=== PATIENT | male | born 1955 ===

== ENCOUNTER 2021-12-16 02:08 | Emergency (ER) | payer MEDICARE, SELFPAY ==
--- NOTE | ~2021-12-16 | XR_ITS ---
EXAMINATION: XR SHOULDER, RIGHT CLINICAL INFORMATION: Status post fall COMPARISON: None TECHNIQUE: Three views of the right shoulder. FINDINGS: Glenohumeral alignment is anatomic. No acute fracture is seen. The acromioclavicular joint appears intact with mild degenerative change. XR/XR shoulder RT min 2V IMPRESSION: No acute findings.
[2021-12-16 02:15] VITALS: BP 168/80; PULSE 84; O2SAT 98
[2021-12-16 02:20] VITALS: BP 150/81; PULSE 73; RESP 14; TEMP 36.6; O2SAT 96; BMI 24.4
--- NOTE | 2021-12-16 02:24 | ED_ITS ---
HPI - Fall General Chief Complaint: Fall Stated Complaint: fall/ RT shoulder pain Time Seen by Provider: 12/16/21 02:24 Source: patient Mode of arrival: ambulatory Limitations: no limitations History of Present Illness HPI Narrative: Patient a minor fall at home fell on his bed when tried to lay down no severe injuries but complaining of pain the right shoulder came with no deformity no other injury Related Data Allergies Allergy/AdvReac Type Severity Reaction Status Date / Time No Known Allergies Allergy Verified 12/16/21 02:35 Review of Systems Review of Systems: Yes all other systems are reviewed and are negative [facility] Social History Social History Advance Directives: No Physical Exam Vital Signs: Vital Signs: Last Vital Signs Temp 97.9 F 12/16/21 02:20 Pulse 73 12/16/21 02:20 Resp 14 12/16/21 02:20 BP 150/81 H 12/16/21 02:20 Pulse Ox 96 12/16/21 02:20 BMI result Body Mass Index 24.4 Appearance: Alert. Oriented X3. No acute distress. Eyes: PERRLA, HEENT: Pharynx normal. Oral Mucosa moist atraumatic normocephalic Neck: Normal inspection. Neck supple. CVS: Normal heart rate and rhythm. Pulses normal. Respiratory: No respiratory distress. Equal air entry bilateral, no wheezing/rales/rhonchi Abdomen: Soft and nontender. Bowel sounds are present, no mass palpable, Skin: Skin warm and dry. Normal skin color. Normal skin turgor. Extremities: No lower extremity edema. No calf tenderness right shoulder normal contour no deformity neurovascular intact soft tissue tenderness++ Neuro: Oriented X 3. No motor deficit. MDM - Fall MDM Narrative Medical decision making narrative: Patient x-ray negative for any fracture dislocation patient moving his right arm pretty well likely patient has rotator cuff tendinitis causing the pain. Will discharge patient home Discharge Plan Discharge Clinical Impression: Contusion of right shoulder Patient Disposition: Home, Self-Care Instructions: Fall Prevention for Older Adults (ED), Contusion in Adults (ED) Additional Instructions: Care and cautions as advised Follow-up with PCP Interventions: ED Discharge Assessment Last Done: 12/16/21 04:30 Discharge Date/Time: 12/16/21 04:35
== END 2021-12-16 04:35 | disposition home or self-care (01) ==
LOC: HO.ED 04:36
PROVIDERS: Emergency Provider Internal Medicine
DX: S40.011A Contusion of right shoulder, initial encounter (principal); W19.XXXA Unspecified fall, initial encounter; Y93.9 Activity, unspecified; Y92.003 Bedroom of unspecified non-institutional (private) residence as the place of occurrence of the external cause; Y99.9 Unspecified external cause status
CPT/HCPCS: 73030; 99283; 99284

== ENCOUNTER 2021-12-23 11:13 | Inpatient (IN) | payer MEDICARE, SELFPAY ==
--- NOTE | ~2021-12-23 | XR_ITS ---
EXAMINATION: XR LUMBOSACRAL SPINE CLINICAL INFORMATION: Low back pain. COMPARISON: None TECHNIQUE: Three views of the lumbosacral spine. FINDINGS: There is normal lumbar lordosis. The vertebral heights and alignment is normal. There is right-sided disc prosthesis at L4-L5. There is loss of L5-S1 disc height. Rest the disc heights are normal. There are bilateral pedicular screws at L2, L3 , L4 and L5 vertebra with interconnecting rods for posterior fusion. No acute fracture or lytic process seen. The SI joints are symmetrical. The paravertebral soft tissues are normal. XR/XR lumbar spine 2-3V IMPRESSION: Disc prosthesis at L4-L5 disc level with degenerative disc changes L5-S1 disc level. No visible acute fracture or dislocation seen. There are bilateral L 2 to L5 pedicle screws and interconnecting rods for posterior stability.
--- NOTE | ~2021-12-23 | CT_ITS ---
EXAMINATION: CT HEAD WITHOUT CONTRAST CT CERVICAL SPINE WITHOUT CONTRAST CLINICAL INFORMATION: Unwitnessed fall. Neck pain and headache. COMPARISON: CT head 09/22/2021. Selected images of the cervical spine MRI of 12/07/2021. TECHNIQUE: Multidetector volumetric CT imaging of the head and cervical spine is acquired without intravenous contrast administration. Postprocessing is performed at a dedicated workstation. Multiplanar reformatted images are submitted. This CT scan was performed using dose optimization techniques as appropriate to a performed exam including the following: *Automated exposure control. *Adjustment of mA and/or kV according to patient size (this includes techniques or standardized protocols for targeted exams were dose is matched to indication/reason for exam; i.e. extremities or head). *Use of iterative reconstruction technique. DLP: 487 mGy-cm (CT cervical spine). 789 mGy-cm (CT head). FINDINGS: CT HEAD: There is no evidence of acute intracranial hemorrhage, midline shift or mass effect. [id number] matter differentiation is well preserved. No evidence of acute territorial infarction. There are bilateral periventricular white matter mild patchy low-attenuation changes likely of chronic microangiopathy. There is mild global volume loss with proportionate dilatation of the ventricles and cortical sulci. No evidence of abnormal extra-axial fluid collection. Osseous calvarium is intact. Calvarial soft tissues are unremarkable. Mastoid air cells and middle ear cavities are well aerated. A 2.2 cm mucous retention cyst in the visualized left maxillary sinus and smaller mucous retention cyst in the visualized right maxillary sinus are stable findings compared to previous CT. Remainder of the visualized paranasal sinuses are well aerated. CT CERVICAL SPINE: The vertebral body heights and alignment are maintained. Posterior elements are intact and in normal alignment. Anterior cervical fusion hardware is noted at C5-C6 with intervertebral disc spacer in place. Mild narrowing of the intervertebral disc spaces at C4-C5 and C6-C7. No evidence of tight central canal stenosis. [id number] bilateral neural foraminal stenosis is noted at C5-C6. No evidence of prevertebral soft tissue swelling. No significant thyroid nodule. Changes of centrilobular emphysema are noted in the lung apices. CT/CT cervical spine wo con IMPRESSION: HEAD: No evidence of acute intracranial abnormality. 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 CERVICAL SPINE: No evidence of acute fracture or subluxation in the cervical spine, greatest at C5-C6 with bilateral neural foraminal stenosis of [id number] degree. Cervical spondylosis. Anterior fusion hardware at C5-C6 is intact without evidence of loosening or hardware fracture.
--- NOTE | ~2021-12-23 | XR_ITS ---
EXAMINATION: XR HIP, RIGHT CLINICAL INFORMATION: Right hip pain COMPARISON: None TECHNIQUE: Two views of the right hip and AP pelvis. FINDINGS: AP pelvis: There is normal symmetry of bilateral hip joints and SI joints. No visible acute fracture, dislocation seen. AP and frog-leg views right hip reveal no bony erosive changes, loose bodies or periarticular spurring. No acute fracture or dislocation seen. The soft tissues of the right hip and normal. XR/XR hip RT min 2V IMPRESSION: Unremarkable right hip and AP pelvis exam.
--- NOTE | ~2021-12-23 | XR_ITS ---
EXAMINATION: XR SHOULDER, RIGHT CLINICAL INFORMATION: Right shoulder pain status post fall COMPARISON: 12/16/2021 TECHNIQUE: Three views of the right shoulder. FINDINGS: The bones and soft tissues are grossly normal. No fracture. Glenohumeral and acromioclavicular alignment is grossly normal. On the Y view, the humeral head appears minimally anteriorly displaced but this may be technical in nature. If possible, and axillary view could be obtained. No abnormal soft tissue calcifications. XR/XR shoulder RT min 2V IMPRESSION: Grossly normal right shoulder. No fracture is seen.
--- NOTE | ~2021-12-23 | CT_ITS ---
EXAMINATION: CT HEAD WITHOUT CONTRAST CT CERVICAL SPINE WITHOUT CONTRAST CLINICAL INFORMATION: Unwitnessed fall. Neck pain and headache. COMPARISON: CT head 09/22/2021. Selected images of the cervical spine MRI of 12/07/2021. TECHNIQUE: Multidetector volumetric CT imaging of the head and cervical spine is acquired without intravenous contrast administration. Postprocessing is performed at a dedicated workstation. Multiplanar reformatted images are submitted. This CT scan was performed using dose optimization techniques as appropriate to a performed exam including the following: *Automated exposure control. *Adjustment of mA and/or kV according to patient size (this includes techniques or standardized protocols for targeted exams were dose is matched to indication/reason for exam; i.e. extremities or head). *Use of iterative reconstruction technique. DLP: 487 mGy-cm (CT cervical spine). 789 mGy-cm (CT head). FINDINGS: CT HEAD: There is no evidence of acute intracranial hemorrhage, midline shift or mass effect. Bqwr-io-coyqf matter differentiation is well preserved. No evidence of acute territorial infarction. There are bilateral periventricular white matter mild patchy low-attenuation changes likely of chronic microangiopathy. There is mild global volume loss with proportionate dilatation of the ventricles and cortical sulci. No evidence of abnormal extra-axial fluid collection. Osseous calvarium is intact. Calvarial soft tissues are unremarkable. Mastoid air cells and middle ear cavities are well aerated. A 2.2 cm mucous retention cyst in the visualized left maxillary sinus and smaller mucous retention cyst in the visualized right maxillary sinus are stable findings compared to previous CT. Remainder of the visualized paranasal sinuses are well aerated. CT CERVICAL SPINE: The vertebral body heights and alignment are maintained. Posterior elements are intact and in normal alignment. Anterior cervical fusion hardware is noted at C5-C6 with intervertebral disc spacer in place. Mild narrowing of the intervertebral disc spaces at C4-C5 and C6-C7. No evidence of tight central canal stenosis. Wrzldkke-mr-yhwoam bilateral neural foraminal stenosis is noted at C5-C6. No evidence of prevertebral soft tissue swelling. No significant thyroid nodule. Changes of centrilobular emphysema are noted in the lung apices. CT/CT head/brain wo con IMPRESSION: HEAD: No evidence of acute intracranial abnormality. 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 CERVICAL SPINE: No evidence of acute fracture or subluxation in the cervical spine, greatest at C5-C6 with bilateral neural foraminal stenosis of airhdvhv-wh-wjrdtt degree. Cervical spondylosis. Anterior fusion hardware at C5-C6 is intact without evidence of loosening or hardware fracture.
--- NOTE | ~2021-12-23 | XR_ITS ---
EXAMINATION: XR CHEST CLINICAL INFORMATION: Shortness of breath COMPARISON: None TECHNIQUE: Frontal view of the chest was obtained. FINDINGS: Cardiac leads overlie the chest. The lungs are well expanded. There is no focal consolidation, edema, or effusion. No pneumothorax. The cardiomediastinal silhouette is within normal limits. No acute osseous abnormality. XR/XR chest 1V IMPRESSION: No acute pulmonary finding.
[2021-12-23 11:24] VITALS: BP 96/48; PULSE 89; RESP 19; TEMP 36.6; O2SAT 98; BMI 23.7
--- NOTE | 2021-12-23 11:51 | ED_ITS ---
HPI - General Adult General Chief complaint: Back Pain/Injury Stated complaint: back and leg pain Time Seen by Provider: 12/23/21 11:51 Source: patient Mode of arrival: other (ambulates with walker) Limitations: no limitations History of Present Illness HPI narrative: Patient is a 66 year old male presenting to the emergency department today with right hip pain and requesting senior living placement. Patient states that in July of 2021, he had a spinal fusion and he was in a rehab facility for 2 weeks. Patient states that he has been using a walker at home and feels like he would be better off at a senior living facility because he is still having frequent falls getting tripped up with his walker. Patient states that he also has a history of parkinsons. Patient denies falling today. Patient denies ever hitting his head with a fall. Patient states that his right hip has been bothering him some and he would like that checked while he is here. Patient denies any dizziness, lightheadedness, abdominal pain, nausea, vomiting, fever, chills, blurry vision, double vision, loss of vision, chest pain, difficulty breathing, shortness of breath, night sweats, pain with urination, increased urinary frequency, increased urinary urgency, blood in his urine or stool, syncope or a near syncopal episode, bowel incontinence, bladder incontinence, bowel retention, bladder retention, or any other complaints at this time. Onset (ago): month(s) Location: back and right (hip) Severity: mild Severity scale (1-10): 3 Quality: dull Pain Consistency: constant Relieving factors: none Exacerbating factors: none Associated symptoms: denies other symptoms Treatments prior to arrival: none Related Data Home Medications Medication Instructions Recorded Confirmed amlodipine 2.5 mg tablet 7.5 mg PO DAILY 12/23/21 12/23/21 ascorbic acid (vitamin C) 1,000 mg 1,000 mg PO DAILY 12/23/21 12/23/21 tablet carbidopa 25 mg-levodopa 100 mg 1 tab PO BID@0700,1300 12/23/21 12/23/21 tablet gabapentin 100 mg capsule 200 mg PO DAILY 12/23/21 12/23/21 gabapentin 300 mg capsule 300 mg PO BEDTIME 12/23/21 12/23/21 lisinopril 10 mg tablet 10 mg PO DAILY 12/23/21 12/23/21 melatonin 3 mg tablet 3 mg PO BEDTIME PRN 12/23/21 12/23/21 ropinirole 0.25 mg tablet 0.25 mg PO BEDTIME 12/23/21 12/23/21 Allergies Allergy/AdvReac Type Severity Reaction Status Date / Time No Known Allergies Allergy Verified 12/16/21 02:35 Review of Systems Constitutional: Constitutional: Reports no additional constitutional complaints, Denies chills, Denies fever(s) and Denies night sweats Eyes: Eyes: Reports no additional eye complaints, Denies blurry vision, Denies change in vision, Denies diplopia, Denies eye discharge, Denies loss of vision and Denies eye pain ENT: Denies dizziness Cardiovascular: Cardiovascular: Reports no additional cardiovascular complaints, Denies chest pain, Denies lightheadedness, Denies Loss of Consciousness and Denies dyspnea Respiratory: Respiratory: Reports no additional respiratory complaints and Denies dyspnea Gastrointestinal: Gastrointestinal: Reports no additional gastrointestinal complaints, Denies abdominal pain, Denies melena, Denies hematochezia, Denies change in bowel habits and Denies change in stool character Genitourinary: Genitourinary: Reports no additional male genitourinary complaints, Denies hematuria, Denies oliguria, Denies difficulty urinating, Denies dysuria, Denies urinary frequency, Denies urinary hesitancy, Denies urinary incontinence and Denies urinary urgency Musculoskeletal: Musculoskeletal: Reports no additional musculoskeletal compla ints, Denies numbness and Denies tingling Comments: right hip pain, chronic back pain Neurologic: Denies dizziness, Denies loss of vision, Denies numbness and Denies tingling Psychiatric: Psychiatric: Reports no additional psychiatric complaints Endocrine: Endocrine: Reports no additional endocrine complaints Hematologic/Lymphatic: Hematologic/Lymphatic: Reports no additional hematologic/lymphatic complaints Allergic/Immunologic: Allergic/Immunologic: Reports no additional allergic/immunologic complaints [facility] Past Medical History Attestation statement: The following information was validated with the patient. Source: old records reviewed Social History Social History Alcohol intake: former Patient Tobacco Use Status: Former Tobacco user Use of substances other than those prescribed or required for medical reasons: No Advance Directives: No Advance Directives Information Provided: No Physical Exam ED Vital Signs: Vital Signs - 24 hr 12/23/21 11:24 12/23/21 13:15 12/23/21 14:35 Temperature 98 F 98.5 F Pulse Rate 89 89 79 Respiratory Rate 19 16 Blood Pressure 96/48 L 96/48 L 133/70 Pulse Oximetry 98 98 99 BMI result Body Mass Index 23.7 Const General: cooperative, no acute distress, alert and awake Nutritional Appearance: well nourished Orientation/consciousness: patient oriented x3 Limitations: no limitations HENMT Head: Yes normal to inspection and Yes atraumatic Ears: hearing grossly normal bilaterally and external ears normal General nose exam: Normal external nose present, no nasal discharge noted and no epistaxis Face and sinus: Yes normal facial exam, No abrasion and No laceration Mouth: Normal oral and palatal mucosa present, no drooling and no muffled voice Eyes General: appearance normal, both eyes and all related structures Periorbital: periorbital findings normal Eyelids: Yes eyelids normal Conjunctivae: conjunctivae normal Pupils: Equal, round and reactive pupils present EOM: EOMs intact bilaterally Neck Neck: Yes normal visual inspection, Yes full ROM and Yes no lymphadenopathy Chest Chest palpation & inspection: normal inspection of the chest Resp Effort & Inspection: normal respiratory effort and able to speak in complete sentences Auscultation: clear to auscultation bilaterally Cardio Rate: regular rate Rhythm: regular rhythm GI Inspection: Yes normal to inspection Neuro General: patient oriented x3 and moves all extremities Cranial nerves: Yes Equal, round and reactive pupils present Cognition (Neuro): normal cognition Motor exam (neuro): 5/5 motor strength present throughout Sensory Exam: Normal double simultaneous stimulation for sensation Coordination: [id number] test normal Extrem General: Yes normal to inspection, Yes full ROM and Yes capillary refill normal Psych Appearance: grossly normal Mental Status: mental status grossly normal Affect: normal affect Attitude: cooperative Thought process: Normal thought process present Thought content: Normal thought content present Insight: Good insight present (Psych) Medical Decision Making MDM Narrative Medical decision making narrative: Patient is a 66 year old male presenting to the emergency department today with right hip pain, back pain, and requesting nursing placement. Patient's physical exam was unremarkable. Patient's blood work was unremarkable. Patient's right hip and lumbar x-rays showed no acute process. I explained my physical exam findings as well as all test results to the patient. I answered all questions asked by the patient. Patient is still awaiting OT, PT and case management evaluation. Physician Observation begun at 1900. Differential Diagnosis Differential Diagnosis: Right hip pain, chronic back pain Medical Records Medical records reviewed: Yes I reviewed the patient's medical records. Lab Data Lab results reviewed: Yes I reviewed the patient's lab results. Result diagrams: 12/23/21 12:47 12/23/21 12:48 Labs: Lab Results 12/23/21 12/23/21 12/23/21 Range/Units 12:47 12:48 12:48 WBC 8.1 (4.8-10.8) X10*3/uL RBC 3.98 L (4.60-5.80) X10*6/uL Hgb 12.0 L (14.0-18.0) g/dl Hct 36.0 L (42.0-52.0) % MCV 90.5 (80.0-98.0) fL MCH 30.2 (27.0-33.0) pg MCHC 33.3 (31.0-36.0) g/dl RDW 12.4 (11.0-16.0) % Plt Count 356 (160-400) X10*3/uL MPV 8.8 L (9.4-12.4) fL Immature Gran % (Auto) 0.4 (0.0-0.4) % Neut % (Auto) 73.6 H (45-73) % Lymph % (Auto) 13.1 L (20-40) % [place] % (Auto) 11.6 H (2-11) % Eos % (Auto) 1.1 (0-4) % Baso % (Auto) 0.2 (0-2) % Lymph # (Auto) 1.1 L (1.2-4.9) X10*3/uL [place] # (Auto) 0.9 (0.1-1.2) X10*3/uL Eos # (Auto) 0.1 (0.0-0.4) X10*3/uL Baso # (Auto) 0.0 (0.0-0.2) X10*3/uL Abs Immat Gran (auto) 0.03 (0.00-0.03) X10*3/uL Absolute Neuts (auto) 6.0 (2.0-8.3) x10*3/uL Absolute Nucleated RBC 0.000 (0.0-0.012) X10*3/uL Nucleated RBC % (auto) 0.0 (0.0-0.2) /100WBC Sodium 136 (135-145) mmol/L Potassium 4.1 (3.3-5.1) mmol/L Chloride 101 (96-108) mmol/L Carbon Dioxide 26 (22-29) mmol/L Anion Gap 13 (12-20) BUN 11 (9-16) mg/dL Creatinine 0.75 (0.5-1.4) mg/dL Estim Creat Clear Calc 101.7 Estimated GFR > 60 Random Glucose 103 (60-115) mg/dL Calcium 8.6 (8.4-10.2) mg/dL Total Bilirubin 0.8 (0.0-1.0) mg/dL AST 19 (5-37) U/L ALT 9 (0-40) U/L Alkaline Phosphatase 84 (39-117) U/L Total Protein 6.1 L (6.5-8.0) g/dL Albumin 3.6 (3.5-5.0) g/dL COVID-19 (MIR) Negative (Negative) COVID-19 Clin Com See Note Imaging Data Right hip x-ray: Attestation: I personally reviewed and interpreted this imaging study as follows: My impression: No acute process. Radiologist's impression: EXAMINATION: XR HIP, RIGHT CLINICAL INFORMATION: Right hip pain COMPARISON: None TECHNIQUE: Two views of the right hip and AP pelvis. FINDINGS: AP pelvis: There is normal symmetry of bilateral hip joints and SI joints. No visible acute fracture, dislocation seen. AP and frog-leg views right hip reveal no bony erosive changes, loose bodies or periarticular spurring. No acute fracture or dislocation seen. The soft tissues of the right hip and normal.? XR/XR hip RT min 2V IMPRESSION: Unremarkable right hip and AP pelvis exam. Dictated By: Bull Raza MD Signed By: Electronically signed by Bull Raza MD 12/23/21 5530 Lumbar x-ray: Attestation: I personally reviewed and interpreted this imaging study as follows: My impression: EXAMINATION: XR LUMBOSACRAL SPINE CLINICAL INFORMATION: Low back pain. COMPARISON: None TECHNIQUE: Three views of the lumbosacral spine. FINDINGS: There is normal lumbar lordosis. The vertebral heights and alignment is normal. There is right-sided disc prosthesis at L4-L5. There is loss of L5-S1 disc height. Rest the disc heights are normal. There are bilateral pedicular screws at L2, L3 , L4 and L5 vertebra with interconnecting rods for posterior fusion. No acute fracture or lytic process seen. The SI joints are symmetrical. The paravertebral soft tissues are normal. XR/XR lumbar spine 2-3V IMPRESSION: Disc prosthesis at L4-L5 disc level with degenerative disc changes L5-S1 disc level. No visible acute fracture or dislocation seen. There are bilateral L 2 to L5 pedicle screws and interconnecting rods for posterior stability. Dictated By: Bull Raza MD Signed By: Electronically signed by Bull Raza MD 12/23/21 4166 Discharge Plan Discharge Clinical Impression: Hip pain, Back pain, Parkinson disease Patient Disposition: Still a Patient Prescriptions: No Action melatonin 3 mg Tablet 3 mg PO BEDTIME PRN (Reason: Sleep) 0RF lisinopril 10 mg Tablet 10 mg PO DAILY 0RF gabapentin 300 mg Capsule 300 mg PO BEDTIME 0RF gabapentin 100 mg Capsule 200 mg PO DAILY 0RF amlodipine 2.5 mg Tablet 7.5 mg PO DAILY 0RF carbidopa-levodopa 25-100 mg Tablet 1 tab PO BID@0700,1300 0RF ropinirole 0.25 mg Tablet 0.25 mg PO BEDTIME 0RF Rx Instructions: administer 1-3 hours before bedtime ascorbic acid (vitamin C) 1,000 mg Tablet 1,000 mg PO DAILY 0RF Print Language: Iraqi
[2021-12-23 12:53] LABS: MANUAL DIFF FLAG NO
[2021-12-23 12:54] LABS: Basophils Percent Auto 0.2 % (0-2); Eosinophils Absolute Auto 0.1 X10*3/uL (0.0-0.4); Eosinophils Percent Auto 1.1 % (0-4); Imm Gran Abs Auto 0.03 X10*3/uL (0.00-0.03); Imm Gran Pct Auto 0.4 % (0.0-0.4); Lymphocytes Absolute Auto 1.1 X10*3/uL (1.2-4.9); Lymphocytes Percent Auto 13.1 % (20-40); Mean Corpuscular HGB Conc 33.3 g/dl (31.0-36.0); Mean Corpuscular Hemoglobin 30.2 pg (27.0-33.0); Mean Corpuscular Volume 90.5 fL (80.0-98.0); Mean Platelet Volume 8.8 fL (9.4-12.4); Monocytes Absolute Auto 0.9 X10*3/uL (0.1-1.2); Monocytes Percent Auto 11.6 % (2-11); Neutrophils Percent Auto 73.6 % (45-73); Platelet Count 356 X10*3/uL (160-400); Red Blood Count 3.98 X10*6/uL (4.60-5.80); Red Cell Distribution Width 12.4 % (11.0-16.0); White Blood Count 8.1 X10*3/uL (4.8-10.8)
[2021-12-23 13:15] VITALS: BP 96/48; PULSE 89; O2SAT 98
[2021-12-23 13:15] LABS: COVID-19 Test Negative (Negative); IDNOW Serial# 55D5AD1C
[2021-12-23 13:19] LABS: Alanine Aminotransferase 9 U/L (0-40); Albumin Level 3.6 g/dL (3.5-5.0); Alkaline Phosphatase 84 U/L (39-117); Anion Gap 13 (12-20); Aspartate Amino Transferase 19 U/L (5-37); Bilirubin Total 0.8 mg/dL (0.0-1.0); Blood Urea Nitrogen 11 mg/dL (9-16); Calcium 8.6 mg/dL (8.4-10.2); Carbon Dioxide 26 mmol/L (22-29); Chloride 101 mmol/L (96-108); Creatinine Clr Calc Pharmacy 101.7; Estimated Glomerular Filt Rate > 60; Glucose Random 103 mg/dL (60-115); Potassium 4.1 mmol/L (3.3-5.1); Sodium 136 mmol/L (135-145); Total Protein 6.1 g/dL (6.5-8.0)
[2021-12-23 14:35] VITALS: BP 133/70; PULSE 79; RESP 16; TEMP 36.9; O2SAT 99
[2021-12-23] MEDS: Carbidopa/Levodopa 25/100 TABLET 0.5 TAB PO (14:58)
--- NOTE | 2021-12-23 15:09 | PC.NURSE ---
Pt describes mult recent falls at home. most recent was yesterday. i hit the floor hard . has been minimally ambulatory in department. just now was up to BR with shuffled gait, difficulty keeping center of gravity over feet. has walker now at bedside and will ring for help but even with walker is somewhat unsteady.
--- NOTE | 2021-12-23 15:28 | MHC.CM.ED ---
Addendum entered by Yancy Novoa 12/23/21 16:14: [facility] is not able to offer a bed. Patient was at [facility] from 08/04/21-. He was then transferred to [facility]. They feel patient needs intermediate level of care. This was discussed with patient. Patient requesting referrals to 1) [facility] and 2)[facility]. Referrals made via [facility]. [facility] Patient aware he will have to provide CM with at least 2 choices if [facility] and [facility] are not able to offer a bed. Original Note: Received case management consult from [facility]. Patient is from home.Has a history of Parksinson's. Patient has been experiencing increased weakness and falls. Work up essentially negative. Met with patient in regards to discharge planning. Patient lives with his girlfriend, ambulates with a walker and had no services prior to coming to the ER. PCP is Heather Ernst. Patient has been to [facility] in the past and is requesting a referral to that facility. Referral made via [facility]. Contuinue to monitor for d/c needs.
--- NOTE | 2021-12-23 16:14 | PHA.MEDREC ---
MED REC COMPLETE, NO ISSUES Pharmacy Consult ? Medication Reconciliation Pharmacy has completed the medication reconciliation.
--- NOTE | 2021-12-23 18:11 | MHC.CM.ED ---
CM waiting on bed offers [facility] or [facility]. [facility] did not offer a bed. Pt unhappy about staying overnight, but is agreeable. CM spoke with patient about plan if [facility] do not offer a bed. Pt reluctantly agreeable to referral at [facility] and [facility]. Referrals placed. CM to follow for d/c needs.
--- NOTE | 2021-12-23 18:14 | PC.NURSE ---
Pt has been up to bathroom mult times always with assist. poor balance
[2021-12-23 20:44] VITALS: BP 134/68; PULSE 88; RESP 18; TEMP 36.9; O2SAT 95
[2021-12-23] MEDS: rOPINIRole HCL 0.25 MG TABLET PO (20:48)
[2021-12-23] MEDS: Gabapentin 300 MG CAPSULE PO (20:48)
[2021-12-23 23:37] VITALS: BP 120/72; PULSE 128; RESP 18; TEMP 36.9; O2SAT 96
--- NOTE | 2021-12-24 01:25 | PC.NURSE ---
I assumed nursing care of David at 1900. Since that time he has remained alert, oriented x 3. He is aware that he is awaiting case management eval in the morning and verbalizes an understanding of this. He has no complaints: no chest pain, no SOB, speech clear and appropriate. No nausea, no vomiting. He is taking PO food, fluids and meds without difficulty. David has ambulated to and from the bathroom in bed 7 with the walker. He insists that he is fine doing this by himself. However, he is not. He is extremely unsteady and has difficulty lifting his legs to take steps - he appears as if he needs to drag his legs while leaning forward on the walker. I assisted the pt into and out from the bathroom and back into his stretcher safely. We will continue to monitor David.
[2021-12-24 05:50] VITALS: BP 140/74; PULSE 105; RESP 18; TEMP 36.7; O2SAT 97
[2021-12-24] MEDS: Gabapentin 100 MG CAPSULE 200 MG PO (08:01)
[2021-12-24] MEDS: lisinopriL 10 MG TABLET PO (08:02)
[2021-12-24] MEDS: Ascorbic Acid 500 MG TABLET 1000 MG PO (08:02)
[2021-12-24] MEDS: amLODIPine Besylate 2.5 MG TABLET 7.5 MG PO (08:03)
[2021-12-24] MEDS: Carbidopa/Levodopa 25/100 TABLET 1 TAB PO ×2 (08:03→12:33)
[2021-12-24 10:44] VITALS: BP 137/80; PULSE 91; RESP 14; O2SAT 95
[2021-12-24] MEDS: Acetaminophen 325 MG TABLET 975 MG PO (10:46)
--- NOTE | 2021-12-24 11:38 | PC.NURSE ---
Patient is alert and oriented x3. VSS. Patient reports chronic lower back and right knee/thigh pain ranging from 3/10-10/10. Patient was medicated with Tylenol 975 mg-reports good relief-pain level is 4/10 at present. Patient ambulates with a w/walker-gait is slow, unsteady at times. Patient requires supervision with ambulation. Patient instructed to use a call lee/ inform staff to receive assistance get out of the bed to prevent falls-patient verbalized understanding. Patient taking medications with good compliance-no issues swallowing. Appetite is good. Last BM 12/23/2021. Skin assessment completed-no open wounds noted. Patient is able to make his needs known.
[2021-12-24 17:47] VITALS: BP 140/73; PULSE 96; RESP 16; TEMP 36.7; O2SAT 95
[2021-12-24 18:00] VITALS: BP 143/73; PULSE 85; RESP 15; TEMP 37.2; O2SAT 97
--- NOTE | 2021-12-24 18:35 | PC.NURSE ---
Patient is bed reporting that he fell about 30 min ago while trying to get out of the bed, patient reports new pain in right shoulder 7/10 at present-patient also reports chronic, intrmittent pain in right shoulder that could go up to 5/10. Patient denies nausea, no changes to vision. Patient reports he fell on his his right arm and did not strike his head. VS obtained-stable. Provider notified-pt to have X-ray of right shoulder and CT scan of head.
[2021-12-24] MEDS: Gabapentin 300 MG CAPSULE PO (21:34)
[2021-12-24] MEDS: rOPINIRole HCL 0.25 MG TABLET PO (21:34)
[2021-12-25 00:33] VITALS: BP 134/78; PULSE 116; RESP 16; TEMP 36.9; O2SAT 97
[2021-12-25 06:28] VITALS: BP 137/64; PULSE 104; RESP 14; O2SAT 95
--- NOTE | 2021-12-25 07:02 | PC.NURSE ---
pt moved 13 due fall and monitoring camera in place. Bed alarm on.
[2021-12-25] MEDS: Ascorbic Acid 500 MG TABLET 1000 MG PO (07:21)
[2021-12-25] MEDS: Carbidopa/Levodopa 25/100 TABLET 1 TAB PO ×2 (07:21→13:22)
[2021-12-25] MEDS: lisinopriL 10 MG TABLET PO (07:21)
[2021-12-25] MEDS: Gabapentin 100 MG CAPSULE 200 MG PO (07:21)
[2021-12-25] MEDS: amLODIPine Besylate 2.5 MG TABLET 7.5 MG PO (07:21)
--- NOTE | 2021-12-25 09:09 | MHC.CM.ED ---
Addendum entered by Yancy Novoa 12/25/21 10:36: [facility]'t [facility] bed today. Met with patient in regards to discharge planning again. Referral made to [facility] at patient's request. Continue to monitor for d/c needs. Original Note: Patient remains in ER. [facility] does not have a male bed available today. Clinical updates sent to [facility]. [facility] does not have a bed. Continue to monitor for d/c needs.
[2021-12-25 13:19] VITALS: BP 112/68; PULSE 82; RESP 19; TEMP 36.6; O2SAT 99
[2021-12-25 21:09] VITALS: BP 128/65; PULSE 87; RESP 19; TEMP 37.2; O2SAT 95
[2021-12-25] MEDS: Gabapentin 300 MG CAPSULE PO (21:11)
[2021-12-25] MEDS: rOPINIRole HCL 0.25 MG TABLET PO (22:02)
--- NOTE | 2021-12-25 23:05 | PC.NURSE ---
pt climbing OOB standing up before redirected by staff. telesitted alarmed notified staff
--- NOTE | 2021-12-25 23:15 | PC.NURSE ---
pt attemping to climb OOB, redirection with minimal effect
[2021-12-25 23:35] VITALS: BP 137/69; PULSE 91; RESP 18; O2SAT 96
--- NOTE | 2021-12-25 23:48 | PC.NURSE ---
This RN contacting nursing mattress and boxsprings supervisor regarding need for a sitter as pt keeps getting out of bed with video monitor. Per nursing mattress and boxsprings supervisor, no sitters available. This RN contacting monitor room, asking them to sound the alarm before pt gets OOB.
[2021-12-26] VITALS (13 sets, daily range): BP systolic 113–140; BP diastolic 64–89; PULSE 75–126; RESP 11–24; TEMP 36.4–36.9; O2SAT 95–100
--- NOTE | 2021-12-26 | ECG_ITS ---
Test Reason : tachy Blood Pressure : / mmHG Vent. Rate : 108 BPM Atrial Rate : 000 BPM P-R Int : 000 ms QRS Dur : 094 ms QT Int : 330 ms P-R-T Axes : 000 002 110 degrees QTc Int : 442 ms Sinus rhythm in first part of EKG; Frequent PACs in second half Nonspecific ST and T wave abnormality Premature ventricular complexes Abnormal ECG No previous ECGs available Referred By: Meena Crisostomo Electronically Signed By:AMANDA MAST
[2021-12-26] MEDS: LORazepam 1 MG TABLET PO (01:00)
--- NOTE | 2021-12-26 04:53 | PC.NURSE ---
pt noted to be intermittently tachycardic, state ekg obtained which showed afib with RVR. HR 70-122 MD ventura notified. pt intermittently desaturates to 89-90% on RA before improving to 95%
[2021-12-26 04:56] LABS: MANUAL DIFF FLAG NO
[2021-12-26 04:57] LABS: Basophils Percent Auto 0.4 % (0-2); Eosinophils Absolute Auto 0.3 X10*3/uL (0.0-0.4); Eosinophils Percent Auto 3.4 % (0-4); Hematocrit 37.1 % (42.0-52.0); Hemoglobin 12.4 g/dl (14.0-18.0); Imm Gran Abs Auto 0.03 X10*3/uL (0.00-0.03); Imm Gran Pct Auto 0.4 % (0.0-0.4); Lymphocytes Absolute Auto 1.6 X10*3/uL (1.2-4.9); Lymphocytes Percent Auto 21.3 % (20-40); Mean Corpuscular HGB Conc 33.4 g/dl (31.0-36.0); Mean Corpuscular Volume 89.8 fL (80.0-98.0); Mean Platelet Volume 8.8 fL (9.4-12.4); Monocytes Percent Auto 14.2 % (2-11); Neutrophils Absolute Auto 4.4 x10*3/uL (2.0-8.3); Neutrophils Percent Auto 60.3 % (45-73); Platelet Count 401 X10*3/uL (160-400); Red Blood Count 4.13 X10*6/uL (4.60-5.80); Red Cell Distribution Width 12.5 % (11.0-16.0); White Blood Count 7.3 X10*3/uL (4.8-10.8)
[2021-12-26 04:59] LABS: VBG Base Excess 5.8 mmol/L; VBG HCO3 32 mmol/L (22-26); VBG pCO2 53 mmHg; VBG pH 7.38 (7.32-7.43); VBG pO2 50 mmHg
[2021-12-26 05:00] LABS: Venous Blood Gas Refer to POC result
[2021-12-26 05:03] LABS: INTERNATIONAL NORM RATIO 1.1 (0.9-1.1); Prothrombin Time 12.1 SEC (9.9-13.0)
[2021-12-26 05:05] LABS: D Dimer High Sensitivity 611 NG/ML
[2021-12-26 05:11] LABS: COVID-19 Test Negative (Negative); IDNOW Serial# 16C4AD1C; Influenza A Negative (Negative); Influenza B2 Negative (Negative)
[2021-12-26 05:16] LABS: Alanine Aminotransferase 20 U/L (0-40); Albumin Level 3.6 g/dL (3.5-5.0); Alkaline Phosphatase 89 U/L (39-117); Anion Gap 10 (12-20); Aspartate Amino Transferase 19 U/L (5-37); Bilirubin Total 0.9 mg/dL (0.0-1.0); Blood Urea Nitrogen 11 mg/dL (9-16); Carbon Dioxide 30 mmol/L (22-29); Chloride 101 mmol/L (96-108); Creatinine Clr Calc Pharmacy 104.5; Estimated Glomerular Filt Rate > 60; Glucose Random 104 mg/dL (60-115); Magnesium 2.3 mg/dL (1.6-2.6); Potassium 4.3 mmol/L (3.3-5.1); Sodium 137 mmol/L (135-145); Total Protein 6.3 g/dL (6.5-8.0)
[2021-12-26 05:18] LABS: B Type Natriuretic Peptide 106 pg/mL (<100)
[2021-12-26] MEDS: Carbidopa/Levodopa 25/100 TABLET 1 TAB PO ×2 (06:55→16:32)
[2021-12-26] MEDS: Furosemide 40 MG/4 ML VIAL IVPUSH (06:55)
--- NOTE | 2021-12-26 07:00 | CA_ITS ---
Transthoracic Echocardiogram Patient (Last, First, Middle): David Julio D Gender: Male Date of : 1955 Age: 66 Procedure Date: 12/26/2021 Procedure Type: Transthoracic Echocardiogram Location: ER Height: 180.34 cm Weight: 77.11 kg BSA: 1.97 m2 Heart Rate: bpm BP: 117 / 64 [address] Vending Route Driver: [id number] Referring MD: Kevin Fernandes MD Symptoms: new onset a. fib, possible chf Study Quality: Fair/contast ECG Rhythm: Sinus with PACs Conclusions: - The left ventricular systolic function is moderately decreased. The visually estimated ejection fraction is between 35-40%. - The basal inferior segment is akinetic. - No obvious valvular pathology seen on this study. Findings Procedure Information Contrast agent, definity, is being given per protocol without apparent complications. Left Ventricle Normal left ventricular cavity size. There is mildly increased left ventricular wall thickness. The left ventricular systolic function is moderately decreased. The visually estimated ejection fraction is between 35 40%. There is moderate global hypokinesis. Diastolic function is normal for age. Wall Motion Rest Echo Findings The basal inferior segment is akinetic. Right Ventricle Normal right ventricular cavity size and systolic function. Atria The left atrium is moderately dilated. The right atrium is normal in size. Aortic Valve There is a normal trileaflet aortic valve. There is no aortic valve stenosis. There is no aortic valve regurgitation. Mitral Valve The mitral valve appears normal. There is no mitral valve regurgitation. There is no mitral valve stenosis. Pulmonic Valve The pulmonic valve is likely normal. Tricuspid Valve Normal tricuspid valve structure. There is trace tricuspid valve regurgitation. Tricuspid regurgitation envelope is inadequate for calculation of right ventricular systolic pressure. Great Vessels The asc aorta is normal in size. Venous The inferior vena cava was not well visualized. The inferior vena cava is normal in size. Pericardium/Pleural There is no evidence of pericardial effusion. Prior Study Comparison No prior study available for comparison. Recommendations, Care & Conclusions No obvious valvular pathology seen on this study. Measurements 2D Linear Measurements IVSd: 1.08 0.6-0.9/0.6-1.0 cm LVIDd: 5.52 3.9-5.3/4.2-5.9 cm LVIDd Index: 2.80 2.4-3.2/2.2-3.1 cm/m2 LVIDs: 4.54 2.0-3.6 cm LVPWd: 1.05 0.7-1.1 cm LA Diam: 3.90 2.7-3.8/3.0-4.0 cm LAIDs Index: 1.98 1.5-2.3 cm/m2 LV Mass: 290.68 67-162/88-224 g LV Mass Index: 147.55 43-95/49-115 g/m2 LVOT Diam: 2.10 3.0+(-)1.3 cm 2D Systolic Function EF 4C: 48.30 >55% EF 2C: 40.90 >55% EF BiP: 44.30 >55% Mitral Valve MV Pk E: 0.51 MV PK A: 0.77 MV Decel Time: 198.00 E/A: 0.70 E'Lateral: 9.14 E'Medial: 6.20 E/E' Med: 8.20 E/E' Lat: 5.60 PHT: 58.00 MVA PHT: 3.79 Decel [place]: 2.57 Aortic Valve AoV Pk Andrew: 1.80 AoV Mn Andrew: 1.12 AoV VTI: 0.33 AoV Pk Grad: 13.00 Aov Mn Grad: 6.00 KIM Cont.VTI: 2.19 LVOT LVOT Pk Andrew: 1.03 LVOT Mn Andrew: 0.72 LVOT VTI: 0.21 LVOT Pk Grad: 4.00 LVOT Mn Grad: 2.00 LVOT Diam: 2.10 LVOT Area: 3.46 Diastolic Function MV Pk E: 0.51 MV Pk A: 0.77 E/A: 0.70 E'Medial: 6.20 E/E' Med: 8.20 E' Laterial: 9.14 E/E' Lat: 5.60 Right Ventricle TAPSE (mm): 24.30 TVS' Andrew: 14.40 Tricuspid Valve RA Press: 3.00 Great Vessels Aorta Sinus of Valsalva: 3.12 2.0-3.[address] [place]: 2.48 1.7-3.4 cm Ao Asc: 2.80 2.1-3.4 cm Ao Arch: 3.20 Updated in Other Vendor System with Status of Final Bharathi Lawson MD electronically signed on 12/26/2021 4:47:35 PM with status of Final
--- NOTE | 2021-12-26 07:47 | MHC.CM.ED ---
Patient remains in ER. Received notification from Dr Crisostomo that patient will be admitted due to new Afib and CHF. [facility] made aware. Continue to monitor for d/c needs.
[2021-12-26] MEDS: Ascorbic Acid 500 MG TABLET 1000 MG PO (08:43)
[2021-12-26] MEDS: Gabapentin 100 MG CAPSULE 200 MG PO (08:43)
--- NOTE | 2021-12-26 08:45 | PC.NURSE ---
Pt alert/oriented x 2, more confused at times. Skin pwd. SPeech clear. Afib with RVR on tele rate 120s, Dr Fernandes to bedside for evaluation and plan. 95% on room air at this time. Breathing even/unlabored. Bruising to right hip noted, denies pain at this time. Condom cath applied to monitor output, voided 500ml in urinal prior to cath placement
--- NOTE | 2021-12-26 08:49 | P.HPHOSP_ITS ---
History of Present Illness Date of Service: 12/26/21 Chief Complaint: Back pain The patient is a 66 year old male with a PMH of Parksinson disese (reports diagnosed in 2020), HTN, multiple prior back surgeries with last one in Jul 2021 for Spinal fusion who presented to [facility] ED on 12/23/20 with complaints of hip and back pain. He presented seeking placement to a rehab facility. The patient underwent multiple imaging modalities with no acute findings. (See EMR for full reports). Multiple rehab facilities were contacted and while awating placement, the patient was noted to be tachycardic (on the morning of 12/26) and mildly hypoxic with sats as low at 89% on RA. Work up was ordered including EKG + cxr + blood work. He was found to be in A. Fib with RVR with a mildly elevated BNP. He was given a dose of IV lasix and admission was requested. The patient is seen and examined in the ED on 12/26/21 around 9AM. He reports no current complaints. He denies chest pain, sob, cough. He denies palpitations or lightheadedness. He denies nausea/vomiting/abdominal pain. He denies a known prior history of A. Fib. In regards to his medical history -- he rememebers his back surgeries + HTN + parkinson's. The reaminder of the history is obtained from his significant other Meena Oquendo @ [phone]. Meena reports that he did, indeed, have back surgery in Jul 2021. After this it appears he spent 1 month total between 2 rehab facilities. Since then, he was been doing fairly well. He ambulates with a walker, but she states that he has falls nearly every day. She reports these falls to be mechanical in nature. No reports of syncopal episodes. She denies any prior A. Fib. She reports that during his back surgery hospitalization -- she was told that he probably has had a stroke at some point in the past. She reports his memory is intact on most day, but does have periods where he has trouble recalling things. The patients HR during my exam was in the 110-120s. He was saturating in the 90s on room air. He appears to be without any distress. Review of Systems Review of Systems: negative except HPI [facility] Medical History (Updated 12/26/21 @ 10:12 by Kevin Fernandes MD) HTN (hypertension) Parkinson disease Pertinent family history: No reported history of A. Fib or parkinsons Surgical History (Updated 12/26/21 @ 05:54 by Mike Joshua) H/O spinal fusion Social History (Updated 12/26/21 @ 10:13 by Kevin Fernandes MD) Alcohol intake: former Patient Tobacco Use Status: Former Tobacco user Use of substances other than those prescribed or required for medical reasons: No Substance Use Type: Marijuana Advance Directives: No Advance Directives Information Provided: No Meds Allergies Allergy/AdvReac Type Severity Reaction Status Date / Time No Known Allergies Allergy Verified 12/16/21 02:35 Active Medications: Current Medications Amlodipine Besylate (Amlodipine Besylate 2.5 Mg Tablet) 7.5 mg PO DAILY [facility]; Protocol Last Admin: 12/25/21 07:21 Dose: 7.5 mg Documented by: Ascorbic Acid (Ascorbic Acid 500 Mg Tablet) 1,000 mg PO DAILY [facility] Last Admin: 12/26/21 08:43 Dose: 1,000 mg Documented by: Carbidopa/Levodopa (Carbidopa/Levodopa 25/100 Tablet) 1 tab PO BID@0700,1300 [facility] Last Admin: 12/26/21 06:55 Dose: 1 tab Documented by: Gabapentin (Gabapentin 100 Mg Capsule) 200 mg PO DAILY [facility] Last Admin: 12/26/21 08:43 Dose: 200 mg Documented by: Gabapentin (Gabapentin 300 Mg Capsule) 300 mg PO BEDTIME [facility] Last Admin: 12/25/21 21:11 Dose: 300 mg Documented by: Lisinopril (Lisinopril 10 Mg Tablet) 10 mg PO DAILY [facility]; Protocol Last Admin: 12/25/21 07:21 Dose: 10 mg Documented by: Melatonin (Melatonin 3 Mg Tablet) 3 mg PO BEDTIME PRN PRN Reason: Sleep Pharmacy Consult (Consult Rx Perform Med Rec) 1 each MISCELLANE ONCE PRN PRN Reason: Consult order Ropinirole HCl (Ropinirole Hcl 0.25 Mg Tablet) 0.25 mg PO BEDTIME [facility] Last Admin: 12/25/21 22:02 Dose: 0.25 mg Documented by: Home Medications Medication Instructions Recorded Confirmed Last Taken Type amlodipine 2.5 mg tablet 7.5 mg PO DAILY 12/23/21 12/23/21 12/23/21 History ascorbic acid (vitamin C) 1,000 mg 1,000 mg PO DAILY 12/23/21 12/23/21 Unknown History tablet carbidopa 25 mg-levodopa 100 mg 1 tab PO BID@0700,1300 12/23/21 12/23/21 12/23/21 History tablet gabapentin 100 mg capsule 200 mg PO DAILY 12/23/21 12/23/21 12/23/21 History gabapentin 300 mg capsule 300 mg PO BEDTIME 12/23/21 12/23/21 12/22/21 History lisinopril 10 mg tablet 10 mg PO DAILY 12/23/21 12/23/21 12/23/21 History melatonin 3 mg tablet 3 mg PO BEDTIME PRN 12/23/21 12/23/21 Unknown History ropinirole 0.25 mg tablet 0.25 mg PO BEDTIME 12/23/21 12/23/21 12/22/21 History Physical Exam Vital Signs and Narrative: Vital Signs: Last Vital Signs Temp 97.5 F 12/26/21 05:54 Pulse 84 12/26/21 06:47 Resp 24 H 12/26/21 06:47 BP 113/72 12/26/21 06:47 Pulse Ox 99 12/26/21 06:47 BMI result Body Mass Index 23.7 Const: Other: Constitutional - Awake and Alert, No apparent distress Eyes - PERRLA, EOMI Cardiovascular - S1S2, IRR with rates 110-120 on tele; no rales or JVD appreciated Respiratory - Normal lung expansion, Normal respiratory effort, No respiratory distress, CTA bilaterally Gastrointestinal - NT / ND; +BS; No rebound or guarding - No CVA tenderness Extremities - no calf tenderness bilaterally, no swelling Musculoskeletal - Normal inspection, normal ROM Skin - Warm/Dry; multiple areas of bruising in various stages of healing Neurological - AAOx2; able to obey basic commands Psychological - Appropriate affect Results Labs CBC and Chem 7: 12/26/21 04:48 12/26/21 04:48 Labs: Laboratory Results - last 24 hr 12/26/21 12/26/21 12/26/21 04:48 04:48 04:48 MCV 89.8 MCH 30.0 MCHC 33.4 RDW 12.5 Plt Count 401 H MPV 8.8 L Immature Gran % (Auto) 0.4 Neut % (Auto) 60.3 Lymph % (Auto) 21.3 [place] % (Auto) 14.2 H Eos % (Auto) 3.4 Baso % (Auto) 0.4 Lymph # (Auto) 1.6 [place] # (Auto) 1.0 Eos # (Auto) 0.3 Baso # (Auto) 0.0 Abs Immat Gran (auto) 0.03 Absolute Neuts (auto) 4.4 Absolute Nucleated RBC 0.000 Nucleated RBC % (auto) 0.0 PT INR D-Dimer High Sensitivty VBG pH VBG pCO2 VBG pO2 VBG HCO3 VBG O2 Saturation VBG Base Excess Anion Gap 10 L Estim Creat Clear Calc 104.5 Estimated GFR > 60 Random Glucose 104 Calcium 9.0 Magnesium 2.3 Total Bilirubin 0.9 AST 19 ALT 20 Alkaline Phosphatase 89 Troponin I High Sens 12.0 B-Natriuretic Peptide 106 H Total Protein 6.3 L Albumin 3.6 COVID-19 (MIR) COVID-Virgance Clin Com Influenza Type A (SUSAN) Influenza Type B (SUSAN) Influenza A & B Note 12/26/21 12/26/21 12/26/21 04:49 04:49 04:49 MCV MCH MCHC RDW Plt Count MPV Immature Gran % (Auto) Neut % (Auto) Lymph % (Auto) [place] % (Auto) Eos % (Auto) Baso % (Auto) Lymph # (Auto) [place] # (Auto) Eos # (Auto) Baso # (Auto) Abs Immat Gran (auto) Absolute Neuts (auto) Absolute Nucleated RBC Nucleated RBC % (auto) PT 12.1 INR 1.1 D-Dimer High Sensitivty 611 VBG pH VBG pCO2 VBG pO2 VBG HCO3 VBG O2 Saturation VBG Base Excess Anion Gap Estim Creat Clear Calc Estimated GFR Random Glucose Calcium Magnesium Total Bilirubin AST ALT Alkaline Phosphatase Troponin I High Sens B-Natriuretic Peptide Total Protein Albumin COVID-19 (MIR) Negative COVID-Virgance Clin Com See Note Influenza Type A (SUSAN) Negative Influenza Type B (SUSAN) Negative Influenza A & B Note See Note 12/26/21 04:52 MCV MCH MCHC RDW Plt Count MPV Immature Gran % (Auto) Neut % (Auto) Lymph % (Auto) [place] % (Auto) Eos % (Auto) Baso % (Auto) Lymph # (Auto) [place] # (Auto) Eos # (Auto) Baso # (Auto) Abs Immat Gran (auto) Absolute Neuts (auto) Absolute Nucleated RBC Nucleated RBC % (auto) PT INR D-Dimer High Sensitivty VBG pH 7.38 VBG pCO2 53 VBG pO2 50 VBG HCO3 32 H VBG O2 Saturation 78.0 VBG Base Excess 5.8 Anion Gap Estim Creat Clear Calc Estimated GFR Random Glucose Calcium Magnesium Total Bilirubin AST ALT Alkaline Phosphatase Troponin I High Sens B-Natriuretic Peptide Total Protein Albumin COVID-19 (MIR) COVID-19 Clin Com Influenza Type A (SUSAN) Influenza Type B (SUSAN) Influenza A & B Note Imaging Radiologist's Impressions: Impressions Chest X-Ray 12/26/21 05:14 IMPRESSION: No acute pulmonary finding. Assessment and Plan (1) New onset a-fib: Status: Acute Plan This is a 66 yo M who presented to [facility] on 12/23/21 seeking placement to rehab facility. He was awaiting placement in the ED but on the morning of 12/26/21, he was noted to be hypoxic and tachycardic. He is found to be in new onset A. Fib. 1. New onset A. Fib with variable rates Rates ranging from 80-120; responded to PO metoprolol 25mg -- with rates mostly in the 80s and 90s Will place under observation and monitor on tele. Hold his baseline HTN meds and instead use metoprolol 25mg q6 hours 2d Echo and cardiology consult In regards to OAC (CHADSVAC of at least 2) -- deferred right now due to his daily falls. D/w his significant other -- who is also in agreement of no OAC for the time being 2. Elevated BNP patient had a brief period of hypoxia, but that has resolved (does not have acute resp. failure with hypxoia). Clinically he does not appear to be in CHF. will get 2d echo as above hold further diuretics 3. HTN hold baseline BP meds to make room for metoprolol 4. Parkinson's disease continue baseline meds 5. Frequent falls per reported history, these are mechanical in nature will need eventual PT consult for placement Full Code DVT pptx -- lovenox He reports he does not have a formal HCP, but would nominate his significant other Meena Oquendo @ [phone]. Quality Stroke Does the patient have a stroke diagnosis?: No VTE Prior VTE?: No VTE Risk Level:: Medical - moderate - high VTE Device Contraindication: Treatment Not Indicated VTE Drug Contraindication: Treatment Not Indicated
[2021-12-26] MEDS: Metoprolol Tartrate 25 MG TABLET PO ×3 (09:07→20:15)
[2021-12-26] MEDS: Enoxaparin Sodium 40 MG/0.4 ML SYRINGE SUBCUT (13:35)
--- NOTE | 2021-12-26 13:37 | PC.NURSE ---
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
--- NOTE | 2021-12-26 13:44 | PC.NURSE ---
called pharmacy for missing med, they will bring it up when they are able
--- NOTE | 2021-12-26 14:58 | PC.NURSE ---
bedside US being performed
--- NOTE | 2021-12-26 14:58 | PC.NURSE ---
called pharmacy for missing med again
--- NOTE | 2021-12-26 15:50 | PC.NURSE ---
patient awake/alert to his baseline, condom cath in place, provider stated he does NOT want a barton cath inserted as it was ordered by the ed provider prior to his arrival to overflow. cardiac care nurse intact, pharmacy brought patients med to the floor but pt currently unable to take as he is having a bedside procedure performed at this time. call lee within reach, will continue to monitor.
--- NOTE | 2021-12-26 16:36 | PC.NURSE ---
patient medicated per order
[2021-12-26] MEDS: 0.9 % Sodium Chloride Flush 3 ML SYRINGE IVFLUSH ×2 (16:40→21:47)
--- NOTE | 2021-12-26 18:43 | MHC.CM.PN ---
HCP completed by RN. Copies given. HCP Meena Handley ([phone]). Uploaded into [facility] [employer] and [facility] [employer] [place].
[2021-12-26] MEDS: rOPINIRole HCL 0.25 MG TABLET PO (20:15)
[2021-12-26] MEDS: Gabapentin 300 MG CAPSULE PO (20:15)
[2021-12-27] VITALS (7 sets, daily range): BP systolic 127–146; BP diastolic 55–75; PULSE 71–98; RESP 14–20; TEMP 36.4–36.8; O2SAT 94–97
--- NOTE | 2021-12-27 02:37 | PC.NURSE ---
Patient confused / redirectable. Vitals stable. Patient high fall risk - telesitter at bedside. Patient transferred to [facility] for admission / bed assignment.
[2021-12-27] MEDS: Metoprolol Tartrate 25 MG TABLET PO ×2 (03:08→08:49)
--- NOTE | 2021-12-27 04:49 | PC.NURSE ---
Upon bed transfer from ED overflow to [facility], patient repeatedly attempted to punch and kick staff. Security called to assist with transfer. Patient A&Ox2 up to the floor. Refusing to wear clinical research monitor. Transfer with unsteady gait to bed with assist of 2 staff members. Pt attempting to get OOB multiple times after high fall risk education and interventions in place. Patient observer in place.
[2021-12-27] MEDS: Carbidopa/Levodopa 25/100 TABLET 1 TAB PO ×2 (06:39→12:02)
[2021-12-27 06:54] LABS: Hematocrit 37.9 % (42.0-52.0); Hemoglobin 12.3 g/dl (14.0-18.0); Mean Corpuscular HGB Conc 32.5 g/dl (31.0-36.0); Mean Corpuscular Hemoglobin 29.9 pg (27.0-33.0); Platelet Count 435 X10*3/uL (160-400); Red Blood Count 4.12 X10*6/uL (4.60-5.80); Red Cell Distribution Width 12.5 % (11.0-16.0)
[2021-12-27 06:58] LABS: Anion Gap 11 (12-20); Blood Urea Nitrogen 14 mg/dL (9-16); Calcium 8.9 mg/dL (8.4-10.2); Carbon Dioxide 27 mmol/L (22-29); Chloride 103 mmol/L (96-108); Creatinine Clr Calc Pharmacy 110.6; Estimated Glomerular Filt Rate > 60; Glucose Random 107 mg/dL (60-115); Sodium 137 mmol/L (135-145)
[2021-12-27] MEDS: Ascorbic Acid 500 MG TABLET 1000 MG PO (08:49)
[2021-12-27] MEDS: 0.9 % Sodium Chloride Flush 3 ML SYRINGE IVFLUSH ×3 (08:49→20:40)
[2021-12-27] MEDS: Gabapentin 100 MG CAPSULE 200 MG PO (08:49)
--- NOTE | 2021-12-27 09:25 | HO.PM.IMPN ---
Subjective Subjective Date of Service: 12/27/21 Interval History: afib new, has back pain ch ronic Review of Systems Patient denies any chest pain or shortness of breath abdominal pain or palpitations. Says the back pain chronic Physical Exam Vital Signs: Vital Signs: Last Vital Signs Temp 97.5 F 12/27/21 07:25 Pulse 98 12/27/21 07:25 Resp 20 12/27/21 07:25 BP 127/72 12/27/21 07:25 Pulse Ox 94 12/27/21 07:25 BMI result Body Mass Index 23.7 Constitutional - Awake and Alert, anxious. Cardiovascular - S1S2, IRR with 80's. Respiratory - Normal lung expansion, Normal respiratory effort, no rales or wheezing Gastrointestinal -? NT / ND; +BS; No rebound or guarding - No CVA tenderness Extremities - no calf tenderness bilaterally, no swelling Musculoskeletal - Normal inspection, normal ROM Skin - Warm/Dry; multiple areas of bruising in various stages of healing Neurological -? AAOx2; able to obey basic commands Objective Data Active Medications Acetaminophen (Acetaminophen 325 Mg Tablet) 650 mg PO Q6H PRN PRN Reason: Pain, Mild (Pain Scale 1-3) Amlodipine Besylate (Amlodipine Besylate 2.5 Mg Tablet) 7.5 mg PO DAILY [facility]; Protocol Last Admin: 12/25/21 07:21 Dose: 7.5 mg Documented by: GENI Ascorbic Acid (Ascorbic Acid 500 Mg Tablet) 1,000 mg PO DAILY [facility] Last Admin: 12/27/21 08:49 Dose: 1,000 mg Documented by: BEA Carbidopa/Levodopa (Carbidopa/Levodopa 25/100 Tablet) 1 tab PO BID@0700,1300 [facility] Last Admin: 12/27/21 06:39 Dose: 1 tab Documented by: ELVIN Enoxaparin Sodium (Enoxaparin Sodium 40 Mg/0.4 Ml Syringe) 40 mg SUBCUT Q24H [facility] Last Admin: 12/26/21 13:35 Dose: 40 mg Documented by: ROMY Gabapentin (Gabapentin 100 Mg Capsule) 200 mg PO DAILY [facility] Last Admin: 12/27/21 08:49 Dose: 200 mg Documented by: BEA Gabapentin (Gabapentin 300 Mg Capsule) 300 mg PO BEDTIME [facility] Last Admin: 12/26/21 20:15 Dose: 300 mg Documented by: KELSEA Lidocaine (Lidocaine 4 % Patch Adh..Patch) 1 patch TRANSDERMA DAILY [facility]; Protocol Lisinopril (Lisinopril 10 Mg Tablet) 10 mg PO DAILY [facility]; Protocol Last Admin: 12/25/21 07:21 Dose: 10 mg Documented by: GENI Melatonin (Melatonin 3 Mg Tablet) 3 mg PO BEDTIME PRN PRN Reason: Sleep Metoprolol Tartrate (Metoprolol Tartrate 25 Mg Tablet) 25 mg PO Q6H [facility]; Protocol Last Admin: 12/27/21 08:49 Dose: 25 mg Documented by: BEA Ondansetron HCl (Ondansetron Hcl 4 Mg/2 Ml Vial) 4 mg IVPUSH Q8H PRN PRN Reason: Nausea and Vomiting Pharmacy Consult (Consult Rx Perform Med Rec) 1 each MISCELLANE ONCE PRN PRN Reason: Consult order Ropinirole HCl (Ropinirole Hcl 0.25 Mg Tablet) 0.25 mg PO BEDTIME [facility] Last Admin: 12/26/21 20:15 Dose: 0.25 mg Documented by: KELSEA Sodium Chloride (0.9 % Sodium Chloride Flush 3 Ml Syringe) 3 ml IVFLUSH QSHIFT [facility] Last Admin: 12/27/21 08:49 Dose: 3 ml Documented by: BEA Labs CBC & Chem 7: 12/27/21 06:17 12/27/21 06:17 Labs: Laboratory Results - last 24 hr 12/27/21 12/27/21 06:17 06:17 MCV 92.0 MCH 29.9 MCHC 32.5 RDW 12.5 Plt Count 435 H MPV 9.0 L Absolute Nucleated RBC 0.000 Nucleated RBC % (auto) 0.0 Anion Gap 11 L Estim Creat Clear Calc 110.6 Estimated GFR > 60 Random Glucose 107 Calcium 8.9 Assessment and Plan (1) Cardiomyopathy: Status: Acute (2) Atrial fibrillation with rapid ventricular response: Status: Acute Plan 66 yo M who [place] [facility] [place] seeking placement to rehab facility. He was awaiting placement in the ED but on the morning of 12/26/21, he was noted to be hypoxic and tachycardic. He is found to be in new onset A. Fib. 1. New onset A. Fib with variable rates: intially started on po metorpolol 25 mg po q6hr- seen by cardio:switched toprol 50 mg. 2d Echo : ?The left ventricular systolic function is moderately decreased. The visually estimated ejection fraction is between 35-40%.? ? ? - The basal inferior segment is akinetic.? - No obvious valvular pathology seen on this study.? In regards to OAC (CHADSVAC of at least 2) -- deferred right now due to his daily falls. D/w his significant other -- who is also in agreement of no OAC for the time being, she wants to decide once patient goes to rehab. 2. Elevated BNP,possible cardiomyopathy. patient had a brief period of hypoxia, but that has resolved (does not have acute resp. failure with hypxoia). Clinically he does not appear to be in CHF. 2d echo as above hold further diuretics 3. HTN hold baseline BP meds to make room for metoprolol 4. Parkinson's disease continue baseline meds. 5. Frequent falls per reported history, these are mechanical in nature PT consult- recomended rehab. DVT pptx -- [employer] Quality Stroke Does the patient have a stroke diagnosis?: No VTE Prior VTE?: No VTE Risk Level:: Medical - moderate - high VTE Device Contraindication: Treatment Not Indicated VTE Drug Contraindication: Treatment Not Indicated
--- NOTE | 2021-12-27 09:59 | P.CONCA_ITS ---
History of Present Illness History of Present Illness Date of Service: 12/27/21 Chief complaint: Back pain Narrative: This is a cardiology consultation regarding atrial fibrillation. Patient has history of Parkinson's disease, hypertension multiple back surgeries. He has been seen recently in the emergency room for back and hip pain. However it seems that while awaiting placement from the ER in 1 of the rehab facilities, he was found to be tachycardic. He is also mildly hypoxic. Then he was found to be in atrial fibrillation rapid rate per H&P. He was given a dose of IV Lasix and admission was requested. Patient himself does not have any specific cardiac complaints. No anginal-type symptoms or shortness of breath or in fact any cardiac symptoms otherwise per patient. He denies any coronary artery disease myocardial infarction or cardiomyopathy or congestive heart failure. Review of Systems Review of Systems: Yes all other systems are reviewed and are negative Constitutional: Constitutional: Reports as per HPI Eyes: Eyes: Reports as per HPI ENT: Reports as per HPI Cardiovascular: Cardiovascular: Reports as per HPI, Denies acrocyanosis, Denies cool extremities, Denies chest pain, Denies leg edema, Denies lightheadedness, Denies palpitations and Denies dyspnea Respiratory: Respiratory: Reports as per HPI, Reports no additional respirat ory complaints and Denies dyspnea Gastrointestinal: Gastrointestinal: Reports as per HPI and Reports no additional gastrointestinal complaints Genitourinary: Genitourinary: Reports no additional male genitourinary complaints and Reports as per HPI Musculoskeletal: Musculoskeletal: Reports no additional musculoskeletal complaints and Reports as per HPI Integumentary/Breasts: Skin/Breast: Reports system reviewed and no additional complaints, except as docu Neurologic: Reports system reviewed and no additional complaints, except as documented and Reports as per HPI Psychiatric: Psychiatric: Reports no additional psychiatric complaints and Reports as per HPI Endocrine: Endocrine: Reports no additional endocrine complaints, Reports as per HPI and Denies palpitations Hematologic/Lymphatic: Hematologic/Lymphatic: Reports no additional hematologic/lymphatic complaints and Reports as per HPI Allergic/Immunologic: Allergic/Immunologic: Reports no additional allergic/immunologic complaints and Reports as per HPI [facility] Past Medical History Medical History (Updated 12/27/21 @ 10:03 by Bharathi Lawson MD) HTN (hypertension) Parkinson disease Family History Family History (Updated 12/27/21 @ 10:01 by Bharathi Lawson MD) Mother CAD (coronary artery disease) Surgical History Surgical History H/O spinal fusion Social History Social History Household Members: Spouse Housing: Homeless Unable to assess alcohol history related to: Unknown Alcohol intake: former Patient Tobacco Use Status: Former Tobacco user Substance Use Type: Marijuana Meds Allergies Allergy/AdvReac Type Severity Reaction Status Date / Time No Known Allergies Allergy Verified 12/16/21 02:35 Active Medications: Current Medications Acetaminophen (Acetaminophen 325 Mg Tablet) 650 mg PO Q6H PRN PRN Reason: Pain, Mild (Pain Scale 1-3) Amlodipine Besylate (Amlodipine Besylate 2.5 Mg Tablet) 7.5 mg PO DAILY [facility]; Protocol Last Admin: 12/25/21 07:21 Dose: 7.5 mg Documented by: Ascorbic Acid (Ascorbic Acid 500 Mg Tablet) 1,000 mg PO DAILY [facility] Last Admin: 12/27/21 08:49 Dose: 1,000 mg Documented by: Carbidopa/Levodopa (Carbidopa/Levodopa 25/100 Tablet) 1 tab PO BID@0700,1300 [facility] Last Admin: 12/27/21 06:39 Dose: 1 tab Documented by: Enoxaparin Sodium (Enoxaparin Sodium 40 Mg/0.4 Ml Syringe) 40 mg SUBCUT Q24H [facility] Last Admin: 12/26/21 13:35 Dose: 40 mg Documented by: Gabapentin (Gabapentin 100 Mg Capsule) 200 mg PO DAILY [facility] Last Admin: 12/27/21 08:49 Dose: 200 mg Documented by: Gabapentin (Gabapentin 300 Mg Capsule) 300 mg PO BEDTIME [facility] Last Admin: 12/26/21 20:15 Dose: 300 mg Documented by: Lidocaine (Lidocaine 4 % Patch Adh..Patch) 1 patch TRANSDERMA DAILY [facility]; Protocol Lisinopril (Lisinopril 10 Mg Tablet) 10 mg PO DAILY [facility]; Protocol Last Admin: 12/25/21 07:21 Dose: 10 mg Documented by: Melatonin (Melatonin 3 Mg Tablet) 3 mg PO BEDTIME PRN PRN Reason: Sleep Metoprolol Tartrate (Metoprolol Tartrate 25 Mg Tablet) 25 mg PO Q6H [facility]; Protocol Last Admin: 12/27/21 08:49 Dose: 25 mg Documented by: Ondansetron HCl (Ondansetron Hcl 4 Mg/2 Ml Vial) 4 mg IVPUSH Q8H PRN PRN Reason: Nausea and Vomiting Pharmacy Consult (Consult Rx Perform Med Rec) 1 each MISCELLANE ONCE PRN PRN Reason: Consult order Ropinirole HCl (Ropinirole Hcl 0.25 Mg Tablet) 0.25 mg PO BEDTIME [facility] Last Admin: 12/26/21 20:15 Dose: 0.25 mg Documented by: Sodium Chloride (0.9 % Sodium Chloride Flush 3 Ml Syringe) 3 ml IVFLUSH QSHIFT [facility] Last Admin: 12/27/21 08:49 Dose: 3 ml Documented by: Home Medications Medication Instructions Recorded Confirmed Last Taken Type amlodipine 2.5 mg tablet 7.5 mg PO DAILY 12/23/21 12/23/21 12/23/21 History ascorbic acid (vitamin C) 1,000 mg 1,000 mg PO DAILY 12/23/21 12/23/21 Unknown History tablet carbidopa 25 mg-levodopa 100 mg 1 tab PO BID@0700,1300 12/23/21 12/23/21 12/23/21 History tablet gabapentin 100 mg capsule 200 mg PO DAILY 12/23/21 12/23/21 12/23/21 History gabapentin 300 mg capsule 300 mg PO BEDTIME 12/23/21 12/23/21 12/22/21 History lisinopril 10 mg tablet 10 mg PO DAILY 12/23/21 12/23/21 12/23/21 History melatonin 3 mg tablet 3 mg PO BEDTIME PRN 12/23/21 12/23/21 Unknown History ropinirole 0.25 mg tablet 0.25 mg PO BEDTIME 12/23/21 12/23/21 12/22/21 History Physical Exam Vital Signs: Vital Signs: Last Vital Signs Temp 97.5 F 12/27/21 07:25 Pulse 98 12/27/21 09:35 Resp 20 12/27/21 07:25 BP 127/72 12/27/21 09:35 Pulse Ox 94 12/27/21 09:35 BMI result Body Mass Index 23.7 Const: General: comfortable and no acute distress HEENT: Other: Unremarkable Head: Yes normal to inspection Neck: Neck: Yes normal visual inspection Chest: Chest palpation & inspection: normal inspection of the chest Resp: Auscultation: clear to auscultation bilaterally Cardio: Palpation: normal PMI Heart sounds: S1 normal heart sound present, S2 normal heart sound present, no gallops, no murmurs and no rubs GI: Palpation (GI): Soft to palpation Back/Spine/Pelvis: Other: unremarkable Skin: General skin exam: no rashes or lesions noted Neuro: General: no focal motor deficits Extrem: General: Yes normal to inspection Psych: Mental Status: mental status grossly normal Objective Labs and Meds Result diagrams: 12/27/21 06:17 12/27/21 06:17 Lab results: Laboratory Results - last 24 hr 12/27/21 12/27/21 06:17 06:17 WBC 7.0 RBC 4.12 L Hgb 12.3 L Hct 37.9 L MCV 92.0 MCH 29.9 MCHC 32.5 RDW 12.5 Plt Count 435 H MPV 9.0 L Absolute Nucleated RBC 0.000 Nucleated RBC % (auto) 0.0 Sodium 137 Potassium 4.0 Chloride 103 Carbon Dioxide 27 Anion Gap 11 L BUN 14 Creatinine 0.69 Estim Creat Clear Calc 110.6 Estimated GFR > 60 Random Glucose 107 Calcium 8.9 ECG Interpretation: Admission EKG shows sinus rhythm in the 1st part of EKG with 1 PVC. In the 2nd part, there are frequent PACs. He was not on telemetry initially as he was apparently refusing but when we put it on, seemed like atrial fibrillation with rapid rate in the 120s. Assessment and Plan (1) Atrial fibrillation with rapid ventricular response: Status: Acute (2) Cardiomyopathy: Status: Acute Plan High sensitivity troponin within range. Cardiac BNP 106. Echocardiogram with LVEF 35-40% and basal inferior akinesis but otherwise unremarkable. Chest x-ray is unremarkable. Overall, he has got atrial fibrillation rapid rate and cardiomyopathy. However, he does not have any clear symptoms but may not be fully oriented either. Need to monitor on telemetry. Can start beta-blockers. We can hold amlodipine instead. Continue lisinopril. Start anticoagulation. Will follow up with you. Procedures Date of Service Date of Service: 12/27/21
[2021-12-27] MEDS: Lidocaine 4 % Patch ADH..PATCH 1 PATCH TRANSDERMA (11:16)
[2021-12-27] MEDS: Enoxaparin Sodium 40 MG/0.4 ML SYRINGE SUBCUT (11:16)
[2021-12-27] MEDS: Metoprolol Succinate ER 50 MG TAB.ER.24H PO (12:02)
[2021-12-27] MEDS: Acetaminophen 325 MG TABLET 650 MG PO (14:27)
[2021-12-27] MEDS: traMADoL HCL 50 MG TABLET 25 MG PO (16:11)
[2021-12-27] MEDS: Gabapentin 300 MG CAPSULE PO (20:40)
[2021-12-27] MEDS: rOPINIRole HCL 0.25 MG TABLET PO (20:40)
[2021-12-27] MEDS: Melatonin 3 MG TABLET PO (20:40)
[2021-12-28 03:34] VITALS: BP 134/83; PULSE 83; RESP 20; TEMP 37.4; O2SAT 97
[2021-12-28] MEDS: Carbidopa/Levodopa 25/100 TABLET 1 TAB PO ×2 (06:46→13:38)
[2021-12-28 07:27] VITALS: BP 140/76; PULSE 70; RESP 18; TEMP 36.8; O2SAT 96
[2021-12-28] MEDS: 0.9 % Sodium Chloride Flush 3 ML SYRINGE IVFLUSH ×3 (08:49→20:37)
[2021-12-28] MEDS: Gabapentin 100 MG CAPSULE 200 MG PO (08:49)
[2021-12-28] MEDS: Lidocaine 4 % Patch ADH..PATCH 1 PATCH TRANSDERMA (08:49)
[2021-12-28] MEDS: Metoprolol Succinate ER 50 MG TAB.ER.24H PO ×2 (08:50→13:02)
[2021-12-28] MEDS: Ascorbic Acid 500 MG TABLET 1000 MG PO (08:50)
--- NOTE | 2021-12-28 09:07 | P.PNIM_ITS ---
Subjective Subjective Date of Service: 12/28/21 Interval History: afib new, has back pain ch ronic Review of Systems stillrunning tachy back pain seems improivng Physical Exam Vital Signs: Vital Signs: Last Vital Signs Temp 98.2 F 12/28/21 07:27 Pulse 70 12/28/21 07:27 Resp 18 12/28/21 07:27 BP 140/76 H 12/28/21 07:27 Pulse Ox 96 12/28/21 07:27 BMI result Body Mass Index 23.7 ?Constitutional - Awake and Alert, less anxious. Cardiovascular - S1S2, IRR(tachy) Respiratory - Normal lung expansion, Normal respiratory effort, no rales or wheezing Gastrointestinal -? NT / ND; +BS; No rebound or guarding Musculoskeletal - Normal inspection, normal ROM Skin - Warm/Dry; multiple areas of bruising in various stages of healing Neurological -? AOx2; follows simple commands Objective Data Active Medications Acetaminophen (Acetaminophen 325 Mg Tablet) 975 mg PO TID PRN PRN Reason: Pain, Mild (Pain Scale 1-3) Ascorbic Acid (Ascorbic Acid 500 Mg Tablet) 1,000 mg PO DAILY [facility] Last Admin: 12/28/21 08:50 Dose: 1,000 mg Documented by: SABINE Carbidopa/Levodopa (Carbidopa/Levodopa 25/100 Tablet) 1 tab PO BID@0700,1300 [facility] Last Admin: 12/28/21 06:46 Dose: 1 tab Documented by: ELVIN Enoxaparin Sodium (Enoxaparin Sodium 40 Mg/0.4 Ml Syringe) 40 mg SUBCUT Q24H [facility] Last Admin: 12/27/21 11:16 Dose: 40 mg Documented by: BEA Gabapentin (Gabapentin 100 Mg Capsule) 200 mg PO DAILY [facility] Last Admin: 12/28/21 08:49 Dose: 200 mg Documented by: SABINE Gabapentin (Gabapentin 300 Mg Capsule) 300 mg PO BEDTIME [facility] Last Admin: 12/27/21 20:40 Dose: 300 mg Documented by: MITCHEL Lidocaine (Lidocaine 4 % Patch Adh..Patch) 1 patch TRANSDERMA DAILY [facility]; Protocol Last Admin: 12/28/21 08:49 Dose: 1 patch Documented by: SABINE Lisinopril (Lisinopril 10 Mg Tablet) 10 mg PO DAILY [facility]; Protocol Last Admin: 12/25/21 07:21 Dose: 10 mg Documented by: GENI Melatonin (Melatonin 3 Mg Tablet) 3 mg PO BEDTIME PRN PRN Reason: Sleep Last Admin: 12/27/21 20:40 Dose: 3 mg Documented by: MITCHEL Metoprolol Succinate (Metoprolol Succinate Er 50 Mg Tab.Er.24h) 50 mg PO DAILY [facility]; Protocol Last Admin: 12/28/21 08:50 Dose: 50 mg Documented by: SABINE Ondansetron HCl (Ondansetron Hcl 4 Mg/2 Ml Vial) 4 mg IVPUSH Q8H PRN PRN Reason: Nausea and Vomiting Pharmacy Consult (Consult Rx Perform Med Rec) 1 each MISCELLANE ONCE PRN PRN Reason: Consult order Ropinirole HCl (Ropinirole Hcl 0.25 Mg Tablet) 0.25 mg PO BEDTIME [facility] Last Admin: 12/27/21 20:40 Dose: 0.25 mg Documented by: MITCHEL Sodium Chloride (0.9 % Sodium Chloride Flush 3 Ml Syringe) 3 ml IVFLUSH QSHIFT [facility] Last Admin: 12/28/21 08:49 Dose: 3 ml Documented by: SABINE Labs CBC & Chem 7: 12/27/21 06:17 12/27/21 06:17 Assessment and Plan (1) Atrial fibrillation with rapid ventricular response: Status: Acute Plan 66 yo M who presented to [facility] [place] on 12/23/21 seeking placement to rehab facility. He was awaiting placement in the ED but on the morning of 12/26/21, he was noted to be hypoxic and tachycardic. He is found to be in new onset A. Fib. 1. New onset A. Fib with variable rates: intially started on po metorpolol 25 mg po q6hr- seen by cardio:still tachy adjusted ? toprol 100 mg. 2d Echo : ?The left ventricular systolic function is moderately decreased. The visually estimated ejection fraction is between 35-40%.? ? ? - The basal inferior segment is akinetic.? - No obvious valvular pathology seen on this study.? In regards to OAC (CHADSVAC of at least 2) -- deferred right now due to his daily falls. ?D/w his significant other -- who is also in agreement of no OAC for the time being, she wants to decide once patient goes to rehab. 2. Elevated BNP,possible cardiomyopathy. patient had a brief period of hypoxia, but that has resolved (does not have acute resp. failure with hypxoia). Clinically he does not appear to be in CHF. ?2d echo as above hold further diuretics 3. HTN hold baseline BP meds to make room for metoprolol 4. Parkinson's disease continue baseline meds. 5. Frequent falls per reported history, these are mechanical in nature ?PT consult- recomended rehab. DVT pptx -- [facility] need for inpatient: afib with rvr Quality Stroke Does the patient have a stroke diagnosis?: No VTE Prior VTE?: No VTE Risk Level:: Medical - moderate - high VTE Device Contraindication: Treatment Not Indicated VTE Drug Contraindication: Treatment Not Indicated
[2021-12-28 09:09] VITALS: BP 140/76; PULSE 70; O2SAT 96
--- NOTE | 2021-12-28 09:38 | MHC.CM.PN ---
pt will be dcd today at 1130 to [facility] pt aware and will communictae with family
--- NOTE | 2021-12-28 10:44 | P.PNCA_ITS ---
Subjective Subjective Date of Service: 12/28/21 Interval history: Patient is being followed for atrial fibrillation. He states that he is doing okay. No specific complaints like angina or shortness of breath or in fact anything cardiac related at all. Still there are issues with adding telemetry and according to tele receptionist secretary, he is not really keeping it on. Review of Systems Review of Systems Yes all other systems are reviewed and are negative Constitutional: Reports as per HPI Eyes: Reports as per HPI Reports as per HPI Cardiovascular: Reports as per HPI, Denies acrocyanosis, Denies cool extremities, Denies chest pain, Denies leg edema, Denies lightheadedness, Denies palpitations and Denies dyspnea Respiratory: Reports as per HPI, Reports no additional respiratory complaints and Denies dyspnea Gastrointestinal: Reports as per HPI and Reports no additional gastrointestinal complaints Genitourinary: Reports no additional male genitourinary complaints and Reports a s per HPI Musculoskeletal: Reports no additional musculoskeletal complaints and Reports as per HPI Skin/Breast: Reports system reviewed and no additional complaints, except as docu Reports system reviewed and no additional complaints, except as documented and Reports as per HPI Psychiatric: Reports no additional psychiatric complaints and Reports as per HPI Endocrine: Reports no additional endocrine complaints, Reports as per HPI and Denies palpitations Hematologic/Lymphatic: Reports no additional hematologic/lymphatic complaints and Reports as per HPI Allergic/Immunologic: Reports no additional allergic/immunologic complaints and Reports as per HPI Physical Exam Vital Signs: Last Vital Signs Temp 98.2 F 12/28/21 07:27 Pulse 70 12/28/21 09:09 Resp 18 12/28/21 07:27 BP 140/76 H 12/28/21 09:09 Pulse Ox 96 12/28/21 09:09 BMI result Body Mass Index 23.7 Const General: comfortable and no acute distress HEENT Other: Unremarkable Head: Yes normal to inspection Neck Neck: Yes normal visual inspection Chest Chest palpation & inspection: normal inspection of the chest Resp Auscultation: clear to auscultation bilaterally Cardio Palpation: normal PMI Heart sounds: S1 normal heart sound present, S2 normal heart sound present, no gallops, no murmurs and no rubs GI Palpation (GI): Soft to palpation Back/Spine/Pelvis Other: unremarkable Skin General skin exam: no rashes or lesions noted Neuro General: no focal motor deficits Extrem General: Yes normal to inspection Psych Mental Status: mental status grossly normal Objective Labs and Meds Result diagrams: 12/27/21 06:17 12/27/21 06:17 Progress Note: A&P Assessment and plan (1) Atrial fibrillation with rapid ventricular response: Status: Acute (2) Cardiomyopathy: Status: Acute Plan Telemetry reviewed. Some areas look like atrial fibrillation rapid rate. Other areas appear to be like sinus with frequent PACs. He is probably having some combination of both. Clinically does not have any major symptoms however. On echocardiogram, diminished LVEF in 35-40% range and basal inferior akinesis. We will go up on the beta-jimmy dosing. Continue lisinopril. Per Dr. Jones, patient family prefer not to be anticoagulation as he falls daily. Seems reasonable. To be assessed ongoing basis. With regard to the cardiomyopathy itself, will need ischemic workup as an outpatient. Again to be decided based on what he can do and family wishes extra. Time Spent With Patient Time: Total time spent is greater than 50% in coordination of care (as documented) at patient's floor/unit and/or counseling patient: 35min. Progress Note: Quality Stroke Does the patient have a stroke diagnosis?: No Procedures Date of Service Date of Service: 12/28/21
[2021-12-28 10:58] VITALS: BP 133/64; PULSE 69; RESP 18; TEMP 36.5; O2SAT 94
[2021-12-28] MEDS: Enoxaparin Sodium 40 MG/0.4 ML SYRINGE SUBCUT (13:02)
--- NOTE | 2021-12-28 13:32 | MHC.CM.PN ---
dc cancelled pt is in afib
[2021-12-28 15:59] VITALS: BP 120/60; PULSE 74; RESP 18; TEMP 36.6; O2SAT 96
[2021-12-28] MEDS: Acetaminophen 325 MG TABLET 975 MG PO (17:02)
[2021-12-28 19:34] VITALS: BP 132/69; PULSE 68; RESP 18; TEMP 37.1; O2SAT 98
[2021-12-28] MEDS: Melatonin 3 MG TABLET PO (20:37)
[2021-12-28] MEDS: rOPINIRole HCL 0.25 MG TABLET PO (20:37)
[2021-12-28] MEDS: Gabapentin 300 MG CAPSULE PO (20:37)
[2021-12-29] VITALS: BP 135/60; PULSE 66; RESP 16; TEMP 36.2; O2SAT 95
--- NOTE | 2021-12-29 | ECG_ITS ---
Test Reason : ck rhythm Blood Pressure : / mmHG Vent. Rate : 064 BPM Atrial Rate : 064 BPM P-R Int : 224 ms QRS Dur : 106 ms QT Int : 410 ms P-R-T Axes : 090 006 052 degrees QTc Int : 422 ms Sinus rhythm with 1st degree A-V block Nonspecific ST abnormality Borderline ECG When compared with ECG of 26-DEC-2021 04:17, Rhythm change Referred By: Estrella Jones Electronically Signed By:AMANDA MAST
[2021-12-29 03:34] VITALS: BP 131/60; PULSE 67; RESP 16; TEMP 36.9; O2SAT 95
[2021-12-29] MEDS: Acetaminophen 325 MG TABLET 975 MG PO (04:55)
[2021-12-29] MEDS: Carbidopa/Levodopa 25/100 TABLET 1 TAB PO ×2 (04:59→12:34)
[2021-12-29 07:44] VITALS: BP 150/87; PULSE 64; RESP 20; TEMP 36.6; O2SAT 94
[2021-12-29] MEDS: Ascorbic Acid 500 MG TABLET 1000 MG PO (08:37)
[2021-12-29] MEDS: Metoprolol Succinate ER 100 MG TAB.ER.24H PO (08:37)
[2021-12-29] MEDS: Gabapentin 100 MG CAPSULE 200 MG PO (08:37)
[2021-12-29] MEDS: Lidocaine 4 % Patch ADH..PATCH 1 PATCH TRANSDERMA (08:38)
[2021-12-29] MEDS: 0.9 % Sodium Chloride Flush 3 ML SYRINGE IVFLUSH (08:38)
[2021-12-29 09:22] VITALS: BP 150/87; PULSE 64; O2SAT 94
[2021-12-29 11:26] VITALS: BP 130/70; PULSE 69; RESP 20; TEMP 37.1; O2SAT 93
--- NOTE | 2021-12-29 11:27 | P.DS_ITS ---
DS: Providers Provider Date of Service: 12/29/21 Date of admission: 12/27/21 13:23 Primary care physician: Unknown Physician Consults: 12/26/21 10:03 Consult to Cardiology Routine Consulting Provider: Bharathi Lawson Reason for consultation: new onset a. fib DS: Diagnosis Discharge Diagnosis (1) Atrial fibrillation with rapid ventricular response: Status: Acute DS: Summary Hospital Course Hospital Course: 66 year old male with a PMH of Parksinson disese (reports diagnosed in 2020), HTN, multiple prior back surgeries with last one in Jul 2021 for Spinal fusion who [place] [facility] [place] with complaints of hip and back pain. He presented seeking placement to a rehab facility. The patient underwent multiple imaging modalities with no acute findings. (See EMR for full reports). Multiple rehab facilities were contacted and while awating placement, the patient was noted to be tachycardic (on the morning of 12/26) and mildly hypoxic with sats as low at 89% on RA. Work up was ordered including EKG + cxr + blood work. He was found to be in A. Fib with RVR with a mildly elevated BNP. He was given a dose of IV lasix and admission was requested. The patient is seen and examined in the ED on 12/26/21 around 9AM. He reports no current complaints. He denies chest pain, sob, cough. He denies palpitations or lightheadedness. He denies nausea/vomiting/abdominal pain. He denies a known prior history of A. Fib. In regards to his medical history -- he rememebers his back surgeries + HTN + parkinson's. The reaminder of the history is obtained from his significant other Meena Oquendo @ [phone]. Meena reports that he did, indeed, have back surgery in Jul 2021. After this it appears he spent 1 month total between 2 rehab facilities. Since then, he was been doing fairly wel l. He ambulates with a walker, but she states that he has falls nearly every day. She reports these falls to be mechanical in nature. No reports of syncopal episodes. She denies any prior A. Fib. She reports that during his back surgery hospitalization -- she was told that he probably has had a stroke at some point in the past. She reports his memory is intact on most day, but does have periods where he has trouble recalling things. The patients HR during my exam was in the 110-120s. He was saturating in the 90s on room air. He appears to be without any distress. hospital course: Patient was admitted for AFib with RVR-started on rate control medication-heart rate seems to be improving going to the rehab with metoprolol 100 mg daily. Discussed with his dean of chapel she wants to decide about anticoagulation in rehab after evaluating for of falls in rehab by PT. Echocardiogram-LVEF in 35-40% range and basal inferior akinesis, patient seen by Cardiology-thought to be have possible cardiomyopathy- recommended continue beta-jimmy and lisinopril. Cardiology may arrange outpatient workup. Above management discussed with the patient in detail length patient understand and in agreement with the above plan, time spent 50 minutes and 50% time spent on counseling. Significant findings: As above. Procedures performed: None. Treatment and response: As above. Complications: None. Time Spent with Patient Time attestation: Total time spent providing and/or coordinating discharge services: Discharge coordination time: Greater than 30 minutes Quality: Safe Use of Opioids Does Pt have an Active Cancer Diagnosis on the Problem List?: No Quality: Stroke Does the patient have a stroke diagnosis?: No Physical Exam Vital Signs: Vital Signs: Last Vital Signs Temp 97.8 F 12/29/21 07:44 Pulse 64 12/29/21 09:22 Resp 20 12/29/21 07:44 BP 150/87 H 12/29/21 09:22 Pulse Ox 94 12/29/21 09:22 BMI result Body Mass Index 23.7 ? ?Constitutional - Awake and Alert, less anxious. Cardiovascular - S1S2, RRR. Respiratory - Normal lung expansion, Normal respiratory effort, no rales or wheezing Gastrointestinal -? NT / ND; +BS; No rebound or guarding Musculoskeletal - Normal inspection, normal ROM Skin - Warm/Dry; multiple areas of bruising in various stages of healing Neurological -? AOx2; follows simple? command DS: Data Additional Comments Additional comments: Estim Creat Clear Calc ? ?104.5 ? Estimated GFR ? ?> 60 ? Random Glucose ? ?104 ? Calcium ? ?9.0 ? Magnesium ? ?2.3 ? Total Bilirubin ? ?0.9 ? AST ? ?19 ? ? ?89 XR/XR chest 1V IMPRESSION: No acute pulmonary finding. ? Discharge Plan Discharge Patient Disposition: Xfer SNF Discharge Diagnosis: afib with rvr Referrals: sally serrato [Other] - 1 Week Physician,Unknown J [Primary Care Provider] - 1 Week Discharge Medications: New metoprolol succinate 100 mg Tablet Extended Release 24 Hr 100 mg PO DAILY Qty: 30 0RF Protocol: Hold for SBP/HR < HOLD for SBP < : 90 HOLD for HR < : 60 Continued melatonin 3 mg Tablet 3 mg PO BEDTIME PRN (Reason: Sleep) 0RF lisinopril 10 mg Tablet 10 mg PO DAILY 0RF gabapentin 300 mg Capsule 300 mg PO BEDTIME 0RF gabapentin 100 mg Capsule 200 mg PO DAILY 0RF amlodipine 2.5 mg Tablet 7.5 mg PO DAILY 0RF carbidopa-levodopa 25-100 mg Tablet 1 tab PO BID@0700,1300 0RF ropinirole 0.25 mg Tablet 0.25 mg PO BEDTIME 0RF Rx Instructions: administer 1-3 hours before bedtime ascorbic acid (vitamin C) 1,000 mg Tablet 1,000 mg PO DAILY 0RF Discharge Orders: Discharge Order (Routine); Ordered 12/29/21 Ordered By: Estrella Jones Diet: advance to usual diet Activity on Discharge: As tolerated Stand Alone Forms: Patient Portal Discharge page Print Language: Irish Care Plan Goals: Patient was admitted for AFib with RVR-started on rate control medication-heart rate seems to be improving going to the rehab with metoprolol 100 mg daily. Discussed with his dean of chapel she wants to decide about anticoagulation in rehab after evaluating for of falls in rehab by PT. Echocardiogram-LVEF in 35-40% range and basal inferior akinesis, patient seen by Cardiology-thought to be have possible cardiomyopathy- recommended continue beta-jimmy and lisinopril. Cardiology will arrange outpatient workup if needed. Health Concerns: As above. Plan of Treatment: As above. Assessment: As above.
--- NOTE | 2021-12-29 11:57 | P.PNCA_ITS ---
Subjective Subjective Date of Service: 12/29/21 Interval history: Patient himself denies any specific complaints. He states he is doing okay. No angina or palpitations or in fact any cardiac symptoms at all. Review of Systems Review of Systems Yes all other systems are reviewed and are negative Constitutional: Reports as per HPI Eyes: Reports as per HPI Reports as per HPI Cardiovascular: Reports as per HPI, Denies acrocyanosis, Denies cool extremit ies, Denies chest pain, Denies leg edema, Denies lightheadedness, Denies palpitations and Denies dyspnea Respiratory: Reports as per HPI, Reports no additional respiratory complaints and Denies dyspnea Gastrointestinal: Reports as per HPI and Reports no additional gastrointestinal complaints Genitourinary: Reports no additional male genitourinary complaints and Reports as per HPI Musculoskeletal: Reports no additional musculoskeletal complaints and Reports as per HPI Skin/Breast: Reports system reviewed and no additional complaints, except as docu Reports system reviewed and no additional complaints, except as documented and Reports as per HPI Psychiatric: Reports no additional psychiatric complaints and Reports as per HPI Endocrine: Reports no additional endocrine complaints, Reports as per HPI and Denies palpitations Hematologic/Lymphatic: Reports no additional hematologic/lymphatic complaints and Reports as per HPI Allergic/Immunologic: Reports no additional allergic/immunologic complaints and Reports as per HPI Physical Exam Vital Signs: Last Vital Signs Temp 98.8 F 12/29/21 11:26 Pulse 69 12/29/21 11:26 Resp 20 12/29/21 11:26 BP 130/70 12/29/21 11:26 Pulse Ox 93 12/29/21 11:26 BMI result Body Mass Index 23.7 Const General: comfortable and no acute distress Orientation/consciousness: patient oriented x3 HEENT Other: Unremarkable Head: Yes normal to inspection Neck Neck: Yes normal visual inspection Chest Chest palpation & inspection: normal inspection of the chest Resp Auscultation: clear to auscultation bilaterally Cardio Palpation: normal PMI Heart sounds: S1 normal heart sound present, S2 normal heart sound present, no gallops, no murmurs and no rubs GI Palpation (GI): Soft to palpation Back/Spine/Pelvis Other: unremarkable Skin General skin exam: no rashes or lesions noted Neuro General: patient oriented x3 Extrem General: Yes normal to inspection Psych Mental Status: mental status grossly normal Objective Labs and Meds Result diagrams: 12/27/21 06:17 12/27/21 06:17 Progress Note: A&P Assessment and plan (1) Atrial fibrillation with rapid ventricular response: Status: Acute (2) Cardiomyopathy: Status: Acute Plan Telemetry reviewed. He seems to be in sinus rhythm in the 60s. On echocardiogram, diminished LVEF in 35-40% range and basal inferior akinesis. Continue higher dose of beta-blockers as advised study. Continue lisinopril. Per Dr. Jones, patient family prefer not to be anticoagulation as he falls daily. Seems reasonable. To be assessed on a ongoing basis. With regard to the cardiomyopathy itself, will need ischemic workup as an outpatient. Depends on his as well as family preference. Any case, we will call him for outpatient appointment. Otherwise, discharge planning. Discussed with Dr. Jones. Time Spent With Patient Time: Total time spent is greater than 50% in coordination of care (as documented) at patient's floor/unit and/or counseling patient: 28min. Progress Note: Quality Stroke Does the patient have a stroke diagnosis?: No Procedures Date of Service Date of Service: 12/29/21
[2021-12-29] MEDS: Enoxaparin Sodium 40 MG/0.4 ML SYRINGE SUBCUT (12:33)
--- NOTE | 2021-12-29 13:02 | MHC.CM.PN ---
Patient has been medically cleared for dc to SNF/STR today. Patient will dc to [facility] today at 2 PM, via [facility]. Last IMM addressed yesterday.Patient and S.O./Meena @ [phone] are aware of and in agreement with the dc plan.
== END 2021-12-29 14:30 | disposition skilled nursing facility (03) | DRG 310 ==
LOC: HO.ED 12-26 06:40 → HO.EDOVER 12-26 08:50 → HO.IMC 12-27 01:41
PROVIDERS: Physician Assistant Medical; Student in an Organized Health Care Education/Training Program; Admitting Provider Family Medicine; Emergency Provider Internal Medicine; PCP Physician Assistant; Visit Provider Internal Medicine
DX: I48.91 Unspecified atrial fibrillation (principal); R09.02 Hypoxemia; I10 Essential (primary) hypertension; M54.9 Dorsalgia, unspecified; M25.551 Pain in right hip; I42.9 Cardiomyopathy, unspecified; R29.6 Repeated falls; G20 Parkinson's disease; Z20.822 Contact with and (suspected) exposure to COVID-19; Z91.81 History of falling; Z98.1 Arthrodesis status; Z79.899 Other long term (current) drug therapy
CPT/HCPCS: 36415; 70450; 71045; 72100; 72125; 73030; 73502; 80048; 80053; 82803; 83735; 83880; 84484; 85025; 85027; 85379; 85610; 87502; 87635; 93005; 93306; 96374; 97110; 97116; 97162; 97165; 97535; 99219; 99285; J1650; J1940; Q9957

== ENCOUNTER 2022-01-01 01:53 | Emergency (ER) | payer MEDICARE, SELFPAY ==
--- NOTE | ~2022-01-01 | XR_ITS ---
EXAMINATION: XR CHEST CLINICAL INFORMATION: Falls COMPARISON: 12/26/2021 TECHNIQUE: Frontal view of the chest was obtained. FINDINGS: The lungs are well expanded. There is no focal consolidation, edema, or effusion. No pneumothorax. The cardiomediastinal silhouette is within normal limits. No acute osseous abnormality. Partially visualized cervical fusion hardware. XR/XR chest 1V IMPRESSION: Clear lungs. No displaced fractures are seen.
--- NOTE | ~2022-01-01 | CT_ITS ---
EXAMINATION: NONCONTRAST HEAD CT NONCONTRAST CERVICAL SPINE CT INDICATION INFORMATION: Fall. Head strike. COMPARISON: 12/24/2021 TECHNIQUE: Separate noncontrast CT examinations of the head and cervical spine were performed. Coronal and sagittal images were created for each examination at the technologist workstation. This CT examination was performed using dose optimization techniques as appropriate, variously including the following: *Automated exposure control *Adjustment of mA and/or kV according to patient size (this includes techniques or standardized protocols for targeted exams where dose is matched to indication/reason for exam; i.e. extremities or head) *Use of iterative reconstruction technique DLP: 1249 mGy-cm FINDINGS: Head: There is no evidence of acute intracranial hemorrhage or territorial infarction. No abnormal mass effect or midline shift is seen. Calvillo to white matter differentiation is well preserved. No extra-axial fluid collections are identified. No hydrocephalus. Proportional prominence of the ventricles and sulcal spaces is consistent with mild volume loss. Patchy periventricular and deep white matter hypoattenuation is consistent with mild small vessel ischemic changes. No acute osseous or soft tissue abnormality. Mucous retention cysts in both maxillary sinuses. The mastoid air cells and visualized portions of the paranasal sinuses are otherwise well aerated. Cervical spine: Intact anterior fusion hardware at C5-C6. There is anatomic alignment of the vertebral bodies and posterior elements. The atlantoaxial and atlantooccipital articulations are intact. Vertebral body heights are maintained. There is multilevel intervertebral disc space narrowing with endplate osteophyte formation and facet arthropathy. No evidence of acute fracture. No prevertebral soft tissue swelling. Mild centrilobular emphysema at the lung apices.. The thyroid gland is unremarkable. CT/CT cervical spine wo con IMPRESSION: 1. No acute intracranial finding. 2. No fracture or malalignment of the cervical spine.
[2022-01-01 02:08] VITALS: BP 111/65; PULSE 62; PULSE 79; RESP 16; TEMP 36.7; O2SAT 95; O2SAT 99; BMI 23.8
--- NOTE | 2022-01-01 02:30 | ECG_ITS ---
Test Reason : FALL Blood Pressure : / mmHG Vent. Rate : 076 BPM Atrial Rate : 076 BPM P-R Int : 202 ms QRS Dur : 098 ms QT Int : 390 ms P-R-T Axes : 089 004 071 degrees QTc Int : 438 ms Normal sinus rhythm Normal ECG When compared with ECG of 29-DEC-2021 10:23, No significant change was found Referred By: Shanique Clements Electronically Signed By:AMANDA MAST
[2022-01-01 03:09] LABS: Basophils Percent Auto 0.3 % (0-2); Eosinophils Absolute Auto 0.2 X10*3/uL (0.0-0.4); Eosinophils Percent Auto 2.3 % (0-4); Hematocrit 34.6 % (42.0-52.0); Hemoglobin 11.5 g/dl (14.0-18.0); Imm Gran Abs Auto 0.09 X10*3/uL (0.00-0.03); Lymphocytes Absolute Auto 1.3 X10*3/uL (1.2-4.9); MANUAL DIFF FLAG NO; Mean Corpuscular HGB Conc 33.2 g/dl (31.0-36.0); Mean Corpuscular Hemoglobin 30.4 pg (27.0-33.0); Mean Corpuscular Volume 91.5 fL (80.0-98.0); Mean Platelet Volume 8.7 fL (9.4-12.4); Monocytes Absolute Auto 1.3 X10*3/uL (0.1-1.2); Monocytes Percent Auto 14.6 % (2-11); Neutrophils Absolute Auto 5.8 x10*3/uL (2.0-8.3); Neutrophils Percent Auto 66.8 % (45-73); Platelet Count 437 X10*3/uL (160-400); Red Blood Count 3.78 X10*6/uL (4.60-5.80); Red Cell Distribution Width 13.1 % (11.0-16.0); White Blood Count 8.7 X10*3/uL (4.8-10.8)
[2022-01-01 03:11] VITALS: BP 126/67; PULSE 71; RESP 18; TEMP 36.8; O2SAT 99
[2022-01-01 03:15] LABS: INTERNATIONAL NORM RATIO 1.1 (0.9-1.1); Prothrombin Time 12.3 SEC (9.9-13.0)
[2022-01-01 03:17] LABS: Partial Thromboplastin Time 36.1 SEC (24.1-38.0)
[2022-01-01 03:30] LABS: Anion Gap 8 (12-20); Blood Urea Nitrogen 16 mg/dL (9-16); Calcium 8.5 mg/dL (8.4-10.2); Carbon Dioxide 31 mmol/L (22-29); Chloride 102 mmol/L (96-108); Creatinine Clr Calc Pharmacy 100.4; Estimated Glomerular Filt Rate > 60; Glucose Random 106 mg/dL (60-115); Magnesium 2.3 mg/dL (1.6-2.6); Potassium 4.1 mmol/L (3.3-5.1); Sodium 137 mmol/L (135-145)
[2022-01-01 03:47] LABS: Influenza A PCR NEGATIVE (Negative); Influenza B PCR NEGATIVE (Negative); Resp Syncy Virus RNA Qual PCR NEGATIVE (Negative); SARS COV2 PCR INHOUSE NEGATIVE (Negative)
--- NOTE | 2022-01-01 04:09 | ED_ITS ---
HPI - Fall General Chief Complaint: Fall Stated Complaint: FALL +HEAD STRIKE, HEAD LAC Time Seen by Provider: 01/01/22 02:29 Source: patient and EMS Mode of arrival: EMS Limitations: no limitations History of Present Illness HPI Narrative: Patient comes emergency room complaining of falls. Patient comes from [facility]. Patient is currently undergoing physical rehab. Patient known to have Parkinson's. Patient has had 4 falls in 4 days. Tonight, patient hit the back of his head with a sink. Patient did not lose consciousness and is not on blood thinners. Patient states that he slipped in the bathroom. Patient states that he does not want to go back to [facility] Related Data Home Medications Medication Instructions Recorded Confirmed amlodipine 2.5 mg tablet 7.5 mg PO DAILY 12/23/21 12/23/21 ascorbic acid (vitamin C) 1,000 mg 1,000 mg PO DAILY 12/23/21 12/23/21 tablet carbidopa 25 mg-levodopa 100 mg 1 tab PO BID@0700,1300 12/23/21 12/23/21 tablet gabapentin 100 mg capsule 200 mg PO DAILY 12/23/21 12/23/21 gabapentin 300 mg capsule 300 mg PO BEDTIME 12/23/21 12/23/21 lisinopril 10 mg tablet 10 mg PO DAILY 12/23/21 12/23/21 melatonin 3 mg tablet 3 mg PO BEDTIME PRN 12/23/21 12/23/21 ropinirole 0.25 mg tablet 0.25 mg PO BEDTIME 12/23/21 12/23/21 Previous Rx's Medication Instructions Recorded metoprolol succinate 100 mg 100 mg PO DAILY #30 tab 12/29/21 tablet,extended release 24 hr Allergies Allergy/AdvReac Type Severity Reaction Status Date / Time No Known Allergies Allergy Verified 12/16/21 02:35 Review of Systems Review of Systems: Constitutional : No Weight loss, No Fever, No Chills, No Night Sweats, No Fatigue, No Malaise ENT/Mouth : No Hearing loss, No Ear Pain, No Nasal Congestion, No Sinus Pain, No Hoarseness, No sore throat, No Rhinorrhea, No Swallowing Difficulty Eyes: No Eye Pain, No Swelling, No Redness, No Foreign Body, No Discharge, No Vision Changes Cardiovascular : No Chest Pain, No SOB, No Dyspnea on Exertion, No Orthopnea, No Edema, No Palpitations Respiratory : No Cough, No Sputum, No Wheezing, No Smoke Exposure, No Dyspnea Gastrointestinal : No Nausea, No Vomiting, No Diarrhea, No Constipation, No abdominal Pain, No Hematochezia, No Melena Genitourinary : no irregular bleeding, No Dysuria, No Urinary Frequency, No Hematuria, No Urinary Incontinence, No Urgency, No Flank Pain, No Urinary Flow Changes, No Hesitancy Musculoskeletal : History of unsteady gait No joint pain, No Myalgias, No Joint Swelling Skin : Laceration to the scalp Neuro : No Weakness, No Numbness, No Paresthesias, No Loss of Consciousness, No Dizziness, No Headache Psych : No Anxiety/Panic, No Depression, No SI/HI/AH/VH, No Social Issues, Heme/Lymph: No Bruising, No Bleeding,No Lymphadenopathy Endocrine : No Polyuria, No Polydipsia, No Temperature Intolerance [facility] Past Medical History Medical History HTN (hypertension) Parkinson disease Surgical History H/O spinal fusion Family History Family History (Updated 12/27/21 @ 10:01 by Bharathi Lawson MD) Mother CAD (coronary artery disease) Social History Social History Household Members: Spouse Housing: Homeless Unable to assess alcohol history related to: Unknown Alcohol intake: former Patient Tobacco Use Status: Former Tobacco user Substance Use Type: Marijuana Advance Directives: Yes Advance Directives on File: Yes Advance Directives Date on File: 12/27/21 Physical Exam Vital Signs: Vital Signs: Last Vital Signs Temp 98.3 F 01/01/22 03:11 Pulse 71 01/01/22 03:11 Resp 18 01/01/22 03:11 BP 126/67 01/01/22 03:11 Pulse Ox 99 01/01/22 03:11 BMI result Body Mass Index 23.8 Const: Other: Appearance: Alert. Oriented X3. No acute distress. Eyes: Pupils equal, round and reactive to light. ENT: Pharynx normal. Neck: Normal inspection. Neck supple. No lymph nodes noted. No crepitus CVS: Normal heart rate and rhythm. Pulses normal. Normal S1 and S2 Respiratory: No respiratory distress. Breath sounds normal. No Wheezing. No rales Abdomen: Soft and nontender. No rigidity. No distention. Skin: Skin warm and dry. There is a 0.5 cm laceration to the back of the scalp, bleeding controlled Extremities: No lower extremity edema. No Lacerations. No Rash Neuro: Oriented X 3. No motor deficit. No sensory deficit. Moving all extremities. No slurred speech. CN 2 through 12 grossly intact Psych: calm, cooperative, normal affect Course Course Course Narrative: Head CT and cervical spine CT , no acute pathology. Labs are at baseline, urinalysis pending. Case management and physical therapy consult pending. Physician of sedation started at 04:36 - Fall Lab Data Result diagrams: 01/01/22 03:04 01/01/22 03:04 Labs: Lab Results 01/01/22 01/01/22 01/01/22 Range/Units 03:04 03:04 03:04 WBC 8.7 (4.8-10.8) X10*3/uL RBC 3.78 L (4.60-5.80) X10*6/uL Hgb 11.5 L (14.0-18.0) g/dl Hct 34.6 L (42.0-52.0) % MCV 91.5 (80.0-98.0) fL MCH 30.4 (27.0-33.0) pg MCHC 33.2 (31.0-36.0) g/dl RDW 13.1 (11.0-16.0) % Plt Count 437 H (160-400) X10*3/uL MPV 8.7 L (9.4-12.4) fL Immature Gran % (Auto) 1.0 H (0.0-0.4) % Neut % (Auto) 66.8 (45-73) % Lymph % (Auto) 15.0 L (20-40) % Phelps % (Auto) 14.6 H (2-11) % Eos % (Auto) 2.3 (0-4) % Baso % (Auto) 0.3 (0-2) % Lymph # (Auto) 1.3 (1.2-4.9) X10*3/uL Phelps # (Auto) 1.3 H (0.1-1.2) X10*3/uL Eos # (Auto) 0.2 (0.0-0.4) X10*3/uL Baso # (Auto) 0.0 (0.0-0.2) X10*3/uL Abs Immat Gran (auto) 0.09 H (0.00-0.03) X10*3/uL Absolute Neuts (auto) 5.8 (2.0-8.3) x10*3/uL Absolute Nucleated RBC 0.000 (0.0-0.012) X10*3/uL Nucleated RBC % (auto) 0.0 (0.0-0.2) /100WBC PT 12.3 (9.9-13.0) SEC INR 1.1 (0.9-1.1) APTT 36.1 (24.1-38.0) SEC Sodium 137 (135-145) mmol/L Potassium 4.1 (3.3-5.1) mmol/L Chloride 102 (96-108) mmol/L Carbon Dioxide 31 H (22-29) mmol/L Anion Gap 8 L (12-20) BUN 16 D (9-16) mg/dL Creatinine 0.76 (0.5-1.4) mg/dL Estim Creat Clear Calc 100.4 Estimated GFR > 60 Random Glucose 106 (60-115) mg/dL Calcium 8.5 (8.4-10.2) mg/dL Magnesium 2.3 (1.6-2.6) mg/dL Troponin I High Sens (<3.5-35.0) ng/L Influenza Type A (PCR) (Negative) Influenza Type B (PCR) (Negative) RSV RNA Qual (PCR) (Negative) SARS-CoV-2 RNA (RT-PCR) (Negative) 01/01/22 01/01/22 Range/Units 03:04 03:04 WBC (4.8-10.8) X10*3/uL RBC (4.60-5.80) X10*6/uL Hgb (14.0-18.0) g/dl Hct (42.0-52.0) % MCV (80.0-98.0) fL MCH (27.0-33.0) pg MCHC (31.0-36.0) g/dl RDW (11.0-16.0) % Plt Count (160-400) X10*3/uL MPV (9.4-12.4) fL Immature Gran % (Auto) (0.0-0.4) % Neut % (Auto) (45-73) % Lymph % (Auto) (20-40) % Phelps % (Auto) (2-11) % Eos % (Auto) (0-4) % Baso % (Auto) (0-2) % Lymph # (Auto) (1.2-4.9) X10*3/uL Phelps # (Auto) (0.1-1.2) X10*3/uL Eos # (Auto) (0.0-0.4) X10*3/uL Baso # (Auto) (0.0-0.2) X10*3/uL Abs Immat Gran (auto) (0.00-0.03) X10*3/uL Absolute Neuts (auto) (2.0-8.3) x10*3/uL Absolute Nucleated RBC (0.0-0.012) X10*3/uL Nucleated RBC % (auto) (0.0-0.2) /100WBC PT (9.9-13.0) SEC INR (0.9-1.1) APTT (24.1-38.0) SEC Sodium (135-145) mmol/L Potassium (3.3-5.1) mmol/L Chloride (96-108) mmol/L Carbon Dioxide (22-29) mmol/L Anion Gap (12-20) BUN (9-16) mg/dL Creatinine (0.5-1.4) mg/dL Estim Creat Clear Calc Estimated GFR Random Glucose (60-115) mg/dL Calcium (8.4-10.2) mg/dL Magnesium (1.6-2.6) mg/dL Troponin I High Sens 11.0 (<3.5-35.0) ng/L Influenza Type A (PCR) NEGATIVE (Negative) Influenza Type B (PCR) NEGATIVE (Negative) RSV RNA Qual (PCR) NEGATIVE (Negative) SARS-CoV-2 RNA (RT-PCR) NEGATIVE (Negative) Imaging Data Head CT and cervical spine CT: Radiologist's impression: FINDINGS: Head: There is no evidence of acute intracranial hemorrhage or territorial infarction. No abnormal mass effect or midline shift is seen. Calvillo to white matter differentiation is well preserved. No extra-axial fluid collections are identified. No hydrocephalus. Proportional prominence of the ventricles and sulcal spaces is consistent with mild volume loss. Patchy periventricular and deep white matter hypoattenuation is consistent with mild small vessel ischemic changes. No acute osseous or soft tissue abnormality. Mucous retention cysts in both maxillary sinuses. The mastoid air cells and visualized portions of the paranasal sinuses are otherwise well aerated. Cervical spine: Intact anterior fusion hardware at C5-C6. There is anatomic alignment of the vertebral bodies and posterior elements. The atlantoaxial and atlantooccipital articulations are intact. Vertebral body heights are maintained. There is multilevel intervertebral disc space narrowing with endplate osteophyte formation and facet arthropathy. No evidence of acute fracture. No prevertebral soft tissue swelling. Mild centrilobular emphysema at the lung apices.. The thyroid gland is unremarkable. CT/CT head/brain wo con IMPRESSION: ? 1. No acute intracranial finding. 2. No fracture or malalignment of the cervical spine. Chest x-ray: Radiologist's impression: FINDINGS: The lungs are well expanded. There is no focal consolidation, edema, or effusion. No pneumothorax. The cardiomediastinal silhouette is within normal limits. No acute osseous abnormality. Partially visualized cervical fusion hardware. XR/XR chest 1V IMPRESSION: Clear lungs. No displaced fractures are seen. Discharge Plan Discharge Clinical Impression: Multiple falls Patient Disposition: Still a Patient Prescriptions: No Action melatonin 3 mg Tablet 3 mg PO BEDTIME PRN (Reason: Sleep) 0RF lisinopril 10 mg Tablet 10 mg PO DAILY 0RF gabapentin 300 mg Capsule 300 mg PO BEDTIME 0RF gabapentin 100 mg Capsule 200 mg PO DAILY 0RF amlodipine 2.5 mg Tablet 7.5 mg PO DAILY 0RF carbidopa-levodopa 25-100 mg Tablet 1 tab PO BID@0700,1300 0RF ropinirole 0.25 mg Tablet 0.25 mg PO BEDTIME 0RF Rx Instructions: administer 1-3 hours before bedtime ascorbic acid (vitamin C) 1,000 mg Tablet 1,000 mg PO DAILY 0RF metoprolol succinate 100 mg Tablet Extended Release 24 Hr 100 mg PO DAILY Qty: 30 0RF Protocol: Hold for SBP/HR < HOLD for SBP < : 90 HOLD for HR < : 60
[2022-01-01 05:58] VITALS: BP 139/71; PULSE 80; RESP 16; TEMP 36.7; O2SAT 97
--- NOTE | 2022-01-01 06:46 | PC.NURSE ---
Dr. Moreno at bedside to assess posterior head laceration-MD cleansed head laceration with NS, pat dried, and applied 2 jer-no bleeding noted to stapled wound, ESVIN at present. MD discussed with patient to meet with outpatient case manager in am to discuss pt's option for rehab placement.
[2022-01-01 06:59] LABS: Appearance Urine CLEAR; Color Urine YELLOW; Glucose Urine UA NEG (NEG); Leukocyte Esterase Urine TRACE (NEG); Nitrite Urine NEG (NEG); Urine Blood NEG (NEG); Urine Ketones NEG (NEG); Urine Protein NEG (NEG-TRACE)
[2022-01-01 07:27] LABS: Mucus Urine 1+ /LPF; RBC Urine 0-2 /HPF (0); Squamous Epithelial Cell Urine TRACE /LPF; WBC Urine 0-2 /HPF (0-4)
--- NOTE | 2022-01-01 08:17 | PHA.MEDREC ---
Pharmacy Consult ? Medication Reconciliation Went downstairs to speak with patient and patient is leaving via ambulance.
== END 2022-01-01 08:46 | disposition skilled nursing facility (03) ==
PROVIDERS: Nurse Practitioner Family; Emergency Provider Emergency Medicine
DX: R29.6 Repeated falls (principal); Z20.822 Contact with and (suspected) exposure to COVID-19; I48.91 Unspecified atrial fibrillation; G20 Parkinson's disease; I11.0 Hypertensive heart disease with heart failure; I50.9 Heart failure, unspecified
CPT/HCPCS: 0241U; 70450; 71045; 72125; 80048; 81001; 81003; 83735; 84484; 85025; 85610; 85730; 93005; 99284

== ENCOUNTER 2022-01-16 06:28 | Outpatient (REF) | payer MEDICARE, SELFPAY ==
[2022-01-16 06:38] LABS: MANUAL DIFF FLAG NO
[2022-01-16 07:25] LABS: Basophils Absolute Auto 0.1 X10*3/uL (0.0-0.2); Basophils Percent Auto 0.8 % (0-2); Eosinophils Absolute Auto 0.1 X10*3/uL (0.0-0.4); Eosinophils Percent Auto 1.9 % (0-4); Hematocrit 34.5 % (42.0-52.0); Hemoglobin 11.5 g/dl (14.0-18.0); Imm Gran Abs Auto 0.03 X10*3/uL (0.00-0.03); Imm Gran Pct Auto 0.5 % (0.0-0.4); Lymphocytes Absolute Auto 1.2 X10*3/uL (1.2-4.9); Lymphocytes Percent Auto 18.1 % (20-40); Mean Corpuscular HGB Conc 33.3 g/dl (31.0-36.0); Mean Platelet Volume 9.1 fL (9.4-12.4); Monocytes Absolute Auto 0.9 X10*3/uL (0.1-1.2); Monocytes Percent Auto 13.3 % (2-11); Neutrophils Absolute Auto 4.2 x10*3/uL (2.0-8.3); Neutrophils Percent Auto 65.4 % (45-73); Platelet Count 381 X10*3/uL (160-400); Red Blood Count 3.71 X10*6/uL (4.60-5.80); Red Cell Distribution Width 13.4 % (11.0-16.0); White Blood Count 6.4 X10*3/uL (4.8-10.8)
[2022-01-16 07:51] LABS: Anion Gap 15 (12-20); Blood Urea Nitrogen 9 mg/dL (9-16); Calcium 8.5 mg/dL (8.4-10.2); Carbon Dioxide 24 mmol/L (22-29); Chloride 104 mmol/L (96-108); Estimated Glomerular Filt Rate > 60; Glucose Random 81 mg/dL (60-115); Potassium 4.2 mmol/L (3.3-5.1); Sodium 139 mmol/L (135-145)
== END 2022-01-16 06:29 | disposition home or self-care (01) ==
LOC: HO.MMNH2L 06:28
PROVIDERS: Visit Provider Family Medicine
DX: G20 Parkinson's disease (principal); I48.91 Unspecified atrial fibrillation
CPT/HCPCS: 36415; 80048; 85025

== ENCOUNTER 2022-01-18 13:47 | Emergency (ER) | payer MEDICARE, SELFPAY ==
--- NOTE | ~2022-01-18 | XR_ITS ---
EXAMINATION: CHEST, BILATERAL KNEES, AND RIGHT HIP. CLINICAL INFORMATION: Fall with pain. COMPARISON: Chest x-ray of January 01, 2022 and shoulder of December 16, 2021 TECHNIQUE: AP chest, 4 views of the right knee, 4 views of the left knee, and AP film of the pelvis and 2 views of the right hip. FINDINGS: AP film of the chest does not demonstrate any evidence of acute parenchymal disease, pneumothorax, or pleural effusion. There is some mild elevation of the right hemidiaphragm. Heart normal size. No evidence of pulmonary edema. Right humeral head appears superiorly subluxed to some degree. AP film of the pelvis does not demonstrate any evidence of acute fracture or diastases. There is some degenerative spurring of the sacroiliac joints without evidence of fusion or widening. Distal aspect of the lumbar spine fusion hardware seen. The hip joint spaces appear maintained. There are some changes of enthesopathy present. Views of the right hip do not demonstrate any evidence of acute fracture or dislocation. Right hip joint spaces maintained. No abnormal lytic or sclerotic lesions identified. No femoral head collapse is seen. There is no evidence of acute fracture or dislocation of the right knee. Right knee joint spaces are maintained. No right knee effusion appreciated. There is some edema seen about the distal thigh soft tissues. There is no evidence of acute fracture or dislocation of the left knee. There is soft tissue edema seen about the medial aspect of the knee. Knee joint spaces are maintained with minimal spurring about the medial joint space compartment. There is some edema seen anterior to the patella. There is some mild spurring at the patellofemoral joint. No left knee effusion. XR/XR hip RT w PEL1V IMPRESSION: Question right humeral head superior subluxation on the AP view of the chest. No acute parenchymal disease within the chest. No acute fracture or diastases the pelvis. No acute fracture or dislocation of the right hip. No acute fracture or dislocation or effusion of the right or left knees. Soft tissue edema. Mild patellofemoral joint degenerative change.
--- NOTE | ~2022-01-18 | XR_ITS ---
EXAMINATION: XR SHOULDER, RIGHT CLINICAL INFORMATION: Right shoulder pain. COMPARISON: 12/24/2021 right shoulder radiographs. TECHNIQUE: AP external rotation, Grashey, scapular Y, and axillary views of the right shoulder. FINDINGS: The right glenohumeral joint is intact without significant degenerative changes. Mild right acromioclavicular degenerative joint changes are seen. There is no acute fracture or dislocation. The soft tissues are unremarkable. XR/XR shoulder RT min 2V IMPRESSION: Mild right acromio clavicular degenerative joint changes. No acute abnormality.
--- NOTE | ~2022-01-18 | CT_ITS ---
EXAMINATION: CT HIP WITHOUT CONTRAST, RIGHT CLINICAL INFORMATION: Fall with hip pain COMPARISON: Pelvis and hip radiographs earlier today TECHNIQUE: Thin section CT was performed through the pelvis and right hip. Additional 2-D coronal and sagittal reformatted images and axial 3-D maximum intensity projection MIP images are generated on the CT workstation. This CT examination was performed using dose optimization techniques as appropriate, variously including the following: *Automated exposure control *Adjustment of mA and/or kV according to patient size (this includes techniques or standardized protocols for targeted exams where dose is matched to indication/reason for exam; i.e. extremities or head) *Use of iterative reconstruction technique DLP: 254 mGy-cm FINDINGS: The visualized pelvis and femur appear normal. There is no evidence of a hip fracture or dislocation. The SI joint appears normal. Portions of the visualized spine demonstrate pedicular screws in L5. On the sociology faculty member film these can be seen from L2 through L5. No surrounding hematomas are seen in the thigh or visualized pelvis. A prominent right external iliac lymph node present measuring 1.[address]/CT hip RT wo con IMPRESSION: No evidence of a traumatic injury involving the visualized pelvis or hip.
[2022-01-18 13:54] VITALS: BP 120/80; BP 126/65; PULSE 95; PULSE 98; RESP 18; TEMP 36.8; O2SAT 100; O2SAT 96; BMI 23.0
--- NOTE | 2022-01-18 14:09 | ECG_ITS ---
Test Reason : fall Blood Pressure : / mmHG Vent. Rate : 074 BPM Atrial Rate : 074 BPM P-R Int : 196 ms QRS Dur : 094 ms QT Int : 392 ms P-R-T Axes : 000 010 052 degrees QTc Int : 435 ms Sinus rhythm with Premature supraventricular complexes and with frequent Premature ventricular complexes Nonspecific ST abnormality Abnormal ECG When compared with ECG of 01-JAN-2022 02:46, Premature ventricular complexes are now Present Premature supraventricular complexes are now Present Referred By: Cyndi Moreno Electronically Signed By:AMANDA MAST
--- NOTE | 2022-01-18 14:12 | ED_ITS ---
HPI - Fall General Chief Complaint: Fall <Cyndi Moreno MD - Last Filed: 01/18/22 20:48> Stated Complaint: FALL,-LOC,-HS,DIZZY,SHLDER PAIN,-COLLAR,-THINNERS <Cyndi Moreno MD - Last Filed: 01/18/22 20:48> Time Seen by Provider: 01/18/22 13:52 <Cyndi Moreno MD - Last Filed: 01/18/22 20:48> Source: patient and EMS <Cyndi Moreno MD - Last Filed: 01/18/22 20:48> Mode of arrival: EMS <Cyndi Moreno MD - Last Filed: 01/18/22 20:48> Limitations: no limitations <Cyndi Moreno MD - Last Filed: 01/18/22 20:48> History of Present Illness HPI Narrative: Patient comes to the emergency room from home for multiple falls. Patient has history of recurrent falls. Patient was discharged from [facility] 2 days ago. Patient states that he was at home, today he has had 6 falls in total. Patient did not hit his head, did not lose consciousness. Patient had a difficult time getting up. The last time that he was on the floor, it took him <Cyndi Moreno MD - Last Filed: 01/18/22 20:48> Related Data Home Medications: Home Medications Medication Instructions Recorded Confirmed ascorbic acid (vitamin C) 1,000 mg 1,000 mg PO DAILY 12/23/21 12/23/21 tablet carbidopa 25 mg-levodopa 100 mg 1 tab PO BID@0700,1300 12/23/21 01/18/22 tablet gabapentin 100 mg capsule 200 mg PO DAILY 12/23/21 01/18/22 gabapentin 300 mg capsule 300 mg PO BEDTIME 12/23/21 01/18/22 lisinopril 10 mg tablet 10 mg PO DAILY 12/23/21 01/18/22 melatonin 3 mg tablet 3 mg PO BEDTIME PRN Sleep 12/23/21 12/23/21 ropinirole 0.25 mg tablet 0.25 mg PO BEDTIME 12/23/21 01/18/22 amlodipine 2.5 mg tablet 3 tab PO DAILY 01/18/22 01/18/22 Previous Rx's Medication Instructions Recorded metoprolol succinate 100 mg 100 mg PO DAILY #30 tabs 12/29/21 tablet,extended release 24 hr <Cyndi Moreno MD - Last Filed: 01/18/22 20:48> Allergies/Adverse Reactions: Allergies Allergy/AdvReac Type Severity Reaction Status Date / Time No Known Allergies Allergy Verified 12/16/21 02:35 <Cyndi Moreno MD - Last Filed: 01/18/22 20:48> FOR[facility]LY [facility], [facility] Past Medical History Medical History: Medical History HTN (hypertension) Parkinson disease <Cyndi Moreno MD - Last Filed: 01/18/22 20:48> Surgical History: Surgical History H/O spinal fusion <Cyndi Moreno MD - Last Filed: 01/18/22 20:48> Family History Family History: Family History (Updated 12/27/21 @ 10:01 by Bharathi Lawson MD) Mother CAD (coronary artery disease) <Cyndi Moreno MD - Last Filed: 01/18/22 20:48> Social History Social History: Social History Household Members: Spouse Housing: Homeless Unable to assess alcohol history related to: Unknown Alcohol intake: former Patient Tobacco Use Status: Former Tobacco user Use of substances other than those prescribed or required for medical reasons: No Substance Use Type: Marijuana Advance Directives: Yes Advance Directives on File: Yes Advance Directives Date on File: 12/27/21 <Cyndi Moreno MD - Last Filed: 01/18/22 20:48> Physical Exam Vital Signs: Vital Signs: Last Vital Signs Temp 98.8 F 01/19/22 07:45 Pulse 97 01/19/22 07:45 Resp 16 01/19/22 07:45 BP 140/78 H 01/19/22 07:45 Pulse Ox 98 01/19/22 07:45 O2 Del Method 01/19/22 07:45 BMI result Body Mass Index 23.0 <Cyndi Moreno MD - Last Filed: 01/18/22 20:48> Vital Signs: Last Vital Signs Temp 98.8 F 01/19/22 07:45 Pulse 97 01/19/22 07:45 Resp 16 01/19/22 07:45 BP 140/78 H 01/19/22 07:45 Pulse Ox 98 01/19/22 07:45 O2 Del Method 01/19/22 07:45 BMI result Body Mass Index 23.0 <YOMAIRA Rios - Last Filed: 01/19/22 11:19> Course Course Course Narrative: Labs at baseline. No acute findings. No hip fracture. Case management and PT consult pending. Physician observation started at 19:40 <Cyndi Moreno MD - Last Filed: 01/18/22 20:48> Reevaluation(s) Reevaluation #1: Physician observation continued. Seen by Physical therapy today. He reported 6 falls on the day he was discharged from acute rehab, 01/16/22. Physical therapy is recommending short-term rehab to optimize functional gains. Imaging reviewed - there is a question of a right humeral head superior subluxation on the AP view of the chest. On examination patient is able to abduct his right arm to about 100 degrees with discomfort. Will get dedicated XR imaging of the shoulder. Case management seeking placement. PRN tylenol ordered for pain. <YOMAIRA Rios - Last Filed: 01/19/22 11:19> MDM - Fall Lab Data Result diagrams: : 01/18/22 16:55 01/18/22 16:55 <Cyndi Moreno MD - Last Filed: 01/18/22 20:48> Labs: Lab Results 01/18/22 01/18/22 01/18/22 Range/Units 16:49 16:49 16:50 WBC (4.8-10.8) X10*3/uL RBC (4.60-5.80) X10*6/uL Hgb (14.0-18.0) g/dl Hct (42.0-52.0) % MCV (80.0-98.0) fL MCH (27.0-33.0) pg MCHC (31.0-36.0) g/dl RDW (11.0-16.0) % Plt Count (160-400) X10*3/uL MPV (9.4-12.4) fL Immature Gran % (Auto) (0.0-0.4) % Neut % (Auto) (45-73) % Lymph % (Auto) (20-40) % [place] % (Auto) (2-11) % Eos % (Auto) (0-4) % Baso % (Auto) (0-2) % Lymph # (Auto) (1.2-4.9) X10*3/uL [place] # (Auto) (0.1-1.2) X10*3/uL Eos # (Auto) (0.0-0.4) X10*3/uL Baso # (Auto) (0.0-0.2) X10*3/uL Abs Immat Gran (auto) (0.00-0.03) X10*3/uL Absolute Neuts (auto) (2.0-8.3) x10*3/uL Absolute Nucleated RBC (0.0-0.012) X10*3/uL Nucleated RBC % (auto) (0.0-0.2) /100WBC PT (9.9-13.0) SEC INR (0.9-1.1) Sodium (135-145) mmol/L Potassium (3.3-5.1) mmol/L Chloride (96-108) mmol/L Carbon Dioxide (22-29) mmol/L Anion Gap (12-20) BUN (9-16) mg/dL Creatinine (0.5-1.4) mg/dL Estim Creat Clear Calc Estimated GFR Random Glucose (60-115) mg/dL Calcium (8.4-10.2) mg/dL Magnesium (1.6-2.6) mg/dL Total Bilirubin (0.0-1.0) mg/dL Direct Bilirubin (0.0-0.5) mg/dL AST (5-37) U/L ALT (0-40) U/L Alkaline Phosphatase (39-117) U/L Total Creatine Kinase (38-174) U/L Troponin I High Sens (<3.5-35.0) ng/L Total Protein (6.5-8.0) g/dL Albumin (3.5-5.0) g/dL Urine Color YELLOW Urine Appearance CLEAR Urine pH 6.0 (5.0-8.0) Ur Specific [place] 1.010 (1.005-1.025) Urine Protein NEG (NEG-TRACE) MG/DL Urine Glucose (UA) NEG (NEG) MG/DL Urine Ketones 5 (NEG) MG/DL Urine Blood NEG (NEG) Urine Nitrite NEG (NEG) Ur Leukocyte Esterase NEG (NEG) Urine Opiates Screen Not Detected (Not Detect) Urine Fentanyl Screen Not Detected (Not Detect) Ur Barbiturates Screen Not Detected (Not Detect) Ur Phencyclidine Scrn Not Detected (Not Detect) Ur Amphetamines Screen Not Detected (Not Detect) U Benzodiazepines Scrn Not Detected (Not Detect) Urine Cocaine Screen Not Detected (Not Detect) U Marijuana (THC) Screen Not Detected (Not Detect) Ethyl Alcohol mg/dL COVID-19 (MIR) Negative (Negative) COVID-19 Clin Com See Note 01/18/22 01/18/22 01/18/22 Range/Units 16:55 16:55 16:55 WBC 9.6 (4.8-10.8) X10*3/uL RBC 3.97 L (4.60-5.80) X10*6/uL Hgb 12.0 L (14.0-18.0) g/dl Hct 36.9 L (42.0-52.0) % MCV 92.9 (80.0-98.0) fL MCH 30.2 (27.0-33.0) pg MCHC 32.5 (31.0-36.0) g/dl RDW 13.3 (11.0-16.0) % Plt Count 378 (160-400) X10*3/uL MPV 8.6 L (9.4-12.4) fL Immature Gran % (Auto) 0.3 (0.0-0.4) % Neut % (Auto) 73.3 H (45-73) % Lymph % (Auto) 14.4 L (20-40) % [place] % (Auto) 11.4 H (2-11) % Eos % (Auto) 0.2 (0-4) % Baso % (Auto) 0.4 (0-2) % Lymph # (Auto) 1.4 (1.2-4.9) X10*3/uL [place] # (Auto) 1.1 (0.1-1.2) X10*3/uL Eos # (Auto) 0.0 (0.0-0.4) X10*3/uL Baso # (Auto) 0.0 (0.0-0.2) X10*3/uL Abs Immat Gran (auto) 0.03 (0.00-0.03) X10*3/uL Absolute Neuts (auto) 7.1 (2.0-8.3) x10*3/uL Absolute Nucleated RBC 0.000 (0.0-0.012) X10*3/uL Nucleated RBC % (auto) 0.0 (0.0-0.2) /100WBC PT (9.9-13.0) SEC INR (0.9-1.1) Sodium 138 (135-145) mmol/L Potassium 4.2 (3.3-5.1) mmol/L Chloride 103 (96-108) mmol/L Carbon Dioxide 26 (22-29) mmol/L Anion Gap 13 (12-20) BUN 11 (9-16) mg/dL Creatinine 0.70 (0.5-1.4) mg/dL Estim Creat Clear Calc 110.1 Estimated GFR > 60 Random Glucose 97 (60-115) mg/dL Calcium 9.0 (8.4-10.2) mg/dL Magnesium 2.3 (1.6-2.6) mg/dL Total Bilirubin 0.8 (0.0-1.0) mg/dL Direct Bilirubin 0.4 (0.0-0.5) mg/dL AST 26 (5-37) U/L ALT < 6 (0-40) U/L Alkaline Phosphatase 116 (39-117) U/L Total Creatine Kinase 651 H (38-174) U/L Troponin I High Sens 16.2 (<3.5-35.0) ng/L Total Protein 6.8 (6.5-8.0) g/dL Albumin 4.0 (3.5-5.0) g/dL Urine Color Urine Appearance Urine pH (5.0-8.0) Ur Specific [place] (1.005-1.025) Urine Protein (NEG-TRACE) MG/DL Urine Glucose (UA) (NEG) MG/DL Urine Ketones (NEG) MG/DL Urine Blood (NEG) Urine Nitrite (NEG) Ur Leukocyte Esterase (NEG) Urine Opiates Screen (Not Detect) Urine Fentanyl Screen (Not Detect) Ur Barbiturates Screen (Not Detect) Ur Phencyclidine Scrn (Not Detect) Ur Amphetamines Screen (Not Detect) U Benzodiazepines Scrn (Not Detect) Urine Cocaine Screen (Not Detect) U Marijuana (THC) Screen (Not Detect) Ethyl Alcohol mg/dL COVID-19 (MIR) (Negative) COVID-19 Clin Com 01/18/22 01/18/22 Range/Units 16:55 21:34 WBC (4.8-10.8) X10*3/uL RBC (4.60-5.80) X10*6/uL Hgb (14.0-18.0) g/dl Hct (42.0-52.0) % MCV (80.0-98.0) fL MCH (27.0-33.0) pg MCHC (31.0-36.0) g/dl RDW (11.0-16.0) % Plt Count (160-400) X10*3/uL MPV (9.4-12.4) fL Immature Gran % (Auto) (0.0-0.4) % Neut % (Auto) (45-73) % Lymph % (Auto) (20-40) % [place] % (Auto) (2-11) % Eos % (Auto) (0-4) % Baso % (Auto) (0-2) % Lymph # (Auto) (1.2-4.9) X10*3/uL [place] # (Auto) (0.1-1.2) X10*3/uL Eos # (Auto) (0.0-0.4) X10*3/uL Baso # (Auto) (0.0-0.2) X10*3/uL Abs Immat Gran (auto) (0.00-0.03) X10*3/uL Absolute Neuts (auto) (2.0-8.3) x10*3/uL Absolute Nucleated RBC (0.0-0.012) X10*3/uL Nucleated RBC % (auto) (0.0-0.2) /100WBC PT 13.1 H (9.9-13.0) SEC INR 1.2 H (0.9-1.1) Sodium (135-145) mmol/L Potassium (3.3-5.1) mmol/L Chloride (96-108) mmol/L Carbon Dioxide (22-29) mmol/L Anion Gap (12-20) BUN (9-16) mg/dL Creatinine (0.5-1.4) mg/dL Estim Creat Clear Calc Estimated GFR Random Glucose (60-115) mg/dL Calcium (8.4-10.2) mg/dL Magnesium (1.6-2.6) mg/dL Total Bilirubin (0.0-1.0) mg/dL Direct Bilirubin (0.0-0.5) mg/dL AST (5-37) U/L ALT (0-40) U/L Alkaline Phosphatase (39-117) U/L Total Creatine Kinase (38-174) U/L Troponin I High Sens (<3.5-35.0) ng/L Total Protein (6.5-8.0) g/dL Albumin (3.5-5.0) g/dL Urine Color Urine Appearance Urine pH (5.0-8.0) Ur Specific [place] (1.005-1.025) Urine Protein (NEG-TRACE) MG/DL Urine Glucose (UA) (NEG) MG/DL Urine Ketones (NEG) MG/DL Urine Blood (NEG) Urine Nitrite (NEG) Ur Leukocyte Esterase (NEG) Urine Opiates Screen (Not Detect) Urine Fentanyl Screen (Not Detect) Ur Barbiturates Screen (Not Detect) Ur Phencyclidine Scrn (Not Detect) Ur Amphetamines Screen (Not Detect) U Benzodiazepines Scrn (Not Detect) Urine Cocaine Screen (Not Detect) U Marijuana (THC) Screen (Not Detect) Ethyl Alcohol < 10 mg/dL COVID-19 (MIR) (Negative) COVID-19 Clin Com <Cyndi Moreno MD - Last Filed: 01/18/22 20:48> Lab Results 01/18/22 01/18/22 01/18/22 Range/Units 16:49 16:49 16:50 WBC (4.8-10.8) X10*3/uL RBC (4.60-5.80) X10*6/uL Hgb (14.0-18.0) g/dl Hct (42.0-52.0) % MCV (80.0-98.0) fL MCH (27.0-33.0) pg MCHC (31.0-36.0) g/dl RDW (11.0-16.0) % Plt Count (160-400) X10*3/uL MPV (9.4-12.4) fL Immature Gran % (Auto) (0.0-0.4) % Neut % (Auto) (45-73) % Lymph % (Auto) (20-40) % [place] % (Auto) (2-11) % Eos % (Auto) (0-4) % Baso % (Auto) (0-2) % Lymph # (Auto) (1.2-4.9) X10*3/uL [place] # (Auto) (0.1-1.2) X10*3/uL Eos # (Auto) (0.0-0.4) X10*3/uL Baso # (Auto) (0.0-0.2) X10*3/uL Abs Immat Gran (auto) (0.00-0.03) X10*3/uL Absolute Neuts (auto) (2.0-8.3) x10*3/uL Absolute Nucleated RBC (0.0-0.012) X10*3/uL Nucleated RBC % (auto) (0.0-0.2) /100WBC PT (9.9-13.0) SEC INR (0.9-1.1) Sodium (135-145) mmol/L Potassium (3.3-5.1) mmol/L Chloride (96-108) mmol/L Carbon Dioxide (22-29) mmol/L Anion Gap (12-20) BUN (9-16) mg/dL Creatinine (0.5-1.4) mg/dL Estim Creat Clear Calc Estimated GFR Random Glucose (60-115) mg/dL Calcium (8.4-10.2) mg/dL Magnesium (1.6-2.6) mg/dL Total Bilirubin (0.0-1.0) mg/dL Direct Bilirubin (0.0-0.5) mg/dL AST (5-37) U/L ALT (0-40) U/L Alkaline Phosphatase (39-117) U/L Total Creatine Kinase (38-174) U/L Troponin I High Sens (<3.5-35.0) ng/L Total Protein (6.5-8.0) g/dL Albumin (3.5-5.0) g/dL Urine Color YELLOW Urine Appearance CLEAR Urine pH 6.0 (5.0-8.0) Ur Specific [place] 1.010 (1.005-1.025) Urine Protein NEG (NEG-TRACE) MG/DL Urine Glucose (UA) NEG (NEG) MG/DL Urine Ketones 5 (NEG) MG/DL Urine Blood NEG (NEG) Urine Nitrite NEG (NEG) Ur Leukocyte Esterase NEG (NEG) Urine Opiates Screen Not Detected (Not Detect) Urine Fentanyl Screen Not Detected (Not Detect) Ur Barbiturates Screen Not Detected (Not Detect) Ur Phencyclidine Scrn Not Detected (Not Detect) Ur Amphetamines Screen Not Detected (Not Detect) U Benzodiazepines Scrn Not Detected (Not Detect) Urine Cocaine Screen Not Detected (Not Detect) U Marijuana (THC) Screen Not Detected (Not Detect) Ethyl Alcohol mg/dL COVID-19 (MIR) Negative (Negative) COVID-19 Clin Com See Note 01/18/22 01/18/22 01/18/22 Range/Units 16:55 16:55 16:55 WBC 9.6 (4.8-10.8) X10*3/uL RBC 3.97 L (4.60-5.80) X10*6/uL Hgb 12.0 L (14.0-18.0) g/dl Hct 36.9 L (42.0-52.0) % MCV 92.9 (80.0-98.0) fL MCH 30.2 (27.0-33.0) pg MCHC 32.5 (31.0-36.0) g/dl RDW 13.3 (11.0-16.0) % Plt Count 378 (160-400) X10*3/uL MPV 8.6 L (9.4-12.4) fL Immature Gran % (Auto) 0.3 (0.0-0.4) % Neut % (Auto) 73.3 H (45-73) % Lymph % (Auto) 14.4 L (20-40) % [place] % (Auto) 11.4 H (2-11) % Eos % (Auto) 0.2 (0-4) % Baso % (Auto) 0.4 (0-2) % Lymph # (Auto) 1.4 (1.2-4.9) X10*3/uL [place] # (Auto) 1.1 (0.1-1.2) X10*3/uL Eos # (Auto) 0.0 (0.0-0.4) X10*3/uL Baso # (Auto) 0.0 (0.0-0.2) X10*3/uL Abs Immat Gran (auto) 0.03 (0.00-0.03) X10*3/uL Absolute Neuts (auto) 7.1 (2.0-8.3) x10*3/uL Absolute Nucleated RBC 0.000 (0.0-0.012) X10*3/uL Nucleated RBC % (auto) 0.0 (0.0-0.2) /100WBC PT (9.9-13.0) SEC INR (0.9-1.1) Sodium 138 (135-145) mmol/L Potassium 4.2 (3.3-5.1) mmol/L Chloride 103 (96-108) mmol/L Carbon Dioxide 26 (22-29) mmol/L Anion Gap 13 (12-20) BUN 11 (9-16) mg/dL Creatinine 0.70 (0.5-1.4) mg/dL Estim Creat Clear Calc 110.1 Estimated GFR > 60 Random Glucose 97 (60-115) mg/dL Calcium 9.0 (8.4-10.2) mg/dL Magnesium 2.3 (1.6-2.6) mg/dL Total Bilirubin 0.8 (0.0-1.0) mg/dL Direct Bilirubin 0.4 (0.0-0.5) mg/dL AST 26 (5-37) U/L ALT < 6 (0-40) U/L Alkaline Phosphatase 116 (39-117) U/L Total Creatine Kinase 651 H (38-174) U/L Troponin I High Sens 16.2 (<3.5-35.0) ng/L Total Protein 6.8 (6.5-8.0) g/dL Albumin 4.0 (3.5-5.0) g/dL Urine Color Urine Appearance Urine pH (5.0-8.0) Ur Specific [place] (1.005-1.025) Urine Protein (NEG-TRACE) MG/DL Urine Glucose (UA) (NEG) MG/DL Urine Ketones (NEG) MG/DL Urine Blood (NEG) Urine Nitrite (NEG) Ur Leukocyte Esterase (NEG) Urine Opiates Screen (Not Detect) Urine Fentanyl Screen (Not Detect) Ur Barbiturates Screen (Not Detect) Ur Phencyclidine Scrn (Not Detect) Ur Amphetamines Screen (Not Detect) U Benzodiazepines Scrn (Not Detect) Urine Cocaine Screen (Not Detect) U Marijuana (THC) Screen (Not Detect) Ethyl Alcohol mg/dL COVID-19 (MIR) (Negative) COVID-19 Clin Com 01/18/22 01/18/22 Range/Units 16:55 21:34 WBC (4.8-10.8) X10*3/uL RBC (4.60-5.80) X10*6/uL Hgb (14.0-18.0) g/dl Hct (42.0-52.0) % MCV (80.0-98.0) fL MCH (27.0-33.0) pg MCHC (31.0-36.0) g/dl RDW (11.0-16.0) % Plt Count (160-400) X10*3/uL MPV (9.4-12.4) fL Immature Gran % (Auto) (0.0-0.4) % Neut % (Auto) (45-73) % Lymph % (Auto) (20-40) % [place] % (Auto) (2-11) % Eos % (Auto) (0-4) % Baso % (Auto) (0-2) % Lymph # (Auto) (1.2-4.9) X10*3/uL [place] # (Auto) (0.1-1.2) X10*3/uL Eos # (Auto) (0.0-0.4) X10*3/uL Baso # (Auto) (0.0-0.2) X10*3/uL Abs Immat Gran (auto) (0.00-0.03) X10*3/uL Absolute Neuts (auto) (2.0-8.3) x10*3/uL Absolute Nucleated RBC (0.0-0.012) X10*3/uL Nucleated RBC % (auto) (0.0-0.2) /100WBC PT 13.1 H (9.9-13.0) SEC INR 1.2 H (0.9-1.1) Sodium (135-145) mmol/L Potassium (3.3-5.1) mmol/L Chloride (96-108) mmol/L Carbon Dioxide (22-29) mmol/L Anion Gap (12-20) BUN (9-16) mg/dL Creatinine (0.5-1.4) mg/dL Estim Creat Clear Calc Estimated GFR Random Glucose (60-115) mg/dL Calcium (8.4-10.2) mg/dL Magnesium (1.6-2.6) mg/dL Total Bilirubin (0.0-1.0) mg/dL Direct Bilirubin (0.0-0.5) mg/dL AST (5-37) U/L ALT (0-40) U/L Alkaline Phosphatase (39-117) U/L Total Creatine Kinase (38-174) U/L Troponin I High Sens (<3.5-35.0) ng/L Total Protein (6.5-8.0) g/dL Albumin (3.5-5.0) g/dL Urine Color Urine Appearance Urine pH (5.0-8.0) Ur Specific [place] (1.005-1.025) Urine Protein (NEG-TRACE) MG/DL Urine Glucose (UA) (NEG) MG/DL Urine Ketones (NEG) MG/DL Urine Blood (NEG) Urine Nitrite (NEG) Ur Leukocyte Esterase (NEG) Urine Opiates Screen (Not Detect) Urine Fentanyl Screen (Not Detect) Ur Barbiturates Screen (Not Detect) Ur Phencyclidine Scrn (Not Detect) Ur Amphetamines Screen (Not Detect) U Benzodiazepines Scrn (Not Detect) Urine Cocaine Screen (Not Detect) U Marijuana (THC) Screen (Not Detect) Ethyl Alcohol < 10 mg/dL COVID-19 (MIR) (Negative) COVID-19 Clin Com <YOMAIRA Rios - Last Filed: 01/19/22 11:19> Imaging Data Bilateral x ray, hip x ray: Radiologist's impression: FINDINGS: AP film of the chest does not demonstrate any evidence of acute parenchymal disease, pneumothorax, or pleural effusion. There is some mild elevation of the right hemidiaphragm. Heart normal size. No evidence of pulmonary edema. Right humeral head appears superiorly subluxed to some degree. ?AP film of the pelvis does not demonstrate any evidence of acute fracture or diastases. There is some degenerative spurring of the sacroiliac joints without evidence of fusion or widening. Distal aspect of the lumbar spine fusion hardware seen. The hip joint spaces appear maintained. There are some changes of enthesopathy present. Views of the right hip do not demonstrate any evidence of acute fracture or dislocation. Right hip joint spaces maintained. No abnormal lytic or sclerotic lesions identified. No femoral head collapse is seen. There is no evidence of acute fracture or dislocation of the right knee. Right knee joint spaces are maintained. No right knee effusion appreciated. There is some edema seen about the distal thigh soft tissues. There is no evidence of acute fracture or dislocation of the left knee. There is soft tissue edema seen about the medial aspect of the knee. Knee joint spaces are maintained with minimal spurring about the medial joint space compartment. There is some edema seen anterior to the patella. There is some mild spurring at the patellofemoral joint. No left knee effusion. XR/XR chest 1V IMPRESSION: Question right humeral head superior subluxation on the AP view of the chest. ? No acute parenchymal disease within the chest. ? No acute fracture or diastases the pelvis. No acute fracture or dislocation of the right hip. ? No acute fracture or dislocation or effusion of the right or left knees. Soft tissue edema. Mild patellofemoral joint degenerative change. ? <Cyndi Moreno MD - Last Filed: 01/18/22 20:48> Discharge Plan Discharge Clinical Impression: Recurrent falls <Cyndi Moreno MD - Last Filed: 01/18/22 20:48> Patient Disposition: Still a Patient <Cyndi Moreno MD - Last Filed: 01/18/22 20:48> Prescriptions: No Action melatonin 3 mg Tablet 3 mg PO BEDTIME PRN (Reason: Sleep) lisinopril 10 mg Tablet 10 mg PO DAILY gabapentin 300 mg Capsule 300 mg PO BEDTIME gabapentin 100 mg Capsule 200 mg PO DAILY carbidopa-levodopa 25-100 mg Tablet 1 tab PO BID@0700,1300 ropinirole 0.25 mg Tablet 0.25 mg PO BEDTIME Rx Instructions: administer 1-3 hours before bedtime ascorbic acid (vitamin C) 1,000 mg Tablet 1,000 mg PO DAILY metoprolol succinate 100 mg Tablet Extended Release 24 Hr 100 mg PO DAILY Qty: 30 0RF Protocol: Hold for SBP/HR < HOLD for SBP < : 90 HOLD for HR < : 60 amlodipine 2.5 mg tablet 3 tab PO DAILY <Cyndi Moreno MD - Last Filed: 01/18/22 20:48>
[2022-01-18 16:46] VITALS: BP 155/80; PULSE 71; RESP 16; TEMP 37.3; O2SAT 97
[2022-01-18 17:00] LABS: MANUAL DIFF FLAG NO
[2022-01-18 17:03] LABS: Basophils Percent Auto 0.4 % (0-2); Eosinophils Percent Auto 0.2 % (0-4); Hematocrit 36.9 % (42.0-52.0); Imm Gran Abs Auto 0.03 X10*3/uL (0.00-0.03); Imm Gran Pct Auto 0.3 % (0.0-0.4); Lymphocytes Absolute Auto 1.4 X10*3/uL (1.2-4.9); Lymphocytes Percent Auto 14.4 % (20-40); Mean Corpuscular HGB Conc 32.5 g/dl (31.0-36.0); Mean Corpuscular Hemoglobin 30.2 pg (27.0-33.0); Mean Corpuscular Volume 92.9 fL (80.0-98.0); Mean Platelet Volume 8.6 fL (9.4-12.4); Monocytes Absolute Auto 1.1 X10*3/uL (0.1-1.2); Monocytes Percent Auto 11.4 % (2-11); Neutrophils Absolute Auto 7.1 x10*3/uL (2.0-8.3); Neutrophils Percent Auto 73.3 % (45-73); Platelet Count 378 X10*3/uL (160-400); Red Blood Count 3.97 X10*6/uL (4.60-5.80); Red Cell Distribution Width 13.3 % (11.0-16.0); White Blood Count 9.6 X10*3/uL (4.8-10.8)
[2022-01-18 17:06] LABS: Appearance Urine CLEAR; Color Urine YELLOW; Glucose Urine UA NEG (NEG); Leukocyte Esterase Urine NEG (NEG); Nitrite Urine NEG (NEG); Urine Blood NEG (NEG); Urine Ketones 5 MG/DL (NEG); Urine Protein NEG (NEG-TRACE)
[2022-01-18 17:16] LABS: Ethanol < 10 mg/dL
[2022-01-18 17:19] LABS: Amphetamine Screen Urine Not Detected (Not Detect); Barbiturates, Urine Not Detected (Not Detect); Benzodiazepines Screen Urine Not Detected (Not Detect); Cannabinoid Screen Urine Not Detected (Not Detect); Cocaine Screen Urine Not Detected (Not Detect); Fentanyl, urine Not Detected (Not Detect); Opiate Screen Urine Not Detected (Not Detect); Phencyclidine Screen Urine Not Detected (Not Detect)
[2022-01-18 17:20] LABS: COVID-19 Test Negative (Negative); IDNOW Serial# 16C4AD1C
[2022-01-18 17:24] LABS: Alanine Aminotransferase < 6 U/L (0-40); Alkaline Phosphatase 116 U/L (39-117); Anion Gap 13 (12-20); Aspartate Amino Transferase 26 U/L (5-37); Bilirubin Direct 0.4 mg/dL (0.0-0.5); Bilirubin Total 0.8 mg/dL (0.0-1.0); Blood Urea Nitrogen 11 mg/dL (9-16); Carbon Dioxide 26 mmol/L (22-29); Chloride 103 mmol/L (96-108); Creatinine Clr Calc Pharmacy 110.1; Estimated Glomerular Filt Rate > 60; Glucose Random 97 mg/dL (60-115); Magnesium 2.3 mg/dL (1.6-2.6); Potassium 4.2 mmol/L (3.3-5.1); Sodium 138 mmol/L (135-145); Total Protein 6.8 g/dL (6.5-8.0)
[2022-01-18 17:27] LABS: Troponin-I High Sensitivity 16.2 ng/L (<3.5-35.0)
--- NOTE | 2022-01-18 20:17 | PC.NURSE ---
Addendum entered by Marifer Kuo 01/18/22 22:52: report given to JAIME [place] Original Note: report received from JAIME Price. pt is alert and oriented. resting in bed. no signs of acute distress notice
--- NOTE | 2022-01-18 20:39 | MHC.CM.ED ---
Addendum entered by Sue Tello 01/18/22 20:56: Pt admits to falling twice with PT today. States fell once before they arrived and had difficulty getting up. Pt feels he needs a regular walker and not his rollator. PT consult pending. Addendum entered by Sue Tello 01/18/22 20:54: [facility] unwilling to have patient return to their care. State the patient is unsafe at home and needs rehab. Original Note: CM met with pt at the request of Dr. Moreno. Pt was discharged from [facility] 2 days ago and has fallen 6 times. Pt has Parkinson's. Was at [facility] 12/27-12/29. Pt uses a rollator walker and has [facility] x2 days. PCP Dr. Lachelle Simon. HCP on file. HCP/girlfriend Meena Oquendo ([phone]). Lives with girlfriend. Pt is agreeable to PT evaluation and STR. Pt is requesting referrals to Acute rehab only. First choice is [facility]. Pt has been at [facility] and [facility]. Does not want to go back to either facility. CM explained to pt that on last admission, acute rehab did not offer a bed and it would be helpful to place more referrals locally, but patient consents to only referrals to Acute Rehab at this time. Referrals placed at [facility], [place] and [place]. Vax/boostedx1/[employer]. Dr. Moreno aware of above. CM to follow for d/c needs.
[2022-01-18 21:46] VITALS: BP 147/68; PULSE 77; RESP 16; TEMP 36.9; O2SAT 95
[2022-01-18 21:46] LABS: INTERNATIONAL NORM RATIO 1.2 (0.9-1.1); Prothrombin Time 13.1 SEC (9.9-13.0)
[2022-01-18] MEDS: rOPINIRole HCL 0.25 MG TABLET PO (22:14)
[2022-01-18] MEDS: Gabapentin 300 MG CAPSULE PO (22:14)
--- NOTE | 2022-01-18 23:14 | PC.NURSE ---
Pt came into ER after series of falls. Pt has history of Parkinson's. Pt discharged from [facility] 12/29 to rehab at [facility]. Pt discharged from [facility] then had6 falls over 2 days which brought him back into ER. Spoke with case management, pt requests Acute rehab, denied admission by [facility] because he is not safe to go home. Pt scheduled for a PT eval in the morning to assess for appropriate next steps.
[2022-01-19] VITALS (7 sets, daily range): BP systolic 123–149; BP diastolic 57–87; PULSE 74–97; RESP 16–20; TEMP 36.8–37.6; O2SAT 95–98
--- NOTE | 2022-01-19 06:57 | PC.NURSE ---
Pt came in after a series of falls at home. Pt was at [facility] for rehab prior to falls. Denied admission to [facility] and pt is requesting acute rehab. PT evaluation planned for the morning to determine need for acute rehab. Pt has hx of parkinsons which may be contributing to falls. Pt A&O, stable. Tried to get out of bed and told staff that an ambulance is coming to pick him up. Continue to monitor and talk to PT for next steps.
[2022-01-19] MEDS: Carbidopa/Levodopa 25/100 TABLET 1 TAB PO ×2 (07:51→12:53)
--- NOTE | 2022-01-19 07:52 | PC.NURSE ---
patient AXO3 . skin warm dry intact . no signs of distress . patients gait stable . waiting for care team referral for plan of care . breakfast tray ordered .
[2022-01-19] MEDS: Gabapentin 100 MG CAPSULE 200 MG PO (08:01)
[2022-01-19] MEDS: amLODIPine Besylate 2.5 MG TABLET 7.5 MG PO (08:01)
[2022-01-19] MEDS: lisinopriL 10 MG TABLET PO (08:02)
--- NOTE | 2022-01-19 09:41 | MHC.CM.ED ---
Addendum entered by Yancy Novoa 01/19/22 13:53: [facility] requesting more info on possible humerus dislocation. Yeni BURNETTE aware. Xray ordered. Original Note: Patient remains in ER. Physical therapy eval completed. Rehab is being recommended. [facility] is not able to offer a bed. Clinical updates sent to [facility] and [facility]. Continue to monitor for d/c needs.
--- NOTE | 2022-01-19 11:59 | PC.NURSE ---
Pt has been up to [facility] mult times. Has difficulty planning walker use. Awaits placement/
[2022-01-19] MEDS: Acetaminophen 325 MG TABLET 975 MG PO (12:53)
--- NOTE | 2022-01-19 14:43 | MHC.CM.ED ---
[facility] is able to offer a bed. Patient can leave at 430pm. [facility] booked. Med nec with chart. Patient, sig other Miranda Felder RN and Yeni BURNETTE aware. Continue to monitor for d/c needs.
== END 2022-01-19 16:22 | disposition skilled nursing facility (03) ==
PROVIDERS: Emergency Provider Emergency Medicine
DX: R29.6 Repeated falls (principal); Z20.822 Contact with and (suspected) exposure to COVID-19; G20 Parkinson's disease; I48.91 Unspecified atrial fibrillation; I10 Essential (primary) hypertension; Z79.899 Other long term (current) drug therapy
CPT/HCPCS: 36415; 71045; 73030; 73502; 73560; 73700; 80048; 80076; 80307; 81003; 82077; 82550; 83735; 84484; 85025; 85610; 87635; 93005; 97162; 99285

== ENCOUNTER 2022-01-23 05:00 | Outpatient (REF) | payer MEDICARE, SELFPAY | END 2022-01-23 05:01 | disposition home or self-care (01) | LOC: HO.MMNH2L 05:00 | PROVIDERS: Visit Provider Family Medicine | DX: Z13.89 Encounter for screening for other disorder (principal) ==

== ENCOUNTER 2022-01-30 05:00 | Outpatient (REF) | payer MEDICARE, SELFPAY | END 2022-01-30 05:01 | disposition home or self-care (01) | LOC: HO.MMNH2L 05:00 | PROVIDERS: Visit Provider Family Medicine | DX: Z13.89 Encounter for screening for other disorder (principal) ==

== ENCOUNTER 2022-04-21 18:00 | Emergency (ER) | payer MEDICARE, SELFPAY ==
--- NOTE | ~2022-04-21 | CT_ITS ---
EXAM: CT HEAD WITHOUT CONTRAST CT CERVICAL SPINE INDICATION: Reason for Exam s/p unwitnessed fall TECHNIQUE: A noncontrast CT scan was performed from the skull base to the vertex. A noncontrast CT scan of the cervical spine was performed from the base of the skull through T1 at 2.5 mm and 0.625 mm collimation. Coronal and sagittal reformats were obtained at the acquisition workstation. This CT examination was performed using dose optimization techniques as appropriate, variously including the following: * Automated exposure control * Adjustment of mA and/or kV according to patient size (this includes techniques or standardized protocols for targeted exams where dose is matched to indication/reason for exam; i.e. extremities or head) * Use of iterative reconstruction technique Dose length product is 1159 mGy-cm. COMPARISON: CT 01/01/2022 FINDINGS: Head: There is no evidence of acute intracranial hemorrhage or territorial infarction. No abnormal mass effect or midline shift is seen. [place] to white matter differentiation is well preserved. No extra-axial fluid collections are identified. No hydrocephalus. Proportional prominence of the ventricles and sulcal spaces is consistent with mild volume loss. Patchy periventricular and deep white matter hypoattenuation is consistent with mild small vessel ischemic changes. No acute osseous or soft tissue abnormality. Mucous retention cyst in the left maxillary sinus. Mild ethmoid sinus mucosal thickening. The mastoid air cells and visualized portions of the remainder paranasal sinuses are otherwise well aerated. Cervical Spine: The atlantooccipital and atlantoaxial articulations are maintained. Straightening of the normal cervical lordosis. Intact anterior spinal fusion hardware at C5-C6. There is anatomic alignment of the vertebral bodies and posterior elements. No evidence of acute fracture. Multilevel cervical spondylosis with disc height narrowing, osteophytes, facet degeneration.. No prevertebral soft tissue swelling. The paraspinal soft tissues are unremarkable. No suspicious thyroid findings. Mild centrilobular emphysema in the lung apices. CT/CT cervical spine wo IV con IMPRESSION: 1. No CT evidence acute intracranial findings. 2. No CT evidence of acute fracture malalignment of the cervical spine.
--- NOTE | 2022-04-21 18:12 | ED.FALL ---
HPI - Fall General Chief Complaint: Fall Stated Complaint: fall Time Seen by Provider: 04/21/22 18:12 Source: patient and EMS Mode of arrival: EMS Limitations: no limitations History of Present Illness HPI Narrative: 67 yo male with history of Parkinson's disease, history of multiple falls, history of afib (unsure if on anticoagulation), CHF, chronic hip and back pain who presents to the ER from home via EMS for evaluation of multiple falls. He reports 2 falls at home today. He reports in the last week he has fallen probably 5 times. He states because of his Parkinson's he has chronic right upper thigh weakness and numbness. This causes gait instability and a shuffling gait. He denies hitting his head or losing consciousness. He was able to get up after each time that he fell. He sustained a scrape to his left knee but no other injuries. He denies being on blood thinners for his history of AFib. MD complaint: fall Onset (ago): hour(s) Fall from: standing Fall witnessed: no Place fall occurred: home Loss of consciousness: none Prolonged down time: no Symptoms prior to fall: none Context: tripped/slipped Location of injury - extremities: left: knee Severity: mild Severity scale (1-10): 3 Quality: aching Associated symptoms (after fall): denies Related Data Home Medications Medication Instructions Recorded Confirmed ascorbic acid (vitamin C) 1,000 mg 1,000 mg PO DAILY 12/23/21 12/23/21 tablet carbidopa 25 mg-levodopa 100 mg 1 tab PO BID@0700,1300 12/23/21 01/18/22 tablet gabapentin 100 mg capsule 200 mg PO DAILY 12/23/21 01/18/22 gabapentin 300 mg capsule 300 mg PO BEDTIME 12/23/21 01/18/22 lisinopril 10 mg tablet 10 mg PO DAILY 12/23/21 01/18/22 melatonin 3 mg tablet 3 mg PO BEDTIME PRN Sleep 12/23/21 12/23/21 ropinirole 0.25 mg tablet 0.25 mg PO BEDTIME 12/23/21 01/18/22 amlodipine 2.5 mg tablet 3 tab PO DAILY 01/18/22 01/18/22 Previous Rx's Medication Instructions Recorded metoprolol succinate 100 mg 100 mg PO DAILY #30 tabs 12/29/21 tablet,extended release 24 hr Allergies Allergy/AdvReac Type Severity Reaction Status Date / Time No Known Allergies Allergy Verified 12/16/21 02:35 Review of Systems Review of Systems: Constitutional: No Fever, No Chills ENT/Mouth: No sore throat, No Rhinorrhea, No Swallowing Difficulty Eyes: No Eye Pain, No Swelling, No Redness Cardiovascular: No Chest Pain, No SOB, No Orthopnea, No Edema Respiratory: No Cough, No Sputum, No Wheezing, No dyspnea Gastrointestinal: No Nausea, No Vomiting, No Diarrhea, No abdominal Pain, No Hematochezia, No Melena Genitourinary: No Dysuria, No Urinary Frequency, No Hematuria Musculoskeletal: + joint pain, No Myalgias Skin: + Skin Lesions, No rash Neuro: No Weakness, + Numbness, No Dizziness, No Headache Psych: No Anxiety/Panic, No Depression Heme/Lymph: No Bruising, No Lymphadenopathy Endocrine: No Polyuria, No Polydipsia PMFSH Past Medical History Medical History HTN (hypertension) Parkinson disease Surgical History H/O spinal fusion Family History Family History (Updated 12/27/21 @ 10:01 by Bharathi Lawson MD) Mother CAD (coronary artery disease) Social History Social History Household Members: Spouse Housing: Homeless Unable to assess alcohol history related to: Unknown Alcohol intake: former Patient Tobacco Use Status: Former Tobacco user Substance Use Type: Marijuana Advance Directives: Yes Advance Directives on File: Yes Advance Directives Date on File: 12/27/21 Physical Exam Vital Signs: Vital Signs: Last Vital Signs Temp 98.1 F 04/21/22 18:29 Pulse 65 04/21/22 20:02 Resp 16 04/21/22 20:02 BP 171/82 H 04/21/22 20:02 Pulse Ox 93 04/21/22 20:02 O2 Del Method 04/21/22 20:02 BMI result Body Mass Index 22.5 Appearance: Alert. Oriented X3. No acute distress. Eyes: Pupils equal, round and reactive to light. ENT: Pharynx normal. Neck: Normal inspection. Neck supple. No midline tenderness. CVS: Normal heart rate and rhythm. Pulses normal. Respiratory: No respiratory distress. Breath sounds normal. Abdomen: Soft and nontender. +BS x4 Skin: Skin warm and dry. Normal skin color. Normal skin turgor. No rashes. Extremities: No lower extremity edema. Superficial abrasion to the left knee. Normal range of motion of both knees and hips. Limited range of motion of the right shoulder due to chronic pain. Pain with abduction at 90 degrees. Neuro: Oriented X 3. No motor deficit. No sensory deficit. Normal speech and cognition. Course Course Course Narrative: 67-year-old male with history of AFib not on anticoagulation, cardiomyopathy, CHF, chronic hip and shoulder pain who presents to the ER for evaluation of multiple falls. He denies any head strike or loss of consciousness. He reports multiple falls in the last week. No major injuries and he has been able to get up after each fall. He reports being at an acute rehab in [place] for 2 months of rehab, he got home about 6 weeks ago[address] Will get CT scan of his head and neck given his falls were unwitnessed. No other major injuries noted on physical exam. Will also get baseline lab work. Reevaluation(s) Reevaluation #1: Lab workup is unremarkable. His CT head and neck is unremarkable. His EKG is sinus rhythm with first-degree AV block, no ischemic changes. He feels well. He is thinking that he may require short-term rehab given his recurrent falls. Will have Physical therapy evaluate him in the morning. Will get case management on board. Will place and physician observation at this time Physician observation started at 19:44. Patient placed in physician observation because patient is awaiting PT evaluation for the possible need of acute rehab. At the time observation was started patient's vital signs were stable. Patient is alert and oriented. Neuro exam is non-focal. CV: RRR and lungs are clear. Will continue to monitor. MDM - Fall Medical Records Attestation: I reviewed the patient's medical records. Lab Data Attestation: I reviewed the patient's lab results. Result diagrams: 04/21/22 18:37 04/21/22 18:37 Labs: Lab Results 04/21/22 04/21/22 04/21/22 Range/Units 18:37 18:37 18:37 WBC 6.6 (4.8-10.8) X10*3/uL RBC 4.17 L (4.60-5.80) X10*6/uL Hgb 12.6 L (14.0-18.0) g/dl Hct 37.5 L (42.0-52.0) % MCV 89.9 (80.0-98.0) fL MCH 30.2 (27.0-33.0) pg MCHC 33.6 (31.0-36.0) g/dl RDW 12.9 (11.0-16.0) % Plt Count 363 (160-400) X10*3/uL MPV 8.8 L (9.4-12.4) fL Immature Gran % (Auto) 0.5 H (0.0-0.4) % Neut % (Auto) 67.5 (45-73) % Lymph % (Auto) 18.0 L (20-40) % [place] % (Auto) 11.9 H (2-11) % Eos % (Auto) 1.5 (0-4) % Baso % (Auto) 0.6 (0-2) % Lymph # (Auto) 1.2 (1.2-4.9) X10*3/uL [place] # (Auto) 0.8 (0.1-1.2) X10*3/uL Eos # (Auto) 0.1 (0.0-0.4) X10*3/uL Baso # (Auto) 0.0 (0.0-0.2) X10*3/uL Abs Immat Gran (auto) 0.03 (0.00-0.03) X10*3/uL Absolute Neuts (auto) 4.4 (2.0-8.3) x10*3/uL Absolute Nucleated RBC 0.000 (0.0-0.012) X10*3/uL Nucleated RBC % (auto) 0.0 (0.0-0.2) /100WBC Sodium 142 (135-145) mmol/L Potassium 4.1 (3.3-5.1) mmol/L Chloride 105 (96-108) mmol/L Carbon Dioxide 27 (22-29) mmol/L Anion Gap 14 (12-20) BUN 14 (9-16) mg/dL Creatinine 0.74 (0.5-1.4) mg/dL Estim Creat Clear Calc 98.9 Estimated GFR > 60 Random Glucose 108 (60-115) mg/dL Calcium 8.8 (8.4-10.2) mg/dL Magnesium 2.1 (1.6-2.6) mg/dL Total Bilirubin 0.4 (0.0-1.0) mg/dL Direct Bilirubin 0.2 (0.0-0.5) mg/dL AST 13 D (5-37) U/L ALT 6 (0-40) U/L Alkaline Phosphatase 90 D (39-117) U/L Troponin I High Sens 9.1 (<3.5-35.0) ng/L Total Protein 6.5 (6.5-8.0) g/dL Albumin 3.9 (3.5-5.0) g/dL COVID-19 (MIR) (Negative) COVID-19 Clin Com 04/21/22 Range/Units 18:38 WBC (4.8-10.8) X10*3/uL RBC (4.60-5.80) X10*6/uL Hgb (14.0-18.0) g/dl Hct (42.0-52.0) % MCV (80.0-98.0) fL MCH (27.0-33.0) pg MCHC (31.0-36.0) g/dl RDW (11.0-16.0) % Plt Count (160-400) X10*3/uL MPV (9.4-12.4) fL Immature Gran % (Auto) (0.0-0.4) % Neut % (Auto) (45-73) % Lymph % (Auto) (20-40) % [place] % (Auto) (2-11) % Eos % (Auto) (0-4) % Baso % (Auto) (0-2) % Lymph # (Auto) (1.2-4.9) X10*3/uL [place] # (Auto) (0.1-1.2) X10*3/uL Eos # (Auto) (0.0-0.4) X10*3/uL Baso # (Auto) (0.0-0.2) X10*3/uL Abs Immat Gran (auto) (0.00-0.03) X10*3/uL Absolute Neuts (auto) (2.0-8.3) x10*3/uL Absolute Nucleated RBC (0.0-0.012) X10*3/uL Nucleated RBC % (auto) (0.0-0.2) /100WBC Sodium (135-145) mmol/L Potassium (3.3-5.1) mmol/L Chloride (96-108) mmol/L Carbon Dioxide (22-29) mmol/L Anion Gap (12-20) BUN (9-16) mg/dL Creatinine (0.5-1.4) mg/dL Estim Creat Clear Calc Estimated GFR Random Glucose (60-115) mg/dL Calcium (8.4-10.2) mg/dL Magnesium (1.6-2.6) mg/dL Total Bilirubin (0.0-1.0) mg/dL Direct Bilirubin (0.0-0.5) mg/dL AST (5-37) U/L ALT (0-40) U/L Alkaline Phosphatase (39-117) U/L Troponin I High Sens (<3.5-35.0) ng/L Total Protein (6.5-8.0) g/dL Albumin (3.5-5.0) g/dL COVID-19 (MIR) Negative (Negative) COVID-19 Clin Com See Note ECG Data Attestation: I personally reviewed and interpreted this ECG as follows: ECG interpretation date: 04/21/22 ECG interpretation time: 18:54 Prior ECG tracings: available for review Interpretation: Normal sinus rhythm first-degree AV block, ventricular rate 60 beats per minute, NJ interval prolonged to 112 MS, normal QTC, no ST segment elevations or depressions. Critical Care Time Critical Care Time Critical Care Time: No Discharge Plan Discharge Clinical Impression: Recurrent falls Patient Disposition: Still a Patient Prescriptions: No Action melatonin 3 mg Tablet 3 mg PO BEDTIME PRN (Reason: Sleep) lisinopril 10 mg Tablet 10 mg PO DAILY gabapentin 300 mg Capsule 300 mg PO BEDTIME gabapentin 100 mg Capsule 200 mg PO DAILY carbidopa-levodopa 25-100 mg Tablet 1 tab PO BID@0700,1300 ropinirole 0.25 mg Tablet 0.25 mg PO BEDTIME Rx Instructions: administer 1-3 hours before bedtime ascorbic acid (vitamin C) 1,000 mg Tablet 1,000 mg PO DAILY metoprolol succinate 100 mg Tablet Extended Release 24 Hr 100 mg PO DAILY Qty: 30 0RF Protocol: Hold for SBP/HR < HOLD for SBP < : 90 HOLD for HR < : 60 amlodipine 2.5 mg tablet 3 tab PO DAILY
[2022-04-21 18:13] VITALS: BP 142/70; PULSE 80; O2SAT 97; BMI 22.5
--- NOTE | 2022-04-21 18:14 | ECG_ITS ---
Test Reason : falls Blood Pressure : / mmHG Vent. Rate : 068 BPM Atrial Rate : 068 BPM P-R Int : 212 ms QRS Dur : 094 ms QT Int : 402 ms P-R-T Axes : 045 010 057 degrees QTc Int : 427 ms Sinus rhythm with 1st degree A-V block Nonspecific ST abnormality Abnormal ECG When compared with ECG of 18-JAN-2022 15:40, Premature ventricular complexes are no longer Present Premature supraventricular complexes are no longer Present Referred By: Yeni Dewey Electronically Signed By:JOSE A ROSAS
[2022-04-21 18:29] VITALS: BP 134/68; PULSE 71; RESP 16; TEMP 36.7; O2SAT 98
[2022-04-21 18:42] LABS: MANUAL DIFF FLAG NO
[2022-04-21 18:50] LABS: Basophils Percent Auto 0.6 % (0-2); Eosinophils Absolute Auto 0.1 X10*3/uL (0.0-0.4); Eosinophils Percent Auto 1.5 % (0-4); Hematocrit 37.5 % (42.0-52.0); Hemoglobin 12.6 g/dl (14.0-18.0); Imm Gran Abs Auto 0.03 X10*3/uL (0.00-0.03); Imm Gran Pct Auto 0.5 % (0.0-0.4); Lymphocytes Absolute Auto 1.2 X10*3/uL (1.2-4.9); Mean Corpuscular HGB Conc 33.6 g/dl (31.0-36.0); Mean Corpuscular Hemoglobin 30.2 pg (27.0-33.0); Mean Corpuscular Volume 89.9 fL (80.0-98.0); Mean Platelet Volume 8.8 fL (9.4-12.4); Monocytes Absolute Auto 0.8 X10*3/uL (0.1-1.2); Monocytes Percent Auto 11.9 % (2-11); Neutrophils Absolute Auto 4.4 x10*3/uL (2.0-8.3); Neutrophils Percent Auto 67.5 % (45-73); Platelet Count 363 X10*3/uL (160-400); Red Blood Count 4.17 X10*6/uL (4.60-5.80); Red Cell Distribution Width 12.9 % (11.0-16.0); White Blood Count 6.6 X10*3/uL (4.8-10.8)
[2022-04-21 19:00] LABS: Alanine Aminotransferase 6 U/L (0-40); Albumin Level 3.9 g/dL (3.5-5.0); Alkaline Phosphatase 90 U/L (39-117); Anion Gap 14 (12-20); Aspartate Amino Transferase 13 U/L (5-37); Bilirubin Direct 0.2 mg/dL (0.0-0.5); Bilirubin Total 0.4 mg/dL (0.0-1.0); Blood Urea Nitrogen 14 mg/dL (9-16); Calcium 8.8 mg/dL (8.4-10.2); Carbon Dioxide 27 mmol/L (22-29); Chloride 105 mmol/L (96-108); Creatinine Clr Calc Pharmacy 98.9; Estimated Glomerular Filt Rate > 60; Glucose Random 108 mg/dL (60-115); Magnesium 2.1 mg/dL (1.6-2.6); Potassium 4.1 mmol/L (3.3-5.1); Sodium 142 mmol/L (135-145); Total Protein 6.5 g/dL (6.5-8.0)
[2022-04-21 19:05] LABS: Troponin-I High Sensitivity 9.1 ng/L (<3.5-35.0)
[2022-04-21 19:05] LABS: COVID-19 Test Negative (Negative); IDNOW Serial# 55D5AD1C
[2022-04-21 20:02] VITALS: BP 171/82; PULSE 65; RESP 16; O2SAT 93
[2022-04-21 20:36] LABS: Appearance Urine Clear; Color Urine Yellow
[2022-04-21 20:37] LABS: Glucose Urine UA Negative (Negative); Leukocyte Esterase Urine Trace (Negative); Nitrite Urine Negative (Negative); Specific Gravity - Urine 1.015 (1.005-1.025); Urine Blood Negative (Negative); Urine Ketones Negative (Negative); Urine Protein Negative (Neg-Trace)
[2022-04-21 20:46] LABS: Bacteria Urine None Seen (None Seen); Hyaline Casts Urine 0-2 /LPF (0-2); RBC Urine 0-2 /HPF (0-2); Squamous Epithelial Cell Urine 0-2 /HPF (0-2); WBC Urine 0-5 /HPF (0-5)
[2022-04-21] MEDS: Acetaminophen 325 MG TABLET 975 MG PO (21:01)
--- NOTE | 2022-04-21 22:27 | MHC.CM.ED ---
CM met with patient at request of Yeni BURNETTE. Pt has Parkinson's and has fallen twice today. Pt feels he needs Acute/STR. Pt was at [facility] for STR recently and has been home for about 6 weeks. Pt doesn't feel he had much rehab at the facility. CM explained ACUTE vs STR. Pt interested in Acute Rehab and said he has been to [facility] in the past. Pt agreeable to referrals for Acute and STR, incase he is not offered an acute bed. PT is pending. Pt does understand that Parkinson's disease is a progressive disease. Pt lives with his partner/HCP Meena Oquendo ([phone]). HCP on file. He has a walker and a wheelchair. Pt has no services. Vax/boosted x1/[employer]. 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 D/C plan Acute vs STR. Will need transport. Referrals placed at 3 acute facilities and facilities in [place] and [place] at patient request. CM to follow for d/c needs.
[2022-04-21 22:46] VITALS: BP 132/67; PULSE 65; RESP 16; O2SAT 95
[2022-04-22] VITALS (9 sets, daily range): BP systolic 117–144; BP diastolic 71–97; PULSE 68–115; RESP 16–26; TEMP 36.4–37.2; O2SAT 95–98
--- NOTE | 2022-04-22 10:33 | PC.NURSE ---
breakfast given, up to commode with assistance, denies pain. call lee within reach
--- NOTE | 2022-04-22 12:00 | PC.NURSE ---
report obtained from dank, patient currently sleeping, rr 18, will continue to monitor
--- NOTE | 2022-04-22 13:28 | PC.NURSE ---
pt woke, attempted to get oob unassisted and fell to knees, no head strike, pt denied injury, provider at bedside, vitals stable, pt assisted back to bed, he is alert to person and time, pt stated he was at [place] [employer] , was told in report from dank that the patient is a&ox3, rings appropriately and gets oob to commode. bed alarm is now on, fall precautions are in place, will continue to monitor
--- NOTE | 2022-04-22 14:25 | PC.NURSE ---
with the assist of this nurse and a tech, pt ambulated with a shuffling gait with walker, pt very unsteady at times, denies pain or discomfort, fall precautions in place, will continue to monitor.
[2022-04-22] MEDS: LORazepam 1 MG TABLET PO (14:48)
--- NOTE | 2022-04-22 15:05 | PC.NURSE ---
Pt meds were administered by provider order. Pt was re-position and he is resting now. continue to monitor.
[2022-04-22] MEDS: QUEtiapine Fumarate 25 MG TABLET 12.5 MG PO (15:22)
--- NOTE | 2022-04-22 15:49 | MHC.CM.ED ---
PT gigi suggests acute rehab: [facility] declined citing more appropriate at SNF level and [facility] has no beds. Search extended to SNF level: review of Medicare days by SNF state his reup date isn't until the and he only has 40 days left with a copay of $196/day. Informed pt: he states he needs placement. Discussed [facility] financial assisting w/[employer] jon: pt states he will not qualify d/t a pension, investments and assets including a home. Message left for Meena, pt's spouse to call back for an update. Per pt request, SNF search broadened. ED CM to follow.
[2022-04-22] MEDS: QUEtiapine Fumarate 25 MG TABLET PO (18:33)
[2022-04-22] MEDS: lisinopriL 10 MG TABLET PO (18:55)
[2022-04-22] MEDS: Carbidopa/Levodopa 25/100 TABLET 1 TAB PO (18:55)
[2022-04-22] MEDS: DULoxetine HCl 30 MG CAPSULE.DR PO (18:56)
[2022-04-22] MEDS: Gabapentin 100 MG CAPSULE 200 MG PO (18:56)
[2022-04-22] MEDS: amLODIPine Besylate 2.5 MG TABLET 7.5 MG PO (18:56)
--- NOTE | 2022-04-22 18:59 | PC.NURSE ---
Addendum entered by Amanda Torres RN 04/22/22 19:01: fall precautions in place, bed alarm on, camera intact. Original Note: pt has increased confusion currently only alert to self, attempting to get oob, easily re-directable, pt denies pain/discomfort, panel monitor nsr 90s, vss, pt fed dinner by this nurse, pt medicated per order, pt cleaned up and positioned to comfort, baseball put on per his request, call lee within reach, will continue to monitor.
[2022-04-22] MEDS: Gabapentin 300 MG CAPSULE PO (22:03)
--- NOTE | 2022-04-22 22:07 | PC.NURSE ---
Pt meds were administered, the pharmacist was called for a missing meds and spoke with Delvin. Delvin will be delivering the meds. Pt VS are stable. Pt will be continue monitor.
[2022-04-22] MEDS: rOPINIRole HCL 0.25 MG TABLET PO (22:46)
--- NOTE | 2022-04-22 22:46 | PC.NURSE ---
Pt VS are stable and on the telemetry it shows nsr. Pharmacist drop pt medication and it was administered as order. Pt will be continuing monitor on the telemetry.
[2022-04-23 04:07] VITALS: BP 122/77; PULSE 89; RESP 19; O2SAT 95
[2022-04-23] MEDS: amLODIPine Besylate 2.5 MG TABLET 7.5 MG PO (07:43)
[2022-04-23] MEDS: Gabapentin 100 MG CAPSULE 200 MG PO (07:44)
[2022-04-23] MEDS: Carbidopa/Levodopa 25/100 TABLET 1 TAB PO ×2 (07:44→13:33)
[2022-04-23] MEDS: lisinopriL 10 MG TABLET PO (07:44)
[2022-04-23] MEDS: DULoxetine HCl 30 MG CAPSULE.DR PO (07:45)
[2022-04-23 07:46] VITALS: BP 121/70; PULSE 76; RESP 16; O2SAT 97
--- NOTE | 2022-04-23 10:35 | MHC.CM.ED ---
Review of STR referrals: no bed offers mainly d/t lack of availability. Several facilities interested and following. Updated pt and spouse Meena on plan.
--- NOTE | 2022-04-23 11:11 | PC.NURSE ---
sleeping, nad, skin wpd
[2022-04-23] MEDS: QUEtiapine Fumarate 25 MG TABLET PO ×3 (13:33→22:24)
--- NOTE | 2022-04-23 17:12 | PC.NURSE ---
Addendum entered by Swathi Carmichael RN 04/23/22 18:37: Pt again climbing out of bed. Pt redirectable. Safety concern. Po meds ordered by PA. Camera remains in place. Original Note: Pt attempting to get OOB. Pt assisted back to bed by this RN. Soiled bed changed and pt repositioned. Camera in place for safety.
[2022-04-23 17:15] VITALS: BP 100/62; PULSE 73; RESP 18; TEMP 36.6; O2SAT 97
[2022-04-23] MEDS: diphenhydrAMINE HCL 25 MG TABLET 50 MG PO (18:35)
[2022-04-23] MEDS: OLANZapine 5 MG TABLET PO (18:35)
[2022-04-23] MEDS: QUEtiapine Fumarate 25 MG TABLET 12.5 MG PO (20:12)
[2022-04-23] MEDS: Gabapentin 300 MG CAPSULE PO (20:12)
--- NOTE | 2022-04-23 20:16 | PC.NURSE ---
pt restless trying to climb out of bed, seroquil given as prescribed by the provider,
[2022-04-23 21:06] LABS: Glucose, Whole Blood 73 mg/dL (60-115)
--- NOTE | 2022-04-23 22:21 | PC.NURSE ---
Called Delvin at Pharmacy to request pt.'s 2100 dose Requip. Per Delvin, meds. will be around later on during rounds.
--- NOTE | 2022-04-23 22:51 | PC.NURSE ---
waiting pharmacy to bring reoquipt
[2022-04-23] MEDS: rOPINIRole HCL 0.25 MG TABLET PO (23:07)
[2022-04-24] VITALS (7 sets, daily range): BP systolic 92–136; BP diastolic 56–71; PULSE 67–83; RESP 12–20; TEMP 36.4; O2SAT 93–97
--- NOTE | 2022-04-24 05:53 | PC.NURSE ---
Pt requesting pain meds for a headache, aware, awaiting orders. Pt is asleep at this time.
[2022-04-24] MEDS: Carbidopa/Levodopa 25/100 TABLET 1 TAB PO ×2 (06:42→12:46)
[2022-04-24] MEDS: amLODIPine Besylate 2.5 MG TABLET PO ×3 (07:47→23:24)
[2022-04-24] MEDS: lisinopriL 10 MG TABLET PO (07:47)
[2022-04-24] MEDS: QUEtiapine Fumarate 25 MG TABLET PO ×4 (07:47→23:24)
[2022-04-24] MEDS: Gabapentin 100 MG CAPSULE 200 MG PO (07:47)
--- NOTE | 2022-04-24 08:44 | MHC.CM.ED ---
Patient remains in ER. Needs STR. Clinical updates sent to facilities still following patient: [facility], [facility], [facility], [facility], [facility], [facility] and [facility]. Continue to monitor for d/c needs.
--- NOTE | 2022-04-24 12:20 | MHC.CM.ED ---
[facility] is able to offer a bed. Patient, sig other Nereyda Robledo RN and Tiny BURNETTE aware. [facility] booked. Med nec with chart. Continue to monitor for d/c needs.
--- NOTE | 2022-04-24 13:12 | MHC.CM.ED ---
Addendum entered by Yancy Michaud 04/24/22 15:19: Received return telephone call from Meena. She is aware patient will not transfer to [facility] today. She can be reached at work during the day at [phone]. Original Note: Received notification from [facility]. They are unable to offer a bed at this time due to having a camera sitter. They can't accept patients that have 1:1 or camera sitters. Patient, Nereyda Robledo RN and Tiny BURNETTE aware. Continue to monitor for d/c needs.
[2022-04-24 13:30] LABS: Influenza A PCR NEGATIVE (Negative); Influenza B PCR NEGATIVE (Negative); Resp Syncy Virus RNA Qual PCR NEGATIVE (Negative); SARS COV2 PCR INHOUSE NEGATIVE (Negative)
[2022-04-24] MEDS: rOPINIRole HCL 0.25 MG TABLET PO (23:24)
[2022-04-24] MEDS: Gabapentin 300 MG CAPSULE PO (23:24)
[2022-04-25] VITALS (8 sets, daily range): BP systolic 108–135; BP diastolic 58–80; PULSE 68–89; RESP 14–24; TEMP 36.4–36.8; O2SAT 94–98
[2022-04-25] MEDS: Carbidopa/Levodopa 25/100 TABLET 1 TAB PO ×2 (07:18→12:22)
[2022-04-25] MEDS: amLODIPine Besylate 2.5 MG TABLET PO ×3 (08:17→20:19)
[2022-04-25] MEDS: QUEtiapine Fumarate 25 MG TABLET PO ×4 (08:17→20:19)
[2022-04-25] MEDS: Gabapentin 100 MG CAPSULE 200 MG PO (08:18)
[2022-04-25] MEDS: lisinopriL 10 MG TABLET PO (08:37)
--- NOTE | 2022-04-25 10:45 | PC.NURSE ---
pt awake and alert this am. Pt ate breakfast, took morning medications and performed mouth care.
--- NOTE | 2022-04-25 12:46 | MHC.CM.ED ---
Patient remains in ER. [facility] could potentially accept patient on 04/26. Requesting physically therapy evaluate patient again. T/W asked PT to see patient again. Left message for patient's sig other/HCP, Meena via telephone requesting return telephone call. Continue to monitor for d/c needs.
--- NOTE | 2022-04-25 13:43 | MHC.CM.ED ---
Addendum entered by Yancy Michaud 04/25/22 14:50: Patient can transfer to [facility] on 04/26 at 10am. Patient, Aung Robledo RN and Aaliyah BURNETTE aware. Original Note: Received return telephone call from Meena. They will accept bed at [facility] on 04/26 as long as no sitter is needed. Continue to monitor for d/c needs.
--- NOTE | 2022-04-25 19:22 | PC.NURSE ---
report taken from ayla ward pt here for case mgmt, has placement for tomorrow afternoon in ltc. pt has been alert, able to make bathroom needs known, has [place] cath 25mm in place draining clear [place] urine in drainage bag. ate most of dinner tray. wctm for dc needs.
[2022-04-25] MEDS: Gabapentin 300 MG CAPSULE PO (20:19)
[2022-04-25] MEDS: Acetaminophen 325 MG TABLET 650 MG PO (22:38)
--- NOTE | 2022-04-25 22:42 | PC.NURSE ---
given prn tylenol for headache, pt tex[place] cath fallen off for second time, linens changed, pt tolerated well.
[2022-04-26 07:05] VITALS: BP 133/66; PULSE 87; RESP 19; O2SAT 96
[2022-04-26] MEDS: QUEtiapine Fumarate 25 MG TABLET PO (08:02)
[2022-04-26] MEDS: lisinopriL 10 MG TABLET PO (08:02)
[2022-04-26] MEDS: Gabapentin 100 MG CAPSULE 200 MG PO (08:02)
[2022-04-26] MEDS: amLODIPine Besylate 2.5 MG TABLET PO (08:02)
[2022-04-26] MEDS: Carbidopa/Levodopa 25/100 TABLET 1 TAB PO (08:02)
== END 2022-04-26 10:48 | disposition still patient (30) ==
PROVIDERS: Physician Assistant; Physician Assistant Medical; Emergency Provider Emergency Medicine; PCP Internal Medicine
DX: S89.91XA Unspecified injury of right lower leg, initial encounter (principal); S43.402A Unspecified sprain of left shoulder joint, initial encounter; M25.562 Pain in left knee; M54.2 Cervicalgia; I48.91 Unspecified atrial fibrillation; R26.2 Difficulty in walking, not elsewhere classified; W01.0XXA Fall on same level from slipping, tripping and stumbling without subsequent striking against object, initial encounter; Y93.9 Activity, unspecified; Y92.9 Unspecified place or not applicable; Y99.9 Unspecified external cause status; Z79.899 Other long term (current) drug therapy; Z87.891 Personal history of nicotine dependence; Z20.822 Contact with and (suspected) exposure to COVID-19
CPT/HCPCS: 0241U; 70450; 72125; 80048; 80076; 81001; 82947; 83735; 84484; 85025; 87635; 93005; 97116; 97162; 99285; Q0163

== ENCOUNTER 2022-07-10 15:24 | Emergency (ER) | payer MEDICARE, SELFPAY ==
--- NOTE | ~2022-07-10 | CT_ITS ---
EXAMINATION: CT HEAD WITHOUT CONTRAST CLINICAL INFORMATION: Fall. COMPARISON: CT 04/21/2022 TECHNIQUE: Contiguous axial imaging was performed from the skull base to vertex without intravenous administration of contrast. This CT examination was performed using dose optimization techniques as appropriate, variously including the following: *Automated exposure control *Adjustment of mA and/or kV according to patient size (this includes techniques or standardized protocols for targeted exams where dose is matched to indication/reason for exam; i.e. extremities or head) *Use of iterative reconstruction technique DLP: 1103 mGy-cm FINDINGS: There is no evidence of acute intracranial hemorrhage or territorial infarction. No abnormal mass effect or midline shift is seen. Calvillo to white matter differentiation is well preserved. No extra-axial fluid collections are identified. Commensurate prominence of the ventricles and sulci is compatible with generalized parenchymal volume loss. There is mild periventricular and subcortical white matter hypoattenuation, most likely representing microangiopathic disease. No acute calvarial fracture.. Paranasal sinuses and mastoid air cells are well-aerated. CT/CT head/brain wo IV con IMPRESSION: No CT evidence of acute intracranial hemorrhage or edematous territorial infarction.
--- NOTE | ~2022-07-10 | CT_ITS ---
EXAMINATION: CT LUMBAR SPINE WITHOUT CONTRAST CLINICAL INFORMATION: Pain status post fall. History spinal fusion COMPARISON: Lumbar spine radiographs 12/23/2021 TECHNIQUE: Axial images were obtained through the lumbar spine without the administration of intravenous contrast. Coronal and sagittal reconstructed images generated. This CT examination was performed using dose optimization techniques as appropriate, variously including the following: *Automated exposure control *Adjustment of mA and/or kV according to patient size (this includes techniques or standardized protocols for targeted exams where dose is matched to indication/reason for exam; i.e. extremities or head) *Use of iterative reconstruction technique DLP; 1103 mGy-cm FINDINGS: Normal alignment of the thoracic spine. Vertebral body heights are maintained. No acute fracture seen. Post surgical changes of prior L2-L5 posterior spinal fusion. Intervertebral spacer on the right at L4-L5. The paired eliane and pedicle screw fixation is intact. No lucency surrounding the screws. Moderate disc height loss at L5-S1. Minimal disc height loss at L3-L4. Multilevel endplate sclerosis and endplate proliferative change. Status post chronic right L2 laminotomy change. Prior dorsal decompression at L3-L4 and L4-L5 including partial right facetectomy. Visualized paraspinal soft tissues markable for mild thickening of the left adrenal gland. No discrete nodule. Normal caliber abdominal aorta with mild to moderate vascular calcifications. No retroperitoneal lymphadenopathy or hematoma. Incompletely imaged distended appearing urinary bladder. CT/CT lumbar spine wo IV con IMPRESSION: 1. No fracture or malalignment of the lumbar spine. 2. Status post L2-L5 posterior spinal fusion with intact hardware.
[2022-07-10 15:30] VITALS: BP 122/72; BP 126/66; PULSE 67; RESP 16; TEMP 36.4; O2SAT 97; O2SAT 99; BMI 22.3
--- NOTE | 2022-07-10 15:53 | ED_ITS ---
HPI - Back Pain/Injury General Chief Complaint: Back Pain/Injury Stated Complaint: BACK PAIN Time Seen by Provider: 07/10/22 15:33 Source: patient Mode of arrival: EMS Limitations: no limitations History of Present Illness HPI Narrative: Patient is a 67-year-old male who presents emergency department for evaluation of midline lower back pain. He reports a history of chronic pain in this area due to spinal fusion to slightly 1 year. Is radiating to the bilateral legs. He states that he has had multiple falls recently. Reports that he fell today, he is not certain whether he hit his head or not, denies any loss of consciousness. Was recently in short-term rehab from April to May. States that he lives at home with his girlfriend but does not feel safe at home due to his increased weakness and falls. Denies fevers, chills, burning with micturition, urinary frequency/urgency/hesitancy, bladder or bowel dysfunction, numbness or tingling of the perineum or bilateral legs. Denies any recent mackenzie gical procedures, any known immune compromising conditions, personal history of cancer, or IV drug usage. MD elicited complaint: back pain Related Data Home Medications Medication Instructions Recorded Confirmed carbidopa 25 mg-levodopa 100 mg 1 tab PO BID@0700,1300 12/23/21 04/22/22 tablet gabapentin 100 mg capsule 200 mg PO DAILY 12/23/21 04/22/22 gabapentin 300 mg capsule 300 mg PO BEDTIME 12/23/21 04/22/22 lisinopril 10 mg tablet 10 mg PO DAILY 12/23/21 04/22/22 melatonin 3 mg tablet 3 mg PO BEDTIME PRN Sleep 12/23/21 04/22/22 amlodipine 2.5 mg tablet 1 tab PO TID 01/18/22 04/23/22 ascorbic acid (vitamin C) 500 mg 2 tab PO DAILY 04/23/22 04/23/22 tablet (Vitamin C) quetiapine 25 mg tablet 1 tab PO QID 04/23/22 04/23/22 ropinirole 0.25 mg tablet 1 tab PO BEDTIME 04/23/22 04/23/22 Previous Rx's Medication Instructions Recorded tramadol 50 mg tablet 50 mg PO Q8H PRN pain #7 tabs 07/10/22 Allergies Allergy/AdvReac Type Severity Reaction Status Date / Time No Known Allergies Allergy Verified 12/16/21 02:35 Review of Systems Review of Systems: Constitutional: No weight loss, fever, chills, weakness or fatigue. HEENT: No visual loss, blurred vision, double vision. No hearing loss, sneezing, congestion, runny nose or sore throat. Skin: No rash or itching. Cardiovascular: No chest pain, chest pressure or chest discomfort. No palpitatio ns or pedal edema. Respiratory: No shortness of breath, cough or sputum production. Gastrointestinal: No anorexia, nausea, vomiting or diarrhea. No abdominal pain or blood in stool. Genitourinary: No burning micturition. No urinary frequency or incontinence. Neurologic: No headache, dizziness, syncope, unilateral weakness, ataxia, numbness or tingling in the extremities. No change in bowel or bladder control. Musculoskeletal: + Back pain as noted in HPI. No joint pain or stiffness. Hematologic: No bleeding or bruising. Lymphatics: No enlarged lymph nodes. Psychiatric:No depression or anxiety. Endocrine: No reports of sweating. No cold or heat intolerance. No polyuria or polydipsia. Yes all other systems are reviewed and are negative [facility] Past Medical History Attestation statement: The following information was validated with the patient. Source: old records reviewed Medical History HTN (hypertension) Parkinson disease Surgical History H/O spinal fusion Family History Family History Mother CAD (coronary artery disease) Social History Social History Household Members: Spouse Housing: Homeless Unable to assess alcohol history related to: Unknown Alcohol intake: former Patient Tobacco Use Status: Former Tobacco user Use of substances other than those prescribed or required for medical reasons: No Substance Use Type: Marijuana Advance Directives: Yes Advance Directives on File: Yes Advance Directives Date on File: 12/27/21 Physical Exam Vital Signs: Vital Signs: Last Vital Signs Temp 97.5 F 07/10/22 15:30 Pulse 62 07/10/22 16:00 Resp 16 07/10/22 15:30 BP 145/82 H 07/10/22 16:00 Pulse Ox 98 07/10/22 16:00 O2 Del Method 07/10/22 16:00 BMI result Body Mass Index 22.3 Vital signs have been reviewed as normal and appeared to be correct. Blood pressure normal.? Heart rate normal.? Respiration rate normal. Temperature normal.? Oxygen saturation normal. Appearance: Alert.?Oriented to person, place and time. No acute distress.?Normal affect. Eyes: Pupils equal, round and reactive to light.? ENT: Pharynx normal.?? Neck: Normal inspection.? Neck supple.?? CVS: Heart sounds normal. Normal heart rate and rhythm.? Pulses normal; bilateral radial pulses 2+, bilateral posterior tibial/dorsalis pedis pulses 2+.? Respiratory: No respiratory distress.? Lung sounds clear to auscultation bilaterally?? Abdomen: Soft and non-tender. Normoactive bowel sounds. No pulsatile mass.?? Skin: Skin warm and dry.? Normal skin color.? Normal skin turgor.?? Extremities: No lower extremity edema.? No calf ttp? Back: + mild paraspinal muscular tenderness from lumbar region to coccyx. Positive midline spinal tenderness. No step-off's, or deformity. No CVA tenderness. Full ROM intact in bilateral lower extremities. Straight leg test positive on right; Straight leg test positive on left. No rashes, lesions, areas of induration or fluctuance, or signs of infection noted. Midline surgical scar is present. Neuro: Moves all extremities spontaneously. 3/5 strength in hip extension /flexion, abduction, adduction bilaterally. Sensation to light touch intact bilaterally. Patellar and Achilles reflex 2+ bilaterally. No focal neuro deficits. Course Course Course Narrative: Patient is a 67-year-old male with a past medical history of hypertension and Parkinson's disease presenting to emergency department for evaluation of acute on chronic lower back pain in the setting of recent falls. No focal neurological deficits upon examination. Midline lumbar and paraspinal muscle tenderness upon palpation, no palpable step-offs or deformities. Unknown whether head strike occurred with fall. Will obtain CT of the head, CT of the lumbar spine, urinalysis, CBC, and CMP. Will trial oxycodone for pain. Reevaluation(s) Reevaluation #1: CBC reveals a normocytic anemia consistent with baseline no leukocytosis. CMP is overall unremarkable. CT of the head with no acute intracranial pathology. CT of the lumbar spine without acute abnormalities. Patient requesting to be discharged home at this time, pain has improved after medication. He states that he is predominantly using a wheelchair to get around at home, very seldom was using the walker. He states that he feels safe to return home at this time. All questions were answered. He was advised to follow-up with his primary care provider outpatient. Time: 17:48 Medications Administered Discontinued Medications Generic Name Dose Route Start Last Admin Trade Name Renetta PRN Reason Stop Dose Admin Oxycodone HCl 5 mg 07/10/22 15:52 07/10/22 16:26 Oxycodone Hcl Immed Release 5 Mg Tablet PO 07/10/22 15:53 5 mg ONCE ONE Administration MDM - Back Pain/Injury Medical Records Attestation: I reviewed the patient's medical records. Lab Data Attestation: I reviewed the patient's lab results. Result diagrams: 07/10/22 16:25 07/10/22 16:25 Labs: Lab Results 07/10/22 07/10/22 07/10/22 Range/Units 16:25 16:25 18:16 WBC 6.9 (4.8-10.8) X10*3/uL RBC 4.15 L (4.60-5.80) X10*6/uL Hgb 12.7 L (14.0-18.0) g/dl Hct 39.0 L (42.0-52.0) % MCV 94.0 (80.0-98.0) fL MCH 30.6 (27.0-33.0) pg MCHC 32.6 (31.0-36.0) g/dl RDW 12.8 (11.0-16.0) % Plt Count 377 (160-400) X10*3/uL MPV 8.9 L (9.4-12.4) fL Immature Gran % (Auto) 0.1 (0.0-0.4) % Neut % (Auto) 73.1 H (45-73) % Lymph % (Auto) 14.9 L (20-40) % Ransom % (Auto) 11.1 H (2-11) % Eos % (Auto) 0.4 (0-4) % Baso % (Auto) 0.4 (0-2) % Lymph # (Auto) 1.0 L (1.2-4.9) X10*3/uL Ransom # (Auto) 0.8 (0.1-1.2) X10*3/uL Eos # (Auto) 0.0 (0.0-0.4) X10*3/uL Baso # (Auto) 0.0 (0.0-0.2) X10*3/uL Abs Immat Gran (auto) 0.01 (0.00-0.03) X10*3/uL Absolute Neuts (auto) 5.0 (2.0-8.3) x10*3/uL Absolute Nucleated RBC 0.000 (0.0-0.012) X10*3/uL Nucleated RBC % (auto) 0.0 (0.0-0.2) /100WBC Sodium 137 (135-145) mmol/L Potassium 3.9 (3.3-5.1) mmol/L Chloride 103 (96-108) mmol/L Carbon Dioxide 27 (22-29) mmol/L Anion Gap 11 L (12-20) BUN 10 (9-16) mg/dL Creatinine 0.68 (0.5-1.4) mg/dL Estim Creat Clear Calc 106.7 Estimated GFR > 60 Random Glucose 97 (60-115) mg/dL Calcium 8.9 (8.4-10.2) mg/dL Total Bilirubin 0.3 (0.0-1.0) mg/dL AST 12 (5-37) U/L ALT < 6 (0-40) U/L Alkaline Phosphatase 85 (39-117) U/L Total Protein 6.3 L (6.5-8.0) g/dL Albumin 3.8 (3.5-5.0) g/dL Urine Color Yellow Urine Appearance Clear Urine pH 6.5 (5.0-9.0) Ur Specific [place] 1.015 (1.005-1.025) Urine Protein Negative (Neg-Trace) mg/dL Urine Glucose (UA) Negative (Negative) mg/dL Urine Ketones Negative (Negative) mg/dL Urine Blood Moderate (2+) H (Negative) Urine Nitrite Negative (Negative) Ur Leukocyte Esterase Small (1+) H (Negative) Urine RBC >20 H (0-2) /HPF Urine WBC 0-5 (0-5) /HPF Ur Squamous Epith Cells 0-2 (0-2) /HPF Urine Bacteria None Seen (None Seen) Hyaline Casts 0-2 (0-2) /LPF Imaging Data CT scan - head: Radiologist's impression: CT/CT head/brain wo IV con IMPRESSION: No CT evidence of acute intracranial hemorrhage or edematous territorial infarction. ? CT lumbar spine: Radiologist's impression: CT/CT lumbar spine wo IV con IMPRESSION: 1.? No fracture or malalignment of the lumbar spine. 2.? Status post L2-L5 posterior spinal fusion with intact hardware. ? Discharge Plan Discharge Clinical Impression: Strain of lumbar region Patient Disposition: Home, Self-Care Instructions: Low Back Strain (ED), Lower Back Exercises (ED) Additional Instructions: Rest, apply ice/heat for 10-15 minutes 3-4 times daily, continue taking your medications as prescribed. You can take Tylenol 500 mg, 2 tablets (1,000mg) every 4-6 hours as needed for pain, but not to exceed 3 doses daily (3,000mg).? In additional prescription for tramadol was sent to your pharmacy, this is to be used for severe pain. Return to the emergency department any new or worsening symptoms or concerns. Follow-up with your primary care provider. Prescriptions: New tramadol 50 mg tablet 50 mg PO Q8H PRN (Reason: pain) Qty: 7 0RF No Action melatonin 3 mg Tablet 3 mg PO BEDTIME PRN (Reason: Sleep) lisinopril 10 mg Tablet 10 mg PO DAILY gabapentin 300 mg Capsule 300 mg PO BEDTIME gabapentin 100 mg Capsule 200 mg PO DAILY carbidopa-levodopa 25-100 mg Tablet 1 tab PO BID@0700,1300 amlodipine 2.5 mg tablet 1 tab PO TID quetiapine 25 mg tablet 1 tab PO QID ascorbic acid (vitamin C) [Vitamin C] 500 mg tablet 2 tab PO DAILY ropinirole 0.25 mg tablet 1 tab PO BEDTIME Referrals: Lachelle Simon MD [Primary Care Provider] - Interventions: ED Discharge Assessment Last Done: 07/10/22 19:49 Discharge Date/Time: 07/10/22 19:50
--- OUTSIDE RECORDS SUMMARY | 2022-07-10 15:55 | XMS_ITS | Continuity of Care Document ---
:1955 Author Organization [facility] Address [address] [place] [address], [address] [place] [address], [address] [place] [address]- Care Team Providers Name Role Phone Staci Berger MD Primary Care Physician Encounter [facility] Date(s): 03/09/22 - 04/08/22 [facility] [address] [place] [address], [address] [place] [address], [address] [place] [address]- Care Team PersonnelName: Staci Berger MD Address: [address] [place] [address] Primary Care [place], [place] [id number] [place] [address]
--- OUTSIDE RECORDS SUMMARY | 2022-07-10 15:56 | XMS_ITS | Continuity of Care Document ---
:1955 Author Organization [facility] Address [address] [place] [id number]- Care Team Providers Name Role Phone Ab ANDRE, Staci Nava Primary Care Physician Encounter [facility] Date(s): 08/31/21 - 10/06/[address] [id number] Attending Physician: Juan Armenta MD Admitting Physician: Juan Armenta MD Referring Physician: Juan Armenta MD
--- OUTSIDE RECORDS SUMMARY | 2022-07-10 15:56 | XMS_ITS | Continuity of Care Document ---
:1955 Author Organization [facility] Address [address] [place] [address], [address] [place] [address], [address] [place] [address]- Care Team Providers Name Role Phone Staci Berger MD Primary Care Physician Encounter [facility] Date(s): 04/04/22 - 05/04/22 [facility] [address] [place] [address], [address] [place] [address], [address] [place] [id number] Attending Physician: Kenneth Monaco Admitting Physician: Kenneth Monaco Referring Physician: tr, [id number] Care Team PersonnelName: Staci Berger MD Address: [address] [place] [address] Primary Care [place], [place] [id number] [place] [address]
--- OUTSIDE RECORDS SUMMARY | 2022-07-10 15:56 | XMS_ITS ---
:1955 Author Care Team Providers Name Role Phone KAITLYN Nava Shawn Leon Primary Care Provider [phone] ROWAN ANDRE Allergies Code Code System Name Reaction Severity Status Onset NKDA ? Medications Name Status Start Date Stop Date ? ? albuterol sulfate HFA 90 mcg/actuation aerosol inhaler Active ? Not available amlodipine 5 mg tablet Active ? Not avail able amoxicillin 500 mg capsule Completed ? 08/15 atenolol 100 mg tablet Active ? Not avail able azelastine 137 mcg (0.1 %) nasal spray aerosol Active ? Not available bupropion HCl XL 150 mg 24 hr tablet, extended release Active ? Not available bupropion HCl XL 300 mg 24 hr tablet, extended release Active ? Not available cyclobenzaprine 10 mg tablet Active ? Not available fluticasone propionate 50 mcg/actuation nasal Active ? Not available spray,suspension ipratropium 0.5 mg-albuterol 3 mg (2.5 mg base)/3 mL nebulizatio n soln Active ? Not available Inhale 3 mL by nebulization route. lisinopril 40 mg tablet Active ? Not avai lable prednisone 20 mg tablet Active ? Not avai lable Problems None recorded. Procedures Date Name Performed by ? 08/15/2019 XR, Chest, [address] [facility] [address] [place] [address] (Work Place) Results Lab Results None recorded. Past Encounters None recorded. Social History Tobacco Smoking Status Current Every Day Smoker Notes: 7 p ks weekly Vaccine List None recorded. Plan of Care Reminders Provider Appointments None recorded. ? ? Lab None recorded. ? ? Referral None recorded. ? ? Procedures None recorded. ? ? Surgeries None recorded. ? ? Imaging None recorded. ? ? Vitals Blood Pressure 132/83 mm[Hg]
[2022-07-10 16:00] VITALS: BP 145/82; PULSE 62; O2SAT 98
[2022-07-10] MEDS: oxyCODONE HCl Immed Release 5 MG TABLET PO (16:26)
--- NOTE | 2022-07-10 16:27 | PC.NURSE ---
pt medicated for 8/10 back pain per order
[2022-07-10 16:31] LABS: MANUAL DIFF FLAG NO
[2022-07-10 16:35] LABS: Basophils Percent Auto 0.4 % (0-2); Eosinophils Percent Auto 0.4 % (0-4); Hemoglobin 12.7 g/dl (14.0-18.0); Imm Gran Abs Auto 0.01 X10*3/uL (0.00-0.03); Imm Gran Pct Auto 0.1 % (0.0-0.4); Lymphocytes Percent Auto 14.9 % (20-40); Mean Corpuscular HGB Conc 32.6 g/dl (31.0-36.0); Mean Corpuscular Hemoglobin 30.6 pg (27.0-33.0); Mean Platelet Volume 8.9 fL (9.4-12.4); Monocytes Absolute Auto 0.8 X10*3/uL (0.1-1.2); Monocytes Percent Auto 11.1 % (2-11); Neutrophils Percent Auto 73.1 % (45-73); Platelet Count 377 X10*3/uL (160-400); Red Blood Count 4.15 X10*6/uL (4.60-5.80); Red Cell Distribution Width 12.8 % (11.0-16.0); White Blood Count 6.9 X10*3/uL (4.8-10.8)
[2022-07-10 16:57] LABS: Alanine Aminotransferase < 6 U/L (0-40); Albumin Level 3.8 g/dL (3.5-5.0); Alkaline Phosphatase 85 U/L (39-117); Anion Gap 11 (12-20); Aspartate Amino Transferase 12 U/L (5-37); Bilirubin Total 0.3 mg/dL (0.0-1.0); Blood Urea Nitrogen 10 mg/dL (9-16); Calcium 8.9 mg/dL (8.4-10.2); Carbon Dioxide 27 mmol/L (22-29); Chloride 103 mmol/L (96-108); Creatinine Clr Calc Pharmacy 106.7; Estimated Glomerular Filt Rate > 60; Glucose Random 97 mg/dL (60-115); Potassium 3.9 mmol/L (3.3-5.1); Sodium 137 mmol/L (135-145); Total Protein 6.3 g/dL (6.5-8.0)
[2022-07-10 18:23] LABS: Appearance Urine Clear; Color Urine Yellow; Glucose Urine UA Negative (Negative); Leukocyte Esterase Urine Small (1+) (Negative); Nitrite Urine Negative (Negative); PH 6.5 (5.0-9.0); Specific Gravity - Urine 1.015 (1.005-1.025); UMIC TRIGGER UACC YES; Urine Blood Moderate (2+) (Negative); Urine Ketones Negative (Negative); Urine Protein Negative (Neg-Trace)
[2022-07-10 18:35] LABS: Bacteria Urine None Seen (None Seen); Hyaline Casts Urine 0-2 /LPF (0-2); RBC Urine >20 /HPF (0-2); Squamous Epithelial Cell Urine 0-2 /HPF (0-2); UACC Culture Trigger YES; WBC Urine 0-5 /HPF (0-5)
== END 2022-07-10 19:50 | disposition home or self-care (01) ==
PROVIDERS: Nurse Practitioner Family; Emergency Provider Emergency Medicine; PCP Internal Medicine
DX: S39.012A Strain of muscle, fascia and tendon of lower back, initial encounter (principal); X58.XXXA Exposure to other specified factors, initial encounter; I10 Essential (primary) hypertension; G20 Parkinson's disease; F12.90 Cannabis use, unspecified, uncomplicated; Z91.81 History of falling; Z87.891 Personal history of nicotine dependence; Y93.9 Activity, unspecified; Y92.89 Other specified places as the place of occurrence of the external cause; Y99.9 Unspecified external cause status
CPT/HCPCS: 36415; 70450; 72131; 80053; 81001; 85025; 87086; 99284

== ENCOUNTER 2022-08-16 11:43 | Inpatient (IN) | payer MEDICARE, SELFPAY ==
--- NOTE | 2022-08-16 | ECG_ITS ---
Test Reason : Fall Blood Pressure : / mmHG Vent. Rate : 086 BPM Atrial Rate : 086 BPM P-R Int : 178 ms QRS Dur : 100 ms QT Int : 394 ms P-R-T Axes : 000 -02 118 degrees QTc Int : 471 ms Sinus rhythm with frequent , and consecutive Premature ventricular complexes Nonspecific ST and T wave abnormality Prolonged QT Abnormal ECG When compared with ECG of 21-APR-2022 18:36, Premature ventricular complexes are now Present NV interval has decreased Referred By: Generic ED Physician Electronically Signed By:AMANDA MAST
--- NOTE | ~2022-08-16 | CT_ITS ---
EXAMINATION: CT HEAD W/O IV CONTRAST CT CERVICAL SPINE W/O IV CONTRAST CLINICAL INFORMATION: Altered mental status. Patient found down. COMPARISON: 04/21/2022 and 07/10/2022. TECHNIQUE: Head - Contiguous axial imaging of the head was performed from the skull base to the vertex without the administration of intravenous contrast, and axial images are reconstructed at 2 mm and 5 mm slice thickness. Cervical spine - A volumetric, helical CT acquisition of the cervical spine was obtained without contrast; in addition to the standard set of axial images, multiplanar reformatted images were provided in the coronal and sagittal imaging planes. This CT examination was performed using dose optimization techniques as appropriate, variously including the following: *Automated exposure control *Adjustment of mA and/or kV according to patient size (this includes techniques or standardized protocols for targeted exams where dose is matched to indication/reason for exam; i.e. extremities or head) *Use of iterative reconstruction technique DLP: 1100 mGy-cm (total) FINDINGS: HEAD: No evidence of intracranial hemorrhage, major vascular territory infarction, focal mass effect or midline shift. Calvillo to white matter differentiation is preserved. There is atherosclerotic calcification of cavernous carotid arteries. Chronic mild patchy hypoattenuation within supratentorial white matter is compatible with sequela of mild microangiopathy. Mild parenchymal volume loss with commensurate prominence of ventricles and sulci; no hydrocephalus. No acute findings within the posterior fossa. The cerebellar tonsils are normal position. The calvarium is intact. There is a mucous retention cyst of the partially visualized left maxillary sinus. Otherwise, the visualized paranasal sinuses, mastoid air cells and middle ear cavities are clear. The temporomandibular joints are unremarkable. The orbits and globes are unremarkable. CERVICAL SPINE: The craniocervical junction is normal. The occipital condyles, dens and atlantodental articulation are intact. The vertebral body heights and alignment are maintained. No fractures in the anterior or posterior elements. No prevertebral soft tissue swelling. No acute abnormalities in the degenerated cervical spine. Postoperative changes from discectomy and anterior fusion at C5-C6. No osteolysis or fracture around the hardware. The bone graft is well incorporated into the vertebral endplates. [id number] discovertebral degenerative change at C4-C5 and C6-C7. The hypertrophied uncovertebral joints chronically causes varying degrees of bilateral neural foraminal stenosis at C4-C5, C5-C6 and C6-C7. No significant stenosis of the central spinal canal. No hematoma in the visualized neck. Mild centrilobular emphysema of the visualized lung apices. Thyroid gland is unremarkable. CT/CT cervical spine wo IV con IMPRESSION: * No intracranial hemorrhage or other acute intracranial pathology compared to 07/10/2022. * No fracture or malalignment in the degenerated cervical spine. * Prior discectomy and anterior fusion at C5-C6. No loosening of fusion hardware.
--- NOTE | ~2022-08-16 | XR_ITS ---
EXAMINATION: XR CHEST CLINICAL INFORMATION: Fall with elevated white blood cell count COMPARISON: 01/18/2022 TECHNIQUE: 2 views of the chest were obtained. FINDINGS: No significant abnormality is noted involving the heart, lungs, mediastinum, bony thorax or soft tissues. Again seen are postoperative changes in the cervical spine from discectomy and anterior fusion at C5-C6. XR/XR chest 2V IMPRESSION: No acute intrathoracic disease.
[2022-08-16 12:00] VITALS: BP 131/70; PULSE 77; RESP 17; TEMP 35.2; O2SAT 94; BMI 19.8
--- NOTE | 2022-08-16 12:04 | PC.NURSE ---
67 y/o M BIBA from home s/p fall, found down by [facility]NA, estimated time down about 5 hours. pt hypothermic to 95 rectal, warm blankets applied. pt undressed, on monitor, iv in place, labs drawn and sent. awaiting further recs. c-collar in place
[2022-08-16 12:17] LABS: MANUAL DIFF FLAG NO
[2022-08-16 12:18] LABS: Basophils Percent Auto 0.2 % (0-2); Hematocrit 40.4 % (42.0-52.0); Hemoglobin 13.1 g/dl (14.0-18.0); Imm Gran Abs Auto 0.05 X10*3/uL (0.00-0.03); Imm Gran Pct Auto 0.4 % (0.0-0.4); Lymphocytes Absolute Auto 0.9 X10*3/uL (1.2-4.9); Mean Corpuscular HGB Conc 32.4 g/dl (31.0-36.0); Mean Corpuscular Hemoglobin 30.5 pg (27.0-33.0); Mean Corpuscular Volume 94.2 fL (80.0-98.0); Monocytes Absolute Auto 1.5 X10*3/uL (0.1-1.2); Monocytes Percent Auto 11.2 % (2-11); Neutrophils Absolute Auto 10.8 x10*3/uL (2.0-8.3); Neutrophils Percent Auto 81.2 % (45-73); Platelet Count 357 X10*3/uL (160-400); Red Blood Count 4.29 X10*6/uL (4.60-5.80); Red Cell Distribution Width 12.9 % (11.0-16.0); White Blood Count 13.3 X10*3/uL (4.8-10.8)
--- OUTSIDE RECORDS SUMMARY | 2022-08-16 12:18 | XMS_ITS | Continuity of Care Document ---
:1955 Author Organization [facility] Address [address] [place] [address], [address] [place] [address], [address] [place] [address]- Care Team Providers Name Role Phone Staci Berger MD Primary Care Physician Encounter [facility] [place] Date(s): 06/30/22 - 07/30/22 [facility] [address] [place] [address], [facility], [address] [place] [address]- Patient Care team information Care Team PersonnelName: Staci Berger MD Position: [facility] Primary Care Physician Member Role: PCP Address: Address: [address] [place] [address] Primary [place], [place] [address] Care Team Related PersonsName: ALLI MARIN Address: home [address] [place] [address]
--- OUTSIDE RECORDS SUMMARY | 2022-08-16 12:19 | XMS_ITS ---
:1955 Author Care Team Providers Name Role Phone KAITLYN Nava Shawn Leon Primary Care Provider [phone] ROWAN ANDRE Allergies Code Code System Name [...] by ? 08/15/2019 XR, Chest, 2 View [facility] [address] [place] [address] (Work Place) Results Lab [...]
[2022-08-16 12:35] LABS: Alanine Aminotransferase 12 U/L (0-40); Albumin Level 3.7 g/dL (3.5-5.0); Alkaline Phosphatase 82 U/L (39-117); Anion Gap 13 (12-20); Aspartate Amino Transferase 50 U/L (5-37); Blood Urea Nitrogen 24 mg/dL (9-16); Calcium 8.9 mg/dL (8.4-10.2); Carbon Dioxide 25 mmol/L (22-29); Chloride 112 mmol/L (96-108); Creatinine Clr Calc Pharmacy 81.8; Estimated Glomerular Filt Rate > 60; Glucose Fasting 112 mg/dL (60-99); Lactate Dehydrogenase 259 U/L (118-273); Potassium 4.2 mmol/L (3.3-5.1); Sodium 146 mmol/L (135-145); Total Protein 6.4 g/dL (6.5-8.0)
[2022-08-16 12:56] LABS: COVID-19 Test Negative (Negative); IDNOW Serial# BCCEAD1C
[2022-08-16] MEDS: 0.9 % Sodium Chloride 1,000 ML 999 ML IV (13:15)
--- NOTE | 2022-08-16 13:18 | ED.FALL ---
HPI - Fall General Chief Complaint: Fall Stated Complaint: FALL,-LOC,+COLLAR,ON FLOOR SINCE 6 AM Time Seen by Provider: 08/16/22 12:37 Source: patient and EMS Mode of arrival: EMS Limitations: altered mental status History of Present Illness HPI Narrative: Is a 67-year-old male who has a past medical history AFib, ?Parksinson disease (reports diagnosed in 2020), HTN, multiple prior back surgeries with last one in Jul 2021 for Spinal fusion?here after a fall which occurred this morning. History of present illness is limited as the patient cannot remember what happened. He believes he may have slipped but he is unsure. He tells me he was on the ground for approximately 6 hours. Per EMS patient was found by his physical therapist to came to the home this morning. Patient has no complaint. Related Data Home Medications Medication Instructions Recorded Confirmed carbidopa 25 mg-levodopa 100 mg 1 tab PO BID@0700,1300 12/23/21 04/22/22 tablet gabapentin 100 mg capsule 200 mg PO DAILY 12/23/21 04/22/22 gabapentin 300 mg capsule 300 mg PO BEDTIME 12/23/21 04/22/22 lisinopril 10 mg tablet 10 mg PO DAILY 12/23/21 04/22/22 melatonin 3 mg tablet 3 mg PO BEDTIME PRN Sleep 12/23/21 04/22/22 amlodipine 2.5 mg tablet 1 tab PO TID 01/18/22 04/23/22 ascorbic acid (vitamin C) 500 mg 2 tab PO DAILY 04/23/22 04/23/22 tablet (Vitamin C) quetiapine 25 mg tablet 1 tab PO QID 04/23/22 04/23/22 ropinirole 0.25 mg tablet 1 tab PO BEDTIME 04/23/22 04/23/22 Previous Rx's Medication Instructions Recorded tramadol 50 mg tablet 50 mg PO Q8H PRN pain #7 tabs 07/10/22 Allergies Allergy/AdvReac Type Severity Reaction Status Date / Time No Known Allergies Allergy Verified 12/16/21 02:35 Review of Systems Review of Systems: Yes all other systems are reviewed and are negative Constitutional: Constitutional: Reports no additional constitutional complaints, Denies body ache(s), Denies chills, Denies fever(s), Denies headache(s) and Denies weakness Eyes: Eyes: Reports no additional eye complaints and Denies change in vision ENT: Reports system reviewed and no additional complaints, except as documented, Denies dizziness, Denies headache(s), Denies nasal congestion, Denies nasal discharge and Denies neck pain Cardiovascular: Cardiovascular: Reports no additional cardiovascular complaints, Denies chest pain, Denies leg edema and Denies dyspnea Respiratory: Respiratory: Reports no additional respiratory complaints, Denies cough and Denies dyspnea Gastrointestinal: Gastrointestinal: Reports no additional gastrointestinal complaints, Denies abdominal pain, Denies diarrhea, Denies nausea and Denies vomiting Genitourinary: Genitourinary: Denies urinary incontinence Musculoskeletal: Musculoskeletal: Reports no additional musculoskeletal complaints, Denies back pain, Denies arthralgias, Denies joint swelling, Denies neck pain, Denies numbness and Denies tingling Integumentary/Breasts: Skin/Breast: Reports system reviewed and no additional complaints, except as docu and Denies rash Neurologic: Reports system reviewed and no additional complaints, except as documented, Denies Abnormal speech present, Denies dizziness, Denies headache(s), Denies numbness, Denies tingling and Denies weakness PMFSH Past Medical History Attestation statement: The following information was validated with the patient. Source: old records reviewed and nursing notes reviewed Medical History HTN (hypertension) Parkinson disease Surgical History H/O spinal fusion Family History Family History Mother CAD (coronary artery disease) Social History Social History Household Members: Spouse Housing: Homeless Unable to assess alcohol history related to: Unknown Alcohol intake: former Patient Tobacco Use Status: Former Tobacco user Smoked in Last 30 Days: No Use of substances other than those prescribed or required for medical reasons: No Substance Use Type: Marijuana Advance Directives: Yes Advance Directives on File: Yes Advance Directives Date on File: 12/27/21 Physical Exam Vital Signs: Vital Signs: Last Vital Signs Temp 98.8 F 08/16/22 16:20 Pulse 99 08/16/22 16:20 Resp 19 08/16/22 16:20 BP 129/71 08/16/22 16:20 Pulse Ox 99 08/16/22 16:20 O2 Del Method 08/16/22 16:20 BMI result Body Mass Index 19.8 Const: General: cooperative, healthy appearing, comfortable and no acute distress Orientation/consciousness: oriented to person, oriented to place and oriented to time Limitations: no limitations HEENT: Head: Yes normal to inspection and No Davalos's sign Ears: hearing grossly normal bilaterally and TM's normal bilaterally General nose exam: Normal external nose present Face and sinus: Yes normal facial exam Mouth: Normal oral and palatal mucosa present Throat: Yes posterior oropharynx normal Eyes: General: appearance normal, both eyes and all related structures Pupils: Equal, round and reactive pupils present Neck: Other: Unable to assess range of motion as cervical collar is in place Neck: Yes normal visual inspection Chest: Chest palpation & inspection: normal inspection of the chest Resp: Effort & Inspection: normal respiratory effort Auscultation: clear to auscultation bilaterally Cardio: Rate: regular rate Rhythm: regular rhythm Peripheral pulses: Peripheral pulses 2+ throughout GI: Inspection: Yes normal to inspection Palpation (GI): Soft to palpation and nontender Auscultation: normal bowel sounds Back/Spine/Pelvis: Thoracic/Lumbar Spine: thoracic and lumbar spine normal to inspection Skin: General skin exam: no rashes or lesions noted Neuro: General: oriented to person, oriented to place, oriented to time, moves all extremities and Unable to assess gait Cranial nerves: Yes CN's II-XII intact bilaterally, Yes Equal, round and reactive pupils present, Yes Bilaterally intact EOM present, Yes Nystagmus not present, Yes Normal facial strength present and Yes Midline tongue present Cognition (Neuro): normal cognition Speech: No Abnormal speech present Gait exam (Neuro): Unable to assess gait Extrem: General: Yes normal to inspection Course Reevaluation(s) Reevaluation #1: Labs show mild hypernatremia, elevated CPK. Patient will receive IV fluids and will trend. Patient with initial temperature of 95 degrees. Patient receiving warm blankets, warm fluids. Will monitor Medications Administered Discontinued Medications Generic Name Dose Route Start Last Admin Trade Name Freq PRN Reason Stop Dose Admin Sodium Chloride 1,000 mls @ 999 mls/hr 08/16/22 13:03 08/16/22 14:42 Ns IV 08/16/22 14:03 Infused .Q1H1M STA Infusion Metoprolol Succinate 25 mg 08/16/22 16:05 08/16/22 16:15 Metoprolol Succinate Er 25 Mg Tab.Er.24h PO 08/16/22 16:06 25 mg ONCE ONE Administration Protocol Metoprolol Tartrate 5 mg 08/16/22 16:05 08/16/22 16:15 Metoprolol Tartrate 5 Mg/5 Ml Vial IVPUSH 08/16/22 16:06 5 mg ONCE ONE Administration Medical Decision Making Medical Decision Making [facility] Narrative: 67-year-old male who comes from home who had a fall from an unknown cause with a down time of approximately 6 hours who presents to the emergency room alert and oriented x3 but unable to recall what happened today and unable to answer some questions. He is able to move all extremities with no difficulty. Neuro exam is otherwise normal. His vitals are stable. His lungs are clear. He presents in a cervical collar. Will obtain labs, EKG, CT head and cervical spine, chest x-ray, urine testing, toxicology report. Differential Diagnosis Differential Diagnoses: The differential diagnosis associated with the presentation includes Electrolyte abnormality, ACS, ICH, anemia Admission/Observation Consideration of admission/observation: Escalation of care including admission/observation considered Patient with mildly elevated CPK 1400. Preserved renal function. Patient with underlying congestive heart failure with EF of 35% on last echocardiogram. Patient gently hydrated. Consider admission for continued hydration. Will discuss with hospitalist. Patient also went into rapid AFib with RVR with rates of 140. Patient did not take his morning medications. Patient also has likely mild dehydration. Patient received his daily dose of metoprolol and 5 mg of Lopressor with heart rate now 90s. Indeterminate troponin 29. Likely secondary to rate/mild rhabdo and not from ischemia. Consult Healthcare Provider Management of the patient was discussed with: Hospitalist Spoke to Dr. Bermeo who accepted admission of patient Lab Data [facility] Lab Attestation statement: I reviewed the patient's lab results. Result Diagrams: 08/16/22 12:08 08/16/22 12:08 Labs: Lab Results 08/16/22 08/16/22 08/16/22 Range/Units 12:08 12:08 12:08 WBC 13.3 H (4.8-10.8) X10*3/uL RBC 4.29 L (4.60-5.80) X10*6/uL Hgb 13.1 L (14.0-18.0) g/dl Hct 40.4 L (42.0-52.0) % MCV 94.2 (80.0-98.0) fL MCH 30.5 (27.0-33.0) pg MCHC 32.4 (31.0-36.0) g/dl RDW 12.9 (11.0-16.0) % Plt Count 357 (160-400) X10*3/uL MPV 9.0 L (9.4-12.4) fL Immature Gran % (Auto) 0.4 (0.0-0.4) % Neut % (Auto) 81.2 H (45-73) % Lymph % (Auto) 7.0 L (20-40) % Starke % (Auto) 11.2 H (2-11) % Eos % (Auto) 0.0 (0-4) % Baso % (Auto) 0.2 (0-2) % Lymph # (Auto) 0.9 L (1.2-4.9) X10*3/uL Starke # (Auto) 1.5 H (0.1-1.2) X10*3/uL Eos # (Auto) 0.0 (0.0-0.4) X10*3/uL Baso # (Auto) 0.0 (0.0-0.2) X10*3/uL Abs Immat Gran (auto) 0.05 H (0.00-0.03) X10*3/uL Absolute Neuts (auto) 10.8 H (2.0-8.3) x10*3/uL Absolute Nucleated RBC 0.000 (0.0-0.012) X10*3/uL Nucleated RBC % (auto) 0.0 (0.0-0.2) /100WBC Sodium 146 H (135-145) mmol/L Potassium 4.2 (3.3-5.1) mmol/L Chloride 112 H (96-108) mmol/L Carbon Dioxide 25 (22-29) mmol/L Anion Gap 13 (12-20) BUN 24 H (9-16) mg/dL Creatinine 0.72 (0.5-1.4) mg/dL Estim Creat Clear Calc 81.8 Estimated GFR > 60 Fasting Glucose 112 H (60-99) mg/dL Calcium 8.9 (8.4-10.2) mg/dL Magnesium (1.6-2.6) mg/dL Total Bilirubin 1.0 (0.0-1.0) mg/dL AST 50 H (5-37) U/L ALT 12 (0-40) U/L Alkaline Phosphatase 82 (39-117) U/L Lactate Dehydrogenase 259 (118-273) U/L Total Creatine Kinase 1407 H (38-174) U/L Troponin I High Sens 29.0 D (<3.5-35.0) ng/L Total Protein 6.4 L (6.5-8.0) g/dL Albumin 3.7 (3.5-5.0) g/dL COVID-19 (MIR) (Negative) COVID-19 Clin Com 08/16/22 08/16/22 Range/Units 12:32 16:30 WBC (4.8-10.8) X10*3/uL RBC (4.60-5.80) X10*6/uL Hgb (14.0-18.0) g/dl Hct (42.0-52.0) % MCV (80.0-98.0) fL MCH (27.0-33.0) pg MCHC (31.0-36.0) g/dl RDW (11.0-16.0) % Plt Count (160-400) X10*3/uL MPV (9.4-12.4) fL Immature Gran % (Auto) (0.0-0.4) % Neut % (Auto) (45-73) % Lymph % (Auto) (20-40) % Starke % (Auto) (2-11) % Eos % (Auto) (0-4) % Baso % (Auto) (0-2) % Lymph # (Auto) (1.2-4.9) X10*3/uL Starke # (Auto) (0.1-1.2) X10*3/uL Eos # (Auto) (0.0-0.4) X10*3/uL Baso # (Auto) (0.0-0.2) X10*3/uL Abs Immat Gran (auto) (0.00-0.03) X10*3/uL Absolute Neuts (auto) (2.0-8.3) x10*3/uL Absolute Nucleated RBC (0.0-0.012) X10*3/uL Nucleated RBC % (auto) (0.0-0.2) /100WBC Sodium (135-145) mmol/L Potassium (3.3-5.1) mmol/L Chloride (96-108) mmol/L Carbon Dioxide (22-29) mmol/L Anion Gap (12-20) BUN (9-16) mg/dL Creatinine (0.5-1.4) mg/dL Estim Creat Clear Calc Estimated GFR Fasting Glucose (60-99) mg/dL Calcium (8.4-10.2) mg/dL Magnesium 2.2 (1.6-2.6) mg/dL Total Bilirubin (0.0-1.0) mg/dL AST (5-37) U/L ALT (0-40) U/L Alkaline Phosphatase (39-117) U/L Lactate Dehydrogenase (118-273) U/L Total Creatine Kinase 1045 H (38-174) U/L Troponin I High Sens (<3.5-35.0) ng/L Total Protein (6.5-8.0) g/dL Albumin (3.5-5.0) g/dL COVID-19 (MIR) Negative (Negative) COVID-19 Clin Com See Note Independent Interpretation I performed an independent interpretation of an: EKG, Plain X-Ray (I independently reviewed the x-ray which shows no acute finding) and CT Scan (Independently reviewed the CT head and cervical spine which shows no acute finding) Interpretation: I independently reviewed the EKG which shows AFib with rate of 74, normal QRS, normal QT Radiology Impression Discussion of test interpretation with radiology: I have reviewed the radiologist's reading. Radiologist Impression: [address] [address] XRay Report Signed Patient: David Julio MR#: [id number] : 1955 Acct:[id number] Age/Sex: 67 / M ADM Date: 08/16/22 Loc: HO.ED Attending Dr: Ordering Physician: Britany Fonseca NP Date of Service: 08/16/22 Procedure(s): XR chest 2V Accession Number(s): [id number] cc: Britany Fonseca NP~ EXAMINATION: XR CHEST CLINICAL INFORMATION: Fall with elevated white blood cell count COMPARISON: 01/18/2022 TECHNIQUE: 2 views of the chest were obtained. FINDINGS: No significant abnormality is noted involving the heart, lungs, mediastinum, bony thorax or soft tissues. Again seen are postoperative changes in the cervical spine from discectomy and anterior fusion at C5-C6. XR/XR chest 2V IMPRESSION: No acute intrathoracic disease. ? FINDINGS: HEAD: No evidence of intracranial hemorrhage, major vascular territory infarction, focal mass effect or midline shift. Calvillo to white matter differentiation is preserved. There is atherosclerotic calcification of cavernous carotid arteries. Chronic mild patchy hypoattenuation within supratentorial white matter is compatible with sequela of mild microangiopathy. Mild parenchymal volume loss with commensurate prominence of ventricles and sulci; no hydrocephalus. No acute findings within the posterior fossa. The cerebellar tonsils are normal position. The calvarium is intact. There is a mucous retention cyst of the partially visualized left maxillary sinus. Otherwise, the visualized paranasal sinuses, mastoid air cells and middle ear cavities are clear. The temporomandibular joints are unremarkable. The orbits and globes are unremarkable. CERVICAL SPINE: The craniocervical junction is normal. The occipital condyles, dens and atlantodental articulation are intact. The vertebral body heights and alignment are maintained.? No fractures in the anterior or posterior elements. No prevertebral soft tissue swelling. No acute abnormalities in the degenerated cervical spine. Postoperative changes from discectomy and anterior fusion at C5-C6. No osteolysis or fracture around the hardware. The bone graft is well incorporated into the vertebral endplates. [id number] discovertebral degenerative change at C4-C5 and C6-C7. The hypertrophied uncovertebral joints chronically causes varying degrees of bilateral neural foraminal stenosis at C4-C5, C5-C6 and C6-C7. No significant stenosis of the central spinal canal. No hematoma in the visualized neck. Mild centrilobular emphysema of the visualized lung apices. Thyroid gland is unremarkable. CT/CT cervical spine wo IV con IMPRESSION: *? No intracranial hemorrhage or other acute intracranial pathology compared to 07/10/2022. *? No fracture or malalignment in the degenerated cervical spine. *? Prior discectomy and anterior fusion at C5-C6. No loosening of fusion hardware. ? Independent Historian Clinical information obtained from an independent historian. History obtained from or confirmed by: Other (caregiver) Discharge Plan Discharge Clinical Impression: Atrial fibrillation with rapid ventricular response, Rhabdomyolysis Patient Disposition: Admitted As Inpatient
[2022-08-16 15:08] VITALS: BP 135/66; PULSE 114; RESP 20; TEMP 37.2; O2SAT 97
--- NOTE | 2022-08-16 15:42 | PC.NURSE ---
patient resting comfortably in bed, noted to be in afib, pt with hx of afib, MD made aware, no further orders. awaiting d/c plan
--- NOTE | 2022-08-16 15:56 | PC.NURSE ---
attempted to call patients sharmila Felder ([phone]) for medication rec however she was unavailable.
[2022-08-16] MEDS: Metoprolol Tartrate 5 MG/5 ML VIAL IVPUSH (16:15)
[2022-08-16] MEDS: Metoprolol Succinate ER 25 MG TAB.ER.24H PO (16:15)
[2022-08-16 16:20] VITALS: BP 129/71; PULSE 99; RESP 19; TEMP 37.1; O2SAT 99
[2022-08-16 17:39] LABS: Magnesium 2.2 mg/dL (1.6-2.6)
--- NOTE | 2022-08-16 18:21 | PM.IMHP ---
History of Present Illness Date of Service: 08/16/22 Attending physician on admission: Daya Bermeo Chief Complaint: fall, weakness 67-year-old male with history of Parkinson's disease on Sinemet, hypertension, atrial fibrillation not on anticoagulation, heart failure with reduced ejection fraction of 35%, hyperlipidemia, and history of multiple back surgeries presented to the ED earlier today via EMS for evaluation of a fall which occurred around 06:00. The patient does not recall the details surrounding the fall but states that he was on the ground for 6 hours for he was found by his physical therapist who called 911. He was able to tell me the names of the officers who assisted him off of the ground and is oriented x3. He tells me he currently has a headache, feeling fatigued, and weak. He also had an episode of urinary incontinence in the ED which is not his baseline and states that he has had increased urinary frequency for several weeks. He states that for the last several days he has felt unsteady on his feet and has had several falls, most recently last in which he fell and hit his shoulder. Denies any other urinary complaints including dysuria, hematuria, decreased urinary output. No fevers, chills. Denies any recent illness. No history seizures. On arrival VSS. However, patient convert to afib with rvr with rates into the 140s while in the ED. EKG confirmed afib with rate 114, no ST/T-wave abnormalities consistent with acute ischemia. There is also a nonsustained V-tach of 5 beats with rate of 160. Given 5 mg push Lopressor and PO metroprolol PO with rate controlled in 90s. Troponin 29. Mild leukocytosis of 13.3, likely reactive. Stable normocytic anemia with H/ H 13.1/40 %. Renal function baseline with creatinine 0.72. Mild hypernatremia 146, potassium 4.2, chloride 112, CO2 25, magnesium 2.2. initial CPK 1407. Given 1 L IV NS improvement in CPK to 1045. CXR unremarkable. Head and cervical spine CT negative for any acute intracranial hemorrhage or other acute intracranial pathology, fracture or malalignment in the cervical spine, s/p diskectomy and anterior fusion at C5-C6. Negative for COVID 19. Review of Systems Review of Systems: General: +fatigue, +generalized weakness. No fevers, malaise, unintentional weight loss HEENT: No blurred vision, diplopia. No sore throat, nasal congestion, rhinorrhea, sinus pain, ear pain Cardiovascular: No chest pain, palpitations, or leg edema Respiratory: No shortness of breath, wheezing, cough GI: No abdominal pain, nausea, vomiting, diarrhea, constipation, melena, hematochezia : +urinary incontinence. +increased urinary frequency. No dysuria, hematuria, decreased urinary output MSK: No myalgia, back pain Neuro: No headaches, weakness, paresthesias Skin: No rashes or lesions [facility] Medical History (Updated 08/16/22 @ 18:36 by YOMAIRA Flanagan) Atrial fibrillation with rapid ventricular response Cardiomyopathy CHF (congestive heart failure) HTN (hypertension) Parkinson disease Family History Mother CAD (coronary artery disease) Surgical History H/O spinal fusion Social History Household Members: Spouse Housing: Homeless Unable to assess alcohol history related to: Unknown Alcohol intake: former Patient Tobacco Use Status: Former Tobacco user Smoked in Last 30 Days: No Use of substances other than those prescribed or required for medical reasons: No Substance Use Type: Marijuana Advance Directives: Yes Advance Directives on File: Yes Advance Directives Date on File: 12/27/21 Meds Allergies Allergy/AdvReac Type Severity Reaction Status Date / Time No Known Allergies Allergy Verified 12/16/21 02:35 Active Medications: Current Medications Acetaminophen (Acetaminophen 325 Mg Tablet) 650 mg PO Q6H PRN PRN Reason: Pain, Mild (Pain Scale 1-3) Docusate Sodium (Docusate Sodium 100 Mg Capsule) 100 mg PO DAILY PRN PRN Reason: Constipation Enoxaparin Sodium (Enoxaparin Sodium 40 Mg/0.4 Ml Syringe) 40 mg SUBCUT Q24H STEPH Ondansetron HCl (Ondansetron Hcl 4 Mg/2 Ml Vial) 4 mg IVPUSH Q8H PRN PRN Reason: Nausea and Vomiting Pharmacy Consult (Consult Rx Perform Med Rec) 1 each MISCELLANE ONCE PRN PRN Reason: Consult order Sodium Chloride (0.9 % Sodium Chloride Flush 3 Ml Syringe) [facility] Medications Medication Instructions Recorded Confirmed Last Taken Type carbidopa 25 mg-levodopa 100 mg 1 tab PO BID@0700,1300 12/23/21 08/16/22 12/23/21 History tablet gabapentin 100 mg capsule 200 mg PO DAILY 12/23/21 08/16/22 12/23/21 History gabapentin 300 mg capsule 300 mg PO BEDTIME 12/23/21 08/16/22 12/22/21 History lisinopril 10 mg tablet 10 mg PO DAILY 12/23/21 08/16/22 12/23/21 History melatonin 3 mg tablet 3 mg PO BEDTIME PRN Sleep 12/23/21 08/16/22 Unknown History amlodipine 2.5 mg tablet 1 tab PO TID 01/18/22 08/16/22 Unknown History ropinirole 0.25 mg tablet 1 tab PO BEDTIME 04/23/22 08/16/22 Unknown History acetaminophen 650 mg 1 tab PO Q8H PRN pain 08/16/22 08/16/22 Unknown History tablet,extended release metoprolol succinate 25 mg 0.5 tab PO DAILY 08/16/22 08/16/22 Unknown History tablet,extended release 24 hr Physical Exam Vital Signs and Narrative: Vital Signs: Last Vital Signs Temp 98.8 F 08/16/22 16:20 Pulse 99 08/16/22 16:20 Resp 19 08/16/22 16:20 BP 129/71 08/16/22 16:20 Pulse Ox 99 08/16/22 16:20 O2 Del Method 08/16/22 16:20 BMI result Body Mass Index 19.8 Constitutional - Awake and Alert, No apparent distress Eyes - PERRLA, EOMI Cardiovascular - S1S2, RRR, No edema Respiratory - Normal lung expansion, Normal respiratory effort, No respiratory distress, CTA bilaterally Gastrointestinal - NT / ND; +BS; No rebound or guarding - No CVA tenderness Extremities - no calf tenderness bilaterally, no swelling Skin - Warm/Dry Neurological - Alert & oriented x3, global bradykinesia, CN II-XII in tact, 4/5 strength BUE and BLE Psychological - flat affect Results Labs CBC and Chem 7: 08/16/22 12:08 08/16/22 12:08 Labs: Laboratory Results - last 24 hr 08/16/22 08/16/22 08/16/22 12:08 12:08 12:08 MCV 94.2 MCH 30.5 MCHC 32.4 RDW 12.9 Plt Count 357 MPV 9.0 L Immature Gran % (Auto) 0.4 Neut % (Auto) 81.2 H Lymph % (Auto) 7.0 L Piute % (Auto) 11.2 H Eos % (Auto) 0.0 Baso % (Auto) 0.2 Lymph # (Auto) 0.9 L [place] # (Auto) 1.5 H Eos # (Auto) 0.0 Baso # (Auto) 0.0 Abs Immat Gran (auto) 0.05 H Absolute Neuts (auto) 10.8 H Absolute Nucleated RBC 0.000 Nucleated RBC % (auto) 0.0 Anion Gap 13 Estim Creat Clear Calc 81.8 Estimated GFR > 60 Fasting Glucose 112 H Calcium 8.9 Magnesium Total Bilirubin 1.0 AST 50 H ALT 12 Alkaline Phosphatase 82 Lactate Dehydrogenase 259 Total Creatine Kinase 1407 H Troponin I High Sens 29.0 D Total Protein 6.4 L Albumin 3.7 COVID-19 (MIR) COVID-19 [place]var 08/16/22 08/16/22 12:32 16:30 MCV MCH MCHC RDW Plt Count MPV Immature Gran % (Auto) Neut % (Auto) Lymph % (Auto) Piute % (Auto) Eos % (Auto) Baso % (Auto) Lymph # (Auto) Piute # (Auto) Eos # (Auto) Baso # (Auto) Abs Immat Gran (auto) Absolute Neuts (auto) Absolute Nucleated RBC Nucleated RBC % (auto) Anion Gap Estim Creat Clear Calc Estimated GFR Fasting Glucose Calcium Magnesium 2.2 Total Bilirubin AST ALT Alkaline Phosphatase Lactate Dehydrogenase Total Creatine Kinase 1045 H Troponin I High Sens Total Protein Albumin COVID-19 (MIR) Negative COVID-19 Clin Com See Note Imaging Radiologist's Impressions: Impressions Cervical Spine CT 08/16/22 14:34 IMPRESSION: * No intracranial hemorrhage or other acute intracranial pathology compared to 07/10/2022. * No fracture or malalignment in the degenerated cervical spine. * Prior discectomy and anterior fusion at C5-C6. No loosening of fusion hardware. Head CT 08/16/22 14:34 IMPRESSION: * No intracranial hemorrhage or other acute intracranial pathology compared to 07/10/2022. * No fracture or malalignment in the degenerated cervical spine. * Prior discectomy and anterior fusion at C5-C6. No loosening of fusion hardware. Chest X-Ray 08/16/22 16:50 IMPRESSION: No acute intrathoracic disease. Assessment and Plan (1) Atrial fibrillation with rapid ventricular response: Status: Acute (2) Fall: Status: Acute Plan 67-year-old male with history of Parkinson's disease on Sinemet, hypertension, atrial fibrillation not on anticoagulation, heart failure with reduced ejection fraction of 35%, hyperlipidemia, and history of multiple back surgeries admitted for fall with weakness and afib with rvr. #Multiple falls with generalized weakness -Head and cervical spine CT negative for acute intracranial abnormality, fracture, subluxation. -Patient oriented x 3 but does not recall details of fall except was on the ground for several hours. -Review of chart states patient falls at least once daily, but he states this is new last week or so -Elevated CPK, repeat improved to 1045 -Given 1L IVF bolus. Hold on addl IVF given hx HFrEF, encourage PO hydration -Utox pending -Repeat CPK in am -PT eval #NSVT -Noted on telemetry for 13 beats -K and Mag normal -Admit to telemetry -Continue BB -Monitor lytes #Leukocytosis 13.3 -Likely reactive following fall -However, UA/UC pending Given increased urinary frequency and urinary incontinence. CXR reviewed and negative -Follow CBC. #Afib with RVR- rate now controlled -Given 5mg push lopressor -Continue scheduled rate control -Not on anticoagulation- ?due to falls -Admit to telemetry #Parkinson's disease - continue Sinemet, ropinirole # hypertension -reasonably controlled - continue home meds #HFrEF with EF 35-40% -No acute exacerbation DVT prophylaxis- lovenox Full code Healthcare proxy- partner, Meena Handley. Attempt made to call HCP without answer. Message left patient requires inpatient stay of at least 2 midnights for management of recurrent falls, generalized weakness with AFib RVR requiring close cardiac monitoring, monitoring of electrolytes, PT evaluation, and possible placement to STIR. Time Spent With Patient Time: Total time managing care of this patient today ____ minutes. Quality Stroke Does the patient have a stroke diagnosis?: No VTE Prior VTE?: No VTE Risk Level:: Medical - moderate - high VTE Device Contraindication: Treatment Not Indicated VTE Drug Contraindication: N/A - Med Ordered
--- NOTE | 2022-08-16 18:30 | PC.NURSE ---
patient straight cathed for urine and sent, awaiting inpt bed, VSS at this time, resting comfortably in bed
--- OUTSIDE RECORDS SUMMARY | 2022-08-16 18:30 | XMS_ITS ---
:1955 Author Care Team Providers Name Role Phone KAITLYN Nava Shawn Leon Primary Care Provider [phone] ROWAN ANDRE Allergies Code Code System Name [...] by ? 08/15/2019 XR, Chest, 2 View [facility] [address] [place] [address] (Work Place) Results Lab [...]
[2022-08-16 18:34] LABS: Appearance Urine Clear; Color Urine Dark Yellow; Glucose Urine UA Negative (Negative); Leukocyte Esterase Urine Negative (Negative); Nitrite Urine Negative (Negative); PH 5.5 (5.0-9.0); Specific Gravity - Urine >= 1.030 (1.005-1.025); UMIC TRIGGER UACC YES; Urine Blood Negative (Negative); Urine Ketones Trace mg/dL (Negative); Urine Protein 30 (1+) mg/dL (Neg-Trace)
--- NOTE | 2022-08-16 18:42 | PHA.MEDREC ---
Pharmacy Consult ? Medication Reconciliation Pharmacy has completed the medication reconciliation. Spoke with patient who was able to recognize all the names. Spoke with patient's partner Meena who could confirm the names of the medications, but unsure on some of the directions. Emerita will call back when she is home from work to confirm if any discrepancies when she has a list in her hand. Deb Arrington, PharmD
--- NOTE | 2022-08-16 18:44 | PM.EVENT ---
Event Note Date of Service: 08/16/22 Event Note: Addendum to history and physical by the advanced practice provider, YOMAIRA Garcia I interviewed and examined the patient. I discussed their presentation and management with the MARGIE. I reviewed the history and physical and agree with the documentation, with the following additions and corrections: 67yo M with PD, HTN, AF no on AC, HFrEF (35%) presents after found by PT on ground, estimated down 6 hr, after unwitnessed fall. Pt denies LOC. Mild rhabdo with CPK 1407. AF 140s -> given 5 mg IV metoprolol, now rate in 90s. On exam, NAD, irregularly irregular heart, no signs of trauma, bradykinesia evident Plan admit to hospital on observation, monitor CPK [PO hydration given CPK already down to 1045 and hx HF], continue metoprolol for rate contrl, PT eval. Time Spent With Patient Time: Total time managing care of this patient today ____ minutes.
[2022-08-16 18:47] LABS: Bacteria Urine None Seen (None Seen); Hyaline Casts Urine 0-2 /LPF (0-2); RBC Urine 0-2 /HPF (0-2); Squamous Epithelial Cell Urine 0-2 /HPF (0-2); WBC Urine 0-5 /HPF (0-5)
[2022-08-16 18:53] LABS: Amphetamine Screen Urine Not Detected (Not Detect); Barbiturates, Urine Not Detected (Not Detect); Benzodiazepines Screen Urine Not Detected (Not Detect); Cannabinoid Screen Urine Not Detected (Not Detect); Cocaine Screen Urine Not Detected (Not Detect); Fentanyl, urine Not Detected (Not Detect); Opiate Screen Urine Not Detected (Not Detect); Phencyclidine Screen Urine Not Detected (Not Detect)
[2022-08-16 19:07] VITALS: BP 106/70; PULSE 104; RESP 19; TEMP 36.6; O2SAT 97
[2022-08-16] MEDS: Enoxaparin Sodium 40 MG/0.4 ML SYRINGE SUBCUT (19:36)
--- NOTE | 2022-08-16 20:49 | PC.NURSE ---
pt hr up to 140 w run of PVCs after moving from stretcher to hospital bed, hr going from 80/90s - 130/140s, provider aware. no new orders at this time.
[2022-08-16] MEDS: amLODIPine Besylate 2.5 MG TABLET PO (22:58)
[2022-08-16] MEDS: rOPINIRole HCL 0.25 MG TABLET PO (22:58)
[2022-08-16] MEDS: Gabapentin 300 MG CAPSULE PO (22:58)
--- NOTE | 2022-08-16 23:01 | PC.NURSE ---
2100 meds late due to arrival of high needs pt in overflow, medicated per provider order, pt requiring reorientation to location but oriented to person and date. pt pulled off condom cath, bedding dry. hr continues to be between 80-140, provider aware.
[2022-08-16 23:32] VITALS: BP 130/69; PULSE 105; RESP 20; TEMP 36.9; O2SAT 97
[2022-08-16] MEDS: Acetaminophen 325 MG TABLET 650 MG PO (23:52)
--- NOTE | 2022-08-16 23:56 | PC.NURSE ---
assumed care for pt. Pt CHING x 3 reports chronic 7/10 back pain x 1 month takes tylenol at home provides mod relief. RN administered tylenol po per oct. pt calm and cooperative at this time. Urinal placed at pt beside per his request. Pt reports he uses a WC at home.
--- NOTE | 2022-08-17 | ECG_ITS ---
Test Reason : tachycardia Blood Pressure : / mmHG Vent. Rate : 082 BPM Atrial Rate : 082 BPM P-R Int : 184 ms QRS Dur : 102 ms QT Int : 386 ms P-R-T Axes : 037 -01 067 degrees QTc Int : 450 ms Sinus rhythm with Premature atrial complexes Abnormal ECG When compared with ECG of 16-AUG-2022 13:13, Premature ventricular complexes are no longer Present Premature atrial complexes are now Present Referred By: Cristy Spangler Electronically Signed By:AMANDA MAST
--- NOTE | 2022-08-17 00:32 | PC.NURSE ---
Dorita certified bench jeweler technician received call from ICU they report pt residential monitor shows bigeminy with sinus tach. Previous ekg sinus rhythm with frequent and consecutive pvcs. Hospitalist Dr. Medrano notified via cortext. Okay per Dr. Medrano. No new orders at this time.
[2022-08-17] MEDS: Melatonin 3 MG TABLET PO ×2 (00:43→20:18)
[2022-08-17 05:59] VITALS: BP 128/59; PULSE 115; RESP 19; TEMP 36.9; O2SAT 96
[2022-08-17 07:35] LABS: Alanine Aminotransferase 28 U/L (0-40); Albumin Level 3.4 g/dL (3.5-5.0); Alkaline Phosphatase 67 U/L (39-117); Anion Gap 13 (12-20); Aspartate Amino Transferase 42 U/L (5-37); Bilirubin Total 0.6 mg/dL (0.0-1.0); Blood Urea Nitrogen 20 mg/dL (9-16); Calcium 8.4 mg/dL (8.4-10.2); Carbon Dioxide 25 mmol/L (22-29); Chloride 113 mmol/L (96-108); Creatinine Clr Calc Pharmacy 95.1; Estimated Glomerular Filt Rate > 60; Glucose Random 80 mg/dL (60-115); Magnesium 2.2 mg/dL (1.6-2.6); Sodium 147 mmol/L (135-145); Total Protein 5.8 g/dL (6.5-8.0)
[2022-08-17 08:01] VITALS: BP 102/51; PULSE 100; RESP 24; TEMP 36.8; O2SAT 95
[2022-08-17 08:28] VITALS: BP 102/51; PULSE 137; O2SAT 95
--- NOTE | 2022-08-17 09:19 | MHC.EDTECH ---
cleaned patient, changed patients bedding and gown. Assisted patient from bed to commode and back to bed. Meaghan Escobar
--- NOTE | 2022-08-17 10:12 | P.PNIM_ITS ---
Subjective Subjective Date of Service: 08/19/22 Interval History: Follow up falls, NSVT denies chest pain, sob, nausea or vomiting no pain Review of Systems still running tachy back pain seems improivng Physical Exam Vital Signs: Vital Signs: Last Vital Signs Temp 98.3 F 08/17/22 08:01 Pulse 137 H 08/17/22 08:28 Resp 24 H 08/17/22 08:01 BP 102/51 L 08/17/22 08:28 Pulse Ox 95 08/17/22 08:28 O2 Del Method 08/17/22 08:01 BMI result Body Mass Index 19.8 Appearing in no acute distress lung sounds are clear to auscultation heart regular rate rhythm, clear S1, S2 positive bowel sounds, abdomen is soft, nontender neuro patient is alert x3, no focal deficits Left knee open wound with yellow drainage Objective Data Active Medications Acetaminophen (Acetaminophen 325 Mg Tablet) 650 mg PO Q6H PRN PRN Reason: Pain, Mild (Pain Scale 1-3) Last Admin: 08/16/22 23:52 Dose: 650 mg Documented By: YURY Amlodipine Besylate (Amlodipine Besylate 2.5 Mg Tablet) 2.5 mg PO TID [facility]; Protocol Last Admin: 08/16/22 22:58 Dose: 2.5 mg Documented By: CASSI Carbidopa/Levodopa (Carbidopa/Levodopa 25/100 Tablet) 1 tab PO BID@0700,1300 [facility] Docusate Sodium (Docusate Sodium 100 Mg Capsule) 100 mg PO DAILY PRN PRN Reason: Constipation Enoxaparin Sodium (Enoxaparin Sodium 40 Mg/0.4 Ml Syringe) 40 mg SUBCUT Q24H [facility] Last Admin: 08/16/22 19:36 Dose: 40 mg Documented By: LELA Gabapentin (Gabapentin 100 Mg Capsule) 200 mg PO DAILY [facility] Gabapentin (Gabapentin 300 Mg Capsule) 300 mg PO BEDTIME [facility] Last Admin: 08/16/22 22:58 Dose: 300 mg Documented By: CASSI Sodium Chloride (Ns) 1,000 mls @ 100 mls/hr IVCONT .Q10H [facility] Lisinopril (Lisinopril 10 Mg Tablet) 10 mg PO DAILY [facility]; Protocol Melatonin (Melatonin 3 Mg Tablet) 3 mg PO BEDTIME PRN PRN Reason: Sleep Last Admin: 08/17/22 00:43 Dose: 3 mg Documented By: YURY Metoprolol Succinate (Metoprolol Succinate Er 12.5 Mg Halftab.Er.24h) 12.5 mg PO BEDTIME [facility]; Protocol Ondansetron HCl (Ondansetron Hcl 4 Mg/2 Ml Vial) 4 mg IVPUSH Q8H PRN PRN Reason: Nausea and Vomiting Pharmacy Consult (Consult Rx Perform Med Rec) 1 each MISCELLANE ONCE PRN PRN Reason: Consult order Ropinirole HCl (Ropinirole Hcl 0.25 Mg Tablet) 0.25 mg PO BEDTIME [facility] Last Admin: 08/16/22 22:58 Dose: 0.25 mg Documented By: MADDENHussein Sodium Chloride (0.9 % Sodium Chloride Flush 3 Ml Syringe) 3 ml IVFLUSH QSHIFT [facility] Last Admin: 08/16/22 23:48 Dose: Not Given Documented By: YURY Non-Admin Reason: Med Not Available Labs 08/16/22 12:08 08/18/22 04:17 Labs: Laboratory Results - last 24 hr 08/16/22 08/16/22 08/16/22 12:08 12:08 12:08 MCV 94.2 MCH 30.5 MCHC 32.4 RDW 12.9 Plt Count 357 MPV 9.0 L Immature Gran % (Auto) 0.4 Neut % (Auto) 81.2 H Lymph % (Auto) 7.0 L Whitfield % (Auto) 11.2 H Eos % (Auto) 0.0 Baso % (Auto) 0.2 Lymph # (Auto) 0.9 L [place]field # (Auto) 1.5 H Eos # (Auto) 0.0 Baso # (Auto) 0.0 Abs Immat Gran (auto) 0.05 H Absolute Neuts (auto) 10.8 H Absolute Nucleated RBC 0.000 Nucleated RBC % (auto) 0.0 Anion Gap 13 Estim Creat Clear Calc 81.8 Estimated GFR > 60 Random Glucose Fasting Glucose 112 H Calcium 8.9 Magnesium Total Bilirubin 1.0 AST 50 H ALT 12 Alkaline Phosphatase 82 Lactate Dehydrogenase 259 Total Creatine Kinase 1407 H Troponin I High Sens 29.0 D Total Protein 6.4 L Albumin 3.7 Urine Color Urine Appearance Urine pH Ur Specific [place] Urine Protein Urine Glucose (UA) Urine Ketones Urine Blood Urine Nitrite Ur Leukocyte Esterase Urine RBC Urine WBC Ur Squamous Epith Cells Urine Bacteria Hyaline Casts Urine Opiates Screen Urine Fentanyl Screen Ur Barbiturates Screen Ur Phencyclidine Scrn Ur Amphetamines Screen U Benzodiazepines Scrn Urine Cocaine Screen U Marijuana (THC) Screen COVID-19 (MRI) COVID-19 Clin Com 08/16/22 08/16/22 08/16/22 12:32 16:30 Unknown MCV MCH MCHC RDW Plt Count MPV Immature Gran % (Auto) Neut % (Auto) Lymph % (Auto) Whitfield % (Auto) Eos % (Auto) Baso % (Auto) Lymph # (Auto) Whitfield # (Auto) Eos # (Auto) Baso # (Auto) Abs Immat Gran (auto) Absolute Neuts (auto) Absolute Nucleated RBC Nucleated RBC % (auto) Anion Gap Estim Creat Clear Calc Estimated GFR Random Glucose Fasting Glucose Calcium Magnesium 2.2 Total Bilirubin AST ALT Alkaline Phosphatase Lactate Dehydrogenase Total Creatine Kinase 1045 H Troponin I High Sens Total Protein Albumin Urine Color Dark Yellow Urine Appearance Clear Urine pH 5.5 Ur Specific [place] >= 1.030 H Urine Protein 30 (1+) H Urine Glucose (UA) Negative Urine Ketones Trace Urine Blood Negative Urine Nitrite Negative Ur Leukocyte Esterase Negative Urine RBC 0-2 Urine WBC 0-5 Ur Squamous Epith Cells 0-2 Urine Bacteria None Seen Hyaline Casts 0-2 Urine Opiates Screen Urine Fentanyl Screen Ur Barbiturates Screen Ur Phencyclidine Scrn Ur Amphetamines Screen U Benzodiazepines Scrn Urine Cocaine Screen U Marijuana (THC) Screen COVID-19 (MIR) Negative COVID-19 Clin Com See Note 08/16/22 08/17/22 Unknown 06:19 MCV MCH MCHC RDW Plt Count MPV Immature Gran % (Auto) Neut % (Auto) Lymph % (Auto) Whitfield % (Auto) Eos % (Auto) Baso % (Auto) Lymph # (Auto) [place] # (Auto) Eos # (Auto) Baso # (Auto) Abs Immat Gran (auto) Absolute Neuts (auto) Absolute Nucleated RBC Nucleated RBC % (auto) Anion Gap 13 Estim Creat Clear Calc 95.1 Estimated GFR > 60 Random Glucose 80 Fasting Glucose Calcium 8.4 Magnesium 2.2 Total Bilirubin 0.6 AST 42 H D ALT 28 Alkaline Phosphatase 67 D Lactate Dehydrogenase Total Creatine Kinase 923 H D Troponin I High Sens Total Protein 5.8 L Albumin 3.4 L Urine Color Urine Appearance Urine pH Ur Specific [place] Urine Protein Urine Glucose (UA) Urine Ketones Urine Blood Urine Nitrite Ur Leukocyte Esterase Urine RBC Urine WBC Ur Squamous Epith Cells Urine Bacteria Hyaline Casts Urine Opiates Screen Not Detected Urine Fentanyl Screen Not Detected Ur Barbiturates Screen Not Detected Ur Phencyclidine Scrn Not Detected Ur Amphetamines Screen Not Detected U Benzodiazepines Scrn Not Detected Urine Cocaine Screen Not Detected U Marijuana (THC) Screen Not Detected COVID-19 (MIR) COVID-19 Clin Com Assessment and Plan (1) Atrial fibrillation with rapid ventricular response: Status: Acute Plan 67-year-old male with history of Parkinson's disease on Sinemet, hypertension,? atrial fibrillation not on anticoagulation, heart failure with reduced ejection fraction of 35%, hyperlipidemia, and history of multiple back surgeries admitted for fall with weakness and afib with rvr. Multiple falls with generalized weakness frequent falls at home Head and cervical spine CT negative for acute intracranial abnormality, fracture, subluxation. Elevated CPK from being on the ground for 6 hours continue IV fluids PT eval rec STR NSVT s/p 13 beats on telemetry normal lytes continue BB Leukocytosis Likely reactive following fall UA, CXR neg Afib with RVR- rate now controlled treated with 5mg push lopressor Not on anticoagulation- ?due to falls continue BB Parkinson's disease continue Sinemet, ropinirole hypertension stable continue home meds HFrEF with EF 35-40% No acute exacerbation DVT prophylaxis- lovenox Attending Dr. Fernandes Full code DISPO STR when medically clear Healthcare proxy- partner, Meena Handley. Attempt made to call HCP without answer. Message left continued hospitalization for management of recurrent falls, generalized weakness with AFib RVR requiring close? cardiac monitoring, monitoring of electrolytes Time Spent With Patient Time: Total time managing care of this patient today ____ minutes. Quality Stroke Does the patient have a stroke diagnosis?: No VTE Prior VTE?: No VTE Risk Level:: Medical - moderate - high VTE Device Contraindication: Treatment Not Indicated VTE Drug Contraindication: N/A - Med Ordered
[2022-08-17] MEDS: Gabapentin 100 MG CAPSULE 200 MG PO (10:47)
[2022-08-17] MEDS: lisinopriL 10 MG TABLET PO (10:48)
[2022-08-17] MEDS: amLODIPine Besylate 2.5 MG TABLET PO ×3 (10:48→20:18)
[2022-08-17] MEDS: Carbidopa/Levodopa 25/100 TABLET 1 TAB PO ×2 (10:48→13:23)
[2022-08-17] MEDS: 0.9 % Sodium Chloride Flush 3 ML SYRINGE IVFLUSH (10:49)
[2022-08-17] MEDS: 0.9 % Sodium Chloride 1,000 ML 100 ML IVCONT ×2 (11:07→20:19)
--- NOTE | 2022-08-17 13:40 | MHC.CM.PN ---
PT is recommending STR. Patient has received Pfizer/CovBeaker vax X3. HCP is on file. PCP is Dr. Lachelle James. CM has received word that Patient was active with [facility] in the past and currently active with [facility]. IMM addressed and CM will follow.
--- NOTE | 2022-08-17 17:30 | MHC.EDTECH ---
Cleaned patient and changed bedding due to bowel movement / urine getting on gown and covers. Meaghan Escobar
[2022-08-17] MEDS: Gabapentin 300 MG CAPSULE PO (20:18)
[2022-08-17] MEDS: rOPINIRole HCL 0.25 MG TABLET PO (20:18)
[2022-08-17] MEDS: Enoxaparin Sodium 40 MG/0.4 ML SYRINGE SUBCUT (20:18)
[2022-08-17] MEDS: Metoprolol Succinate ER 12.5 MG HALFTAB.ER.24H PO (20:18)
[2022-08-17 21:13] VITALS: BP 121/69; PULSE 79; RESP 22; TEMP 36.4; O2SAT 98
--- NOTE | 2022-08-17 21:14 | MHC.EDTECH ---
pt is resting , vitals were taken and a [place] cath was also applied due to incontinence, he is all set
[2022-08-18] VITALS: BP 132/69; PULSE 71; RESP 22; TEMP 36.6; O2SAT 98
[2022-08-18] MEDS: 0.9 % Sodium Chloride Flush 3 ML SYRINGE IVFLUSH (00:51)
[2022-08-18] MEDS: 0.9 % Sodium Chloride 1,000 ML 100 ML IVCONT (01:39)
[2022-08-18 05:29] LABS: Anion Gap 12 (12-20); Blood Urea Nitrogen 18 mg/dL (9-16); Calcium 8.1 mg/dL (8.4-10.2); Carbon Dioxide 25 mmol/L (22-29); Chloride 111 mmol/L (96-108); Estimated Glomerular Filt Rate > 60; Glucose Random 84 mg/dL (60-115); Potassium 3.7 mmol/L (3.3-5.1); Sodium 144 mmol/L (135-145)
--- NOTE | 2022-08-18 06:35 | PC.NURSE ---
Patient restless throughout night. HR increases with activity , nonsustaining. SR/ST on monitor. Incontinent of urine and stool .
[2022-08-18] MEDS: Carbidopa/Levodopa 25/100 TABLET 1 TAB PO (07:52)
[2022-08-18] MEDS: lisinopriL 10 MG TABLET PO (07:55)
[2022-08-18] MEDS: amLODIPine Besylate 2.5 MG TABLET PO (07:57)
[2022-08-18] MEDS: Gabapentin 100 MG CAPSULE 200 MG PO (07:58)
[2022-08-18 08:02] VITALS: BP 128/72; PULSE 73; RESP 18; O2SAT 97
--- NOTE | 2022-08-18 08:38 | PC.NURSE ---
incontinent care done, total bed change, seen by Dr. Fatima, temp. 100.7 temporal. Flu/RSV/COVID ordered. will continue to observe.
--- NOTE | 2022-08-18 08:51 | PC.NURSE ---
incontinent care done, total bed change, seen by Dr. Fatima. Pt's significant other called for update. pt aware of plan for possible discharge to rehab. will continue to observe.
--- NOTE | 2022-08-18 09:44 | MHC.EDTECH ---
0730- full bed change, patient repositioned and set up with breakfast.
--- NOTE | 2022-08-18 10:22 | MHC.EDTECH ---
pt cell phone returned after being charged in main ED
[2022-08-18 10:29] VITALS: BP 128/72; PULSE 73; O2SAT 97
--- NOTE | 2022-08-18 11:32 | HO.PM.IMPN ---
Subjective Subjective Date of Service: 08/18/22 Interval History: Has generalized aches Physical Exam Vital Signs: Vital Signs: Last Vital Signs Temp 97.8 F 08/18/22 00:00 Pulse 73 08/18/22 10:29 Resp 18 08/18/22 08:02 BP 128/72 08/18/22 10:29 Pulse Ox 97 08/18/22 10:29 O2 Del Method 08/18/22 08:02 BMI result Body Mass Index 19.8 Const: Other: General: AO X 3, no acute distress Resp: CTA bilateral CVS: S1,S2,RRR GI: +BS, NT, no distention Skin: No rash Neuro: motor grossly intact Psych: appropriate affect Objective Data Active Medications Acetaminophen (Acetaminophen 325 Mg Tablet) 650 mg PO Q6H PRN PRN Reason: Pain, Mild (Pain Scale 1-3) Last Admin: 08/16/22 23:52 Dose: 650 mg Documented By: YURY Amlodipine Besylate (Amlodipine Besylate 2.5 Mg Tablet) 2.5 mg PO TID [facility]; Protocol Last Admin: 08/18/22 07:57 Dose: 2.5 mg Documented By: MARI Carbidopa/Levodopa (Carbidopa/Levodopa 25/100 Tablet) 1 tab PO BID@0700,1300 [facility] Last Admin: 08/18/22 07:52 Dose: 1 tab Documented By: MARI Docusate Sodium (Docusate Sodium 100 Mg Capsule) 100 mg PO DAILY PRN PRN Reason: Constipation Enoxaparin Sodium (Enoxaparin Sodium 40 Mg/0.4 Ml Syringe) 40 mg SUBCUT Q24H [facility] Last Admin: 08/17/22 20:18 Dose: 40 mg Documented By: IZA Gabapentin (Gabapentin 100 Mg Capsule) 200 mg PO DAILY [facility] Last Admin: 08/18/22 07:58 Dose: 200 mg Documented By: MARI Gabapentin (Gabapentin 300 Mg Capsule) 300 mg PO BEDTIME [facility] Last Admin: 08/17/22 20:18 Dose: 300 mg Documented By: IZA Sodium Chloride (Ns) 1,000 mls @ 100 mls/hr IVCONT .Q10H [facility] Last Admin: 08/18/22 05:16 Dose: Not Given Documented By: LESLEE Non-Admin Reason: IV Running Lisinopril (Lisinopril 10 Mg Tablet) 10 mg PO DAILY [facility]; Protocol Last Admin: 08/18/22 07:55 Dose: 10 mg Documented By: MARI Melatonin (Melatonin 3 Mg Tablet) 3 mg PO BEDTIME PRN PRN Reason: Sleep Last Admin: 08/17/22 20:18 Dose: 3 mg Documented By: IZA Metoprolol Succinate (Metoprolol Succinate Er 12.5 Mg Halftab.Er.24h) 12.5 mg PO BEDTIME [facility]; Protocol Last Admin: 08/17/22 20:18 Dose: 12.5 mg Documented By: IZA Ondansetron HCl (Ondansetron Hcl 4 Mg/2 Ml Vial) 4 mg IVPUSH Q8H PRN PRN Reason: Nausea and Vomiting Pharmacy Consult (Consult Rx Perform Med Rec) 1 each MISCELLANE ONCE PRN PRN Reason: Consult order Ropinirole HCl (Ropinirole Hcl 0.25 Mg Tablet) 0.25 mg PO BEDTIME [facility] Last Admin: 08/17/22 20:18 Dose: 0.25 mg Documented By: IZA Sodium Chloride (0.9 % Sodium Chloride Flush 3 Ml Syringe) 3 ml IVFLUSH QSHIFT [facility] Last Admin: 08/18/22 07:53 Dose: Not Given Documented By: MARI Non-Admin Reason: IV Running Labs 08/16/22 12:08 08/18/22 04:17 Labs: Laboratory Results - last 24 hr 08/18/22 04:17 Anion Gap 12 Estim Creat Clear Calc 88.0 Estimated GFR > 60 Random Glucose 84 Calcium 8.1 L Assessment and Plan (1) Atrial fibrillation with rapid ventricular response: Status: Acute Plan 67-year-old male with history of Parkinson's disease on Sinemet, hypertension,? atrial fibrillation not on anticoagulation, heart failure with reduced ejection fraction of 35%, hyperlipidemia, and history of multiple back surgeries admitted for fall with weakness and afib with rvr. Multiple falls with generalized weakness frequent falls at home Head and cervical spine CT negative for acute intracranial abnormality, fracture, subluxation. Elevated CPK from being on the ground for 6 hours continue IV fluids PT eval rec STR NSVT s/p 13 beats on telemetry normal lytes continue BB Leukocytosis Likely reactive following fall UA, CXR neg Afib with RVR- rate now controlled treated with 5mg push lopressor Not on anticoagulation- ?due to falls continue BB Parkinson's disease continue Sinemet, ropinirole hypertension stable continue home meds HFrEF with EF 35-40% No acute exacerbation DVT prophylaxis- nic[facility] Attending Dr. Fernandes Full code DISPO STR when medically clear continued hospitalization for management of recurrent falls, generalized weakness with AFib RVR requiring close? cardiac monitoring, monitoring of electrolytes and need for placement Time Spent With Patient Time: Total time managing care of this patient today ____ minutes. Quality Stroke Does the patient have a stroke diagnosis?: No VTE Prior VTE?: No VTE Risk Level:: Medical - moderate - high VTE Device Contraindication: Treatment Not Indicated VTE Drug Contraindication: N/A - Med Ordered
[2022-08-18 11:47] VITALS: BP 122/61; PULSE 78; RESP 20; TEMP 36.1; O2SAT 98
--- NOTE | 2022-08-18 12:00 | P.DS_ITS ---
DS: Providers Provider Date of Service: 08/18/22 Date of admission: 08/16/22 18:13 Primary care physician: Lachelle Simon MD DS: Diagnosis Discharge Diagnosis (1) Atrial fibrillation with rapid ventricular response: Status: Acute DS: Summary Hospital Course Hospital Course: Chief Complaint: fall, weakness ?67-year-old male with history of Parkinson's disease on Sinemet, hypertension,? atrial fibrillation not on anticoagulation, heart failure with reduced ejection fraction of 35%, hyperlipidemia, and history of multiple back surgeries? presented to the ED earlier? today via EMS for evaluation of a fall which occurred around 06:00.? The patient does not recall the details surrounding the fall but states that he was on the ground for 6 hours for he was found by his physical therapist who called 911.? He was able to tell me the names of the officers who assisted him off of the ground and is oriented x3.? He tells me he currently has a headache, feeling fatigued, and weak. ? He also had an episode of urinary incontinence in the ED which is not his baseline and states that he has had increased urinary frequency for several weeks. He states that for the last several days he has felt unsteady on his feet and has had several falls, most recently last in which he fell and hit his shoulder. Denies any other urinary complaints including dysuria, hematuria, decreased urinary output.? No fevers, chills.? Denies any recent illness. No history seizures. On arrival VSS. However, patient convert to afib with rvr with rates into the 140s while in the ED. EKG confirmed afib with rate 114, no ? ST/T-wave abnormalities consistent with acute ischemia. ? There is also a nonsustained V-tach of 5 beats with rate of 160. ? Given 5 mg push Lopressor and PO metroprolol PO with rate controlled in 90s. Troponin 29.? Mild leukocytosis of 13.3, likely reactive.? Stable normocytic anemia with H/ H 13.1/40 %.? Renal function baseline with creatinine 0.72.? Mild hypernatremia 146,? potassium 4.2, chloride 112, CO2 25, magnesium 2.2. initial CPK 1407.? Given 1 L IV NS improvement in CPK to 1045.? CXR unremarkable.? Head and? cervical spine CT negative for any acute intracranial hemorrhage or other acute intracranial pathology, fracture or malalignment in the cervical spine,? s/p diskectomy and anterior fusion at C5- C6. Negative for COVID 19. Hospital course: Multiple falls with generalized weakness likely related to Parkinson and dehydration. Work up included Head and cervical spine CT negative for acute intracranial abnormality, fracture, subluxation. Elevated CPK not quite high for rhabdo, from being on the ground for 6 hours, CPK of 1000 went down after hydration Hypernatremia 147, resolved after IV fluid, now 144 NSVT s/p 13 beats on telemetry, normal electrolytes, continue Metoprolol at 25 previously 12.5 Leukocytosis Likely reactive following fall UA, CXR neg Afib with RVR- rate now controlled treated with 5mg push lopressor once. HR now within normal. Continue Metoprolol No anticoagulation due to fall and risk for intracranial hemorrhage Parkinson's disease continue Sinemet, ropinirole hypertension--Stop Norvasc 2.5, Metoprolol increased to 25 from 12.5, continue Lisinopril 10 PT recommends short term rehab Time Spent with Patient Time attestation: Total time managing care of this patient today ____ minutes. Discharge coordination time: Greater than 30 minutes Quality: Safe Use of Opioids Does Pt have an Active Cancer Diagnosis on the Problem List?: No Quality: Stroke Does the patient have a stroke diagnosis?: No Physical Exam Vital Signs: Vital Signs: Last Vital Signs Temp 97.0 F 08/18/22 11:47 Pulse 78 08/18/22 11:47 Resp 20 08/18/22 11:47 BP 122/61 08/18/22 11:47 Pulse Ox 98 08/18/22 11:47 O2 Del Method 08/18/22 11:47 BMI result Body Mass Index 19.8 Const: Other: General: AO X 3, no acute distress Resp: CTA bilateral CVS: S1,S2,RRR GI: +BS, NT, no distention Skin: No rash Neuro: motor grossly intact Psych: appropriate affect DS: Data Data Completed and Pending Labs on day of discharge: Laboratory Results - last 24 hr 08/18/22 04:17 Sodium 144 Potassium 3.7 Chloride 111 H Carbon Dioxide 25 Anion Gap 12 BUN 18 H Creatinine 0.67 Estim Creat Clear Calc 88.0 Estimated GFR > 60 Random Glucose 84 Calcium 8.1 L Discharge Plan Discharge Anticipated Discharge Date/Time: 08/18/22 11:55 Patient Disposition: Xfer SNF Discharge Diagnosis: Fall, elevated CPK, Hypernatremia Referrals: Lachelle Simon MD [Primary Care Provider] - 1 Week Discharge Medications: Continued melatonin 3 mg Tablet 3 mg PO BEDTIME PRN (Reason: Sleep) lisinopril 10 mg Tablet 10 mg PO DAILY gabapentin 300 mg Capsule 300 mg PO BEDTIME gabapentin 100 mg Capsule 200 mg PO DAILY carbidopa-levodopa 25-100 mg Tablet 1 tab PO BID@0700,1300 ropinirole 0.25 mg tablet 1 tab PO BEDTIME acetaminophen 650 mg tablet extended release 1 tab PO Q8H PRN (Reason: pain) Changed metoprolol succinate 25 mg tablet extended release 24 hr 25 mg PO BEDTIME Qty: 30 0RF Discontinued amlodipine 2.5 mg tablet 1 tab PO TID Discharge Orders: Discharge Order (Routine); Ordered 08/18/22 Ordered By: Dawson yaquelin Diet: Advance to usual diet Activity on Discharge: As tolerated Stand Alone Forms: Patient Portal Discharge page Care Plan Goals: Recovery from fall, dehydration Health Concerns: Parkinson's disease Frequency If Plan of Treatment: Stop taking amlodipine Metoprolol has been increased to 25 mg twice daily Drink plenty of fluid Participating we Assessment: As above
--- NOTE | 2022-08-18 12:58 | MHC.CM.PN ---
Addendum entered by Cristela Carias 08/18/22 14:20: VM MESSAGE LEFT FOR PTS HCP TER[facility]IN [phone] Original Note: PT CLEARED TO DC TO STR TODAY CM MET WITH PT WHO REPORTS HE IS AGREEABLE TO STR AT [facility] CM WILL CALL HCP BLS TRANSPORT SCHEDULED FOR 1500 HOURS WITH ROB
== END 2022-08-18 15:01 | disposition skilled nursing facility (03) | DRG 309 ==
LOC: HO.ED 17:53 → HO.EDOVER 18:29 → HO.IMC 08-18 09:29
PROVIDERS: Nurse Practitioner Acute Care; Nurse Practitioner Family; Admitting Provider Physician Assistant; Emergency Provider Emergency Medicine Emergency Medical Services; PCP Internal Medicine; Visit Provider Internal Medicine
DX: I48.91 Unspecified atrial fibrillation (principal); E87.0 Hyperosmolality and hypernatremia; I50.22 Chronic systolic (congestive) heart failure; I47.20 Ventricular tachycardia, unspecified; I11.0 Hypertensive heart disease with heart failure; G20 Parkinson's disease; Z20.822 Contact with and (suspected) exposure to COVID-19; E86.0 Dehydration; E78.5 Hyperlipidemia, unspecified; Z98.1 Arthrodesis status; Z87.891 Personal history of nicotine dependence; Z79.899 Other long term (current) drug therapy
CPT/HCPCS: 36415; 70450; 71046; 72125; 80048; 80053; 80307; 81001; 82550; 83615; 83735; 84484; 85025; 87635; 93005; 97110; 97162; 99285; J1650

== ENCOUNTER 2022-09-17 10:18 | Emergency (ER) | payer MEDICARE, SELFPAY ==
--- NOTE | 2022-09-17 | ECG_ITS ---
Test Reason : TACHY Blood Pressure : / mmHG Vent. Rate : 072 BPM Atrial Rate : 072 BPM P-R Int : 206 ms QRS Dur : 094 ms QT Int : 396 ms P-R-T Axes : 043 001 056 degrees QTc Int : 433 ms Sinus rhythm with Premature atrial complexes Nonspecific ST abnormality Abnormal ECG When compared with ECG of 17-AUG-2022 15:21, No significant change was found Referred By: Yogesh Clifford Electronically Signed By:SAMEERA SAMS MD
--- NOTE | ~2022-09-17 | XR_ITS ---
EXAMINATION: XR CHEST CLINICAL INFORMATION: Chest pain status post fall. COMPARISON: 08/16/2022 chest radiographs. TECHNIQUE: 2 views of the chest were obtained. FINDINGS: The lungs are clear. There is no pneumothorax. There are no pleural effusions. The heart and mediastinal structures are unremarkable. Anterior fusion hardware in the cervical spine without abnormality. The visualized osseous structures appear intact. XR/XR chest 2V IMPRESSION: Unremarkable examination.
--- NOTE | ~2022-09-17 | CT_ITS ---
EXAMINATION: CT CERVICAL SPINE WITHOUT CONTRAST CLINICAL INFORMATION: Pain status post fall. COMPARISON: Cervical spine CT scan dated 08/16/2022. TECHNIQUE: Multiple axial images of the cervical spine were obtained without the administration of intravenous contrast. Coronal and sagittal reformatted images were obtained. This CT examination was performed using dose optimization techniques as appropriate, variously including the following: *Automated exposure control *Adjustment of mA and/or kV according to patient size (this includes techniques or standardized protocols for targeted exams where dose is matched to indication/reason for exam; i.e. extremities or head) *Use of iterative reconstruction technique DLP: 479.03 mGy-cm FINDINGS: There is straightening of the normal cervical lordosis. Mild multilevel degenerative disc disease is seen most pronounced at C4-C5. Anterior fusion is again seen at C5-C6 showing good anatomic alignment without hardware abnormality. Mild bilateral neural foraminal narrowing is seen at C5-C6 and C6-C7. The facet joints show mild degenerative changes most pronounced on the left at C7-T1. The cervical soft tissues are unremarkable. There is no lymphadenopathy. The thyroid gland is unremarkable. The odontoid process is intact with mild articulating degenerative changes. The spinous and transverse processes are intact. The lung apices are unremarkable. CT/CT cervical spine wo IV con IMPRESSION: 1. Straightening of the normal cervical lordosis may be secondary to positioning and/or muscle spasm. 2. Mild multilevel degenerative changes without acute abnormality. Fleischner guidelines were followed.
--- NOTE | ~2022-09-17 | CT_ITS ---
EXAMINATION: CT HEAD WITHOUT CONTRAST CLINICAL INFORMATION: Status post fall with head pain. COMPARISON: Head CT scan dated 08/16/2022. TECHNIQUE: Contiguous axial imaging was performed from the skull base to vertex without intravenous administration of contrast. Coronal and sagittal reformatted images were obtained. This CT examination was performed using dose optimization techniques as appropriate, variously including the following: *Automated exposure control *Adjustment of mA and/or kV according to patient size (this includes techniques or standardized protocols for targeted exams where dose is matched to indication/reason for exam; i.e. extremities or head) *Use of iterative reconstruction technique DLP: 479.03 mGy-cm FINDINGS: There is mild widening of the cortical sulci and associated ventriculomegaly. Mild periventricular microvascular changes are again seen. The lateral ventricles are symmetrical. The third and fourth ventricles are in their normal midline position. The basilar and prepontine cisterns are unremarkable. There is no acute intra or extracerebral abnormality. There is no mass effect or midline shift. Sections through the bony calvarium are unremarkable. The orbits are intact. The paranasal sinuses are clear. The mastoid air cells are clear. CT/CT head/brain wo IV con IMPRESSION: No acute intracranial pathology.
--- NOTE | ~2022-09-17 | XR_ITS ---
EXAMINATION: XR SHOULDER, LEFT CLINICAL INFORMATION: Left shoulder pain status post fall. COMPARISON: None TECHNIQUE: Three views of the left shoulder. FINDINGS: The humeral head is positioned mildly superiorly relative to the bony glenoid with narrowing of the humeral acromial space. Mild to moderate left glenohumeral degenerative joint changes are seen. There is mild widening of the left acromioclavicular joint space with normal alignment. There is no acute fracture. The soft tissues are unremarkable. XR/XR shoulder LT min 2V IMPRESSION: 1. Evidence for chronic rotator cuff tear with associated mild to moderate glenohumeral degenerative joint changes. 2. Mild widening of the left acromioclavicular joint space is nonspecific, but could be normal for the patient. Acromioclavicular joint grade 1 separation of indeterminate age cannot be excluded.
[2022-09-17 10:26] VITALS: BP 115/78; BP 132/84; PULSE 132; PULSE 133; RESP 16; TEMP 37; O2SAT 100; O2SAT 98; BMI 31.1
--- NOTE | 2022-09-17 10:37 | ED.FALL ---
HPI - Fall General Chief Complaint: Fall Stated Complaint: Fall, shoulder pain per EMS Time Seen by Provider: 09/17/22 10:22 Source: patient and EMS Mode of arrival: EMS Limitations: no limitations History of Present Illness HPI Narrative: 67-year-old male with history of Parkinson's disease states he was ambulating and fell due to his Parkinson's. He states he fell onto his left shoulder he did not hit his head he denies loss of consciousness he denies chest pain cough fever. MD complaint: fall Related Data Home Medications Medication Instructions Recorded Confirmed carbidopa 25 mg-levodopa 100 mg 1 tab PO BID@0700,1300 12/23/21 08/16/22 tablet gabapentin 100 mg capsule 200 mg PO DAILY 12/23/21 08/16/22 gabapentin 300 mg capsule 300 mg PO BEDTIME 12/23/21 08/16/22 lisinopril 10 mg tablet 10 mg PO DAILY 12/23/21 08/16/22 melatonin 3 mg tablet 3 mg PO BEDTIME PRN Sleep 12/23/21 08/16/22 ropinirole 0.25 mg tablet 1 tab PO BEDTIME 04/23/22 08/16/22 acetaminophen 650 mg 1 tab PO Q8H PRN pain 08/16/22 08/16/22 tablet,extended release Previous Rx's Medication Instructions Recorded metoprolol succinate 25 mg 25 mg PO BEDTIME #30 tabs 08/18/22 tablet,extended release 24 hr Allergies Allergy/AdvReac Type Severity Reaction Status Date / Time No Known Allergies Allergy Verified 12/16/21 02:35 Review of Systems Review of Systems: Review of systems: General: Patient denies any fever chills recent illness or falls Musculoskeletal: Denies back pain or body aches or other injuries HEENT: denies headache, runny nose, ear pain Respiratory: denies shortness of breath, cough Cardiovascular: no chest pain or palpitations : denies dysuria, frequency Abdomen: no nausea vomiting denies abdominal pain Extremities: Left shoulder pain Skin: no diaphoresis Yes all other systems are reviewed and are negative [facility] Past Medical History Medical History (Updated 09/17/22 @ 12:02 by Yogesh Clfiford DO) Atrial fibrillation with rapid ventricular response Cardiomyopathy CHF (congestive heart failure) HTN (hypertension) Parkinson disease Surgical History H/O spinal fusion Family History Family History Mother CAD (coronary artery disease) Social History Social History Household Members: None Housing: House Do you presently have visiting nurse or other home services: Yes Unable to assess alcohol history related to: Unknown Alcohol intake: former Patient Tobacco Use Status: Former Tobacco user e-Cigarette/Vaping Use: Never Used Substance Use Type: Marijuana Advance Directives: Yes Advance Directives on File: Yes Advance Directives Date on File: 12/27/21 service: No Current occupational status: retired Physical Exam Vital Signs: Vital Signs: Last Vital Signs Temp 98.6 F 09/17/22 10:26 Pulse 72 09/17/22 10:43 Resp 12 09/17/22 10:43 BP 126/63 09/17/22 10:43 Pulse Ox 97 09/17/22 10:43 O2 Del Method 09/17/22 10:43 BMI result Body Mass Index 31.1 General: Well-appearing well-nourished in no signs of distress HEENT: Normocephalic atraumatic Neck: No signs of JVD, no masses no tenderness or lymphadenopathy Cardiovascular: Regular rate and rhythm Respiratory: Clear to auscultation bilaterally Abdomen: Soft nontender no masses Extremities: Abrasion to left shoulder decreased ROM on both but more pronouced on the left Normal pedal pulses no signs of edema Skin: Dry warm no rashes Back: No tenderness full ROM Medications Administered Discontinued Medications Generic Name Dose Route Start Last Admin Trade Name Renetta PRN Reason Stop Dose Admin Acetaminophen 650 mg 09/17/22 10:36 09/17/22 11:25 Acetaminophen 325 Mg Tablet PO 09/17/22 10:37 650 mg ONCE ONE Administration Ketorolac Tromethamine 15 mg 09/17/22 10:36 09/17/22 11:24 Ketorolac Tromethamine 30 Mg/Ml Vial IM 09/17/22 10:37 15 mg ONCE ONE Administration Medical Decision Making Medical Decision Making MDM Narrative: Assess patient for x-ray since patient did hit his head with CT scan of his head and neck as well. 1159 Initial HR was elevated he has a history of Afib with RVR but by the time he got his EKG it was normal rate. Remained normal during visit. XR of the shoulder was non specific could be new seperation . I will place in a sling with ortho follow up. CT head and neck are both negative. Differential Diagnosis Differential Diagnoses: The differential diagnosis associated with the presentation includes Parkinson's related fall versus syncope EKG is normal heart rate is much I will give patient for an x-ray I will scan his head and neck. Concern for fracture versus dislocation of clavicle or shoulder. Admission/Observation Consideration of admission/observation: Escalation of care including admission/observation considered Independent Interpretation I performed an independent interpretation of an: EKG Interpretation: Rate 72 nsr normal intervals no signs of ischemia Discharge Plan Discharge Clinical Impression: Contusion of left shoulder, AC separation Patient Disposition: Home, Self-Care Instructions: Contusion in Adults (ED), Acromioclavicular Separation (ED) Additional Instructions: Please call to follow up with Orthopedics. Use ice and rest. Please return if you have worsening pain Prescriptions: No Action melatonin 3 mg Tablet 3 mg PO BEDTIME PRN (Reason: Sleep) lisinopril 10 mg Tablet 10 mg PO DAILY gabapentin 300 mg Capsule 300 mg PO BEDTIME gabapentin 100 mg Capsule 200 mg PO DAILY carbidopa-levodopa 25-100 mg Tablet 1 tab PO BID@0700,1300 ropinirole 0.25 mg tablet 1 tab PO BEDTIME acetaminophen 650 mg tablet extended release 1 tab PO Q8H PRN (Reason: pain) metoprolol succinate 25 mg tablet extended release 24 hr 25 mg PO BEDTIME Qty: 30 0RF Referrals: Jack Dunaway MD [Physician] - (Please call to follow up for your shoulder)
[2022-09-17 10:43] VITALS: BP 126/63; PULSE 72; RESP 12; O2SAT 97
--- OUTSIDE RECORDS SUMMARY | 2022-09-17 10:45 | XMS_ITS | Continuity of Care Document ---
:1955 Author Organization [facility] Address [address] [place] [id number]- Care Team Providers Name Role Phone Erika CHAPARRO, Lin Tidwell Primary Care Physician [id number] Date[facility]s): 08/03/22 - 09/02/22 [facility] [address] [place] [id number]- Attending Physician: Kenneth Monaco Admitting Physician: Kenneth Monaco Referring Physician: Kenneth Monaco Allergies, Adverse Reactions, Alerts No Known Medication Allergies Medications amLODIPine 2.5 mg oral tablet 3 tablet = 7.5 mg, 0 Refills, Maintenance, 08/25/22 16:18:00 EST, Partial fill upon patient request if the prescription is for a schedule II opioid drug. Start Date: 08/25/22 Status: Orderedcarbidopa-levodopa 25 mg-100 mg oral tablet 1 tablet, By Mouth, 2 times a day, 0 Refills, Maintenance, 08/25/22 16:20:00 EST, Partial fill upon patient request if the prescription is for a schedule II opioid drug. Start Date: 08/25/22 Status: Orderedgabapentin 100 mg oral capsule 100 mg, 1, capsule, By Mouth, 2 times a day, Refills 0, Maintenance, 08/25/22 16:21:00 EST, Partial fill upon patient request if the prescription is for a schedule II opioid drug. Start Date: 08/25/22 Status: Orderedlisinopril 10 mg oral tablet 10 mg, 1, tablet, By Mouth, Daily, # 30 tablet, Refills 0, Maintenance, 08/25/22 16:23:00 EST, Partial fill upon patient request if the prescription is for a schedule II opioid drug. Start Date: 08/25/22 Status: OrderedMelatonin 3 mg oral tablet 1 tablet = 3 mg, By Mouth, Daily at bedtime, PRN for insomnia, # 60 tablet, 0 Refills, Maintenance, 08/25/22 16:22:00 EST, Tablet, Partial fill upon patient request if the prescription is for a schedule II opioid drug. Start Date: 08/25/22 Status: OrderedrOPINIRole 0.25 mg oral tablet 1 tablet = 0.25 mg, By Mouth, Daily at bedtime, # 30 tablet, 0 Refills, Maintenance, 08/25/22 16:19:00 EST, Tablet, Partial fill upon patient request if the prescription is for a schedule II opioid drug. Start Date: 08/25/22 Stop Date: 09/24/22 Status: Ordered Patient Care team information Care Team PersonnelName: Erika CHAPARRO, Lin Tidwell Position: [facility] Associate Professional Member Role: PCP Address: Address: [address] [facility], [place] [address]- Care Team Related PersonsName: ALLI MARIN Address: [address] [place] [address]
--- OUTSIDE RECORDS SUMMARY | 2022-09-17 10:45 | XMS_ITS | Continuity of Care Document ---
:1955 Author Organization [facility] Address [address] [place] [id number]- Care Team Providers Name Role Phone Erika CHAPARRO, Lin Tidwell Primary Care Physician [phone] Encounter [facility] Date(s): 09/09/22 - 09/10/[address] [address]- Encounter Diagnosis Shoulder pain (Final) - 09/09/22 Head contusion (Final) - 09/10/22 Discharge Disposition: A-D/C Home Attending Physician: Osmany Duarte MD Admitting Physician: Osmany Duarte MD Referring Physician: Not on Staff, Referring MD Allergies, Adverse Reactions, Alerts No Known Medication [...] Date: 08/25/22 Stop Date: 09/24/22 Status: Ordered Results Radiology Reports Exam Date Time Procedure Performing Provider Status 09/10/22 3:[address] Cervical Spine W/O Guillermina Landon (Verified) Contrast Notes:(CT Cervical Spine W/O Contrast) Reason For Exam: Neck trauma, dangerous injury mechanism;Other:RESULT: CT Cervical Spine W/O Contrast CT Head/Brain W/O Contrast, CT Cervical Spine W/O Contrast INDICATION: Trauma. TECHNIQUE: Noncontrast head CT using axial technique was reconstructed in axial and coronal planes. Noncontrast spiral CT through the cervical spine was formatted in 3 planes. Automatic tube modulationwas used for the cervical spine and iterative dose reconstruction was used for both the head and cervical spine to optimize scan parameters and image quality. CTDIvol Body: 11.30 mGy, DLP Body: 285 mGy*cm. CTDIvol Head: 41.30 mGy, DLP Head: 672 mGy*cm. COMPARISON: None. FINDINGS: Commission Associate View Findings, Lines and Tubes: None. BRAIN AND EXTRA-AXIAL SPACES: No parenchymal hemorrhage, midline shift, or mass effect. Calvillo-white matter differentiation is well preserved. No acute infarct. Ventricles, sulci, and basilar cisterns are normal. No white matter lesions. No subarachnoid hemorrhage. No subdural or epidural collection. CALVARIUM, SKULL BASE, AND SOFT TISSUES: No fractures or suspicious bony lesions. The paranasal sinuses and mastoid air cells are clear. Visualized orbits and globes are intact. The extracranial soft tissues are unremarkable. CERVICAL SPINE: No fracture. No acute osseous abnormalities. Normal alignment. No locked or perched facet. Mild multilevel degenerative disc space narrowing and end plate irregularity. Anterior cervical spine discectomy and fusion at C5-C6. OTHER BONES: No acute abnormality. CERVICAL SOFT TISSUES AND LUNG APICES: Atrophic calcified left submandibular gland. Visualized lung apices are clear. IMPRESSION: No acute abnormality of the head or cervical spine. Atrophic calcified left submandibular gland. I have personally reviewed the images and I agree with this report. WSN: [id number] Ordering Physician: Malathi Brice Dictated By: Charlie Ibrahim MD Dictated Date/Time: 09/10/22 7:13 am Reviewed By: Heather Chiang MD Signed By: Heather Chiang MD Signed Date/Time: 09/10/22 7:18 am Transcribed By: TOM Transcribed Date/Time: 09/10/22 3:18 am Exam Date Time Procedure Performing Provider Status 09/10/22 3:[address] Head/Brain W/O Contrast Maddi Landon; Auth (Verified) Notes:(CT Head/Brain W/O Contrast) Reason For Exam: TraumaRESULT: CT Head/Brain W/O Contrast CT Head/Brain W/O Contrast, CT Cervical Spine W/O Contrast INDICATION: Trauma. TECHNIQUE: Noncontrast head CT using axial technique was reconstructed in axial and coronal planes. Noncontrast spiral CT through the cervical spine was formatted in 3 planes. Automatic tube modulationwas used for the cervical spine and iterative dose reconstruction was used for both the head and cervical spine to optimize scan parameters and image quality. CTDIvol Body: 11.30 mGy, DLP Body: 285 mGy*cm. CTDIvol Head: 41.30 mGy, DLP Head: 672 mGy*cm. COMPARISON: None. FINDINGS: Commission Associate View Findings, Lines and Tubes: None. BRAIN AND EXTRA-AXIAL SPACES: No parenchymal hemorrhage, midline shift, or mass effect. Calvillo-white matter differentiation is well preserved. No acute infarct. Ventricles, sulci, and basilar cisterns are normal. No white matter lesions. No subarachnoid hemorrhage. No subdural or epidural collection. CALVARIUM, SKULL BASE, AND SOFT TISSUES: No fractures or suspicious bony lesions. The paranasal sinuses and mastoid air cells are clear. Visualized orbits and globes are intact. The extracranial soft tissues are unremarkable. CERVICAL SPINE: No fracture. No acute osseous abnormalities. Normal alignment. No locked or perched facet. Mild multilevel degenerative disc space narrowing and end plate irregularity. Anterior cervical spine discectomy and fusion at C5-C6. OTHER BONES: No acute abnormality. CERVICAL SOFT TISSUES AND LUNG APICES: Atrophic calcified left submandibular gland. Visualized lung apices are clear. IMPRESSION: No acute abnormality of the head or cervical spine. Atrophic calcified left submandibular gland. I have personally reviewed the images and I agree with this report. WSN: [id number] Ordering Physician: Malathi Brice Dictated By: Charlie Ibrahim MD Dictated Date/Time: 09/10/22 7:13 am Reviewed By: Heather Chiang MD Signed By: Heather Chiang MD Signed Date/Time: 09/10/22 7:18 am Transcribed By: TOM Transcribed Date/Time: 09/10/22 3:18 am Exam Date Time Procedure Performing Provider Status 09/09/22 11:48 PM XR Femur 2 Views Left Neetu Hou; Auth (Verified) Notes:(XR Femur 2 Views Left) Reason For Exam: with Pain;TraumaRESULT: Femur 2 Views Left Pelvis 1 or 2 Views, Tibia/Fibula 2 Views Left, Knee 3 Views Left, Femur 2 Views Left Reason: Trauma; With Pain; Clinical Question(s): Fracture COMPARISON: None. FINDINGS: No fracture involving the pelvis, left femur, knee, left tibia and fibula. Right greater left mild hip osteoarthritis. Mild medial femorotibial joint space narrowing. Unremarkable ankle joint. Unremarkable soft tissues. IMPRESSION: No acute abnormality involving the pelvis, left femur, knee, left tibia and fibula. I have personally reviewed the images and I agree with this report. WSN: [id number] Ordering Physician: Indigo Long Dictated By: Robert[Radiology] Addie ANDRE Dictated Date/Time: 09/10/22 0:02 am Reviewed By: Phil Bell MD Signed By: Phil Bell MD Signed Date/Time: 09/10/22 0:07 am Transcribed By: TOM Transcribed Date/Time: 09/09/22 11:57 pm Exam Date Time Procedure Performing Provider Status 09/09/22 11:48 PM Knee 3 Views Left Dee Houberly; Holger h (Verified) Notes:(Knee 3 Views Left) Reason For Exam: with Pain;TraumaRESULT: Knee 3 Views Left Pelvis 1 or 2 Views, Tibia/Fibula 2 Views Left, Knee 3 Views Left, Femur 2 Views Left Reason: Trauma; With Pain; Clinical Question(s): Fracture COMPARISON: None. FINDINGS: No fracture involving the pelvis, left femur, knee, left tibia and fibula. Right greater left mild hip osteoarthritis. Mild medial femorotibial joint space narrowing. Unremarkable ankle joint. Unremarkable soft tissues. IMPRESSION: No acute abnormality involving the pelvis, left femur, knee, left tibia and fibula. I have personally reviewed the images and I agree with this report. WSN: [id number] Ordering Physician: Indigo Long Dictated By: Robert[Radiology] MD [facility] Dictated Date/Time: 09/10/22 0:02 am Reviewed By: Phil Bell MD Signed By: Phil Bell MD Signed Date/Time: 09/10/22 0:07 am Transcribed By: TOM Transcribed Date/Time: 09/09/22 11:57 pm Exam Date Time Procedure Performing Provider Status 09/09/22 11:48 PM Tibia/Fibula 2 Views Left Dee Hougeo rly; Auth (Verified) Notes:(Tibia/Fibula 2 Views Left) Reason For Exam: with Pain;TraumaRESULT: Tibia/Fibula 2 Views Left Pelvis 1 or 2 Views, Tibia/Fibula 2 Views Left, Knee 3 Views Left, Femur 2 Views Left Reason: Trauma; With Pain; Clinical Question(s): Fracture COMPARISON: None. FINDINGS: No fracture involving the pelvis, left femur, knee, left tibia and fibula. Right greater left mild hip osteoarthritis. Mild medial femorotibial joint space narrowing. Unremarkable ankle joint. Unremarkable soft tissues. IMPRESSION: No acute abnormality involving the pelvis, left femur, knee, left tibia and fibula. I have personally reviewed the images and I agree with this report. WSN: [id number] Ordering Physician: Indigo Long Dictated By: Robert[Radiology] Addie ANDRE Dictated Date/Time: 09/10/22 0:02 am Reviewed By: Phil Bell MD Signed By: Phil Bell MD Signed Date/Time: 09/10/22 0:07 am Transcribed By: TOM Transcribed Date/Time: 09/09/22 11:57 pm Exam Date Time Procedure Performing Provider Status 09/09/22 11:48 PM Pelvis 1 or 2 Views Neetu Hou; [facility] (Verified) Notes:(Pelvis 1 or 2 Views) Reason For Exam: With Pain;TraumaRESULT: Pelvis 1 or 2 Views Pelvis 1 or 2 Views, Tibia/Fibula 2 Views Left, Knee 3 Views Left, Femur 2 Views Left Reason: Trauma; With Pain; Clinical Question(s): Fracture COMPARISON: None. FINDINGS: No fracture involving the pelvis, left femur, knee, left tibia and fibula. Right greater left mild hip osteoarthritis. Mild medial femorotibial joint space narrowing. Unremarkable ankle joint. Unremarkable soft tissues. IMPRESSION: No acute abnormality involving the pelvis, left femur, knee, left tibia and fibula. I have personally reviewed the images and I agree with this report. WSN: [id number] Ordering Physician: Indigo Long Dictated By: Robert[Radiology] Addie ANDRE Dictated Date/Time: 09/10/22 0:02 am Reviewed By: Phil Bell MD Signed By: Phil Bell MD Signed Date/Time: 09/10/22 0:07 am Transcribed By: TOM Transcribed Date/Time: 09/09/22 11:57 pm Exam Date Time Procedure Performing Provider Status 09/09/22 8:29 PM Shoulder Min 2 Views Left Bruce Fernandes; Du ( Verified) Notes:(Shoulder Min 2 Views Left) Reason For Exam: with Pain;TraumaRESULT: Shoulder Min 2 Views Left Shoulder Min 2 Views Left, views Reason: Trauma; with Pain; Clinical Question(s): Fracture COMPARISON: None. FINDINGS: No fracture or dislocation. Moderate glenohumeral joint space narrowing and marginal spurring. Mild degenerative changes of the AC joint. The portion of the clavicle included on the exam is normal. No calcification of the rotator cuff. IMPRESSION: No acute abnormality WSN: [id number] Ordering Physician: Malathi Brice Dictated By: Antoine Kelly MD Dictated Date/Time: 09/09/22 8:44 pm Reviewed By: Antoine Kelly MD Signed By: Antoine Kelly MD Signed Date/Time: 09/09/22 8:44 pm Transcribed By: TOM Transcribed Date/Time: 09/09/22 8:36 pm Vital Signs Most recent to oldest 1 2 3 [Reference Range]: Oxygen Saturation [94-100 %] 97 % 98 % 97 % (09/10/22 12:43 AM) (09/09/22 9:36 PM) (09/09/22 7: 33 PM) Pulse Rate [55-90 bpm] 63 bpm 61 bpm 66 bpm (09/10/22 12:43 AM) (09/09/22 9:36 PM) (09/09/22 7: 33 PM) Blood Pressure [90-138/55-84 154/74 mm Hg 147/71 mm Hg 122 /66 mm Hg mm Hg] *H* *H* (09/09/22 7:33 PM ) (09/10/22 12:43 AM) (09/09/22 9:36 PM) Respiratory Rate [16-30 16 br/min 20 br/min 18 br/mi n br/min] (09/10/22 1:13 AM) (09/10/22 12:43 AM) (09/09/22 9: 36 PM) Temperature [96.8-100.4 DegF] 98 DegF (09/09/22 7:33 PM) Mode of Delivery (Oxygen) Room air Room air Room a ir (09/10/22 12:43 AM) (09/09/22 9:36 PM) (09/09/22 7: 33 PM) Temperature Route Oral (09/09/22 7:33 PM) Note Malathi Brice MD: PERFORM Event Display: Patient Education Leaflets Authored Date: [id number] Shoulder Sprain ?? [id number] Shoulder Sprain A sprain is a stretching or tearing of the ligaments that hold a joint together. A sprain may take up to 8 weeks or longer to fully heal, depending on how severe it is. Moderate to severe shoulder sprains are treated with a sling or shoulder immobilizer. Minor sprains can be treated without any special support. Home care The following guidelines will help you care for your injury at home: ??? If a sling was given to you, leave it in place for the time advised by your healthcare provider. If you aren???t sure how long to wear it, ask for advice. If the sling becomes loose, adjust it so that your forearm is parallel tothe ground. Your shoulder should feel well supported. ??? Put an ice pack on the injured area for 20minutes every 1 to 2 hours the first day. You can make your own ice pack by putting ice cubes in a plastic bag. A bag of frozen peas or something similar works well too. Wrap the bag in a thin towel. Continue with ice packs 3 to 4 times a day for the next 2 to 3 days. Then use the pack as needed to ease pain and swelling. ??? You may use acetaminophen or ibuprofen to control pain, unless another painmedicine was prescribed.??If you have chronic liver or kidney disease, talk with your healthcare provider before using these medicines. Also talk with your provider if you???ve had a stomach ulcer, have gastrointestinal bleeding, or take a blood thinner. ??? Shoulder joints become stiff if left in a sling for too long. You should start range of motion exercises usually about 7 to 10 days after the injury. Talk with your provider to find out what type of exercises to do and how soon to start. ?? Follow-up care Follow up with your healthcare provider, or as advised. Any X-rays you had today don???t show any broken bones, breaks, or fractures. Sometimes fractures don???t show up on the first X-ray. Bruises and sprains can sometimes hurt as much as a fracture. These injuries can take time to heal completely. If your symptoms don???t improve or they get worse, talkwith your provider. You may need repeat X-rays or other treatments. ?? When to seek medical advice Call your healthcare provider right away??if any of the following occur: ??? Shoulder pain or swelling in your arm that gets worse ??? Fingers become cold, blue, numb, or tingly ??? Large amount of bruising of the shoulder or upper arm ??? Fever or chills ?? Last Reviewed Date: 2022 ?? [id number] [employer]. All rights reserved. This information is not intended as a substitute for professional medical care. Always follow your healthcare professional's instructions. ?? XR Shoulder - left GE 2 Views [facility] , CIS S: TRANSCRIBE Antoine Kelly MD: VERIFY Event Display: Result: Authored Date: [id number] Shoulder Min 2 Views Left, views Reason: Trauma; with Pain; Clinical Question(s): Fracture COMPARISON: None. FINDINGS: No fracture or dislocation. Moderate glenohumeral joint space narrowing and marginal spurring. Mild degenerative changes of the AC joint. The portion of the clavicle included on the exam is normal. No calcification of the rotator cuff. IMPRESSION: No acute abnormality WSN: [id number] Ordering Physician: Malathi Brice Dictated By: Antoine Kelly MD Dictated Date/Time: 09/09/22 8:44 pm Reviewed By: Antoine Kelly MD Signed By: Antoine Kelly MD Signed Date/Time: 09/09/22 8:44 pm Transcribed By: TOM Transcribed Date/Time: 09/09/22 8:36 pm XR Femur - left 2 Views [facility] , CIS S: TRANSCRIBE Phil Bell MD: VERIFY Robert[Radiology] Addie ANDRE: SIGN Event Display: Result: Authored Date: [id number] Pelvis 1 or 2 Views, Tibia/Fibula 2 Views Left, Knee 3 Views Left, Femur 2 Views Left Reason: Trauma; With Pain; Clinical Question(s): Fracture COMPARISON: None. FINDINGS: No fracture involving the pelvis, left femur, knee, left tibia and fibula. Right greater left mild hip osteoarthritis. Mild medial femorotibial joint space narrowing. Unremarkable ankle joint. Unremarkable soft tissues. IMPRESSION: No acute abnormality involving the pelvis, left femur, knee, left tibia and fibula. I have personally reviewed the images and I agree with this report. WSN: [id number] Ordering Physician: Indigo Long Dictated By: Robert[Radiology] Addie ANDRE Dictated Date/Time: 09/10/22 0:02 am Reviewed By: Phil Bell MD Signed By: Phil Bell MD Signed Date/Time: 09/10/22 0:07 am Transcribed By: TOM Transcribed Date/Time: 09/09/22 11:57 pm XR Knee - left 3 Views [facility] , CIS S: TRANSCRIBE Phil Bell MD: VERIFY Robert[Radiology] , Addie: SIGN Event Display: Result: Authored Date: [id number] Pelvis 1 or 2 Views, Tibia/Fibula 2 Views Left, Knee 3 Views Left, Femur 2 Views Left Reason: Trauma; With Pain; Clinical Question(s): Fracture COMPARISON: None. FINDINGS: No fracture involving the pelvis, left femur, knee, left tibia and fibula. Right greater left mild hip osteoarthritis. Mild medial femorotibial joint space narrowing. Unremarkable ankle joint. Unremarkable soft tissues. IMPRESSION: No acute abnormality involving the pelvis, left femur, knee, left tibia and fibula. I have personally reviewed the images and I agree with this report. WSN: [id number] Ordering Physician: Indigo Long Dictated By: Robert[Radiology] Addie ANDRE Dictated Date/Time: 09/10/22 0:02 am Reviewed By: Phil Bell MD Signed By: Phil Bell MD Signed Date/Time: 09/10/22 0:07 am Transcribed By: TOM Transcribed Date/Time: 09/09/22 11:57 pm XR Tibia and Fibula - left 2 Views [facility] , CIS S: TRANSCRIBE Phil Bell MD: ARELIS Jones[Radiology] Addie ANDRE: SIGN Event Display: Result: Authored Date: [id number] Pelvis 1 or 2 Views, Tibia/Fibula 2 Views Left, Knee 3 Views Left, Femur 2 Views Left Reason: Trauma; With Pain; Clinical Question(s): Fracture COMPARISON: None. FINDINGS: No fracture involving the pelvis, left femur, knee, left tibia and fibula. Right greater left mild hip osteoarthritis. Mild medial femorotibial joint space narrowing. Unremarkable ankle joint. Unremarkable soft tissues. IMPRESSION: No acute abnormality involving the pelvis, left femur, knee, left tibia and fibula. I have personally reviewed the images and I agree with this report. WSN: [id number] Ordering Physician: Indigo Long Dictated By: Robert[Radiology] Addie ANDRE Dictated Date/Time: 09/10/22 0:02 am Reviewed By: Phil Bell MD Signed By: Phil Bell MD Signed Date/Time: 09/10/22 0:07 am Transcribed By: TOM Transcribed Date/Time: 09/09/22 11:57 pm XR Pelvis 1 or 2 Views [facility] , CIS S: TRANSCRIBE Phil Bell MD: VERIFY Robert[Radiology] Addie ANDRE: SIGN Event Display: Result: Authored Date: [id number] Pelvis 1 or 2 Views, Tibia/Fibula 2 Views Left, Knee 3 Views Left, Femur 2 Views Left Reason: Trauma; With Pain; Clinical Question(s): Fracture COMPARISON: None. FINDINGS: No fracture involving the pelvis, left femur, knee, left tibia and fibula. Right greater left mild hip osteoarthritis. Mild medial femorotibial joint space narrowing. Unremarkable ankle joint. Unremarkable soft tissues. IMPRESSION: No acute abnormality involving the pelvis, left femur, knee, left tibia and fibula. I have personally reviewed the images and I agree with this report. WSN: [id number] Ordering Physician: Indigo Long Dictated By: Robert[Radiology] Addie ANDRE Dictated Date/Time: 09/10/22 0:02 am Reviewed By: Phil Bell MD Signed By: Phil Bell MD Signed Date/Time: 09/10/22 0:07 am Transcribed By: TOM Transcribed Date/Time: 09/09/22 11:[address] Cervical spine WO contrast [facility] , CIS S: TRANSCRIBE Heather Chiang MD: VERIFY Charlie Ibrahim MD: SIGN Event Display: Result: Authored Date: [id number] CT Head/Brain W/O Contrast, CT Cervical Spine W/O Contrast INDICATION: Trauma. TECHNIQUE: Noncontrast head CT using axial technique was reconstructed in axial and coronal planes. Noncontrast spiral CT through the cervical spine was formatted in 3 planes. Automatic tube modulationwas used for the cervical spine and iterative dose reconstruction was used for both the head and cervical spine to optimize scan parameters and image quality. CTDIvol Body: 11.30 mGy, DLP Body: 285 mGy*cm. CTDIvol Head: 41.30 mGy, DLP Head: 672 mGy*cm. COMPARISON: None. FINDINGS: Commission Associate View Findings, Lines and Tubes: None. BRAIN AND EXTRA-AXIAL SPACES: No parenchymal hemorrhage, midline shift, or mass effect. Calvillo-white matter differentiation is well preserved. No acute infarct. Ventricles, sulci, and basilar cisterns are normal. No white matter lesions. No subarachnoid hemorrhage. No subdural or epidural collection. CALVARIUM, SKULL BASE, AND SOFT TISSUES: No fractures or suspicious bony lesions. The paranasal sinuses and mastoid air cells are clear. Visualized orbits and globes are intact. The extracranial soft tissues are unremarkable. CERVICAL SPINE: No fracture. No acute osseous abnormalities. Normal alignment. No locked or perched facet. Mild multilevel degenerative disc space narrowing and end plate irregularity. Anterior cervical spine discectomy and fusion at C5-C6. OTHER BONES: No acute abnormality. CERVICAL SOFT TISSUES AND LUNG APICES: Atrophic calcified left submandibular gland. Visualized lung apices are clear. IMPRESSION: No acute abnormality of the head or cervical spine. Atrophic calcified left submandibular gland. I have personally reviewed the images and I agree with this report. WSN: [id number] Ordering Physician: Malathi Brice Dictated By: Charlie Ibrahim MD Dictated Date/Time: 09/10/22 7:13 am Reviewed By: Heather Chiang MD Signed By: Heather Chiang MD Signed Date/Time: 09/10/22 7:18 am Transcribed By: TOM Transcribed Date/Time: 09/10/22 3:[address] Head WO contrast [facility] , CIS S: TRANSCRIBE Heather Chiang MD: VERIFY Charlie Ibrahim MD: SIGN Event Display: Result: Authored Date: [id number] CT Head/Brain W/O Contrast, CT Cervical Spine W/O Contrast INDICATION: Trauma. TECHNIQUE: Noncontrast head CT using axial technique was reconstructed in axial and coronal planes. Noncontrast spiral CT through the cervical spine was formatted in 3 planes. Automatic tube modulationwas used for the cervical spine and iterative dose reconstruction was used for both the head and cervical spine to optimize scan parameters and image quality. CTDIvol Body: 11.30 mGy, DLP Body: 285 mGy*cm. CTDIvol Head: 41.30 mGy, DLP Head: 672 mGy*cm. COMPARISON: None. FINDINGS: Commission Associate View Findings, Lines and Tubes: None. BRAIN AND EXTRA-AXIAL SPACES: No parenchymal hemorrhage, midline shift, or mass effect. Calvillo-white matter differentiation is well preserved. No acute infarct. Ventricles, sulci, and basilar cisterns are normal. No white matter lesions. No subarachnoid hemorrhage. No subdural or epidural collection. CALVARIUM, SKULL BASE, AND SOFT TISSUES: No fractures or suspicious bony lesions. The paranasal sinuses and mastoid air cells are clear. Visualized orbits and globes are intact. The extracranial soft tissues are unremarkable. CERVICAL SPINE: No fracture. No acute osseous abnormalities. Normal alignment. No locked or perched facet. Mild multilevel degenerative disc space narrowing and end plate irregularity. Anterior cervical spine discectomy and fusion at C5-C6. OTHER BONES: No acute abnormality. CERVICAL SOFT TISSUES AND LUNG APICES: Atrophic calcified left submandibular gland. Visualized lung apices are clear. IMPRESSION: No acute abnormality of the head or cervical spine. Atrophic calcified left submandibular gland. I have personally reviewed the images and I agree with this report. WSN: [id number] Ordering Physician: Malathi Brice Dictated By: Charlie Ibrahim MD Dictated Date/Time: 09/10/22 7:13 am Reviewed By: Heather Chiang MD Signed By: Heather Chiang MD Signed Date/Time: 09/10/22 7:18 am Transcribed By: TOM Transcribed Date/Time: 09/10/22 3:18 am Patient Care team information Care Team PersonnelName: Lin James NP Position: [facility] Associate Professional Member Role: PCP Address: Address: [address] [facility], [place] [address]- Name: Mely Chacon NP Position: [facility] Associate Professional Member Role: ED Physician Car Racer Address: Address: [address] [facility] [place] [address]- Name: Trevon Hall Position: [facility] ED TA [facility] Name: Vale Kong RN Position: [facility] ED RN W/OE and Tasks Name: Delma Abbott RN Position: [facility] ED RN W/OE and Tasks Member Role: Patient Care Provider Name: Osmany Duarte MD Position: [facility] Resident Member Role: Admitting Physician Address: Address: [address] [place] [address] [place] [address]- Care Team Related PersonsName: ALLI MARIN Address: [address] [place] [id number]
--- OUTSIDE RECORDS SUMMARY | 2022-09-17 10:45 | XMS_ITS | Continuity of Care Document ---
:1955 Author Organization [facility] Address [address] [place] [id number]- Care Team Providers Name Role Phone Erika CHAPARRO, Lin Tidwell Primary Care Physician [id number] Date(s): 07/26/22 - 09/02/22 [facility] [address] [place] [address]- Attending Physician: Brad Santoyo MD Admitting Physician: Yarelis ANDRE, Brad Referring Physician: Amada Vieyra NP Allergies, Adverse Reactions, Alerts No Known Medication [...] Team PersonnelName: Erika CHAPARRO, Lin Tidwell Position: [facility] Associate Professional Member Role: PCP Address: Address: [address] [facility], [place] [address]- Care Team Related PersonsName: ALLI MARIN Address: [address] [place] [address]
--- NOTE | 2022-09-17 11:18 | PC.NURSE ---
Alert and oriented, coming from home for trip and fall d/t Parkinsons. Reporting left shoulder pain, denies blood thinners or LOC.
[2022-09-17] MEDS: Ketorolac Tromethamine 30 MG/ML VIAL 15 MG IM (11:24)
[2022-09-17] MEDS: Acetaminophen 325 MG TABLET 650 MG PO (11:25)
--- NOTE | 2022-09-17 11:43 | PC.NURSE ---
Sling applied to left shoulder
== END 2022-09-17 12:27 | disposition home or self-care (01) ==
PROVIDERS: Emergency Provider Student in an Organized Health Care Education/Training Program; PCP Internal Medicine
DX: M25.512 Pain in left shoulder (principal); R51.9 Headache, unspecified; M54.2 Cervicalgia; R07.89 Other chest pain; Z79.899 Other long term (current) drug therapy
CPT/HCPCS: 70450; 71046; 72125; 73030; 93005; 96372; 99285; J1885

== ENCOUNTER 2022-09-17 13:12 | Emergency (ER) | payer MEDICARE, SELFPAY ==
[2022-09-17 13:27] VITALS: BMI 31.1
[2022-09-17 13:28] VITALS: BP 173/80; PULSE 64; RESP 16; O2SAT 98
--- NOTE | 2022-09-17 13:30 | ED_ITS ---
HPI - Fall General Chief Complaint: Fall Stated Complaint: Fall 09/17/22 Time Seen by Provider: 09/17/22 13:30 Source: patient Mode of arrival: wheelchair Limitations: no limitations History of Present Illness HPI Narrative: 59-year-old male in a wheelchair he does have Parkinson's was seen earlier today by me was worked up with negative x-rays and was waiting in the waiting room for his daughter and fell. Patient has no new injuries, daughter was notified and feels he is unsafe to go home. He did walk out to the waiting room with assistance by a dental equipment technician by his side. complaint: fall Related Data Home Medications Medication Instructions Recorded Confirmed carbidopa 25 mg-levodopa 100 mg 1 tab PO BID@0700,1300 12/23/21 08/16/22 tablet gabapentin 100 mg capsule 200 mg PO DAILY 12/23/21 08/16/22 gabapentin 300 mg capsule 300 mg PO BEDTIME 12/23/21 08/16/22 lisinopril 10 mg tablet 10 mg PO DAILY 12/23/21 08/16/22 melatonin 3 mg tablet 3 mg PO BEDTIME PRN Sleep 12/23/21 08/16/22 ropinirole 0.25 mg tablet 1 tab PO BEDTIME 04/23/22 08/16/22 acetaminophen 650 mg 1 tab PO Q8H PRN pain 08/16/22 08/16/22 tablet,extended release Previous Rx's Medication Instructions Recorded metoprolol succinate 25 mg 25 mg PO BEDTIME #30 tabs 08/18/22 tablet,extended release 24 hr Allergies Allergy/AdvReac Type Severity Reaction Status Date / Time No Known Allergies Allergy Verified 12/16/21 02:35 Review of Systems Review of Systems: Review of systems: General: Patient denies any fever chills recent illness or falls Musculoskeletal: Denies back pain or body aches or other injuries HEENT: denies headache, runny nose, ear pain Respiratory: denies shortness of breath, cough Cardiovascular: no chest pain or palpitations : denies dysuria, frequency Abdomen: no nausea vomiting denies abdominal pain Extremities: no swelling, no pain Skin: no diaphoresis Yes all other systems are reviewed and are negative [facility] Past Medical History Medical History (Updated 09/17/22 @ 14:47 by Yogesh Clifford DO) Atrial fibrillation with rapid ventricular response Cardiomyopathy CHF (congestive heart failure) HTN (hypertension) Parkinson disease Surgical History H/O spinal fusion Family History Family History Mother CAD (coronary artery disease) Social History Social History Household Members: None Housing: House Do you presently have visiting nurse or other home services: Yes Unable to assess alcohol history related to: Unknown Alcohol intake: former Patient Tobacco Use Status: Former Tobacco user e-Cigarette/Vaping Use: Never Used Substance Use Type: Marijuana Advance Directives: Yes Advance Directives on File: Yes Advance Directives Date on File: 12/27/21 service: No Current occupational status: retired Physical Exam Vital Signs: Vital Signs: Last Vital Signs Pulse 64 09/17/22 13:28 Resp 16 09/17/22 13:28 BP 173/80 H 09/17/22 13:28 Pulse Ox 98 09/17/22 13:28 O2 Del Method 09/17/22 13:28 BMI result Body Mass Index 31.1 General: Well-appearing well-nourished in no signs of distress HEENT: Normocephalic atraumatic Neck: No signs of JVD, no masses no tenderness or lymphadenopathy Cardiovascular: Regular rate and rhythm Respiratory: Clear to auscultation bilaterally Abdomen: Soft nontender no masses Extremities: Normal pedal pulses no signs of edema normal reflexes bilateral lower extremities good strength good pulses Skin: Dry warm no rashes Back: No tenderness full ROM Medical Decision Making Medical Decision Making MDM Narrative: Patient here after a fall while in the waiting room patient has no complaints at this time I will send off labs patient with PT And case management. Patient is medically cleared I had the patient evaluated by crisis. Differential Diagnosis Differential Diagnoses: The differential diagnosis associated with the presentation includes Become sending Parkinson's disease patient not have any labs I will send off some lab work will consult Case Management as well as physical therapy. Admission/Observation Consideration of admission/observation: Escalation of care including admission/observation considered Lab Data MDM Lab Attestation statement: I reviewed the patient's lab results. 09/17/22 14:14 09/17/22 14:14 Labs: Lab Results 09/17/22 09/17/2209/17/23 Range/Units 14:10 14:14 14:14 WBC 10.9 H (4.8-10.8) X10*3/uL RBC 4.52 L (4.60-5.80) X10*6/uL Hgb 13.9 L (14.0-18.0) g/dl Hct 41.8 L (42.0-52.0) % MCV 92.5 (80.0-98.0) fL MCH 30.8 (27.0-33.0) pg MCHC 33.3 (31.0-36.0) g/dl RDW 13.2 (11.0-16.0) % Plt Count 340 (160-400) X10*3/uL MPV 8.8 L (9.4-12.4) fL Immature Gran % (Auto) 0.3 (0.0-0.4) % Neut % (Auto) 77.9 H (45-73) % Lymph % (Auto) 11.0 L (20-40) % [place] % (Auto) 10.4 (2-11) % Eos % (Auto) 0.2 (0-4) % Baso % (Auto) 0.2 (0-2) % Lymph # (Auto) 1.2 (1.2-4.9) X10*3/uL [place] # (Auto) 1.1 (0.1-1.2) X10*3/uL Eos # (Auto) 0.0 (0.0-0.4) X10*3/uL Baso # (Auto) 0.0 (0.0-0.2) X10*3/uL Abs Immat Gran (auto) 0.03 (0.00-0.03) X10*3/uL Absolute Neuts (auto) 8.5 H (2.0-8.3) x10*3/uL Absolute Nucleated RBC 0.000 (0.0-0.012) X10*3/uL Nucleated RBC % (auto) 0.0 (0.0-0.2) /100WBC Sodium 140 (135-145) mmol/L Potassium 3.9 (3.3-5.1) mmol/L Chloride 104 (96-108) mmol/L Carbon Dioxide 24 (22-29) mmol/L Anion Gap 16 (12-20) BUN 11 (9-16) mg/dL Creatinine 0.66 (0.5-1.4) mg/dL Estim Creat Clear Calc 133.7 Estimated GFR > 60 Random Glucose 100 (60-115) mg/dL Calcium 9.1 (8.4-10.2) mg/dL COVID-19 (MIR) Negative (Negative) COVID-19 Clin Com See Note Independent Interpretation I performed an independent interpretation of an: Plain X-Ray Discharge Plan Discharge Clinical Impression: Contusion of left shoulder, Recurrent falls, Parkinson disease Patient Disposition: Still a Patient Prescriptions: No Action melatonin 3 mg Tablet 3 mg PO BEDTIME PRN (Reason: Sleep) lisinopril 10 mg Tablet 10 mg PO DAILY gabapentin 300 mg Capsule 300 mg PO BEDTIME gabapentin 100 mg Capsule 200 mg PO DAILY carbidopa-levodopa 25-100 mg Tablet 1 tab PO BID@0700,1300 ropinirole 0.25 mg tablet 1 tab PO BEDTIME acetaminophen 650 mg tablet extended release 1 tab PO Q8H PRN (Reason: pain) metoprolol succinate 25 mg tablet extended release 24 hr 25 mg PO BEDTIME Qty: 30 0RF
[2022-09-17 14:20] LABS: MANUAL DIFF FLAG NO
[2022-09-17 14:21] LABS: Basophils Percent Auto 0.2 % (0-2); Eosinophils Percent Auto 0.2 % (0-4); Hematocrit 41.8 % (42.0-52.0); Hemoglobin 13.9 g/dl (14.0-18.0); Imm Gran Abs Auto 0.03 X10*3/uL (0.00-0.03); Imm Gran Pct Auto 0.3 % (0.0-0.4); Lymphocytes Absolute Auto 1.2 X10*3/uL (1.2-4.9); Mean Corpuscular HGB Conc 33.3 g/dl (31.0-36.0); Mean Corpuscular Hemoglobin 30.8 pg (27.0-33.0); Mean Corpuscular Volume 92.5 fL (80.0-98.0); Mean Platelet Volume 8.8 fL (9.4-12.4); Monocytes Absolute Auto 1.1 X10*3/uL (0.1-1.2); Monocytes Percent Auto 10.4 % (2-11); Neutrophils Absolute Auto 8.5 x10*3/uL (2.0-8.3); Neutrophils Percent Auto 77.9 % (45-73); Platelet Count 340 X10*3/uL (160-400); Red Blood Count 4.52 X10*6/uL (4.60-5.80); Red Cell Distribution Width 13.2 % (11.0-16.0); White Blood Count 10.9 X10*3/uL (4.8-10.8)
[2022-09-17 14:38] LABS: COVID-19 Test Negative (Negative); IDNOW Serial# 16C4AD1C
[2022-09-17 14:41] LABS: Anion Gap 16 (12-20); Blood Urea Nitrogen 11 mg/dL (9-16); Calcium 9.1 mg/dL (8.4-10.2); Carbon Dioxide 24 mmol/L (22-29); Chloride 104 mmol/L (96-108); Creatinine Clr Calc Pharmacy 133.7; Estimated Glomerular Filt Rate > 60; Glucose Random 100 mg/dL (60-115); Potassium 3.9 mmol/L (3.3-5.1); Sodium 140 mmol/L (135-145)
--- NOTE | 2022-09-17 16:16 | MHC.CM.ED ---
Received case management consult from Dr Clifford. Patient was in the ER earlier today due to a fall. Was waiting for transportation home and fell in the waiting room. Met with patient in regards to discharge planning. Patient lives with sig other, uses a cane/walker and is active with a VNA but doesn't know which agency. Patient was discharged from [facility] on 09/15. Patient aware physical therapy will not be available for eval until tomorrow 09/18. Patient aware. Patient doesn't feel [facility] will accept patient back because insurance won't pay. Spoke with patient's sig other/HCP, Meena, via telephone at [phone]. Meena does not feel patient can safely return home. He has fallen a couple of times this week. Meena works full-time. Her cell phone doesn't work in the building she works in. She can be reached via telephone at [phone] Sunday through Sunday during the day. Meena requesting referral to [facility]. Referral made via [facility]. Continue to monitor for d/c needs.
--- NOTE | 2022-09-17 17:01 | PHA.MEDREC ---
Pharmacy Consult ? Medication Reconciliation Pharmacy has completed the medication reconciliation. Spoke with who went over all medications
--- NOTE | 2022-09-17 22:04 | PC.NURSE ---
patient brought to ED overflow bed 7 from main ED. patient jumped up out of bed stating he needed to pee. patient extremely unsteady on his feet. redirected back into bed immediately. provided with urinal. placed in hospital bed with bed alarm on. patient in front of nurses station. will continue to monitor. did not come with any paperwork from ED
--- NOTE | 2022-09-17 22:59 | PC.NURSE ---
patient continuously attempting to get out of bed, when redirected to bed patient states no im fucking leaving this place patient presenting with increased agitation and aggression but eventually becomes redirectable back into bed. bed alarm continues to be on. will continue to monitor
--- NOTE | 2022-09-17 23:35 | PC.NURSE ---
pt continues to get out of bed despite constant redirection and is high fall risk - MD Vaughn made aware - ordering po ativan to help relax patient and decrease agitation, restlessness
[2022-09-17] MEDS: LORazepam 1 MG TABLET PO (23:44)
--- NOTE | 2022-09-18 00:59 | PC.NURSE ---
pt continues to attempt to get out of bed multiple times per minute. bed alarmed, patient continues to wake up other patients in the department. patient does not follow instructions d/t baseline dementia. high fall risk , safety risk. MD Vaughn aware and ordering zyprexa po.
[2022-09-18] MEDS: OLANZapine 5 MG TABLET PO (01:11)
--- NOTE | 2022-09-18 03:35 | PC.NURSE ---
patient sleeping comfortably on stretcher. respirations even and unlabored,in no apparent distress. within view of nurses station. will continue to monitor
[2022-09-18 06:15] VITALS: PULSE 90; RESP 18; O2SAT 97
--- NOTE | 2022-09-18 09:16 | MHC.CM.PN ---
Addendum entered by Cristela Carias 09/18/22 14:26: [facility] THE ONLY [facility] FOLLOWING PT EVAL UPLOADED Original Note: PT AWAITING STR PLACEMENT PREFERRED SNFS ARE NOT OFFERING BEDS REFERRAL EXPANDED TO LOCAL SNFS ONLY WILL UPDATE REFERRAL ONCE PT EVAL AVAILABLE
[2022-09-18 09:17] VITALS: BP 136/90; PULSE 130; RESP 20; O2SAT 98
[2022-09-18] MEDS: lisinopriL 10 MG TABLET PO (10:12)
[2022-09-18] MEDS: Gabapentin 100 MG CAPSULE PO ×2 (10:12→18:06)
[2022-09-18] MEDS: amLODIPine Besylate 2.5 MG TABLET PO ×3 (10:12→21:28)
--- NOTE | 2022-09-18 10:59 | MHC.EDTECH ---
Fed patient his breakfast, gave him a bed bath, changed patients gown and bedding. Meaghan Escobar
[2022-09-18 11:15] VITALS: BP 135/79; PULSE 91; O2SAT 96
--- NOTE | 2022-09-18 12:32 | PC.NURSE ---
ASSUMED CARE OF THIS PT AT 0700. PT ASSISTED WITH BREAKFAST. COMPLETE BED CHANGE AND INCONTINENT CARE DONE. PT SEEN BY PHYSICAL THERAPIST AND IS CURRENTLY SITTING UP IN RECLINER.
--- NOTE | 2022-09-18 13:43 | PC.NURSE ---
pharmacy contacted for outstanding medication.
--- NOTE | 2022-09-18 14:00 | PC.NURSE ---
PT BACK TO BED. SIGNIFICANT OTHER IS AT HIS BEDSIDE.
[2022-09-18] MEDS: Carbidopa/Levodopa 25/100 TABLET 2 TAB PO ×2 (14:16→21:39)
[2022-09-18 15:34] VITALS: BP 140/86; PULSE 129; RESP 18; TEMP 37.2; O2SAT 94
--- NOTE | 2022-09-18 17:32 | MHC.CM.ED ---
[facility] following. Referrals placed 25 miles. PT recommending trial STR, then LTC or home care 05/03. Pt has Parkinson's and is in a w/c. CM following for d/c planning.
[2022-09-18 20:44] VITALS: RESP 17
[2022-09-18] MEDS: Metoprolol Succinate ER 25 MG TAB.ER.24H PO (21:26)
[2022-09-18] MEDS: Gabapentin 300 MG CAPSULE PO (21:28)
[2022-09-18] MEDS: rOPINIRole HCL 0.25 MG TABLET PO (21:28)
[2022-09-18 21:31] VITALS: BP 119/68; PULSE 63; RESP 17; TEMP 36.7; O2SAT 95
[2022-09-18] MEDS: Melatonin 3 MG TABLET PO (23:45)
--- NOTE | 2022-09-18 23:45 | PC.NURSE ---
Pt was given sleep meds due to he was pacing and not able to sleep.
[2022-09-19 06:21] VITALS: BP 144/71; PULSE 74; RESP 17; TEMP 36.2; O2SAT 98
--- NOTE | 2022-09-19 06:22 | PC.NURSE ---
Pt's V/S are stable, pt was medicated accordingly. pt continue to stand off from the bed and asking for him to leave. pt's a/o x1. Pt was changed and has [place] Cath. Pt bed [facility] is on for safety.
--- NOTE | 2022-09-19 06:25 | PC.NURSE ---
Pt's V/S are stable, pt was medicated accordingly. pt continue to stand off from the bed and asking for him to leave. pt's a/o x1. Pt was changed and has [place] Cath. Pt bed alarm is on due to frequent fall. The urine culture has not been collected due pt is urinary and bowel incontinence.
[2022-09-19 07:50] VITALS: BP 125/68; PULSE 65; RESP 18; TEMP 36.3; O2SAT 97
[2022-09-19] MEDS: lisinopriL 10 MG TABLET PO (08:29)
[2022-09-19] MEDS: amLODIPine Besylate 2.5 MG TABLET PO (08:30)
[2022-09-19] MEDS: Carbidopa/Levodopa 25/100 TABLET 2 TAB PO (08:30)
[2022-09-19] MEDS: Gabapentin 100 MG CAPSULE PO (08:30)
--- NOTE | 2022-09-19 09:35 | MHC.CM.ED ---
Addendum entered by Yancy Michaud 09/19/22 09:51: Received return telephone call from [facility]. [facility] agreeable to [facility]. [facility] aware. Trying to confirm transfer time. Original Note: Patient remains in ER. [facility] is willing to offer a bed. Attempted to reach patient's sig other, Emerita, via telephone at [phone] and [phone]. Left messages requesting return telephone call. Continue to monitor for d/c needs.
--- NOTE | 2022-09-19 10:30 | MHC.CM.ED ---
Patient will leave for [facility] via BLS at 12pm. Patient, Faye SANDOVAL and Tiny BURNETTE aware. Left voicemail for patient's sig other/HCP, Emerita via work telephone at [phone] ext [phone] with discharge info. Continue to monitor for d/c needs.
--- NOTE | 2022-09-19 11:54 | PC.NURSE ---
ASSUMED CARE AT 0700. HE DENIES PAIN, VSS. PT UP IN RECLINER FOR BREAKFAST. MEDS GIVEN DOCUMENTED, NO COMPLAINTS. PT ACCEPTED TO [facility]. WARM HANDOVER GIVEN TO NURSE WONG ON THE UNIT WHERE THE PT WILL BE ADMITTED TO. PT AWARE OF PLAN. PT'S NEPHEW IS AT HIS BEDSIDE.
== END 2022-09-19 12:41 | disposition skilled nursing facility (03) ==
PROVIDERS: Emergency Provider Student in an Organized Health Care Education/Training Program; PCP Internal Medicine
DX: S40.012A Contusion of left shoulder, initial encounter (principal); G20 Parkinson's disease; W01.0XXA Fall on same level from slipping, tripping and stumbling without subsequent striking against object, initial encounter; Y93.9 Activity, unspecified; Y92.9 Unspecified place or not applicable; Y99.9 Unspecified external cause status; Z91.81 History of falling; Z20.822 Contact with and (suspected) exposure to COVID-19; Z20.828 Contact with and (suspected) exposure to other viral communicable diseases; Z79.899 Other long term (current) drug therapy
CPT/HCPCS: 80048; 85025; 87635; 97163; 99285

== ENCOUNTER 2022-10-28 10:57 | Emergency (ER) | payer MEDICARE, SELFPAY ==
--- NOTE | ~2022-10-28 | XR_ITS ---
EXAMINATION: XR HUMERUS, LEFT XR SCAPULA, LEFT XR SHOULDER, LEFT XR ELBOW, LEFT XR RIBS WITH CHEST, LEFT CLINICAL INFORMATION: Injury. COMPARISON: Left shoulder and left chest radiographs dated 09/17/2022. TECHNIQUE: AP and lateral views of the humerus. AP and lateral views of the left scapula. AP internal rotation, external rotation, and scapular Y views of the left shoulder. AP and lateral views of the left elbow. PA view of the chest as well as 3 views of the left ribs. FINDINGS: Left Humerus: No fracture. Anterosuperior dislocation of the humeral head better seen on the scapular and shoulder radiographs. No concerning lytic or blastic osseous lesion. No abnormal soft tissue calcification. Left Scapula: Anterosuperior dislocation of the humeral head with the humeral head apex located anteriorly and superiorly to the acromioclavicular joint. No scapular fracture. No concerning lytic or blastic osseous lesion. Degenerative spurring in the region of the coracoclavicular ligament. Left Shoulder: Anterosuperior humeral head dislocation. No definite fracture fragment. Prominent inferior glenohumeral marginal osteophytes. No concerning lytic or blastic osseous lesion. Left Elbow: No acute fracture or dislocation. No joint space narrowing or marginal osteophytes. No osseous erosion. Enthesopathic spurring at the lateral epicondyle. Left Ribs and Chest: No airspace consolidation. No pleural effusion or pneumothorax. Unremarkable cardiomediastinal silhouette. No displaced fracture. No concerning lytic or blastic osseous lesion. No abnormal soft tissue calcification. XR/XR shoulder LT min 2V IMPRESSION: 1. Anterosuperior dislocation of the humeral head which is located anteriorly and superiorly to the acromioclavicular joint. No associated fracture. 2. Moderate glenohumeral osteoarthritis. 3. No distal humeral or elbow fracture. 4. No displaced rib fracture.
--- NOTE | ~2022-10-28 | XR_ITS ---
EXAMINATION: XR HUMERUS, LEFT XR SCAPULA, LEFT XR SHOULDER, LEFT XR ELBOW, LEFT XR RIBS WITH CHEST, LEFT CLINICAL INFORMATION: Injury. COMPARISON: Left shoulder and left chest radiographs dated 09/17/2022. TECHNIQUE: AP and lateral views of the humerus. AP and lateral views of the left scapula. AP internal rotation, external rotation, and scapular Y views of the left shoulder. AP and lateral views of the left elbow. PA view of the chest as well as 3 views of the left ribs. FINDINGS: Left Humerus: No fracture. Anterosuperior dislocation of the humeral head better seen on the scapular and shoulder radiographs. No concerning lytic or blastic osseous lesion. No abnormal soft tissue calcification. Left Scapula: Anterosuperior dislocation of the humeral head with the humeral head apex located anteriorly and superiorly to the acromioclavicular joint. No scapular fracture. No concerning lytic or blastic osseous lesion. Degenerative spurring in the region of the coracoclavicular ligament. Left Shoulder: Anterosuperior humeral head dislocation. No definite fracture fragment. Prominent inferior glenohumeral marginal osteophytes. No concerning lytic or blastic osseous lesion. Left Elbow: No acute fracture or dislocation. No joint space narrowing or marginal osteophytes. No osseous erosion. Enthesopathic spurring at the lateral epicondyle. Left Ribs and Chest: No airspace consolidation. No pleural effusion or pneumothorax. Unremarkable cardiomediastinal silhouette. No displaced fracture. No concerning lytic or blastic osseous lesion. No abnormal soft tissue calcification. XR/XR ribs LT min 3V w CXR1V IMPRESSION: 1. Anterosuperior dislocation of the humeral head which is located anteriorly and superiorly to the acromioclavicular joint. No associated fracture. 2. Moderate glenohumeral osteoarthritis. 3. No distal humeral or elbow fracture. 4. No displaced rib fracture.
--- NOTE | ~2022-10-28 | XR_ITS ---
EXAMINATION: XR HUMERUS, LEFT XR SCAPULA, LEFT XR SHOULDER, LEFT XR ELBOW, LEFT XR RIBS WITH CHEST, LEFT CLINICAL INFORMATION: Injury. COMPARISON: Left shoulder and left chest radiographs dated 09/17/2022. TECHNIQUE: AP and lateral views of the humerus. AP and lateral views of the left scapula. AP internal rotation, external rotation, and scapular Y views of the left shoulder. AP and lateral views of the left elbow. PA view of the chest as well as 3 views of the left ribs. FINDINGS: Left Humerus: No fracture. Anterosuperior dislocation of the humeral head better seen on the scapular and shoulder radiographs. No concerning lytic or blastic osseous lesion. No abnormal soft tissue calcification. Left Scapula: Anterosuperior dislocation of the humeral head with the humeral head apex located anteriorly and superiorly to the acromioclavicular joint. No scapular fracture. No concerning lytic or blastic osseous lesion. Degenerative spurring in the region of the coracoclavicular ligament. Left Shoulder: Anterosuperior humeral head dislocation. No definite fracture fragment. Prominent inferior glenohumeral marginal osteophytes. No concerning lytic or blastic osseous lesion. Left Elbow: No acute fracture or dislocation. No joint space narrowing or marginal osteophytes. No osseous erosion. Enthesopathic spurring at the lateral epicondyle. Left Ribs and Chest: No airspace consolidation. No pleural effusion or pneumothorax. Unremarkable cardiomediastinal silhouette. No displaced fracture. No concerning lytic or blastic osseous lesion. No abnormal soft tissue calcification. XR/XR humerus LT IMPRESSION: 1. Anterosuperior dislocation of the humeral head which is located anteriorly and superiorly to the acromioclavicular joint. No associated fracture. 2. Moderate glenohumeral osteoarthritis. 3. No distal humeral or elbow fracture. 4. No displaced rib fracture.
--- NOTE | ~2022-10-28 | XR_ITS ---
EXAMINATION: XR HUMERUS, LEFT XR SCAPULA, LEFT XR SHOULDER, LEFT XR ELBOW, LEFT XR RIBS WITH CHEST, LEFT CLINICAL INFORMATION: Injury. COMPARISON: Left shoulder and left chest radiographs dated 09/17/2022. TECHNIQUE: AP and lateral views of the humerus. AP and lateral views of the left scapula. AP internal rotation, external rotation, and scapular Y views of the left shoulder. AP and lateral views of the left elbow. PA view of the chest as well as 3 views of the left ribs. FINDINGS: Left Humerus: No fracture. Anterosuperior dislocation of the humeral head better seen on the scapular and shoulder radiographs. No concerning lytic or blastic osseous lesion. No abnormal soft tissue calcification. Left Scapula: Anterosuperior dislocation of the humeral head with the humeral head apex located anteriorly and superiorly to the acromioclavicular joint. No scapular fracture. No concerning lytic or blastic osseous lesion. Degenerative spurring in the region of the coracoclavicular ligament. Left Shoulder: Anterosuperior humeral head dislocation. No definite fracture fragment. Prominent inferior glenohumeral marginal osteophytes. No concerning lytic or blastic osseous lesion. Left Elbow: No acute fracture or dislocation. No joint space narrowing or marginal osteophytes. No osseous erosion. Enthesopathic spurring at the lateral epicondyle. Left Ribs and Chest: No airspace consolidation. No pleural effusion or pneumothorax. Unremarkable cardiomediastinal silhouette. No displaced fracture. No concerning lytic or blastic osseous lesion. No abnormal soft tissue calcification. XR/XR elbow LT min 3V IMPRESSION: 1. Anterosuperior dislocation of the humeral head which is located anteriorly and superiorly to the acromioclavicular joint. No associated fracture. 2. Moderate glenohumeral osteoarthritis. 3. No distal humeral or elbow fracture. 4. No displaced rib fracture.
--- NOTE | ~2022-10-28 | XR_ITS ---
EXAMINATION: XR SHOULDER, LEFT CLINICAL INFORMATION: Post reduction COMPARISON: Left shoulder 10/28/2022, 3:23 PM TECHNIQUE: Two views of the left shoulder. XR/XR shoulder LT min 2V FINDINGS/IMPRESSION: There is continued anterior dislocation of the humeral head relative to the glenoid. There is mild improved alignment of the humeral head and glenoid when compared with the prior study of 10/28/2022, 3:23 PM.
--- NOTE | ~2022-10-28 | XR_ITS ---
EXAMINATION: XR SHOULDER, LEFT CLINICAL INFORMATION: Left shoulder pain. COMPARISON: Left shoulder radiographs dated 10/28/2022. TECHNIQUE: Two views of the left shoulder. XR/XR shoulder LT min 2V FINDINGS/IMPRESSION: Again seen is anterosuperior displacement of the humeral head relative to the bony glenoid. A definitive acute fracture is not seen. The visualized left ribs are intact.
[2022-10-28 11:01] VITALS: BP 137/83; BP 150/90; PULSE 112; PULSE 114; RESP 16; TEMP 36.4; O2SAT 96; O2SAT 97; BMI 22.3
--- OUTSIDE RECORDS SUMMARY | 2022-10-28 11:23 | XMS_ITS ---
:1955 Author Care Team Providers Name Role Phone KAITLYN Nava Shawn Leon Primary Care Provider [phone] ROWAN ANDRE Allergies Code Code System Name [...] by ? 08/15/2019 XR, Chest, 2 View [facility] [address] [place] [address] (Work Place) Results Lab [...]
--- NOTE | 2022-10-28 11:27 | ED.FALL ---
HPI - Fall General Chief Complaint: Fall Stated Complaint: Fall, shoulder pain per EMS Time Seen by Provider: 10/28/22 11:18 History of Present Illness HPI Narrative: Patient with history of Parkinson's and frequent falls complains of falling twice today while transferring from wheelchair to other chair complains of left shoulder pain left elbow pain left rib pain left posterior back pain, he did not hit his head he did not injure his neck he denies any other new pains or injuries, denies number worse weakness or tingling denies change to bowel or bladder denies any shortness of breath He denies any preceding dizziness he denies fainting or feeling faint he had no palpitations no chest pain no headache no loss of muscle strength no confusion before or after his fall, he recalls everything Related Data Home Medications Medication Instructions Recorded Confirmed carbidopa 25 mg-levodopa 100 mg 2 tab PO TID@0800,1200,2100 12/23/21 09/17/22 tablet gabapentin 100 mg capsule 100 mg PO BID@0800,1700 12/23/21 09/17/22 gabapentin 300 mg capsule 300 mg PO BEDTIME 12/23/21 09/17/22 lisinopril 10 mg tablet 10 mg PO DAILY 12/23/21 09/17/22 melatonin 3 mg tablet 3 mg PO BEDTIME PRN Sleep 12/23/21 09/17/22 ropinirole 0.25 mg tablet 1 tab PO BEDTIME 04/23/22 09/17/22 amlodipine 2.5 mg tablet 1 tab PO TID 09/17/22 09/17/22 Previous Rx's Medication Instructions Recorded metoprolol succinate 25 mg 25 mg PO BEDTIME #30 tabs 08/18/22 tablet,extended release 24 hr Allergies Allergy/AdvReac Type Severity Reaction Status Date / Time No Known Allergies Allergy Verified 12/16/21 02:35 [facility] Past Medical History [facility] Narrative: Patient with Parkinson's, frequent falls, recently discharged from rehab Source: nursing notes reviewed Medical History (Updated 10/28/22 @ 19:04 by YOMAIRA Ag) Atrial fibrillation with rapid ventricular response Cardiomyopathy CHF (congestive heart failure) HTN (hypertension) Parkinson disease Surgical History H/O spinal fusion Family History Family History Mother CAD (coronary artery disease) Social History Social History Household Members: None Housing: House Do you presently have visiting nurse or other home services: Yes Unable to assess alcohol history related to: Unknown Alcohol intake: never Patient Tobacco Use Status: Former Tobacco user Smoked in Last 30 Days: No e-Cigarette/Vaping Use: Never Used Use of substances other than those prescribed or required for medical reasons: No Substance Use Type: Marijuana Advance Directives: Yes Advance Directives on File: Yes Advance Directives Date on File: 12/27/21 service: No Current occupational status: retired Physical Exam Vital Signs: Vital Signs: Last Vital Signs Temp 98.0 F 10/28/22 15:07 Pulse 69 10/28/22 15:07 Resp 16 10/28/22 15:07 BP 144/68 H 10/28/22 15:07 Pulse Ox 96 10/28/22 11:01 O2 Del Method 10/28/22 11:01 BMI result Body Mass Index 22.3 General appearance is no acute distress he is calm cooperative The head is normocephalic atraumatic Pupils equal round reactive to light extraocular motions are intact The neck has full range of motion there is no tenderness in the neck The chest is clear to auscultation with full symmetric equal breath sounds There is some bruising on the mid left anterior lateral rib area, there is tenderness in the area, no deformities The abdomen is soft and nontender no rebound no guarding Extremities the left shoulder is tender to the touch and held in internal rotation and very uncomfortable to move, skin is intact and neurovascular intact distal, there is also tenderness to the left humerus and the left elbow Other extremities no tenderness swelling or deformity and normal range of motion in right arm and bilateral lower extremities Skin no laceration Neuro no focal motor or sensory deficits, cranial nerves 2-12 intact as tested, interaction comprehension and expression are all normal Course Course Course Narrative: X-rays were done of patient's left shoulder, left ribs, left humerus left scapula and left elbow Left shoulder showed an anterior superior left shoulder dislocation, other x-rays did not show any fractures Well-appearing patient very cooperative calm who injured shoulder and ribs in a fall Multiple efforts were made to reduce the shoulder dislocation, multiple times it popped and the deformity was reduced and it seemed to be reduced completely and then within seconds it popped out again in the visible deformity was clear again Reduction was done by myself and by attending physicians Cheng and then later Dr. walton, all of which seem to work very briefly and then the deformity reappeared as the joint slipped out of place Repeat x-rays confirmed that the shoulder was not reduced Further discussion with the patient he has had multiple falls is shoulder has been hurting quite a bit for at least 2 weeks and it is very possible it has been dose dislocated for anywhere up to 2 weeks Case was discussed with orthopedist who advised this patient could be seen in follow-up and that there was no emergent surgery today Discussion with the patient he cannot function at home without the use of his left arm he has been falling frequently he is now unable to use his walker he can not use his left arm to pull himself to transfer from bed to standing and it is unsafe for him to go home so plan is for him to be placed in a rehab Social work consult and physical therapy consult are placed Dr. walton was aware of the case and was signed out to physician psychology assistant mehrdad alvarez Medications Administered Discontinued Medications Generic Name Dose Route Start Last Admin Trade Name Freq PRN Reason Stop Dose Admin Oxycodone HCl 5 mg 10/28/22 12:23 10/28/22 12:27 Oxycodone Hcl Immed Release 5 Mg Tablet PO 10/28/22 12:24 5 mg ONCE ONE Administration Oxycodone HCl 5 mg 10/28/22 14:53 10/28/22 15:04 Oxycodone Hcl Immed Release 5 Mg Tablet PO 10/28/22 14:54 5 mg ONCE ONE Administration Discharge Plan Discharge Clinical Impression: Anterior dislocation of left shoulder, Difficulty walking, Frequent falls Prescriptions: No Action melatonin 3 mg Tablet 3 mg PO BEDTIME PRN (Reason: Sleep) lisinopril 10 mg Tablet 10 mg PO DAILY gabapentin 300 mg Capsule 300 mg PO BEDTIME gabapentin 100 mg Capsule 100 mg PO BID@0800,1700 carbidopa-levodopa 25-100 mg Tablet 2 tab PO TID@0800,1200,2100 ropinirole 0.25 mg tablet 1 tab PO BEDTIME metoprolol succinate 25 mg tablet extended release 24 hr 25 mg PO BEDTIME Qty: 30 0RF amlodipine 2.5 mg tablet 1 tab PO TID
[2022-10-28] MEDS: oxyCODONE HCl Immed Release 5 MG TABLET PO ×2 (12:27→15:04)
[2022-10-28 15:07] VITALS: BP 144/68; PULSE 69; RESP 16; TEMP 36.7
[2022-10-28 19:32] LABS: MANUAL DIFF FLAG NO
[2022-10-28 19:33] LABS: Basophils Percent Auto 0.6 % (0-2); Eosinophils Absolute Auto 0.1 X10*3/uL (0.0-0.4); Eosinophils Percent Auto 0.8 % (0-4); Hematocrit 40.6 % (42.0-52.0); Hemoglobin 13.5 g/dl (14.0-18.0); Imm Gran Abs Auto 0.05 X10*3/uL (0.00-0.03); Imm Gran Pct Auto 0.7 % (0.0-0.4); Lymphocytes Absolute Auto 1.5 X10*3/uL (1.2-4.9); Lymphocytes Percent Auto 20.7 % (20-40); Mean Corpuscular HGB Conc 33.3 g/dl (31.0-36.0); Mean Corpuscular Hemoglobin 30.8 pg (27.0-33.0); Mean Corpuscular Volume 92.7 fL (80.0-98.0); Mean Platelet Volume 8.6 fL (9.4-12.4); Monocytes Absolute Auto 0.7 X10*3/uL (0.1-1.2); Monocytes Percent Auto 9.1 % (2-11); Neutrophils Absolute Auto 4.9 x10*3/uL (2.0-8.3); Neutrophils Percent Auto 68.1 % (45-73); Platelet Count 391 X10*3/uL (160-400); Red Blood Count 4.38 X10*6/uL (4.60-5.80); Red Cell Distribution Width 12.8 % (11.0-16.0); White Blood Count 7.2 X10*3/uL (4.8-10.8)
[2022-10-28 19:51] LABS: Anion Gap 11 (12-20); Blood Urea Nitrogen 12 mg/dL (9-16); Calcium 8.6 mg/dL (8.4-10.2); Carbon Dioxide 30 mmol/L (22-29); Chloride 106 mmol/L (96-108); Creatinine Clr Calc Pharmacy 100.7; Estimated Glomerular Filt Rate > 60; Glucose Random 141 mg/dL (60-115); Potassium 3.6 mmol/L (3.3-5.1); Sodium 143 mmol/L (135-145)
[2022-10-28 19:56] LABS: IDNOW Serial# BCCEAD1C
[2022-10-28 19:57] LABS: COVID-19 Test Negative (Negative)
[2022-10-28 21:27] VITALS: BP 121/71; PULSE 78; RESP 18; TEMP 36.6; O2SAT 97
[2022-10-29 00:47] VITALS: BP 118/66; PULSE 74; RESP 16; TEMP 36.6; O2SAT 96
[2022-10-29] MEDS: Metoprolol Succinate ER 25 MG TAB.ER.24H PO ×2 (03:13→21:52)
[2022-10-29] MEDS: rOPINIRole HCL 0.25 MG TABLET PO ×2 (03:13→21:54)
[2022-10-29] MEDS: Gabapentin 300 MG CAPSULE PO ×2 (03:13→21:52)
[2022-10-29] MEDS: Melatonin 3 MG TABLET PO (03:13)
[2022-10-29 04:22] VITALS: BP 140/70; PULSE 69; RESP 17; O2SAT 95
[2022-10-29 06:57] VITALS: BP 148/77; PULSE 85; RESP 16; TEMP 36.6; O2SAT 95
[2022-10-29] MEDS: lisinopriL 10 MG TABLET PO (08:21)
[2022-10-29] MEDS: Gabapentin 100 MG CAPSULE PO ×2 (08:21→18:23)
[2022-10-29] MEDS: Carbidopa/Levodopa 25/100 TABLET 2 TAB PO ×3 (08:21→21:52)
--- NOTE | 2022-10-29 18:27 | PC.NURSE ---
camera put in place for safety.. patient increasingly restless needing frequent reminders to stay in bed. verbally redirectable at this time
[2022-10-29 23:44] VITALS: BP 123/74; PULSE 63; RESP 17; TEMP 36.4; O2SAT 96
--- NOTE | 2022-10-29 23:47 | MHC.EDTECH ---
i took over assignment, vitals were taken and a [place] cath was put on, warm blankets were given pt is now comfortable
--- NOTE | 2022-10-30 03:12 | PC.NURSE ---
Pt sleeping at the bedside in no apparent distress. Breaths are even, regular, and unlabored with equal chest rises. Will continue to monitor.
[2022-10-30 06:12] VITALS: BP 131/79; PULSE 92; RESP 17; TEMP 36.7; O2SAT 96
--- NOTE | 2022-10-30 06:13 | MHC.EDTECH ---
pt morning vitals were taken and entered,
--- NOTE | 2022-10-30 07:37 | PC.NURSE ---
Patient attempted to get out of bed, easily redirectable. Breakfast tray set up for patient.
[2022-10-30] MEDS: Carbidopa/Levodopa 25/100 TABLET 2 TAB PO ×2 (07:46→12:06)
[2022-10-30 07:48] VITALS: BP 141/76; PULSE 69; RESP 18; O2SAT 96
[2022-10-30] MEDS: lisinopriL 10 MG TABLET PO (07:48)
[2022-10-30] MEDS: Gabapentin 100 MG CAPSULE PO (07:48)
--- NOTE | 2022-10-30 08:00 | PC.NURSE ---
report given to Louie in [facility].
--- NOTE | 2022-10-30 09:14 | MHC.EDTECH ---
pt had a large BM. pt was cleaned and repositioned. pt resting peacefully at this time.
[2022-10-30] MEDS: oxyCODONE HCl Immed Release 5 MG TABLET PO (11:22)
[2022-10-30] MEDS: amLODIPine Besylate 2.5 MG TABLET PO ×2 (12:05→14:33)
[2022-10-30] MEDS: oxyCODONE HCl ER 10 MG TAB.ER.12H PO (12:24)
--- NOTE | 2022-10-30 13:16 | MHC.CM.ED ---
Addendum entered by Laquita Celaya 10/30/22 14:39: F/U on referral for CM services 10/29. Pt presents to [facility] from home after a fall w/displaced left shoulder. Attempts to reposition failed: per Ortho, pt can f/u outpt but will need STR placement. Pt resides alone but has a significant other, Meena who assists and is his HCP. Pt has no services and uses a walker at baseline. Meena provides transportation. HCP on file and verified. Addendum entered by Laquita Celaya 10/30/22 14:37: Pt offered and accepted a bed at [facility] for a 3pm BLS transport time from [place]. Met with pt and his HCP Meena to discuss and answer questions. Both are pleased with offer. ED Care team aware of transport time. Original Note: Met with pt to discuss PT eval and rehab options: pt receptive to a broad search area which was made: awaiting acceptance
[2022-10-30 14:00] VITALS: BP 113/61; PULSE 58; RESP 16; TEMP 36.3; O2SAT 95
== END 2022-10-30 15:30 | disposition skilled nursing facility (03) ==
PROVIDERS: Physician Assistant Medical; Emergency Provider Emergency Medicine; PCP Internal Medicine
DX: S43.015A Anterior dislocation of left humerus, initial encounter (principal); W07.XXXA Fall from chair, initial encounter; R26.2 Difficulty in walking, not elsewhere classified; R29.6 Repeated falls; Z91.81 History of falling; Z20.822 Contact with and (suspected) exposure to COVID-19; I48.20 Chronic atrial fibrillation, unspecified; I11.0 Hypertensive heart disease with heart failure; I50.9 Heart failure, unspecified; G20 Parkinson's disease; F12.90 Cannabis use, unspecified, uncomplicated; Z79.899 Other long term (current) drug therapy; Y93.89 Activity, other specified; Y92.009 Unspecified place in unspecified non-institutional (private) residence as the place of occurrence of the external cause; Y99.9 Unspecified external cause status
CPT/HCPCS: 36415; 71101; 73010; 73030; 73060; 73080; 80048; 85025; 87635; 97162; 99285

== ENCOUNTER 2022-11-02 22:48 | Emergency (ER) | payer MEDICARE, SELFPAY ==
--- NOTE | ~2022-11-02 | XR_ITS ---
EXAMINATION: XR SHOULDER, LEFT CLINICAL INFORMATION: Fall COMPARISON: 10/28/2012 TECHNIQUE: Two views of the left shoulder. FINDINGS: There is anterior dislocation of the left humeral head in relation to the glenoid. This is more pronounced than on the previous. No acute fractures seen. The acromioclavicular joint remains aligned. The visualized ribs are intact. The visualized lung is clear. XR/XR shoulder LT min 2V IMPRESSION: Anterior left shoulder dislocation. No acute fracture seen.
[2022-11-02 22:56] VITALS: BP 125/70; BP 132/96; PULSE 62; PULSE 65; RESP 14; TEMP 36.5; O2SAT 95; O2SAT 96; BMI 25.1
--- NOTE | 2022-11-02 23:29 | ED.FALL ---
HPI - Fall General Chief Complaint: Fall Stated Complaint: POST FALL/ L SHOULDER DISLOCATED Time Seen by Provider: 11/02/22 23:16 Source: patient and EMS Mode of arrival: EMS Limitations: no limitations History of Present Illness HPI Narrative: 67-year-old male came in from long-term, patient is wheelchair-bound due to Parkinson's with risk of multiple falls, patient came in today for evaluation after a mechanical fall at the long-term hurting his left shoulder, patient had repetitive injury to the left shoulder causing chronic dislocation of the left shoulder. Patient decline head injury or neck pain, no CP, no SOB, no abdominal pain, no extremities pain. Related Data Home Medications Medication Instructions Recorded Confirmed carbidopa 25 mg-levodopa 100 mg 2 tab PO TID@0800,1200,2100 12/23/21 10/29/22 tablet gabapentin 100 mg capsule 100 mg PO BID@0800,1700 12/23/21 10/29/22 gabapentin 300 mg capsule 300 mg PO BEDTIME 12/23/21 10/29/22 lisinopril 10 mg tablet 10 mg PO DAILY 12/23/21 10/29/22 melatonin 3 mg tablet 3 mg PO BEDTIME PRN Sleep 12/23/21 10/29/22 ropinirole 0.25 mg tablet 1 tab PO BEDTIME 04/23/22 10/29/22 amlodipine 2.5 mg tablet 1 tab PO TID 09/17/22 10/29/22 Previous Rx's Medication Instructions Recorded metoprolol succinate 25 mg 25 mg PO BEDTIME #30 tabs 08/18/22 tablet,extended release 24 hr oxycodone 10 mg tablet,crush 10 mg PO BID #30 tabs 10/30/22 resistant,extended release 12 hr oxycodone 5 mg tablet 5 mg PO Q6H PRN pain #30 tabs 10/30/22 Allergies Allergy/AdvReac Type Severity Reaction Status Date / Time No Known Allergies Allergy Verified 12/16/21 02:35 Review of Systems Review of Systems: All other systems are reviewed and are negative Constitutional: Reports as per HPI and Reports no additional constitutional complaints Eyes: Reports as per HPI and Reports no additional eye complaints Reports system reviewed and no additional complaints, except as documented Cardiovascular: Reports as per HPI and Reports no additional cardiovascular complaints Respiratory: Reports as per HPI and Reports no additional respiratory complaints Gastrointestinal: Reports as per HPI and Reports no additional gastrointestinal complaints Genitourinary: Reports no additional female genitourinary complaints Musculoskeletal: Reports no additional musculoskeletal complaints Skin/Breast: Reports system reviewed and no additional complaints, except as docu Psychiatric: Reports no additional psychiatric complaints Endocrine: Reports no additional endocrine complaints Hematologic/Lymphatic: Reports no additional hematologic/lymphatic complaints Allergic/Immunologic: Reports no additional allergic/immunologic complaints Reports system reviewed and no additional complaints, except as documented and Reports Abnormal speech present [facility] Past Medical History Medical History Atrial fibrillation with rapid ventricular response Cardiomyopathy CHF (congestive heart failure) HTN (hypertension) Parkinson disease Surgical History H/O spinal fusion Family History Family History Mother CAD (coronary artery disease) Social History Social History Household Members: None Housing: House Do you presently have visiting nurse or other home services: Yes Unable to assess alcohol history related to: Unknown Alcohol intake: never Patient Tobacco Use Status: Former Tobacco user e-Cigarette/Vaping Use: Never Used Substance Use Type: Marijuana Advance Directives Date on File: 12/27/21 service: No Current occupational status: retired Physical Exam Vital Signs: Vital Signs: Last Vital Signs Temp 97.7 F 11/02/22 22:56 Pulse 62 11/02/22 22:56 Resp 14 11/02/22 22:56 BP 125/70 11/02/22 22:56 Pulse Ox 96 11/02/22 22:56 O2 Del Method Room Air 11/02/22 22:56 BMI result Body Mass Index 25.1 Vital signs have been reviewed as appeared to be correct. Blood pressure normal. Heart rate normal. Respiration rate normal. Temperature normal. Oxygen saturation normal. Appearance: Alert. Oriented X3. No acute distress. Head: Normal external exam. Normocephalic. Atraumatic. No Davalos signs noted. No raccoon eyes noted Eyes: PERRLA. EOMI. Conjunctiva and sclera normal. Eyelids normal. ENT: TM's Normal. Pharynx normal. Uvula midline. Moist mucous membranes. No trismus noted. No drooling noted. No muffled voice noted. Neck: Normal inspection. Neck supple. FROM. No adenopathy. Thyroid Normal. No meningeal signs. No neck mass noted. CVS: Normal heart rate and rhythm. Heart sound normal. No murmurs noted. Pulses normal throughout. Respiratory: No respiratory distress. Painless inspiration. Breath sounds normal. No wheezes/rales/rhonchi noted. Chest nontender. No accessory muscle usage noted or decreased air movement noted. Abdomen: Soft and nontender. Bowel sounds normal in all 4 quadrants. No distention noted. No organomegaly noted. No visible injury noted. Back: No CVA tenderness. Full range of motion noted. Skin: Skin warm and dry. Normal skin color. Normal skin turgor. No rashes/lesions/lacerations noted. Extremities: Left shoulder held an adduction position unable to abduction Neuro: Oriented X 3. Cranial nerve exam: II-XII are grossly intact No motor deficit. No sensory deficit. Reflexes normal. Course Course Course Narrative: 67-year-old male from long-term patient with chronic Parkinson's disease in wheelchair ridden, patient had a mechanical fall today landing on nose left shoulder in a patient with a chronic left shoulder dislocation had previous ED visits for similar symptoms, knee will discharge the patient to follow up with Ortho. Medical Decision Making Differential Diagnosis Differential Diagnoses: The differential diagnosis associated with the presentation includes (Left shoulder dislocation, left shoulder fracture.) Independent Interpretation I performed an independent interpretation of an: Plain X-Ray (Left shoulder: Anterior left shoulder dislocation.) Radiology Impression Discussion of test interpretation with radiology: I have reviewed the radiologist's reading. Discharge Plan Discharge Clinical Impression: Dislocation of shoulder region Patient Disposition: er [facility] Instructions: Shoulder Dislocation (ED) Prescriptions: No Action melatonin 3 mg Tablet 3 mg PO BEDTIME PRN (Reason: Sleep) lisinopril 10 mg Tablet 10 mg PO DAILY gabapentin 300 mg Capsule 300 mg PO BEDTIME gabapentin 100 mg Capsule 100 mg PO BID@0800,1700 carbidopa-levodopa 25-100 mg Tablet 2 tab PO TID@0800,1200,2100 ropinirole 0.25 mg tablet 1 tab PO BEDTIME oxycodone 5 mg tablet 5 mg PO Q6H PRN (Reason: pain) Qty: 30 0RF Rx Instructions: Partial Fill upon patient request. oxycodone 10 mg tablet,oral only,ext.rel.12 hr 10 mg PO BID Qty: 30 0RF Rx Instructions: Partial Fill upon patient request. metoprolol succinate 25 mg tablet extended release 24 hr 25 mg PO BEDTIME Qty: 30 0RF amlodipine 2.5 mg tablet 1 tab PO TID Referrals: Jack Dunaway MD [Physician] -
[2022-11-02 23:46] VITALS: BP 129/42; PULSE 60; RESP 16; TEMP 36.5; O2SAT 96
--- NOTE | 2022-11-03 00:21 | MHC.EDTECH ---
Oscar called at 0020 for a bls transfer back to facility[facility]. ETA 0200AM Vir[facility] aware
--- NOTE | 2022-11-03 02:16 | PC.NURSE ---
Pt being discharge and returning to [facility] via ambulance. IV line removed with no difficulty. Pt tolerated well. Report given to nurse Wu at [facility]. Pt aware of plan of care
== END 2022-11-03 02:20 | disposition skilled nursing facility (03) ==
PROVIDERS: Emergency Provider Emergency Medicine; PCP Internal Medicine
DX: M24.412 Recurrent dislocation, left shoulder (principal); M25.512 Pain in left shoulder; I48.20 Chronic atrial fibrillation, unspecified; I11.0 Hypertensive heart disease with heart failure; I50.9 Heart failure, unspecified; G20 Parkinson's disease; F12.90 Cannabis use, unspecified, uncomplicated; Z87.891 Personal history of nicotine dependence; Z79.01 Long term (current) use of anticoagulants
CPT/HCPCS: 73030; 99283

== ENCOUNTER 2022-11-03 07:38 | Emergency (ER) | payer MEDICARE, SELFPAY ==
--- NOTE | ~2022-11-03 | CT_ITS ---
EXAMINATION: CT HEAD WITHOUT CONTRAST CLINICAL INFORMATION: Status post fall with head strike. COMPARISON: 09/17/[address] scan. TECHNIQUE: Contiguous axial imaging was performed from the skull base to vertex without intravenous administration of contrast. Coronal and sagittal reformatted images were obtained. This CT examination was performed using dose optimization techniques as appropriate, variously including the following: *Automated exposure control *Adjustment of mA and/or kV according to patient size (this includes techniques or standardized protocols for targeted exams where dose is matched to indication/reason for exam; i.e. extremities or head) *Use of iterative reconstruction technique DLP: 1508 mGy-cm FINDINGS: There is mild widening of the cortical sulci and associated ventriculomegaly. The lateral ventricles are symmetrical. The third and fourth ventricles are in their normal midline position. The basilar and prepontine cisterns are unremarkable. Mild periventricular microvascular changes are seen. There is no acute intra or extracerebral abnormality. There is no mass effect or midline shift. Sections through the bony calvarium are unremarkable. The orbits are intact. The paranasal sinuses show small maxillary sinus retention cyst/inflammatory polyps without interval change, left greater than right. The mastoid air cells are clear. CT/CT head/brain wo IV con IMPRESSION: No acute intracranial pathology.
--- NOTE | ~2022-11-03 | CT_ITS ---
EXAMINATION: CT SHOULDER WITHOUT CONTRAST, LEFT CLINICAL INFORMATION: Multiple falls. Left shoulder pain. COMPARISON: Multiple priors, most recent left shoulder radiographs dated 11/02/2022. TECHNIQUE: Contiguous axial CT images of the left shoulder were obtained without contrast. Multiplanar reformats were provided and reviewed. This CT examination was performed using dose optimization techniques as appropriate, variously including the following: *Automated exposure control *Adjustment of mA and/or kV according to patient size (this includes techniques or standardized protocols for targeted exams where dose is matched to indication/reason for exam; i.e. extremities or head) *Use of iterative reconstruction technique. DOSE: 1508 mGy-cm FINDINGS: Anterior superior dislocation of the humeral head as seen on the prior radiographs. The humeral head currently abuts the anteromedial aspect of the coracoid process. There are multiple small fracture fragments displaced anteriorly and inferiorly to the coracoid process with the largest measuring up to 1.1 cm. These are in the region of the proximal short head biceps tendon and likely indicate a fracture and associated avulsion injury. The largest fracture fragment is displaced inferiorly by approximately 2 cm. No additional fracture or dislocation. Acromioclavicular and glenohumeral marginal osteophytes. No concerning lytic or blastic osseous lesion. Moderate glenohumeral joint effusion. 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 The rotator cuff tendons are not well evaluated on CT examination, however, given the degree of displacement of the humeral head, there are complete versus near-complete tears of the entirety of the rotator cuff. No axillary lymphadenopathy. No abnormal soft tissue mass or fluid collection. The visualized left lung is clear. CT/CT shoulder LT wo IV con IMPRESSION: 1. Anterior superior dislocation of the humeral head as seen on the prior radiographs. Humeral head currently abuts the anteromedial aspect of the coracoid process. There are multiple small fracture fragments displaced anteriorly and inferiorly to the coracoid process with the largest measuring up to 1.1 cm. These are in the region of the proximal short head biceps tendon and likely indicate a fracture and associated avulsion injury. The largest fracture fragment is displaced inferiorly by approximately 2 cm. 2. Mild glenohumeral and acromioclavicular osteoarthritis. Moderate joint effusion. 3. The rotator cuff tendons are not well evaluated on CT examination, however, given the degree of displacement of the humeral head, there are complete versus near-complete tears of the entirety of the rotator cuff. 4. 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
--- NOTE | ~2022-11-03 | CT_ITS ---
EXAMINATION: CT CERVICAL SPINE WITHOUT CONTRAST CLINICAL INFORMATION: Neck pain status post fall. COMPARISON: None available. TECHNIQUE: Multiple axial images of the cervical spine were obtained without the administration of intravenous contrast coronal and sagittal reformatted images were obtained. This CT examination was performed using dose optimization techniques as appropriate, variously including the following: *Automated exposure control *Adjustment of mA and/or kV according to patient size (this includes techniques or standardized protocols for targeted exams where dose is matched to indication/reason for exam; i.e. extremities or head) *Use of iterative reconstruction technique DLP: 399.61 mGy-cm FINDINGS: The patient is status post anterior fusion at C5-6 showing good anatomic alignment and no evidence for hardware malfunction. Mild to moderate multilevel marginal osteophyte formation and mild neural foraminal narrowing is seen most pronounced at C4-5 and C5-6. The odontoid process is intact. The facet joints are unremarkable. The spinous and transverse processes are intact. The cervical soft tissues are unremarkable. There is no lymphadenopathy. The thyroid gland is unremarkable. The lung apices show mild centrilobular emphysema. CT/CT cervical spine wo IV con IMPRESSION: 1. Status post C5-6 anterior fusion without acute abnormality. 2. Mild centrilobular emphysema in the lung apices.
[2022-11-03 07:47] VITALS: BMI 25.1
--- NOTE | 2022-11-03 07:53 | ED_ITS ---
HPI - Fall General Chief Complaint: Fall Stated Complaint: Multiple witnessed falls, from SNF per EMS Time Seen by Provider: 11/03/22 07:49 Source: patient and EMS Mode of arrival: EMS Limitations: no limitations History of Present Illness HPI Narrative: 67 y/o male with history of Parkinson's disease with history of multiple falls, wheel-chair bound with ongoing left shoulder deformity who presents to the ER from [facility] via EMS for evaluation after he fell out of his wheelchair this morning and hit his chin on the floor. He did not lose consciousness. He was just seen here last night for similar presentation. X-ray showed anterior left shoulder dislocation, no fractures. He was discharged back to the nursing facility with plan for outpatinet f/u with Ortho. He states today he fell out of his wheelchair. Fell again onto the left shoulder after striking his face on the floor. Does not complain of any pain at this time. MD complaint: fall Onset (ago): minute(s) Fall from: wheelchair Place fall occurred: long term/SNF Loss of consciousness: none Prolonged down time: no Symptoms prior to fall: none Location of injury: face Location of injury - extremities: left: shoulder Associated symptoms (after fall): denies Related Data Home Medications Medication Instructions Recorded Confirmed carbidopa 25 mg-levodopa 100 mg 2 tab PO TID@0800,1200,2100 12/23/21 10/29/22 tablet gabapentin 100 mg capsule 100 mg PO BID@0800,1700 12/23/21 10/29/22 gabapentin 300 mg capsule 300 mg PO BEDTIME 12/23/21 10/29/22 lisinopril 10 mg tablet 10 mg PO DAILY 12/23/21 10/29/22 melatonin 3 mg tablet 3 mg PO BEDTIME PRN Sleep 12/23/21 10/29/22 ropinirole 0.25 mg tablet 1 tab PO BEDTIME 04/23/22 10/29/22 amlodipine 2.5 mg tablet 1 tab PO TID 09/17/22 10/29/22 Previous Rx's Medication Instructions Recorded metoprolol succinate 25 mg 25 mg PO BEDTIME #30 tabs 08/18/22 tablet,extended release 24 hr oxycodone 10 mg tablet,crush 10 mg PO BID #30 tabs 10/30/22 resistant,extended release 12 hr oxycodone 5 mg tablet 5 mg PO Q6H PRN pain #30 tabs 10/30/22 Allergies Allergy/AdvReac Type Severity Reaction Status Date / Time No Known Allergies Allergy Verified 12/16/21 02:35 Review of Systems Review of Systems: Yes all other systems are reviewed and are negative [facility] Past Medical History Medical History Atrial fibrillation with rapid ventricular response Cardiomyopathy CHF (congestive heart failure) HTN (hypertension) Parkinson disease Surgical History H/O spinal fusion Family History Family History Mother CAD (coronary artery disease) Social History Social History Household Members: None Housing: House Do you presently have visiting nurse or other home services: Yes Unable to assess alcohol history related to: Unknown Alcohol intake: never Patient Tobacco Use Status: Former Tobacco user Smoked in Last 30 Days: No e-Cigarette/Vaping Use: Never Used Use of substances other than those prescribed or required for medical reasons: No Substance Use Type: Marijuana Advance Directives: Yes Advance Directives on File: Yes Advance Directives Date on File: 12/27/21 service: No Current occupational status: retired Physical Exam Vital Signs: Vital Signs: Last Vital Signs Temp 98.7 F 11/03/22 08:25 Pulse 66 11/03/22 09:42 Resp 18 11/03/22 09:42 BP 143/72 H 11/03/22 09:42 Pulse Ox 97 11/03/22 09:42 O2 Del Method Room Air 11/03/22 09:42 BMI result Body Mass Index 25.1 Appearance: Alert. Oriented X2. No acute distress. Head/face: normocephalic. 1cm superficial laceration to the chin without active bleeding. Eyes: Pupils equal, round and reactive to light. ENT: Pharynx normal. Neck: Normal inspection. C- collar in place CVS: Normal heart rate and rhythm. Pulses normal. Respiratory: No respiratory distress. Breath sounds normal. Abdomen: Soft and nontender. +BS x4 Skin: Skin warm and dry. Normal skin color. Normal skin turgor. No rashes. Extremities: No lower extremity edema. Left shoulder appears anteriorly dislocated, large old ecchymotic area on anterior shoulder. limited ROM of the left arm due to pain. no point tenderness of the humerus. normal passive ROM of the left elbow Neuro: Oriented X 2. Confused. moves all 4 extremities, follows simple commands. strength equal and symmetrical throughout Procedures Laceration Laceration 1: Site: face Size (cm): 1 Description: linear Depth: simple, single layer Pre-repair: irrigated extensively and deep structures intact Skin layer closed with: other (exofin skin adhesive ) Medical Decision Making Medical Decision Making MDM Narrative: 67-year-old male with history of Parkinson's disease, recurrent falls, with a chronic dislocation of the left shoulder (5th ER visit since September for falls/shoulder issues) presents back to the ER less than 24 hours after he was discharged for re-evaluation of another fall. He fell out of the wheelchair and struck his chin on the ground. No LOC. He is not on anticoagulation. Small laceration on the chin was amenable to skin adhesive for closure. He is awake and alert. Not complaining of significant shoulder pain. CT of the head and neck did not show any acute traumatic injuries. CT scan of the shoulder was performed after discussion with Dr. Ford. Unfortunately it does show several fracture fragments. Orthopedics was contacted. Management remains the same- sling for comfort and outpatient follow-up with orthopedics. At this time patient is stable for discharge back to his nursing facility. Differential Diagnosis Differential Diagnoses: The differential diagnosis associated with the pr esentation includes Concussion w ithout LOC, superficial laceration, less likely ICH, epidural hematoma. Possible acute proximal humerus fracture Consult Healthcare Provider Management of the patient was discussed with: [employer] Officer Delmis GIRALDO from Ortho contacted re: CT shoulder - recommendations remain she same - sling for comfort and outpatient follow up Independent Interpretation I performed an independent interpretation of an: CT Scan Interpretation: CT head without acute bleed or stroke CT cervical spine without any appreciated fx or traumatic subluxation CT shoulder with anterior dislocation, multiple fracture chips seen, agree w/ radiology read Radiology Impression Discussion of test interpretation with radiology: I have reviewed the rad iologist's reading. Radiologist Impression: CT/CT shoulder LT wo IV con IMPRESSION: 1. Anterior superior dislocation of the humeral head as seen on the prior radiographs. Humeral head currently abuts the anteromedial aspect of the coracoid process. There are multiple small fracture fragments displaced anteriorly and inferiorly to the coracoid process with the largest measuring up to 1.1 cm. These are in the region of the proximal short head biceps tendon and likely indicate a fracture and associated avulsion injury. The largest fracture fragment is displaced inferiorly by approximately 2 cm. ? 2. Mild glenohumeral and acromioclavicular osteoarthritis. Moderate joint effusion. ? 3. The rotator cuff tendons are not well evaluated on CT examination, however, given the degree of displacement of the humeral head, there are complete versus near-complete tears of the entirety of the rotator cuff. ? 4. 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 ?CT/CT head/brain wo IV con IMPRESSION: No acute intracranial pathology. ?CT/CT cervical spine wo IV con IMPRESSION: 1.? Status post C5-6 anterior fusion without acute abnormality. 2.? Mild centrilobular emphysema in the lung apices. ? Independent Historian Clinical information obtained from an independent historian. History obtained from or confirmed by: EMS External Record Review External record reviewed: Outpatient record, Prior outpatient labs and Prior outpatient radiology Prescription Management I considered prescription management with: Pain Medication Chronic Conditions Patient?s care impacted by: Other (Parkinson's disease, recurrent falls ) Critical Care Time Critical Care Time Critical Care Time: No Discharge Plan Discharge Clinical Impression: Chin laceration, Parkinson's disease, Chronic dislocation of left shoulder Patient Disposition: [facility] Instructions: Shoulder Dislocation (ED), Skin Adhesive Care (ED) Additional Instructions: CT scans of your head and neck did not show any acute injuries. Skin glue was used to close a small laceration on your chin. This will come off on its own, usually within a week. Do not peel it off Your shoulder CT showed: 1. Anterior superior dislocation of the humeral head as seen on the prior radiographs. Humeral head currently abuts the anteromedial aspect of the coracoid process. There are multiple small fracture fragments displaced anteriorly and inferiorly to the coracoid process with the largest measuring up to 1.1 cm. These are in the region of the proximal short head biceps tendon and likely indicate a fracture and associated avulsion injury. The largest fracture fragment is displaced inferiorly by approximately 2 cm. ORTHOPEDICS recommending SLING FOR COMFORT and following up as an outpatient Recommend around the clock tylenol for pain If you develop new or worsening symptoms call 911 or come back to the ER for further evaluation. Prescriptions: No Action melatonin 3 mg Tablet 3 mg PO BEDTIME PRN (Reason: Sleep) lisinopril 10 mg Tablet 10 mg PO DAILY gabapentin 300 mg Capsule 300 mg PO BEDTIME gabapentin 100 mg Capsule 100 mg PO BID@0800,1700 carbidopa-levodopa 25-100 mg Tablet 2 tab PO TID@0800,1200,2100 ropinirole 0.25 mg tablet 1 tab PO BEDTIME oxycodone 5 mg tablet 5 mg PO Q6H PRN (Reason: pain) Qty: 30 0RF Rx Instructions: Partial Fill upon patient request. oxycodone 10 mg tablet,oral only,ext.rel.12 hr 10 mg PO BID Qty: 30 0RF Rx Instructions: Partial Fill upon patient request. metoprolol succinate 25 mg tablet extended release 24 hr 25 mg PO BEDTIME Qty: 30 0RF amlodipine 2.5 mg tablet 1 tab PO TID Referrals: [facility] [Provider Group] (1. Anterior superior dislocation of the humeral head as seen on the prior radiographs. Humeral head currently abuts the anteromedial aspect of the coracoid process. There are multiple small fracture fragments displaced anteriorly and inferiorly to the coracoid process with the largest measuring up to 1.1 cm. These are in the region of the proximal short head biceps tendon and likely indicate a fracture and associated avulsion injury. The largest fracture fragment is displaced inferiorly by approximately 2 cm.)
[2022-11-03 08:25] VITALS: BP 145/70; PULSE 63; RESP 16; TEMP 37.1; O2SAT 97
[2022-11-03 09:42] VITALS: BP 143/72; PULSE 66; RESP 18; O2SAT 97
[2022-11-03 11:35] VITALS: BP 146/68; PULSE 72; RESP 16; O2SAT 98
== END 2022-11-03 12:53 | disposition skilled nursing facility (03) ==
PROVIDERS: Emergency Provider Student in an Organized Health Care Education/Training Program; PCP Family Medicine
DX: S01.81XA Laceration without foreign body of other part of head, initial encounter (principal); S43.005A Unspecified dislocation of left shoulder joint, initial encounter; G20 Parkinson's disease; M54.2 Cervicalgia; R51.9 Headache, unspecified; M25.512 Pain in left shoulder; W05.0XXA Fall from non-moving wheelchair, initial encounter; Y93.9 Activity, unspecified; Y92.9 Unspecified place or not applicable; Y99.9 Unspecified external cause status; Z79.899 Other long term (current) drug therapy; Z87.891 Personal history of nicotine dependence
CPT/HCPCS: 12011; 70450; 72125; 73200; 99284

== ENCOUNTER 2022-11-07 19:08 | Emergency (ER) | payer MEDICARE, SELFPAY ==
--- NOTE | ~2022-11-07 | XR_ITS ---
EXAMINATION: XR SHOULDER, LEFT CLINICAL INFORMATION: Left-sided shoulder pain COMPARISON: Left shoulder 11/02/2022 TECHNIQUE: Three views of the left shoulder. FINDINGS: There is anterior dislocation of the humerus. No fracture. The acromioclavicular joint is normal. XR/XR shoulder LT min 2V IMPRESSION: Anterior shoulder dislocation.
[2022-11-07 19:32] VITALS: BP 103/69; BP 118/62; PULSE 62; RESP 18; TEMP 36.3; O2SAT 98; O2SAT 99; BMI 23.7
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
--- NOTE | 2022-11-07 19:40 | PC.NURSE ---
Provider into assessed pt, per ems no loc or fall, dislocation is chronic per provider, needs to see ortho, notified [facility] from facility, positive cms and pulse. Extremity warm to touch, pt able to move all digits. Plan is to discharge to facility
--- NOTE | 2022-11-07 19:58 | PC.NURSE ---
Report given to facility to [facility].
--- NOTE | 2022-11-07 20:23 | PC.NURSE ---
Report given to [facility], pt being transport to facility.
--- NOTE | 2022-11-07 20:28 | PC.NURSE ---
Sling was applied for comfort.
== END 2022-11-07 20:29 | disposition home or self-care (01) ==
PROVIDERS: Emergency Provider Student in an Organized Health Care Education/Training Program
DX: M24.412 Recurrent dislocation, left shoulder (principal); F12.90 Cannabis use, unspecified, uncomplicated; Z87.891 Personal history of nicotine dependence; Z79.899 Other long term (current) drug therapy
CPT/HCPCS: 73030; 99282; 99283

== ENCOUNTER → 2022-11-10 14:38 | Outpatient (BNVA) | payer MEDICARE, SELFPAY | PROVIDERS: Visit Provider Physician Assistant | DX: M24.412 Recurrent dislocation, left shoulder (principal); G20 Parkinson's disease; Z91.81 History of falling | CPT/HCPCS: 99202 ==

== ENCOUNTER 2022-12-26 11:33 | Emergency (ER) | payer MEDICARE, SELFPAY ==
--- NOTE | ~2022-12-26 | CT_ITS ---
EXAMINATION: CT HEAD WITHOUT CONTRAST CLINICAL INFORMATION: Fall. COMPARISON: Previous head CT most recent October 2022. TECHNIQUE: Contiguous axial imaging was performed from the skull base to vertex without intravenous administration of contrast. This CT examination was performed using dose optimization techniques as appropriate, variously including the following: *Automated exposure control *Adjustment of mA and/or kV according to patient size (this includes techniques or standardized protocols for targeted exams where dose is matched to indication/reason for exam; i.e. extremities or head) *Use of iterative reconstruction technique DLP: 792 mGy-cm FINDINGS: There is no evidence of an extra-axial collection. There is no evidence of intra-axial or axial hemorrhage. The ventricles and extra-axial CSF spaces are appropriate. Calvillo-white matter differentiation is normal. No mass, mass effect or infarct. No skull fracture. Prominent probably dominant distal left vertebral artery measuring 8 mm similar to previous exams. Polyp or cyst in the bilateral maxillary sinuses. Paranasal sinuses, mastoid air cells and middle ears are otherwise clear. CT/CT head/brain wo IV con IMPRESSION: No acute findings.
--- NOTE | ~2022-12-26 | XR_ITS ---
EXAMINATION: XR CHEST CLINICAL INFORMATION: Cough COMPARISON: Previous chest, left rib and shoulder x-rays October 2022 TECHNIQUE: Frontal view of the chest was obtained. FINDINGS: The cardiac and mediastinal contours are normal. The lungs are clear. No pleural effusion or pneumothorax. There may be abnormal alignment of the left shoulder. This appears similar to October 2022 exam. There are degenerative changes of the spine. XR/XR chest 1V IMPRESSION: No evidence for acute disease in the chest. Question abnormal alignment of the left shoulder similar to October 2022. This could be better evaluated with dedicated shoulder x-rays if clinically indicated.
--- NOTE | ~2022-12-26 | CT_ITS ---
EXAMINATION: CT ABDOMEN AND PELVIS WITHOUT CONTRAST CLINICAL INFORMATION: Abdominal pain COMPARISON: None available. TECHNIQUE: Multidetector volumetric imaging was performed from the superior aspect of the liver through the pubic symphysis. Sagittal and coronal reformatted images were obtained on the technologist's workstation. This CT examination was performed using dose optimization techniques as appropriate, variously including the following: *Automated exposure control *Adjustment of mA and/or kV according to patient size (this includes techniques or standardized protocols for targeted exams where dose is matched to indication/reason for exam; i.e. extremities or head) *Use of iterative reconstruction technique DLP: 792 mGy-cm FINDINGS: LUNG BASES: The lung bases are clear. The heart is slightly enlarged. There is coronary artery calcification. LIVER, GALLBLADDER, AND BILIARY TREE: The liver is normal in size, shape, and attenuation. No focal hepatic lesion or biliary ductal dilatation is present. The gallbladder is unremarkable with no evidence of radiopaque gallstones, gallbladder wall thickening, or obvious pericholecystic inflammatory changes. PANCREAS: Unremarkable. SPLEEN: Unremarkable. ADRENAL GLANDS: Unremarkable. KIDNEYS AND URETERS: The kidneys are normal in size, shape, and attenuation. No hydronephrosis, hydroureter, or calculi seen. No perinephric stranding. BLADDER: Unremarkable. GASTROINTESTINAL TRACT: There is a large amount of stool in the colon questionable for constipation. Mild diverticulosis of the colon. No evidence of diverticulitis. The small and large bowel are otherwise unremarkable. The appendix is unremarkable. ABDOMINAL WALL: No significant hernia is appreciated. LYMPH NODES: Normal. VASCULAR: Atherosclerotic disease. No aneurysm. PELVIC VISCERA: Unremarkable. OSSEOUS STRUCTURES: Postsurgical changes to the lumbar spine from with posterior fusion hardware from L2 to L5. Intervertebral body disc interspace at L4-L5. No fracture or dislocation. CT/CT abdomen pelvis wo IV con IMPRESSION: Diverticulosis. No evidence of diverticulitis. Probable constipation. Fleischner guidelines were followed.
[2022-12-26 11:51] VITALS: BP 142/74; BP 149/77; PULSE 65; PULSE 70; TEMP 37.1; O2SAT 98; O2SAT 99; BMI 20.5
--- NOTE | 2022-12-26 12:33 | ECG_ITS ---
Test Reason : medication Blood Pressure : / mmHG Vent. Rate : 063 BPM Atrial Rate : 063 BPM P-R Int : 196 ms QRS Dur : 098 ms QT Int : 422 ms P-R-T Axes : 000 -02 021 degrees QTc Int : 431 ms Sinus rhythm with frequent Premature ventricular complexes Left ventricular hypertrophy with repolarization abnormality ( Brett product ) Abnormal ECG When compared with ECG of 17-SEP-2022 10:35, Premature ventricular complexes are now Present Premature atrial complexes are no longer Present Referred By: Meena Crisostomo Electronically Signed By:Madi French
[2022-12-26 12:56] LABS: MANUAL DIFF FLAG NO
--- OUTSIDE RECORDS SUMMARY | 2022-12-26 12:59 | XMS_ITS | Continuity of Care Document ---
Author Name Unknown Organization [facility] Address [address] [facility], [address] Floor, [address] [place] [id number]- Care Team Providers Care Showcase Maker Name Role Phone Erika CHAPARRO, Lin Tidwell Primary Care Physician [place] [facility] [place] 08/25/22 - 12/09/22 [facility] [address], [address], [address] [place] [id number]- Attending Physician: Elton Delacruz MD Admitting Physician: Elton Delacruz MD Referring Physician: Lin James NP Allergies, Adverse Reactions, Alerts No Known Medication Allergies Medications amLODIPine 2.5 mg oral tablet 3 tablet = 7.5 mg, 0 Refills, Maintenance, 08/25/22 16:18:00 EST, Partial fill upon patient requestif the prescription is for a schedule II opioid drug. Start Date: 08/25/22 Status: Ordered carbidopa-levodopa 25 mg-100 mg oral tablet 1 tablet, By Mouth, 2 times a day, 0 Refills, Maintenance, 08/25/22 16:20:00 EST, Partial fill uponpatient request if the prescription is for a schedule II opioid drug. Start Date: 08/25/22 Status: Ordered gabapentin 100 mg oral capsule 100 mg, 1, capsule, By Mouth, 2 times a day, Refills 0, Maintenance, 08/25/22 16:21:00 EST, Partialfill upon patient request if the prescription is for a schedule II opioid drug. Start Date: 08/25/22 Status: Ordered lisinopril 10 mg oral tablet 10 mg, 1, tablet, By Mouth, Daily, # 30 tablet, Refills 0, Maintenance, 08/25/22 16:23:00 EST, Partial fill upon patient request if the prescription is for a schedule II opioid drug. Start Date: 08/25/22 Status: Ordered Melatonin 3 mg oral tablet 1 tablet = 3 mg, By Mouth, Daily at bedtime, PRN for insomnia, # 60 tablet, 0 Refills, Maintenance,08/25/22 16:22:00 EST, Tablet, Partial fill upon patient request if the prescription is for a schedule II opioid drug. Start Date: 08/25/22 Status: Ordered rOPINIRole 0.25 mg oral tablet 1 tablet = 0.25 mg, By Mouth, Daily at bedtime, # 30 tablet, 0 Refills, Maintenance, 08/25/22 16:19:00 EST, Tablet, Partial fill upon patient request if the prescription is for a schedule II opioid drug. Start Date: 08/25/22 Stop Date: 09/24/22 Status: Ordered Patient Care team information Care Team Personnel Name: Lin James NP Position: S Associate Professional Member Role: PCP Address: Address: [address] [place] [address] Pediatrics, [place] [address]- Care Team Related Persons Name: ALLI MARIN Address: [address] [place] [address]
--- OUTSIDE RECORDS SUMMARY | 2022-12-26 12:59 | XMS_ITS | Continuity of Care Document ---
Author Name Unknown Organization [facility] Address [address] [facility], [address] Floor, [address] [place] [id number]- Care Team Providers Care Bookbinder Apprentice Name Role Phone Erika CHAPARRO, Lin Tidwell Primary Care Physician [place] [facility] [place] 11/[place]/22 - 12/24/22 [facility] [address], [address], [address] [place] [id number]- Attending Physician: Elton Delacruz MD Admitting Physician: Elton Delacruz MD Allergies, Adverse Reactions, Alerts No Known [...] Care team information Care Team Personnel Name: Eriak CHAPARRO, Lin Tidwell Position: [facility] Associate Professional Member Role: PCP Address: Address: [address] [facility], [place] [address]- Care Team Related Persons Name: ALLI MARIN Address: [address] [place] [address]
[2022-12-26 13:00] LABS: Basophils Percent Auto 0.5 % (0-2); Eosinophils Percent Auto 0.7 % (0-4); Hematocrit 37.7 % (42.0-52.0); Hemoglobin 12.6 g/dl (14.0-18.0); Imm Gran Abs Auto 0.02 X10*3/uL (0.00-0.03); Imm Gran Pct Auto 0.3 % (0.0-0.4); Lymphocytes Percent Auto 17.8 % (20-40); Mean Corpuscular HGB Conc 33.4 g/dl (31.0-36.0); Mean Corpuscular Hemoglobin 31.8 pg (27.0-33.0); Mean Corpuscular Volume 95.2 fL (80.0-98.0); Monocytes Absolute Auto 0.6 X10*3/uL (0.1-1.2); Monocytes Percent Auto 10.3 % (2-11); Neutrophils Absolute Auto 4.1 x10*3/uL (2.0-8.3); Neutrophils Percent Auto 70.4 % (45-73); Platelet Count 338 X10*3/uL (160-400); Red Blood Count 3.96 X10*6/uL (4.60-5.80); Red Cell Distribution Width 12.6 % (11.0-16.0); White Blood Count 5.8 X10*3/uL (4.8-10.8)
--- NOTE | 2022-12-26 13:00 | PC.NURSE ---
pt c/o 05/22 chronic back pain. he reports that he fell out of his wheelchair yesterday and was not able to get up on his own. he lives with his girlfriend who is a laryngologist and she is his primary caregiver. pt reports that he falls all the time and stays on the floor until his girlfriend gets home to help him up. multiple bruises observed in different areas of pt's body.
[2022-12-26 13:14] LABS: Prothrombin Time 11.7 SEC (10.0-13.1)
[2022-12-26 13:16] LABS: Alanine Aminotransferase 9 U/L (0-40); Albumin Level 3.8 g/dL (3.5-5.0); Alkaline Phosphatase 70 U/L (39-117); Anion Gap 10 (12-20); Aspartate Amino Transferase 13 U/L (5-37); Bilirubin Total 0.5 mg/dL (0.0-1.0); Blood Urea Nitrogen 15 mg/dL (9-16); Calcium 9.2 mg/dL (8.4-10.2); Carbon Dioxide 29 mmol/L (22-29); Chloride 106 mmol/L (96-108); Creatinine Clr Calc Pharmacy 97.9; Estimated Glomerular Filt Rate > 60; Glucose Random 97 mg/dL (60-115); Potassium 4.3 mmol/L (3.3-5.1); Sodium 141 mmol/L (135-145); Total Protein 6.2 g/dL (6.5-8.0)
[2022-12-26 13:21] LABS: B Type Natriuretic Peptide 459 pg/mL (<100)
[2022-12-26] MEDS: 0.9 % Sodium Chloride 500 ML 999 ML IV (13:37)
[2022-12-26 14:00] VITALS: BP 152/88; PULSE 100; RESP 22; O2SAT 94
--- NOTE | 2022-12-26 14:18 | ED_ITS ---
HPI - General Adult General Chief complaint: Back Pain/Injury Stated complaint: BACK PAIN Time Seen by Provider: 12/26/22 11:45 Source: patient Mode of arrival: EMS History of Present Illness HPI narrative: 67-year-old male who is brought in by EMS and states that he fell out of his wheelchair yesterday but is unsure of how that happened. Patient states that he has been wheelchair-bound for approximately 1 year. He otherwise denies any fever, chills, nausea, vomiting, abdominal pain, shortness of breath, chest pain/palpitations. Additional history is that patient lives with his girlfriend but sometimes is stuck on the ground for a while Related Data Home Medications Medication Instructions Recorded Confirmed carbidopa 25 mg-levodopa 100 mg 2 tab PO TID@0800,1200,2100 12/23/21 11/12/22 tablet gabapentin 100 mg capsule 100 mg PO BID@0800,1700 12/23/21 11/12/22 gabapentin 300 mg capsule 300 mg PO BEDTIME 12/23/21 11/12/22 lisinopril 10 mg tablet 10 mg PO DAILY 12/23/21 11/12/22 melatonin 3 mg tablet 3 mg PO BEDTIME PRN Sleep 12/23/21 11/12/22 ropinirole 0.25 mg tablet 1 tab PO BEDTIME 04/23/22 11/12/22 amlodipine 2.5 mg tablet 1 tab PO TID 09/17/22 11/12/22 Previous Rx's Medication Instructions Recorded metoprolol succinate 25 mg 25 mg PO BEDTIME #30 tabs 08/18/22 tablet,extended release 24 hr oxycodone 10 mg tablet,crush 10 mg PO BID #30 tabs 10/30/22 resistant,extended release 12 hr oxycodone 5 mg tablet 5 mg PO Q6H PRN pain #30 tabs 10/30/22 Allergies Allergy/AdvReac Type Severity Reaction Status Date / Time No Known Allergies Allergy Verified 12/26/22 12:13 Review of Systems Review of Systems: Pertinent positives and negatives as stated in HPI [facility] Past Medical History Source: nursing notes reviewed Medical History Atrial fibrillation with rapid ventricular response Cardiomyopathy CHF (congestive heart failure) HTN (hypertension) Parkinson disease Surgical History H/O spinal fusion Family History Family History Mother CAD (coronary artery disease) Social History Social History Household Members: None Housing: House Do you presently have visiting nurse or other home services: Yes Unable to assess alcohol history related to: Unknown Alcohol intake: never Patient Tobacco Use Status: Former Tobacco user e-Cigarette/Vaping Use: Never Used Substance Use Type: Marijuana Advance Directives: Yes Advance Directives on File: Yes Advance Directives Date on File: 12/27/21 service: No Current occupational status: retired Physical Exam ED Vital Signs: Vital Signs - 24 hr 12/26/22 11:51 12/26/22 14:00 Temperature 98.7 F Pulse Rate 65 100 Respiratory Rate 22 H Blood Pressure 149/77 H 152/88 H Pulse Oximetry 99 94 Oxygen Delivery Method Room Air Room Air BMI result Body Mass Index 20.5 VITAL SIGNS: Reviewed. GENERAL: Elderly, fragile, in no acute distress. HEAD: Normocephalic/atraumatic EYES: PERRLA, EOMI EARS: Ext canals without abnormality NOSE: Nares patent bilateral OROPHARYNX: no oral lesions noted, posterior pharynx clear NECK: Supple, no adenopathy LUNGS: Normal breath sounds. No adventitious sounds or accessory muscle use. SpO2<99> CARDIOVASCULAR: Regular rate and rhythm without noted murmurs, no JVD or lower extremity edema. ABDOMEN: Soft, non-tender, non-distended with bowel sounds. BACK: On evaluation there is no midline vertebral tenderness until palpation over prior surgical scar area but no obvious overlying skin changes no concerning step-offs MUSCULOSKELETAL: No tenderness, deformities, or effusions noted on gross inspection. EXTREMITIES: No cyanosis, clubbing or edema. SKIN: Inspection of the skin reveals no rashes, ulcerations, jaundice, pallor, or petechiae. NEUROLOGIC: Alert and oriented x 3. Strength and sensation to light touch were grossly intact x 4. Medications Administered Discontinued Medications Generic Name Dose Route Start Last Admin Trade Name Freq PRN Reason Stop Dose Admin Sodium Chloride 1,000 mls @ 999 mls/hr 12/26/22 12:45 05/16/23 13:38 Ns IV 12/26/22 13:45 Not Given .Q1H1M STEPH Sodium Chloride 500 mls @ 999 mls/hr 12/26/22 12:45 12/26/22 14:23 Ns IV 12/26/22 13:15 Infused .Q31M STEPH Infusion Medical Decision Making Medical Decision Making MDM Narrative: 67-year-old male will evaluate for any traumatic injury to spine as well as rule out the possibility of intracranial bleed but lower clinical suspicion given there are no focal deficits. Otherwise will rule out infection, anemia. Review of all investigations my interpretation is that patient's lab work is chronically stable. Patient did receive 500 cc of fluids and will also receive 40 of Lasix p.o. Will involve physical therapy in case management this time for patient's concern regarding multiple falls and having to wait for significant other to return home. He is otherwise medically cleared for further evaluation. Differential Diagnosis Please see the discussion above Lab Data Please see the discussion above 12/26/22 12:47 12/26/22 12:47 Labs: Lab Results 12/26/22 12/26/22 12/26/22 Range/Units 11:12 12:47 12:47 WBC 5.8 (4.8-10.8) X10*3/uL RBC 3.96 L (4.60-5.80) X10*6/uL Hgb 12.6 L (14.0-18.0) g/dl Hct 37.7 L (42.0-52.0) % MCV 95.2 (80.0-98.0) fL MCH 31.8 (27.0-33.0) pg MCHC 33.4 (31.0-36.0) g/dl RDW 12.6 (11.0-16.0) % Plt Count 338 (160-400) X10*3/uL MPV 9.0 L (9.4-12.4) fL Immature Gran % (Auto) 0.3 (0.0-0.4) % Neut % (Auto) 70.4 (45-73) % Lymph % (Auto) 17.8 L (20-40) % Lowndes % (Auto) 10.3 (2-11) % Eos % (Auto) 0.7 (0-4) % Baso % (Auto) 0.5 (0-2) % Lymph # (Auto) 1.0 L (1.2-4.9) X10*3/uL [place]owndes # (Auto) 0.6 (0.1-1.2) X10*3/uL Eos # (Auto) 0.0 (0.0-0.4) X10*3/uL Baso # (Auto) 0.0 (0.0-0.2) X10*3/uL Abs Immat Gran (auto) 0.02 (0.00-0.03) X10*3/uL Absolute Neuts (auto) 4.1 (2.0-8.3) x10*3/uL Absolute Nucleated RBC 0.000 (0.0-0.012) X10*3/uL Nucleated RBC % (auto) 0.0 (0.0-0.2) /100WBC PT 11.7 (10.0-13.1) SEC INR 1.0 (0.9-1.1) Sodium (135-145) mmol/L Potassium (3.3-5.1) mmol/L Chloride (96-108) mmol/L Carbon Dioxide (22-29) mmol/L Anion Gap (12-20) BUN (9-16) mg/dL Creatinine (0.5-1.4) mg/dL Estim Creat Clear Calc Estimated GFR Random Glucose (60-115) mg/dL Calcium (8.4-10.2) mg/dL Total Bilirubin (0.0-1.0) mg/dL AST (5-37) U/L ALT (0-40) U/L Alkaline Phosphatase (39-117) U/L Total Creatine Kinase (38-174) U/L B-Natriuretic Peptide 459 H (<100) pg/mL Total Protein (6.5-8.0) g/dL Albumin (3.5-5.0) g/dL 12/26/22 Range/Units 12:47 WBC (4.8-10.8) X10*3/uL RBC (4.60-5.80) X10*6/uL Hgb (14.0-18.0) g/dl Hct (42.0-52.0) % MCV (80.0-98.0) fL MCH (27.0-33.0) pg MCHC (31.0-36.0) g/dl RDW (11.0-16.0) % Plt Count (160-400) X10*3/uL MPV (9.4-12.4) fL Immature Gran % (Auto) (0.0-0.4) % Neut % (Auto) (45-73) % Lymph % (Auto) (20-40) % Lowndes % (Auto) (2-11) % Eos % (Auto) (0-4) % Baso % (Auto) (0-2) % Lymph # (Auto) (1.2-4.9) X10*3/uL Lowndes # (Auto) (0.1-1.2) X10*3/uL Eos # (Auto) (0.0-0.4) X10*3/uL Baso # (Auto) (0.0-0.2) X10*3/uL Abs Immat Gran (auto) (0.00-0.03) X10*3/uL Absolute Neuts (auto) (2.0-8.3) x10*3/uL Absolute Nucleated RBC (0.0-0.012) X10*3/uL Nucleated RBC % (auto) (0.0-0.2) /100WBC PT (10.0-13.1) SEC INR (0.9-1.1) Sodium 141 (135-145) mmol/L Potassium 4.3 (3.3-5.1) mmol/L Chloride 106 (96-108) mmol/L Carbon Dioxide 29 (22-29) mmol/L Anion Gap 10 L (12-20) BUN 15 (9-16) mg/dL Creatinine 0.68 (0.5-1.4) mg/dL Estim Creat Clear Calc 97.9 Estimated GFR > 60 Random Glucose 97 (60-115) mg/dL Calcium 9.2 D (8.4-10.2) mg/dL Total Bilirubin 0.5 (0.0-1.0) mg/dL AST 13 (5-37) U/L ALT 9 (0-40) U/L Alkaline Phosphatase 70 (39-117) U/L Total Creatine Kinase 99 (38-174) U/L B-Natriuretic Peptide (<100) pg/mL Total Protein 6.2 L (6.5-8.0) g/dL Albumin 3.8 (3.5-5.0) g/dL Independent Interpretation I performed an independent interpretation of an: EKG Interpretation: Sinus rhythm with PVCs, HR-63, no STEMI, FL/QRS/QTC is within normal limits. Chronic Conditions Patient?s care impacted by: Hypertension Discharge Plan Discharge Clinical Impression: Multiple falls, CHF (congestive heart failure) Patient Disposition: Still a Patient Prescriptions: No Action melatonin 3 mg Tablet 3 mg PO BEDTIME PRN (Reason: Sleep) lisinopril 10 mg Tablet 10 mg PO DAILY gabapentin 300 mg Capsule 300 mg PO BEDTIME gabapentin 100 mg Capsule 100 mg PO BID@0800,1700 carbidopa-levodopa 25-100 mg Tablet 2 tab PO TID@0800,1200,2100 ropinirole 0.25 mg tablet 1 tab PO BEDTIME oxycodone 5 mg tablet 5 mg PO Q6H PRN (Reason: pain) Qty: 30 0RF Rx Instructions: Partial Fill upon patient request. oxycodone 10 mg tablet,oral only,ext.rel.12 hr 10 mg PO BID Qty: 30 0RF Rx Instructions: Partial Fill upon patient request. metoprolol succinate 25 mg tablet extended release 24 hr 25 mg PO BEDTIME Qty: 30 0RF amlodipine 2.5 mg tablet 1 tab PO TID
[2022-12-26 14:53] VITALS: BP 152/88; PULSE 100; O2SAT 94
--- NOTE | 2022-12-26 15:24 | PHA.MEDREC ---
Pharmacy Consult ? Medication Reconciliation Pharmacy has completed the medication reconciliation.
[2022-12-26] MEDS: Acetaminophen 325 MG TABLET 975 MG PO (15:34)
[2022-12-26] MEDS: Lidocaine 4 % Patch ADH..PATCH 1 PATCH TRANSDERMA (15:34)
[2022-12-26] MEDS: Furosemide 40 MG TABLET PO (15:35)
[2022-12-26 16:06] VITALS: BP 166/83; PULSE 67; RESP 16; O2SAT 96
[2022-12-26 16:12] VITALS: BP 166/83; PULSE 84; RESP 18; TEMP 36.9; O2SAT 98
[2022-12-26 17:00] LABS: Appearance Urine Clear; Color Urine Yellow; Glucose Urine UA Negative (Negative); Leukocyte Esterase Urine Negative (Negative); Nitrite Urine Negative (Negative); Specific Gravity - Urine 1.015 (1.005-1.025); Urine Blood Negative (Negative); Urine Ketones Negative (Negative); Urine Protein Negative (Neg-Trace)
--- NOTE | 2022-12-26 17:27 | MHC.CM.ED ---
Addendum entered by Sue Tello 12/26/22 18:18: Elder protective services filed-intake number [id number] Original Note: CM met with patient at request of Dr. Crisostomo. Pt lives with girlfriend. 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 Uses can and has been wheelchair bound for about a year. Pt has Parkinsons. Pt is active with [facility]. Has PT/OT/SN. [employer] x3. HCP on file. Meena [place] S.O. [phone]. PT is recommending home PT. Patient is agreeable. Pt is aware that CM will call Meena to assess care at home. Per Meena, pt does fall frequently. Meena states he has very poor balance. Has [facility] services in the home. Pt private pays for [employer] from [employer] [facility] 4-8pm and Sat& Sun 12-8pm. Meena care for him when S[employer]ER are off. Meena admits that patient does spend some time alone. Meena admits that she can pay for more help if needed. Meena has no plans for higher level of care that patient may need. Pt has funds, owns his home and has a pension. Pt is not a . Meena does not want to consider a shelter or assisted living at this time. Says she takes it day by day. Meena is agreeable to patient coming home with existing services. Meena had cancelled impregnator helper at home for today, as patient was in the hospital. Meena is working until 9pm. Above discussed with Dr. Crisostomo. Will hold patient until BLS transport at 2030. Pt to have dinner. Patient aware and agreeable to plan of care. CM will file with Elder Protective Services, to assess patient living situation and possible need for 24/7 care.
[2022-12-26 18:48] VITALS: BP 166/65; PULSE 91; RESP 22; TEMP 36.6; O2SAT 97
== END 2022-12-26 20:54 | disposition home or self-care (01) ==
PROVIDERS: Emergency Provider Student in an Organized Health Care Education/Training Program; PCP Internal Medicine
DX: R29.6 Repeated falls (principal); I11.0 Hypertensive heart disease with heart failure; I50.9 Heart failure, unspecified; I48.91 Unspecified atrial fibrillation; G20 Parkinson's disease; Z99.3 Dependence on wheelchair; Z79.899 Other long term (current) drug therapy
CPT/HCPCS: 36415; 70450; 71045; 74176; 80053; 81003; 82550; 83880; 85025; 85610; 93005; 96360; 97161; 99285

== ENCOUNTER 2023-03-15 18:28 | Emergency (ER) | payer MEDICARE, SELFPAY ==
--- NOTE | ~2023-03-15 | XR_ITS ---
EXAMINATION: XR CHEST CLINICAL INFORMATION: Fall COMPARISON: 12/26/2022 TECHNIQUE: 2 views of the chest were obtained. FINDINGS: The lungs are well expanded. There is no focal consolidation, edema, or effusion. No pneumothorax. The cardiomediastinal silhouette is within normal limits. No acute osseous abnormality. XR/XR chest 2V IMPRESSION: Clear lungs. No displaced fractures are seen.
--- NOTE | ~2023-03-15 | CT_ITS ---
EXAMINATION: CT HEAD WITHOUT CONTRAST CT CERVICAL SPINE WITHOUT CONTRAST CLINICAL INFORMATION: Fall. COMPARISON: CT head 12/26/2022. CT head and cervical spine 01/03/2023. TECHNIQUE: Contiguous axial imaging was performed from the skull base to vertex without intravenous administration of contrast. Contiguous axial imaging was performed from the upper chest through the skull base without intravenous administration of contrast. Coronal and sagittal reformats were obtained at the acquisition workstation. This CT examination was performed using dose optimization techniques as appropriate, variously including the following: *Automated exposure control *Adjustment of mA and/or kV according to patient size (this includes techniques or standardized protocols for targeted exams where dose is matched to indication/reason for exam; i.e. extremities or head) *Use of iterative reconstruction technique DLP: 660 and 379 mGy-cm FINDINGS: Head: There is no evidence of acute intracranial hemorrhage or edematous territorial infarction. A few foci of hypoattenuation in the periventricular and deep white matter are consistent with mild microangiopathy. Calvillo-white matter differentiation is preserved. Proportional prominence of the ventricles and sulcal spaces. No evidence for obstructive hydrocephalus. No abnormal mass effect or midline shift. No extra-axial fluid collections. Chronic fat herniation along the right inferior orbital rim axial images 72 series 11. No acute osseous or soft tissue abnormalities. Mucus retention cyst in the left maxillary sinus. Partial opacification of some ethmoid air cells on the right. The mastoids and middle ear cavities are clear. Cervical Spine: Anterior cervical fusion hardware at C5-C6. No evidence of hardware failure. The atlantooccipital and atlantoaxial articulations remain well aligned. Straightening of the normal cervical lordosis. Otherwise, there is anatomic alignment of the vertebral bodies and posterior elements. No evidence of acute fracture or subluxation. Moderate multilevel cervical spondylosis with various degrees of neural foraminal encroachment and central canal stenosis. There is no prevertebral soft tissue swelling. The thyroid gland and remaining cervical soft tissues are normal in appearance. Mild emphysematous changes. CT/CT cervical spine wo IV con IMPRESSION: 1. No acute intracranial pathology. 2. No acute cervical spinal fractures or malalignment.
[2023-03-15 18:56] VITALS: BP 148/86; BP 154/72; PULSE 66; PULSE 72; RESP 18; TEMP 37; O2SAT 97; O2SAT 98; BMI 21.1
--- NOTE | 2023-03-15 19:04 | ECG_ITS ---
Test Reason : FALL Blood Pressure : / mmHG Vent. Rate : 066 BPM Atrial Rate : 066 BPM P-R Int : 208 ms QRS Dur : 102 ms QT Int : 418 ms P-R-T Axes : -08 016 078 degrees QTc Int : 438 ms Sinus rhythm with occasional Premature ventricular complexes Nonspecific ST abnormality Abnormal ECG When compared with ECG of 26-DEC-2022 13:39, No significant change was found Referred By: Brittney Bass Electronically Signed By:AMANDA MAST
--- NOTE | 2023-03-15 19:13 | PC.NURSE ---
Assumed caere of pt. Pt taken to radiology for Xray. PLan or assessment and testing on return.
--- OUTSIDE RECORDS SUMMARY | 2023-03-15 19:18 | XMS_ITS | Continuity of Care Document ---
Author Name Unknown Organization [facility] Address [address] [facility], [address] Floor, [address] [place] [address]- Care Team Providers Care Hop Sorter Name Role Phone Erika CHAPARRO, Lin Tidwell Primary Care Physician Encounter [facility] [place] Date(s): 01/31/23 - 03/02/23 [facility] [address], [address] Floor, [address] [place] [address]- Allergies, Adverse Reactions, Alerts No Known Medication Allergies Medications amLODIPine 2.5 mg oral tablet 3 tablet = 7.5 mg, 0 Refills, Maintenance, 08/25/22 16:18:00 EST, Partial fill upon patient requestif the prescription is for a schedule II opioid drug. Start Date: 08/25/22 Status: Ordered carbidopa-levodopa 25 mg-100 mg oral tablet 2 tablet, By Mouth, 3 times a day, # 540 tablet, 3 Refills, Maintenance, 01/29/23 13:41:00 EDT, Tablet, [id number], Partial fill upon patient request if the prescription is for a schedule II opioid drug., 2 tablet By Mouth 3 times a day Start Date: 01/29/23 Status: Ordered escitalopram 5 mg oral tablet 1 tablet = 5 mg, By Mouth, Daily, # 30 tablet, 3 Refills, Maintenance, 12/29/22 12:20:00 EDT, Tablet, [id number], Partial fill upon patient request if the prescription is for a schedule II opioid drug. Start Date: 12/29/22 Status: Ordered gabapentin 100 mg oral capsule 100 mg, 1, capsule, By Mouth, 2 times a day, Refills 0, Maintenance, 08/25/22 16:21:00 EST, Partialfill upon patient request if the prescription is for a schedule II opioid drug. Start Date: 08/25/22 Status: Ordered Left shoulder brace Left shoulder brace, See Instructions, # 1 each, Refills 0, Tot. Refills 0, Maintenance, Left shoulder insability, anterior, superior dislocation, 01/01/23 15:00:00 EDT, Supply Start Date: 01/01/23 Status: Ordered lisinopril 10 mg oral tablet [...] opioid drug. Start Date: 08/25/22 Status: Ordered QUEtiapine 25 mg oral tablet 25 mg, 1, tablet, By Mouth, Daily at bedtime, # 30 tablet, Refills 3, Tot. Refills 3, Maintenance, 12/29/22 12:19:00 EDT, Route to Pharmacy Electronically, [facility]pharmacy #[id number], Partial fill upon patient request if the prescription is for a schedule II... Start Date: 12/29/22 Status: Ordered rOPINIRole 0.25 mg oral tablet [...] Professional Member Role: PCP Address: Address: [address] [facility], [place] [address]- Care Team Related Persons Name: ALLI MARIN Address: [address] [place] [address]
--- OUTSIDE RECORDS SUMMARY | 2023-03-15 19:18 | XMS_ITS | Continuity of Care Document ---
Author Name Unknown Organization [facility] Address [address] [place] [address]- Care Team Providers Care Audiology Director Name Role Phone Lin James NP Primary Care Physician Encounter [facility] [place] Date(s): 01/01/23 - 01/08/23 [facility] [address] [place] [address]- Attending Physician: Art Fontanez MD Referring Physician: Lin James NP Allergies, [...] opioid drug. Start Date: 08/25/22 Status: Ordered escitalopram 5 mg oral tablet 1 tablet = 5 mg, By Mouth, Daily, # 30 tablet, 3 Refills, Maintenance, 12/29/22 12:20:00 EDT, Tablet, [facility]/pharmacy #[id number], Partial fill upon patient request if [...] to Pharmacy Electronically, [facility]/pharmacy #[id number], Partial fill upon patient request if the [...] Professional Member Role: PCP Address: Address: [address] [facility], [place] [address]- Care Team Related Persons Name: ALLI MARIN Address: [address] [place] [address]
--- OUTSIDE RECORDS SUMMARY | 2023-03-15 19:18 | XMS_ITS | Continuity of Care Document ---
Author Name Unknown Organization [facility] Address [address] [place] [address]- Care Team Providers Care Environmental Health Manager Name Role Phone Erika CHAPARRO, Lin Tidwell Primary Care Physician [place] [facility] [place] - 01/31/23 [facility] [address] [place] [address]- Attending Physician: Kenneth Monaco Admitting Physician: Kenneth [...] 12/29/22 12:19:00 EDT, Route to Pharmacy Electronically, [facility]/pharmacy #[id number], Partial fill upon patient request if the [...] Associate Professional Member Role: PCP Address: Address: [address] [place] [address] Pediatrics, [place], [place] [address] Care Team Related Persons Name: ALLI MARIN Address: [address] [place] [address]
--- OUTSIDE RECORDS SUMMARY | 2023-03-15 19:18 | XMS_ITS | Continuity of Care Document ---
Author Name Unknown Organization [facility] Address [address] [facility], 3r d Floor, [address] [place] [address]- Care Team Providers Care Washer Assembler Name Role Phone Erika CHAPARRO, Lin Tidwell Primary Care Physician Encounter [facility] [place] Date(s): 09/29/22 - 01/27/23 [facility] [address], [address], [address] [place] [address]- Attending Physician: Elton Delacruz MD Admitting Physician: [...] 3 Refills, Maintenance, 12/29/22 12:20:00 EDT, Tablet, [facility]/pharmacy #[id number], Partial fill upon patient request if [...] 12/29/22 12:19:00 EDT, Route to Pharmacy Electronically, [facility]/pharmacy #[id number], Partial fill upon patient request if the [...] Professional Member Role: PCP Address: Address: [address] [facility], [place] [address]- Care Team Related Persons Name: ALLI MARIN Address: [address] [place] [address]
--- OUTSIDE RECORDS SUMMARY | 2023-03-15 19:18 | XMS_ITS | Continuity of Care Document ---
Author Name Unknown Organization [facility] Address [address] [place] [address]- Care Team Providers Care Plumbing Assembler Installer Name Role Phone Lin James NP Primary Care Physician [place] [facility] [place]23 - 02/02/[address] [address]- Allergies, Adverse Reactions, Alerts No Known Medication [...] 12/29/22 12:19:00 EDT, Route to Pharmacy Electronically, [facility]/pharmacy #[id number], Partial fill upon patient request if the [...] Care team information Care Team Personnel Name: Erika CHAPARRO, Lin Tidwell Position: S Associate Professional Member Role: PCP Address: Address: [address] [facility], [place] [address]- Care Team Related Persons Name: TANIA ALLI Address: [address] [place] [address]
--- OUTSIDE RECORDS SUMMARY | 2023-03-15 19:18 | XMS_ITS | Continuity of Care Document ---
Author Name Unknown Organization [facility] Address [address] [facility], 3r d Floor, [address] [place] [address]- Care Team Providers Care Sawmill Production Worker Name Role Phone Erika CHAPARRO, Lin Tidwell Primary Care Physician [place] [facility] [place](s): 01/29/23 - 02/28/23 [facility] [address], [address], [address] [place] [address]- Allergies, Adverse Reactions, Alerts No Known Medication [...] 12/29/22 12:19:00 EDT, Route to Pharmacy Electronically, [facility]/pharmacy #[id number], Partial fill upon patient request if the [...] Professional Member Role: PCP Address: Address: [address] [facility], [place] [address]- Care Team Related Persons Name: ALLI MARIN Address: [address] [place] [address]
--- OUTSIDE RECORDS SUMMARY | 2023-03-15 19:18 | XMS_ITS | Continuity of Care Document ---
Author Name Unknown Organization [facility] Address [address] [place] [id number]- Care Team Providers Care Drapery Hanger Name Role Phone Erika CHAPARRO, Lin Tidwell Primary Care Physician [place] [facility] [place](s[place] 01/05/23 - 02/04/[address] [id number]- Attending Physician: Kenneth Monaco Admitting Physician: Kenneth Monaco Referring Physician: AdmtrKenneth Allergies, Adverse Reactions, Alerts No Known Medication [...] 12/29/22 12:19:00 EDT, Route to Pharmacy Electronically, [facility]/pharmacy #[id number], Partial fill upon patient request if the [...] Professional Member Role: PCP Address: Address: [address] [facility], [place] [address]- Care Team Related Persons Name: ALLI MARIN Address: [address] [place] [address]
[2023-03-15 19:36] VITALS: BP 165/66; PULSE 78; RESP 18
[2023-03-15 19:41] LABS: MANUAL DIFF FLAG NO
[2023-03-15 19:43] LABS: Basophils Percent Auto 0.7 % (0-2); Eosinophils Absolute Auto 0.1 X10*3/uL (0.0-0.4); Imm Gran Abs Auto 0.02 X10*3/uL (0.00-0.03); Imm Gran Pct Auto 0.3 % (0.0-0.4); Lymphocytes Absolute Auto 1.3 X10*3/uL (1.2-4.9); Lymphocytes Percent Auto 21.1 % (20-40); Mean Corpuscular HGB Conc 32.5 g/dl (31.0-36.0); Mean Corpuscular Hemoglobin 30.7 pg (27.0-33.0); Mean Corpuscular Volume 94.6 fL (80.0-98.0); Mean Platelet Volume 9.2 fL (9.4-12.4); Monocytes Absolute Auto 0.7 X10*3/uL (0.1-1.2); Monocytes Percent Auto 12.4 % (2-11); Neutrophils Absolute Auto 3.8 x10*3/uL (2.0-8.3); Neutrophils Percent Auto 64.5 % (45-73); Platelet Count 308 X10*3/uL (160-400); Red Blood Count 4.23 X10*6/uL (4.60-5.80); Red Cell Distribution Width 12.2 % (11.0-16.0)
[2023-03-15 20:02] LABS: Appearance Urine Clear; Color Urine Yellow; Glucose Urine UA Negative (Negative); Leukocyte Esterase Urine Negative (Negative); Nitrite Urine Negative (Negative); PH 6.5 (5.0-9.0); Specific Gravity - Urine 1.025 (1.005-1.025); Urine Blood Negative (Negative); Urine Ketones Negative (Negative); Urine Protein Trace mg/dL (Neg-Trace)
[2023-03-15 20:10] LABS: B Type Natriuretic Peptide 682 pg/mL (<100)
[2023-03-15 20:11] LABS: Troponin-I High Sensitivity 19.3 ng/L (<3.5-35.0)
[2023-03-15 20:13] LABS: Alanine Aminotransferase 18 U/L (0-40); Albumin Level 3.9 g/dL (3.5-5.0); Alkaline Phosphatase 91 U/L (39-117); Anion Gap 13 (12-20); Aspartate Amino Transferase 19 U/L (5-37); Blood Urea Nitrogen 20 mg/dL (9-16); Calcium 9.3 mg/dL (8.4-10.2); Carbon Dioxide 26 mmol/L (22-29); Chloride 110 mmol/L (96-108); Creatinine Clr Calc Pharmacy 90.3; Estimated Glomerular Filt Rate > 60; Glucose Random 99 mg/dL (60-115); Sodium 145 mmol/L (135-145); Total Protein 6.9 g/dL (6.5-8.0)
--- NOTE | 2023-03-15 20:17 | ED.FALL ---
HPI - Fall General Chief Complaint: Fall Stated Complaint: FALL FROM WHEELCHAIR -LOC -HEAD STRIKE Time Seen by Provider: 03/15/23 18:43 Source: patient and EMS Mode of arrival: EMS Limitations: no limitations History of Present Illness HPI Narrative: Patient is a 68-year-old male presents emergency department via EMS. Per EMS report patient was brought to emergency department after a slide out of his wheelchair with visiting nurse present in the home. He was placed in a hard C-spine collar. He denied any physical complaints. When I asked patient why he is here he reports that he had a fall today. When asked to elaborate he states that he was getting out of the bed, it is unclear whether he was using a cane or a walker but he reports that he uses both. He states he is unsure why he fell or how he fell. Reports that he lives at home with his girlfriend Emerita, and the heart girl is the one who called EMS. He is unable to elaborate on with this individual is or what reason she would be in the home/with services she provides. He is oriented to person place and time, but disoriented to event. He denies any head strike or loss of consciousness, who has no physical complaints when I am asking. Related Data Home Medications Medication Instructions Recorded Confirmed carbidopa 25 mg-levodopa 100 mg 2 tab PO TID@0800,1200,2100 12/23/21 12/26/22 tablet gabapentin 100 mg capsule 100 mg PO DAILY 12/23/21 12/26/22 gabapentin 300 mg capsule 300 mg PO BEDTIME 12/23/21 12/26/22 lisinopril 10 mg tablet 10 mg PO DAILY 12/23/21 12/26/22 melatonin 3 mg tablet 3 mg PO BEDTIME PRN Sleep 12/23/21 12/26/22 ropinirole 0.25 mg tablet 1 tab PO BEDTIME 04/23/22 12/26/22 amlodipine 2.5 mg tablet 1 tab PO TID 09/17/22 12/26/22 Allergies Allergy/AdvReac Type Severity Reaction Status Date / Time No Known Allergies Allergy Verified 03/15/23 18:56 Review of Systems Review of Systems: Constitutional: No fever. No chills. No weakness. No fatigue. Skin: No rash. No itching. Cardiovascular: No chest pain. No chest pressure. No palpitations. No pedal edema. Respiratory: No shortness of breath. No cough. No sputum production. Gastrointestinal: No nausea. No vomiting. No diarrhea. No abdominal pain. No blood in stool. Genitourinary: No burning micturition. No urinary frequency. No incontinence. Neurologic: No headache. No dizziness. No pre-syncope/ syncope. No unilateral weakness. No numbness. No tingling. No change in bowel or bladder control. Musculoskeletal: No muscle pain. No back pain. No joint pain. No stiffness. Hematologic: No bleeding. No bruising. Yes all other systems are reviewed and are negative [facility] Past Medical History Attestation statement: The following information was validated with the patient. Source: old records reviewed Medical History Atrial fibrillation with rapid ventricular response Cardiomyopathy CHF (congestive heart failure) HTN (hypertension) Parkinson disease Surgical History H/O spinal fusion Family History Family History Mother CAD (coronary artery disease) Social History Social History Household Members: None Housing: House Do you presently have visiting nurse or other home services: Yes Unable to assess alcohol history related to: Unknown Alcohol intake: former Patient Tobacco Use Status: Former Tobacco user Smoked in Last 30 Days: No e-Cigarette/Vaping Use: Never Used Use of substances other than those prescribed or required for medical reasons: No Substance Use Type: Marijuana Advance Directives: Yes Advance Directives on File: Yes Advance Directives Date on File: 12/27/21 service: No Current occupational status: retired Physical Exam Vital Signs: Vital Signs: Last Vital Signs Temp 98.1 F 03/16/23 00:24 Pulse 66 03/16/23 00:24 Resp 16 03/16/23 00:24 BP 157/71 H 03/16/23 00:24 Pulse Ox 97 03/16/23 00:24 O2 Del Method Room Air 03/16/23 00:24 BMI result Body Mass Index 21.1 Appearance: Alert.?Oriented to person, place and time. No acute distress.?Normal affect. Head: Normocephalic Eyes: Pupils equal, round and reactive to light. EOMI. Conjunctiva and sclera normal? No Davalos sign noted. No raccoon eyes noted ENT: No septal hematoma, nares patent bilaterally. External auditory canal normal tympanic membrane pearly mahajan and intact bilaterally. Dentition normal, no fractured teeth. No lesions or lacerations of oropharynx. Uvula midline. Moist mucous membranes. Neck: Normal inspection.? Neck supple.??No palpable tenderness, step-off, deformities. CVS: Heart sounds normal. Normal heart rate and rhythm.? Pulses normal.?? Respiratory: No respiratory distress.? Lung sounds clear to auscultation bilaterally?? Abdomen: Soft and non-tender. Normoactive bowel sounds. ?? Skin: Skin warm and dry.? Normal skin color.? ? Extremities: No lower extremity edema.? Neuro: Moves all extremities spontaneously. Sensation intact bilaterally. CN II-XII intact. No focal neuro deficits. Course Reevaluation(s) Reevaluation #1: CT of the head and cervical spine without acute intracranial pathology or traumatic fracture/malalignment/subluxation. Hard C-spine collar removed. Time: 20:28 Reevaluation #2: Patient placed in physician observation for care team evaluation/Physical therapy evaluation for persistent falls. Patient verbalized understanding of this. Agreeable with plan. Time: 22:29 Medical Decision Making Medical Decision Making [facility] Narrative: Patient is a 68-year-old male with past medical history of atrial fibrillation with RVR, CHF, hypertension, Parkinson's, cardiomyopathy. His ambulatory status is unclear, he reports to me using a cane and walker, however prior emergency department visit in December 2022 he had reported being wheelchair-bound for 1 year. At that time he had a physical therapy/case management evaluation, his significant other felt that he was safe for discharge home as he already had in-home services. At the time my examination he has no focal neurological deficits, however will obtain CT of the cervical spine to evaluate for traumatic injury in addition to CT for evaluation of possible intracranial bleed. Will obtain basic labs as well to identify any additional processes resulting in increased falls. Differential Diagnosis Differential Diagnoses: The differential diagnosis associated with the presentation includes (As noted above) Lab Data [facility] Lab Attestation statement: I reviewed the patient's lab results. CBC reveals no leukocytosis, baseline normocytic anemia which does not need any transfusion criteria. CMP is overall unremarkable, mildly elevated BUN which may be in part due to dehydration, BNP consistent with chronic CHF, clinically does not appear to be volume overloaded no hypoxia or tachycardia. Troponin 19.3 which is consistent with prior levels, lower suspicion at this time for ACS as an etiology of the fall. Urinalysis is without evidence of infection. 03/15/23 19:36 03/15/23 19:36 Labs: Lab Results 03/15/23 03/15/23 03/15/23 Range/Units 19:36 19:36 19:36 WBC 6.0 (4.8-10.8) X10*3/uL RBC 4.23 L (4.60-5.80) X10*6/uL Hgb 13.0 L (14.0-18.0) g/dl Hct 40.0 L (42.0-52.0) % MCV 94.6 (80.0-98.0) fL MCH 30.7 (27.0-33.0) pg MCHC 32.5 (31.0-36.0) g/dl RDW 12.2 (11.0-16.0) % Plt Count 308 (160-400) X10*3/uL MPV 9.2 L (9.4-12.4) fL Immature Gran % (Auto) 0.3 (0.0-0.4) % Neut % (Auto) 64.5 (45-73) % Lymph % (Auto) 21.1 (20-40) % [place] % (Auto) 12.4 H (2-11) % Eos % (Auto) 1.0 (0-4) % Baso % (Auto) 0.7 (0-2) % Lymph # (Auto) 1.3 (1.2-4.9) X10*3/uL [place] # (Auto) 0.7 (0.1-1.2) X10*3/uL Eos # (Auto) 0.1 (0.0-0.4) X10*3/uL Baso # (Auto) 0.0 (0.0-0.2) X10*3/uL Abs Immat Gran (auto) 0.02 (0.00-0.03) X10*3/uL Absolute Neuts (auto) 3.8 (2.0-8.3) x10*3/uL Absolute Nucleated RBC 0.000 (0.0-0.012) X10*3/uL Nucleated RBC % (auto) 0.0 (0.0-0.2) /100WBC PT (11.1-13.3) SEC INR (0.9-1.1) Sodium 145 (135-145) mmol/L Potassium 4.0 (3.3-5.1) mmol/L Chloride 110 H (96-108) mmol/L Carbon Dioxide 26 (22-29) mmol/L Anion Gap 13 (12-20) BUN 20 H (9-16) mg/dL Creatinine 0.75 (0.5-1.4) mg/dL Estim Creat Clear Calc 90.3 Estimated GFR > 60 Random Glucose 99 (60-115) mg/dL Calcium 9.3 (8.4-10.2) mg/dL Total Bilirubin 0.4 (0.0-1.0) mg/dL AST 19 (5-37) U/L ALT 18 (0-40) U/L Alkaline Phosphatase 91 (39-117) U/L Troponin I High Sens 19.3 (<3.5-35.0) ng/L B-Natriuretic Peptide (<100) pg/mL Total Protein 6.9 (6.5-8.0) g/dL Albumin 3.9 (3.5-5.0) g/dL Urine Color Urine Appearance Urine pH (5.0-9.0) Ur Specific [place] (1.005-1.025) Urine Protein (Neg-Trace) mg/dL Urine Glucose (UA) (Negative) mg/dL Urine Ketones (Negative) mg/dL Urine Blood (Negative) Urine Nitrite (Negative) Ur Leukocyte Esterase (Negative) 03/15/23 03/15/23 03/15/23 Range/Units 19:36 19:36 19:50 WBC (4.8-10.8) X10*3/uL RBC (4.60-5.80) X10*6/uL Hgb (14.0-18.0) g/dl Hct (42.0-52.0) % MCV (80.0-98.0) fL MCH (27.0-33.0) pg MCHC (31.0-36.0) g/dl RDW (11.0-16.0) % Plt Count (160-400) X10*3/uL MPV (9.4-12.4) fL Immature Gran % (Auto) (0.0-0.4) % Neut % (Auto) (45-73) % Lymph % (Auto) (20-40) % [place] % (Auto) (2-11) % Eos % (Auto) (0-4) % Baso % (Auto) (0-2) % Lymph # (Auto) (1.2-4.9) X10*3/uL [place] # (Auto) (0.1-1.2) X10*3/uL Eos # (Auto) (0.0-0.4) X10*3/uL Baso # (Auto) (0.0-0.2) X10*3/uL Abs Immat Gran (auto) (0.00-0.03) X10*3/uL Absolute Neuts (auto) (2.0-8.3) x10*3/uL Absolute Nucleated RBC (0.0-0.012) X10*3/uL Nucleated RBC % (auto) (0.0-0.2) /100WBC PT 13.0 (11.1-13.3) SEC INR 1.1 (0.9-1.1) Sodium (135-145) mmol/L Potassium (3.3-5.1) mmol/L Chloride (96-108) mmol/L Carbon Dioxide (22-29) mmol/L Anion Gap (12-20) BUN (9-16) mg/dL Creatinine (0.5-1.4) mg/dL Estim Creat Clear Calc Estimated GFR Random Glucose (60-115) mg/dL Calcium (8.4-10.2) mg/dL Total Bilirubin (0.0-1.0) mg/dL AST (5-37) U/L ALT (0-40) U/L Alkaline Phosphatase (39-117) U/L Troponin I High Sens (<3.5-35.0) ng/L B-Natriuretic Peptide 682 H (<100) pg/mL Total Protein (6.5-8.0) g/dL Albumin (3.5-5.0) g/dL Urine Color Yellow Urine Appearance Clear Urine pH 6.5 (5.0-9.0) Ur Specific [place] 1.025 (1.005-1.025) Urine Protein Trace (Neg-Trace) mg/dL Urine Glucose (UA) Negative (Negative) mg/dL Urine Ketones Negative (Negative) mg/dL Urine Blood Negative (Negative) Urine Nitrite Negative (Negative) Ur Leukocyte Esterase Negative (Negative) Independent Interpretation I performed an independent interpretation of an: EKG and Plain X-Ray (I personally interpreted chest x-ray imaging and agree with the radiologist impression.) Interpretation: Rate: 66 Rhythm:? Sinus rhythm with PVC [place]:? Normal Normal P waves.? Normal MEDINA.?? Normal QRS complex.?? ST T wave :??No ST elevation, no ST depression qTC: 438 prior studies:? December 2022 The study has been interpreted contemporaneously by me. Radiology Impression Discussion of test interpretation with radiology: I have reviewed the radiologist's reading. Radiologist Impression: CT/CT head/brain wo IV con IMPRESSION: 1.? No acute intracranial pathology. 2.? No acute cervical spinal fractures or malalignment. Discharge Plan Discharge Clinical Impression: Fall Patient Disposition: Still a Patient Prescriptions: No Action melatonin 3 mg Tablet 3 mg PO BEDTIME PRN (Reason: Sleep) lisinopril 10 mg Tablet 10 mg PO DAILY gabapentin 300 mg Capsule 300 mg PO BEDTIME gabapentin 100 mg Capsule 100 mg PO DAILY carbidopa-levodopa 25-100 mg Tablet 2 tab PO TID@0800,1200,2100 ropinirole 0.25 mg tablet 1 tab PO BEDTIME amlodipine 2.5 mg tablet 1 tab PO TID
[2023-03-15 20:42] LABS: Bilirubin Total 0.4 mg/dL (0.0-1.0)
[2023-03-15 20:44] LABS: INTERNATIONAL NORM RATIO 1.1 (0.9-1.1)
[2023-03-15 22:20] VITALS: BP 164/68; PULSE 71; RESP 17; TEMP 36.8; O2SAT 97
--- NOTE | 2023-03-15 22:30 | PC.NURSE ---
incontinent of urine. was trying to get out of bed unassested. rn and tech were able to have patient stand with minimal assist and bed linens changed. pt brought food and repositioned.
--- NOTE | 2023-03-15 22:55 | PC.NURSE ---
pt exhibiting mild restlessness and some forgetfulness. per MD not new behaviors.
[2023-03-15 23:47] VITALS: BP 171/78; PULSE 76; RESP 18; TEMP 36.6; O2SAT 96
[2023-03-15 23:51] VITALS: BP 92/43; PULSE 119; RESP 19; TEMP 36.8; O2SAT 91
[2023-03-16 00:24] VITALS: BP 157/71; PULSE 66; RESP 16; TEMP 36.7; O2SAT 97
--- NOTE | 2023-03-16 00:37 | PC.NURSE ---
pt sleeping, easily rousable, no acute distress at this time. pending case management.
[2023-03-16 02:00] VITALS: BP 120/70; PULSE 102; RESP 23; O2SAT 86
[2023-03-16 02:37] VITALS: BP 144/75; PULSE 76; RESP 19; O2SAT 97
--- NOTE | 2023-03-16 03:25 | PC.NURSE ---
Pt woke incontinent of urine, bedding changed, pt cleaned, no acute distress at this time, pending CM evaluation.
[2023-03-16 04:10] VITALS: BP 165/82; PULSE 63; RESP 18; TEMP 36.4; O2SAT 97
--- NOTE | 2023-03-16 04:11 | MHC.EDTECH ---
This tech assumed care of patient at 0300AM.hourly rounds completed and vitals were taken, patient was placed into hospital attire. and voided 200cc in urinal. Call lee within reach
--- NOTE | 2023-03-16 04:15 | MHC.EDTECH ---
Patient was incont. of a large amount of urine,pt was cleaned and repositioned.
--- NOTE | 2023-03-16 04:21 | MHC.EDTECH ---
Belongings list completed and placed in chart.
--- NOTE | 2023-03-16 07:06 | PC.NURSE ---
Alert and responsive, denies pain. Resting quietly in bed at this time
[2023-03-16 07:32] VITALS: BP 165/82; PULSE 63; O2SAT 97
--- NOTE | 2023-03-16 08:44 | PC.NURSE ---
Seen by PT, assisted with personal care, able to use urinal independently. Bilateral knees with band aides. Band aides removed, cleansed, new band aids applied. Patient reports skin tears occurred when he slid out of wheelchair.
[2023-03-16 10:36] VITALS: BP 148/71; PULSE 75; RESP 18; O2SAT 98
--- NOTE | 2023-03-16 10:37 | PC.NURSE ---
Patient aware of discharge plan and in agreeement
--- NOTE | 2023-03-16 11:02 | PC.NURSE ---
Patient assisted to change into clothes, needing constant re-direction to not get out of bed independently
--- NOTE | 2023-03-16 11:18 | PC.NURSE ---
Transported home via ems
== END 2023-03-16 11:18 | disposition home or self-care (01) ==
PROVIDERS: Nurse Practitioner Family; Emergency Provider Internal Medicine; PCP Internal Medicine
DX: S09.90XA Unspecified injury of head, initial encounter (principal); R26.2 Difficulty in walking, not elsewhere classified; R94.31 Abnormal electrocardiogram [ECG] [EKG]; R06.02 Shortness of breath; R07.89 Other chest pain; M54.2 Cervicalgia; R51.9 Headache, unspecified; W05.0XXA Fall from non-moving wheelchair, initial encounter; Y93.9 Activity, unspecified; Y92.9 Unspecified place or not applicable; Y99.9 Unspecified external cause status; Z79.899 Other long term (current) drug therapy; Z87.891 Personal history of nicotine dependence
CPT/HCPCS: 36415; 70450; 71046; 72125; 80053; 81003; 83880; 84484; 85025; 85610; 93005; 97162; 99285

== ENCOUNTER → 2023-03-15 19:04 | Outpatient (BNV) | payer MEDICARE, SELFPAY | PROVIDERS: Emergency Provider Internal Medicine; Visit Provider Internal Medicine | DX: I49.3 Ventricular premature depolarization (principal) | CPT/HCPCS: 93010 ==

== ENCOUNTER 2023-04-10 14:41 | Inpatient (IN) | payer MEDICARE, SELFPAY ==
[2023-04-10] VITALS (8 sets, daily range): BP systolic 117–144; BP diastolic 70–100; PULSE 87–124; RESP 18–24; TEMP 36.1–37.9; O2SAT 92–98; BMI 21.9; BMI 21.6
--- NOTE | ~2023-04-10 | XR_ITS ---
EXAMINATION: XR CHEST CLINICAL INFORMATION: Shortness of breath COMPARISON: 03/15/2023 chest radiographs. TECHNIQUE: Frontal view of the chest was obtained. FINDINGS: No significant abnormality is noted involving the heart, lungs, mediastinum, bony thorax or soft tissues. XR/XR chest 1V IMPRESSION: No acute cardiopulmonary process.
--- NOTE | 2023-04-10 15:00 | ECG_ITS ---
Test Reason : WEAKNESS Blood Pressure : / mmHG Vent. Rate : 122 BPM Atrial Rate : 000 BPM P-R Int : 000 ms QRS Dur : 106 ms QT Int : 344 ms P-R-T Axes : 000 002 -07 degrees QTc Int : 490 ms Atrial fibrillation with rapid ventricular response Minimal voltage criteria for LVH, may be normal variant ( Brett product ) Nonspecific T wave abnormality Abnormal ECG When compared with ECG of 15-MAR-2023 19:29, Atrial fibrillation has replaced Sinus rhythm Vent. rate has increased BY [address] no longer depressed in Lateral leads Nonspecific T wave abnormality now evident in Inferior leads Nonspecific T wave abnormality, worse in Anterolateral leads Referred By: Meena Crisostomo Electronically Signed By:JOSE A ROSAS
--- NOTE | 2023-04-10 15:25 | ED_ITS ---
HPI - Weakness General Chief complaint: Weakness Stated complaint: WEAK SINCE T-1,SOB 97% RA Time Seen by Provider: 04/10/23 14:59 Source: patient Mode of arrival: EMS History of Present Illness HPI Narrative: 68-year-old male who was progressively feeling more weak for the past 1/2 hour but denies any shortness of breath, palpitations, chest pain, dizziness, fevers or chills. Patient reports that he fell earlier today after tripping on some rocks, denies blood thinners. Otherwise, no GI or symptoms. Related Data Home Medications Medication Instructions Recorded Confirmed carbidopa 25 mg-levodopa 100 mg 2 tab PO TID@0800,1200,2100 12/23/21 12/26/22 tablet gabapentin 100 mg capsule 100 mg PO DAILY 12/23/21 12/26/22 gabapentin 300 mg capsule 300 mg PO BEDTIME 12/23/21 12/26/22 lisinopril 10 mg tablet 10 mg PO DAILY 12/23/21 12/26/22 melatonin 3 mg tablet 3 mg PO BEDTIME PRN Sleep 12/23/21 12/26/22 ropinirole 0.25 mg tablet 1 tab PO BEDTIME 04/23/22 12/26/22 amlodipine 2.5 mg tablet 1 tab PO TID 09/17/22 12/26/22 Allergies Allergy/AdvReac Type Severity Reaction Status Date / Time No Known Allergies Allergy Verified 03/15/23 18:56 Review of Systems Review of Systems: Pertinent positives and negatives as stated HPI [facility] Past Medical History Source: nursing notes reviewed Medical History Atrial fibrillation with rapid ventricular response Cardiomyopathy CHF (congestive heart failure) HTN (hypertension) Parkinson disease Surgical History H/O spinal fusion Family History Family History Mother CAD (coronary artery disease) Social History Social History Household Members: None Housing: House Do you presently have visiting nurse or other home services: Yes Unable to assess alcohol history related to: Unknown Alcohol intake: former Patient Tobacco Use Status: Former Tobacco user e-Cigarette/Vaping Use: Never Used Substance Use Type: Marijuana Advance Directives: Yes Advance Directives on File: Yes Advance Directives Date on File: 12/27/21 service: No Current occupational status: retired Physical Exam Vital Signs: Vital Signs: Last Vital Signs Temp 100.3 F 04/10/23 15:11 Pulse 118 H 04/10/23 15:53 Resp 24 H 04/10/23 15:53 BP 134/100 H 04/10/23 15:53 Pulse Ox 92 04/10/23 15:53 O2 Del Method Room Air 04/10/23 15:53 BMI result Body Mass Index 21.9 VITAL SIGNS: Reviewed. GENERAL: Chronically ill, elderly, in no acute distress. HEAD: Normocephalic/atraumatic EYES: PERRLA, EOMI EARS: Ext canals without abnormality NOSE: Nares patent bilateral OROPHARYNX: no oral lesions noted, posterior pharynx clear, dry mucosa NECK: Supple, no adenopathy LUNGS: Normal breath sounds. No adventitious sounds or accessory muscle use. SpO2<92> CARDIOVASCULAR: Regular rate and rhythm without noted murmurs, no JVD or lower extremity edema. ABDOMEN: Soft, non-tender, non-distended with bowel sounds. MUSCULOSKELETAL: No tenderness, deformities, or effusions noted on gross inspection. EXTREMITIES: No cyanosis, clubbing or edema. SKIN: Inspection of the skin reveals no rashes NEUROLOGIC: Alert and oriented x 2. Strength and sensation to light touch were grossly intact x 4. Medications Administered Discontinued Medications Generic Name Dose Route Start Last Admin Trade Name Freq PRN Reason Stop Dose Admin Acetaminophen 975 mg 04/10/23 16:07 04/10/23 16:11 Acetaminophen 325 Mg Tablet PO 04/10/23 16:08 975 mg ONCE ONE Administration Sodium Chloride 1,000 mls @ 999 mls/hr 04/10/23 15:30 04/10/23 16:05 Ns IV 04/10/23 16:30 999 mls/hr .Q1H1M STEPH Administration Metoprolol Tartrate 5 mg 04/10/23 16:00 04/10/23 16:04 Metoprolol Tartrate 5 Mg/5 Ml Vial IVPUSH 04/10/23 16:01 5 mg ONCE ONE Administration Medical Decision Making Medical Decision Making MDM Narrative: 68-year-old male with history and clinical presentation, DDX: Atrial fibrillation with RVR, will evaluate for presence of infection, anemia, e lectrolyte abnormalities. 1600: Patient required 5 mg of Lopressor, IV Push, patient also to receive on 175 mg of Tylenol. Signed out to Dr Isak Samaniego f/u labs Differential Diagnosis Differential Diagnoses: The differential diagnosis associated with the presentation includes Please see the discussion Admission/Observation Consideration of admission/observation: Escalation of care including admission/observation considered Please see the discussion above Lab Data 04/10/23 15:37 04/10/23 15:38 Labs: Lab Results 04/10/23 04/10/23 04/10/23 Range/Units 15:38 15:38 15:38 PT 15.6 H (11.1-13.3) SEC INR 1.3 H (0.9-1.1) Sodium 147 H (135-145) mmol/L Potassium 4.0 (3.3-5.1) mmol/L Chloride 112 H (96-108) mmol/L Carbon Dioxide 25 (22-29) mmol/L Anion Gap 14 (12-20) BUN 19 H (9-16) mg/dL Creatinine 0.84 (0.5-1.4) mg/dL Estim Creat Clear Calc 83.7 Estimated GFR > 60 Random Glucose 116 H (60-115) mg/dL Lactic Acid (0.5-2.0) mmol/L Calcium 9.4 (8.4-10.2) mg/dL Total Bilirubin 0.8 (0.0-1.0) mg/dL AST 19 (5-37) U/L ALT 6 (0-40) U/L Alkaline Phosphatase 103 (39-117) U/L Troponin I High Sens 30.9 D (<3.5-35.0) ng/L Total Protein 7.2 (6.5-8.0) g/dL Albumin 3.9 (3.5-5.0) g/dL 04/10/23 Range/Units 15:38 PT (11.1-13.3) SEC INR (0.9-1.1) Sodium (135-145) mmol/L Potassium (3.3-5.1) mmol/L Chloride (96-108) mmol/L Carbon Dioxide (22-29) mmol/L Anion Gap (12-20) BUN (9-16) mg/dL Creatinine (0.5-1.4) mg/dL Estim Creat Clear Calc Estimated GFR Random Glucose (60-115) mg/dL Lactic Acid 2.0 (0.5-2.0) mmol/L Calcium (8.4-10.2) mg/dL Total Bilirubin (0.0-1.0) mg/dL AST (5-37) U/L ALT (0-40) U/L Alkaline Phosphatase (39-117) U/L Troponin I High Sens (<3.5-35.0) ng/L Total Protein (6.5-8.0) g/dL Albumin (3.5-5.0) g/dL Independent Interpretation I performed an independent interpretation of an: EKG Interpretation: Interval fibrillation with RVR, no STEMI, QRS within normal limits, QTC mildly prolonged at 490. Critical Care Time Critical Care Time Critical Care Time: Yes Total Critical Care Time: 30 Attestation: I personally attest to this time spent taking care of the patient. Discharge Plan Discharge Clinical Impression: Atrial fibrillation with RVR Patient Disposition: Still a Patient Prescriptions: No Action melatonin 3 mg Tablet 3 mg PO BEDTIME PRN (Reason: Sleep) lisinopril 10 mg Tablet 10 mg PO DAILY gabapentin 300 mg Capsule 300 mg PO BEDTIME gabapentin 100 mg Capsule 100 mg PO DAILY carbidopa-levodopa 25-100 mg Tablet 2 tab PO TID@0800,1200,2100 ropinirole 0.25 mg tablet 1 tab PO BEDTIME amlodipine 2.5 mg tablet 1 tab PO TID
[2023-04-10 15:54] LABS: Basophils Percent Auto 0.3 % (0-2); Hematocrit 41.4 % (42.0-52.0); Hemoglobin 12.9 g/dl (14.0-18.0); Imm Gran Abs Auto 0.05 X10*3/uL (0.00-0.03); Imm Gran Pct Auto 0.4 % (0.0-0.4); Lymphocytes Absolute Auto 1.2 X10*3/uL (1.2-4.9); Lymphocytes Percent Auto 10.2 % (20-40); MANUAL DIFF FLAG SCAN; Mean Corpuscular HGB Conc 31.2 g/dl (31.0-36.0); Mean Corpuscular Volume 96.3 fL (80.0-98.0); Mean Platelet Volume 9.3 fL (9.4-12.4); Monocytes Absolute Auto 1.7 X10*3/uL (0.1-1.2); Monocytes Percent Auto 14.9 % (2-11); Neutrophils Absolute Auto 8.6 x10*3/uL (2.0-8.3); Neutrophils Percent Auto 74.2 % (45-73); Platelet Count 439 X10*3/uL (160-400); Red Cell Distribution Width 13.2 % (11.0-16.0); SCAN SMEAR FLAG 1; White Blood Count 11.6 X10*3/uL (4.8-10.8)
[2023-04-10 15:55] LABS: INTERNATIONAL NORM RATIO 1.3 (0.9-1.1); Prothrombin Time 15.6 SEC (11.1-13.3)
[2023-04-10] MEDS: Metoprolol Tartrate 5 MG/5 ML VIAL IVPUSH (16:04)
[2023-04-10] MEDS: 0.9 % Sodium Chloride 1,000 ML 999 ML IV (16:05)
[2023-04-10 16:06] LABS: Alanine Aminotransferase 6 U/L (0-40); Albumin Level 3.9 g/dL (3.5-5.0); Alkaline Phosphatase 103 U/L (39-117); Anion Gap 14 (12-20); Aspartate Amino Transferase 19 U/L (5-37); Bilirubin Total 0.8 mg/dL (0.0-1.0); Blood Urea Nitrogen 19 mg/dL (9-16); Calcium 9.4 mg/dL (8.4-10.2); Carbon Dioxide 25 mmol/L (22-29); Chloride 112 mmol/L (96-108); Creatinine Clr Calc Pharmacy 83.7; Estimated Glomerular Filt Rate > 60; Glucose Random 116 mg/dL (60-115); Sodium 147 mmol/L (135-145); Total Protein 7.2 g/dL (6.5-8.0)
[2023-04-10 16:08] LABS: Troponin-I High Sensitivity 30.9 ng/L (<3.5-35.0)
[2023-04-10] MEDS: Acetaminophen 325 MG TABLET 975 MG PO (16:11)
--- OUTSIDE RECORDS SUMMARY | 2023-04-10 16:27 | XMS_ITS | Continuity of Care Document ---
Author Name Unknown Organization [facility] ter Address [address] [place] [id number]- Care Team Providers Care Trial Justice Name Role Phone Erika CHAPARRO, Lin Tidwell Primary Care Physician Encounter [facility] R [id number] Date(s): 04/04/23 - 04/04/[address] [address] Discharge Disposition: A-D/C Home Attending Physician: Amadeo Bojorquez MD Admitting Physician: Amadeo Bojorquez MD Referring Physician: Lisbeth Molina NP Allergies, Adverse Reactions, Alerts No Known [...] Daily, # 30 tablet, 3 Refills, Maintenance, 03/27/23 14:44:00 EDT, Tablet, [id number], Partial fill upon patient request if the prescription is for a schedule II opioid drug. Start Date: 03/27/23 Status: Ordered gabapentin 100 mg oral capsule [...] tablet, Refills 3, Tot. Refills 3, Maintenance, 03/27/23 14:43:00 EDT, Route to Pharmacy Electronically, [facility] #[id number], Partial fill upon patient request if the prescription is for a schedule II... Start Date: 03/27/23 Status: Ordered rOPINIRole 0.25 mg oral tablet 1 tablet = 0.25 mg, By Mouth, Daily at bedtime, # 30 tablet, 0 Refills, Maintenance, 08/25/22 16:19:00 EST, Tablet, Partial fill upon patient request if the prescription is for a schedule II opioid drug. Start Date: 08/25/22 Stop Date: 09/24/22 Status: Ordered Vital Signs Most recent to oldest [Reference Range]: 1 2 3 Height 180 cm (04/04/23 7:17 AM) Weight 67.0 kg (04/04/23 7:17 AM) Oxygen Saturation [94-100 %] 93 % *L* (04/04/23 12:00 PM) 95 % (04/04/23 11:30 AM) 93 % *L* (04/04/23 11:00 AM) Pulse Rate [55-90 bpm] 120 bpm *H* (04/04/23 7:17 AM) Body Mass Index [18.5-24.99 kg/m2] 20.68 kg/m2 (04/04/23 7:17 AM) Blood Pressure [90-138/55-84 mm Hg] 124/112mm Hg (04/04/23 12:00 PM) 114/76mm Hg (04/04/23 11:30 AM) 117/70mm Hg (04/04/23 11:00 AM) Respiratory Rate [16-30 br/min] 20 br/min (04/04/23 12:00 PM) 19 br/min (04/04/23 11:30 AM) 20 br/min (04/04/23 11:00 AM) Temperature [96.8-100.4 DegF] 98.4 DegF (04/04/23 7:17 AM) Mode of Delivery (Oxygen) Room air (04/04/23 12:00 PM) Room air (04/04/23 11:30 AM) Room air (04/04/23 11:00 AM) Blood pressure sites Arm, left (04/04/23 12:00 PM) Arm, left (04/04/23 11:30 AM) Arm, left (04/04/23 11:00 AM) Temperature Route Temporal (04/04/23 7:17 AM) Dry Weight 67.0 kg (04/04/23 7:17 AM) Weight Obtained Via Standing scale (04/04/23 7:17 AM) Dry Weight Obtained Via Standing scale (04/04/23 7:17 AM) Cardiac catheterization study * Event Display: Cardiac Furnace Puncher Report Authored Date: Cardiac Diagnostic Report Demographics Patient Name ENMANUEL MORAES Gender Male [employer] Room Number B210 Height 70.87 inches Date of 1955 Weight 147.71 pounds Age 68 year(s) BSA 1.85 m2 Accession Number [id number] BMI 20.68 kg/m2 Referring Physician Amadeo Bojorquez MD Date of Study 04/04/2023 Performing Physician Amadeo Bojorquez MD Fellow Ej Lin MD Interventional Physician Procedure Procedure Type Diagnostic procedure:Coronary Angiography, LHC and Ventriculogram ACC Diagnostic Catheterization Status:Elective Indications Indications: Abnormal nuclear perfusion study. Clinical History Admission Medications + +------+--------+ + + +---------+ !Medication !Dosage!Times !Last !Last !Administered !Comments ! ! ! !Per Day !Delivery !Delivery ! ! ! ! ! ! !Date !Time ! ! ! + +------+--------+ + + +---------+ !TERRA Inhibitor! ! ! ! ! ! ! !(any) ! ! ! ! ! ! ! + +------+--------+ + + +---------+ !Calcium ! ! ! ! ! ! ! !Channel ! ! ! ! ! ! ! !Alisson ! ! ! ! ! ! ! + +------+--------+ + + +---------+ Clinical Evaluation Leading to Procedure Diagnosed on 04/04/2023 00:00. - There were no CAD presentation symptoms. - There were no anginal symptoms. - The reason for the patient's lab associate visit is pre-operative evaluation before non-cardiac surgery. Pharma Nuclear study showed Positive results Additional Clinical History:68-year-old male with possible history of COPD, hypertension, Parkinson's, orthostatic hypotension and frequent falls. Echocardiogram demonstrated EF of 45 to 50%. A stress test was ordered as part of a preoperative evaluation for shoulder surgery suggesting inferolateral ischemia. He is referred for coronary angiography Procedure Data Procedure Date Date: 04/04/2023Start: 08:06End: 08:55 The procedure was explained in detail to the patient. Risks, complications and alternative treatments were reviewed. Written consent was obtained. Entry Locations - Retrograde Percutaneous access was performed through the Right Radial artery (Primary location). A 6 Fr sheath was inserted. Hemostasis was successfully obtained using TR Band. Closure Comments: 12ml. Procedure Medications - Fentanyl I.V. 25 mcg. - Lidocaine 2% S.C. Right Wrist 2 ml. - Oxygen NC 2 l/min. - Nitroglycerin I.A. 200 mcg. - Heparin I.V. 4000 units. Sedation: My intra-service moderate sedation time was: from 843 to 857. Refer to procedural log for detailed chronological information. Contrast Material - Omnipaque 35 ml Diagnostic Catheters - [id number] RADIAL TIG 4.0 RADIFOCUS OPTITORQUE CATHETERwas used for: Left heart catheterization. - [id number] RADIAL TIG 4.0 RADIFOCUS OPTITORQUE CATHETERwas used for: Left coronary angiography. - [id number] RADIAL TIG 4.0 RADIFOCUS OPTITORQUE CATHETERwas used for: Right coronary angiography. Fluoroscopy Time: Diagnostic: 1:17 minutes. Total: 1:17 minutes. Fluoroscopy Dose: Diagnostic: 53 mGy. Total: 53 mGy. Dose Area Product:Diagnostic: 3970 mGy/cm2. Total: 3970 mGy/cm2. Dose Area Product:Diagnostic: 397 ??Gy/m2. Total: 397 ??Gy/m2. Angiographic Findings Cardiac Arteries and Lesion Findings LMCA: Minimal luminal irregularities. LAD: Minimal luminal irregularities. Lesion in Dist LAD: Mid subsection.30% stenosis . Pre procedure JULISSA III flow was noted. LCx: Lesion in Prox CX: Distal subsection.30% stenosis . Pre procedure JULISSA III flow was noted. RCA: Normal. Hemodynamics Condition: Rest O2 Consumption: Estimated: 234.99Heart Rate: 99 bpm Pressures (mmHg) +-----+ + !Site !Pressure ! +-----+ + !LV !102/19 ,12 ! +-----+ + !AO !110/82 (94)! +-----+ + !LV !84/9 ,13 ! +-----+ + !AO !111/81 (93)! +-----+ + Valve Gradients and Areas +------+----+----+----+-----+----+------+ !Valve !Peak!Mean!Area!Index!Flow!Source! +------+----+----+----+-----+----+------+ !Aortic!0 ! ! ! ! ! ! +------+----+----+----+-----+----+------+ !Aortic!0 ! ! ! ! ! ! +------+----+----+----+-----+----+------+ Shunts Oxygen Values O2 Consumption 234.99 Interventional Procedure Conclusions Diagnostic Summary No obstructive coronary artery disease (>50% stenosis) Normal left ventricular end-diastolic pressure No significant gradient identified across aortic valve on pullback Right radial artery hemostatic with a compressive device Diagnostic Recommendations No significant coronary artery disease was identified suggesting the stress test was a false positive. Continue current GDMT for prevention of coronary artery disease. The patient appears to be a acceptable risk for shoulder surgery from a cardiac perspective. ACC Diagnostic Recommendations: Medical therapy and/or counseling. Complications:None. Signatures * Event Display: Cardiac Furnace Puncher Report Authored Date: EKG study * Event Display: ECG 12-Lead Authored Date: Please click on pdf link to open report * Event Display: ECG 12-Lead Authored Date: Ventricular Rate: 117 BPM Atrial Rate: 365 BPM QRS Duration: 104 ms Q-T Interval: 340 ms QTC Calculation(Bazett): 474 ms R Railroad: 3 degrees T Railroad: 88 degrees Atrial fibrillation Left ventricular hypertrophy with repolarization abnormality Abnormal ECG No previous ECGs available Confirmed by NIRANJAN GRAY MD ([id number]) on 04/04/2023 9:08:12 AM [place]: NIRANJAN GRAY MD Note * Evangelina Belle RN: PERFORM, SIGN, VERIFY Event Display: Cardiac Rehab Note Authored Date: Patient: DIMITRY SINGER Age: 68 years Sex: Male : 1955 Associated Diagnoses: None Author: Evangelina Belle RN Chart reviewed, cath today demonstrated no significant coronary artery disease suggestive of false positive stress test. Will sign off- please page [phone] with questions or if pts condition changes * Nancy Phelps: PERFORM Event Display: Discharge/Transfer Note Hospital Authored Date: Nursing Discharge Note Entered On: 04/04/2023 12:14 EDT Performed On: 04/04/2023 12:13 EDT by Nancy Phelps Nursing Discharge Note 2 Discharge Time : 04/04/2023 12:12 EDT Discharge Level of Care at Discharge : Home/Halfway/Foster Care Patient Left Unit Via : Wheelchair Patient Accompanied Off Unit with : Significant other DC Instructions Provided & Signed by Pt : Yes Patient Understands D/C Instructions : Yes Patient Instructions Discharge Signed : Yes Discharge Comments : d/c papers reviewed and signed. IVs discontinued. pt left unit in wheelchair with partner Did Pt have Specialty Bed or Wound Vac : No Nancy Phelps - 04/04/2023 12:13 EDT * Nancy Phelps: MODIFY, PERFORM Event Display: Patient Education/Instruction Authored Date: [id number] Inpatient Adult Discharge Instructions [address] [address] Name: DIMITRY SINGER : 1955 Visit: 04/04/2023 06:25:00 Current Date: 04/04/2023 10:40 Account: [id number] Inpatient Adult Discharge Instructions We would like to thank you for allowing us to assist you with your healthcare needs. The following includes patient education materials and information regarding your injury/illness. Our entire staffstrives to provide an excellent experience for our patients and their families. PLEASE ENSURE YOU FOLLOW-UP PER THE INSTRUCTIONS BELOW! ?? YOUR OPINION IS IMPORTANT TO US! Please complete the survey you may receive by mail or email. Your feedback will be used to make improvements to the healthcare experiences of our patients and their families. Surveys are administered by [employer] ?? If further treatment with your primary care physician or another doctor is recommended, it is important for you to keep the appointment. Call your primary care physician or return to the Emergency Department immediately if your condition worsens, fails to improve, or new symptoms develop. If you need to find a doctor, you can call [facility] for a referral at [phone] or toll free at [phone]) or log in to [email or web address].. ?? You can view and manage your care through the patient portal or by using a health care jon of your choosing. [employer] is a website that allows you to securely view your medical information including your hospital discharge summary, office visit summaries, medications and follow-up visits. You can also request appointments, renew medications, and request access to your medical information using a health care jon of your choosing, or just ask a question. You can enroll at [email or web address] or register during your next office visit. You have been discharged from [facility], Patient Care Unit: CARE. If you have any questions regarding these instructions after you leave, please call us and we will be happy to assist you. [facility] Your Care Team Attending Physician [place] ANDRE, Amadeo Fuentes Discharging Providers Riley ANDRE, Ej Reason for Admission CAD LHC?PCI HV2 630AM ARR Tests Performed Below is a partial list of the tests performed during your hospitalization. You may have had other tests and procedures not included in this list. Please discuss all test results with your provider. CBC Creatinine Lytes Type and Screen Primary Care Provider Lin James NP Advance Directive Health Care Proxy on File No Discharge Vitals Temperature: 98.4 DegF Height: 180 cm Pulse Rate:??120 bpm??High Weight: 67 kg Respiratory Rate: 18 br/min Body Mass Index: 20.68 kg/m2 Systolic Blood Pressure: 109 mm Hg Body surface area: 1.83 Diastolic Blood Pressure: 83 mm Hg ?? Oxygen Saturation:??93 %??Low ?? Studies Pending All tests and labs ordered during this hospital stay have been completed unless listed below. Please discuss all pending results with your provider listed above in these instructions. ?? No incomplete studies found What to do next Instructions From Your Doctor Discharge Orders Instructions from your Care Team if you have questions or concerns afters discharge, you can call the CARE unit at [phone] Scheduled Follow-Up Appointments Sunday 9:40 AM EDT ?? With: Art Fontanez MD Where: [facility] [address] [place] [address]- Status: Pending Sunday 1:00 PM EDT ?? With: Elton Delacruz MD Where: [facility] [address] [facility] 3rd Floor, [address] [place] [address]- Status: Pending You Need to Schedule the Following Appointments Follow Up with??Lisbeth Molina NP Where: [address] [facility] [place] [address]- Discharge Medications DIMITRY SINGER :1955 Visit Date:04/04/2023 Medications: Please continue your medications until treatment is completed or stopped by your provider. Medications not listed below should be discontinued. Discuss any questions related to medications with your provider. What How Much When Why Instructions Next Dose Unchanged Amlodipine (amLODIPine 2.5 mg oral tablet) 3 tab(s) continue taking as prescribed Unchanged Carbidopa-Levodopa (carbidopa-levodopa 25 mg-100 mg oral tablet) 2 tab(s) Oral 3 times a day continue taking as prescribed Unchanged Escitalopram (escitalopram 5 mg oral tablet) 1 tab(s) Oral Daily continue taking as prescribed Unchanged Gabapentin (gabapentin 100 mg oral capsule) 1 capsule Oral Twice a day continue taking as prescribed Unchanged Lisinopril (lisinopril 10 mg oral tablet) 1 tab(s) Oral Daily continue taking as prescribed Unchanged Melatonin (Melatonin 3 mg oral tablet) 1 tab(s) Oral Daily at Bedtime as needed for for insomnia continue taking as prescribed Unchanged Quetiapine (QUEtiapine 25 mg oral tablet) 1 tab(s) Oral Daily at Bedtime continue taking as prescribed Unchanged Ropinirole (rOPINIRole 0.25 mg oral tablet) 1 tab(s) Oral Daily at Bedtime Duration: 30 Days continue taking as prescribed Test Results Below is a partial list of the most recent Laboratory test results done prior to this discharge. You may have had other tests and procedures not included in this list. Please discuss all test resultswith your provider. Est Creatinine Clearance - 73.41 mL/min (04/04/2023) CBC (04/04/2023) ???WBC - 7.2 k/mm3???RBC - 3.86 m/mm3???Hgb - 11.5 Gm/dL???Hct - 37.3 %???MCV - 96.6 femtoliters???MCH - 29.8 pg???MCHC - 30.8 g/dL???Platelet Count - 297 k/mm3???RDW-SD - 44.3 femtoliters???MPV - 9.7 femtoliters???Nucleated RBC (Automated) - 0.0 #/100 WBC'S???Abs. NRBC - 0.0 k/mm3 Creatinine (04/04/2023) ???Creatinine-Blood - 0.9 mg/dL???Estimated GFR Creatinine - 93 ML/MIN/1.73 M2 Lytes (04/04/2023) ???Sodium - 145 mmol/L???Potassium - 4.2 mmol/L???Chloride - 108 mmol/L???Bicarbonate Level - 26 mmol/L???Anion Gap - 11 Type and Screen (04/04/2023) ???Blood Type - A Positive???Antibody Screen - Negative Allergies (NKA means No Known Allergies) No Known Medication Allergies Problems No qualifying data available Education Materials Below is the list of Educational Leaflet Providered with your Discharge Instructions. Surgery Radial Cath Approach Discharge Instructions?? Recovery After Procedural Sedation (Adult)?? Discharge Instructions for Cardiac Catheterization?? Bleeding or Hematoma After Cardiac Catheterization?? Valuables and Belongings I fully understand and agree that [facility] accepts no responsibility for all my personal property including clothing, toilet articles, radios, jewelry, dentures, hearing aids, rings, money, or any other property that is in my possession or is brought to me after admission. I understand certain valuables may be placed in a hospital safe for a short period of time. I understand that the hospital is not liable for loss or damage due to accident, fire, or other natural occurrence while said property is in the safe. I accept full responsibility for any personal property that I keep with me, and will not hold the hospital responsible in case of loss or disappearance. I acknowledge that i have been encouraged to send valuables and belongings home. ?? Review of Valuable and Belonging List: With patient Date for Pt to Sign Valuables/Belongings: 04/04/23 07:21:00 ?? Other Discharge Information ? Pulmonary Rehab Status?? Pulmonary Rehab Discharge Status?? Respiratory Rate: 18 br/min ? Common Emergency Awareness Tips IS IT A STROKE? Act FAST and Check for these signs: FACE Does the face look uneven? ARM Does one arm drift down? SPEECH Does their speech sound strange? TIME Call at any sign of stroke ?? Heart Attack Signs Chest discomfort: Most heart attacks involve discomfort in the center of the chest and lasts more than a few minutes, or goes away and comes back. It can feel like uncomfortable pressure, squeezing, fullness or pain. Discomfort in upper body: Symptoms can include pain or discomfort in one or both arms, back, neck, jaw or stomach. Shortness of breath: With or without discomfort. Other signs: Breaking out in a cold sweat, nausea, or lightheaded. Remember, MINUTES DO MATTER. If you experience any of these heart attack warning signs, call to get immediate medical attention! ?? Smoking can increase your chances of developing chronic health problems and can cause harmful effects to other family members in your house. If you smoke, you are strongly encouraged to quit. Please call [facility] [employer] Link at [phone] or [phone] ([phone]) or log in to [email or web address] for referrals to smoking cessation programs. ?? 813 Suicide & Crisis Lifeline is available 05/03 if you or someone you know needs to find a reason to keep living. By calling 057 you'll be connected to a skilled, trained counselor at a crisis center in your area. INPATIENT DISCHARGE INSTRUCTIONS SIGNATURE PAGE DIMITRY SINGER Location:[facility] Registration Date and Time:04/04/2023 06:25 EDT Primary Care Physician: Lin James NP, Attending Physician: Amadeo Bojorquez MD, I DIMITRY SINGER, have received the above patient education materials/instructions and have verbalized understanding. If ambulance or transport services are being used I further acknowledge being given a choice of service. ?? If you need to contact me, please call me at this number: . Patient/Drapery Cutter Name: Patient/Drapery Cutter Signature: Relationship to Patient: Witness Name/Signature: Date: * Nancy Phelps: PERFORM Event Display: Patient Education Leaflets Authored Date: [id number] Surgery Radial Cath Approach Discharge Instructions ?? 278 Radial Cath Approach Discharge Instructions ?? Activity Take it easy the rest of the day. Limit your activity on the affected side.?? Act as if your arm is broken for 24 hours. No lifting with affected arm for 24 hours. No pushing or pulling with the affected arm. Do not reach or lift with the affected arm. Do not place excessive pressure on the wrist. ?? Precautions Due to intravenous sedation: It is recommended that someone stay with you for the first night after your procedure. Do not drive or operate hazardous machinery for 24 hours. Do not make legal decisions for 24 hours. Avoid alcohol for 24 hours. Unless directed otherwise, keep yourself hydrated. ?? Dressing/Incision Care You may remove the dressing 24 hours after your procedure. Replace with band aid for an additional 24 hours. You may shower and cleanse the site with soap & water then pat dry. Avoid submersion of site in water x 5 days. Cover the with a clean band aid daily until site is healed. If the band aid becomes soiled, replacewith a clean new one. Do not apply any ointments, lotions, gels or powders to the puncture site. ?? When to contact your doctor If any of the following signs of infection occur: Fever greater than 100 degrees F Increased pain Drainage, redness or warmth at puncture site Tingling of the fingers and hand that last longer than 3 days Slight bubble of blood or bleeding from site: apply manual pressure and notify your doctor ?? Emergency situations: Bleeding from the site that will not stop: apply manual pressure and notify your doctor Profuse bleeding streaming from the puncture site: Apply manual pressure and notify your doctor immediately If your hand becomes bluish, cold to the touch, or painful, notify your doctor immediately or go toEmergency Department. For these emergent situations: If unable to contact your physician, call 911. ?? * Nancy Phelps: PERFORM Event Display: Patient Education Leaflets Authored Date: [id number] Recovery After Procedural Sedation (Adult) ?? [id number] Recovery After Procedural Sedation (Adult) You have been given medicine by vein to make you sleep during your procedure. This may have included both a pain medicine and sleeping medicine. Most of the effects have worn off. But you may still have some drowsiness for the next 6 to 8 hours. Home care Follow these guidelines when you get home: ??? For the next 8 hours, you should be watched by a responsible adult. This person should make sure your condition is not getting worse. ??? Don't drink any alcohol??for the next 24 hours. ??? Don'tdrive, operate dangerous machinery, or make important business or personal decisions??during the next 24 hours. Note: Your healthcare provider may tell you not to take any medicine by mouth for pain or sleep in the next 4 hours. These medicines may react with the medicines you were given in the hospital. This could cause a much stronger response than usual. ?? Follow-up care Follow up with your healthcare provider as advised. Also follow up with your provider if you are not alert and back to your usual level of activity within 12 hours. ?? When to seek medical advice Have someone call your healthcare provider right away if any of these occur: ??? Drowsiness gets worse ??? Weakness or dizziness gets worse ??? Repeated vomiting ??? Severe or ongoing pain from the procedure that's not eased by the pain medicine (if prescribed) ??? Fever ??? New rash ?? Call 911 Have someone call 911 if you have any of these: ??? Shortness of breath ??? Chest pain ??? Loss of consciousness or you can't be awakened ?? Last Reviewed Date: 2021 ?? The [employer]. All rights reserved. This information is not intended as a substitute for professional medical care. Always follow your healthcare professional's instructions. ?? * Nancy Phelps: PERFORM Event Display: Patient Education Leaflets Authored Date: [id number] Discharge Instructions for Cardiac Catheterization ?? [address] Discharge Instructions for Cardiac Catheterization Cardiac catheterization??is an invasive??procedure??to look for certain heart problems. These problems may affect the heart's chambers, valves, and blood vessels. A thin, flexible tube (catheter) is put in a blood vessel in your groin or arm. The catheter is moved to the heart. The healthcare provider can look at the blood flow, blood pressure, and oxygen. They can inject contrast fluid??into your blood. This flows to your heart.??The provider can then take X-rays pictures?? of your heart. Coronary angiography is often done as part of a cardiac cath. This looks for blocked areas in the arteries that send blood to the heart. If a blockage is found, your provider may try to open up the artery. They may put a stent in place. Your provider will talk with you about the results of your procedure . Ask any questions you have before you leave. This sheet will help you take care of yourselfat home. Home care ??? Have a responsible adult drive you home after your procedure. ??? Don't drive or makeany important decisions for at least 24 hours after getting any type of sedation or anesthesia.? Drink?? 6 to 8??glasses of water over the next 24 hours. This is to help flush the contrast dye out of your body. Call your healthcare team if your urine has any change in color. ??? Take your tempe rature each day for 3 to 5 days. If you feel cold and clammy or start sweating, take your temperature right away. Call your healthcare team. ??? Do only light and easy activities for??the next?? 2 to3??days. Ask for help with chores and errands while you recover. Have someone drive you to your appointments. ??? Don't lift anything heavy??until your healthcare team says it's safe. ??? Ask your healthcare team when you can expect to return to work. Unless your job involves lifting, you may be able to return to your normal activities within 2 days. ??? Take your medicines as directed. Don't skip doses. ??? Check your incisions every day for signs of infection. These include redness, swelling,and fluid leaking. It's normal to have a small bruise or bump where the catheter was put in. A bruise that's getting larger is not normal. Tell your healthcare team about this. Call your healthcare team if you see blood forming in the incision. Go to the emergency room if you have uncontrolled bleeding from the artery site. This is even more important if you take medicines that make it hard for your blood to clot. These include aspirin, clopidogrel, warfarin, apixaban, and rivaroxaban. ??? Eat a healthy diet. Make sure it's low in fat, salt, and cholesterol. Ask your healthcare team for diet information. ??? Stop smoking. Sign up for a quit-smoking program. Or ask your healthcare team for help. ??? Exercise as your healthcare team tells you to. Your healthcare team??may advise you to start a cardiac rehab program. Cardiac rehab is an exercise program where trained healthcare staff watchyour progress and stress on your heart while you exercise. Ask your team how to enroll. ??? Don't swim or take baths until your healthcare team says it???s OK. You can shower the day after the procedure. Keep the site clean and dry. This keeps the incision from getting wet and infected until the skin and artery can heal. ??? Follow all other after-care instructions from your team.? Follow-up care ??? Make a follow-up appointment as advised. It's common to have a follow-up appointment 2 to 4 weeks after an angioplasty or coronary stent procedure. ??? Make a yearly appointment. This is??to make sure you're still doing well and not having any new symptoms. ??? Don't wait for a follow-up appointment if your medicines aren't working or you're having heart-related symptoms. Call your healthcare provider. ?? When to get medical care Call your healthcare provider right away if you have any of these: ??? Severe or increasing pain, numbness, coldness, or a bluish color in the leg or arm that held the catheter ??? Fever of 100.4?? F??( 38??C) or higher, or as advised by your healthcare provider ??? Signs of infection at the incision site. These include redness, swelling, drainage, or warmth. ??? Bleeding, bruising, or a lot of??swelling where the catheter was inserted ??? Blood in your urine ??? Black or tarry stools ??? Any unusual bleeding ??? Irregular, very slow, or fast heartbeat ??? Dizziness ?? Call 911 Call 911 if you have any of these: ??? Chest pain ??? Shortness of breath ??? Sudden numbness or weakness in arms, legs, or face, or trouble speaking ??? The puncture site swells up very fast ??? Bleeding from the puncture site that doesn't slow down with firm pressure ?? Last Reviewed Date: 2021 ?? 2686-1171 [employer]. All rights reserved. This information is not intended as a substitute for professional medical care. Always follow your healthcare professional's instructions. ?? Patient Care team information Care Team Personnel Name: Lin James NP Position: S Associate Professional Member Role: PCP Address: Address: [address] [facility], [place] [address]- Care Team Related Persons Name: ALLI MARIN Address: [address] [place] [address]
--- NOTE | 2023-04-10 16:29 | ED.WEAKNESS ---
HPI - Weakness General Chief complaint: Weakness Stated complaint: WEAK SINCE T-1,SOB 97% RA Time Seen by Provider: 04/10/23 14:59 History of Present Illness HPI Narrative: Patient is a 68-year-old male with a history of atrial fibrillation. Presents today with generalized malaise weakness. History of Parkinson's currently not on anticoagulation history of congestive heart failure with the last EF being 40%. Presented today with having generalized malaise weakness low-grade fever patient is unsure as to when the symptoms started. Denies any coughing congestion upper respiratory symptoms. Denies any pain on urination. Denies any rash. Is vaccinated for COVID. Patient is from home. Related Data Home Medications Medication Instructions Recorded Confirmed carbidopa 25 mg-levodopa 100 mg 2 tab PO TID@0800,1200,2100 12/23/21 12/26/22 tablet gabapentin 100 mg capsule 100 mg PO DAILY 12/23/21 12/26/22 gabapentin 300 mg capsule 300 mg PO BEDTIME 12/23/21 12/26/22 lisinopril 10 mg tablet 10 mg PO DAILY 12/23/21 12/26/22 melatonin 3 mg tablet 3 mg PO BEDTIME PRN Sleep 12/23/21 12/26/22 ropinirole 0.25 mg tablet 1 tab PO BEDTIME 04/23/22 12/26/22 amlodipine 2.5 mg tablet 1 tab PO TID 09/17/22 12/26/22 Allergies Allergy/AdvReac Type Severity Reaction Status Date / Time No Known Allergies Allergy Verified 03/15/23 18:56 Review of Systems Review of Systems: Positive generalized malaise Positive low-grade fever Yes all other systems are reviewed and are negative [facility] Past Medical History Attestation statement: The following information was validated with the patient. Medical History Atrial fibrillation with rapid ventricular response Cardiomyopathy CHF (congestive heart failure) HTN (hypertension) Parkinson disease Surgical History H/O spinal fusion Family History Family History Mother CAD (coronary artery disease) Social History Social History Household Members: None Housing: House Do you presently have visiting nurse or other home services: Yes Unable to assess alcohol history related to: Unknown Alcohol intake: never Patient Tobacco Use Status: Former Tobacco user Smoked in Last 30 Days: No e-Cigarette/Vaping Use: Never Used Use of substances other than those prescribed or required for medical reasons: No Substance Use Type: Marijuana Advance Directives: Yes Advance Directives on File: Yes Advance Directives Date on File: 12/27/21 service: No Current occupational status: retired Physical Exam Vital Signs: Vital Signs: Last Vital Signs Temp 100.3 F 04/10/23 15:11 Pulse 118 H 04/10/23 15:53 Resp 24 H 04/10/23 15:53 BP 134/100 H 04/10/23 15:53 Pulse Ox 92 04/10/23 15:53 O2 Del Method Room Air 04/10/23 15:53 BMI result Body Mass Index 21.9 Appearance: Alert. Oriented X3. No acute distress. Eyes: Pupils equal, round and reactive to light. ENT: Pharynx normal. Neck: Normal inspection. Neck supple. No lymph nodes noted. No crepitus CVS: Tachycardic irregularly, irregular Respiratory: Diminished breath sounds bilaterally Abdomen: Soft and nontender. No rigidity. No distention. good BS x4 Skin: Skin warm and dry. Normal skin color. Normal skin turgor. Extremities: No lower extremity edema. Neurovascular intact to all extremities. No Lacerations. No Rash Neuro: Oriented X 3. No motor deficit. No sensory deficit. Moving all extermities. No slurred speech Medications Administered Discontinued Medications Generic Name Dose Route Start Last Admin Trade Name Renetta PRN Reason Stop Dose Admin Acetaminophen 975 mg 04/10/23 16:07 04/10/23 16:11 Acetaminophen 325 Mg Tablet PO 04/10/23 16:08 975 mg ONCE ONE Administration Sodium Chloride 1,000 mls @ 999 mls/hr 04/10/23 15:30 04/10/23 16:05 Ns IV 04/10/23 16:30 999 mls/hr .Q1H1M STEPH Administration Metoprolol Tartrate 5 mg 04/10/23 16:00 04/10/23 16:04 Metoprolol Tartrate 5 Mg/5 Ml Vial IVPUSH 04/10/23 16:01 5 mg ONCE ONE Administration Medical Decision Making Medical Decision Making [facility] Narrative: History of AFib, baseline not on blood thinners. History of Parkinson's high risk of fall. Patient was noted to have increasing weakness generalized malaise was noted to have a high heart rate was sent in for further evaluation baseline is on amlodipine on lisinopril not on beta-blockers been compliant in taking her his carbidopa levodopa. Was noted to have a low-grade fever. My interpretation of patient's chest x-ray showed no focal infiltrate, I reviewed the radiologist is reading it was grossly negative. Patient's urine showed no signs of infection. COVID test was negative. Question as to the source of low-grade fever as there is no gross evidence of cellulitis noted. Given Tylenol nevertheless. One dose of metoprolol was given to reduce the heart rate. Will require admission for further evaluation. Patient's lactate was 1.8. There is no evidence for severe sepsis. 6:19- Repeat exam was done no significant changes Patient's BNP was elevated. Question component of congestive heart failure. Differential Diagnosis Differential Diagnoses: The differential diagnosis associated with the presentation includes Atrial fibrillation, Parkinson's, urinary tract infection, COVID, pneumonia, cellulitis, viral illness, general deconditioning Admission/Observation Consideration of admission/observation: Escalation of care including admission/observation considered Consult Healthcare Provider Management of the patient was discussed with: Hospitalist Lab Data [facility] Lab Attestation statement: I reviewed the patient's lab results. 04/10/23 15:37 04/10/23 15:38 Labs: Lab Results 04/10/23 04/10/23 04/10/23 Range/Units 15:37 15:37 15:38 WBC 11.6 H (4.8-10.8) X10*3/uL RBC 4.30 L (4.60-5.80) X10*6/uL Hgb 12.9 L (14.0-18.0) g/dl Hct 41.4 L (42.0-52.0) % MCV 96.3 (80.0-98.0) fL MCH 30.0 (27.0-33.0) pg MCHC 31.2 (31.0-36.0) g/dl RDW 13.2 (11.0-16.0) % Plt Count 439 H D (160-400) X10*3/uL MPV 9.3 L (9.4-12.4) fL Immature Gran % (Auto) 0.4 (0.0-0.4) % Neut % (Auto) 74.2 H (45-73) % Lymph % (Auto) 10.2 L (20-40) % [place] % (Auto) 14.9 H (2-11) % Eos % (Auto) 0.0 (0-4) % Baso % (Auto) 0.3 (0-2) % Lymph # (Auto) 1.2 (1.2-4.9) X10*3/uL [place] # (Auto) 1.7 H (0.1-1.2) X10*3/uL Eos # (Auto) 0.0 (0.0-0.4) X10*3/uL Baso # (Auto) 0.0 (0.0-0.2) X10*3/uL Abs Immat Gran (auto) 0.05 H (0.00-0.03) X10*3/uL Absolute Neuts (auto) 8.6 H (2.0-8.3) x10*3/uL Absolute Nucleated RBC 0.000 (0.0-0.012) X10*3/uL Nucleated RBC % (auto) 0.0 (0.0-0.2) /100WBC Smear Tech's Comments VERIFIED PT 15.6 H (11.1-13.3) SEC INR 1.3 H (0.9-1.1) Sodium (135-145) mmol/L Potassium (3.3-5.1) mmol/L Chloride (96-108) mmol/L Carbon Dioxide (22-29) mmol/L Anion Gap (12-20) BUN (9-16) mg/dL Creatinine (0.5-1.4) mg/dL Estim Creat Clear Calc Estimated GFR Random Glucose (60-115) mg/dL Lactic Acid (0.5-2.0) mmol/L Calcium (8.4-10.2) mg/dL Total Bilirubin (0.0-1.0) mg/dL Direct Bilirubin (0.0-0.5) mg/dL AST (5-37) U/L ALT (0-40) U/L Alkaline Phosphatase (39-117) U/L Troponin I High Sens (<3.5-35.0) ng/L B-Natriuretic Peptide 1157 H (<100) pg/mL Total Protein (6.5-8.0) g/dL Albumin (3.5-5.0) g/dL Lipase (8-78) U/L Urine Color Urine Appearance Urine pH (5.0-9.0) Ur Specific [place] (1.005-1.025) Urine Protein (Neg-Trace) mg/dL Urine Glucose (UA) (Negative) mg/dL Urine Ketones (Negative) mg/dL Urine Blood (Negative) Urine Nitrite (Negative) Ur Leukocyte Esterase (Negative) Urine RBC (0-2) /HPF Urine WBC (0-5) /HPF Ur Squamous Epith Cells (0-2) /HPF Urine Bacteria (None Seen) Hyaline Casts (0-2) /LPF COVID-19 (MIR) (Negative) COVID-19 Clin Com 04/10/23 04/10/23 04/10/23 Range/Units 15:38 15:38 15:38 WBC (4.8-10.8) X10*3/uL RBC (4.60-5.80) X10*6/uL Hgb (14.0-18.0) g/dl Hct (42.0-52.0) % MCV (80.0-98.0) fL MCH (27.0-33.0) pg MCHC (31.0-36.0) g/dl RDW (11.0-16.0) % Plt Count (160-400) X10*3/uL MPV (9.4-12.4) fL Immature Gran % (Auto) (0.0-0.4) % Neut % (Auto) (45-73) % Lymph % (Auto) (20-40) % [place] % (Auto) (2-11) % Eos % (Auto) (0-4) % Baso % (Auto) (0-2) % Lymph # (Auto) (1.2-4.9) X10*3/uL [place] # (Auto) (0.1-1.2) X10*3/uL Eos # (Auto) (0.0-0.4) X10*3/uL Baso # (Auto) (0.0-0.2) X10*3/uL Abs Immat Gran (auto) (0.00-0.03) X10*3/uL Absolute Neuts (auto) (2.0-8.3) x10*3/uL Absolute Nucleated RBC (0.0-0.012) X10*3/uL Nucleated RBC % (auto) (0.0-0.2) /100WBC Smear Tech's Comments PT (11.1-13.3) SEC INR (0.9-1.1) Sodium 147 H (135-145) mmol/L Potassium 4.0 (3.3-5.1) mmol/L Chloride 112 H (96-108) mmol/L Carbon Dioxide 25 (22-29) mmol/L Anion Gap 14 (12-20) BUN 19 H (9-16) mg/dL Creatinine 0.84 (0.5-1.4) mg/dL Estim Creat Clear Calc 83.7 Estimated GFR > 60 Random Glucose 116 H (60-115) mg/dL Lactic Acid 2.0 (0.5-2.0) mmol/L Calcium 9.4 (8.4-10.2) mg/dL Total Bilirubin 0.8 (0.0-1.0) mg/dL Direct Bilirubin (0.0-0.5) mg/dL AST 19 (5-37) U/L ALT 6 (0-40) U/L Alkaline Phosphatase 103 (39-117) U/L Troponin I High Sens 30.9 D (<3.5-35.0) ng/L B-Natriuretic Peptide (<100) pg/mL Total Protein 7.2 (6.5-8.0) g/dL Albumin 3.9 (3.5-5.0) g/dL Lipase (8-78) U/L Urine Color Urine Appearance Urine pH (5.0-9.0) Ur Specific [place] (1.005-1.025) Urine Protein (Neg-Trace) mg/dL Urine Glucose (UA) (Negative) mg/dL Urine Ketones (Negative) mg/dL Urine Blood (Negative) Urine Nitrite (Negative) Ur Leukocyte Esterase (Negative) Urine RBC (0-2) /HPF Urine WBC (0-5) /HPF Ur Squamous Epith Cells (0-2) /HPF Urine Bacteria (None Seen) Hyaline Casts (0-2) /LPF COVID-19 (MIR) (Negative) COVID-19 Clin Com 04/10/23 04/10/23 04/10/23 Range/Units 17:14 17:14 17:14 WBC (4.8-10.8) X10*3/uL RBC (4.60-5.80) X10*6/uL Hgb (14.0-18.0) g/dl Hct (42.0-52.0) % MCV (80.0-98.0) fL MCH (27.0-33.0) pg MCHC (31.0-36.0) g/dl RDW (11.0-16.0) % Plt Count (160-400) X10*3/uL MPV (9.4-12.4) fL Immature Gran % (Auto) (0.0-0.4) % Neut % (Auto) (45-73) % Lymph % (Auto) (20-40) % [place] % (Auto) (2-11) % Eos % (Auto) (0-4) % Baso % (Auto) (0-2) % Lymph # (Auto) (1.2-4.9) X10*3/uL [place] # (Auto) (0.1-1.2) X10*3/uL Eos # (Auto) (0.0-0.4) X10*3/uL Baso # (Auto) (0.0-0.2) X10*3/uL Abs Immat Gran (auto) (0.00-0.03) X10*3/uL Absolute Neuts (auto) (2.0-8.3) x10*3/uL Absolute Nucleated RBC (0.0-0.012) X10*3/uL Nucleated RBC % (auto) (0.0-0.2) /100WBC Smear Tech's Comments PT (11.1-13.3) SEC INR (0.9-1.1) Sodium 147 H (135-145) mmol/L Potassium 3.9 (3.3-5.1) mmol/L Chloride 114 H (96-108) mmol/L Carbon Dioxide 25 (22-29) mmol/L Anion Gap 12 (12-20) BUN 19 H (9-16) mg/dL Creatinine 0.78 (0.5-1.4) mg/dL Estim Creat Clear Calc 90.1 Estimated GFR > 60 Random Glucose 114 (60-115) mg/dL Lactic Acid 1.8 (0.5-2.0) mmol/L Calcium 8.7 D (8.4-10.2) mg/dL Total Bilirubin 0.7 (0.0-1.0) mg/dL Direct Bilirubin 0.3 (0.0-0.5) mg/dL AST 18 (5-37) U/L ALT 5 (0-40) U/L Alkaline Phosphatase 91 (39-117) U/L Troponin I High Sens (<3.5-35.0) ng/L B-Natriuretic Peptide (<100) pg/mL Total Protein 6.3 L (6.5-8.0) g/dL Albumin 3.4 L (3.5-5.0) g/dL Lipase 8 (8-78) U/L Urine Color Urine Appearance Urine pH (5.0-9.0) Ur Specific [place] (1.005-1.025) Urine Protein (Neg-Trace) mg/dL Urine Glucose (UA) (Negative) mg/dL Urine Ketones (Negative) mg/dL Urine Blood (Negative) Urine Nitrite (Negative) Ur Leukocyte Esterase (Negative) Urine RBC (0-2) /HPF Urine WBC (0-5) /HPF Ur Squamous Epith Cells (0-2) /HPF Urine Bacteria (None Seen) Hyaline Casts (0-2) /LPF COVID-19 (MIR) Negative (Negative) COVID-19 Clin Com See Note 04/10/23 Range/Units 17:14 WBC (4.8-10.8) X10*3/uL RBC (4.60-5.80) X10*6/uL Hgb (14.0-18.0) g/dl Hct (42.0-52.0) % MCV (80.0-98.0) fL MCH (27.0-33.0) pg MCHC (31.0-36.0) g/dl RDW (11.0-16.0) % Plt Count (160-400) X10*3/uL MPV (9.4-12.4) fL Immature Gran % (Auto) (0.0-0.4) % Neut % (Auto) (45-73) % Lymph % (Auto) (20-40) % [place] % (Auto) (2-11) % Eos % (Auto) (0-4) % Baso % (Auto) (0-2) % Lymph # (Auto) (1.2-4.9) X10*3/uL [place] # (Auto) (0.1-1.2) X10*3/uL Eos # (Auto) (0.0-0.4) X10*3/uL Baso # (Auto) (0.0-0.2) X10*3/uL Abs Immat Gran (auto) (0.00-0.03) X10*3/uL Absolute Neuts (auto) (2.0-8.3) x10*3/uL Absolute Nucleated RBC (0.0-0.012) X10*3/uL Nucleated RBC % (auto) (0.0-0.2) /100WBC Smear Tech's Comments PT (11.1-13.3) SEC INR (0.9-1.1) Sodium (135-145) mmol/L Potassium (3.3-5.1) mmol/L Chloride (96-108) mmol/L Carbon Dioxide (22-29) mmol/L Anion Gap (12-20) BUN (9-16) mg/dL Creatinine (0.5-1.4) mg/dL Estim Creat Clear Calc Estimated GFR Random Glucose (60-115) mg/dL Lactic Acid (0.5-2.0) mmol/L Calcium (8.4-10.2) mg/dL Total Bilirubin (0.0-1.0) mg/dL Direct Bilirubin (0.0-0.5) mg/dL AST (5-37) U/L ALT (0-40) U/L Alkaline Phosphatase (39-117) U/L Troponin I High Sens (<3.5-35.0) ng/L B-Natriuretic Peptide (<100) pg/mL Total Protein (6.5-8.0) g/dL Albumin (3.5-5.0) g/dL Lipase (8-78) U/L Urine Color Dark Yellow Urine Appearance Clear Urine pH 6.0 (5.0-9.0) Ur Specific [place] >= 1.030 H (1.005-1.025) Urine Protein 30 (1+) H (Neg-Trace) mg/dL Urine Glucose (UA) Negative (Negative) mg/dL Urine Ketones Trace (Negative) mg/dL Urine Blood Negative (Negative) Urine Nitrite Negative (Negative) Ur Leukocyte Esterase Negative (Negative) Urine RBC 0-2 (0-2) /HPF Urine WBC 0-5 (0-5) /HPF Ur Squamous Epith Cells 0-2 (0-2) /HPF Urine Bacteria None Seen (None Seen) Hyaline Casts 0-2 (0-2) /LPF COVID-19 ([facility]IR) (Negative) COVID-19 Clin Com Independent Interpretation I performed an independent interpretation of an: EKG Interpretation: My interpretation of patient's EKG shows an atrial fibrillation pattern. There is no old EKG that shows the atrial fibrillation pattern although patient has a documented history of atrial fibrillation. QRS QTC within normal limits. There is no acute ST segment elevation. My interpretation patient's chest x-ray is grossly negative for pneumonia pneumothorax. Radiology Impression Discussion of test interpretation with radiology: I have reviewed the radiologist's reading. External Record Review External record reviewed: Inpatient record Patient's previous record including cardiology record was reviewed Tests considered The following testing was considered but not selected: CTA for PE considered but felt patient to be low risk. Discharge Plan Discharge Clinical Impression: Atrial fibrillation with RVR, Nonspecific syndrome suggestive of viral illness, CHF (congestive heart failure) Patient Disposition: Admitted As Inpatient
[2023-04-10 17:14] LABS: SLIDE REVIEW VERIFIED
[2023-04-10 17:17] LABS: B Type Natriuretic Peptide 1157 pg/mL (<100)
[2023-04-10 17:26] LABS: Appearance Urine Clear; Color Urine Dark Yellow; Glucose Urine UA Negative (Negative); Leukocyte Esterase Urine Negative (Negative); Nitrite Urine Negative (Negative); Specific Gravity - Urine >= 1.030 (1.005-1.025); UMIC TRIGGER UACC YES; Urine Blood Negative (Negative); Urine Ketones Trace mg/dL (Negative); Urine Protein 30 (1+) mg/dL (Neg-Trace)
[2023-04-10 17:33] LABS: Lactic Acid 1.8 mmol/L (0.5-2.0)
[2023-04-10 17:38] LABS: Alanine Aminotransferase 5 U/L (0-40); Albumin Level 3.4 g/dL (3.5-5.0); Alkaline Phosphatase 91 U/L (39-117); Anion Gap 12 (12-20); Aspartate Amino Transferase 18 U/L (5-37); Bilirubin Direct 0.3 mg/dL (0.0-0.5); Bilirubin Total 0.7 mg/dL (0.0-1.0); Blood Urea Nitrogen 19 mg/dL (9-16); Calcium 8.7 mg/dL (8.4-10.2); Carbon Dioxide 25 mmol/L (22-29); Chloride 114 mmol/L (96-108); Creatinine Clr Calc Pharmacy 90.1; Estimated Glomerular Filt Rate > 60; Glucose Random 114 mg/dL (60-115); Lipase 8 U/L (8-78); Potassium 3.9 mmol/L (3.3-5.1); Sodium 147 mmol/L (135-145); Total Protein 6.3 g/dL (6.5-8.0)
[2023-04-10 17:39] LABS: Bacteria Urine None Seen (None Seen); Hyaline Casts Urine 0-2 /LPF (0-2); RBC Urine 0-2 /HPF (0-2); Squamous Epithelial Cell Urine 0-2 /HPF (0-2); WBC Urine 0-5 /HPF (0-5)
[2023-04-10 17:50] LABS: COVID-19 Test Negative (Negative); IDNOW Serial# BCCEAD1C
--- NOTE | 2023-04-10 18:34 | P.HPHOSP_ITS ---
History of Present Illness Date of Service: 04/10/23 Attending physician on admission: Vanesa Medrano Chief Complaint: malaise 68-year-old male with history of paroxysmal atrial fibrillation on anticoagulation, cardiomyopathy, heart failure with reduced ejection fraction, and Parkinson's disease presented to ED earlier today via EMS for evaluation of generalized malaise and low-grade fevers. He did also sustain a mechanical fall earlier today after tripping on some rocks but no head injury or loss of consciousness. On arrival, slightly elevated temperature of 100.3 degrees found to be in atrial fibrillation with RVR with heart rates varying between 113-124 despite 5 mg IV Lopressor. He has been intermittently tachypneic to 24 but no hypoxia or hypotension. There is a mild leukocytosis of 11.6. Mild normocytic anemia. Renal function baseline. Sodium 147, potassium 3.9, chloride 114. Lactic acid 1.8. Initial troponin 19.3, repeat 30.9. BNP 1157. Urinalysis unremarkable except for elevated specific gravity and 1+ protein. Negative for COVID-19. Chest x-ray negative for any acute cardiopulmonary process. EKG shows atrial fibrillation with RVR, rate 122 with nonspecific T-wave abnormality. In the ED, given 975 mg Tylenol, 5 mg IV Lopressor, and 1 L IV NS. Denies sick contacts. Review of Systems Review of Systems: General: No fevers, malaise, unintentional weight loss. +malaise HEENT: No blurred vision, diplopia. No sore throat, nasal congestion, rhinorrhea, sinus pain, ear pain Cardiovascular: No chest pain, palpitations, or leg edema Respiratory: No shortness of breath, wheezing, cough GI: No abdominal pain, nausea, vomiting, diarrhea, constipation, melena, hematochezia : No dysuria, hematuria, increased urinary frequency, decreased urinary output MSK: No myalgia, back pain Neuro: No headaches, weakness, paresthesias Skin: No rashes or lesions [facility] Medical History Atrial fibrillation with rapid ventricular response Cardiomyopathy CHF (congestive heart failure) HTN (hypertension) Parkinson disease Family History Mother CAD (coronary artery disease) Surgical History H/O spinal fusion Social History Household Members: None Housing: House Do you presently have visiting nurse or other home services: Yes Unable to assess alcohol history related to: Unknown Alcohol intake: never Patient Tobacco Use Status: Former Tobacco user Smoked in Last 30 Days: No e-Cigarette/Vaping Use: Never Used Use of substances other than those prescribed or required for medical reasons: No Substance Use Type: Marijuana Advance Directives: Yes Advance Directives on File: Yes Advance Directives Date on File: 12/27/21 service: No Current occupational status: retired [employer] Allergies Allergy/AdvReac Type Severity Reaction Status Date / Time No Known Allergies Allergy Verified 03/15/23 18:56 Active Medications: Current Medications Cefepime HCl 1 gm/ Sodium (Chloride) 50 mls @ 100 mls/hr IV ONCE ONE Stop: 04/10/23 18:49 Home Medications Medication Instructions Recorded Confirmed Last Taken Type carbidopa 25 mg-levodopa 100 mg 2 tab PO TID@0800,1200,2100 12/23/21 04/10/23 12/26/22 History tablet gabapentin 100 mg capsule 200 mg PO DAILY 12/23/21 04/10/23 12/26/22 History gabapentin 300 mg capsule 300 mg PO BEDTIME 12/23/21 04/10/23 12/25/22 History lisinopril 10 mg tablet 10 mg PO DAILY 12/23/21 04/10/23 12/26/22 History melatonin 3 mg tablet 3 mg PO BEDTIME PRN Sleep 12/23/21 04/10/23 Unknown Hist ory escitalopram oxalate 5 mg tablet 5 mg PO DAILY 04/10/23 04/10/23 Unknown History metoprolol succinate 25 mg 12.5 mg PO DAILY 04/10/23 04/10/23 Unknown History tablet,extended release 24 hr quetiapine 25 mg tablet 25 mg PO BEDTIME 04/10/23 04/10/23 Unknown History Physical Exam Vital Signs and Narrative: Vital Signs: Last Vital Signs Temp 100.3 F 04/10/23 15:11 Pulse 113 H 04/10/23 18:26 Resp 21 H 04/10/23 18:26 BP 117/96 H 04/10/23 18:26 Pulse Ox 93 04/10/23 18:26 O2 Del Method Room Air 04/10/23 18:26 BMI result Body Mass Index 21.9 Constitutional - Awake and Alert, No apparent distress Eyes - PERRLA, EOMI Cardiovascular - S1S2, RRR, No edema Respiratory - Normal lung expansion, Normal respiratory effort, No respiratory distress, faint bibasilar crackles, otherwise cta Gastrointestinal - NT / ND; +BS; No rebound or guarding - No CVA tenderness Extremities - no calf tenderness bilaterally, no swelling Skin - Warm/Dry Neurological - Alert & oriented x3, CN II-XII in tact, 4/5 strength bue and ble Psychological - Appropriate affect Results Labs 04/10/23 15:37 04/10/23 17:14 Labs: Laboratory Results - last 24 hr 04/10/23 04/10/23 04/10/23 15:37 15:37 15:38 MCV 96.3 MCH 30.0 MCHC 31.2 RDW 13.2 Plt Count 439 H D MPV 9.3 L Immature Gran % (Auto) 0.4 Neut % (Auto) 74.2 H Lymph % (Auto) 10.2 L Millard % (Auto) 14.9 H Eos % (Auto) 0.0 Baso % (Auto) 0.3 Lymph # (Auto) 1.2 Millard # (Auto) 1.7 H Eos # (Auto) 0.0 Baso # (Auto) 0.0 Abs Immat Gran (auto) 0.05 H Absolute Neuts (auto) 8.6 H Absolute Nucleated RBC 0.000 Nucleated RBC % (auto) 0.0 Smear Tech's Comments VERIFIED PT 15.6 H INR 1.3 H Anion Gap Estim Creat Clear Calc Estimated GFR Random Glucose Lactic Acid Calcium Total Bilirubin Direct Bilirubin AST ALT Alkaline Phosphatase B-Natriuretic Peptide 1157 H Total Protein Albumin Lipase Urine Color Urine Appearance Urine pH Ur Specific [place] Urine Protein Urine Glucose (UA) Urine Ketones Urine Blood Urine Nitrite Ur Leukocyte Esterase Urine RBC Urine WBC Ur Squamous Epith Cells Urine Bacteria Hyaline Casts COVID-19 (MIR) COVID-19 Clin Com 04/10/23 04/10/23 04/10/23 15:38 15:38 17:14 MCV MCH MCHC RDW Plt Count MPV Immature Gran % (Auto) Neut % (Auto) Lymph % (Auto) Millard % (Auto) Eos % (Auto) Baso % (Auto) Lymph # (Auto) Millard # (Auto) Eos # (Auto) Baso # (Auto) Abs Immat Gran (auto) Absolute Neuts (auto) Absolute Nucleated RBC Nucleated RBC % (auto) Smear Tech's Comments PT INR Anion Gap 14 12 Estim Creat Clear Calc 83.7 90.1 Estimated GFR > 60 > 60 Random Glucose 116 H 114 Lactic Acid 2.0 Calcium 9.4 8.7 D Total Bilirubin 0.8 0.7 Direct Bilirubin 0.3 AST 19 18 ALT 6 5 Alkaline Phosphatase 103 91 B-Natriuretic Peptide Total Protein 7.2 6.3 L Albumin 3.9 3.4 L Lipase 8 Urine Color Urine Appearance Urine pH Ur Specific [place] Urine Protein Urine Glucose (UA) Urine Ketones Urine Blood Urine Nitrite Ur Leukocyte Esterase Urine RBC Urine WBC Ur Squamous Epith Cells Urine Bacteria Hyaline Casts COVID-19 (MIR) COVID-[employer] 04/10/23 04/10/23 04/10/23 17:14 17:14 17:14 MCV MCH MCHC RDW Plt Count MPV Immature Gran % (Auto) Neut % (Auto) Lymph % (Auto) Millard % (Auto) Eos % (Auto) Baso % (Auto) Lymph # (Auto) Millard # (Auto) Eos # (Auto) Baso # (Auto) Abs Immat Gran (auto) Absolute Neuts (auto) Absolute Nucleated RBC Nucleated RBC % (auto) Smear Tech's Comments PT INR Anion Gap Estim Creat Clear Calc Estimated GFR Random Glucose Lactic Acid 1.8 Calcium Total Bilirubin Direct Bilirubin AST ALT Alkaline Phosphatase B-Natriuretic Peptide Total Protein Albumin Lipase Urine Color Dark Yellow Urine Appearance Clear Urine pH 6.0 Ur Specific [place] >= 1.030 H Urine Protein 30 (1+) H Urine Glucose (UA) Negative Urine Ketones Trace Urine Blood Negative Urine Nitrite Negative Ur Leukocyte Esterase Negative Urine RBC 0-2 Urine WBC 0-5 Ur Squamous Epith Cells 0-2 Urine Bacteria None Seen Hyaline Casts 0-2 COVID-19 ([facility]IR) Negative COVID-19 [employer] Com See Note Imaging Radiologist's Impressions: Impressions Chest X-Ray 04/10/23 15:51 IMPRESSION: No acute cardiopulmonary process. Assessment and Plan (1) Atrial fibrillation with RVR: Status: Acute (2) Nonspecific syndrome suggestive of viral illness: Status: Acute Plan 68-year-old male with history of paroxysmal atrial fibrillation on anticoagulation, cardiomyopathy, heart failure with reduced ejection fraction, and Parkinson's disease admitted for atrial fibrillation with RVR. #Paroxysmal atrial fibrillation with RVR -EKG shows AFib with RVR, rate 122, nonspecific ST abnormality -given 5 mg IV Lopressor in the ED. -Give 10mg IV cardizem. If no improvement, consider cardizem drip -Not on anticoagulation due to frequent fall risk due to parkinsons -Echo -Cardiology consult -Cardiac diet -TSH and mag pending -Monitor on telemetry #Low grade fever/malaise -Meeting SIRS criteria, but low suspicion for sepsis. Tachycardia/tachypnea due to afib -Negative COVID-19 -Full viral resp panel pending -UA, CXR negative -No tick bites #HfrEF/cardiomyopathy -BNP elevated, but clinically not in acute exacerbation -CXR negative. No orthopnea, clifford, ble edema -echo ordered as above #Acute dehydration -elevated specific gravity, Cr:BUN elevated, mild hypernatremia -recieved 1L IV NS in ED -Hold on further IVF given CHF history -encourage PO hydration #Elevated troponins -likely demand due to RVR. no chest pain -Initial 19 --> 30. EKG without acute ischemia -repeat troponin @930 -echo ordered #Parkinson's disease -continue sinemet -Per pt's partner, can become transiently disoriented in new environment DVT prophylaxis-Lovenox Full code Patient requires inpatient stay at least 2 midnights for management of atrial fi brillation with RVR requiring IV rate control, echocardiogram, close cardiac monitoring, an expert consultation Time Spent With Patient Time: Total time managing care of this patient today ____ minutes. Quality Stroke Does the patient have a stroke diagnosis?: No VTE Prior VTE?: No VTE Risk Level:: Medical - moderate - high VTE Device Contraindication: Treatment Not Indicated VTE Drug Contraindication: N/A - Med Ordered
[2023-04-10] MEDS: cefEPime HCl 1 GM in 0.9 % Sodium Chloride 50 ML IV (18:57)
[2023-04-10] MEDS: dilTIAZem HCL 50 MG/10 ML VIAL 10 MG IVPUSH (19:02)
[2023-04-10 19:45] LABS: Magnesium 2.3 mg/dL (1.6-2.6)
--- NOTE | 2023-04-10 19:46 | PHA.MEDREC ---
Addendum entered by Deb Arrington RPh 04/10/23 19:54: Spoke with patient's partner Emerita. Patient is not currently taking metoprolol. Emerita also confirmed patient is only take 100 mg of gabapentin in the morning. Emerita also reported patient takes ropinirole at bedtime. YOMAIRA White was updated on new information. Original Note: Pharmacy Consult ? Medication Reconciliation Pharmacy has completed the medication reconciliation. The med list in the patient's room say last reviewed in December and it is a missing medications that have been filled after December; metoprolol, escitalopram, and quetiapine also a different dose of gabapentin based on claim history. I called [facility] for clarification, left information to call back. Celina BURNETTE is aware. Deb Arrington, MercedesD
[2023-04-10 20:06] LABS: TSH reflex Free T4 1.59 uIU/mL (0.32-4.0)
[2023-04-10] MEDS: Enoxaparin Sodium 40 MG/0.4 ML SYRINGE SUBCUT (20:47)
[2023-04-10] MEDS: Carbidopa/Levodopa 25/100 TABLET 2 TAB PO (21:52)
[2023-04-10] MEDS: QUEtiapine Fumarate 25 MG TABLET PO (21:52)
[2023-04-10] MEDS: rOPINIRole HCL 0.25 MG TABLET PO (21:52)
[2023-04-10] MEDS: 0.9 % Sodium Chloride Flush 3 ML SYRINGE IVFLUSH (21:53)
[2023-04-10] MEDS: Gabapentin 300 MG CAPSULE PO (21:53)
[2023-04-10 22:08] LABS: Troponin-I High Sensitivity 24.6 ng/L (<3.5-35.0)
[2023-04-11] VITALS (8 sets, daily range): BP systolic 98–134; BP diastolic 50–101; PULSE 76–119; RESP 17–20; TEMP 36.1–36.6; O2SAT 92–97
--- NOTE | 2023-04-11 03:12 | PC.NURSE ---
pt in AFIB RVR with short runs in the 130-140 range which go back down to 90 bpm. MD made aware and said to give Cardizem push if 140s sustained.
[2023-04-11 06:32] LABS: MANUAL DIFF FLAG NO
[2023-04-11 06:45] LABS: Basophils Percent Auto 0.4 % (0-2); Eosinophils Percent Auto 0.3 % (0-4); Hematocrit 37.6 % (42.0-52.0); Hemoglobin 11.8 g/dl (14.0-18.0); Imm Gran Abs Auto 0.03 X10*3/uL (0.00-0.03); Imm Gran Pct Auto 0.4 % (0.0-0.4); Lymphocytes Absolute Auto 0.9 X10*3/uL (1.2-4.9); Lymphocytes Percent Auto 13.1 % (20-40); Mean Corpuscular HGB Conc 31.4 g/dl (31.0-36.0); Mean Corpuscular Hemoglobin 30.3 pg (27.0-33.0); Mean Corpuscular Volume 96.4 fL (80.0-98.0); Mean Platelet Volume 9.2 fL (9.4-12.4); Monocytes Absolute Auto 0.9 X10*3/uL (0.1-1.2); Monocytes Percent Auto 13.2 % (2-11); Neutrophils Absolute Auto 5.1 x10*3/uL (2.0-8.3); Neutrophils Percent Auto 72.6 % (45-73); Platelet Count 348 X10*3/uL (160-400); Red Cell Distribution Width 13.2 % (11.0-16.0)
[2023-04-11 06:51] LABS: Anion Gap 11 (12-20); Blood Urea Nitrogen 18 mg/dL (9-16); Calcium 8.8 mg/dL (8.4-10.2); Carbon Dioxide 26 mmol/L (22-29); Chloride 114 mmol/L (96-108); Creatinine Clr Calc Pharmacy 97.7; Estimated Glomerular Filt Rate > 60; Glucose Random 90 mg/dL (60-115); Potassium 4.2 mmol/L (3.3-5.1); Sodium 147 mmol/L (135-145)
[2023-04-11 06:57] LABS: B Type Natriuretic Peptide 1493 pg/mL (<100)
--- NOTE | 2023-04-11 07:00 | CA_ITS ---
Transthoracic Echocardiogram Patient (Last, First, Middle): David Julio D Gender: Male Date of : 1955 Age: 68 Procedure Date: 04/11/2023 Procedure Type: Transthoracic [place] [facility] [place]: 180. cm Weight: 77. kg BSA: 1.96 m2 Heart Rate: bpm BP: 133 / 101 mmHg Referring MD: Celina BURNETTE Computer Service Technician: Madi French MD Symptoms: afib rvr Study Quality: Adequate Conclusions: - Normal left ventricular cavity size. There is mildly increased left ventricular wall thickness. The left ventricular systolic function is severely decreased. The visually estimated ejection fraction is between 15-20%. - Mildly increased right ventricular cavity size. There is moderate to severely decreased right ventricular systolic function. - The left atrium is moderately dilated. The right atrium is severely dilated. Findings Left Ventricle Normal left ventricular cavity size. There is mildly increased left ventricular wall thickness. The left ventricular systolic function is severely decreased. The visually estimated ejection fraction is between 15 20%. There is severe global hypokinesis. Diastolic function is indeterminate on the basis of available data. Right Ventricle Mildly increased right ventricular cavity size. There is moderate to severely decreased right ventricular systolic function. Atria The left atrium is moderately dilated. The right atrium is severely dilated. Aortic Valve There is a normal trileaflet aortic valve. There is no aortic valve stenosis. There is no aortic valve regurgitation. Mitral Valve The mitral valve appears normal. There is trace mitral valve regurgitation. There is no mitral valve stenosis. Pulmonic Valve The pulmonic valve is normal. There is no pulmonic valve regurgitation. Tricuspid Valve Normal tricuspid valve structure and function. There is trace tricuspid valve regurgitation. Moderately elevated right atrial pressure. There is no evidence of pulmonary hypertension. Great Vessels All visible segments of the aorta are normal in size. The visualized portions of the pulmonary artery and branches are normal. Venous The inferior vena cava is dilated and collapses less than 50% with inspiration. Pericardium/Pleural There is no evidence of pericardial effusion. Prior Study Comparison Changes noted compared to prior study. Severely reduced LV function. Mod to severe RV dysfunction. Measurements 2D Linear Measurements IVSd: 1.10 0.6-0.9/0.6-1.0 cm LVIDd: 5.20 3.9-5.3/4.2-5.9 cm LVIDd Index: 2.65 2.4-3.2/2.2-3.1 cm/m2 LVIDs: 4.80 2.0-3.6 cm LVPWd: 1.10 0.7-1.1 cm Ao Root: 3.10 2.1-3.5 cm LA Diam: 4.30 2.7-3.8/3.0-4.0 cm LAIDs Index: 2.19 1.5-2.3 cm/m2 LV Mass: 275.20 67-162/88-224 g LV Mass Index: 140.41 43-95/49-115 g/m2 LVOT Diam: 1.80 3.0+(-)1.3 cm 2D Systolic Function EF 4C: 8.53 >55% EF 2C: 14.50 >55% EF BiP: 8.22 >55% Mitral Valve MV Pk E: 0.99 MV Decel Time: 160.00 E'Lateral: 6.25 E'Medial: 4.88 E/E' Med: 20.40 E/E' Lat: 15.90 PHT: 47.00 MVA PHT: 4.68 Decel Scott: 6.22 Aortic Valve AoV Pk Andrew: 0.98 AoV Mn Andrew: 0.74 AoV VTI: 0.16 AoV Pk Grad: 4.00 Aov Mn Grad: 2.00 KIM Cont.VTI: 1.77 LVOT LVOT Pk Andrew: 0.73 LVOT Mn Andrew: 0.50 LVOT VTI: 0.11 LVOT Pk Grad: 2.00 LVOT Mn Grad: 1.00 LVOT Diam: 1.80 LVOT Area: 2.54 Diastolic Function MV Pk E: 0.99 E'Medial: 4.88 E/E' Med: 20.40 E' Laterial: 6.25 E/E' Lat: 15.90 Right Ventricle TAPSE (mm): 11.70 TVS' Andrew: 7.49 Tricuspid Valve TR Pk Andrew: 1.94 TR Pk Grad: 15.00 RA Press: 15.00 RVSP: 30.00 Great Vessels Aorta Ao Root-2D: 3.10 2.0-3.7 cm Sinus of Valsalva: 3.10 2.0-3.5 cm Ao Asc: 3.30 2.1-3.4 cm Pulmonary Valve PV Pk Andrew: 0.57 Peak PV Grad: 1.00 Updated in Other Vendor System with Status of Final Madi French MD electronically signed on 04/13/2023 6:48:05 AM with status of Final
[2023-04-11] MEDS: dilTIAZem HCL 50 MG/10 ML VIAL 10 MG IVPUSH (07:01)
[2023-04-11] MEDS: 0.9 % Sodium Chloride Flush 3 ML SYRINGE IVFLUSH ×3 (07:25→20:25)
[2023-04-11] MEDS: Carbidopa/Levodopa 25/100 TABLET 2 TAB PO ×3 (07:25→20:25)
[2023-04-11] MEDS: lisinopriL 10 MG TABLET PO (07:25)
[2023-04-11] MEDS: Escitalopram Oxalate 5 MG TABLET PO (07:25)
[2023-04-11] MEDS: Gabapentin 100 MG CAPSULE PO (07:25)
[2023-04-11] MEDS: Acetaminophen 325 MG TABLET 650 MG PO (07:29)
[2023-04-11] MEDS: Docusate Sodium 100 MG CAPSULE PO (07:29)
[2023-04-11] MEDS: Metoprolol Tartrate 25 MG TABLET PO ×4 (08:45→20:25)
--- NOTE | 2023-04-11 09:10 | MHC.CM.PN ---
IMM 04/11. Pt admitted with dx A-fib, RVR. Intake assessment completed with pts significant other/HCP due to pt confusion. Pt lives at home with his significant other/HCP Meena Oquendo [phone]. Pt is active with [facility], and has MOW's, uses a wheelchair. D/C plan to return home with resumption of previous services vs STR. Transport via [facility]. Pts s/o Meena stated no preference for STR. HCP and [facility]OLST on file. PCP: Dr. Lachelle Anderson vax: x 3 pfizer
--- NOTE | 2023-04-11 10:44 | P.CONCA_ITS ---
History of Present Illness History of Present Illness Date of Service: 04/11/23 Chief complaint: afib rvr Narrative: [age] year gentleman with chronic atrial fibrillation and cardiomyopathy as well as Parkinson's disease presenting with fall. He was noticed to be in AFib with RVR. He also had low-grade fever. He appears to have advanced Parkinson's disease. It appears he underwent cardiac catheterization at [facility] on April 04 as part of preoperative cardiovascular risk assessment before left shoulder surgery. He did not have any coronary disease and he has nonischemic cardiomyopathy. His heart rates are well controlled at this point. He is denying any symptoms otherwise. [facility] Past Medical History Medical History Atrial fibrillation with rapid ventricular response Cardiomyopathy CHF (congestive heart failure) HTN (hypertension) Parkinson disease Family History Family History Mother CAD (coronary artery disease) Surgical History Surgical History H/O spinal fusion Social History Social History Household Members: Significant Other Housing: House Do you presently have visiting nurse or other home services: Yes Unable to assess alcohol history related to: Unknown Alcohol intake: never Patient Tobacco Use Status: Former Tobacco user Smoked in Last 30 Days: No e-Cigarette/Vaping Use: Never Used Use of substances other than those prescribed or required for medical reasons: No Substance Use Type: Marijuana Currently Displaying Signs/Symptoms of Drug Intoxication Withdrawal: No Any prior treatment program specific to substance use: No Have you been hit, kicked, punched, or otherwise hurt by someone within the past year? If so, by whom?: No Do you feel safe in your current relationship?: Yes Is there a partner from a previous relationship who is making you feel unsafe now?: No Are you made to feel afraid or neglected: No Advance Directives: Yes Advance Directives on File: Yes Advance Directives Date on File: 12/27/21 Do you have thoughts of harming others: None Do you have a plan to hurt others: No Plan Recently lost weight without trying: Yes How much weight loss: 34pounds or more Eating poorly because of decreased appetite: Yes Nutrition screen score: 7 service: No Current occupational status: retired Meds Allergies Allergy/AdvReac Type Severity Reaction Status Date / Time No Known Allergies Allergy Verified 03/15/23 18:56 Active Medications: Current Medications Acetaminophen (Acetaminophen 325 Mg Tablet) 650 mg PO Q6H PRN PRN Reason: Pain, Mild (Pain Scale 1-3) Last Admin: 04/11/23 07:29 Dose: 650 mg Carbidopa/Levodopa (Carbidopa/Levodopa 25/100 Tablet) 2 tab PO TID@0800,1200,2100 [facility] Last Admin: 04/11/23 07:25 Dose: 2 tab Docusate Sodium (Docusate Sodium 100 Mg Capsule) 100 mg PO DAILY PRN PRN Reason: Constipation Last Admin: 04/11/23 07:29 Dose: 100 mg Enoxaparin Sodium (Enoxaparin Sodium 40 Mg/0.4 Ml Syringe) 40 mg SUBCUT Q24H [facility] Last Admin: 04/10/23 20:47 Dose: 40 mg Escitalopram Oxalate (Escitalopram Oxalate 5 Mg Tablet) 5 mg PO DAILY [facility] Last Admin: 04/11/23 07:25 Dose: 5 mg Gabapentin (Gabapentin 100 Mg Capsule) 100 mg PO DAILY [facility] Last Admin: 04/11/23 07:25 Dose: 100 mg Gabapentin (Gabapentin 300 Mg Capsule) 300 mg PO BEDTIME [facility] Last Admin: 04/10/23 21:53 Dose: 300 mg Lisinopril (Lisinopril 10 Mg Tablet) 10 mg PO DAILY [facility]; Protocol Last Admin: 04/11/23 07:25 Dose: 10 mg Melatonin (Melatonin 3 Mg Tablet) 3 mg PO BEDTIME PRN PRN Reason: Sleep Metoprolol Tartrate (Metoprolol Tartrate 25 Mg Tablet) 25 mg PO QID [facility]; Protocol Last Admin: 04/11/23 08:45 Dose: 25 mg Ondansetron HCl (Ondansetron Hcl 4 Mg/2 Ml Vial) 4 mg IVPUSH Q8H PRN PRN Reason: Nausea and Vomiting Quetiapine Fumarate (Quetiapine Fumarate 25 Mg Tablet) 25 mg PO BEDTIME [facility] Last Admin: 04/10/23 21:52 Dose: 25 mg Ropinirole HCl (Ropinirole Hcl 0.25 Mg Tablet) 0.25 mg PO BEDTIME [facility] Last Admin: 04/10/23 21:52 Dose: 0.25 mg Sodium Chloride (0.9 % Sodium Chloride Flush 3 Ml Syringe) 3 ml IVFLUSH QSHIFT [facility] Last Admin: 04/11/23 07:25 Dose: 3 ml Home Medications Medication Instructions Recorded Confirmed Last Taken Type carbidopa 25 mg-levodopa 100 mg 2 tab PO TID@0800,1200,2100 12/23/21 04/10/23 12/26/22 History tablet gabapentin 100 mg capsule 100 mg PO DAILY 12/23/21 04/10/23 12/26/22 History gabapentin 300 mg capsule 300 mg PO BEDTIME 12/23/21 04/10/23 12/25/22 History lisinopril 10 mg tablet 10 mg PO DAILY 12/23/21 04/10/23 12/26/22 History melatonin 3 mg tablet 3 mg PO BEDTIME PRN Sleep 12/23/21 04/10/23 Unknown History escitalopram oxalate 5 mg tablet 5 mg PO DAILY 04/10/23 04/10/23 Unknown History quetiapine 25 mg tablet 25 mg PO BEDTIME 04/10/23 04/10/23 Unknown History ropinirole 0.25 mg tablet 0.25 mg PO BEDTIME 04/10/23 04/10/23 Unknown History Physical Exam Vital Signs: Vital Signs: Last Vital Signs Temp 97.8 F 04/11/23 07:11 Pulse 108 H 04/11/23 07:11 Resp 17 04/11/23 07:11 BP 133/101 H 04/11/23 07:11 Pulse Ox 94 04/11/23 07:11 O2 Del Method Room Air 04/11/23 07:11 BMI result Body Mass Index 21.6 GENERAL APPEARANCE: in no acute distress, frail. Sinus of voice. NECK: no carotid bruit, no jugular venous distention. SKIN: no suspicious lesions, warm and dry. HEART: no murmurs, irregular rate and rhythm. LUNGS: clear to auscultation bilaterally. ABDOMEN: soft, nontender. EXTREMITIES: no edema. PERIPHERAL PULSES: equal. NEUROLOGIC: No gross deficits, AAO X 3 Objective Labs and Meds 04/11/23 06:26 04/11/23 06:26 Lab results: Laboratory Results - last 24 hr 04/10/23 04/10/23 04/10/23 15:37 15:37 15:38 WBC 11.6 H RBC 4.30 L Hgb 12.9 L Hct 41.4 L MCV 96.3 MCH 30.0 MCHC 31.2 RDW 13.2 Plt Count 439 H D MPV 9.3 L Immature Gran % (Auto) 0.4 Neut % (Auto) 74.2 H Lymph % (Auto) 10.2 L [place] % (Auto) 14.9 H Eos % (Auto) 0.0 Baso % (Auto) 0.3 Lymph # (Auto) 1.2 [place] # (Auto) 1.7 H Eos # (Auto) 0.0 Baso # (Auto) 0.0 Abs Immat Gran (auto) 0.05 H Absolute Neuts (auto) 8.6 H Absolute Nucleated RBC 0.000 Nucleated RBC % (auto) 0.0 Smear Tech's Comments VERIFIED PT 15.6 H INR 1.3 H Sodium Potassium Chloride Carbon Dioxide Anion Gap BUN Creatinine Estim Creat Clear Calc Estimated GFR Random Glucose Lactic Acid Calcium Magnesium Total Bilirubin Direct Bilirubin AST ALT Alkaline Phosphatase Troponin I High Sens B-Natriuretic Peptide 1157 H Total Protein Albumin Lipase TSH Urine Color Urine Appearance Urine pH Ur Specific [place] Urine Protein Urine Glucose (UA) Urine Ketones Urine Blood Urine Nitrite Ur Leukocyte Esterase Urine RBC Urine WBC Ur Squamous Epith Cells Urine Bacteria Hyaline Casts COVID-19 ([facility]) COVID-19 Clin Com 04/10/23 04/10/23 04/10/23 15:38 15:38 15:38 WBC RBC Hgb Hct MCV MCH MCHC RDW Plt Count MPV Immature Gran % (Auto) Neut % (Auto) Lymph % (Auto) [place] % (Auto) Eos % (Auto) Baso % (Auto) Lymph # (Auto) [place] # (Auto) Eos # (Auto) Baso # (Auto) Abs Immat Gran (auto) Absolute Neuts (auto) Absolute Nucleated RBC Nucleated RBC % (auto) Smear Tech's Comments PT INR Sodium 147 H Potassium 4.0 Chloride 112 H Carbon Dioxide 25 Anion Gap 14 BUN 19 H Creatinine 0.84 Estim Creat Clear Calc 83.7 Estimated GFR > 60 Random Glucose 116 H Lactic Acid 2.0 Calcium 9.4 Magnesium Total Bilirubin 0.8 Direct Bilirubin AST 19 ALT 6 Alkaline Phosphatase 103 Troponin I High Sens 30.9 D B-Natriuretic Peptide Total Protein 7.2 Albumin 3.9 Lipase TSH Urine Color Urine Appearance Urine pH Ur Specific [place] Urine Protein Urine Glucose (UA) Urine Ketones Urine Blood Urine Nitrite Ur Leukocyte Esterase Urine RBC Urine WBC Ur Squamous Epith Cells Urine Bacteria Hyaline Casts COVID-19 ([facility]) COVID-19 Clin Com 04/10/23 04/10/23 04/10/23 17:14 17:14 17:14 WBC RBC Hgb Hct MCV MCH MCHC RDW Plt Count MPV Immature Gran % (Auto) Neut % (Auto) Lymph % (Auto) [place] % (Auto) Eos % (Auto) Baso % (Auto) Lymph # (Auto) [place] # (Auto) Eos # (Auto) Baso # (Auto) Abs Immat Gran (auto) Absolute Neuts (auto) Absolute Nucleated RBC Nucleated RBC % (auto) Smear Tech's Comments PT INR Sodium 147 H Potassium 3.9 Chloride 114 H Carbon Dioxide 25 Anion Gap 12 BUN 19 H Creatinine 0.78 Estim Creat Clear Calc 90.1 Estimated GFR > 60 Random Glucose 114 Lactic Acid 1.8 Calcium 8.7 D Magnesium 2.3 Total Bilirubin 0.7 Direct Bilirubin 0.3 AST 18 ALT 5 Alkaline Phosphatase 91 Troponin I High Sens B-Natriuretic Peptide Total Protein 6.3 L Albumin 3.4 L Lipase 8 TSH 1.59 Urine Color Urine Appearance Urine pH Ur Specific [place] Urine Protein Urine Glucose (UA) Urine Ketones Urine Blood Urine Nitrite Ur Leukocyte Esterase Urine RBC Urine WBC Ur Squamous Epith Cells Urine Bacteria Hyaline Casts COVID-19 ([facility]) Negative COVID-19 Clin Com See Note 04/10/23 04/10/23 04/11/23 17:14 21:34 06:26 WBC 7.0 RBC 3.90 L Hgb 11.8 L Hct 37.6 L MCV 96.4 MCH 30.3 MCHC 31.4 RDW 13.2 Plt Count 348 MPV 9.2 L Immature Gran % (Auto) 0.4 Neut % (Auto) 72.6 Lymph % (Auto) 13.1 L [place] % (Auto) 13.2 H Eos % (Auto) 0.3 Baso % (Auto) 0.4 Lymph # (Auto) 0.9 L [place] # (Auto) 0.9 Eos # (Auto) 0.0 Baso # (Auto) 0.0 Abs Immat Gran (auto) 0.03 Absolute Neuts (auto) 5.1 Absolute Nucleated RBC 0.000 Nucleated RBC % (auto) 0.0 Smear Tech's Comments PT INR Sodium Potassium Chloride Carbon Dioxide Anion Gap BUN Creatinine Estim Creat Clear Calc Estimated GFR Random Glucose Lactic Acid Calcium Magnesium Total Bilirubin Direct Bilirubin AST ALT Alkaline Phosphatase Troponin I High Sens 24.6 B-Natriuretic Peptide Total Protein Albumin Lipase TSH Urine Color Dark Yellow Urine Appearance Clear Urine pH 6.0 Ur Specific [place] >= 1.030 H Urine Protein 30 (1+) H Urine Glucose (UA) Negative Urine Ketones Trace Urine Blood Negative Urine Nitrite Negative Ur Leukocyte Esterase Negative Urine RBC 0-2 Urine WBC 0-5 Ur Squamous Epith Cells 0-2 Urine Bacteria None Seen Hyaline Casts 0-2 COVID-19 ([facility]) COVID-19 Clin Com 04/11/23 04/11/23 06:26 06:26 WBC RBC Hgb Hct MCV MCH MCHC RDW Plt Count MPV Immature Gran % (Auto) Neut % (Auto) Lymph % (Auto) [place] % (Auto) Eos % (Auto) Baso % (Auto) Lymph # (Auto) [place] # (Auto) Eos # (Auto) Baso # (Auto) Abs Immat Gran (auto) Absolute Neuts (auto) Absolute Nucleated RBC Nucleated RBC % (auto) Smear Tech's Comments PT INR Sodium 147 H Potassium 4.2 Chloride 114 H Carbon Dioxide 26 Anion Gap 11 L BUN 18 H Creatinine 0.71 Estim Creat Clear Calc 97.7 Estimated GFR > 60 Random Glucose 90 Lactic Acid Calcium 8.8 Magnesium Total Bilirubin Direct Bilirubin AST ALT Alkaline Phosphatase Troponin I High Sens B-Natriuretic Peptide 1493 H Total Protein Albumin Lipase TSH Urine Color Urine Appearance Urine pH Ur Specific [place] Urine Protein Urine Glucose (UA) Urine Ketones Urine Blood Urine Nitrite Ur Leukocyte Esterase Urine RBC Urine WBC Ur Squamous Epith Cells Urine Bacteria Hyaline Casts COVID-19 ([facility]) COVID-19 Clin Com Imaging Radiologist's impression: Impressions Chest X-Ray 04/10/23 15:51 IMPRESSION: No acute cardiopulmonary process. Assessment and Plan (1) Cardiomyopathy: Status: Acute (2) Permanent atrial fibrillation: Status: Acute Plan 68 gentleman with permanent atrial fibrillation and cardiomyopathy. He is presenting with fall and AFib with RVR. Heart rate is well controlled right now with p.o. metoprolol. Options are that if he has tachycardia again to try digoxin. He can be loaded with 250 mcg x 2, 6 hours apart. After that he can stay on 125 mcg on Sunday and Sunday. Please do not give him any Cardizem IV or p.o.. Suspect that he is aspirating given advanced Parkinson's disease and sudden tachycardia and low-grade fevers. Thank you for allowing me to participate in the care of your patient. Please feel free to contact me if you have any questions. Time Spent With Patient Time: Total time managing care of this patient today ____ minutes. Procedures Date of Service Date of Service: 04/11/23
[2023-04-11 11:35] LABS: Adenovirus PCR Not Detected (Not Detect.); Bordetella parapertussis PCR Not Detected (Not Detect.); Bordetella pertussis PCR Not Detected (Not Detect.); Chlamydia pneumoniae PCR Not Detected (Not Detect.); Coronavirus 229E PCR Not Detected (Not Detect.); Coronavirus HKU1 PCR Not Detected (Not Detect.); Coronavirus NL63 PCR Not Detected (Not Detect.); Coronavirus OC43 PCR Not Detected (Not Detect.); Human metapneumovirus PCR Not Detected (Not Detect.); Influenza A PCR Not Detected (Not Detect.); Influenza B PCR Not Detected (Not Detect.); Mycoplasma pneumoniae PCR Not Detected (Not Detect.); Parainfluenza 1 PCR Not Detected (Not Detect.); Parainfluenza 2 PCR Not Detected (Not Detect.); Parainfluenza 3 PCR Not Detected (Not Detect.); Parainfluenza 4 PCR Not Detected (Not Detect.); RSV PCR Not Detected (Not Detect.); Rhino/Enterovirus PCR Not Detected (Not Detect.); SARS-CoV-2 PCR Not Detected (Not Detect.)
--- NOTE | 2023-04-11 11:35 | HO.PM.IMPN ---
Subjective Subjective Date of Service: 04/11/23 Interval History: fever Physical Exam Vital Signs: Vital Signs: Last Vital Signs Temp 97.2 F 04/11/23 10:54 Pulse 80 04/11/23 10:54 Resp 18 04/11/23 10:54 BP 115/75 04/11/23 10:54 Pulse Ox 95 04/11/23 10:54 O2 Del Method Room Air 04/11/23 10:54 BMI result Body Mass Index 21.6 alert, minimal verbal, parkinosnia, lying flat comforable, Objective Data Active Medications Acetaminophen (Acetaminophen 325 Mg Tablet) 650 mg PO Q6H PRN PRN Reason: Pain, Mild (Pain Scale 1-3) Last Admin: 04/11/23 07:29 Dose: 650 mg Documented By: MARGRET Carbidopa/Levodopa (Carbidopa/Levodopa 25/100 Tablet) 2 tab PO TID@0800,1200,2100 [facility] Last Admin: 04/11/23 07:25 Dose: 2 tab Documented By: MARGRET Docusate Sodium (Docusate Sodium 100 Mg Capsule) 100 mg PO DAILY PRN PRN Reason: Constipation Last Admin: 04/11/23 07:29 Dose: 100 mg Documented By: MARGRET Enoxaparin Sodium (Enoxaparin Sodium 40 Mg/0.4 Ml Syringe) 40 mg SUBCUT Q24H [facility] Last Admin: 04/10/23 20:47 Dose: 40 mg Documented By: LAURENT Escitalopram Oxalate (Escitalopram Oxalate 5 Mg Tablet) 5 mg PO DAILY [facility] Last Admin: 04/11/23 07:25 Dose: 5 mg Documented By: MARGRET Gabapentin (Gabapentin 100 Mg Capsule) 100 mg PO DAILY [facility] Last Admin: 04/11/23 07:25 Dose: 100 mg Documented By: MARGRET Gabapentin (Gabapentin 300 Mg Capsule) 300 mg PO BEDTIME [facility] Last Admin: 04/10/23 21:53 Dose: 300 mg Documented By: JORGE Lisinopril (Lisinopril 10 Mg Tablet) 10 mg PO DAILY [facility]; Protocol Last Admin: 04/11/23 07:25 Dose: 10 mg Documented By: MARGRET Melatonin (Melatonin 3 Mg Tablet) 3 mg PO BEDTIME PRN PRN Reason: Sleep Metoprolol Tartrate (Metoprolol Tartrate 25 Mg Tablet) 25 mg PO QID [facility]; Protocol Last Admin: 04/11/23 08:45 Dose: 25 mg Documented By: MARGRET Ondansetron HCl (Ondansetron Hcl 4 Mg/2 Ml Vial) 4 mg IVPUSH Q8H PRN PRN Reason: Nausea and Vomiting Quetiapine Fumarate (Quetiapine Fumarate 25 Mg Tablet) 25 mg PO BEDTIME [facility] Last Admin: 04/10/23 21:52 Dose: 25 mg Documented By: JORGE Ropinirole HCl (Ropinirole Hcl 0.25 Mg Tablet) 0.25 mg PO BEDTIME [facility] Last Admin: 04/10/23 21:52 Dose: 0.25 mg Documented By: JORGE Sodium Chloride (0.9 % Sodium Chloride Flush 3 Ml Syringe) 3 ml IVFLUSH QSHIFT [facility] Last Admin: 04/11/23 07:25 Dose: 3 ml Documented By: MARGRET Labs 04/11/23 06:26 04/11/23 06:26 Labs: Laboratory Results - last 24 hr 04/10/23 04/10/23 04/10/23 15:37 15:37 15:38 MCV 96.3 MCH 30.0 MCHC 31.2 RDW 13.2 Plt Count 439 H D MPV 9.3 L Immature Gran % (Auto) 0.4 Neut % (Auto) 74.2 H Lymph % (Auto) 10.2 L [place] % (Auto) 14.9 H Eos % (Auto) 0.0 Baso % (Auto) 0.3 Lymph # (Auto) 1.2 [place] # (Auto) 1.7 H Eos # (Auto) 0.0 Baso # (Auto) 0.0 Abs Immat Gran (auto) 0.05 H Absolute Neuts (auto) 8.6 H Absolute Nucleated RBC 0.000 Nucleated RBC % (auto) 0.0 Smear Tech's Comments VERIFIED PT 15.6 H INR 1.3 H Anion Gap Estim Creat Clear Calc Estimated GFR Random Glucose Lactic Acid Calcium Magnesium Total Bilirubin Direct Bilirubin AST ALT Alkaline Phosphatase B-Natriuretic Peptide 1157 H Total Protein Albumin Lipase TSH Urine Color Urine Appearance Urine pH Ur Specific [place] Urine Protein Urine Glucose (UA) Urine Ketones Urine Blood Urine Nitrite Ur Leukocyte Esterase Urine RBC Urine WBC Ur Squamous Epith Cells Urine Bacteria Hyaline Casts COVID-19 ([facility]) COVID-19 Clin Com 08/29/23 08/29/23 08/29/23 15:38 15:38 17:14 MCV MCH MCHC RDW Plt Count MPV Immature Gran % (Auto) Neut % (Auto) Lymph % (Auto) [place] % (Auto) Eos % (Auto) Baso % (Auto) Lymph # (Auto) [place] # (Auto) Eos # (Auto) Baso # (Auto) Abs Immat Gran (auto) Absolute Neuts (auto) Absolute Nucleated RBC Nucleated RBC % (auto) Smear Tech's Comments PT INR Anion Gap 14 12 Estim Creat Clear Calc 83.7 90.1 Estimated GFR > 60 > 60 Random Glucose 116 H 114 Lactic Acid 2.0 Calcium 9.4 8.7 D Magnesium 2.3 Total Bilirubin 0.8 0.7 Direct Bilirubin 0.3 AST 19 18 ALT 6 5 Alkaline Phosphatase 103 91 B-Natriuretic Peptide Total Protein 7.2 6.3 L Albumin 3.9 3.4 L Lipase 8 TSH 1.59 Urine Color Urine Appearance Urine pH Ur Specific [place] Urine Protein Urine Glucose (UA) Urine Ketones Urine Blood Urine Nitrite Ur Leukocyte Esterase Urine RBC Urine WBC Ur Squamous Epith Cells Urine Bacteria Hyaline Casts COVID-19 ([facility]) COVID-19 [employer] Com 04/10/23 04/10/23 04/10/23 17:14 17:14 17:14 MCV MCH MCHC RDW Plt Count MPV Immature Gran % (Auto) Neut % (Auto) Lymph % (Auto) [place] % (Auto) Eos % (Auto) Baso % (Auto) Lymph # (Auto) [place] # (Auto) Eos # (Auto) Baso # (Auto) Abs Immat Gran (auto) Absolute Neuts (auto) Absolute Nucleated RBC Nucleated RBC % (auto) Smear Tech's Comments PT INR Anion Gap Estim Creat Clear Calc Estimated GFR Random Glucose Lactic Acid 1.8 Calcium Magnesium Total Bilirubin Direct Bilirubin AST ALT Alkaline Phosphatase B-Natriuretic Peptide Total Protein Albumin Lipase TSH Urine Color Dark Yellow Urine Appearance Clear Urine pH 6.0 Ur Specific [place] >= 1.030 H Urine Protein 30 (1+) H Urine Glucose (UA) Negative Urine Ketones Trace Urine Blood Negative Urine Nitrite Negative Ur Leukocyte Esterase Negative Urine RBC 0-2 Urine WBC 0-5 Ur Squamous Epith Cells 0-2 Urine Bacteria None Seen Hyaline Casts 0-2 COVID-19 ([facility]) Negative COVID-19 Clin Com See Note 04/11/23 04/11/23 04/11/23 06:26 06:26 06:26 MCV 96.4 MCH 30.3 MCHC 31.4 RDW 13.2 Plt Count 348 MPV 9.2 L Immature Gran % (Auto) 0.4 Neut % (Auto) 72.6 Lymph % (Auto) 13.1 L [place] % (Auto) 13.2 H Eos % (Auto) 0.3 Baso % (Auto) 0.4 Lymph # (Auto) 0.9 L [place] # (Auto) 0.9 Eos # (Auto) 0.0 Baso # (Auto) 0.0 Abs Immat Gran (auto) 0.03 Absolute Neuts (auto) 5.1 Absolute Nucleated RBC 0.000 Nucleated RBC % (auto) 0.0 Smear Tech's Comments PT INR Anion Gap 11 L Estim Creat Clear Calc 97.7 Estimated GFR > 60 Random Glucose 90 Lactic Acid Calcium 8.8 Magnesium Total Bilirubin Direct Bilirubin AST ALT Alkaline Phosphatase B-Natriuretic Peptide 1493 H Total Protein Albumin Lipase TSH Urine Color Urine Appearance Urine pH Ur Specific [place] Urine Protein Urine Glucose (UA) Urine Ketones Urine Blood Urine Nitrite Ur Leukocyte Esterase Urine RBC Urine WBC Ur Squamous Epith Cells Urine Bacteria Hyaline Casts COVID-19 ([facility]) COVID-19 Clin Com Assessment and Plan (1) Atrial fibrillation with RVR: Status: Acute Plan 68M PMH paroxysmal atrial fibrillation, chronic systolic CHF, Parkinson's presented with low-grade fever, rapid AFib sirs Question viral illness Symptomatic management Hold off on antibiotics for now Paroxysmal atrial fibrillation with rapid ventricular response P.o. Lopressor, cardio eval, not on anticoagulation due to frequent fall Echo Chronic systolic CHF Does not appear to be volume overloaded at this time Parkinson's Sinemet DVT prophylaxis with Lovenox Full code reason for continued hospitalization:rate control Time Spent With Patient Time: Total time managing care of this patient today ____ minutes. Quality Stroke Does the patient have a stroke diagnosis?: No VTE Prior VTE?: No VTE Risk Level:: Medical - moderate - high VTE Device Contraindication: Treatment Not Indicated VTE Drug Contraindication: N/A - Med Ordered
[2023-04-11] MEDS: QUEtiapine Fumarate 25 MG TABLET PO ×2 (14:39→20:25)
[2023-04-11] MEDS: Gabapentin 300 MG CAPSULE PO (20:24)
[2023-04-11] MEDS: Enoxaparin Sodium 40 MG/0.4 ML SYRINGE SUBCUT (20:24)
[2023-04-11] MEDS: rOPINIRole HCL 0.25 MG TABLET PO (20:25)
[2023-04-11] MEDS: Melatonin 3 MG TABLET PO (20:25)
[2023-04-12 03:45] VITALS: BP 129/84; PULSE 89; RESP 18; TEMP 36.6; O2SAT 94
[2023-04-12 06:45] LABS: Hematocrit 35.4 % (42.0-52.0); Hemoglobin 11.4 g/dl (14.0-18.0); Mean Corpuscular HGB Conc 32.2 g/dl (31.0-36.0); Mean Corpuscular Hemoglobin 30.6 pg (27.0-33.0); Mean Corpuscular Volume 94.9 fL (80.0-98.0); Mean Platelet Volume 9.3 fL (9.4-12.4); Platelet Count 318 X10*3/uL (160-400); Red Blood Count 3.73 X10*6/uL (4.60-5.80); White Blood Count 6.2 X10*3/uL (4.8-10.8)
[2023-04-12 06:59] LABS: Anion Gap 12 (12-20); Blood Urea Nitrogen 19 mg/dL (9-16); Calcium 8.5 mg/dL (8.4-10.2); Carbon Dioxide 24 mmol/L (22-29); Chloride 112 mmol/L (96-108); Creatinine Clr Calc Pharmacy 103.6; Estimated Glomerular Filt Rate > 60; Glucose Fasting 82 mg/dL (60-99); Potassium 3.7 mmol/L (3.3-5.1); Sodium 144 mmol/L (135-145)
[2023-04-12 07:41] VITALS: BP 128/78; PULSE 66; RESP 18; TEMP 36.7; O2SAT 91
[2023-04-12] MEDS: Escitalopram Oxalate 5 MG TABLET PO (08:05)
[2023-04-12] MEDS: 0.9 % Sodium Chloride Flush 3 ML SYRINGE IVFLUSH ×3 (08:06→19:52)
[2023-04-12] MEDS: Metoprolol Tartrate 50 MG TABLET PO ×2 (08:06→19:51)
[2023-04-12] MEDS: Gabapentin 100 MG CAPSULE PO (08:06)
[2023-04-12] MEDS: lisinopriL 10 MG TABLET PO (08:06)
[2023-04-12] MEDS: Carbidopa/Levodopa 25/100 TABLET 2 TAB PO ×3 (08:06→19:52)
--- NOTE | 2023-04-12 09:17 | HO.PM.IMPN ---
Subjective Subjective Date of Service: 04/12/23 Interval History: agitated Physical Exam Vital Signs: Vital Signs: Last Vital Signs Temp 98.1 F 04/12/23 07:41 Pulse 66 04/12/23 07:41 Resp 18 04/12/23 07:41 BP 128/78 04/12/23 07:41 Pulse Ox 91 L 04/12/23 07:41 O2 Del Method Room Air 04/12/23 07:41 BMI result Body Mass Index 21.6 alert, minimal verbal, parkinosnia, lying flat comforable, Objective Data Active Medications Acetaminophen (Acetaminophen 325 Mg Tablet) 650 mg PO Q6H PRN PRN Reason: Pain, Mild (Pain Scale 1-3) Last Admin: 04/11/23 07:29 Dose: 650 mg Documented By: MARGRET Carbidopa/Levodopa (Carbidopa/Levodopa 25/100 Tablet) 2 tab PO TID@0800,1200,2100 [facility] Last Admin: 04/12/23 08:06 Dose: 2 tab Documented By: MARGRET Docusate Sodium (Docusate Sodium 100 Mg Capsule) 100 mg PO DAILY PRN PRN Reason: Constipation Last Admin: 04/11/23 07:29 Dose: 100 mg Documented By: MARGRET Enoxaparin Sodium (Enoxaparin Sodium 40 Mg/0.4 Ml Syringe) 40 mg SUBCUT Q24H [facility] Last Admin: 04/11/23 20:24 Dose: 40 mg Documented By: LIU Escitalopram Oxalate (Escitalopram Oxalate 5 Mg Tablet) 5 mg PO DAILY [facility] Last Admin: 04/12/23 08:05 Dose: 5 mg Documented By: MARGRET Gabapentin (Gabapentin 100 Mg Capsule) 100 mg PO DAILY [facility] Last Admin: 04/12/23 08:06 Dose: 100 mg Documented By: MARGRET Gabapentin (Gabapentin 300 Mg Capsule) 300 mg PO BEDTIME [facility] Last Admin: 04/11/23 20:24 Dose: 300 mg Documented By: LIU Lisinopril (Lisinopril 10 Mg Tablet) 10 mg PO DAILY [facility]; Protocol Last Admin: 04/12/23 08:06 Dose: 10 mg Documented By: MARGRET Melatonin (Melatonin 3 Mg Tablet) 3 mg PO BEDTIME PRN PRN Reason: Sleep Last Admin: 08/30/23 20:25 Dose: 3 mg Documented By: LIU Metoprolol Tartrate (Metoprolol Tartrate 50 Mg Tablet) 50 mg PO BID [facility]; Protocol Last Admin: 04/12/23 08:06 Dose: 50 mg Documented By: MARGRET Ondansetron HCl (Ondansetron Hcl 4 Mg/2 Ml Vial) 4 mg IVPUSH Q8H PRN PRN Reason: Nausea and Vomiting Quetiapine Fumarate (Quetiapine Fumarate 25 Mg Tablet) 25 mg PO BEDTIME [facility] Last Admin: 04/11/23 20:25 Dose: 25 mg Documented By: LIU Ropinirole HCl (Ropinirole Hcl 0.25 Mg Tablet) 0.25 mg PO BEDTIME [facility] Last Admin: 04/11/23 20:25 Dose: 0.25 mg Documented By: LIU Sodium Chloride (0.9 % Sodium Chloride Flush 3 Ml Syringe) 3 ml IVFLUSH QSHIFT [facility] Last Admin: 04/12/23 08:06 Dose: 3 ml Documented By: MARGRET Labs 04/12/23 05:55 04/12/23 05:55 Labs: Laboratory Results - last 24 hr 04/10/23 04/12/23 04/12/23 19:36 05:55 05:55 MCV 94.9 MCH 30.6 MCHC 32.2 RDW 13.0 Plt Count 318 MPV 9.3 L Absolute Nucleated RBC 0.000 Nucleated RBC % (auto) 0.0 Anion Gap 12 Estim Creat Clear Calc 103.6 Estimated GFR > 60 Fasting Glucose 82 Calcium 8.5 Respiratory Panel Daley See Note Adenovirus (Rapid PCR) Not Detected B.pert (TEM-PCR) Not Detected B.parapertussis DNA PCR Not Detected C. pneumoniae DNA (PCR) Not Detected Coronavirus OC43 (PCR) Not Detected Coronavirus HKU1 (PCR) Not Detected Coronavirus 229E (PCR) Not Detected Coronavirus NL63 (PCR) Not Detected Human Metapneumovir PCR Not Detected Influenza A (RT-PCR) Not Detected Influenza B (RT-PCR) Not Detected M. pneumoniae (PCR) Not Detected Parainfluenza 1 (PCR) Not Detected Parainfluenza 2 (PCR) Not Detected Parainfluenza 3 (PCR) Not Detected Parainfluenza 4 (PCR) Not Detected RSV (PCR) Not Detected Entero/Rhino (PCR) Not Detected SARS-CoV-2 RNA (RT-PCR) Not Detected Microbiology Microbiology Results: Microbiology 04/10/23 15:39 Blood Culture - Preliminary Blood - Venous Prelim: GPC Gram Stain only 04/10/23 15:38 Blood Culture - Preliminary Blood - Venous No growth after 24 hours. Assessment and Plan (1) Atrial fibrillation with RVR: Status: Acute Plan 68M PMH paroxysmal atrial fibrillation, chronic systolic CHF, Parkinson's presented with low-grade fever, rapid AFib sirs Question viral illness Symptomatic management Hold off on antibiotics for now 1/2 gpc in blood culture -awaiting species Paroxysmal atrial fibrillation with rapid ventricular response P.o. Lopressor - 50mg bid, cardio appreciated, avoid diltiazem, not on anticoagulation due to frequent fall Echo Chronic systolic CHF Does not appear to be volume overloaded at this time Parkinson's Sinemet DVT prophylaxis with Lovenox Full code reason for continued hospitalization:rate control, await cultures Time Spent With Patient Time: Total time managing care of this patient today ____ minutes. Quality Stroke Does the patient have a stroke diagnosis?: No VTE Prior VTE?: No VTE Risk Level:: Medical - moderate - high VTE Device Contraindication: Treatment Not Indicated VTE Drug Contraindication: N/A - Med Ordered
[2023-04-12 11:11] VITALS: BP 122/80; PULSE 94; RESP 20; TEMP 36.1; O2SAT 97
[2023-04-12 14:57] VITALS: BP 126/87; PULSE 69; RESP 20; TEMP 36.1; O2SAT 94
[2023-04-12] MEDS: Acetaminophen 325 MG TABLET 650 MG PO (14:57)
[2023-04-12 19:11] VITALS: BP 138/91; PULSE 98; RESP 20; TEMP 36.2; O2SAT 94
[2023-04-12] MEDS: QUEtiapine Fumarate 25 MG TABLET PO (19:51)
[2023-04-12] MEDS: Enoxaparin Sodium 40 MG/0.4 ML SYRINGE SUBCUT (19:51)
[2023-04-12] MEDS: Gabapentin 300 MG CAPSULE PO (19:51)
[2023-04-12] MEDS: rOPINIRole HCL 0.25 MG TABLET PO (19:52)
[2023-04-12] MEDS: Melatonin 3 MG TABLET PO (19:52)
[2023-04-13] VITALS (7 sets, daily range): BP systolic 121–145; BP diastolic 82–97; PULSE 70–102; RESP 18–20; TEMP 36.2–37.1; O2SAT 90–95
[2023-04-13 06:52] LABS: Hematocrit 36.6 % (42.0-52.0); Hemoglobin 11.7 g/dl (14.0-18.0); Mean Corpuscular Hemoglobin 29.8 pg (27.0-33.0); Mean Corpuscular Volume 93.1 fL (80.0-98.0); Mean Platelet Volume 9.2 fL (9.4-12.4); Platelet Count 345 X10*3/uL (160-400); Red Blood Count 3.93 X10*6/uL (4.60-5.80); Red Cell Distribution Width 12.8 % (11.0-16.0); White Blood Count 5.3 X10*3/uL (4.8-10.8)
[2023-04-13 07:06] LABS: Anion Gap 13 (12-20); Blood Urea Nitrogen 18 mg/dL (9-16); Calcium 8.5 mg/dL (8.4-10.2); Carbon Dioxide 21 mmol/L (22-29); Chloride 112 mmol/L (96-108); Creatinine Clr Calc Pharmacy 108.4; Estimated Glomerular Filt Rate > 60; Glucose Fasting 87 mg/dL (60-99); Potassium 3.7 mmol/L (3.3-5.1); Sodium 142 mmol/L (135-145)
[2023-04-13] MEDS: Escitalopram Oxalate 5 MG TABLET PO (07:59)
[2023-04-13] MEDS: Gabapentin 100 MG CAPSULE PO (07:59)
[2023-04-13] MEDS: Carbidopa/Levodopa 25/100 TABLET 2 TAB PO ×3 (07:59→19:58)
[2023-04-13] MEDS: Acetaminophen 325 MG TABLET 650 MG PO ×2 (07:59→19:59)
[2023-04-13] MEDS: lisinopriL 10 MG TABLET PO (08:00)
[2023-04-13] MEDS: Metoprolol Tartrate 50 MG TABLET PO ×2 (08:00→19:58)
[2023-04-13] MEDS: 0.9 % Sodium Chloride Flush 3 ML SYRINGE IVFLUSH ×3 (08:02→20:14)
--- NOTE | 2023-04-13 08:48 | HO.PM.IMPN ---
Subjective Subjective Date of Service: 04/13/23 Interval History: no complaints Physical Exam Vital Signs: Vital Signs: Last Vital Signs Temp 97.9 F 04/13/23 07:11 Pulse 102 H 04/13/23 07:11 Resp 20 04/13/23 07:11 BP 145/97 H 04/13/23 07:11 Pulse Ox 92 04/13/23 07:11 O2 Del Method Room Air 04/13/23 07:11 BMI result Body Mass Index 21.6 alert, minimally verbal, bradykinetic, lungs clear Objective Data Active Medications Acetaminophen (Acetaminophen 325 Mg Tablet) 650 mg PO Q6H PRN PRN Reason: Pain, Mild (Pain Scale 1-3) Last Admin: 04/13/23 07:59 Dose: 650 mg Documented By: ALEX Carbidopa/Levodopa (Carbidopa/Levodopa 25/100 Tablet) 2 tab PO TID@0800,1200,2100 [facility] Last Admin: 04/13/23 07:59 Dose: 2 tab Documented By: ALEX Docusate Sodium (Docusate Sodium 100 Mg Capsule) 100 mg PO DAILY PRN PRN Reason: Constipation Last Admin: 04/11/23 07:29 Dose: 100 mg Documented By: MARGRET Enoxaparin Sodium (Enoxaparin Sodium 40 Mg/0.4 Ml Syringe) 40 mg SUBCUT Q24H [facility] Last Admin: 04/12/23 19:51 Dose: 40 mg Documented By: LIU Escitalopram Oxalate (Escitalopram Oxalate 5 Mg Tablet) 5 mg PO DAILY [facility] Last Admin: 04/13/23 07:59 Dose: 5 mg Documented By: ALEX Gabapentin (Gabapentin 100 Mg Capsule) 100 mg PO DAILY [facility] Last Admin: 04/13/23 07:59 Dose: 100 mg Documented By: ALEX Gabapentin (Gabapentin 300 Mg Capsule) 300 mg PO BEDTIME [facility] Last Admin: 04/12/23 19:51 Dose: 300 mg Documented By: LIU Lisinopril (Lisinopril 10 Mg Tablet) 10 mg PO DAILY [facility]; Protocol Last Admin: 04/13/23 08:00 Dose: 10 mg Documented By: ALEX Melatonin (Melatonin 3 Mg Tablet) 3 mg PO BEDTIME PRN PRN Reason: Sleep Last Admin: 04/12/23 19:52 Dose: 3 mg Documented By: LIU Metoprolol Tartrate (Metoprolol Tartrate 50 Mg Tablet) 50 mg PO BID [facility]; Protocol Last Admin: 04/13/23 08:00 Dose: 50 mg Documented By: ALEX Ondansetron HCl (Ondansetron Hcl 4 Mg/2 Ml Vial) 4 mg IVPUSH Q8H PRN PRN Reason: Nausea and Vomiting Quetiapine Fumarate (Quetiapine Fumarate 25 Mg Tablet) 25 mg PO BEDTIME [facility] Last Admin: 04/12/23 19:51 Dose: 25 mg Documented By: LIU Ropinirole HCl (Ropinirole Hcl 0.25 Mg Tablet) 0.25 mg PO BEDTIME [facility] Last Admin: 04/12/23 19:52 Dose: 0.25 mg Documented By: LIU Sodium Chloride (0.9 % Sodium Chloride Flush 3 Ml Syringe) 3 ml IVFLUSH QSHIFT [facility] Last Admin: 04/13/23 08:02 Dose: 3 ml Documented By: ALEX Labs 04/13/23 06:33 04/13/23 06:33 Labs: Laboratory Results - last 24 hr 04/13/23 04/13/23 06:33 06:33 MCV 93.1 MCH 29.8 MCHC 32.0 RDW 12.8 Plt Count 345 MPV 9.2 L Absolute Nucleated RBC 0.000 Nucleated RBC % (auto) 0.0 Anion Gap 13 Estim Creat Clear Calc 108.4 Estimated GFR > 60 Fasting Glucose 87 Calcium 8.5 Microbiology Microbiology Results: Microbiology 04/10/23 15:38 Blood Culture - Preliminary Blood - Venous No growth after 48 hours. 04/10/23 15:39 Blood Culture - Final Blood - Venous Coag negative Staphylococcus Assessment and Plan (1) Atrial fibrillation with RVR: Status: Acute Plan 68M PMH paroxysmal atrial fibrillation, chronic systolic CHF, Parkinson's presented with low-grade fever, rapid AFib sirs Question viral illness Symptomatic management Hold off on antibiotics for now appears resolved coag neg staph in 1/2 likely contaminant, no further treatement/workup Paroxysmal atrial fibrillation with rapid ventricular response P.o. Lopressor - 50mg bid, cardio appreciated, avoid diltiazem, not on anticoagulation due to frequent fall Chronic systolic CHF Does not appear to be volume overloaded at this time Parkinson's Sinemet DVT prophylaxis with Lovenox Full code reason for continued hospitalization:rate control, safe dispo Time Spent With Patient Time: Total time managing care of this patient today ____ minutes. Quality Stroke Does the patient have a stroke diagnosis?: No VTE Prior VTE?: No VTE Risk Level:: Medical - moderate - high VTE Device Contraindication: Treatment Not Indicated VTE Drug Contraindication: N/A - Med Ordered
[2023-04-13] MEDS: Empagliflozin 10 MG TABLET PO (09:39)
[2023-04-13] MEDS: Digoxin 0.5 MG/2 ML AMPUL 0.25 MG IVPUSH ×2 (11:06→16:46)
--- NOTE | 2023-04-13 12:18 | MHC.CM.PN ---
EMR reviewed and per MD rounds, pt is not medically cleared for D/C today due to continued need to monitor and control HR. CM will continue to follow.
--- NOTE | 2023-04-13 14:27 | PC.NURSE ---
Patient is A&OX2-3 with choices stumbles on words at times. c/o headache in am 2/ Tylenol given with good effect. LSCTA occasional SOB per pt, Afib on tele initially 100-140, IV digoxin given at 1100 with good effect HR down 70-90's. OOB to chair in am with assist constant nutritional health coach at bedside for safety. Fluids encouraged good oral intake assist with meals. Voiding well in urinal although also incontinent. HCP notified of plan of care. Will continue to monitor and report changes
[2023-04-13] MEDS: Enoxaparin Sodium 40 MG/0.4 ML SYRINGE SUBCUT (19:58)
[2023-04-13] MEDS: Gabapentin 300 MG CAPSULE PO (19:59)
[2023-04-13] MEDS: QUEtiapine Fumarate 25 MG TABLET PO (19:59)
[2023-04-13] MEDS: rOPINIRole HCL 0.25 MG TABLET PO (19:59)
[2023-04-14 04:00] VITALS: BP 167/87; PULSE 78; RESP 18; TEMP 36.7; O2SAT 94
[2023-04-14 07:28] VITALS: BP 162/82; PULSE 71; RESP 20; TEMP 36.6; O2SAT 95
[2023-04-14] MEDS: Metoprolol Tartrate 50 MG TABLET PO (08:01)
[2023-04-14] MEDS: lisinopriL 10 MG TABLET PO (08:01)
[2023-04-14] MEDS: Carbidopa/Levodopa 25/100 TABLET 2 TAB PO ×3 (08:01→20:36)
[2023-04-14] MEDS: Escitalopram Oxalate 5 MG TABLET PO (08:01)
[2023-04-14] MEDS: Gabapentin 100 MG CAPSULE PO (08:02)
[2023-04-14] MEDS: Empagliflozin 10 MG TABLET PO (08:02)
[2023-04-14] MEDS: 0.9 % Sodium Chloride Flush 3 ML SYRINGE IVFLUSH ×3 (08:02→20:38)
--- NOTE | 2023-04-14 09:06 | HO.PM.IMPN ---
Subjective Subjective Date of Service: 04/14/23 Interval History: no complaints Physical Exam Vital Signs: Vital Signs: Last Vital Signs Temp 97.8 F 04/14/23 07:28 Pulse 71 04/14/23 07:28 Resp 20 04/14/23 07:28 BP 162/82 H 04/14/23 07:28 Pulse Ox 95 04/14/23 07:28 O2 Del Method Room Air 04/14/23 07:28 BMI result Body Mass Index 21.6 alert, minimally verbal, bradykinetic, lungs clear Objective Data Active Medications Acetaminophen (Acetaminophen 325 Mg Tablet) 650 mg PO Q6H PRN PRN Reason: Pain, Mild (Pain Scale 1-3) Last Admin: 04/13/23 19:59 Dose: 650 mg Documented By: JORGE Carbidopa/Levodopa (Carbidopa/Levodopa 25/100 Tablet) 2 tab PO TID@0800,1200,2100 [facility] Last Admin: 04/14/23 08:01 Dose: 2 tab Documented By: ALEX Digoxin (Digoxin 0.125 Mg Tablet) 0.125 mg PO DAILY [facility] Docusate Sodium (Docusate Sodium 100 Mg Capsule) 100 mg PO DAILY PRN PRN Reason: Constipation Last Admin: 04/11/23 07:29 Dose: 100 mg Documented By: MARGRET Empagliflozin (Empagliflozin 10 Mg Tablet) 10 mg PO DAILY [facility] Last Admin: 04/14/23 08:02 Dose: 10 mg Documented By: ALEX Enoxaparin Sodium (Enoxaparin Sodium 40 Mg/0.4 Ml Syringe) 40 mg SUBCUT Q24H [facility] Last Admin: 04/13/23 19:58 Dose: 40 mg Documented By: JORGE Escitalopram Oxalate (Escitalopram Oxalate 5 Mg Tablet) 5 mg PO DAILY [facility] Last Admin: 04/14/23 08:01 Dose: 5 mg Documented By: ALEX Gabapentin (Gabapentin 100 Mg Capsule) 100 mg PO DAILY [facility] Last Admin: 04/14/23 08:02 Dose: 100 mg Documented By: ALEX Gabapentin (Gabapentin 300 Mg Capsule) 300 mg PO BEDTIME [facility] Last Admin: 04/13/23 19:59 Dose: 300 mg Documented By: JORGE Lisinopril (Lisinopril 10 Mg Tablet) 10 mg PO DAILY [facility]; Protocol Last Admin: 04/14/23 08:01 Dose: 10 mg Documented By: ALEX Melatonin (Melatonin 3 Mg Tablet) 3 mg PO BEDTIME PRN PRN Reason: Sleep Last Admin: 04/12/23 19:52 Dose: 3 mg Documented By: LIU Metoprolol Tartrate (Metoprolol Tartrate 50 Mg Tablet) 50 mg PO BID [facility]; Protocol Last Admin: 04/14/23 08:01 Dose: 50 mg Documented By: ALEX Ondansetron HCl (Ondansetron Hcl 4 Mg/2 Ml Vial) 4 mg IVPUSH Q8H PRN PRN Reason: Nausea and Vomiting Quetiapine Fumarate (Quetiapine Fumarate 25 Mg Tablet) 25 mg PO BEDTIME [facility] Last Admin: 04/13/23 19:59 Dose: 25 mg Documented By: JORGE Ropinirole HCl (Ropinirole Hcl 0.25 Mg Tablet) 0.25 mg PO BEDTIME [facility] Last Admin: 04/13/23 19:59 Dose: 0.25 mg Documented By: JORGE Sodium Chloride (0.9 % Sodium Chloride Flush 3 Ml Syringe) 3 ml IVFLUSH QSHIFT [facility] Last Admin: 04/14/23 08:02 Dose: 3 ml Documented By: ALEX Labs 04/13/23 06:33 04/13/23 06:33 Assessment and Plan (1) Atrial fibrillation with RVR: Status: Acute Plan 68M PMH paroxysmal atrial fibrillation, chronic systolic CHF, Parkinson's presented with low-grade fever, rapid AFib sirs Question viral illness Symptomatic management Hold off on antibiotics for now appears resolved coag neg staph in 1/2 likely contaminant, no further treatement/workup Paroxysmal atrial fibrillation with rapid ventricular response P.o. Lopressor - 50mg bid, cardio appreciated, avoid diltiazem, not on anticoagulation due to frequent fall added digoxin still not fully controlled Chronic systolic CHF Does not appear to be volume overloaded at this time Parkinson's Sinemet DVT prophylaxis with Lovenox Full code reason for continued hospitalization:rate control, safe dispo Time Spent With Patient Time: Total time managing care of this patient today ____ minutes. Quality Stroke Does the patient have a stroke diagnosis?: No VTE Prior VTE?: No VTE Risk Level:: Medical - moderate - high VTE Device Contraindication: Treatment Not Indicated VTE Drug Contraindication: N/A - Med Ordered
[2023-04-14] MEDS: Digoxin 0.125 MG TABLET PO (10:05)
[2023-04-14 11:12] VITALS: BP 165/85; PULSE 73; RESP 20; TEMP 36.7; O2SAT 95
[2023-04-14 15:43] VITALS: BP 137/80; PULSE 105; RESP 14; TEMP 36.6; O2SAT 92
[2023-04-14] MEDS: Metoprolol Succinate ER 100 MG TAB.ER.24H PO (16:33)
[2023-04-14 19:41] VITALS: BP 144/90; PULSE 104; RESP 14; TEMP 37.4; O2SAT 93
[2023-04-14] MEDS: rOPINIRole HCL 0.25 MG TABLET PO (20:36)
[2023-04-14] MEDS: Enoxaparin Sodium 40 MG/0.4 ML SYRINGE SUBCUT (20:36)
[2023-04-14] MEDS: Melatonin 3 MG TABLET PO (20:36)
[2023-04-14] MEDS: Gabapentin 300 MG CAPSULE PO (20:36)
[2023-04-14] MEDS: QUEtiapine Fumarate 25 MG TABLET PO (20:37)
[2023-04-14 23:53] VITALS: BP 143/73; PULSE 122; RESP 20; TEMP 36.2; O2SAT 92
[2023-04-15 03:10] VITALS: BP 194/81; PULSE 94; RESP 20; TEMP 36.9; O2SAT 91
[2023-04-15 06:52] LABS: Hematocrit 41.6 % (42.0-52.0); Hemoglobin 13.6 g/dl (14.0-18.0); Mean Corpuscular HGB Conc 32.7 g/dl (31.0-36.0); Mean Corpuscular Hemoglobin 29.4 pg (27.0-33.0); Mean Platelet Volume 9.1 fL (9.4-12.4); Platelet Count 359 X10*3/uL (160-400); Red Blood Count 4.62 X10*6/uL (4.60-5.80); Red Cell Distribution Width 12.8 % (11.0-16.0); White Blood Count 11.8 X10*3/uL (4.8-10.8)
[2023-04-15 07:16] VITALS: BP 134/82; PULSE 101; RESP 18; TEMP 37.1; O2SAT 94
[2023-04-15 07:42] LABS: Anion Gap 14 (12-20); Blood Urea Nitrogen 14 mg/dL (9-16); Calcium 9.1 mg/dL (8.4-10.2); Carbon Dioxide 24 mmol/L (22-29); Chloride 106 mmol/L (96-108); Creatinine Clr Calc Pharmacy 60.8; Estimated Glomerular Filt Rate > 60; Glucose Fasting 124 mg/dL (60-99); Magnesium 2.2 mg/dL (1.6-2.6); Potassium 4.1 mmol/L (3.3-5.1); Sodium 140 mmol/L (135-145)
[2023-04-15] MEDS: Carbidopa/Levodopa 25/100 TABLET 2 TAB PO ×2 (08:00→11:49)
[2023-04-15] MEDS: Metoprolol Succinate ER 100 MG TAB.ER.24H PO (08:00)
[2023-04-15] MEDS: Gabapentin 100 MG CAPSULE PO (08:00)
[2023-04-15] MEDS: Escitalopram Oxalate 5 MG TABLET PO (08:00)
[2023-04-15] MEDS: lisinopriL 10 MG TABLET PO (08:00)
[2023-04-15] MEDS: Empagliflozin 10 MG TABLET PO (08:00)
[2023-04-15] MEDS: Digoxin 0.125 MG TABLET PO (08:00)
[2023-04-15] MEDS: 0.9 % Sodium Chloride Flush 3 ML SYRINGE IVFLUSH (08:05)
--- NOTE | 2023-04-15 08:58 | PM.DS ---
DS: Providers Provider Date of Service: 04/15/23 Date of admission: 04/10/23 19:25 Primary care physician: Lachelle Simon MD Consults: 04/10/23 19:25 Consult to Cardiology Routine Consulting Provider: [facility] Reason for consultation: afib rvr Has provider been notified: Yes 04/11/23 15:02 Consult for Sitter Routine Reason for consultation: agitatione DS: Diagnosis Discharge Diagnosis (1) Atrial fibrillation with RVR: Status: Acute DS: Summary Hospital Course Hospital Course: from initial hpi: 68-year-old male with history of paroxysmal atrial fibrillation on anticoagulation, cardiomyopathy, heart failure with reduced ejection fraction, and Parkinson's disease presented to ED earlier today via EMS for evaluation of generalized malaise and low-grade fevers.? He did also sustain a mechanical fall earlier today after tripping on some rocks but no head injury or loss of consciousness.? On arrival, slightly elevated temperature of 100.3 degrees found to be in atrial fibrillation with RVR with heart rates varying between 113-124 despite 5 mg IV Lopressor.? He has been intermittently tachypneic to 24 but no hypoxia or hypotension.? There is a mild leukocytosis of 11.6.? Mild normocytic anemia.? Renal function baseline.? Sodium 147, potassium 3.9, chloride 114.? Lactic acid 1.8.? Initial troponin 19.3, repeat 30.9.? BNP 1157.? Urinalysis unremarkable except for elevated specific gravity and 1+ protein.? Negative for COVID-19.? Chest x-ray negative for any acute cardiopulmonary process.? EKG shows atrial fibrillation with RVR, rate 122 with nonspecific T-wave abnormality.? In the ED, given 975 mg Tylenol, 5 mg IV Lopressor, and 1 L IV NS. Denies sick contacts hospital course: Patient was admitted for sirs likely due to viral illness. Cultures, respiratory viral panel were all negative. Patient's symptoms resolved. Did not receive antibiotics. Course was complicated by paroxysmal atrial fibrillation with rapid ventricular response. Metoprolol was titrated to Toprol 100 mg daily. Due to reduced EF calcium channel blockers were avoided. Digoxin has been added. He is not on anticoagulation due to fall risk. For chronic systolic CHF he appeared usually. He will continue on metoprolol and Jardiance. For Parkinson's he was continued on Sinemet. Patient is feeling better will be discharged home. Time Spent with Patient Time attestation: Total time managing care of this patient today ____ minutes. Discharge coordination time: Greater than 30 minutes Quality: Safe Use of Opioids Does Pt have an Active Cancer Diagnosis on the Problem List?: No Quality: Stroke Does the patient have a stroke diagnosis?: No Physical Exam Vital Signs: Vital Signs: Last Vital Signs Temp 98.7 F 04/15/23 07:16 Pulse 101 H 04/15/23 07:16 Resp 18 04/15/23 07:16 BP 134/82 04/15/23 07:16 Pulse Ox 94 04/15/23 07:16 O2 Del Method Room Air 04/15/23 07:16 BMI result Body Mass Index 21.6 alert, minimally verbal, bradykinetic, lungs clear DS: Data Data Completed and Pending Labs on day of discharge: Laboratory Results - last 24 hr 04/15/23 04/15/23 06:19 06:19 WBC 11.8 H RBC 4.62 Hgb 13.6 L Hct 41.6 L MCV 90.0 MCH 29.4 MCHC 32.7 RDW 12.8 Plt Count 359 MPV 9.1 L Absolute Nucleated RBC 0.000 Nucleated RBC % (auto) 0.0 Sodium 140 Potassium 4.1 Chloride 106 Carbon Dioxide 24 Anion Gap 14 BUN 14 Creatinine 1.14 Estim Creat Clear Calc 60.8 Estimated GFR > 60 Fasting Glucose 124 H Calcium 9.1 D Magnesium 2.2 Preliminary micro results at discharge 04/10/23 15:38 Blood Culture - Preliminary Blood - Venous No growth after 48 hours. Discharge Plan Discharge Anticipated Discharge Date/Time: 04/15/23 08:56 Patient Disposition: Home Health Service Discharge Diagnosis: afib Referrals: Lachelle Simon MD [Primary Care Provider] - 1 Week Discharge Medications: New digoxin 125 mcg (0.125 mg) Tablet 0.125 mg PO DAILY Qty: 30 0RF metoprolol succinate 100 mg Tablet Extended Release 24 Hr 100 mg PO DAILY Qty: 30 0RF Protocol: Hold for SBP/HR < HOLD for SBP < : 90 HOLD for HR < : 60 Jardiance 10 mg Tablet 10 mg PO DAILY Qty: 30 0RF Continued melatonin 3 mg Tablet 3 mg PO BEDTIME PRN (Reason: Sleep) lisinopril 10 mg Tablet 10 mg PO DAILY gabapentin 300 mg Capsule 300 mg PO BEDTIME gabapentin 100 mg Capsule 100 mg PO DAILY carbidopa-levodopa 25-100 mg Tablet 2 tab PO TID@0800,1200,2100 quetiapine 25 mg tablet 25 mg PO BEDTIME escitalopram oxalate 5 mg tablet 5 mg PO DAILY ropinirole 0.25 mg tablet 0.25 mg PO BEDTIME Discharge Orders: Discharge Order (Routine); Ordered 04/15/23 Ordered By: Nic Gregory Diet: ndd2 solids Activity on Discharge: As tolerated Stand Alone Forms: Patient Portal Discharge page Care Plan Goals: recovery Health Concerns: afib Plan of Treatment: med changes as above Assessment: see above
--- NOTE | 2023-04-15 09:17 | MHC.CM.PN ---
e [facility] notified of dc
--- NOTE | 2023-04-15 09:40 | MHC.CM.PN ---
contacted to notify of time of amb transport she confirmed she wioll be home
== END 2023-04-15 12:34 | disposition home health service (06) | DRG 309 ==
LOC: HO.ED 18:20 → HO.EDOVER 20:01 → HO.IMC 20:20
PROVIDERS: Student in an Organized Health Care Education/Training Program; Admitting Provider Physician Assistant; Emergency Provider Emergency Medicine Emergency Medical Services; PCP Internal Medicine; Visit Provider Internal Medicine
DX: I48.0 Paroxysmal atrial fibrillation (principal); E87.0 Hyperosmolality and hypernatremia; I50.22 Chronic systolic (congestive) heart failure; B34.9 Viral infection, unspecified; I42.9 Cardiomyopathy, unspecified; I11.0 Hypertensive heart disease with heart failure; G20 Parkinson's disease; E86.0 Dehydration; Z20.822 Contact with and (suspected) exposure to COVID-19; Z98.1 Arthrodesis status; Z87.891 Personal history of nicotine dependence; Z79.899 Other long term (current) drug therapy
CPT/HCPCS: 36415; 71045; 80048; 80053; 80076; 81001; 83605; 83690; 83735; 83880; 84443; 84484; 85025; 85027; 85610; 87040; 87205; 87633; 87635; 93005; 93306; 97162; 99285; J0692; J1160; J1650; Q9957

== ENCOUNTER → 2023-04-10 16:25 | Outpatient (BNV) | payer MEDICARE, SELFPAY | PROVIDERS: Emergency Provider Emergency Medicine Emergency Medical Services; Visit Provider Physician Assistant | DX: I48.91 Unspecified atrial fibrillation (principal) | CPT/HCPCS: 99223; 99232; 99499 ==

== ENCOUNTER 2023-04-10 19:25 | Outpatient (BNV) | payer MEDICARE, SELFPAY | END 2023-04-11 07:00 | PROVIDERS: Admitting Provider Physician Assistant; Emergency Provider Emergency Medicine Emergency Medical Services; PCP Internal Medicine; Visit Provider Internal Medicine Cardiovascular Disease | DX: I48.91 Unspecified atrial fibrillation (principal) | CPT/HCPCS: 93306 ==

== ENCOUNTER → 2023-04-10 19:25 | Outpatient (BNV) | payer MEDICARE, SELFPAY | PROVIDERS: Admitting Provider Physician Assistant; Emergency Provider Emergency Medicine Emergency Medical Services; Visit Provider Internal Medicine Cardiovascular Disease | DX: I42.9 Cardiomyopathy, unspecified (principal); I48.21 Permanent atrial fibrillation | CPT/HCPCS: 99222 ==

== ENCOUNTER 2023-04-15 21:32 | Inpatient (IN) | payer MEDICARE, SELFPAY ==
--- NOTE | ~2023-04-15 | XR_ITS ---
EXAMINATION: XR CHEST CLINICAL INFORMATION: Fever. COMPARISON: Chest x-ray April 10, 2023 TECHNIQUE: Frontal portable view of the chest was obtained. 10:35 PM FINDINGS: Low lung volume. This accentuates bronchovascular markings. No acute abnormality. No overt pulmonary edema. No focal consolidation. No pleural effusion or pneumothorax. Orthopedic fusion hardware lower cervical spine. XR/XR chest 1V IMPRESSION: Low lung volume. No acute abnormality of chest.
--- NOTE | ~2023-04-15 | CT_ITS ---
EXAMINATION: CT ABDOMEN AND PELVIS WITHOUT CONTRAST CLINICAL INFORMATION: Sepsis. COMPARISON: 12/26/2022 TECHNIQUE: Multidetector volumetric imaging was performed from the superior aspect of the liver through the pubic symphysis. Sagittal and coronal reformatted images were obtained on the technologist's workstation. This CT examination was performed using dose optimization techniques as appropriate, variously including the following: *Automated exposure control. *Adjustment of mA and/or kV according to patient size (this includes techniques or standardized protocols for targeted exams where dose is matched to indication/reason for exam; i.e. extremities or head). *Use of iterative reconstruction technique. DLP: 752 mGy-cm. FINDINGS: LUNG BASES: The heart is enlarged. There are small bilateral pleural effusions associated with bilateral lung base consolidation. LIVER, GALLBLADDER, AND BILIARY TREE: The liver is normal in size, shape, and attenuation. No focal hepatic lesion or biliary ductal dilatation is present. The gallbladder is unremarkable with no evidence of radiopaque gallstones, gallbladder wall thickening, or obvious pericholecystic inflammatory changes. PANCREAS: Unremarkable. SPLEEN: Unremarkable. ADRENAL GLANDS: Unremarkable. KIDNEYS AND URETERS: The kidneys are normal in size, shape, and attenuation. There is a 1 mm nonobstructing calculus upper pole left kidney. There is no hydronephrosis or hydroureter. No perinephric stranding. There is right renal vascular calcification. There is a 1.7 cm cyst midpole right kidney. BLADDER: There is mild urinary bladder wall thickening. GASTROINTESTINAL TRACT: There are a few diverticula of the descending and sigmoid colon without diverticulitis. The appendix is unremarkable. ABDOMINAL WALL: There is soft tissue anasarca. LYMPH NODES: Normal. VASCULAR: There is atherosclerotic plaque of the abdominal aorta. PELVIC VISCERA: Unremarkable. OSSEOUS STRUCTURES: There is L2-L3-L4-L5 posterior fusion. There is diffuse [id number] thoracolumbar disc degenerative change most pronounced at L4-L5 and L5-S1. There is a partially healed lateral right 11th rib fracture. CT/CT abdomen pelvis wo IV con IMPRESSION: 1. Small bilateral pleural effusions associated with bibasilar lung consolidation possibly atelectasis and/or infiltrate. 2. Soft tissue anasarca. 3. Nonobstructing 1 mm calculus upper pole left kidney 4. Diverticula of the descending and sigmoid colon without diverticulitis. 5. There is no acute intra-abdominal process. Fleischner guidelines were followed.
--- NOTE | ~2023-04-15 | XR_ITS ---
EXAMINATION: XR CHEST 11:47 AM CLINICAL INFORMATION: Fever COMPARISON: CT abdomen and pelvis of 04/15/2023 TECHNIQUE: Frontal view of the chest was obtained. FINDINGS: The right lung is clear. Left lower lobe atelectasis or consolidation and small left pleural effusion are evident as on the recent CT. The right lung is clear. The cardiomediastinal silhouette is magnified by the AP position.. XR/XR chest 1V IMPRESSION: Left lower lobe atelectasis or pneumonia and small left pleural effusion, as on thoracic CT of 04/15/2023
--- NOTE | 2023-04-15 21:39 | ECG_ITS ---
Test Reason : ams fall weakness Blood Pressure : / mmHG Vent. Rate : 093 BPM Atrial Rate : 000 BPM P-R Int : 000 ms QRS Dur : 096 ms QT Int : 360 ms P-R-T Axes : 000 010 115 degrees QTc Int : 447 ms Atrial fibrillation Minimal voltage criteria for LVH, may be normal variant ( Brett product ) Nonspecific ST and T wave abnormality Abnormal ECG When compared with ECG of 10-APR-2023 15:10, No significant change was found Referred By: Generic ED Physician Electronically Signed By:JOSE A ROSAS
[2023-04-15 21:41] VITALS: BP 141/88; PULSE 119; RESP 16; TEMP 38.8; O2SAT 91; BMI 17.0
--- NOTE | 2023-04-15 22:02 | ED_ITS ---
HPI - Altered Mental Status General Chief Complaint: Altered Mental Status Stated Complaint: AMS Time Seen by Provider: 04/15/23 22:01 Source: family and EMS Mode of arrival: EMS Limitations: altered mental status History of Present Illness HPI narrative: Patient is 68 years old with history of paroxysmal AFib chronic systolic heart failure Parkinson disease with just admitted on 04/11 for fever and AFib with rapid ventricular rate discharge earlier today reached home at 12:30 p.m.. Patient daughter noticed patient is out, not communicating as well confused sleeping and had a fever of 102 degrees did not eat much. According to patient's daughter Meena patient does not have dementia is pretty sharp does tolentino ve weakness and used to walk with walker now mostly wheelchair-bound . It is during stay in the hospital workup for sepsis was negative blood cultures were negative etiology was not clear if patient discharged today earlier when patient discharge his white count were elevated to 11.8 from 5.3 on 04/13. Related Data Home Medications Medication Instructions Recorded Confirmed carbidopa 25 mg-levodopa 100 mg 2 tab PO TID@0800,1200,2100 12/23/21 04/15/23 tablet gabapentin 100 mg capsule 100 mg PO DAILY 12/23/21 04/15/23 gabapentin 300 mg capsule 300 mg PO BEDTIME 12/23/21 04/15/23 lisinopril 10 mg tablet 10 mg PO DAILY 12/23/21 04/15/23 melatonin 3 mg tablet 3 mg PO BEDTIME PRN Sleep 12/23/21 04/15/23 escitalopram oxalate 5 mg tablet 5 mg PO DAILY 04/10/23 04/15/23 quetiapine 25 mg tablet 25 mg PO BEDTIME 04/10/23 04/15/23 ropinirole 0.25 mg tablet 0.25 mg PO BEDTIME 04/10/23 04/15/23 Previous Rx's Medication Instructions Recorded digoxin 125 mcg (0.125 mg) tablet 125 mcg PO Q2D #30 tabs 04/15/23 empagliflozin 10 mg tablet 10 mg PO DAILY #30 tabs 04/15/23 (Jardiance) metoprolol succinate 100 mg 100 mg PO DAILY #30 tabs 04/15/23 tablet,extended release 24 hr Allergies Allergy/AdvReac Type Severity Reaction Status Date / Time No Known Allergies Allergy Verified 03/15/23 18:56 Review of Systems Review of Systems: Yes Unobtainable due to mental condition [facility] Past Medical History Medical History Atrial fibrillation with rapid ventricular response Cardiomyopathy CHF (congestive heart failure) HTN (hypertension) Parkinson disease Surgical History H/O spinal fusion Family History Family History Mother CAD (coronary artery disease) Social History Social History Household Members: Significant Other Housing: House Do you presently have visiting nurse or other home services: Yes Unable to assess alcohol history related to: Unknown Alcohol intake: never Patient Tobacco Use Status: Former Tobacco user e-Cigarette/Vaping Use: Never Used Substance Use Type: Marijuana Advance Directives: Yes Advance Directives on File: Yes Advance Directives Date on File: 12/27/21 service: No Current occupational status: retired Physical Exam ED Vital Signs: Vital Signs - 24 hr 04/15/23 21:41 04/15/23 22:48 Temperature 102 F H Pulse Rate 119 H 75 Respiratory Rate 16 18 Blood Pressure 141/88 H 154/80 H Pulse Oximetry 91 L 94 Oxygen Delivery Method Nasal Cannula Nasal Cannula Oxygen Flow Rate 2 BMI result Body Mass Index 17.0 Appearance: Lethargic No acute distress. Eyes: PERRL ENT: Pharynx normal. Oral Mucosa dry Neck: Normal inspection. Neck supple. CVS: Normal heart rate and rhythm. Pulses normal. Respiratory: No respiratory distress. Equal air entry bilateral, no wheezing/rales/rhonchi Abdomen: Soft and nontender. Bowel sounds are present, no mass palpable, no CVA tenderness Skin: Skin warm and dry. Normal skin color. Normal skin turgor. Extremities: No lower extremity edema. No calf tenderness Neuro: Lethargic oriented to self. Able to move his extremities Medications Administered Generic Name Dose Route Start Last Admin Trade Name Freq PRN Reason Stop Dose Admin Sodium Chloride 3 ml 04/16/23 00:00 04/15/23 23:16 0.9 % Sodium Chloride Flush 3 Ml Syringe IVFLUSH Not Given QSHIFT STEPH Discontinued Medications Generic Name Dose Route Start Last Admin Trade Name Freq PRN Reason Stop Dose Admin Acetaminophen 650 mg 04/15/23 22:02 04/15/23 22:16 Acetaminophen Supp 650 Mg Supp.Rect KS 04/15/23 22:03 650 mg ONCE ONE Administration Sodium Chloride 1,000 mls @ 999 mls/hr 04/15/23 22:04 04/15/23 23:40 Ns IV 04/15/23 23:04 Infused .Q1H1M ONE Infusion Ceftriaxone Sodium 1 gm/ 50 mls @ 100 mls/hr 04/15/23 22:04 04/15/23 22:56 Sodium Chloride IV 04/15/23 22:33 Infused ONCE ONE Infusion Medical Decision Making Medical Decision Making [facility] Narrative: Patient with fever with leukocytosis with tachycardia meeting the criteria for sepsis urine showed nitrite positive the chest x-ray with bilateral basal atelectasis/pneumonia likely patient has aspiration pneumonia with UTI will give IV Rocephin fluids plan for admission Differential Diagnosis Differential Diagnoses: The differential diagnosis associated with the presentation includes Sepsis/viral syndrome/UTI/pneumonia/metabolic encephalopathy/SIRS Admission/Observation Consideration of admission/observation: Escalation of care including admission/observation considered Consult Healthcare Provider Management of the patient was discussed with: Hospitalist Lab Data [facility] Lab Attestation statement: I reviewed the patient's lab results. 04/15/23 22:01 04/15/23 22:01 Labs: Lab Results 04/15/23 04/15/23 04/15/23 Range/Units 22:01 22:01 22:01 WBC 18.3 H (4.8-10.8) X10*3/uL RBC 4.74 (4.60-5.80) X10*6/uL Hgb 14.1 (14.0-18.0) g/dl Hct 42.8 (42.0-52.0) % MCV 90.3 (80.0-98.0) fL MCH 29.7 (27.0-33.0) pg MCHC 32.9 (31.0-36.0) g/dl RDW 13.1 (11.0-16.0) % Plt Count 282 (160-400) X10*3/uL MPV 9.0 L (9.4-12.4) fL Immature Gran % (Auto) Cancelled Neut % (Auto) Cancelled Lymph % (Auto) Cancelled [place] % (Auto) Cancelled Eos % (Auto) Cancelled Baso % (Auto) Cancelled Lymph # (Auto) Cancelled [place] # (Auto) Cancelled Eos # (Auto) Cancelled Baso # (Auto) Cancelled Abs Immat Gran (auto) Cancelled Absolute Neuts (auto) Cancelled Absolute Nucleated RBC 0.000 (0.0-0.012) X10*3/uL Nucleated RBC % (auto) 0.0 (0.0-0.2) /100WBC Neutrophils % (Manual) 93 H (45-73) % Lymphocytes % (Manual) 3 L (20-40) % Monocytes % (Manual) 4 (2-11) % Abs Neuts (Manual) 17.0 H (2.0-8.3) X10*3/uL Lymphocytes # (Manual) 0.5 L (1.2-4.9) X10*3/uL Monocytes # (Manual) 0.7 (0.1-1.2) X10*3/uL Platelet Estimate NORMAL (NORMAL) Plt Morphology Comment NORMAL RBC Morphology NORMAL Sodium 138 (135-145) mmol/L Potassium 4.1 (3.3-5.1) mmol/L Chloride 105 (96-108) mmol/L Carbon Dioxide 24 (22-29) mmol/L Anion Gap 13 (12-20) BUN 17 H (9-16) mg/dL Creatinine 1.29 (0.5-1.4) mg/dL Estim Creat Clear Calc 48.3 Estimated GFR 55 Random Glucose 118 H (60-115) mg/dL Lactic Acid (0.5-2.0) mmol/L Calcium 8.8 (8.4-10.2) mg/dL Total Bilirubin 0.7 (0.0-1.0) mg/dL AST 39 H (5-37) U/L ALT 6 (0-40) U/L Alkaline Phosphatase 112 (39-117) U/L Troponin I High Sens 43.1 H D (<3.5-35.0) ng/L Total Protein 6.7 (6.5-8.0) g/dL Albumin 3.3 L (3.5-5.0) g/dL Urine Color Urine Appearance Urine pH (5.0-9.0) Ur Specific [place] (1.005-1.025) Urine Protein (Neg-Trace) mg/dL Urine Glucose (UA) (Negative) mg/dL Urine Ketones (Negative) mg/dL Urine Blood (Negative) Urine Nitrite (Negative) Ur Leukocyte Esterase (Negative) Urine RBC (0-2) /HPF Urine WBC (0-5) /HPF Ur Squamous Epith Cells (0-2) /HPF Urine Bacteria (None Seen) Hyaline Casts (0-2) /LPF 04/15/23 04/15/23 Range/Units 22:01 22:03 WBC (4.8-10.8) X10*3/uL RBC (4.60-5.80) X10*6/uL Hgb (14.0-18.0) g/dl Hct (42.0-52.0) % MCV (80.0-98.0) fL MCH (27.0-33.0) pg MCHC (31.0-36.0) g/dl RDW (11.0-16.0) % Plt Count (160-400) X10*3/uL MPV (9.4-12.4) fL Immature Gran % (Auto) Neut % (Auto) Lymph % (Auto) [place] % (Auto) Eos % (Auto) Baso % (Auto) Lymph # (Auto) [place] # (Auto) Eos # (Auto) Baso # (Auto) Abs Immat Gran (auto) Absolute Neuts (auto) Absolute Nucleated RBC (0.0-0.012) X10*3/uL Nucleated RBC % (auto) (0.0-0.2) /100WBC Neutrophils % (Manual) (45-73) % Lymphocytes % (Manual) (20-40) % Monocytes % (Manual) (2-11) % Abs Neuts (Manual) (2.0-8.3) X10*3/uL Lymphocytes # (Manual) (1.2-4.9) X10*3/uL Monocytes # (Manual) (0.1-1.2) X10*3/uL Platelet Estimate (NORMAL) Plt Morphology Comment RBC Morphology Sodium (135-145) mmol/L Potassium (3.3-5.1) mmol/L Chloride (96-108) mmol/L Carbon Dioxide (22-29) mmol/L Anion Gap (12-20) BUN (9-16) mg/dL Creatinine (0.5-1.4) mg/dL Estim Creat Clear Calc Estimated GFR Random Glucose (60-115) mg/dL Lactic Acid 1.0 (0.5-2.0) mmol/L Calcium (8.4-10.2) mg/dL Total Bilirubin (0.0-1.0) mg/dL AST (5-37) U/L ALT (0-40) U/L Alkaline Phosphatase (39-117) U/L Troponin I High Sens (<3.5-35.0) ng/L Total Protein (6.5-8.0) g/dL Albumin (3.5-5.0) g/dL Urine Color Yellow Urine Appearance Clear Urine pH 7.0 (5.0-9.0) Ur Specific [place] >= 1.030 H (1.005-1.025) Urine Protein 100 (2+) H (Neg-Trace) mg/dL Urine Glucose (UA) >=1000 H (Negative) mg/dL Urine Ketones Negative (Negative) mg/dL Urine Blood Large (3+) H (Negative) Urine Nitrite Positive H (Negative) Ur Leukocyte Esterase Negative (Negative) Urine RBC 0-2 (0-2) /HPF Urine WBC 0-5 (0-5) /HPF Ur Squamous Epith Cells 3-5 (0-2) /HPF Urine Bacteria 4+ (None Seen) Hyaline Casts 0-2 (0-2) /LPF Radiology Impression Discussion of test interpretation with radiology: I have reviewed the radiologist's reading. External Record Review External record reviewed: Inpatient record Critical Care Time Critical Care Time Critical Care Time: Yes Total Critical Care Time: 40 Attestation: The patient was critically ill with a high probability of imminent or life thr eatening deterioration. I spent greater than 45 minutes of discontinuous time evaluating the patient,delivering critical care at the bedside, discussing and evaluating pertinent data with consultants. Critical care time does not include time spent performing separately billable procedures or teaching. Total time spent performing critical care was 40 minutes. Discharge Plan Discharge Clinical Impression: Sepsis, Acute UTI, Pneumonia Patient Disposition: Admitted As Inpatient
[2023-04-15] MEDS: 0.9 % Sodium Chloride 1,000 ML 999 ML IV (22:08)
[2023-04-15 22:12] LABS: Hematocrit 42.8 % (42.0-52.0); Hemoglobin 14.1 g/dl (14.0-18.0); Mean Corpuscular HGB Conc 32.9 g/dl (31.0-36.0); Mean Corpuscular Hemoglobin 29.7 pg (27.0-33.0); Mean Corpuscular Volume 90.3 fL (80.0-98.0); Platelet Count 282 X10*3/uL (160-400); Red Blood Count 4.74 X10*6/uL (4.60-5.80); Red Cell Distribution Width 13.1 % (11.0-16.0)
--- NOTE | 2023-04-15 22:14 | MHC.EDTECH ---
Patient was brought in by ambulance and changed into hospital attire, patient was placed on the media monitor and vitals were taken,patient has a rectal temp of 102.1 RN at bedside and provider was made aware. EKG,Labs and blood cultures obtained and sent to lab. Urine Culture was obtained and sent to lab and patient had an output of 150cc after RN Steph straight Cathed.
[2023-04-15 22:15] LABS: Appearance Urine Clear; Color Urine Yellow; Glucose Urine UA >=1000 mg/dL (Negative); Leukocyte Esterase Urine Negative (Negative); Nitrite Urine Positive (Negative); Specific Gravity - Urine >= 1.030 (1.005-1.025); UMIC TRIGGER UACC YES; Urine Blood Large (3+) (Negative); Urine Ketones Negative (Negative); Urine Protein 100 (2+) mg/dL (Neg-Trace)
[2023-04-15] MEDS: cefTRIAXone sodium 1 GM in 0.9 % Sodium Chloride 50 ML IV (22:16)
[2023-04-15] MEDS: Acetaminophen Supp 650 MG SUPP.RECT PR (22:16)
[2023-04-15 22:17] LABS: WBC ABN SCTR FOR CBC 1
[2023-04-15 22:26] LABS: Alanine Aminotransferase 6 U/L (0-40); Albumin Level 3.3 g/dL (3.5-5.0); Alkaline Phosphatase 112 U/L (39-117); Anion Gap 13 (12-20); Aspartate Amino Transferase 39 U/L (5-37); Bilirubin Total 0.7 mg/dL (0.0-1.0); Blood Urea Nitrogen 17 mg/dL (9-16); Calcium 8.8 mg/dL (8.4-10.2); Carbon Dioxide 24 mmol/L (22-29); Chloride 105 mmol/L (96-108); Creatinine Clr Calc Pharmacy 48.3; Estimated Glomerular Filt Rate 55; Glucose Random 118 mg/dL (60-115); Potassium 4.1 mmol/L (3.3-5.1); Sodium 138 mmol/L (135-145); Total Protein 6.7 g/dL (6.5-8.0)
[2023-04-15 22:31] LABS: Troponin-I High Sensitivity 43.1 ng/L (<3.5-35.0)
[2023-04-15 22:34] LABS: White Blood Count 18.3 X10*3/uL (4.8-10.8)
[2023-04-15 22:35] LABS: Lymphocytes Absolute Manual 0.5 X10*3/uL (1.2-4.9); Lymphocytes Percent Manual 3 % (20-40); Monocytes Absolute Manual 0.7 X10*3/uL (0.1-1.2); Monocytes Percent Manual 4 % (2-11); Neutrophils Percent Manual 93 % (45-73); Platelet Estimate NORMAL (NORMAL); Platelet Morphology Comment NORMAL; RBC Morphology NORMAL
[2023-04-15 22:39] LABS: Bacteria Urine 4+ (None Seen); Hyaline Casts Urine 0-2 /LPF (0-2); RBC Urine 0-2 /HPF (0-2); UACC Culture Trigger YES; WBC Urine 0-5 /HPF (0-5)
[2023-04-15 22:48] VITALS: BP 154/80; PULSE 75; RESP 18; O2SAT 94
--- NOTE | 2023-04-15 23:00 | P.HPHOSP_ITS ---
History of Present Illness Date of Service: 04/15/23 Chief Complaint: Fever This is a 68-year-old male with pertinent history of chronic congestive heart failure with reduced ejection fraction, paroxysmal atrial fibrillation not on anticoagulation, Parkinson's disease who was brought to the emergency department for evaluation of altered mentation and fever. Of note, patient was recently admitted on 04/10 and discharged on 04/15 for sirs likely due to viral illness. Cultures were negative, patient's symptoms resolved and he was discharged. Patient did not receive any antibiotics during previous hospital course. His beta-jimmy was titrated up for AFib with RVR. Unable to obtain any history from the patient. History obtained from ER provider and chart review. As per the daughter, she noticed that patient was confused prior to presentation and had a fever of 102 degrees F. she brought the patient for further evaluation and management. Unable to obtain review of systems. In the emergency department, white count found to be elevated and imaging concerning for bilateral pneumonia Review of Systems Review of Systems: Yes Unobtainable due to mental status [facility] Medical History Atrial fibrillation with rapid ventricular response Cardiomyopathy CHF (congestive heart failure) HTN (hypertension) Parkinson disease Family History Mother CAD (coronary artery disease) Surgical History H/O spinal fusion Social History Household Members: Unknown / Unable to assess Housing: Unknown / Unable to assess Do you presently have visiting nurse or other home services: Yes Unable to assess alcohol history related to: Unknown Alcohol intake: never Patient Tobacco Use Status: Former Tobacco user e-Cigarette/Vaping Use: Never Used Use of substances other than those prescribed or required for medical reasons: Unable to respond Substance Use Type: Marijuana Advance Directives: Yes Advance Directives on File: Yes Advance Directives Date on File: 12/27/21 Nutrition Risks: On aspiration precautions service: No Current occupational status: retired Meds Allergies Allergy/AdvReac Type Severity Reaction Status Date / Time No Known Allergies Allergy Verified 03/15/23 18:56 Active Medications: Current Medications Sodium Chloride (Ns) 1,000 mls @ 999 mls/hr IV .Q1H1M ONE Stop: 04/15/23 23:04 Last Admin: 04/15/23 22:08 Dose: 999 mls/hr Home Medications Medication Instructions Recorded Confirmed Last Taken Type carbidopa 25 mg-levodopa 100 mg 2 tab PO TID@0800,1200,2100 12/23/21 04/15/23 12/26/22 History tablet gabapentin 100 mg capsule 100 mg PO DAILY 12/23/21 04/15/23 12/26/22 History gabapentin 300 mg capsule 300 mg PO BEDTIME 12/23/21 04/15/23 12/25/22 History lisinopril 10 mg tablet 10 mg PO DAILY 12/23/21 04/15/23 12/26/22 History melatonin 3 mg tablet 3 mg PO BEDTIME PRN Sleep 12/23/21 04/15/23 Unknown History escitalopram oxalate 5 mg tablet 5 mg PO DAILY 04/10/23 04/15/23 Unknown History quetiapine 25 mg tablet 25 mg PO BEDTIME 04/10/23 04/15/23 Unknown History ropinirole 0.25 mg tablet 0.25 mg PO BEDTIME 04/10/23 04/15/23 Unknown History Physical Exam Vital Signs and Narrative: Vital Signs: Last Vital Signs Temp 102 F H 04/15/23 21:41 Pulse 75 04/15/23 22:48 Resp 18 04/15/23 22:48 BP 154/80 H 04/15/23 22:48 Pulse Ox 94 04/15/23 22:48 O2 Del Method Nasal Cannula 04/15/23 22:48 O2 Flow Rate 2 04/15/23 22:48 Oxygen Flow Rate 2 04/15/23 21:41 BMI result Body Mass Index 17.0 Middle-aged male lying in bed in no distress Neck supple, no JVD Irregularly irregular, S1-S2 heard Decreased breath sounds at bases with bilateral crackles Abdomen soft nontender, no guarding, no rigidity Patient is awake, alert and oriented to self, disoriented to place, time and person ; no focal motor deficit Psych: Drowsy Results Labs 04/15/23 22:01 04/15/23 22:01 Labs: Laboratory Results - last 24 hr 04/15/23 04/15/23 04/15/23 22:01 22:01 22:01 MCV 90.3 MCH 29.7 MCHC 32.9 RDW 13.1 Plt Count 282 MPV 9.0 L Immature Gran % (Auto) Cancelled Neut % (Auto) Cancelled Lymph % (Auto) Cancelled [place] % (Auto) Cancelled Eos % (Auto) Cancelled Baso % (Auto) Cancelled Lymph # (Auto) Cancelled [place] # (Auto) Cancelled Eos # (Auto) Cancelled Baso # (Auto) Cancelled Abs Immat Gran (auto) Cancelled Absolute Neuts (auto) Cancelled Absolute Nucleated RBC 0.000 Nucleated RBC % (auto) 0.0 Neutrophils % (Manual) 93 H Lymphocytes % (Manual) 3 L Monocytes % (Manual) 4 Abs Neuts (Manual) 17.0 H Lymphocytes # (Manual) 0.5 L Monocytes # (Manual) 0.7 Platelet Estimate NORMAL Plt Morphology Comment NORMAL RBC Morphology NORMAL Anion Gap 13 Estim Creat Clear Calc 48.3 Estimated GFR 55 Random Glucose 118 H Lactic Acid 1.0 Calcium 8.8 Total Bilirubin 0.7 AST 39 H ALT 6 Alkaline Phosphatase 112 Total Protein 6.7 Albumin 3.3 L Urine Color Urine Appearance Urine pH Ur Specific [place] Urine Protein Urine Glucose (UA) Urine Ketones Urine Blood Urine Nitrite Ur Leukocyte Esterase Urine RBC Urine WBC Ur Squamous Epith Cells Urine Bacteria Hyaline Casts 04/15/23 22:03 MCV MCH MCHC RDW Plt Count MPV Immature Gran % (Auto) Neut % (Auto) Lymph % (Auto) [place] % (Auto) Eos % (Auto) Baso % (Auto) Lymph # (Auto) [place] # (Auto) Eos # (Auto) Baso # (Auto) Abs Immat Gran (auto) Absolute Neuts (auto) Absolute Nucleated RBC Nucleated RBC % (auto) Neutrophils % (Manual) Lymphocytes % (Manual) Monocytes % (Manual) Abs Neuts (Manual) Lymphocytes # (Manual) Monocytes # (Manual) Platelet Estimate Plt Morphology Comment RBC Morphology Anion Gap Estim Creat Clear Calc Estimated GFR Random Glucose Lactic Acid Calcium Total Bilirubin AST ALT Alkaline Phosphatase Total Protein Albumin Urine Color Yellow Urine Appearance Clear Urine pH 7.0 Ur Specific [place] >= 1.030 H Urine Protein 100 (2+) H Urine Glucose (UA) >=1000 H Urine Ketones Negative Urine Blood Large (3+) H Urine Nitrite Positive H Ur Leukocyte Esterase Negative Urine RBC 0-2 Urine WBC 0-5 Ur Squamous Epith Cells 3-5 Urine Bacteria 4+ Hyaline Casts 0-2 Assessment and Plan (1) Pneumonia: Status: Acute (2) Sepsis: Status: Acute Plan This is a 68-year-old male with pertinent history of chronic congestive heart failure with reduced ejection fraction, paroxysmal atrial fibrillation not on anticoagulation, Parkinson's disease who was brought to the emergency department for evaluation of altered mentation and fever. #. Acute hypoxemic respiratory failure and Sepsis due to pneumonia. Concerns for aspiration. Will admit patient and initiate empiric IV antibiotics. Resuscitated with IV crystalloids. Lactic acid and blood culture obtained. Sputum culture pending. Will consult speech for possible aspiration. Monitor oxygen saturation and wean as tolerated. #. Acute metabolic encephalopathy likely in the setting of above in a patient with underlying Parkinson's #. Paroxysmal atrial fibrillation. Continue p.o. beta-jimmy and digoxin. Not on anticoagulation due to frequent fall #. Chronic systolic congestive heart failure. No exacerbation on admission. Is on TERRA-inhibitor and beta-jimmy #. Parkinson's disease. Continue Sinemet Med rec pending DVT prophylaxis: Lovenox Full code Admit as inpatient and will require two night minimum hospital stay for supplemental oxygen and IV antibiotics Time Spent With Patient Time: Total time managing care of this patient today ____ minutes. Quality Stroke Does the patient have a stroke diagnosis?: No VTE Prior VTE?: No VTE Risk Level:: Medical - moderate - high VTE Device Contraindication: Treatment Not Indicated VTE Drug Contraindication: N/A - Med Ordered
[2023-04-15 23:17] VITALS: BP 146/86; PULSE 99; RESP 24; TEMP 36.9; O2SAT 97
[2023-04-15 23:26] VITALS: BP 122/82; PULSE 93; RESP 22; TEMP 38.2; O2SAT 97
--- NOTE | 2023-04-15 23:28 | MHC.EDTECH ---
Hourly rounds and vitals were completed with a rectal temp of 100.8,RN Steph was made aware. Patient was repositioned and is resting comfortably at this itme.
[2023-04-16] VITALS (8 sets, daily range): BP systolic 120–148; BP diastolic 67–110; PULSE 78–101; RESP 17–28; TEMP 36–38.1; O2SAT 95–98; BMI 17.7
--- NOTE | 2023-04-16 00:14 | MHC.EDTECH ---
Belongings list completed,patient only had boxer shorts and socks.
--- NOTE | 2023-04-16 00:41 | PC.NURSE ---
Nurse to nurse report given to SOL Petersen RN. Patient to be transported to [facility] by neurophysiology tech. Belongings list completed by KIERAN Bob.
[2023-04-16 01:07] LABS: COVID-19 Test Negative (Negative); IDNOW Serial# BCCEAD1C
[2023-04-16] MEDS: Ampicillin Sodium/Sulbactam Na 3 GM in 0.9 % Sodium Chloride 100 ML IV ×2 (02:46→05:51)
[2023-04-16 06:58] LABS: Basophils Percent Auto 0.2 % (0-2); Eosinophils Absolute Auto 0.2 X10*3/uL (0.0-0.4); Eosinophils Percent Auto 1.2 % (0-4); Hematocrit 41.5 % (42.0-52.0); Hemoglobin 13.4 g/dl (14.0-18.0); Imm Gran Abs Auto 0.17 X10*3/uL (0.00-0.03); Imm Gran Pct Auto 0.9 % (0.0-0.4); Lymphocytes Absolute Auto 0.7 X10*3/uL (1.2-4.9); Lymphocytes Percent Auto 3.8 % (20-40); MANUAL DIFF FLAG SCAN; Mean Corpuscular HGB Conc 32.3 g/dl (31.0-36.0); Mean Corpuscular Hemoglobin 29.9 pg (27.0-33.0); Mean Corpuscular Volume 92.6 fL (80.0-98.0); Mean Platelet Volume 9.4 fL (9.4-12.4); Monocytes Absolute Auto 2.1 X10*3/uL (0.1-1.2); Monocytes Percent Auto 10.9 % (2-11); Neutrophils Absolute Auto 15.6 x10*3/uL (2.0-8.3); Platelet Count 275 X10*3/uL (160-400); Red Blood Count 4.48 X10*6/uL (4.60-5.80); Red Cell Distribution Width 13.1 % (11.0-16.0); SCAN SMEAR FLAG 1; White Blood Count 18.8 X10*3/uL (4.8-10.8)
[2023-04-16 07:16] LABS: Anion Gap 12 (12-20); Blood Urea Nitrogen 18 mg/dL (9-16); Calcium 8.9 mg/dL (8.4-10.2); Carbon Dioxide 25 mmol/L (22-29); Chloride 107 mmol/L (96-108); Creatinine Clr Calc Pharmacy 54.2; Estimated Glomerular Filt Rate > 60; Glucose Random 96 mg/dL (60-115); Potassium 4.1 mmol/L (3.3-5.1); Sodium 140 mmol/L (135-145)
[2023-04-16 07:35] LABS: SLIDE REVIEW VERIFIED
--- NOTE | 2023-04-16 09:09 | P.PNIM_ITS ---
Subjective Subjective Date of Service: 04/16/23 Interval History: tired Physical Exam Vital Signs: Vital Signs: Last Vital Signs Temp 98.3 F 04/16/23 07:33 Pulse 89 04/16/23 07:33 Resp 17 04/16/23 07:33 BP 148/110 H 04/16/23 07:33 Pulse Ox 97 04/16/23 07:33 O2 Del Method Nasal Cannula 04/16/23 07:33 O2 Flow Rate 3 04/16/23 07:33 Oxygen Flow Rate 2 04/15/23 21:41 BMI result Body Mass Index 17.7 frail, ill appearing, crackles Objective Data Active Medications Acetaminophen (Acetaminophen 325 Mg Tablet) 650 mg PO Q6H PRN PRN Reason: Pain, Mild (Pain Scale 1-3) Acetaminophen (Acetaminophen Supp 650 Mg Supp.Rect) 650 mg MS Q6H PRN PRN Reason: Pain, Mild (Pain Scale 1-3) Carbidopa/Levodopa (Carbidopa/Levodopa 25/100 Tablet) 2 tab PO TID@0800,1200,2100 [facility] Digoxin (Digoxin 0.125 Mg Tablet) 0.125 mg PO Q2D [facility] Empagliflozin (Empagliflozin 10 Mg Tablet) 10 mg PO DAILY [facility] Enoxaparin Sodium (Enoxaparin Sodium 40 Mg/0.4 Ml Syringe) 40 mg SUBCUT Q24H [facility] Escitalopram Oxalate (Escitalopram Oxalate 5 Mg Tablet) 5 mg PO DAILY [facility] Gabapentin (Gabapentin 100 Mg Capsule) 100 mg PO DAILY [facility] Gabapentin (Gabapentin 300 Mg Capsule) 300 mg PO BEDTIME [facility] Ceftriaxone Sodium 1 gm/ (Sodium Chloride) 50 mls @ 100 mls/hr IV Q24H [facility] Lisinopril (Lisinopril 10 Mg Tablet) 10 mg PO DAILY [facility]; Protocol Melatonin (Melatonin 3 Mg Tablet) 6 mg PO BEDTIME PRN PRN Reason: Insomnia Melatonin (Melatonin 3 Mg Tablet) 3 mg PO BEDTIME PRN PRN Reason: Sleep Metoprolol Succinate (Metoprolol Succinate Er 100 Mg Tab.Er.24h) 100 mg PO DAILY [facility]; Protocol Ondansetron HCl (Ondansetron Hcl 4 Mg/2 Ml Vial) 4 mg IVPUSH Q8H PRN PRN Reason: Nausea and Vomiting Quetiapine Fumarate (Quetiapine Fumarate 25 Mg Tablet) 25 mg PO BEDTIME [facility] Ropinirole HCl (Ropinirole Hcl 0.25 Mg Tablet) 0.25 mg PO BEDTIME [facility] Sodium Chloride (0.9 % Sodium Chloride Flush 3 Ml Syringe) 3 ml IVFLUSH QSHIFT STE[facility] Last Admin: 04/15/23 23:16 Dose: Not Given Documented By: MARINO Non-Admin Reason: IV Running Labs 04/16/23 06:20 04/16/23 06:20 Labs: Laboratory Results - last 24 hr 04/15/23 04/15/23 04/15/23 22:01 22:01 22:01 MCV 90.3 MCH 29.7 MCHC 32.9 RDW 13.1 Plt Count 282 MPV 9.0 L Immature Gran % (Auto) Cancelled Neut % (Auto) Cancelled Lymph % (Auto) Cancelled [place] % (Auto) Cancelled Eos % (Auto) Cancelled Baso % (Auto) Cancelled Lymph # (Auto) Cancelled [place] # (Auto) Cancelled Eos # (Auto) Cancelled Baso # (Auto) Cancelled Abs Immat Gran (auto) Cancelled Absolute Neuts (auto) Cancelled Absolute Nucleated RBC 0.000 Nucleated RBC % (auto) 0.0 Neutrophils % (Manual) 93 H Lymphocytes % (Manual) 3 L Monocytes % (Manual) 4 Abs Neuts (Manual) 17.0 H Lymphocytes # (Manual) 0.5 L Monocytes # (Manual) 0.7 Platelet Estimate NORMAL Plt Morphology Comment NORMAL RBC Morphology NORMAL Smear Tech's Comments Anion Gap 13 Estim Creat Clear Calc 48.3 Estimated GFR 55 Random Glucose 118 H Lactic Acid 1.0 Calcium 8.8 Total Bilirubin 0.7 AST 39 H ALT 6 Alkaline Phosphatase 112 Total Protein 6.7 Albumin 3.3 L Urine Color Urine Appearance Urine pH Ur Specific [place] Urine Protein Urine Glucose (UA) Urine Ketones Urine Blood Urine Nitrite Ur Leukocyte Esterase Urine RBC Urine WBC Ur Squamous Epith Cells Urine Bacteria Hyaline Casts COVID-19 (MIR) COVID-19 Clin Com 04/15/23 04/16/23 04/16/23 22:03 00:47 06:20 MCV 92.6 MCH 29.9 MCHC 32.3 RDW 13.1 Plt Count 275 MPV 9.4 Immature Gran % (Auto) 0.9 H Neut % (Auto) 83.0 H Lymph % (Auto) 3.8 L [place] % (Auto) 10.9 Eos % (Auto) 1.2 Baso % (Auto) 0.2 Lymph # (Auto) 0.7 L [place] # (Auto) 2.1 H Eos # (Auto) 0.2 Baso # (Auto) 0.0 Abs Immat Gran (auto) 0.17 H Absolute Neuts (auto) 15.6 H Absolute Nucleated RBC 0.000 Nucleated RBC % (auto) 0.0 Neutrophils % (Manual) Lymphocytes % (Manual) Monocytes % (Manual) Abs Neuts (Manual) Lymphocytes # (Manual) Monocytes # (Manual) Platelet Estimate Plt Morphology Comment RBC Morphology Smear Tech's Comments VERIFIED Anion Gap Estim Creat Clear Calc Estimated GFR Random Glucose Lactic Acid Calcium Total Bilirubin AST ALT Alkaline Phosphatase Total Protein Albumin Urine Color Yellow Urine Appearance Clear Urine pH 7.0 Ur Specific [place] >= 1.030 H Urine Protein 100 (2+) H Urine Glucose (UA) >=1000 H Urine Ketones Negative Urine Blood Large (3+) H Urine Nitrite Positive H Ur Leukocyte Esterase Negative Urine RBC 0-2 Urine WBC 0-5 Ur Squamous Epith Cells 3-5 Urine Bacteria 4+ Hyaline Casts 0-2 COVID-19 (MIR) Negative COVID-19 Clin Com See Note 04/16/23 06:20 MCV MCH MCHC RDW Plt Count MPV Immature Gran % (Auto) Neut % (Auto) Lymph % (Auto) [place] % (Auto) Eos % (Auto) Baso % (Auto) Lymph # (Auto) [place] # (Auto) Eos # (Auto) Baso # (Auto) Abs Immat Gran (auto) Absolute Neuts (auto) Absolute Nucleated RBC Nucleated RBC % (auto) Neutrophils % (Manual) Lymphocytes % (Manual) Monocytes % (Manual) Abs Neuts (Manual) Lymphocytes # (Manual) Monocytes # (Manual) Platelet Estimate Plt Morphology Comment RBC Morphology Smear Tech's Comments Anion Gap 12 Estim Creat Clear Calc 54.2 Estimated GFR > 60 Random Glucose 96 Lactic Acid Calcium 8.9 Total Bilirubin AST ALT Alkaline Phosphatase Total Protein Albumin Urine Color Urine Appearance Urine pH Ur Specific [place] Urine Protein Urine Glucose (UA) Urine Ketones Urine Blood Urine Nitrite Ur Leukocyte Esterase Urine RBC Urine WBC Ur Squamous Epith Cells Urine Bacteria Hyaline Casts COVID-19 (MIR) COVID-19 Clin Com Assessment and Plan (1) Atrial fibrillation with RVR: Status: Acute Plan 68M PMH paroxysmal atrial fibrillation, chronic systolic CHF, Parkinson's presented with fever Sepsis and acute hypoxic respiratory failure and acute metabolic encephalopathy due to aspiration pneumonia and urinary tract infection IV ceftriaxone, follow-up cultures, 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 Quality Stroke Does the patient have a stroke diagnosis?: No VTE Prior VTE?: No VTE Risk Level:: Medical - moderate - high VTE Device Contraindication: Treatment Not Indicated VTE Drug Contraindication: N/A - Med Ordered
[2023-04-16] MEDS: Digoxin 0.125 MG TABLET PO (09:43)
[2023-04-16] MEDS: Enoxaparin Sodium 40 MG/0.4 ML SYRINGE SUBCUT (09:43)
[2023-04-16] MEDS: Escitalopram Oxalate 5 MG TABLET PO (09:43)
[2023-04-16] MEDS: Carbidopa/Levodopa 25/100 TABLET 2 TAB PO ×3 (09:43→21:56)
[2023-04-16] MEDS: lisinopriL 10 MG TABLET PO (09:44)
[2023-04-16] MEDS: Metoprolol Succinate ER 100 MG TAB.ER.24H PO (09:44)
[2023-04-16] MEDS: Empagliflozin 10 MG TABLET PO (09:44)
[2023-04-16] MEDS: 0.9 % Sodium Chloride Flush 3 ML SYRINGE IVFLUSH ×3 (09:46→21:57)
--- NOTE | 2023-04-16 10:09 | PHA.MEDREC ---
Pharmacy Consult ? Medication Reconciliation Med Rec Reviewed . Unable to confirm Gabapentin 100 mg dose with patient . Contacted provider and agree to keep at 100 mg in the morning and 300 mg at bedtime. Pharmacy has completed the medication reconciliation.
[2023-04-16] MEDS: Gabapentin 100 MG CAPSULE PO (10:44)
--- NOTE | 2023-04-16 14:39 | MHC.CLN ---
NUTRITION DIET=PUREE WITH NECTAR THICK LIQUIDS. ASPIRATION PRECAUTIONS AND 1:1 ASSIST. LIMITED PO INTAKE. ADDING THRIVE FORTIFIED ICE CREAM TID. PROVIDES 810 KCALS, 27 G PROTEIN. SKIN WITH STAGE I TO BUTTOCKS. NUTRITION DX NON SEVERE MALNUTRITION WITH MILD DEPLETION OF BODY FAT AND MUSCLE MASS NOTED. FOLLOW FOR INTAKE AND DIET TOLERANCE/ADVANCEMENT. SEE CLINICAL NUTRITION ASSESSMENT 04/16/23.
--- NOTE | 2023-04-16 14:43 | MHC.SL.SWA ---
Addendum entered and electronically signed by BRYCE Nguyễn 04/18/23 12:19: Clarify recommendation: pureed solids (NDD1) Original Note: Risk of Aspiration Due to: Lethargy History of Pneumonia Poor PO Intake Reduced Cognition Wheelchair bound Dysphasia Diet Status: DOWNGRADE Liquid Consistency and Strategies for Safe Swallow: Liquid Intake Recommendation: [place] Thick Liquid Intake Strategies: No Straws Liquids by Teaspoon Only Solid Food Consistency: Dietary Recommendations: Pureed (NDD1) Oral Medication Intake: Crushed with Puree Please contact the pharmacy regarding appropriate crushable or liquid drug formulations that are available whenever modified delivery is recommended. Compensatory Strategies and Precautions to be Taken for Safe Swallow: Sitting Upright (90 deg) No Straw Liquids from Spoon Alternate liquids and solids Supervision While Eating and Drinking for Safe Swallow: Total Assistance (1:1) Swallowing Recommended Treatments: Compens. Strategy Educat. Recommendation for Speech: Outpatient Speech Therapy Inpatient Speech Therapy Comment: Upon conversation w/ patient's partner, due to inconsistency of mental status during exam, recommend PUREE solids (NDD2). Recommend NECTAR thick liquid ([place] ONLY) and pills CRUSHED in PUREE. Patient requires 1-1 assistance. Patient must be engaged w/ PO to feed. Do not feed if lethargic. Aspiration precautions apply. JOB COACH to follow and upgrade diet when/if warranted. RN, RD, and MD notified via [employer]. Pest Control Technician Clinican/Clinical Fellow: No Supervisory Statement: I have reviewed and agree with the student/clinical fellow's documentation: No Speech Language Pathologist: Martha Olvera M.A., [facility]-JOB COACH
--- NOTE | 2023-04-16 14:57 | MHC.CM.PN ---
CM CALLED PTS S/O TERRA [phone] PT LIVES WITH TERRA AND IS DEPENDENT FOR CARE PT IS ACTIVE WITH TERESA ALBRECHTA AND MOW TERRA ALSO PRIVATELY PAYS FOR CARE WHILE SHE IS WORKING PT REQUIRES A WHEEL CHAIR FOR MOBILITY HCP AND YG ON FILE PCP: [facility] IMM DELIVERED DCP: [facility] TRANSPORT
[2023-04-16] MEDS: Acetaminophen 325 MG TABLET 650 MG PO (15:50)
[2023-04-16] MEDS: cefTRIAXone sodium 1 GM in 0.9 % Sodium Chloride 50 ML IV (21:56)
[2023-04-16] MEDS: rOPINIRole HCL 0.25 MG TABLET PO (21:56)
[2023-04-16] MEDS: QUEtiapine Fumarate 25 MG TABLET PO (21:56)
[2023-04-16] MEDS: Gabapentin 300 MG CAPSULE PO (21:56)
[2023-04-17 03:51] VITALS: BP 124/88; PULSE 101; RESP 18; TEMP 36; O2SAT 90
[2023-04-17 07:13] LABS: Hematocrit 39.5 % (42.0-52.0); Hemoglobin 12.4 g/dl (14.0-18.0); Mean Corpuscular HGB Conc 31.4 g/dl (31.0-36.0); Mean Corpuscular Hemoglobin 29.7 pg (27.0-33.0); Mean Corpuscular Volume 94.5 fL (80.0-98.0); Mean Platelet Volume 9.5 fL (9.4-12.4); Platelet Count 236 X10*3/uL (160-400); Red Blood Count 4.18 X10*6/uL (4.60-5.80); Red Cell Distribution Width 13.2 % (11.0-16.0); White Blood Count 12.6 X10*3/uL (4.8-10.8)
[2023-04-17 07:29] LABS: Anion Gap 10 (12-20); Blood Urea Nitrogen 21 mg/dL (9-16); Calcium 8.5 mg/dL (8.4-10.2); Carbon Dioxide 27 mmol/L (22-29); Chloride 108 mmol/L (96-108); Creatinine Clr Calc Pharmacy 56.5; Estimated Glomerular Filt Rate > 60; Glucose Fasting 85 mg/dL (60-99); Potassium 3.9 mmol/L (3.3-5.1); Sodium 141 mmol/L (135-145)
[2023-04-17 07:32] VITALS: BP 138/77; PULSE 91; RESP 20; TEMP 36.3; O2SAT 100
[2023-04-17] MEDS: Carbidopa/Levodopa 25/100 TABLET 2 TAB PO ×3 (08:57→22:01)
[2023-04-17] MEDS: lisinopriL 10 MG TABLET PO (08:57)
[2023-04-17] MEDS: Metoprolol Succinate ER 100 MG TAB.ER.24H PO (08:57)
[2023-04-17] MEDS: Enoxaparin Sodium 40 MG/0.4 ML SYRINGE SUBCUT (08:57)
[2023-04-17] MEDS: Empagliflozin 10 MG TABLET PO (08:57)
[2023-04-17] MEDS: Escitalopram Oxalate 5 MG TABLET PO (08:57)
[2023-04-17] MEDS: Gabapentin 100 MG CAPSULE PO (08:57)
[2023-04-17] MEDS: 0.9 % Sodium Chloride Flush 3 ML SYRINGE IVFLUSH (08:58)
--- NOTE | 2023-04-17 09:01 | HO.PM.IMPN ---
Subjective Subjective Date of Service: 04/17/23 Interval History: lethargic Physical Exam Vital Signs: Vital Signs: Last Vital Signs Temp 97.3 F 04/17/23 07:32 Pulse 91 04/17/23 07:32 Resp 20 04/17/23 07:32 BP 138/77 04/17/23 07:32 Pulse Ox 100 04/17/23 07:32 O2 Del Method Nasal Cannula 04/17/23 07:32 O2 Flow Rate 2 04/17/23 07:32 Oxygen Flow Rate 2 04/15/23 21:41 BMI result Body Mass Index 17.7 frail, ill appearing, crackles Objective Data Active Medications Acetaminophen (Acetaminophen 325 Mg Tablet) 650 mg PO Q6H PRN PRN Reason: Pain, Mild (Pain Scale 1-3) Last Admin: 04/16/23 15:50 Dose: 650 mg Documented By: DAVY Acetaminophen (Acetaminophen Supp 650 Mg Supp.Rect) 650 mg OR Q6H PRN PRN Reason: Pain, Mild (Pain Scale 1-3) Carbidopa/Levodopa (Carbidopa/Levodopa 25/100 Tablet) 2 tab PO TID@0800,1200,2100 [facility] Last Admin: 04/17/23 08:57 Dose: 2 tab Documented By: ALEX Digoxin (Digoxin 0.125 Mg Tablet) 0.125 mg PO Q2D [facility] Last Admin: 04/16/23 09:43 Dose: 0.125 mg Documented By: DAVY Empagliflozin (Empagliflozin 10 Mg Tablet) 10 mg PO DAILY [facility] Last Admin: 04/17/23 08:57 Dose: 10 mg Documented By: ALEX Enoxaparin Sodium (Enoxaparin Sodium 40 Mg/0.4 Ml Syringe) 40 mg SUBCUT Q24H [facility] Last Admin: 04/17/23 08:57 Dose: 40 mg Documented By: ALEX Escitalopram Oxalate (Escitalopram Oxalate 5 Mg Tablet) 5 mg PO DAILY [facility] Last Admin: 04/17/23 08:57 Dose: 5 mg Documented By: ALEX Gabapentin (Gabapentin 100 Mg Capsule) 100 mg PO DAILY [facility] Last Admin: 04/17/23 08:57 Dose: 100 mg Documented By: ALEX Gabapentin (Gabapentin 300 Mg Capsule) 300 mg PO BEDTIME [facility] Last Admin: 04/16/23 21:56 Dose: 300 mg Documented By: CHELSEA Ceftriaxone Sodium 1 gm/ (Sodium Chloride) 50 mls @ 100 mls/hr IV Q24H [facility] Last Infusion: 04/16/23 23:00 Dose: 0 mls/hr Documented By: CHELSEA Lisinopril (Lisinopril 10 Mg Tablet) 10 mg PO DAILY [facility]; Protocol Last Admin: 04/17/23 08:57 Dose: 10 mg Documented By: ALEX Melatonin (Melatonin 3 Mg Tablet) 6 mg PO BEDTIME PRN PRN Reason: Insomnia Melatonin (Melatonin 3 Mg Tablet) 3 mg PO BEDTIME PRN PRN Reason: Sleep Metoprolol Succinate (Metoprolol Succinate Er 100 Mg Tab.Er.24h) 100 mg PO DAILY [facility]; Protocol Last Admin: 04/17/23 08:57 Dose: 100 mg Documented By: ALEX Ondansetron HCl (Ondansetron Hcl 4 Mg/2 Ml Vial) 4 mg IVPUSH Q8H PRN PRN Reason: Nausea and Vomiting Quetiapine Fumarate (Quetiapine Fumarate 25 Mg Tablet) 25 mg PO BEDTIME [facility] Last Admin: 04/16/23 21:56 Dose: 25 mg Documented By: CHELSEA Ropinirole HCl (Ropinirole Hcl 0.25 Mg Tablet) 0.25 mg PO BEDTIME [facility] Last Admin: 04/16/23 21:56 Dose: 0.25 mg Documented By: CHELSEA Sodium Chloride (0.9 % Sodium Chloride Flush 3 Ml Syringe) 3 ml IVFLUSH QSHIFT [facility] Last Admin: 04/16/23 21:57 Dose: 3 ml Documented By: CHELSEA Labs 04/17/23 06:59 04/17/23 06:59 Labs: Laboratory Results - last 24 hr 04/17/23 04/17/23 06:59 06:59 MCV 94.5 MCH 29.7 MCHC 31.4 RDW 13.2 Plt Count 236 MPV 9.5 Absolute Nucleated RBC 0.000 Nucleated RBC % (auto) 0.0 Anion Gap 10 L Estim Creat Clear Calc 56.5 Estimated GFR > 60 Fasting Glucose 85 Calcium 8.5 Microbiology Microbiology Results: Microbiology 04/15/23 22:40 Urine Culture - Preliminary Urine clean catch - Urine mahajan top Staphylococcus species 04/15/23 22:01 Blood Culture - Preliminary Blood - Venous No growth after 24 hours. 04/15/23 22:01 Blood Culture - Preliminary Blood - Venous No growth after 24 hours. Assessment and Plan (1) Atrial fibrillation with RVR: Status: Acute Plan 68M PMH paroxysmal atrial fibrillation, chronic systolic CHF, Parkinson's presented with fever Sepsis and acute hypoxic respiratory failure and acute metabolic encephalopathy due to aspiration pneumonia and urinary tract infection continue IV ceftriaxone, follow-up cultures, sheet roller operator appreciated - downgraded to puree solids, thin liquids Paroxysmal atrial fibrillation Toprol, digoxin, avoid diltiazem, not on anticoagulation due to frequent fall Chronic systolic CHF Does not appear to be volume overloaded at this time Parkinson's Sinemet DVT prophylaxis with Lovenox Full code reason for continued hospitalization:hypoxia, encephalopathy Time Spent With Patient Time: Total time managing care of this patient today ____ minutes. Quality Stroke Does the patient have a stroke diagnosis?: No VTE Prior VTE?: No VTE Risk Level:: Medical - moderate - high VTE Device Contraindication: Treatment Not Indicated VTE Drug Contraindication: N/A - Med Ordered
[2023-04-17 11:15] VITALS: BP 104/57; PULSE 80; RESP 20; TEMP 36.9; O2SAT 97
[2023-04-17 15:46] VITALS: BP 116/69; PULSE 89; RESP 17; TEMP 36.7; O2SAT 97
--- NOTE | 2023-04-17 15:49 | PC.NURSE ---
Pt is alert to self only speech quiet. CAREY to command with generalized weakness, +pp bilat no edema noted. LS dim bases occasional loose cough, patient encouraged to cough and deep breath. Afib on tele. BS+X4 abdomen soft non-tender denies nausea/vomiting. [place] cath with concentrated urine. Denies pain/discomfort. 1:1 with meals good appetite. Significant other at bedside in afternoon updated by Dr Gregory at bedside. Bed in lowest position alarm for safety. Camera in place Will continue to monitor and report changes
[2023-04-17 19:13] VITALS: BP 118/65; PULSE 75; RESP 18; TEMP 36.7; O2SAT 95
[2023-04-17] MEDS: cefTRIAXone sodium 1 GM in 0.9 % Sodium Chloride 50 ML IV (21:59)
[2023-04-17] MEDS: QUEtiapine Fumarate 25 MG TABLET PO (22:01)
[2023-04-17] MEDS: Gabapentin 300 MG CAPSULE PO (22:01)
[2023-04-17] MEDS: rOPINIRole HCL 0.25 MG TABLET PO (22:01)
[2023-04-17 23:22] VITALS: BP 121/56; PULSE 82; RESP 18; TEMP 36.8; O2SAT 93
[2023-04-18] VITALS (7 sets, daily range): BP systolic 109–143; BP diastolic 58–81; PULSE 64–98; RESP 16–20; TEMP 36.2–36.7; O2SAT 96–98
[2023-04-18] MEDS: 0.9 % Sodium Chloride Flush 3 ML SYRINGE IVFLUSH ×3 (00:17→15:54)
[2023-04-18 07:35] LABS: Hematocrit 40.2 % (42.0-52.0); Hemoglobin 12.5 g/dl (14.0-18.0); Mean Corpuscular HGB Conc 31.1 g/dl (31.0-36.0); Mean Corpuscular Hemoglobin 29.5 pg (27.0-33.0); Mean Corpuscular Volume 94.8 fL (80.0-98.0); Mean Platelet Volume 9.6 fL (9.4-12.4); Platelet Count 275 X10*3/uL (160-400); Red Blood Count 4.24 X10*6/uL (4.60-5.80); Red Cell Distribution Width 13.3 % (11.0-16.0); White Blood Count 9.2 X10*3/uL (4.8-10.8)
[2023-04-18 07:48] LABS: Anion Gap 13 (12-20); Blood Urea Nitrogen 23 mg/dL (9-16); Calcium 8.6 mg/dL (8.4-10.2); Carbon Dioxide 28 mmol/L (22-29); Chloride 107 mmol/L (96-108); Estimated Glomerular Filt Rate > 60; Glucose Fasting 81 mg/dL (60-99); Potassium 3.9 mmol/L (3.3-5.1); Sodium 144 mmol/L (135-145)
[2023-04-18] MEDS: Escitalopram Oxalate 5 MG TABLET PO (08:06)
[2023-04-18] MEDS: Gabapentin 100 MG CAPSULE PO (08:06)
[2023-04-18] MEDS: Digoxin 0.125 MG TABLET PO (08:06)
[2023-04-18] MEDS: Carbidopa/Levodopa 25/100 TABLET 2 TAB PO ×3 (08:06→20:08)
[2023-04-18] MEDS: Metoprolol Succinate ER 100 MG TAB.ER.24H PO (08:06)
[2023-04-18] MEDS: Empagliflozin 10 MG TABLET PO (08:06)
[2023-04-18] MEDS: lisinopriL 10 MG TABLET PO (08:06)
[2023-04-18] MEDS: Enoxaparin Sodium 40 MG/0.4 ML SYRINGE SUBCUT (08:12)
[2023-04-18] MEDS: Doxycycline Monohydrate 100 MG CAPSULE PO ×2 (08:14→20:07)
--- NOTE | 2023-04-18 10:39 | MHC.CM.PN ---
Per 's approval and after CM discussion with /Meena @ [phone], anticipate dc tomorrow at noon via BLS and resumption of services. CM will follow.
--- NOTE | 2023-04-18 10:54 | MHC.CM.PN ---
Per ROUNDS discussion, Patient is anticipated to dc home tomorrow at noon via [facility]; [facility] has been notified. CM spoke with /Meena and met with Patient at bedside to address IMM (Original given to Patient and a copy placed on the chart).
--- NOTE | 2023-04-18 11:45 | MHC.CLN ---
F/U PT IS MODERATELY MALNOURISHED SEE CLINICAL NUTRITION ASSESSMENT 04/16/23 VARIABLE PO INTAKE RANGING FROM 0-100% DIET RX:PUREE WITH NECTAR THICK LIQUIDS-APPROPRIATE PT RECEIVING THRIVE FORTIFIED ICE CREAM TID PROVIDES 810 KCALS, 27 G PROTEIN SKIN WITH STAGE I TO BUTTOCKS MONITOR PO INTAKE CLOSELY AND ENCOURAGE SUPPLEMENT
--- NOTE | 2023-04-18 12:52 | P.PNIM_ITS ---
Subjective Subjective Date of Service: 04/18/23 Interval History: Seen and evaluated this morning Feels better today weaned down O2 To do PT Denies any fever or chills Review of Systems Review of Systems: Yes all other systems are reviewed and are negative Physical Exam Vital Signs: Vital Signs: Last Vital Signs Temp 97.6 F 04/18/23 10:59 Pulse 83 04/18/23 10:59 Resp 20 04/18/23 10:59 BP 126/78 04/18/23 10:59 Pulse Ox 96 04/18/23 10:59 O2 Del Method Room Air 04/18/23 10:59 O2 Flow Rate 2 04/17/23 11:15 Oxygen Flow Rate 2 04/15/23 21:41 BMI result Body Mass Index 17.7 Const: Other: Constitutional : Awake, interactive, not in distress Neck : Normal inspection, Supple Cardiovascular : RRR, no JVP, no lower extremity edema Respiratory : good bilateral air entry, basal fine crackles Gastrointestinal: soft, lax, Normal bowel sounds, Non tender Skin : Warm, Dry Neurological : Alert & oriented x3, No focal deficit Objective Data Active Medications Acetaminophen (Acetaminophen 325 Mg Tablet) 650 mg PO Q6H PRN PRN Reason: Pain, Mild (Pain Scale 1-3) Last Admin: 04/16/23 15:50 Dose: 650 mg Documented By: DAVY Acetaminophen (Acetaminophen Supp 650 Mg Supp.Rect) 650 mg TN Q6H PRN PRN Reason: Pain, Mild (Pain Scale 1-3) Carbidopa/Levodopa (Carbidopa/Levodopa 25/100 Tablet) 2 tab PO TID@0800,1200,2100 [facility] Last Admin: 04/18/23 11:34 Dose: 2 tab Documented By: JORGE Digoxin (Digoxin 0.125 Mg Tablet) 0.125 mg PO Q2D [facility] Last Admin: 04/18/23 08:06 Dose: 0.125 mg Documented By: JONATHON Doxycycline Monohydrate (Doxycycline Monohydrate 100 Mg Capsule) 100 mg PO BID [facility] Last Admin: 04/18/23 08:14 Dose: 100 mg Documented By: JONATHON Empagliflozin (Empagliflozin 10 Mg Tablet) 10 mg PO DAILY [facility] Last Admin: 04/18/23 08:06 Dose: 10 mg Documented By: JONATHON Enoxaparin Sodium (Enoxaparin Sodium 40 Mg/0.4 Ml Syringe) 40 mg SUBCUT Q24H [facility] Last Admin: 04/18/23 08:12 Dose: 40 mg Documented By: JONATHON Escitalopram Oxalate (Escitalopram Oxalate 5 Mg Tablet) 5 mg PO DAILY [facility] Last Admin: 04/18/23 08:06 Dose: 5 mg Documented By: JONATHON Gabapentin (Gabapentin 100 Mg Capsule) 100 mg PO DAILY [facility] Last Admin: 04/18/23 08:06 Dose: 100 mg Documented By: JONATHON Gabapentin (Gabapentin 300 Mg Capsule) 300 mg PO BEDTIME [facility] Last Admin: 04/17/23 22:01 Dose: 300 mg Documented By: ADELITA Ceftriaxone Sodium 1 gm/ (Sodium Chloride) 50 mls @ 100 mls/hr IV Q24H [facility] Last Infusion: 04/17/23 22:41 Dose: 0 mls/hr Documented By: ADELITA Lisinopril (Lisinopril 10 Mg Tablet) 10 mg PO DAILY [facility]; Protocol Last Admin: 04/18/23 08:06 Dose: 10 mg Documented By: JONATHON Melatonin (Melatonin 3 Mg Tablet) 6 mg PO BEDTIME PRN PRN Reason: Insomnia Melatonin (Melatonin 3 Mg Tablet) 3 mg PO BEDTIME PRN PRN Reason: Sleep Metoprolol Succinate (Metoprolol Succinate Er 100 Mg Tab.Er.24h) 100 mg PO DAILY [facility]; Protocol Last Admin: 04/18/23 08:06 Dose: 100 mg Documented By: JONATHON Ondansetron HCl (Ondansetron Hcl 4 Mg/2 Ml Vial) 4 mg IVPUSH Q8H PRN PRN Reason: Nausea and Vomiting Quetiapine Fumarate (Quetiapine Fumarate 25 Mg Tablet) 25 mg PO BEDTIME [facility] Last Admin: 04/17/23 22:01 Dose: 25 mg Documented By: ADELITA Ropinirole HCl (Ropinirole Hcl 0.25 Mg Tablet) 0.25 mg PO BEDTIME [facility] Last Admin: 04/17/23 22:01 Dose: 0.25 mg Documented By: ADELITA Sodium Chloride (0.9 % Sodium Chloride Flush 3 Ml Syringe) 3 ml IVFLUSH QSHIFT [facility] Last Admin: 04/18/23 08:07 Dose: 3 ml Documented By: HO.PHANLYM Labs 04/18/23 06:53 04/18/23 06:53 Labs: Laboratory Results - last 24 hr 04/18/23 04/18/23 06:53 06:53 MCV 94.8 MCH 29.5 MCHC 31.1 RDW 13.3 Plt Count 275 MPV 9.6 Absolute Nucleated RBC 0.000 Nucleated RBC % (auto) 0.0 Anion Gap 13 Estim Creat Clear Calc 57.0 Estimated GFR > 60 Fasting Glucose 81 Calcium 8.6 Microbiology Microbiology Results: Microbiology 04/15/23 22:40 Urine Culture - Final Urine clean catch - Urine mahajan top Staphylococcus epidermidis 04/15/23 22:01 Blood Culture - Preliminary Blood - Venous No growth after 48 hours. 04/15/23 22:01 Blood Culture - Preliminary Blood - Venous No growth after 48 hours. Assessment and Plan (1) Sepsis: Status: Acute (2) Acute UTI: Status: Acute (3) Pneumonia: Status: Acute Plan 68M PMH paroxysmal atrial fibrillation, chronic systolic CHF, Parkinson's presented with fever Sepsis and acute hypoxic respiratory failure and acute metabolic encephalopathy due to aspiration pneumonia and urinary tract infection continue IV ceftriaxone, follow-up cultures, ski molder appreciated - NDD2, thin liquids. might benefit from outpatient MBSS Paroxysmal atrial fibrillation Toprol, digoxin, avoid diltiazem, not on anticoagulation due to frequent fall Chronic systolic CHF Does not appear to be volume overloaded at this time Parkinson's Sinemet DVT prophylaxis with Lovenox Full code reason for continued hospitalization: encephalopathy pending safe discharge plan Time Spent With Patient Time: Total time managing care of this patient today ____ minutes. Quality Stroke Does the patient have a stroke diagnosis?: No VTE Prior VTE?: No VTE Risk Level:: Medical - moderate - high VTE Device Contraindication: Treatment Not Indicated VTE Drug Contraindication: N/A - Med Ordered
--- NOTE | 2023-04-18 13:06 | MHC.SL.SWA ---
Risk of Aspiration Due to: Lethargy History of Pneumonia Poor PO Intake Reduced Cognition Dysphasia Diet Status: UPGRADE solids Liquid Consistency and Strategies for Safe Swallow: Liquid Intake Recommendation: [address] [place] Thick Liquid Intake Strategies: Small Sips No Straws Solid Food Consistency: Dietary Recommendations: Grnd/Mech Altered (NDD2) Additional Modifications to Solid Foods: Moisten foods w/ sauce/gravy Oral Medication Intake: Crushed with Puree Please contact the pharmacy regarding appropriate crushable or liquid drug formulations that are available whenever modified delivery is recommended. Compensatory Strategies and Precautions to be Taken for Safe Swallow: Sitting Upright (90 deg) No Straw Small Bites and Sips Alternate Liquids/Solids Oral Check Avoid Specific Foods Supervision While Eating and Drinking for Safe Swallow: Total Assistance (1:1) Foods to Avoid: Overyly sticky, or runny puree solids. Swallowing Recommended Treatments: Compens. Strategy Educat. Recommendation for Speech: Outpatient Speech Therapy Inpatient Speech Therapy Recommend UPGRADE to GROUND solids (NDD2). Continue w/ NECTAR THICK liquids (via cup or teaspoon) and pills CRUSHE in PUREE. Pt requires 1-1 assistance. Aspiration precautions apply. Continue to AVOID straws. MINE ENGINEERING SUPERINTENDENT to continue to follow. D/t PD dx and hx PNA, patient may benefit from MBS (outpatient vs. inpatient). Recommend continued MINE ENGINEERING SUPERINTENDENT tx for dysphagia and voice. Marketing Operations Specialist Clinican/Clinical Fellow: No Supervisory Statement: I have reviewed and agree with the student/clinical fellow's documentation: N/A Speech Language Pathologist: Martha Olvera M.A., [facility]-MINE ENGINEERING SUPERINTENDENT
[2023-04-18] MEDS: rOPINIRole HCL 0.25 MG TABLET PO (20:07)
[2023-04-18] MEDS: QUEtiapine Fumarate 25 MG TABLET PO (20:07)
[2023-04-18] MEDS: Gabapentin 300 MG CAPSULE PO (20:08)
[2023-04-18] MEDS: cefTRIAXone sodium 1 GM in 0.9 % Sodium Chloride 50 ML IV (21:16)
[2023-04-19] MEDS: 0.9 % Sodium Chloride Flush 3 ML SYRINGE IVFLUSH ×3 (00:04→15:13)
[2023-04-19 03:16] VITALS: BP 140/87; PULSE 100; RESP 20; TEMP 36.1; O2SAT 95
--- NOTE | 2023-04-19 06:00 | MHC.PIE ---
P AFIB RVR I.PT IN AND OUT OF AFIB RVR,MORE CONTINUOUS THIS AM.ALSO HAD SHORT BURST OF SVT.BP 133/98.PT DENIES SYMPTOMS. NOTIFIED.ORDER FOR LOPRESSOR 5MG IV X 1 NOW GIVEN.PT UPDATED AND MED GIVEN. E.HR IMPROVED TO 98-104,REMAINS AFIB.NEXT SHIFT UPDATED.CONT TO MONITOR.
[2023-04-19] MEDS: Metoprolol Tartrate 5 MG/5 ML VIAL IVPUSH ×2 (06:55→09:24)
[2023-04-19 07:26] VITALS: BP 124/84; PULSE 98; RESP 20; TEMP 37.9; O2SAT 94
[2023-04-19] MEDS: Empagliflozin 10 MG TABLET PO (09:25)
[2023-04-19] MEDS: Carbidopa/Levodopa 25/100 TABLET 2 TAB PO ×3 (09:25→21:37)
[2023-04-19] MEDS: Metoprolol Succinate ER 100 MG TAB.ER.24H PO (09:25)
[2023-04-19] MEDS: Gabapentin 100 MG CAPSULE PO (09:25)
[2023-04-19] MEDS: Doxycycline Monohydrate 100 MG CAPSULE PO ×2 (09:25→21:37)
[2023-04-19] MEDS: Escitalopram Oxalate 5 MG TABLET PO (09:25)
[2023-04-19] MEDS: Enoxaparin Sodium 40 MG/0.4 ML SYRINGE SUBCUT (09:26)
--- NOTE | 2023-04-19 10:59 | MHC.CM.PN ---
Per MD, Patient's anticipated dc for today has been canceled. CM has put [facility] transport on, will call.
[2023-04-19 11:05] VITALS: BP 151/85; PULSE 104; RESP 18; TEMP 36.7; O2SAT 95
[2023-04-19] MEDS: Metoprolol Tartrate 25 MG TABLET PO ×4 (11:30→21:38)
[2023-04-19 11:53] LABS: Digoxin 0.5 ng/mL (0.8-2.0)
[2023-04-19 11:54] LABS: Anion Gap 12 (12-20); Blood Urea Nitrogen 21 mg/dL (9-16); Calcium 8.6 mg/dL (8.4-10.2); Carbon Dioxide 26 mmol/L (22-29); Chloride 109 mmol/L (96-108); Creatinine Clr Calc Pharmacy 73.1; Estimated Glomerular Filt Rate > 60; Glucose Random 96 mg/dL (60-115); Magnesium 2.4 mg/dL (1.6-2.6); Potassium 4.2 mmol/L (3.3-5.1); Sodium 143 mmol/L (135-145)
--- NOTE | 2023-04-19 12:24 | PM.CNCAR ---
History of Present Illness History of Present Illness Date of Service: 04/19/23 Requesting physician: Santiago Nava Consult reason: atrial fibrillation, troponin elevation and other (Cardiomyopathy) Chief complaint: Fever Narrative: I was consulted to see David in cardiology consultation today for atrial fibrillation management with rapid ventricular response. He is a 68-year-old male with advanced Parkinson's disease, systolic dysfunction with LVEF of 10-15%, permanent atrial fibrillation, present to the hospital with altered mental status was with sepsis syndrome most likely related to aspiration pneumonia and UTI. Patient has been treated for it. Patient still remains febrile to touch and complains of feeling feverish. He denies any chills. Denies any cardiac symptoms. Denies any shortness of breath, orthopnea, PND. Denies any palpitations, lightheadedness, syncope. No chest pain. He is admitted and being treated for sepsis with ceftriaxone. He is getting supportive care. Review of Systems Constitutional: Constitutional: Denies body ache(s), Denies chills and Reports fever(s) Eyes: Eyes: Reports no additional eye complaints Cardiovascular: Cardiovascular: Reports no additional cardiovascular complaints Respiratory: Respiratory: Reports no additional respiratory complaints Gastrointestinal: Gastrointestinal: Reports no additional gastrointestinal complaints Genitourinary: Genitourinary: Reports no additional male genitourinary complaints Psychiatric: Psychiatric: Reports no additional psychiatric complaints Endocrine: Endocrine: Reports no additional endocrine complaints [facility] Past Medical History Medical History Cardiomyopathy Atrial fibrillation with rapid ventricular response CHF (congestive heart failure) HTN (hypertension) Parkinson disease Family History Family History Mother CAD (coronary artery disease) Surgical History Surgical History H/O spinal fusion Social History Social History Household Members: Unknown / Unable to assess Housing: Unknown / Unable to assess Do you presently have visiting nurse or other home services: Yes Unable to assess alcohol history related to: Unknown Alcohol intake: never Patient Tobacco Use Status: Former Tobacco user e-Cigarette/Vaping Use: Never Used Use of substances other than those prescribed or required for medical reasons: Unable to respond Substance Use Type: Marijuana Currently Displaying Signs/Symptoms of Drug Intoxication Withdrawal: No Advance Directives: Yes Advance Directives on File: Yes Advance Directives Date on File: 12/27/21 Nutrition Risks: On aspiration precautions service: No Current occupational status: retired Meds Allergies Allergy/AdvReac Type Severity Reaction Status Date / Time No Known Allergies Allergy Verified 03/15/23 18:56 Active Medications: Current Medications Acetaminophen (Acetaminophen 325 Mg Tablet) 650 mg PO Q6H PRN PRN Reason: Pain, Mild (Pain Scale 1-3) Last Admin: 04/16/23 15:50 Dose: 650 mg Acetaminophen (Acetaminophen Supp 650 Mg Supp.Rect) 650 mg ME Q6H PRN PRN Reason: Pain, Mild (Pain Scale 1-3) Carbidopa/Levodopa (Carbidopa/Levodopa 25/100 Tablet) 2 tab PO TID@0800,1200,2100 [facility] Last Admin: 04/19/23 11:30 Dose: 2 tab Digoxin (Digoxin 0.125 Mg Tablet) 0.125 mg PO Q2D [facility] Last Admin: 04/18/23 08:06 Dose: 0.125 mg Doxycycline Monohydrate (Doxycycline Monohydrate 100 Mg Capsule) 100 mg PO BID [facility] Last Admin: 04/19/23 09:25 Dose: 100 mg Empagliflozin (Empagliflozin 10 Mg Tablet) 10 mg PO DAILY [facility] Last Admin: 04/19/23 09:25 Dose: 10 mg Enoxaparin Sodium (Enoxaparin Sodium 40 Mg/0.4 Ml Syringe) 40 mg SUBCUT Q24H [facility] Last Admin: 04/19/23 09:26 Dose: 40 mg Escitalopram Oxalate (Escitalopram Oxalate 5 Mg Tablet) 5 mg PO DAILY [facility] Last Admin: 04/19/23 09:25 Dose: 5 mg Gabapentin (Gabapentin 100 Mg Capsule) 100 mg PO DAILY [facility] Last Admin: 04/19/23 09:25 Dose: 100 mg Gabapentin (Gabapentin 300 Mg Capsule) 300 mg PO BEDTIME [facility] Last Admin: 04/18/23 20:08 Dose: 300 mg Ceftriaxone Sodium 1 gm/ (Sodium Chloride) 50 mls @ 100 mls/hr IV Q24H [facility] Last Infusion: 04/18/23 21:56 Dose: Infused Lisinopril (Lisinopril 10 Mg Tablet) 10 mg PO DAILY [facility]; Protocol Last Admin: 04/19/23 09:27 Dose: Not Given Melatonin (Melatonin 3 Mg Tablet) 6 mg PO BEDTIME PRN PRN Reason: Insomnia Melatonin (Melatonin 3 Mg Tablet) 3 mg PO BEDTIME PRN PRN Reason: Sleep Metoprolol Succinate (Metoprolol Succinate Er 100 Mg Tab.Er.24h) 100 mg PO DAILY [facility]; Protocol Last Admin: 04/19/23 09:25 Dose: 100 mg Metoprolol Tartrate (Metoprolol Tartrate 25 Mg Tablet) 25 mg PO QID [facility]; Protocol Last Admin: 04/19/23 11:30 Dose: 25 mg Ondansetron HCl (Ondansetron Hcl 4 Mg/2 Ml Vial) 4 mg IVPUSH Q8H PRN PRN Reason: Nausea and Vomiting Quetiapine Fumarate (Quetiapine Fumarate 25 Mg Tablet) 25 mg PO BEDTIME [facility] Last Admin: 04/18/23 20:07 Dose: 25 mg Ropinirole HCl (Ropinirole Hcl 0.25 Mg Tablet) 0.25 mg PO BEDTIME [facility] Last Admin: 04/18/23 20:07 Dose: 0.25 mg Sodium Chloride (0.9 % Sodium Chloride Flush 3 Ml Syringe) 3 ml IVFLUSH [facility] Last Admin: 04/19/23 09:27 Dose: 3 ml Home Medications Medication Instructions Recorded Confirmed Last Taken Type carbidopa 25 mg-levodopa 100 mg 2 tab PO TID@0800,1200,2100 12/23/21 04/15/23 12/26/22 History tablet gabapentin 100 mg capsule 100 mg PO DAILY 12/23/21 04/15/23 12/26/22 History gabapentin 300 mg capsule 300 mg PO BEDTIME 12/23/21 04/15/23 12/25/22 History lisinopril 10 mg tablet 10 mg PO DAILY 12/23/21 04/15/23 12/26/22 History melatonin 3 mg tablet 3 mg PO BEDTIME PRN Sleep 12/23/21 04/15/23 Unknown History escitalopram oxalate 5 mg tablet 5 mg PO DAILY 04/10/23 04/15/23 Unknown History quetiapine 25 mg tablet 25 mg PO BEDTIME 04/10/23 04/15/23 Unknown History ropinirole 0.25 mg tablet 0.25 mg PO BEDTIME 04/10/23 04/15/23 Unknown History Physical Exam Vital Signs: Vital Signs: Last Vital Signs Temp 98.0 F 04/19/23 11:05 Pulse 104 H 04/19/23 11:05 Resp 18 04/19/23 11:05 BP 151/85 H 04/19/23 11:05 Pulse Ox 95 04/19/23 11:05 O2 Del Method Room Air 04/19/23 11:05 O2 Flow Rate 2 04/17/23 11:15 Oxygen Flow Rate 2 04/15/23 21:41 BMI result Body Mass Index 17.7 Const: General: cooperative, comfortable, no acute distress, alert and awake Nutritional Appearance: cachectic Orientation/consciousness: patient oriented x3 HEENT: Head: Yes normocephalic and Yes atraumatic Neck: Neck: Yes trachea midline, Yes supple and Yes no JVD Resp: Effort & Inspection: decreased respiratory effort Auscultation: no wheezes and diminished lung sounds Cardio: Jugular venous distension: no JVD Palpation: abnormal PMI displaced PMI Rate: tachycardic Rhythm: abnormal rhythm irregularly irregular Heart sounds: S1 normal heart sound present, S2 normal heart sound present, no click, no gallops and no murmurs GI: Auscultation: normal bowel sounds Skin: General skin exam: no rashes or lesions noted Neuro: General: patient oriented x3 and no focal motor deficits Extrem: General: Yes no clubbing, cyanosis or edema Objective Labs and Meds 04/18/23 06:53 04/19/23 10:52 Lab results: Laboratory Results - last 24 hr 04/19/23 10:52 Sodium 143 Potassium 4.2 Chloride 109 H Carbon Dioxide 26 Anion Gap 12 BUN 21 H Creatinine 0.89 Estim Creat Clear Calc 73.1 Estimated GFR > 60 Random Glucose 96 Calcium 8.6 Magnesium 2.4 Digoxin 0.5 L Assessment and Plan (1) Atrial fibrillation with RVR: Status: Acute Atrial fibrillation with rapid ventricular response related to underlying sepsis syndrome. If rate becomes difficult control can use digoxin 0.25 mg IV q.6 x3 doses. Agree with metoprolol 25 mg q.6 hours and maximizing as tolerated. Patient is currently not on oral anticoagulation therapy but should be to reduce risk of thromboembolic complication especially if he is now more bed-bound. Continue treat underlying sepsis syndrome aggressively. (2) Cardiomyopathy: Status: Acute Cardiomyopathy without any obvious signs of heart failure. Continue neurohormonal modulation with metoprolol and lisinopril. Can not maximize lisinopril therapy if blood pressure remains difficult to control. Can give him fluid resuscitation need be for sepsis syndrome at this point time. Monitor for signs and symptoms of heart failure. Continue rate control approach as above. Will sign of the case at this point time. Thank you for allowing me to partake in his care Time Spent With Patient Time: Total time managing care of this patient today ____ minutes. Procedures Date of Service Date of Service: 04/19/23
[2023-04-19 12:25] LABS: Appearance Urine Clear; Color Urine Yellow; Glucose Urine UA >=1000 mg/dL (Negative); Leukocyte Esterase Urine Negative (Negative); Nitrite Urine Negative (Negative); PH 6.5 (5.0-9.0); Specific Gravity - Urine 1.025 (1.005-1.025); UMIC TRIGGER UACC YES; Urine Blood Small (1+) (Negative); Urine Ketones Negative (Negative); Urine Protein 100 (2+) mg/dL (Neg-Trace)
--- NOTE | 2023-04-19 12:52 | MHC.CM.PN ---
CM spoke with /HCP/Meena @ [phone] and informed her that anticipated dc to home today has been canceled.CM will follow.
[2023-04-19 13:21] LABS: Bacteria Urine None Seen (None Seen); Hyaline Casts Urine 0-2 /LPF (0-2); RBC Urine 0-2 /HPF (0-2); Squamous Epithelial Cell Urine 0-2 /HPF (0-2); UACC Culture Trigger YES
--- NOTE | 2023-04-19 14:32 | MHC.SL.SWA ---
Speech Pathologist Impression: Risk of Aspiration Due to: Lethargy History of Pneumonia Poor PO Intake Reduced Cognition Dysphasia Diet Status: Recommend continue on Ground Mechanical/Altered, Herman Thick Liquids, Pills crushed in puree. Liquid Consistency and Strategies for Safe Swallow: Liquid Intake Recommendation: [place] Thick Liquid Intake Strategies: Small Sips No Straws Solid Food Consistency: Dietary Recommendations: Grnd/Mech Altered (NDD2) Additional Modifications to Solid Foods: Moisten foods w/ sauce/gravy Oral Medication Intake: Crushed with Puree Please contact the pharmacy regarding appropriate crushable or liquid drug formulations that are available whenever modified delivery is recommended. Compensatory Strategies and Precautions to be Taken for Safe Swallow: Sitting Upright (90 deg) No Straw Small Bites and Sips Alternate Liquids/Solids Oral Check Avoid Specific Foods Supervision While Eating and Drinking for Safe Swallow: Total Assistance (1:1) Foods to Avoid: mixed consistencies Swallowing Recommended Treatments: Compens. Strategy Educat. Recommendation for Speech: Outpatient Speech Therapy Inpatient Speech Therapy Comment: Patient seen during lunch, being fed by CHILD PSYCHIATRIST. Patient was awake and alert, presents with somewhat mask like expression, and minimally verbalized during this session. Patient was fed and tolerated well ground diet consistency, with no clinical signs of aspiration on multiple presentations, mildly prolonged oral phase noted. Patient was observed being given controlled cup sip of nectar thick liquid, with timely oral phase and swallow noted. LICENSING REGISTRATION EXAMINER trial cup sip of water, with patient producing a timely swallow, however notable wet voice after swallow. Further trials were not attempted. Patient is tolerating current diet well, recommend continue on Ground Mechanical/Altered, Herman Thick Liquids, Pills crushed in puree. Frequency/Duration: Date Range for Service Req: Timeline to reassess: Therapeutic Riding Instructor Clinican/Clinical Fellow: No Supervisory Statement: I have reviewed and agree with the student/clinical fellow's documentation: N/A Speech Language Pathologist: Staci Castrejon M.A., CCC-LICENSING REGISTRATION EXAMINER
[2023-04-19] MEDS: Digoxin 0.5 MG/2 ML AMPUL 0.25 MG IVPUSH ×2 (15:12→21:38)
[2023-04-19 15:15] VITALS: BP 128/87; PULSE 81; RESP 20; TEMP 36.8; O2SAT 98
--- NOTE | 2023-04-19 16:32 | HO.PM.IMPN ---
Subjective Subjective Date of Service: 04/19/23 Interval History: Seen and evaluated this morning Feels better today went into Afib w RVR weaned down O2 to room air Denies any fever or chills Review of Systems Review of Systems: Yes all other systems are reviewed and are negative Physical Exam Vital Signs: Vital Signs: Last Vital Signs Temp 98.3 F 04/19/23 15:15 Pulse 81 04/19/23 15:15 Resp 20 04/19/23 15:15 BP 128/87 04/19/23 15:15 Pulse Ox 98 04/19/23 15:15 O2 Del Method Room Air 04/19/23 15:15 O2 Flow Rate 2 04/17/23 11:15 Oxygen Flow Rate 2 04/15/23 21:41 BMI result Body Mass Index 17.7 Const: Other: Constitutional : Awake, interactive, not in distress Neck : Normal inspection, Supple Cardiovascular :irregular irregular , no JVP, no lower extremity edema Respiratory : good bilateral air entry, basal fine crackles Gastrointestinal: soft, lax, Normal bowel sounds, Non tender Skin : Warm, Dry Neurological : Alert & oriented x3, No focal deficit Objective Data Active Medications Acetaminophen (Acetaminophen 325 Mg Tablet) 650 mg PO Q6H PRN PRN Reason: Pain, Mild (Pain Scale 1-3) Last Admin: 04/16/23 15:50 Dose: 650 mg Documented By: DAVY Acetaminophen (Acetaminophen Supp 650 Mg Supp.Rect) 650 mg AR Q6H PRN PRN Reason: Pain, Mild (Pain Scale 1-3) Carbidopa/Levodopa (Carbidopa/Levodopa 25/100 Tablet) 2 tab PO TID@0800,1200,2100 [facility] Last Admin: 04/19/23 11:30 Dose: 2 tab Documented By: ANDRES Digoxin (Digoxin 0.125 Mg Tablet) 0.125 mg PO Q2D [facility] Last Admin: 04/18/23 08:06 Dose: 0.125 mg Documented By: JONATHON Digoxin (Digoxin 0.5 Mg/2 Ml Ampul) 0.25 mg IVPUSH Q6H [facility] Stop: 04/20/23 02:46 Last Admin: 04/19/23 15:12 Dose: 0.25 mg Documented By: ANDRES Doxycycline Monohydrate (Doxycycline Monohydrate 100 Mg Capsule) 100 mg PO BID [facility] Last Admin: 04/19/23 09:25 Dose: 100 mg Documented By: ANDRES Empagliflozin (Empagliflozin 10 Mg Tablet) 10 mg PO DAILY [facility] Last Admin: 04/19/23 09:25 Dose: 10 mg Documented By: ANDRES Enoxaparin Sodium (Enoxaparin Sodium 40 Mg/0.4 Ml Syringe) 40 mg SUBCUT Q24H [facility] Last Admin: 04/19/23 09:26 Dose: 40 mg Documented By: ANDRES Escitalopram Oxalate (Escitalopram Oxalate 5 Mg Tablet) 5 mg PO DAILY [facility] Last Admin: 04/19/23 09:25 Dose: 5 mg Documented By: ANDRES Gabapentin (Gabapentin 100 Mg Capsule) 100 mg PO DAILY [facility] Last Admin: 04/19/23 09:25 Dose: 100 mg Documented By: ANDRES Gabapentin (Gabapentin 300 Mg Capsule) 300 mg PO BEDTIME [facility] Last Admin: 04/18/23 20:08 Dose: 300 mg Documented By: ADELITA Ceftriaxone Sodium 1 gm/ (Sodium Chloride) 50 mls @ 100 mls/hr IV Q24H [facility] Last Infusion: 04/18/23 21:56 Dose: Infused Documented By: ADELITA Lisinopril (Lisinopril 10 Mg Tablet) 10 mg PO DAILY [facility]; Protocol Last Admin: 04/19/23 09:27 Dose: Not Given Documented By: ANDRES Non-Admin Reason: Physician Held Med Melatonin (Melatonin 3 Mg Tablet) 6 mg PO BEDTIME PRN PRN Reason: Insomnia Melatonin (Melatonin 3 Mg Tablet) 3 mg PO BEDTIME PRN PRN Reason: Sleep Metoprolol Succinate (Metoprolol Succinate Er 100 Mg Tab.Er.24h) 100 mg PO DAILY [facility]; Protocol Last Admin: 04/19/23 09:25 Dose: 100 mg Documented By: ANDRES Metoprolol Tartrate (Metoprolol Tartrate 25 Mg Tablet) 25 mg PO QID [facility]; Protocol Last Admin: 04/19/23 16:04 Dose: 25 mg Documented By: ANDRES Ondansetron HCl (Ondansetron Hcl 4 Mg/2 Ml Vial) 4 mg IVPUSH Q8H PRN PRN Reason: Nausea and Vomiting Quetiapine Fumarate (Quetiapine Fumarate 25 Mg Tablet) 25 mg PO BEDTIME [facility] Last Admin: 04/18/23 20:07 Dose: 25 mg Documented By: ADELITA Ropinirole HCl (Ropinirole Hcl 0.25 Mg Tablet) 0.25 mg PO BEDTIME [facility] Last Admin: 04/18/23 20:07 Dose: 0.25 mg Documented By: ADELITA Sodium Chloride (0.9 % Sodium Chloride Flush 3 Ml Syringe) 3 ml IVFLUSH QSHIFT [facility] Last Admin: 04/19/23 15:13 Dose: 3 ml Documented By: CTORRZ Labs 04/18/23 06:53 04/19/23 10:52 Labs: Laboratory Results - last 24 hr 04/19/23 04/19/23 10:52 11:47 Anion Gap 12 Estim Creat Clear Calc 73.1 Estimated GFR > 60 Random Glucose 96 Calcium 8.6 Magnesium 2.4 Urine Color Yellow Urine Appearance Clear Urine pH 6.5 Ur Specific Jackson 1.025 Urine Protein 100 (2+) H Urine Glucose (UA) >=1000 H Urine Ketones Negative Urine Blood Small (1+) H Urine Nitrite Negative Ur Leukocyte Esterase Negative Urine RBC 0-2 Urine WBC 6-10 H Ur Squamous Epith Cells 0-2 Urine Bacteria None Seen Hyaline Casts 0-2 Urine Yeast Present Digoxin 0.5 L Assessment and Plan (1) Sepsis: Status: Acute (2) Acute UTI: Status: Acute (3) Pneumonia: Status: Acute (4) Atrial fibrillation with RVR: Status: Acute Plan 68M PMH paroxysmal atrial fibrillation, chronic systolic CHF, Parkinson's presented with fever Sepsis and acute hypoxic respiratory failure and acute metabolic encephalopathy due to aspiration pneumonia and urinary tract infection continue IV ceftriaxone, Doxy negative cultures, plant chief appreciated - NDD2, thin liquids. might benefit from outpatient MBSS Paroxysmal atrial fibrillation w RvR Load Digoxin for low level Continue Toprol Continue digoxin, avoid diltiazem not on anticoagulation due to frequent fall Cardiology consult Chronic systolic CHF Does not appear to be volume overloaded at this time Parkinson's Sinemet DVT prophylaxis with Lovenox Full code reason for continued hospitalization: Afib rvr pending rate control and safe discharge plan Time Spent With Patient Time: Total time managing care of this patient today ____ minutes. Quality Stroke Does the patient have a stroke diagnosis?: No VTE Prior VTE?: No VTE Risk Level:: Medical - moderate - high VTE Device Contraindication: Treatment Not Indicated VTE Drug Contraindication: N/A - Med Ordered
[2023-04-19 19:03] VITALS: BP 124/88; PULSE 74; RESP 20; TEMP 36.6; O2SAT 96
[2023-04-19] MEDS: Gabapentin 300 MG CAPSULE PO (21:37)
[2023-04-19] MEDS: cefTRIAXone sodium 1 GM in 0.9 % Sodium Chloride 50 ML IV (21:37)
[2023-04-19] MEDS: QUEtiapine Fumarate 25 MG TABLET PO (21:38)
[2023-04-19] MEDS: rOPINIRole HCL 0.25 MG TABLET PO (21:38)
[2023-04-19] MEDS: Acetaminophen 325 MG TABLET 650 MG PO (21:55)
[2023-04-20] VITALS: BP 106/63; PULSE 68; RESP 20; TEMP 36.1; O2SAT 95
[2023-04-20] MEDS: Digoxin 0.5 MG/2 ML AMPUL 0.25 MG IVPUSH (01:29)
[2023-04-20] MEDS: 0.9 % Sodium Chloride Flush 3 ML SYRINGE IVFLUSH ×2 (01:30→08:14)
[2023-04-20 03:55] VITALS: BP 151/82; PULSE 67; RESP 18; TEMP 36.3; O2SAT 97
[2023-04-20] MEDS: Digoxin 0.125 MG TABLET PO (06:07)
[2023-04-20 07:37] VITALS: BP 145/71; PULSE 60; RESP 15; TEMP 36.1; O2SAT 96
[2023-04-20] MEDS: Escitalopram Oxalate 5 MG TABLET PO (08:13)
[2023-04-20] MEDS: Gabapentin 100 MG CAPSULE PO (08:13)
[2023-04-20] MEDS: Empagliflozin 10 MG TABLET PO (08:13)
[2023-04-20] MEDS: Doxycycline Monohydrate 100 MG CAPSULE PO (08:13)
[2023-04-20] MEDS: Enoxaparin Sodium 40 MG/0.4 ML SYRINGE SUBCUT (08:13)
[2023-04-20] MEDS: Carbidopa/Levodopa 25/100 TABLET 2 TAB PO ×2 (08:13→11:46)
[2023-04-20] MEDS: Metoprolol Succinate ER 100 MG TAB.ER.24H PO (08:13)
--- NOTE | 2023-04-20 10:42 | MHC.CM.PN ---
Per ROUNDS discussion, Patient is medically cleared for dc to home today/[facility] CM spoke with Patient's /HCP/Meena @ listed #, who has approved [facility] fiber picker time for today at 3PM. Last IMM addressed on 04/18/2023.
[2023-04-20 11:24] VITALS: BP 142/78; PULSE 85; RESP 18; TEMP 36.4; O2SAT 98
[2023-04-20] MEDS: Apixaban 5 MG TABLET PO (12:19)
--- NOTE | 2023-04-20 12:43 | PM.DS ---
DS: Providers Provider Date of Service: 04/20/23 Date of admission: 04/15/23 22:59 Primary care physician: Lachelle Simon MD Consults: 04/19/23 11:01 Consult to Cardiology Routine Consulting Provider: [facility] Cardiovascular Services Reason for consultation: CMP w Afib rvr for eval and rec. DS: Diagnosis Discharge Diagnosis (1) Sepsis: Status: Acute (2) Acute UTI: Status: Acute (3) Pneumonia: Status: Acute (4) Atrial fibrillation with RVR: Status: Acute DS: Summary Hospital Course Hospital Course: Admission note HPI This is a 68-year-old male with pertinent history of chronic congestive heart failure with reduced ejection fraction, paroxysmal atrial fibrillation not on anticoagulation, Parkinson's disease who was brought to the emergency department for evaluation of altered mentation and fever. Of note, patient was recently admitted on 04/10 and discharged on 04/15 for sirs likely due to viral illness. Cultures were negative, patient's symptoms resolved and he was discharged. Patient did not receive any antibiotics during previous hospital course. His beta-jimmy was titrated up for AFib with RVR. Unable to obtain any history from the patient. History obtained from ER provider and chart review. As per the daughter, she noticed that patient was confused prior to presentation and had a fever of 102 degrees F. she brought the patient for further evaluation and management. Unable to obtain review of systems. In the emergency department, white count found to be elevated and imaging concerning for bilateral pneumonia Hospital course # Sepsis and acute hypoxic respiratory failure and acute metabolic encephalopathy due to aspiration pneumonia and urinary tract infection treated with IV Ceftriaxone and Doxycycline as blood and urine cultures remained negative. # Swallowing problem. Evaluated by FARM EQUIPMENT MECHANIC APPRENTICE team - NDD2, thin liquids. might benefit from outpatient MBSS # Paroxysmal atrial fibrillation w RvR. Found to have low digoxin level. Loaded with Digoxin. resumed Toprol with good response. Evaluated by Chemical Research Technician who recommended blood thinners. Discussed with his who agreed to start Eliquis 5 mg bid , discussed possible side effects of bleeding and risk associated with falling. Continue Home medications Start Eliquis for stroke prevention Follow with CBC next week Continue Doxycycline and Ceftin as prescribed NDD2, thin liquids. might benefit from outpatient MBSS, can be arranged by PCP Time Spent with Patient Time attestation: Total time managing care of this patient today ____ minutes. Discharge coordination time: Greater than 30 minutes Quality: Safe Use of Opioids Does Pt have an Active Cancer Diagnosis on the Problem List?: No Quality: Stroke Does the patient have a stroke diagnosis?: No Physical Exam Vital Signs: Vital Signs: Last Vital Signs Temp 97.5 F 04/20/23 11:24 Pulse 85 04/20/23 11:24 Resp 18 04/20/23 11:24 BP 142/78 H 04/20/23 11:24 Pulse Ox 98 04/20/23 11:24 O2 Del Method Room Air 04/20/23 11:24 O2 Flow Rate 2 04/17/23 11:15 Oxygen Flow Rate 2 04/15/23 21:41 BMI result Body Mass Index 17.7 Const: Other: Constitutional : Awake, interactive, not in distress Neck : Normal inspection, Supple Cardiovascular :irregular irregular , no JVP, no lower extremity edema Respiratory : good bilateral air entry, basal fine crackles Gastrointestinal: soft, lax, Normal bowel sounds, Non tender Skin : Warm, Dry Neurological : Alert & oriented x3, No focal deficit DS: Data Data Completed and Pending Labs on day of discharge: Laboratory Results - last 24 hr 04/19/23 11:47 Urine Color Yellow Urine Appearance Clear Urine pH 6.5 Ur Specific [place] 1.025 Urine Protein 100 (2+) H Urine Glucose (UA) >=1000 H Urine Ketones Negative Urine Blood Small (1+) H Urine Nitrite Negative Ur Leukocyte Esterase Negative Urine RBC 0-2 Urine WBC 6-10 H Ur Squamous Epith Cells 0-2 Urine Bacteria None Seen Hyaline Casts 0-2 Urine Yeast Present Preliminary micro results at discharge 04/19/23 11:30 Urine Culture - Preliminary Urine Catheterized - Straight Catheter 04/15/23 22:01 Blood Culture - Preliminary Blood - Venous No growth after 48 hours. 04/15/23 22:01 Blood Culture - Preliminary Blood - Venous No growth after 48 hours. Imaging Chest x-ray: Radiologist's impression: ITS Impressions Chest X-Ray 04/15/23 22:45 IMPRESSION: Low lung volume. No acute abnormality of chest. Abdomen/Pelvis CT 04/15/23 23:03 IMPRESSION: 1. Small bilateral pleural effusions associated with bibasilar lung consolidation possibly atelectasis and/or infiltrate. 2. Soft tissue anasarca. 3. Nonobstructing 1 mm calculus upper pole left kidney 4. Diverticula of the descending and sigmoid colon without diverticulitis. 5. There is no acute intra-abdominal process. Fleischner guidelines were followed. Chest X-Ray 04/19/23 11:57 IMPRESSION: Left lower lobe atelectasis or pneumonia and small left pleural effusion, as on thoracic CT of 04/15/2023 Discharge Plan Discharge Anticipated Discharge Date/Time: 04/19/23 10:52 Patient Disposition: Home Health Service Discharge Diagnosis: Sepsis secondary to pneumonia and Urine infection Referrals: [facility] [Outside] - 1 Week Lachelle Simon MD [Primary Care Provider] - 1 Week Discharge Medications: New doxycycline monohydrate 100 mg Capsule 100 mg PO BID Qty: 12 0RF cefuroxime axetil 500 mg tablet 500 mg PO BID Qty: 12 0RF apixaban 5 mg tablet 5 mg PO BID Qty: 60 0RF Continued melatonin 3 mg Tablet 3 mg PO BEDTIME PRN (Reason: Sleep) lisinopril 10 mg Tablet 10 mg PO DAILY gabapentin 300 mg Capsule 300 mg PO BEDTIME gabapentin 100 mg Capsule 100 mg PO DAILY carbidopa-levodopa 25-100 mg Tablet 2 tab PO TID@0800,1200,2100 quetiapine 25 mg tablet 25 mg PO BEDTIME escitalopram oxalate 5 mg tablet 5 mg PO DAILY ropinirole 0.25 mg tablet 0.25 mg PO BEDTIME metoprolol succinate 100 mg Tablet Extended Release 24 Hr 100 mg PO DAILY Qty: 30 0RF Protocol: Hold for SBP/HR < HOLD for SBP < : 90 HOLD for HR < : 60 Jardiance 10 mg Tablet 10 mg PO DAILY Qty: 30 0RF digoxin 125 mcg (0.125 mg) tablet 125 mcg PO Q2D Qty: 30 0RF Discharge Orders: Discharge Order (Routine); Ordered 04/20/23 Ordered By: Santiago Nava Diet: NDD2: Mechanical soft Activity on Discharge: As tolerated Stand Alone Forms: Patient Portal Discharge page Other Ambulatory Orders: Complete Blood Count Auto Diff (Routine) Timeframe: 1 Week Facility: [facility] - Location: Laboratory Ordered By: Santiago Nava Care Plan Goals: Read below Health Concerns: Read below Plan of Treatment: Read below Assessment: You were admitted to the hospital for treatment of sepsis from aspiration pneumonia and urine infection. treated with IV antibiotics with good response. Developed rapid heart rate which was controlled with IV and oral medications as you were seen by video surveillance technician. Continue Home medications Start Eliquis for stroke prevention Follow with CBC next week Continue Doxycycline and Ceftin as prescribed
--- NOTE | 2023-04-20 15:04 | MHC.SL.SWA ---
Speech Pathologist Impression: Risk of aspiration, oropharyngeal dysphagia Risk of Aspiration Due to: Lethargy History of Pneumonia Poor PO Intake Reduced Cognition Dysphasia Diet Status: Recommend continue on Ground Mechanical/Altered, [place] Thick Liquids, Pills crushed in puree. Ice chips for comfort ok w/ NUMERICAL CONTROL MACHINE TOOL OPERATOR resaw machine operator supevision. Liquid Consistency and Strategies for Safe Swallow: Liquid Intake Recommendation: [place] Thick Liquid Intake Strategies: Small Sips No Straws Solid Food Consistency: Dietary Recommendations: Grnd/Mech Altered (NDD2) Additional Modifications to Solid Foods: Moisten foods w/ sauce/gravy Oral Medication Intake: Crushed with Puree Please contact the pharmacy regarding appropriate crushable or liquid drug formulations that are available whenever modified delivery is recommended. Compensatory Strategies and Precautions to be Taken for Safe Swallow: Sitting Upright (90 deg) No Straw Small Bites and Sips Alternate Liquids/Solids Oral Check Avoid Specific Foods Supervision While Eating and Drinking for Safe Swallow: Total Assistance (1:1) Foods to Avoid: mixed consistencies Swallowing Recommended Treatments: Compens. Strategy Educat. Recommendation for Speech: Outpatient Speech Therapy Inpatient Speech Therapy Licensed Marine Engineer Clinican/Clinical Fellow: No Supervisory Statement: I have reviewed and agree with the student/clinical fellow's documentation: N/A Speech Language Pathologist: Betty Aleman M.A., CCC-NUMERICAL CONTROL MACHINE TOOL OPERATOR
--- NOTE | 2023-04-20 15:09 | MHC.CM.PN ---
CM has informed Patient's /HCP/Meena @ listed # that ambulances are running very late.
[2023-04-20 15:56] VITALS: BP 143/86; PULSE 75; RESP 18; TEMP 36.4; O2SAT 97
== END 2023-04-20 16:10 | disposition home health service (06) | DRG 871 ==
LOC: HO.ED 22:11 → HO.EDOVER 23:45 → HO.IMC 04-16 00:11
PROVIDERS: Internal Medicine; Admitting Provider Student in an Organized Health Care Education/Training Program; Emergency Provider Internal Medicine; PCP Internal Medicine; Visit Provider Student in an Organized Health Care Education/Training Program
DX: A41.9 Sepsis, unspecified organism (principal); G93.41 Metabolic encephalopathy; J69.0 Pneumonitis due to inhalation of food and vomit; J96.01 Acute respiratory failure with hypoxia; I50.22 Chronic systolic (congestive) heart failure; N39.0 Urinary tract infection, site not specified; I42.9 Cardiomyopathy, unspecified; I48.0 Paroxysmal atrial fibrillation; G20 Parkinson's disease; Z20.822 Contact with and (suspected) exposure to COVID-19; Z87.891 Personal history of nicotine dependence; Z79.01 Long term (current) use of anticoagulants; Z79.899 Other long term (current) drug therapy
CPT/HCPCS: 36415; 71045; 74176; 80048; 80053; 80076; 80162; 81001; 81003; 83605; 83690; 83735; 83880; 84443; 84484; 85007; 85025; 85027; 85610; 87040; 87086; 87088; 87186; 87205; 87633; 87635; 92526; 92610; 93005; 93306; 97162; 99285; J0295; J0692; J0696; J1160; J1650

== ENCOUNTER → 2023-04-15 22:59 | Outpatient (BNV) | payer MEDICARE, SELFPAY | PROVIDERS: Admitting Provider Student in an Organized Health Care Education/Training Program; Emergency Provider Internal Medicine; PCP Internal Medicine; Visit Provider Internal Medicine Cardiovascular Disease | DX: I48.91 Unspecified atrial fibrillation (principal); I42.9 Cardiomyopathy, unspecified | CPT/HCPCS: 99222 ==

== ENCOUNTER → 2023-04-15 22:59 | Outpatient (BNV) | payer MEDICARE, SELFPAY | PROVIDERS: Admitting Provider Student in an Organized Health Care Education/Training Program; Emergency Provider Internal Medicine; PCP Internal Medicine; Visit Provider Student in an Organized Health Care Education/Training Program | DX: A41.9 Sepsis, unspecified organism (principal); I48.91 Unspecified atrial fibrillation; N39.0 Urinary tract infection, site not specified; J18.9 Pneumonia, unspecified organism | CPT/HCPCS: 99222; 99232; 99233; 99239 ==

== ENCOUNTER 2023-04-27 18:08 | Emergency (ER) | payer MEDICARE, SELFPAY ==
--- NOTE | ~2023-04-27 | CT_ITS ---
Examination: CT shoulder LT wo IV con Indication: dislocation Comparison: Images from earlier today Technique: Multiple serial thin slice helical CT scan images through the left shoulder were obtained. Soft tissue and bony algorithms were evaluated. Coronal and sagittal reformatted images through the shoulder were obtained on the technologist workstation. DLP 263. This CT examination was performed using dose optimization techniques as appropriate, variously including the following: *Automated exposure control *Adjustment of mA and/or kV according to patient size (this includes techniques or standardized protocols for targeted exams where dose is matched to indication/reason for exam; i.e. extremities or head) *Use of iterative reconstruction technique Findings: Note is again made of a superior fracture dislocation of the shoulder. The majority of the humeral head is positioned anteriorly and superiorly to the glenoid fossa. There is a cortical defect along the posterior aspect of the fracture with the osteochondral fragment seen along the posterior aspect of the glenohumeral joint space. Tiny well-corticated ossifications are present with joint space as well. Chronic appearing more degenerative changes are noted in the glenoid without associated acute glenoid fracture. Visualized proximal humerus is otherwise unremarkable. Multiple healed left-sided rib fractures with bony callus formation. Small left sided pleural effusion CT/CT shoulder LT wo IV con Impression: Superior fracture dislocation of the left shoulder with the majority of the humeral head positioned anteriorly and superiorly to the glenoid fossa. There is a small cortical defect along the posterior aspect of the humeral head with an osteochondral fragment seen along the posterior aspect of the glenohumeral joint space.
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
--- NOTE | ~2023-04-27 | XR_ITS ---
EXAMINATION: XR SHOULDER, LEFT CLINICAL INFORMATION: Fall COMPARISON: 11/07/2022 exam TECHNIQUE: 2 views of the left shoulder. FINDINGS: There is an anterior superior dislocation of the humeral head in relation to the glenoid fossa. The degree of dislocation appears similar to the 11/07/2022 study. Well-corticated ossification overlying the posterior glenohumeral joint space. Acromioclavicular joint within normal limits for size. Visualized left ribs unremarkable XR/XR shoulder LT min 2V IMPRESSION: Anterior superior dislocation of the humeral head in relation to the glenoid fossa.
[2023-04-27 18:27] VITALS: BP 147/81; PULSE 72; RESP 14; TEMP 36.4; O2SAT 98
[2023-04-27 18:31] VITALS: BP 136/88; BP 147/81; PULSE 64; PULSE 66; RESP 18; TEMP 36.4; O2SAT 94; O2SAT 98; BMI 19.1
--- NOTE | 2023-04-27 19:34 | ECG_ITS ---
Test Reason : FALL Blood Pressure : / mmHG Vent. Rate : 067 BPM Atrial Rate : 000 BPM P-R Int : 000 ms QRS Dur : 098 ms QT Int : 372 ms P-R-T Axes : 000 006 167 degrees QTc Int : [address] & T wave abnormality, consider lateral ischemia Abnormal ECG When compared with ECG of 15-APR-2023 21:42, QT has shortened Referred By: Arlin Parisi Electronically Signed By:JOSE A ROSAS
--- NOTE | 2023-04-27 19:47 | ED.FALL ---
HPI - Fall General Chief Complaint: Fall Stated Complaint: FALL Time Seen by Provider: 04/27/23 18:36 History of Present Illness HPI Narrative: Patient is a 68-year-old male with a history of congestive heart failure. History of cardiomyopathy. History of atrial fibrillation currently on Eliquis. Patient complaining of accidental fall hitting his head. There was no loss of consciousness. He has a history of fall in the past. History of diabetes hypertension. Patient was trying to get up to go the toilet hit his forehead Related Data Home Medications Medication Instructions Recorded Confirmed carbidopa 25 mg-levodopa 100 mg 2 tab PO TID@0800,1200,2100 12/23/21 04/15/23 tablet gabapentin 100 mg capsule 100 mg PO DAILY 12/23/21 04/15/23 gabapentin 300 mg capsule 300 mg PO BEDTIME 12/23/21 04/15/23 lisinopril 10 mg tablet 10 mg PO DAILY 12/23/21 04/15/23 melatonin 3 mg tablet 3 mg PO BEDTIME PRN Sleep 12/23/21 04/15/23 escitalopram oxalate 5 mg tablet 5 mg PO DAILY 04/10/23 04/15/23 quetiapine 25 mg tablet 25 mg PO BEDTIME 04/10/23 04/15/23 ropinirole 0.25 mg tablet 0.25 mg PO BEDTIME 04/10/23 04/15/23 Previous Rx's Medication Instructions Recorded digoxin 125 mcg (0.125 mg) tablet 125 mcg PO Q2D #30 tabs 04/15/23 empagliflozin 10 mg tablet 10 mg PO DAILY #30 tabs 04/15/23 (Jardiance) metoprolol succinate 100 mg 100 mg PO DAILY #30 tabs 04/15/23 tablet,extended release 24 hr cefuroxime axetil 500 mg tablet 500 mg PO BID #12 tabs 04/19/23 doxycycline monohydrate 100 mg 100 mg PO BID #12 caps 04/19/23 capsule apixaban 5 mg tablet 5 mg PO BID #60 tabs 04/20/23 Allergies Allergy/AdvReac Type Severity Reaction Status Date / Time No Known Allergies Allergy Verified 04/27/23 18:39 Review of Systems Review of Systems: Positive pain to the forehead No loss of consciousness no nausea no vomiting No chest pain Patient states 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 for the last 6 Yes all other systems are reviewed and are negative [facility] Past Medical History Medical History Cardiomyopathy Atrial fibrillation with rapid ventricular response CHF (congestive heart failure) HTN (hypertension) Parkinson disease Surgical History H/O spinal fusion Family History Family History Mother CAD (coronary artery disease) Social History Social History Household Members: Unknown / Unable to assess Housing: Unknown / Unable to assess Do you presently have visiting nurse or other home services: Yes Unable to assess alcohol history related to: Unknown Alcohol intake: never Patient Tobacco Use Status: Former Tobacco user Smoked in Last 30 Days: No e-Cigarette/Vaping Use: Never Used Use of substances other than those prescribed or required for medical reasons: No Substance Use Type: Marijuana Advance Directives: Yes Advance Directives on File: Yes Advance Directives Date on File: 12/27/21 service: No Current occupational status: retired Physical Exam Vital Signs: Vital Signs: Last Vital Signs Temp 97.6 F 04/27/23 18:31 Pulse 72 04/27/23 21:05 Resp 20 04/27/23 21:05 BP 157/94 H 04/27/23 21:05 Pulse Ox 98 04/27/23 21:05 O2 Del Method Room Air 04/27/23 21:05 BMI result Body Mass Index 19.1 Appearance: Alert. Oriented X3. No acute distress. Eyes: Pupils equal, round and reactive to light. ENT: Pharynx normal. Neck: Normal inspection. Neck supple. No lymph nodes noted. No crepitus CVS: Normal heart rate and rhythm. Pulses normal. Normal S1 and S2 Respiratory: No respiratory distress. Breath sounds normal. No Wheezing. No rales Abdomen: Soft and nontender. No rigidity. No distention. good BS x4 Skin: Skin warm and dry. Normal skin color. Normal skin turgor. Extremities: N positive gross dislocation of the left shoulder. Distal pulses 2+. Sensation grossly intact is good movement of the fingers. Skin is intact. Movement at the shoulder is limited. Movement of the elbow and wrist intact. Neuro: Oriented X 3. No motor deficit. No sensory deficit. Moving all extermities. No slurred speech Medical Decision Making Medical Decision Making MDM Narrative: CT scan of the head was grossly negative for any acute evidence of bleeding. No fracture noted. CT scan of the C-spine was negative for any acute evidence of fracture malalignment. CT scan of the shoulder showed fracture dislocation of the humerus. However this is old when compared to a previous CT scan. My interpretation of the patient's EKG showed a sinus pattern heart rate is 70 LA QRS QTC within normal limits there is significant LVH. There is ST segment depression over the lateral leads which is old. The fall seems to mechanical. Will discharge patient home. Currently in stable condition. Patient's shoulder is dislocated. Appears to be chronic. History of document is same. Patient's case discussed with orthopedics. Time actually seen the patient in the past. Aware that patient has a chronic dislocation fracture. Will discharge patient back [facility] the [place] [facility]. In stable condition. Differential Diagnosis Differential Diagnoses: The differential diagnosis associated with the presentation includes Head injury intracranial bleed fracture anemia shoulder dislocation Admission/Observation Consideration of admission/observation: Escalation of care including admission/observation considered Mechanical fall negative CT scan will discharge home Consult Healthcare Provider Management of the patient was discussed with: Senior Executive Compensation Analyst Orthopedics Lab Data [facility] Lab Attestation statement: I reviewed the patient's lab results. 04/27/23 20:11 04/27/23 20:11 Labs: Lab Results 04/27/23 Range/Units 20:11 WBC 7.6 (4.8-10.8) X10*3/uL RBC 4.39 L (4.60-5.80) X10*6/uL Hgb 12.7 L (14.0-18.0) g/dl Hct 40.1 L (42.0-52.0) % MCV 91.3 (80.0-98.0) fL MCH 28.9 (27.0-33.0) pg MCHC 31.7 (31.0-36.0) g/dl RDW 13.1 (11.0-16.0) % Plt Count 469 H D (160-400) X10*3/uL MPV 9.2 L (9.4-12.4) fL Immature Gran % (Auto) 0.5 H (0.0-0.4) % Neut % (Auto) 66.6 (45-73) % Lymph % (Auto) 16.4 L (20-40) % [place] % (Auto) 13.4 H (2-11) % Eos % (Auto) 2.4 (0-4) % Baso % (Auto) 0.7 (0-2) % Lymph # (Auto) 1.3 (1.2-4.9) X10*3/uL [place] # (Auto) 1.0 (0.1-1.2) X10*3/uL Eos # (Auto) 0.2 (0.0-0.4) X10*3/uL Baso # (Auto) 0.1 (0.0-0.2) X10*3/uL Abs Immat Gran (auto) 0.04 H (0.00-0.03) X10*3/uL Absolute Neuts (auto) 5.1 (2.0-8.3) x10*3/uL Absolute Nucleated RBC 0.000 (0.0-0.012) X10*3/uL Nucleated RBC % (auto) 0.0 (0.0-0.2) /100WBC Sodium 143 (135-145) mmol/L Potassium 4.2 (3.3-5.1) mmol/L Chloride 108 (96-108) mmol/L Carbon Dioxide 26 (22-29) mmol/L Anion Gap 13 (12-20) BUN 19 H (9-16) mg/dL Creatinine 0.87 (0.5-1.4) mg/dL Estim Creat Clear Calc 70.2 Estimated GFR > 60 Random Glucose 82 (60-115) mg/dL Calcium 8.2 L (8.4-10.2) mg/dL Independent Interpretation I performed an independent interpretation of an: EKG and CT Scan (CT scan of the head was grossly negative for any acute evidence of bleeding) Interpretation: Sinus heart rate is 70 LA QRS QTC within normal limits there is SC segment depression there is LVH Radiology Impression Discussion of test interpretation with radiology: I have reviewed the radiologist's reading. External Record Review longterm record reviewed Chronic Conditions History of atrial fibrillation history of congestive heart failure history of cardiomyopathy Discharge Plan Discharge Clinical Impression: Head injury, Anterior shoulder dislocation Patient Disposition: Home, Self-Care Instructions: Head Injury (ED), Shoulder Dislocation (ED) Prescriptions: No Action melatonin 3 mg Tablet 3 mg PO BEDTIME PRN (Reason: Sleep) lisinopril 10 mg Tablet 10 mg PO DAILY gabapentin 300 mg Capsule 300 mg PO BEDTIME gabapentin 100 mg Capsule 100 mg PO DAILY carbidopa-levodopa 25-100 mg Tablet 2 tab PO TID@0800,1200,2100 quetiapine 25 mg tablet 25 mg PO BEDTIME escitalopram oxalate 5 mg tablet 5 mg PO DAILY ropinirole 0.25 mg tablet 0.25 mg PO BEDTIME metoprolol succinate 100 mg Tablet Extended Release 24 Hr 100 mg PO DAILY Qty: 30 0RF Protocol: Hold for SBP/HR < HOLD for SBP < : 90 HOLD for HR < : 60 Jardiance 10 mg Tablet 10 mg PO DAILY Qty: 30 0RF digoxin 125 mcg (0.125 mg) tablet 125 mcg PO Q2D Qty: 30 0RF doxycycline monohydrate 100 mg Capsule 100 mg PO BID Qty: 12 0RF cefuroxime axetil 500 mg tablet 500 mg PO BID Qty: 12 0RF apixaban 5 mg tablet 5 mg PO BID Qty: 60 0RF Referrals: Physician,Unknown J [Primary Care Provider] - 04/30/23
[2023-04-27 20:15] LABS: MANUAL DIFF FLAG NO
[2023-04-27 20:17] LABS: Basophils Absolute Auto 0.1 X10*3/uL (0.0-0.2); Basophils Percent Auto 0.7 % (0-2); Eosinophils Absolute Auto 0.2 X10*3/uL (0.0-0.4); Eosinophils Percent Auto 2.4 % (0-4); Hematocrit 40.1 % (42.0-52.0); Hemoglobin 12.7 g/dl (14.0-18.0); Imm Gran Abs Auto 0.04 X10*3/uL (0.00-0.03); Imm Gran Pct Auto 0.5 % (0.0-0.4); Lymphocytes Absolute Auto 1.3 X10*3/uL (1.2-4.9); Lymphocytes Percent Auto 16.4 % (20-40); Mean Corpuscular HGB Conc 31.7 g/dl (31.0-36.0); Mean Corpuscular Hemoglobin 28.9 pg (27.0-33.0); Mean Corpuscular Volume 91.3 fL (80.0-98.0); Mean Platelet Volume 9.2 fL (9.4-12.4); Monocytes Percent Auto 13.4 % (2-11); Neutrophils Absolute Auto 5.1 x10*3/uL (2.0-8.3); Neutrophils Percent Auto 66.6 % (45-73); Platelet Count 469 X10*3/uL (160-400); Red Blood Count 4.39 X10*6/uL (4.60-5.80); Red Cell Distribution Width 13.1 % (11.0-16.0); White Blood Count 7.6 X10*3/uL (4.8-10.8)
[2023-04-27 20:30] LABS: Anion Gap 13 (12-20); Blood Urea Nitrogen 19 mg/dL (9-16); Calcium 8.2 mg/dL (8.4-10.2); Carbon Dioxide 26 mmol/L (22-29); Chloride 108 mmol/L (96-108); Creatinine Clr Calc Pharmacy 70.2; Estimated Glomerular Filt Rate > 60; Glucose Random 82 mg/dL (60-115); Potassium 4.2 mmol/L (3.3-5.1); Sodium 143 mmol/L (135-145)
--- NOTE | 2023-04-27 20:46 | MHC.EDTECH ---
EKG completed and handed to provider. This Tech cut pt shirt off to gain access to chest due to pt being in C Collar and PT Left shoulder being dislocated. Pt placed on personnel monitor. Bloodwork sent to lab for processing. Red fall risk wristband and red socks put on pt
[2023-04-27 21:05] VITALS: BP 157/94; PULSE 72; RESP 20; O2SAT 98
--- NOTE | 2023-04-27 22:00 | PC.NURSE ---
Spoke with Oksana Oquendo, asking for updates. Informed her on current pt condition. She requested to be called with updates, her phone number is in pt's contacts.
--- NOTE | 2023-04-27 22:45 | PC.NURSE ---
Pt's daughter stated she will pick him up around 23:30
== END 2023-04-28 00:11 | disposition home or self-care (01) ==
PROVIDERS: Emergency Provider Emergency Medicine Emergency Medical Services
DX: S09.90XA Unspecified injury of head, initial encounter (principal); W01.0XXA Fall on same level from slipping, tripping and stumbling without subsequent striking against object, initial encounter; M24.412 Recurrent dislocation, left shoulder; I11.0 Hypertensive heart disease with heart failure; I50.9 Heart failure, unspecified; I48.91 Unspecified atrial fibrillation; G20 Parkinson's disease; Z87.891 Personal history of nicotine dependence; Z91.81 History of falling; Y93.89 Activity, other specified; Y92.122 Bedroom in nursing home as the place of occurrence of the external cause; Y99.9 Unspecified external cause status
CPT/HCPCS: 36415; 70450; 72125; 73030; 73200; 80048; 85025; 93005; 99284; 99285

== ENCOUNTER 2023-05-13 21:02 | Inpatient (IN) | payer MEDICARE, SELFPAY ==
--- NOTE | 2023-05-13 | ECG_ITS ---
Test Reason : FAILURE TO THRIVE Blood Pressure : / mmHG Vent. Rate : 147 BPM Atrial Rate : 000 BPM P-R Int : 000 ms QRS Dur : 096 ms QT Int : 250 ms P-R-T Axes : 000 -21 156 degrees QTc Int : 391 ms Atrial fibrillation with rapid ventricular response with premature ventricular or aberrantly conducted complexes Moderate voltage criteria for LVH, may be normal variant ( Sokolow-Sheriff , Brett product ) Marked ST abnormality, possible inferolateral subendocardial injury Abnormal ECG When compared with ECG of 27-APR-2023 19:48, Vent. rate has increased BY [address] more depressed Lateral leads T wave inversion more evident in Lateral leads Referred By: Generic ED Physician Electronically Signed By:JOSE A ROSAS
--- NOTE | ~2023-05-13 | XR_ITS ---
EXAMINATION: XR CHEST CLINICAL INFORMATION: Shortness of breath. COMPARISON: CT chest dated 05/14/2023; chest radiograph dated 05/13/2023. TECHNIQUE: Frontal view of the chest was obtained. FINDINGS: No significant abnormality is noted involving the heart, lungs, mediastinum, bony thorax or soft tissues. The lungs are well-expanded. There is mild elevation the right hemidiaphragm. XR/XR chest 1V IMPRESSION: Unremarkable examination.
--- NOTE | ~2023-05-13 | CT_ITS ---
EXAMINATION: CT CERVICAL SPINE WITHOUT CONTRAST, CT brain CLINICAL INFORMATION: Altered mental status, rule out bleed COMPARISON: Previous dated 04/27/2023 TECHNIQUE: Axial imaging with coronal and sagittal reformatted images. This CT examination was performed using dose optimization techniques as appropriate, variously including the following: *Automated exposure control *Adjustment of mA and/or kV according to patient size (this includes techniques or standardized protocols for targeted exams where dose is matched to indication/reason for exam; i.e. extremities or head) *Use of iterative reconstruction technique DLP: 1000 mGy-cm FINDINGS: CT brain; There is no midline shift. There is no mass effect. There is no hemorrhage. The basal cisterns appear patent. The posterior fossa is grossly within normal limits. There is no extra-axial collection. Note is once again made of White matter ischemic change and atrophy. There is no fracture on the bone windows. Cervical spine; Negative for acute fracture or dislocation. Hardware and degenerative changes are noted. CT/CT head/brain wo IV con IMPRESSION: Negative acute noncontrast CT of the brain. Once again atrophy and white matter ischemic changes. No acute fracture or dislocation in the spine. Degenerative change in hardware noted.
--- NOTE | ~2023-05-13 | CT_ITS ---
EXAMINATION: CT CHEST WITHOUT CONTRAST CLINICAL INFORMATION: Shortness of breath COMPARISON: None available. TECHNIQUE: Multidetector volumetric CT imaging of the chest was done. Axial MIP volume rendering provided. Sagittal and coronal reformatted images were obtained. This CT examination was performed using dose optimization techniques as appropriate, variously including the following: *Automated exposure control *Adjustment of mA and/or kV according to patient size (this includes techniques or standardized protocols for targeted exams where dose is matched to indication/reason for exam; i.e. extremities or head) *Use of iterative reconstruction technique DLP: 317 mGy-cm FINDINGS: LUNGS: Limited detailed evaluation some regions due to respiratory motion artifact. Interlobular septal thickening is noted in some regions, suggesting interstitial edema. Dependent opacities in bilateral lower lobes are more suggestive of atelectasis. No additional consolidation. MEDIASTINUM: The visualized thyroid gland is unremarkable. There are scattered subcentimeter mediastinal lymph nodes without appreciable enlargement on this noncontrast exam. There is cardiomegaly without pericardial effusion. Scattered calcification along the aorta. CORONARY ARTERY CALCIFICATION: Present PLEURA: No pneumothorax or pleural effusion. AXILLA: No lymphadenopathy. UPPER ABDOMEN: Grossly unremarkable. OSSEOUS STRUCTURES: Healing anterior left third through fifth rib fractures. CT/CT chest wo IV con IMPRESSION: 1. Limited detailed evaluation of the lungs due to respiratory motion artifact. Interlobular septal thickening in some regions suggests mild interstitial edema. No focal consolidation. Dependent opacities in bilateral lower lobes are more suggestive of atelectasis. 2. Cardiomegaly. 3. Healing anterior left third through fifth rib fractures. 4. Coronary artery calcifications. Correlation with cardiac risk factors is recommended.
--- NOTE | ~2023-05-13 | XR_ITS ---
EXAMINATION: XR KNEE, LEFT CLINICAL INFORMATION: Pain COMPARISON: Previous x-ray January 2022 TECHNIQUE: Two views of the left knee. FINDINGS: No fracture or joint effusion. Alignment is anatomic. Joint spaces are maintained. No abnormal soft tissue calcification. XR/XR knee LT 2V IMPRESSION: Normal left knee.
--- NOTE | ~2023-05-13 | CT_ITS ---
EXAMINATION: CT CERVICAL SPINE WITHOUT CONTRAST, CT brain CLINICAL INFORMATION: Altered mental status, rule out bleed COMPARISON: Previous dated 04/27/2023 TECHNIQUE: Axial imaging with coronal and sagittal reformatted images. This CT examination was performed using dose optimization techniques as appropriate, variously including the following: *Automated exposure control *Adjustment of mA and/or kV according to patient size (this includes techniques or standardized protocols for targeted exams where dose is matched to indication/reason for exam; i.e. extremities or head) *Use of iterative reconstruction technique DLP: 1000 mGy-cm FINDINGS: CT brain; There is no midline shift. There is no mass effect. There is no hemorrhage. The basal cisterns appear patent. The posterior fossa is grossly within normal limits. There is no extra-axial collection. Note is once again made of White matter ischemic change and atrophy. There is no fracture on the bone windows. Cervical spine; Negative for acute fracture or dislocation. Hardware and degenerative changes are noted. CT/CT cervical spine wo IV con IMPRESSION: Negative acute noncontrast CT of the brain. Once again atrophy and white matter ischemic changes. No acute fracture or dislocation in the spine. Degenerative change in hardware noted.
--- NOTE | ~2023-05-13 | XR_ITS ---
EXAMINATION: XR CHEST CLINICAL INFORMATION: No infiltrate. COMPARISON: 04/19/2023 TECHNIQUE: Frontal view of the chest was obtained. FINDINGS: No significant abnormality is noted involving the heart, lungs, mediastinum, bony thorax or soft tissues. XR/XR chest 1V IMPRESSION: Unremarkable examination.
[2023-05-13 21:07] VITALS: BP 153/115; BP 157/110; PULSE 140; PULSE 153; RESP 18; TEMP 38.3; O2SAT 100; O2SAT 96; BMI 18.0
--- NOTE | 2023-05-13 21:28 | PC.NURSE ---
sepsis alert called overhead.
--- NOTE | 2023-05-13 21:30 | ED_ITS ---
HPI - Weakness General Chief complaint: Failure to Thrive Stated complaint: FTT,not eaten or drank x2days, unable to speak Time Seen by Provider: 05/13/23 21:18 Source: EMS and other (ED nurse) Mode of arrival: EMS Limitations: altered mental status History of Present Illness HPI Narrative: 68-year-old male with a history of Parkinson's disease, atrial fibrillation, congestive heart failure with EF 15-20% on 04/11/2023, , no significant coronary artery disease on recent cardiac catheterization, cardiomegaly who presents emergency department for evaluation of poor oral intake x3 days and failure to thrive at home. The patient was on Eliquis but this was stopped 3 weeks prior secondary frequent falls. Information came from EMS who got report from the patient's daughter about the out of 5 x 3 days with poor oral intake. EMS found the patient has O2 saturation to be 91% on room air and on 2 L the O2 saturation was 97-100%. Patient's heart rate 130-150. Here in the emergency department the patient was febrile with a temperature of a 101.0 degrees. Patient is awake but but altered. He was able to tell me his name but otherwise does not respond to questioning. Related Data Home Medications Medication Instructions Recorded Confirmed carbidopa 25 mg-levodopa 100 mg 2 tab PO TID@0800,1200,2100 12/23/21 05/14/23 tablet gabapentin 100 mg capsule 100 mg PO DAILY 12/23/21 05/14/23 gabapentin 300 mg capsule 300 mg PO BEDTIME 12/23/21 05/14/23 melatonin 3 mg tablet 3 mg PO BEDTIME PRN Sleep 12/23/21 05/14/23 escitalopram oxalate 5 mg tablet 5 mg PO DAILY 04/10/23 05/14/23 quetiapine 25 mg tablet 25 mg PO BEDTIME 04/10/23 05/14/23 ropinirole 0.25 mg tablet 0.25 mg PO BEDTIME 04/10/23 05/14/23 metoprolol succinate 100 mg 25 mg PO DAILY 05/14/23 05/14/23 tablet,extended release 24 hr Previous Rx's Medication Instructions Recorded cefuroxime axetil 500 mg tablet 500 mg PO BID #12 tabs 04/19/23 doxycycline monohydrate 100 mg 100 mg PO BID #12 caps 04/19/23 capsule apixaban 5 mg tablet 5 mg PO BID #60 tabs 04/20/23 Allergies Allergy/AdvReac Type Severity Reaction Status Date / Time No Known Allergies Allergy Verified 04/27/23 18:39 Review of Systems 2 Review of Systems: Yes Unobtainable due to mental status PMFSH Past Medical History Medical History Cardiomyopathy Atrial fibrillation with rapid ventricular response CHF (congestive heart failure) HTN (hypertension) Parkinson disease Surgical History H/O spinal fusion Family History Family History Mother CAD (coronary artery disease) Social History Social History Household Members: Unknown / Unable to assess Housing: Unknown / Unable to assess Do you presently have visiting nurse or other home services: Yes Unable to assess alcohol history related to: Unable to respond Alcohol intake: never Patient Tobacco Use Status: Former Tobacco user e-Cigarette/Vaping Use: Never Used Use of substances other than those prescribed or required for medical reasons: Unable to respond Substance Use Type: Marijuana Advance Directives: Yes Advance Directives on File: Yes Advance Directives Date on File: 12/27/21 service: No Current occupational status: retired Physical Exam 2 Vital Signs: Vital Signs: Last Vital Signs Temp 98.2 F 05/14/23 00:28 Pulse 109 H 05/14/23 00:28 Resp 16 05/14/23 00:28 BP 154/107 H 05/14/23 00:28 Pulse Ox 98 05/14/23 00:28 O2 Del Method Nasal Cannula 05/14/23 00:28 O2 Flow Rate 1 05/14/23 00:28 Oxygen Flow Rate 2 05/13/23 23:32 BMI result Body Mass Index 18.0 Vital signs revealed an elevated blood pressure of 153/115, elevated heart rate of 153 and an elevated temperature of a 101 degrees F an O2 saturation of 96% on 2 L. Exam: General: Awake, blunt affect, minimally responsible, was able to tell me his name but does not answer questions Head: Normocephalic, no obvious ecchymosis or hematomas noted, he does have an abrasion to his mid forehead EENT: PERRL, Lids normal, sclera normal, conjunctiva normal, nose normal , ears normal, throat without erythema or exudates Neck: Supple, no adenopathy, trachea midline and tenderness with palpation of the cervical spine Lung: breath sounds symmetric, no wheezing, rales or rhonchi Chest: symmetric movement, nontender Heart: Rapid irregular irregular rhythm, normal S1, S2 no murmurs or rubs Abdomen: soft, non-tender, nondistended, normal bowel sounds Back: no vertebral tenderness, no CVAT Extremities: Patient has a chronic deformity of his left shoulder secondary to chronic dislocation, there is ecchymosis in abrasion over the shoulder, patient has ecchymosis and a small hematoma to his left hip, patient has ecchymosis and abrasions to both knees Neuro: Awake, but minimally responsive, oriented to his name, very soft speech, does not follow simple commands, Psych: Blunted affect Medications Administered Discontinued Medications Generic Name Dose Route Start Last Admin Trade Name Freq PRN Reason Stop Dose Admin Acetaminophen 650 mg 05/13/23 21:21 05/13/23 21:46 Acetaminophen Supp 650 Mg Supp.Rect [place] 05/13/23 21:22 650 mg ONCE STA Administration Sodium Chloride 1,704 mls @ 1,704 mls/hr 05/13/23 21:27 05/14/23 00:09 Ns 30 ml/kg infuse over 1 hr (1704 ml) 05/13/23 22:26 Infused IV Infusion .Q1H STA Piperacillin Sod/Tazobactam 100 mls @ 200 mls/hr 05/13/23 21:42 05/13/23 22:35 Sod 4.5 gm/ Sodium Chloride IV 05/13/23 22:11 Infused ONCE ONE Infusion Metoprolol Tartrate 5 mg 05/13/23 21:13 05/14/23 00:03 Metoprolol Tartrate 5 Mg/5 Ml Vial IVPUSH 05/13/23 21:14 Not Given ONCE ONE Medical Decision Making Medical Decision Making MDM Narrative: 68-year-old male with a history of Parkinson's disease, atrial fibrillation, congestive heart failure with EF 15-20% on 04/11/2023, , no significant coronary artery disease on recent cardiac catheterization, cardiomegaly who presents emergency department for evaluation of poor oral intake x3 days and failure to thrive at home. Patient was found to be febrile with temperature of a 101 degrees degrees F, tachycardia with a heart rate ranging from 110-140 beats per minute-the patient has chronic atrial fibrillation, elevated blood pressure of 153/115. O2 saturation was 91% on room air and improved to 97% on 2 L via nasal cannula-suggesting does not have significant hypoxia. 2138: Patient was made a sepsis alert Following evaluation was ordered: CBC, BMP, liver panel, lipase, BNP, CRP, digoxin, CK, procalcitonin, VBG, urinalysis via straight cath and Damon catheter to monitor fluid output. Patient was given Zosyn 4.5 g IV 2304: Patient's laboratory evaluation revealed a normal WBC, non elevated lactic acid, normal procalcitonin. There was no evidence for severe sepsis, the patient does meet SIRS criteria. The etiology of the patient's infection is unclear. The patient does have an elevated high sensitive troponin I of 192.[address] segment depressions and to through AVF as well as V5 and V6-patient most likely has type 2 myocardial injury from an infectious etiology and his tachycardia. 0216: Patient's repeat lactic acid was normal at 1.3. Patient repeat troponin was 168.6 which was not elevated and actually was lower suggesting that the patient may have type 2 myocardial injury. 0231: I did discuss admission with the covering hospitalist. After discussion, CT chest will be obtained to rule out pneumonia versus CHF The patient will be admitted to the hospital service for further treatment. Differential Diagnosis Differential Diagnoses: The differential diagnosis associated with the presentation includes The differential diagnosis includes was not limited to volume depletion, dehydration, pneumonia, urinary tract infection, electrolyte abnormality, atrial fibrillation with rapid ventricular response Admission/Observation Consideration of admission/observation: Escalation of care including admission/observation considered Lab Data MDM Lab Attestation statement: I reviewed the patient's lab results. My interpretation patient's laboratory evaluation as follows: CBC was normal. CMP was normal. LFTs were normal. Lactic acid was normal. Procalcitonin was also normal. Patient's high sensitive troponin I was elevated at 192.6 -this is most likely secondary to type 2 myocardial injury due to infection and tachycardia. Repeat due at 00:30 hours. BNP is elevated 3272 consistent with right-sided heart failure. COVID-19 was negative. VBG revealed pH of 7.48 with pCO2 to 39 which is normal. BNP was elevated 3272-he has had elevations in the past but today's value is significantly higher. 05/13/23 21:23 05/13/23 21:23 Labs: Lab Results 05/13/23 05/13/23 05/13/23 Range/Units 21:23 21:37 21:44 WBC 8.7 (4.8-10.8) X10*3/uL RBC 4.62 (4.60-5.80) X10*6/uL Hgb 13.2 L (14.0-18.0) g/dl Hct 41.9 L (42.0-52.0) % MCV 90.7 (80.0-98.0) fL MCH 28.6 (27.0-33.0) pg MCHC 31.5 (31.0-36.0) g/dl RDW 13.6 (11.0-16.0) % Plt Count 324 D (160-400) X10*3/uL MPV 9.8 (9.4-12.4) fL Immature Gran % (Auto) 0.5 H (0.0-0.4) % Neut % (Auto) 69.1 (45-73) % Lymph % (Auto) 15.5 L (20-40) % [place] % (Auto) 14.0 H (2-11) % Eos % (Auto) 0.3 (0-4) % Baso % (Auto) 0.6 (0-2) % Lymph # (Auto) 1.3 (1.2-4.9) X10*3/uL [place] # (Auto) 1.2 (0.1-1.2) X10*3/uL Eos # (Auto) 0.0 (0.0-0.4) X10*3/uL Baso # (Auto) 0.1 (0.0-0.2) X10*3/uL Abs Immat Gran (auto) 0.04 H (0.00-0.03) X10*3/uL Absolute Neuts (auto) 6.0 (2.0-8.3) x10*3/uL Absolute Nucleated RBC 0.000 (0.0-0.012) X10*3/uL Nucleated RBC % (auto) 0.0 (0.0-0.2) /100WBC PT 14.9 H (11.1-13.3) SEC INR 1.2 H (0.9-1.1) VBG pH 7.48 H (7.32-7.43) VBG pCO2 39 mmHg VBG pO2 124 mmHg VBG HCO3 29 H (22-26) mmol/L VBG O2 Saturation 99.0 % VBG Base Excess 5.8 mmol/L Sodium 144 (135-145) mmol/L Potassium 3.8 (3.3-5.1) mmol/L Chloride 106 (96-108) mmol/L Carbon Dioxide 25 (22-29) mmol/L Anion Gap 17 (12-20) BUN 27 H (9-16) mg/dL Creatinine 1.10 (0.5-1.4) mg/dL Estim Creat Clear Calc 50.9 Estimated GFR > 60 Random Glucose 112 (60-115) mg/dL Lactic Acid 1.5 (0.5-2.0) mmol/L Calcium 9.3 D (8.4-10.2) mg/dL Magnesium 2.5 (1.6-2.6) mg/dL Total Bilirubin 0.8 (0.0-1.0) mg/dL Direct Bilirubin 0.4 (0.0-0.5) mg/dL AST 19 (5-37) U/L ALT < 5 (0-40) U/L Alkaline Phosphatase 96 (39-117) U/L Total Creatine Kinase 292 H (38-174) U/L Troponin I High Sens 192.6 H* D (<3.5-35.0) ng/L C-Reactive Protein 8.24 H (< or = 0.50) mg/dL B-Natriuretic Peptide 3272 H (<100) pg/mL Total Protein 7.3 (6.5-8.0) g/dL Albumin 3.7 (3.5-5.0) g/dL Lipase 32 (8-78) U/L Procalcitonin 0.08 ng/mL TSH 1.22 (0.32-4.0) uIU/mL Urine Color Urine Appearance Urine pH (5.0-9.0) Ur Specific [place] (1.005-1.025) Urine Protein (Neg-Trace) mg/dL Urine Glucose (UA) (Negative) mg/dL Urine Ketones (Negative) mg/dL Urine Blood (Negative) Urine Nitrite (Negative) Ur Leukocyte Esterase (Negative) Urine RBC (0-2) /HPF Urine WBC (0-5) /HPF Ur Squamous Epith Cells (0-2) /HPF Urine Bacteria (None Seen) Hyaline Casts (0-2) /LPF Digoxin 0.4 L (0.8-2.0) ng/mL Ethyl Alcohol < 10 mg/dL COVID-19 (MIR) (Negative) COVID-19 Clin Com Influenza Type A (SUSAN) (Negative) Influenza Type B (SUSAN) (Negative) Influenza A & B Note Blood Type Antibody Screen 05/13/23 05/13/23 05/13/23 Range/Units 21:45 21:55 21:57 WBC (4.8-10.8) X10*3/uL RBC (4.60-5.80) X10*6/uL Hgb (14.0-18.0) g/dl Hct (42.0-52.0) % MCV (80.0-98.0) fL MCH (27.0-33.0) pg MCHC (31.0-36.0) g/dl RDW (11.0-16.0) % Plt Count (160-400) X10*3/uL MPV (9.4-12.4) fL Immature Gran % (Auto) (0.0-0.4) % Neut % (Auto) (45-73) % Lymph % (Auto) (20-40) % [place] % (Auto) (2-11) % Eos % (Auto) (0-4) % Baso % (Auto) (0-2) % Lymph # (Auto) (1.2-4.9) X10*3/uL [place] # (Auto) (0.1-1.2) X10*3/uL Eos # (Auto) (0.0-0.4) X10*3/uL Baso # (Auto) (0.0-0.2) X10*3/uL Abs Immat Gran (auto) (0.00-0.03) X10*3/uL Absolute Neuts (auto) (2.0-8.3) x10*3/uL Absolute Nucleated RBC (0.0-0.012) X10*3/uL Nucleated RBC % (auto) (0.0-0.2) /100WBC PT (11.1-13.3) SEC INR (0.9-1.1) VBG pH (7.32-7.43) VBG pCO2 mmHg VBG pO2 mmHg VBG HCO3 (22-26) mmol/L VBG O2 Saturation % VBG Base Excess mmol/L Sodium (135-145) mmol/L Potassium (3.3-5.1) mmol/L Chloride (96-108) mmol/L Carbon Dioxide (22-29) mmol/L Anion Gap (12-20) BUN (9-16) mg/dL Creatinine (0.5-1.4) mg/dL Estim Creat Clear Calc Estimated GFR Random Glucose (60-115) mg/dL Lactic Acid (0.5-2.0) mmol/L Calcium (8.4-10.2) mg/dL Magnesium (1.6-2.6) mg/dL Total Bilirubin (0.0-1.0) mg/dL Direct Bilirubin (0.0-0.5) mg/dL AST (5-37) U/L ALT (0-40) U/L Alkaline Phosphatase (39-117) U/L Total Creatine Kinase (38-174) U/L Troponin I High Sens (<3.5-35.0) ng/L C-Reactive Protein (< or = 0.50) mg/dL B-Natriuretic Peptide (<100) pg/mL Total Protein (6.5-8.0) g/dL Albumin (3.5-5.0) g/dL Lipase (8-78) U/L Procalcitonin ng/mL TSH (0.32-4.0) uIU/mL Urine Color Dark Yellow Urine Appearance Clear Urine pH 5.5 (5.0-9.0) Ur Specific [place] >= 1.030 H (1.005-1.025) Urine Protein 100 (2+) H (Neg-Trace) mg/dL Urine Glucose (UA) >=1000 H (Negative) mg/dL Urine Ketones Trace (Negative) mg/dL Urine Blood Negative (Negative) Urine Nitrite Negative (Negative) Ur Leukocyte Esterase Negative (Negative) Urine RBC 0-2 (0-2) /HPF Urine WBC 0-5 (0-5) /HPF Ur Squamous Epith Cells 0-2 (0-2) /HPF Urine Bacteria None Seen (None Seen) Hyaline Casts 3-5 (0-2) /LPF Digoxin (0.8-2.0) ng/mL Ethyl Alcohol mg/dL COVID-19 (MIR) Negative (Negative) COVID-19 Clin Com See Note Influenza Type A (SUSAN) (Negative) Influenza Type B (SUSAN) (Negative) Influenza A & B Note Blood Type A Positive Antibody Screen NEGATIVE 05/13/23 05/14/23 05/14/23 Range/Units 23:41 00:40 00:44 WBC (4.8-10.8) X10*3/uL RBC (4.60-5.80) X10*6/uL Hgb (14.0-18.0) g/dl Hct (42.0-52.0) % MCV (80.0-98.0) fL MCH (27.0-33.0) pg MCHC (31.0-36.0) g/dl RDW (11.0-16.0) % Plt Count (160-400) X10*3/uL MPV (9.4-12.4) fL Immature Gran % (Auto) (0.0-0.4) % Neut % (Auto) (45-73) % Lymph % (Auto) (20-40) % [place] % (Auto) (2-11) % Eos % (Auto) (0-4) % Baso % (Auto) (0-2) % Lymph # (Auto) (1.2-4.9) X10*3/uL [place] # (Auto) (0.1-1.2) X10*3/uL Eos # (Auto) (0.0-0.4) X10*3/uL Baso # (Auto) (0.0-0.2) X10*3/uL Abs Immat Gran (auto) (0.00-0.03) X10*3/uL Absolute Neuts (auto) (2.0-8.3) x10*3/uL Absolute Nucleated RBC (0.0-0.012) X10*3/uL Nucleated RBC % (auto) (0.0-0.2) /100WBC PT (11.1-13.3) SEC INR (0.9-1.1) VBG pH (7.32-7.43) VBG pCO2 mmHg VBG pO2 mmHg VBG HCO3 (22-26) mmol/L VBG O2 Saturation % VBG Base Excess mmol/L Sodium (135-145) mmol/L Potassium (3.3-5.1) mmol/L Chloride (96-108) mmol/L Carbon Dioxide (22-29) mmol/L Anion Gap (12-20) BUN (9-16) mg/dL Creatinine (0.5-1.4) mg/dL Estim Creat Clear Calc Estimated GFR Random Glucose (60-115) mg/dL Lactic Acid 1.3 (0.5-2.0) mmol/L Calcium (8.4-10.2) mg/dL Magnesium (1.6-2.6) mg/dL Total Bilirubin (0.0-1.0) mg/dL Direct Bilirubin (0.0-0.5) mg/dL AST (5-37) U/L ALT (0-40) U/L Alkaline Phosphatase (39-117) U/L Total Creatine Kinase (38-174) U/L Troponin I High Sens 168.6 H* (<3.5-35.0) ng/L C-Reactive Protein (< or = 0.50) mg/dL B-Natriuretic Peptide (<100) pg/mL Total Protein (6.5-8.0) g/dL Albumin (3.5-5.0) g/dL Lipase (8-78) U/L Procalcitonin ng/mL TSH (0.32-4.0) uIU/mL Urine Color Urine Appearance Urine pH (5.0-9.0) Ur Specific [place] (1.005-1.025) Urine Protein (Neg-Trace) mg/dL Urine Glucose (UA) (Negative) mg/dL Urine Ketones (Negative) mg/dL Urine Blood (Negative) Urine Nitrite (Negative) Ur Leukocyte Esterase (Negative) Urine RBC (0-2) /HPF Urine WBC (0-5) /HPF Ur Squamous Epith Cells (0-2) /HPF Urine Bacteria (None Seen) Hyaline Casts (0-2) /LPF Digoxin (0.8-2.0) ng/mL Ethyl Alcohol mg/dL COVID-19 (MIR) (Negative) COVID-19 Clin Com Influenza Type A (SUSAN) Negative (Negative) Influenza Type B (SUSAN) Negative (Negative) Influenza A & B Note See Note Blood Type Antibody Screen Independent Interpretation I performed an independent interpretation of an: EKG and Plain X-Ray Interpretation: My independent interpretation of the patient's one-view chest x-ray is as follows: Hyperinflated lungs, cardiomegaly, no infiltrates, no increased interstitial markings My independent interpretation patient's 12 EKG is as follows: Atrial fibrillation with a rapid ventricular rate of 147, normal QRS duration QTC interval, less than [address] segment depression leads 2, 3 and AVF, 2-[address] segment depression V5 and V6. Radiology Impression Discussion of test interpretation with radiology: I have reviewed the radiologist's reading. Radiologist Impression: XR chest 1V IMPRESSION: Unremarkable examination. Dictated By: Edis Salazar MD CT head/brain wo IV con IMPRESSION: Negative acute noncontrast CT of the brain. Once again atrophy and white matter ischemic changes. No acute fracture or dislocation in the spine. Degenerative change in hardware noted. Dictated By: Gabe Ac MD Critical Care Time Critical Care Time Critical Care Time: Yes Total Critical Care Time: 45 Attestation: Critical Care: The patient was critically ill with a high probability of imminent or life threatening deterioration. I spent greater than 30 minutes of discontinuous time evaluating the patient,delivering critical care at the bedside, discussing and evaluating pertinent data with consultants. Critical care time does not include time spent performing separately billable procedures or teaching. Total time spent performing critical care was 45 minutes. Discharge Plan Discharge Clinical Impression: Fever, Atrial fibrillation with rapid ventricular response, Elevated troponin Patient Disposition: Admitted As Inpatient
[2023-05-13] MEDS: SODIUM CHLORIDE 1704 ML IV (21:31)
--- NOTE | 2023-05-13 21:31 | PC.NURSE ---
first liter of normal saline hung.
[2023-05-13 21:37] LABS: MANUAL DIFF FLAG NO
[2023-05-13 21:40] LABS: Venous Blood Gas Refer to POC result
[2023-05-13 21:41] LABS: VBG Base Excess 5.8 mmol/L; VBG HCO3 29 mmol/L (22-26); VBG pCO2 39 mmHg; VBG pH 7.48 (7.32-7.43); VBG pO2 124 mmHg
[2023-05-13] MEDS: Acetaminophen Supp 650 MG SUPP.RECT PR (21:46)
[2023-05-13 21:48] LABS: Lactic Acid 1.5 mmol/L (0.5-2.0)
[2023-05-13 21:50] LABS: Basophils Absolute Auto 0.1 X10*3/uL (0.0-0.2); Basophils Percent Auto 0.6 % (0-2); Eosinophils Percent Auto 0.3 % (0-4); Hematocrit 41.9 % (42.0-52.0); Hemoglobin 13.2 g/dl (14.0-18.0); Imm Gran Abs Auto 0.04 X10*3/uL (0.00-0.03); Imm Gran Pct Auto 0.5 % (0.0-0.4); Lymphocytes Absolute Auto 1.3 X10*3/uL (1.2-4.9); Lymphocytes Percent Auto 15.5 % (20-40); Mean Corpuscular HGB Conc 31.5 g/dl (31.0-36.0); Mean Corpuscular Hemoglobin 28.6 pg (27.0-33.0); Mean Corpuscular Volume 90.7 fL (80.0-98.0); Mean Platelet Volume 9.8 fL (9.4-12.4); Monocytes Absolute Auto 1.2 X10*3/uL (0.1-1.2); Neutrophils Percent Auto 69.1 % (45-73); Platelet Count 324 X10*3/uL (160-400); Red Blood Count 4.62 X10*6/uL (4.60-5.80); Red Cell Distribution Width 13.6 % (11.0-16.0); White Blood Count 8.7 X10*3/uL (4.8-10.8)
[2023-05-13 21:58] LABS: B Type Natriuretic Peptide 3272 pg/mL (<100)
[2023-05-13] MEDS: Piperacillin Sodium/Tazobactam 4.5 GM in 0.9 % Sodium Chloride 100 ML IV (22:01)
--- NOTE | 2023-05-13 22:01 | PC.NURSE ---
first dose of antibiotics hung at this time.
[2023-05-13 22:02] LABS: Alanine Aminotransferase < 5 U/L (0-40); Albumin Level 3.7 g/dL (3.5-5.0); Alkaline Phosphatase 96 U/L (39-117); Anion Gap 17 (12-20); Aspartate Amino Transferase 19 U/L (5-37); Bilirubin Direct 0.4 mg/dL (0.0-0.5); Bilirubin Total 0.8 mg/dL (0.0-1.0); Blood Urea Nitrogen 27 mg/dL (9-16); C Reactive Protein 8.24 mg/dL (< or = 0.50); Calcium 9.3 mg/dL (8.4-10.2); Carbon Dioxide 25 mmol/L (22-29); Chloride 106 mmol/L (96-108); Creatinine Clr Calc Pharmacy 50.9; Estimated Glomerular Filt Rate > 60; Glucose Random 112 mg/dL (60-115); Lipase 32 U/L (8-78); Magnesium 2.5 mg/dL (1.6-2.6); Potassium 3.8 mmol/L (3.3-5.1); Sodium 144 mmol/L (135-145); Total Protein 7.3 g/dL (6.5-8.0)
[2023-05-13 22:03] LABS: Troponin-I High Sensitivity 192.6 ng/L (<3.5-35.0)
[2023-05-13 22:11] LABS: INTERNATIONAL NORM RATIO 1.2 (0.9-1.1); Prothrombin Time 14.9 SEC (11.1-13.3)
[2023-05-13 22:15] LABS: Appearance Urine Clear; Color Urine Dark Yellow; Glucose Urine UA >=1000 mg/dL (Negative); Leukocyte Esterase Urine Negative (Negative); Nitrite Urine Negative (Negative); PH 5.5 (5.0-9.0); Specific Gravity - Urine >= 1.030 (1.005-1.025); UMIC TRIGGER UACC YES; Urine Blood Negative (Negative); Urine Ketones Trace mg/dL (Negative); Urine Protein 100 (2+) mg/dL (Neg-Trace)
[2023-05-13 22:15] LABS: Procalcitonin 0.08 ng/mL
[2023-05-13 22:17] LABS: Digoxin 0.4 ng/mL (0.8-2.0)
--- NOTE | 2023-05-13 22:18 | PC.NURSE ---
assumed care of pt at 2106. pt transferred from EMS stretcher to hospital stretcher with no complications. pt placed on 2L by ems for poor oxygenation at home, no o2 at baseline. pt with spontaneous eye opening, no verbal response with some purposeful movement on arrival. pt at this time has one word verbal response, acknowledging this RN and other staff, improving after initial treatments. pt febrile at 100.1 rectally, tachycardic 130-150 on tele, concerning for sepsis- temp barton placed and urine specimen obtained with [place] output, labs obtained, second IV established, initial fluid bolus given at moderate rate d/t hx of CHF REF, rectal Tylenol given., antibiotics administered. pt on afib on arrival 150s, medications held per provider verbal order for response to IVF. pt now afib 100-110. deformity to left shoulder noted with preexisting dislocation, left contusion/hematoma noted, pressure wounds to sacral region with sanguineous drainage noted- brief removed, pt cleaned, wounds left open to air. multiple small abrasions in various stages of healing.
[2023-05-13 22:28] VITALS: BP 141/93; PULSE 108; RESP 18; O2SAT 99
[2023-05-13 22:30] LABS: Bacteria Urine None Seen (None Seen); RBC Urine 0-2 /HPF (0-2); Squamous Epithelial Cell Urine 0-2 /HPF (0-2); WBC Urine 0-5 /HPF (0-5)
[2023-05-13 22:32] LABS: COVID-19 Test Negative (Negative); IDNOW Serial# 6674DD1D
--- NOTE | 2023-05-13 22:35 | PC.NURSE ---
first dose of antibiotics completed at this time.
--- NOTE | 2023-05-13 22:41 | PC.NURSE ---
pt titrated off oxygen at this time, sating between 96-98% room air.
[2023-05-13 22:42] VITALS: PULSE 112; O2SAT 98
--- NOTE | 2023-05-13 22:47 | PC.NURSE ---
initial liter of normal saline complete at this time. remaining fluids hung at this time moderate rate. lung sounds clear bilaterally, no other signs of overload.
--- NOTE | 2023-05-13 23:12 | MHC.EDTECH ---
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
[2023-05-13 23:28] VITALS: BP 143/101; PULSE 120; RESP 18; TEMP 37; O2SAT 95
--- NOTE | 2023-05-13 23:28 | PC.NURSE ---
hour two sepsis alert called over head. vital signs documented. remaining iv fluids running at this time.
[2023-05-13 23:32] VITALS: O2SAT 98
[2023-05-13 23:33] LABS: Ethanol < 10 mg/dL
[2023-05-13 23:52] LABS: TSH reflex Free T4 1.22 uIU/mL (0.32-4.0)
[2023-05-13 23:56] LABS: Lactic Acid 1.3 mmol/L (0.5-2.0)
[2023-05-14] VITALS (10 sets, daily range): BP systolic 100–155; BP diastolic 60–111; PULSE 62–139; RESP 15–20; TEMP 36.1–37.2; O2SAT 92–98
--- NOTE | 2023-05-14 00:09 | PC.NURSE ---
remaining IV fluids completed. vital signs updated.
--- NOTE | 2023-05-14 00:15 | PC.NURSE ---
pt demonstrating marked improvement in neurological status; able to identify name, date of and current year as well as location hospital . pt denies pain. follows commands. vs showing improvement as charted. continuing sepsis protocol.
[2023-05-14 01:06] LABS: IDNOW Serial# 9DB6401D; Influenza A Negative (Negative); Influenza B2 Negative (Negative)
--- NOTE | 2023-05-14 01:19 | PC.NURSE ---
med rec completed. skipped apixiban because per EMS pt is no longer taking due to frequent falls.
[2023-05-14 01:22] LABS: Troponin-I High Sensitivity 168.6 ng/L (<3.5-35.0)
--- NOTE | 2023-05-14 04:37 | PC.NURSE ---
pt repositioned in bed, reattached stat lock to leg. brief placed on pt to redirect pt from pulling on barton. vitals reassessed.
--- NOTE | 2023-05-14 05:18 | PC.NURSE ---
pt progressively more alert a&o2, pt currently pulling at barton. reached out to provider for additional orders at this time.
--- NOTE | 2023-05-14 06:14 | P.HPHOSP_ITS ---
History of Present Illness Date of Service: 05/14/23 Chief Complaint: confusion, low appetite 68-year-old male with past medical history of Parkinson's disease, AFib on Eliquis, CHF with ejection fraction of 15-20 % cardiomegaly presents the emergency room with complaints of 3 days of failure to thrive and decreased oral intake. Patient is oriented to self and place but otherwise confused, not directable, not giving good history. On arrival to the ED patient was found to have a fever of 101, tachycardic with a heart rate in the 110s to 140s, and O2 was 91% on room air. BP stable Patient was found to be in AFib with RVR, with lab significant for troponin of 192 that decreased to 168. Chest x-ray showed unremarkable results, UA negative, CT head and neck negative, COVID influenza and RSV negative. Patient started on antibiotics and CT chest was ordered Chest CT shows limited detailed evaluation due to respiratory motion artifact but there seems to be interstitial edema, and dependent opacities in the bilateral lower lobes suggestive of atelectasis Review of Systems 2 Review of Systems: Yes Unobtainable due to mental condition and Unobtainable due to mental status [facility] Medical History Cardiomyopathy Atrial fibrillation with rapid ventricular response CHF (congestive heart failure) HTN (hypertension) Parkinson disease Family History Mother CAD (coronary artery disease) Surgical History H/O spinal fusion Social History Household Members: Unknown / Unable to assess Housing: Unknown / Unable to assess Do you presently have visiting nurse or other home services: Yes Unable to assess alcohol history related to: Unable to respond Alcohol intake: never Patient Tobacco Use Status: Former Tobacco user e-Cigarette/Vaping Use: Never Used Use of substances other than those prescribed or required for medical reasons: Unable to respond Substance Use Type: Marijuana Advance Directives: Yes Advance Directives on File: Yes Advance Directives Date on File: 12/27/21 Nutrition Risks: Emaciation/Cachexia service: No Current occupational status: retired Meds Allergies Allergy/AdvReac Type Severity Reaction Status Date / Time No Known Allergies Allergy Verified 04/27/23 18:39 Active Medications: Current Medications Acetaminophen (Acetaminophen 325 Mg Tablet) 650 mg PO Q6H PRN PRN Reason: Pain, Mild (Pain Scale 1-3) Docusate Sodium (Docusate Sodium 100 Mg Capsule) 100 mg PO DAILY PRN PRN Reason: Constipation Furosemide (Furosemide 40 Mg/4 Ml Vial) 40 mg IVPUSH BID@0800,1700 STEPH; Protocol Ondansetron HCl (Ondansetron Hcl 4 Mg/2 Ml Vial) 4 mg IVPUSH Q8H PRN PRN Reason: Nausea and Vomiting Sodium Chloride (0.9 % Sodium Chloride Flush 3 Ml Syringe) 3 ml IVFLUSH QSHIFT [facility] Home Medications Medication Instructions Recorded Confirmed Last Taken Type carbidopa 25 mg-levodopa 100 mg 2 tab PO TID@0800,1200,2100 12/23/21 05/14/23 12/26/22 History tablet gabapentin 100 mg capsule 100 mg PO DAILY 12/23/21 05/14/23 12/26/22 History gabapentin 300 mg capsule 300 mg PO BEDTIME 12/23/21 05/14/23 12/25/22 History melatonin 3 mg tablet 3 mg PO BEDTIME PRN Sleep 12/23/21 05/14/23 Unknown History escitalopram oxalate 5 mg tablet 5 mg PO DAILY 04/10/23 05/14/23 Unknown History quetiapine 25 mg tablet 25 mg PO BEDTIME 04/10/23 05/14/23 Unknown History ropinirole 0.25 mg tablet 0.25 mg PO BEDTIME 04/10/23 05/14/23 Unknown History metoprolol succinate 100 mg 25 mg PO DAILY 05/14/23 05/14/23 Unknown History tablet,extended release 24 hr Physical Exam 2 Vital Signs and Narrative: Vital Signs: Last Vital Signs Temp 97.3 F 05/14/23 04:26 Pulse 96 05/14/23 04:26 Resp 18 05/14/23 04:26 BP 146/98 H 05/14/23 04:26 Pulse Ox 97 05/14/23 04:26 O2 Del Method Nasal Cannula 05/14/23 04:26 O2 Flow Rate 1 05/14/23 04:26 Oxygen Flow Rate 2 05/13/23 23:32 BMI result Body Mass Index 18.0 Const: Other: Confused, restless, General: no acute distress Eyes: General: appearance normal, both eyes and all related structures Resp: Effort & Inspection: normal respiratory effort Cardio: Rate: regular rate Rhythm: regular rhythm GI: Palpation (GI): Soft to palpation Auscultation: normal bowel sounds Skin: Other: Mucosal membranes dry General skin exam: no rashes or lesions noted Extrem: General: Yes normal to inspection and Yes no pedal edema Results Labs 05/13/23 21:23 05/13/23 21:23 Labs: Laboratory Results - last 24 hr 05/13/23 05/13/23 05/13/23 21:23 21:37 21:44 MCV 90.7 MCH 28.6 MCHC 31.5 RDW 13.6 Plt Count 324 D MPV 9.8 Immature Gran % (Auto) 0.5 H Neut % (Auto) 69.1 Lymph % (Auto) 15.5 L [place] % (Auto) 14.0 H Eos % (Auto) 0.3 Baso % (Auto) 0.6 Lymph # (Auto) 1.3 [place] # (Auto) 1.2 Eos # (Auto) 0.0 Baso # (Auto) 0.1 Abs Immat Gran (auto) 0.04 H Absolute Neuts (auto) 6.0 Absolute Nucleated RBC 0.000 Nucleated RBC % (auto) 0.0 PT 14.9 H INR 1.2 H VBG pH 7.48 H VBG pCO2 39 VBG pO2 124 VBG HCO3 29 H VBG O2 Saturation 99.0 VBG Base Excess 5.8 Anion Gap 17 Estim Creat Clear Calc 50.9 Estimated GFR > 60 Random Glucose 112 Lactic Acid 1.5 Calcium 9.3 D Magnesium 2.5 Total Bilirubin 0.8 Direct Bilirubin 0.4 AST 19 ALT < 5 Alkaline Phosphatase 96 Total Creatine Kinase 292 H C-Reactive Protein 8.24 H B-Natriuretic Peptide 3272 H Total Protein 7.3 Albumin 3.7 Lipase 32 Procalcitonin 0.08 TSH 1.22 Urine Color Urine Appearance Urine pH Ur Specific [place] Urine Protein Urine Glucose (UA) Urine Ketones Urine Blood Urine Nitrite Ur Leukocyte Esterase Urine RBC Urine WBC Ur Squamous Epith Cells Urine Bacteria Hyaline Casts Digoxin 0.4 L Ethyl Alcohol < 10 COVID-19 (MIR) COVID-19 Clin Com Influenza Type A (SUSAN) Influenza Type B (SUSAN) Influenza A & B Note Blood Type Antibody Screen 05/13/23 05/13/23 05/13/23 21:45 21:55 21:57 MCV MCH MCHC RDW Plt Count MPV Immature Gran % (Auto) Neut % (Auto) Lymph % (Auto) [place] % (Auto) Eos % (Auto) Baso % (Auto) Lymph # (Auto) [place] # (Auto) Eos # (Auto) Baso # (Auto) Abs Immat Gran (auto) Absolute Neuts (auto) Absolute Nucleated RBC Nucleated RBC % (auto) PT INR VBG pH VBG pCO2 VBG pO2 VBG HCO3 VBG O2 Saturation VBG Base Excess Anion Gap Estim Creat Clear Calc Estimated GFR Random Glucose Lactic Acid Calcium Magnesium Total Bilirubin Direct Bilirubin AST ALT Alkaline Phosphatase Total Creatine Kinase C-Reactive Protein B-Natriuretic Peptide Total Protein Albumin Lipase Procalcitonin TSH Urine Color Dark Yellow Urine Appearance Clear Urine pH 5.5 Ur Specific [place] >= 1.030 H Urine Protein 100 (2+) H Urine Glucose (UA) >=1000 H Urine Ketones Trace Urine Blood Negative Urine Nitrite Negative Ur Leukocyte Esterase Negative Urine RBC 0-2 Urine WBC 0-5 Ur Squamous Epith Cells 0-2 Urine Bacteria None Seen Hyaline Casts 3-5 Digoxin Ethyl Alcohol COVID-19 (MIR) Negative COVID-19 Clin Com See Note Influenza Type A (SUSAN) Influenza Type B (SUSAN) Influenza A & B Note Blood Type A Positive Antibody Screen NEGATIVE 05/13/23 05/14/23 23:41 00:40 MCV MCH MCHC RDW Plt Count MPV Immature Gran % (Auto) Neut % (Auto) Lymph % (Auto) [place] % (Auto) Eos % (Auto) Baso % (Auto) Lymph # (Auto) [place] # (Auto) Eos # (Auto) Baso # (Auto) Abs Immat Gran (auto) Absolute Neuts (auto) Absolute Nucleated RBC Nucleated RBC % (auto) PT INR VBG pH VBG pCO2 VBG pO2 VBG HCO3 VBG O2 Saturation VBG Base Excess Anion Gap Estim Creat Clear Calc Estimated GFR Random Glucose Lactic Acid 1.3 Calcium Magnesium Total Bilirubin Direct Bilirubin AST ALT Alkaline Phosphatase Total Creatine Kinase C-Reactive Protein B-Natriuretic Peptide Total Protein Albumin Lipase Procalcitonin TSH Urine Color Urine Appearance Urine pH Ur Specific [place] Urine Protein Urine Glucose (UA) Urine Ketones Urine Blood Urine Nitrite Ur Leukocyte Esterase Urine RBC Urine WBC Ur Squamous Epith Cells Urine Bacteria Hyaline Casts Digoxin Ethyl Alcohol COVID-19 (MIR) COVID-19 Clin Com Influenza Type A (SUSAN) Negative Influenza Type B (SUSAN) Negative Influenza A & B Note See Note Blood Type Antibody Screen Imaging Radiologist's Impressions: Impressions Chest X-Ray 05/13/23 21:48 IMPRESSION: Unremarkable examination. Cervical Spine CT 05/13/23 22:44 IMPRESSION: Negative acute noncontrast CT of the brain. Once again atrophy and white matter ischemic changes. No acute fracture or dislocation in the spine. Degenerative change in hardware noted. Head CT 05/13/23 22:44 IMPRESSION: Negative acute noncontrast CT of the brain. Once again atrophy and white matter ischemic changes. No acute fracture or dislocation in the spine. Degenerative change in hardware noted. Chest CT 05/14/23 03:38 IMPRESSION: 1. Limited detailed evaluation of the lungs due to respiratory motion artifact. Interlobular septal thickening in some regions suggests mild interstitial edema. No focal consolidation. Dependent opacities in bilateral lower lobes are more suggestive of atelectasis. 2. Cardiomegaly. 3. Healing anterior left third through fifth rib fractures. 4. Coronary artery calcifications. Correlation with cardiac risk factors is recommended. Assessment and Plan (1) Atrial fibrillation with rapid ventricular response: Status: Acute (2) Elevated troponin: Status: Acute (3) Fever: Qualifiers: Fever type: unspecified Qualified Code(s): R50.9 - Fever, unspecified Status: Acute (4) SIRS (systemic inflammatory response syndrome): Status: Acute Plan 68-year-old male past medical history of AFib on Eliquis, CHF with ejection fraction of 15-20% presents the hospital with failure to thrive, decreased oral intake found to have multiple abnormalities # AFib with RVR - possibly driven by fever, versus CHF exacerbation - resolved with fluids - will continue home metoprolol [facility] # elevated troponin - likely type 2 in the setting of AFib with RVR - monitor # febrile - unclear source - no leukocytosis - possibly pneumonia as seen opacities on CT scan although atelectasis is more likely - patient started on broad-spectrum antibiotics - follow cultures # meets SIRS criteria with tachycardia and fever - unclear source at this time - started on a broad-spectrum antibiotic - follow cultures # CHF - clinically patient appears to be volume depleted although his BNP significantly elevated compared to previously as well as chest CT showing edema - patient given 1 dose of Lasix as he received 30 cc/kg fluids - cardiology consulted for further recommendation # Parkinson's disease - continue carbidopa levodopa DVT prophylaxis: Diego PT OT is also consulted as well as case management for possible placement Time Spent With Patient Time: Total time managing care of this patient today ____ minutes. Quality Stroke Does the patient have a stroke diagnosis?: No VTE Prior VTE?: No VTE Risk Level:: Medical - moderate - high VTE Device Contraindication: Treatment Not Indicated VTE Drug Contraindication: N/A - Med Ordered
--- NOTE | 2023-05-14 07:14 | PC.NURSE ---
Pt on stretcher, appears weak but will answer yes or no questions and follow simple commands. Denies pain. Skin pink warm and dry. Afib on tele rate 130s. Barton drained for 600ml of dark [place] urine. Breathing unlabored. Temp from barton reading 98.1 AM labs drawn by phlebotomy. LS clear anteriorly.
[2023-05-14 07:37] LABS: MANUAL DIFF FLAG NO
[2023-05-14 07:39] LABS: Basophils Percent Auto 0.6 % (0-2); Eosinophils Absolute Auto 0.1 X10*3/uL (0.0-0.4); Eosinophils Percent Auto 1.4 % (0-4); Hematocrit 40.3 % (42.0-52.0); Hemoglobin 12.6 g/dl (14.0-18.0); Imm Gran Abs Auto 0.03 X10*3/uL (0.00-0.03); Imm Gran Pct Auto 0.5 % (0.0-0.4); Lymphocytes Absolute Auto 0.9 X10*3/uL (1.2-4.9); Lymphocytes Percent Auto 13.6 % (20-40); Mean Corpuscular HGB Conc 31.3 g/dl (31.0-36.0); Mean Corpuscular Hemoglobin 28.7 pg (27.0-33.0); Mean Corpuscular Volume 91.8 fL (80.0-98.0); Monocytes Absolute Auto 0.8 X10*3/uL (0.1-1.2); Monocytes Percent Auto 12.2 % (2-11); Neutrophils Absolute Auto 4.8 x10*3/uL (2.0-8.3); Neutrophils Percent Auto 71.7 % (45-73); Platelet Count 266 X10*3/uL (160-400); Red Blood Count 4.39 X10*6/uL (4.60-5.80); Red Cell Distribution Width 13.5 % (11.0-16.0); White Blood Count 6.6 X10*3/uL (4.8-10.8)
[2023-05-14 07:58] LABS: Alanine Aminotransferase < 5 U/L (0-40); Albumin Level 3.4 g/dL (3.5-5.0); Alkaline Phosphatase 88 U/L (39-117); Anion Gap 16 (12-20); Aspartate Amino Transferase 20 U/L (5-37); Blood Urea Nitrogen 24 mg/dL (9-16); Calcium 9.2 mg/dL (8.4-10.2); Carbon Dioxide 27 mmol/L (22-29); Chloride 108 mmol/L (96-108); Creatinine Clr Calc Pharmacy 56.5; Estimated Glomerular Filt Rate > 60; Glucose Random 91 mg/dL (60-115); Potassium 3.7 mmol/L (3.3-5.1); Sodium 147 mmol/L (135-145); Total Protein 6.7 g/dL (6.5-8.0)
--- NOTE | 2023-05-14 08:47 | PC.NURSE ---
Addendum entered by Mariel Lemos 05/14/23 10:42: pharmacy awaiting med list to complete med rec Original Note: Pharmacy called for med verification to admin meds in MAR
--- NOTE | 2023-05-14 09:14 | PC.NURSE ---
Cristy [employer] aware of HTN and elevated HR. Pt restful mostly however noted to pull at wires and monitor at times and 02 removed by pt, sat 95% on room air and left off pt. Cardiology at bedside for eval
--- NOTE | 2023-05-14 10:05 | P.CONCA_ITS ---
History of Present Illness History of Present Illness Date of Service: 05/14/23 Chief complaint: CHF, sepsis Narrative: This is a cardiology consultation regarding atrial fibrillation rapid rate. Patient has a history of Parkinson's disease, atrial fibrillation, congestive heart failure/cardiomyopathy. It seems that he has been admitted for failure to thrive. Patient not able to give any history at all. Tried numerous times but he is not able to give any clear information. In the ER, apparently had fever, tachycardia and also hypoxic. He has been started on antibiotics for presumed infection. From a cardiac standpoint, the concern is atrial fibrillation with rapid rate. However, not able to assess clinically as he is not able to give any information. Review of Systems 2 Constitutional: Comments: Not able to provide any information at all. [facility] Past Medical History Medical History Cardiomyopathy Atrial fibrillation with rapid ventricular response CHF (congestive heart failure) HTN (hypertension) Parkinson disease Family History Family History Mother CAD (coronary artery disease) Surgical History Surgical History H/O spinal fusion Social History Social History Household Members: Unknown / Unable to assess Housing: Unknown / Unable to assess Do you presently have visiting nurse or other home services: Yes Unable to assess alcohol history related to: Unable to respond Alcohol intake: never Patient Tobacco Use Status: Former Tobacco user e-Cigarette/Vaping Use: Never Used Use of substances other than those prescribed or required for medical reasons: Unable to respond Substance Use Type: Marijuana Advance Directives: Yes Advance Directives on File: Yes Advance Directives Date on File: 12/27/21 Nutrition Risks: Emaciation/Cachexia service: No Current occupational status: retired Meds Allergies Allergy/AdvReac Type Severity Reaction Status Date / Time No Known Allergies Allergy Verified 04/27/23 18:39 Active Medications: Current Medications Acetaminophen (Acetaminophen 325 Mg Tablet) 650 mg PO Q6H PRN PRN Reason: Pain, Mild (Pain Scale 1-3) Carbidopa/Levodopa (Carbidopa/Levodopa 25/100 Tablet) 2 tab PO TID@0800,1200,2100 STEPH Docusate Sodium (Docusate Sodium 100 Mg Capsule) 100 mg PO DAILY PRN PRN Reason: Constipation Escitalopram Oxalate (Escitalopram Oxalate 5 Mg Tablet) 5 mg PO DAILY [facility] Furosemide (Furosemide 40 Mg/4 Ml Vial) 40 mg IVPUSH BID@0800,1700 [facility]; Protocol Gabapentin (Gabapentin 100 Mg Capsule) 100 mg PO DAILY [facility] Gabapentin (Gabapentin 300 Mg Capsule) 300 mg PO BEDTIME [facility] Piperacillin Sod/Tazobactam (Sod 3.375 gm/ Sodium Chloride) 50 mls @ 100 mls/hr IV Q6H [facility] Vancomycin HCl 1,000 mg/ (Sodium Chloride) 270 mls @ 270 mls/hr IV Q12H [facility] Melatonin (Melatonin 3 Mg Tablet) 3 mg PO BEDTIME PRN PRN Reason: Sleep Metoprolol Succinate (Metoprolol Succinate Er 100 Mg Tab.Er.24h) 100 mg PO DAILY [facility]; Protocol Ondansetron HCl (Ondansetron Hcl 4 Mg/2 Ml Vial) 4 mg IVPUSH Q8H PRN PRN Reason: Nausea and Vomiting Pharmacy Consult (Consult Rx Vancomycin Dosing) 1 each MISCELLANE DAILY PRN PRN Reason: Consult order Quetiapine Fumarate (Quetiapine Fumarate 25 Mg Tablet) 25 mg PO BEDTIME [facility] Ropinirole HCl (Ropinirole Hcl 0.25 Mg Tablet) 0.25 mg PO BEDTIME [facility] Sodium Chloride (0.9 % Sodium Chloride Flush 3 Ml Syringe) 3 ml IVFLUSH QSHIFT [facility] Home Medications Medication Instructions Recorded Confirmed Last Taken Type carbidopa 25 mg-levodopa 100 mg 2 tab PO TID@0800,1200,2100 12/23/21 04/15/23 12/26/22 History tablet gabapentin 100 mg capsule 100 mg PO DAILY 12/23/21 04/15/23 12/26/22 History gabapentin 300 mg capsule 300 mg PO BEDTIME 12/23/21 04/15/23 12/25/22 History melatonin 3 mg tablet 3 mg PO BEDTIME PRN Sleep 12/23/21 04/15/23 Unknown History escitalopram oxalate 5 mg tablet 5 mg PO DAILY 04/10/23 04/15/23 Unknown History quetiapine 25 mg tablet 25 mg PO BEDTIME 04/10/23 04/15/23 Unknown History ropinirole 0.25 mg tablet 0.25 mg PO BEDTIME 04/10/23 04/15/23 Unknown History digoxin 125 mcg (0.125 mg) tablet 125 mcg PO Q OTHER DAY 05/14/23 Unknown History empagliflozin 10 mg tablet 10 mg PO DAILY 05/14/23 Unknown History (Jardiance) lisinopril 10 mg tablet 10 mg PO DAILY 05/14/23 Unknown History metoprolol succinate 100 mg 25 mg PO DAILY 05/14/23 Unknown History tablet,extended release 24 hr Physical Exam 2 Vital Signs: Vital Signs: Last Vital Signs Temp 99.0 F 05/14/23 09:13 Pulse 139 H 05/14/23 09:13 Resp 20 05/14/23 09:13 BP 154/106 H 05/14/23 09:13 Pulse Ox 95 05/14/23 09:13 O2 Del Method Room Air 05/14/23 09:13 O2 Flow Rate 2 05/14/23 07:13 Oxygen Flow Rate 2 05/13/23 23:32 BMI result Body Mass Index 18.0 Const: General: ill appearing, lethargic and tired appearing O rientation/consciousness: No patient oriented x3 and lethargic HEENT: Other: Unremarkable Head: Yes normal to inspection Neck: Neck: Yes normal visual inspection Chest: Chest palpation & inspection: normal inspection of the chest Resp: Other: Diminished breath sounds with minimal crackles at the bases Cardio: Palpation: normal PMI Heart sounds: S1 normal heart sound present, S2 normal heart sound present, no gallops, no murmurs and no rubs GI: Palpation (GI): Soft to palpation Back/Spine/Pelvis: Other: unremarkable Skin: General skin exam: no rashes or lesions noted Neuro: General: No patient oriented x3 Extrem: General: Yes normal to inspection Psych: Mental Status: mental status grossly abnormal Objective Labs and Meds 05/14/23 07:08 05/14/23 07:08 Lab results: Laboratory Results - last 24 hr 05/13/23 05/13/23 05/13/23 21:23 21:37 21:44 WBC 8.7 RBC 4.62 Hgb 13.2 L Hct 41.9 L MCV 90.7 MCH 28.6 MCHC 31.5 RDW 13.6 Plt Count 324 D MPV 9.8 Immature Gran % (Auto) 0.5 H Neut % (Auto) 69.1 Lymph % (Auto) 15.5 L Quay % (Auto) 14.0 H Eos % (Auto) 0.3 Baso % (Auto) 0.6 Lymph # (Auto) 1.3 Quay # (Auto) 1.2 Eos # (Auto) 0.0 Baso # (Auto) 0.1 Abs Immat Gran (auto) 0.04 H Absolute Neuts (auto) 6.0 Absolute Nucleated RBC 0.000 Nucleated RBC % (auto) 0.0 PT 14.9 H INR 1.2 H VBG pH 7.48 H VBG pCO2 39 VBG pO2 124 VBG HCO3 29 H VBG O2 Saturation 99.0 VBG Base Excess 5.8 Sodium 144 Potassium 3.8 Chloride 106 Carbon Dioxide 25 Anion Gap 17 BUN 27 H Creatinine 1.10 Estim Creat Clear Calc 50.9 Estimated GFR > 60 Random Glucose 112 Lactic Acid 1.5 Calcium 9.3 D Magnesium 2.5 Total Bilirubin 0.8 Direct Bilirubin 0.4 AST 19 ALT < 5 Alkaline Phosphatase 96 Total Creatine Kinase 292 H Troponin I High Sens 192.6 H* D C-Reactive Protein 8.24 H B-Natriuretic Peptide 3272 H Total Protein 7.3 Albumin 3.7 Lipase 32 Procalcitonin 0.08 TSH 1.22 Urine Color Urine Appearance Urine pH Ur Specific Fisher Urine Protein Urine Glucose (UA) Urine Ketones Urine Blood Urine Nitrite Ur Leukocyte Esterase Urine RBC Urine WBC Ur Squamous Epith Cells Urine Bacteria Hyaline Casts Digoxin 0.4 L Ethyl Alcohol < 10 COVID-19 (MIR) COVID-19 Clin Com Influenza Type A (SUSAN) Influenza Type B (SUSAN) Influenza A & B Note Blood Type Antibody Screen 05/13/23 05/13/23 05/13/23 21:45 21:55 21:57 WBC RBC Hgb Hct MCV MCH MCHC RDW Plt Count MPV Immature Gran % (Auto) Neut % (Auto) Lymph % (Auto) Quay % (Auto) Eos % (Auto) Baso % (Auto) Lymph # (Auto) Quay # (Auto) Eos # (Auto) Baso # (Auto) Abs Immat Gran (auto) Absolute Neuts (auto) Absolute Nucleated RBC Nucleated RBC % (auto) PT INR VBG pH VBG pCO2 VBG pO2 VBG HCO3 VBG O2 Saturation VBG Base Excess Sodium Potassium Chloride Carbon Dioxide Anion Gap BUN Creatinine Estim Creat Clear Calc Estimated GFR Random Glucose Lactic Acid Calcium Magnesium Total Bilirubin Direct Bilirubin AST ALT Alkaline Phosphatase Total Creatine Kinase Troponin I High Sens C-Reactive Protein B-Natriuretic Peptide Total Protein Albumin Lipase Procalcitonin TSH Urine Color Dark Yellow Urine Appearance Clear Urine pH 5.5 Ur Specific Fisher >= 1.030 H Urine Protein 100 (2+) H Urine Glucose (UA) >=1000 H Urine Ketones Trace Urine Blood Negative Urine Nitrite Negative Ur Leukocyte Esterase Negative Urine RBC 0-2 Urine WBC 0-5 Ur Squamous Epith Cells 0-2 Urine Bacteria None Seen Hyaline Casts 3-5 Digoxin Ethyl Alcohol COVID-19 (MIR) Negative COVID-19 Clin Com See Note Influenza Type A (SUSAN) Influenza Type B (SUSAN) Influenza A & B Note Blood Type A Positive Antibody Screen NEGATIVE 05/13/23 05/14/23 05/14/23 23:41 00:40 00:44 WBC RBC Hgb Hct MCV MCH MCHC RDW Plt Count MPV Immature Gran % (Auto) Neut % (Auto) Lymph % (Auto) Quay % (Auto) Eos % (Auto) Baso % (Auto) Lymph # (Auto) Quay # (Auto) Eos # (Auto) Baso # (Auto) Abs Immat Gran (auto) Absolute Neuts (auto) Absolute Nucleated RBC Nucleated RBC % (auto) PT INR VBG pH VBG pCO2 VBG pO2 VBG HCO3 VBG O2 Saturation VBG Base Excess Sodium Potassium Chloride Carbon Dioxide Anion Gap BUN Creatinine Estim Creat Clear Calc Estimated GFR Random Glucose Lactic Acid 1.3 Calcium Magnesium Total Bilirubin Direct Bilirubin AST ALT Alkaline Phosphatase Total Creatine Kinase Troponin I High Sens 168.6 H* C-Reactive Protein B-Natriuretic Peptide Total Protein Albumin Lipase Procalcitonin TSH Urine Color Urine Appearance Urine pH Ur Specific Fisher Urine Protein Urine Glucose (UA) Urine Ketones Urine Blood Urine Nitrite Ur Leukocyte Esterase Urine RBC Urine WBC Ur Squamous Epith Cells Urine Bacteria Hyaline Casts Digoxin Ethyl Alcohol COVID-19 (MIR) COVID-19 Clin Com Influenza Type A (SUSAN) Negative Influenza Type B (SUSAN) Negative Influenza A & B Note See Note Blood Type Antibody Screen 05/14/23 05/14/23 05/14/23 07:08 07:08 07:08 WBC 6.6 RBC 4.39 L Hgb 12.6 L Hct 40.3 L MCV 91.8 MCH 28.7 MCHC 31.3 RDW 13.5 Plt Count 266 MPV 10.0 Immature Gran % (Auto) 0.5 H Neut % (Auto) 71.7 Lymph % (Auto) 13.6 L Quay % (Auto) 12.2 H Eos % (Auto) 1.4 Baso % (Auto) 0.6 Lymph # (Auto) 0.9 L Quay # (Auto) 0.8 Eos # (Auto) 0.1 Baso # (Auto) 0.0 Abs Immat Gran (auto) 0.03 Absolute Neuts (auto) 4.8 Absolute Nucleated RBC 0.000 Nucleated RBC % (auto) 0.0 PT INR VBG pH VBG pCO2 VBG pO2 VBG HCO3 VBG O2 Saturation VBG Base Excess Sodium 147 H Potassium 3.7 Chloride 108 Carbon Dioxide 27 Anion Gap 16 BUN 24 H Creatinine 0.99 Cancelled Estim Creat Clear Calc 56.5 Cancelled Estimated GFR > 60 Random Glucose Lactic Acid Calcium Magnesium Total Bilirubin Direct Bilirubin AST ALT Alkaline Phosphatase Total Creatine Kinase Troponin I High Sens C-Reactive Protein B-Natriuretic Peptide Total Protein Albumin Lipase Procalcitonin TSH Urine Color Urine Appearance Urine pH Ur Specific Fisher Urine Protein Urine Glucose (UA) Urine Ketones Urine Blood Urine Nitrite Ur Leukocyte Esterase Urine RBC Urine WBC Ur Squamous Epith Cells Urine Bacteria Hyaline Casts Digoxin Ethyl Alcohol COVID-19 (MIR) COVID-19 Clin Com Influenza Type A (SUSAN) Influenza Type B (SUSAN) Influenza A & B Note Blood Type Antibody Screen 05/14/23 07:08 WBC RBC Hgb Hct MCV MCH MCHC RDW Plt Count MPV Immature Gran % (Auto) Neut % (Auto) Lymph % (Auto) Quay % (Auto) Eos % (Auto) Baso % (Auto) Lymph # (Auto) Quay # (Auto) Eos # (Auto) Baso # (Auto) Abs Immat Gran (auto) Absolute Neuts (auto) Absolute Nucleated RBC Nucleated RBC % (auto) PT INR VBG pH VBG pCO2 VBG pO2 VBG HCO3 VBG O2 Saturation VBG Base Excess Sodium Potassium Chloride Carbon Dioxide Anion Gap BUN Creatinine Estim Creat Clear Calc Estimated GFR Cancelled Random Glucose 91 Lactic Acid Calcium 9.2 Magnesium Total Bilirubin 1.0 Direct Bilirubin AST 20 ALT < 5 Alkaline Phosphatase 88 Total Creatine Kinase Troponin I High Sens C-Reactive Protein B-Natriuretic Peptide Total Protein 6.7 Albumin 3.4 L Lipase Procalcitonin TSH Urine Color Urine Appearance Urine pH Ur Specific Fisher Urine Protein Urine Glucose (UA) Urine Ketones Urine Blood Urine Nitrite Ur Leukocyte Esterase Urine RBC Urine WBC Ur Squamous Epith Cells Urine Bacteria Hyaline Casts Digoxin Ethyl Alcohol COVID-19 (MIR) COVID-19 Clin Com Influenza Type A (SUSAN) Influenza Type B (SUSAN) Influenza A & B Note Blood Type Antibody Screen ECG Interpretation: Atrial fibrillation with rapid rate at 01:47/Min; lateral ST depression in V5 V6 which could be from ischemia or LVH/strain pattern. This is more pronounced than a prior EKG from last month but the heart rate was also much slower at that time. Hence that plays a role. Imaging Radiologist's impression: Impressions Chest X-Ray 05/13/23 21:48 IMPRESSION: Unremarkable examination. Cervical Spine CT 05/13/23 22:44 IMPRESSION: Negative acute noncontrast CT of the brain. Once again atrophy and white matter ischemic changes. No acute fracture or dislocation in the spine. Degenerative change in hardware noted. Head CT 05/13/23 22:44 IMPRESSION: Negative acute noncontrast CT of the brain. Once again atrophy and white matter ischemic changes. No acute fracture or dislocation in the spine. Degenerative change in hardware noted. Chest CT 05/14/23 03:38 IMPRESSION: 1. Limited detailed evaluation of the lungs due to respiratory motion artifact. Interlobular septal thickening in some regions suggests mild interstitial edema. No focal consolidation. Dependent opacities in bilateral lower lobes are more suggestive of atelectasis. 2. Cardiomegaly. 3. Healing anterior left third through fifth rib fractures. 4. Coronary artery calcifications. Correlation with cardiac risk factors is recommended. Assessment and Plan (1) Atrial fibrillation with rapid ventricular response: Status: Acute (2) Elevated troponin: Status: Acute (3) SIRS (systemic inflammatory response syndrome): Status: Acute (4) Cardiomyopathy: Status: Acute Plan In the most recent echocardiogram, LVEF 15 20%. Moderate to severely depressed right ventricular systolic function. Dilated atria. Troponin levels are 43, 192 and 168. Cardiac BNP over 3000. With regard to reconcile home meds, he seems to be on metoprolol ER 25 mg daily and digoxin 125 mcg alternate days with Eliquis. Current meds listed as Toprol-XL 100 mg daily and hence not clear as to what is the correct dose. We need to consult this and give the medication as long as able to take p.o.. If not may need to use IV route. Add digoxin as well. Anticoagulation as before. Overall, guarded prognosis. Goals of care will need to be decided. Discussed with Cristy Spangler. Time Spent With Patient Time: Total time managing care of this patient today ____ minutes. Procedures Date of Service Date of Service: 05/14/23
[2023-05-14] MEDS: Furosemide 40 MG/4 ML VIAL IVPUSH ×2 (10:09→16:48)
[2023-05-14] MEDS: 0.9 % Sodium Chloride Flush 3 ML SYRINGE IVFLUSH ×2 (10:10→20:06)
[2023-05-14] MEDS: Metoprolol Succinate ER 100 MG TAB.ER.24H PO (10:10)
[2023-05-14] MEDS: Piperacillin Sodium/Tazobactam 3.375 GM in 0.9 % Sodium Chloride 50 ML IV ×3 (10:10→20:05)
--- NOTE | 2023-05-14 10:23 | PM.EVENT ---
Event Note Date of Service: 05/14/23 Event Note: 68-year-old male past medical history of AFib on Eliquis, CHF with ejection fraction of 15-20% presents the hospital with failure to thrive, decreased oral intake found to have multiple abnormalities acute on chronic AFib with RVR possibly driven by fever, versus CHF exacerbation given IV fluids in ED last echo 03/2023 with EF of 15-20% Digoxin loaded Metoprolol 100 mg now and daily on eliquis cardiology following HFrEF acute on chronic IV lasix does not appear to be in overt failure, although BNP over 3000 clinically patient appearsed to be volume depleted in the ED and was given IV fluid bolus of 30ml/kg On jardiance at home elevated troponin likely type 2 in the setting of AFib with RVR monitor SIRS tachycardia and fever no clear source patient started on broad-spectrum antibiotics follow cultures Parkinson's disease continue carbidopa levodopa mental health continue home medications DVT prophylaxis: Diego Attending Dr. Dinh Time Spent With Patient Time: Total time managing care of this patient today ____ minutes.
--- NOTE | 2023-05-14 10:24 | PC.NURSE ---
Pt pulled out left sided IV. Hospital gown changed, Current IV on right arm wrapped. Mediated as charted, meds given whole in pudding. Remains tachy/HTN, Metoprolol given
--- NOTE | 2023-05-14 10:41 | PHA.MEDREC ---
Addendum entered by Bisi Hernandez [facility] 05/14/23 13:11: Eliquis left unconfirmed as EMS passed off patient stating he has not be on it for 2-3 weeks due to increased falls Original Note: Pharmacy Consult ? Medication Reconciliation Pharmacy has completed the medication reconciliation. Patient came with a list from [facility], I believe this is a facility for VNAs. The list seems to be outdated. I called facility x 3 to get an updated list and never received anything. Chose to go off patients recent pharmacy claims.
--- NOTE | 2023-05-14 12:43 | P.CDIM_ITS ---
PROVIDER RESPONSE TEXT: To clarify, the appropriate diagnosis supported by the clinical indicators: Other (explain): demand from afib QUERY TEXT: PHYSICIAN'S DOCUMENTATION REQUEST Date of Query: 05/14/2023 12:13 PM EDT Patient Name: David Julio Admit Date: 05/14/2023 Dear Cristy Spangler, A review of the medical record indicates additional documentation may be needed. Please review below and update the documentation accordingly. Clinical indicators: ED: Patient's high sensitive troponin 1 was elevated at 192.6, this is most likely secondary to type 2 myocardial injury due to infection and tachycardia. Repeat troponin was 168.6 which was not elevated and actually lower suggesting that the patient may b e type 2 myocardial injury. PN: Elevated troponin, likely type 2 in the setting of Afib w RVR. monitor Please clarify the type of the documented myocardial infarction: Myocardial infarction Type 2 Other please specify Other (explain)Clinically unable to determine (explain)Thank you, Eleni Muñiz, CCS, CDIS Use of terms such as suspected, likely, concern for, or probable (associated with a specific diagnosi s that is being evaluated, monitored, or treated as if it exists) are acceptable and can be coded in the inpatient se tting, when documented at the time of discharge. Please use your independent medical judgment in providing your response. THIS QUERY IS PART OF THE PERMANENT MEDICAL RECORD
[2023-05-14 12:49] LABS: Troponin-I High Sensitivity 98.2 ng/L (<3.5-35.0)
[2023-05-14] MEDS: vancomycin HCL 1,500 MG in 0.9 % Sodium Chloride 500 ML 333.33 MG IV (12:54)
[2023-05-14] MEDS: Carbidopa/Levodopa 25/100 TABLET 2 TAB PO ×2 (12:56→20:06)
[2023-05-14] MEDS: lisinopriL 10 MG TABLET PO (12:56)
[2023-05-14] MEDS: Digoxin 0.25 MG TABLET PO (12:57)
[2023-05-14] MEDS: Gabapentin 100 MG CAPSULE 200 MG PO (12:57)
[2023-05-14] MEDS: Escitalopram Oxalate 5 MG TABLET PO (12:57)
--- NOTE | 2023-05-14 13:08 | PHA.PROG ---
Admission Date/Time: May 14, 2023 02:28 Indication: SEPSIS Weight in k.8 kg Adjusted body weight in Kg: [place] body weight in Kg: Obesity Dosing Indication % IBW: Serum Creatinine - Last 168 Hours 05/13/23 05/14/23 05/14/23: 07:08 07:08 Creatinine 1.10 0.99 Cancelled Estimated CrCl and GFR - Last 168 Hours 05/13/23 05/14/23 05/14/23: 07:08 07:08 Estim Creat Clear Calc 50.9 56.5 Cancelled Estimated GFR > 60 > 60 05/14/23 07:08 Estim Creat Clear Calc Estimated GFR Cancelled Vancomycin Loading Dose: 1500 Current Vancomycin Dosing Regimen: 1000 Q24H Vancomycin Monitoring using AUC goal of 400 - 600 range with trough as surrogate marker: AUC 407, TROUGH 11.3 Date and Time for next Vancomycin Level to be drawn: 05/16 @ 1100 Pharmacist Comments on Vancomycin Plan: Vancomycin dosing will take advantage of [employer] as a clinical decision support tool that uses Bayesian modeling to calculate individual patient's pharmacokinetic parameters and forecast the patient's drug concentration time course with the target goal AUC 24 range of 400 - 600 mg/L/hr.
[2023-05-14] MEDS: Acetaminophen 325 MG TABLET 650 MG PO (13:42)
--- NOTE | 2023-05-14 13:54 | MHC.CM.PN ---
CM met with Patient and his Significant Other/HCP/Meena and addressed IMM with them (original was given to Meena and a copy has been placed on the chart). Patient lives in a house with Meena and he mostly uses a w/c for mobility. Patient is active with [facility] and home/resume said services is the goal. CM has initiated and will follow for dc planning. PCP is Dr. Lachelle Simon.
--- NOTE | 2023-05-14 15:09 | PC.NURSE ---
Addendum entered by Ivan Gutiérrez RN 05/14/23 15:15: L hip hematoma and bruising. scattered bruising d/t hx of falls Original Note: Report taken from ED RN. Pt arrived w/ no AM meds administered d/t pharmacy requiring verification of med rec per ED RN. Pharmacy contacted and OK'd meds. Per pharmacy hold 1g of Vanco but administer 1.5g. Pt family member at bedside, CM informed and spoke w/ family member. wounds noted to pt's L shoulder, L knee and buttocks area. Buttocks stage 3 w/ surrounding redness, scabs to L shoulder and L knee and to forehead. Pt L shoulder appeared displaced upon assessment. Md informed. pt had no c/o pain or discomfort but has LROM.
[2023-05-14] MEDS: Digoxin 0.125 MG TABLET PO ×2 (16:48→23:01)
[2023-05-14] MEDS: Gabapentin 300 MG CAPSULE PO (20:06)
[2023-05-14] MEDS: QUEtiapine Fumarate 25 MG TABLET PO (20:06)
[2023-05-15] MEDS: Piperacillin Sodium/Tazobactam 3.375 GM in 0.9 % Sodium Chloride 50 ML IV ×2 (00:38→06:06)
[2023-05-15 03:20] VITALS: BP 90/65; PULSE 62; RESP 18; TEMP 36.1; O2SAT 96
[2023-05-15 07:30] LABS: Creatinine Clr Calc Pharmacy 35.6; Estimated Glomerular Filt Rate 44
--- NOTE | 2023-05-15 07:54 | HE.PHANOTE ---
RE VANCO SCR INCREASED TO 1.57. REDUCED MAINTANENCE DOSE TO 750 Q24H, SUSPECTED AUC 429, TROUGH 13.5 FAN
[2023-05-15 08:00] VITALS: BP 121/71; PULSE 63; RESP 22; TEMP 36.3; O2SAT 96
[2023-05-15 08:49] LABS: Anion Gap 13 (12-20); Blood Urea Nitrogen 31 mg/dL (9-16); Calcium 8.7 mg/dL (8.4-10.2); Carbon Dioxide 30 mmol/L (22-29); Chloride 109 mmol/L (96-108); Glucose Random 88 mg/dL (60-115); Sodium 149 mmol/L (135-145)
--- NOTE | 2023-05-15 09:23 | P.PNIM_ITS ---
Subjective Subjective Date of Service: 05/15/23 Interval History: Follow up afib rvr doing better today HR under better control sitting up eating breakfast Review of Systems Review of Systems: Yes all other systems are reviewed and are negative Physical Exam 2 Vital Signs: Vital Signs: Last Vital Signs Temp 97.4 F 05/15/23 08:00 Pulse 63 05/15/23 08:00 Resp 22 H 05/15/23 08:00 BP 121/71 05/15/23 08:00 Pulse Ox 96 05/15/23 08:00 O2 Del Method Room Air 05/15/23 08:00 O2 Flow Rate 2 05/14/23 07:13 Oxygen Flow Rate 2 05/13/23 23:32 BMI result Body Mass Index 18.0 Appearing in no acute distress lung sounds are clear to auscultation heart regular rate rhythm, clear S1, S2 positive bowel sounds, abdomen is soft, nontender neuro patient alert, confused Objective Data Active Medications Acetaminophen (Acetaminophen 325 Mg Tablet) 650 mg PO Q6H PRN PRN Reason: Pain, Mild (Pain Scale 1-3) Last Admin: 05/14/23 13:42 Dose: 650 mg Documented By: KIMBERLY Apixaban (Apixaban 5 Mg Tablet) 5 mg PO BID [facility] Carbidopa/Levodopa (Carbidopa/Levodopa 25/100 Tablet) 2 tab PO TID@0800,1200,2100 [facility] Last Admin: 05/14/23 20:06 Dose: 2 tab Documented By: SCARLETT Docusate Sodium (Docusate Sodium 100 Mg Capsule) 100 mg PO DAILY PRN PRN Reason: Constipation Escitalopram Oxalate (Escitalopram Oxalate 5 Mg Tablet) 5 mg PO DAILY [facility] Last Admin: 05/14/23 12:57 Dose: 5 mg Documented By: KIMBERLY Furosemide (Furosemide 40 Mg/4 Ml Vial) 40 mg IVPUSH BID@0800,1700 [facility]; Protocol Last Admin: 05/14/23 16:48 Dose: 40 mg Documented By: KIMBERLY Gabapentin (Gabapentin 100 Mg Capsule) 200 mg PO DAILY [facility] Last Admin: 05/14/23 12:57 Dose: 200 mg Documented By: KIMBERLY Gabapentin (Gabapentin 300 Mg Capsule) 300 mg PO BEDTIME [facility] Last Admin: 05/14/23 20:06 Dose: 300 mg Documented By: SCARLETT Lisinopril (Lisinopril 10 Mg Tablet) 10 mg PO DAILY [facility]; Protocol Last Admin: 05/14/23 12:56 Dose: 10 mg Documented By: KIMBERLY Melatonin (Melatonin 3 Mg Tablet) 3 mg PO BEDTIME PRN PRN Reason: Sleep Metoprolol Succinate (Metoprolol Succinate Er 100 Mg Tab.Er.24h) 100 mg PO DAILY [facility]; Protocol Last Admin: 05/14/23 10:10 Dose: 100 mg Documented By: LUCIANO Ondansetron HCl (Ondansetron Hcl 4 Mg/2 Ml Vial) 4 mg IVPUSH Q8H PRN PRN Reason: Nausea and Vomiting Pharmacy Consult (Consult Rx Vancomycin Dosing) 1 each MISCELLANE DAILY PRN PRN Reason: Consult order Potassium Chloride (Potassium Chloride Er 20 Meq Tab.Er.Prt) 20 meq PO BID [facility] Quetiapine Fumarate (Quetiapine Fumarate 25 Mg Tablet) 25 mg PO BEDTIME [facility] Last Admin: 05/14/23 20:06 Dose: 25 mg Documented By: SCARLETT Sodium Chloride (0.9 % Sodium Chloride Flush 3 Ml Syringe) 3 ml IVFLUSH QSHIFT [facility] Last Admin: 05/14/23 20:06 Dose: 3 ml Documented By: SCARLETT Labs 05/14/23 07:08 05/15/23 07:00 Labs: Laboratory Results - last 24 hr 05/15/23 07:00 Hold Purple Top SEE NOTE Anion Gap 13 Estim Creat Clear Calc 35.6 Estimated GFR 44 Random Glucose 88 Calcium 8.7 Microbiology Microbiology Results: Microbiology 05/13/23 21:57 Blood Culture - Preliminary Blood - Venous No growth after 24 hours. 05/13/23 21:23 Blood Culture - Preliminary Blood - Venous No growth after 24 hours. Assessment and Plan (1) Atrial fibrillation with rapid ventricular response: Status: Acute Plan 68-year-old male past medical history of AFib on Eliquis, CHF with ejection fraction of 15-20% presents the hospital with failure to thrive, decreased oral intake found to have multiple abnormalities GABO. Unknown etiology, possibly related to vancomycin Vancomycin stopped as well as lasix Will give 500 mL IV fluid at 75 an hour Recheck BMP this evening Hypokalemia Replete Hypernatremia Likely secondary to hypovolemia Will give 500 mL IV fluid at 75 an hour Recheck BMP this evening acute on chronic AFib with RVR. Resolved possibly driven by fever, versus CHF exacerbation given IV fluids in ED last echo 03/2023 with EF of 15-20% Digoxin loaded Metoprolol 100 mg now and daily on eliquis cardiology following HFrEF acute on chronic IV lasix does not appear to be in overt failure, although BNP over 3000 clinically patient appeared to be volume depleted in the ED and was given IV fluid bolus of 30ml/kg On jardiance at home elevated troponin likely type 2 in the setting of AFib with RVR monitor SIRS. Resolved tachycardia and fever although tachycardia was likely related to rapid ventricular response no clear source patient started on broad-spectrum antibiotics negative blood cultures after 24 hours Parkinson's disease continue carbidopa levodopa mental health continue home medications Mod malnutrition/BMI 18 add ensure to diet DVT prophylaxis: Diego Attending Dr. Bri gtz, had conversation with significant other Emerita. She stated that she would discuss code status with patient to revisit the possibility of DNR /DNI. Continue hospitalization for treatment of multiple electrolyte abnormalities Time Spent With Patient Time: Total time managing care of this patient today ____ minutes. Quality Stroke Does the patient have a stroke diagnosis?: No VTE Prior VTE?: No VTE Risk Level:: Medical - moderate - high VTE Device Contraindication: Treatment Not Indicated VTE Drug Contraindication: N/A - Med Ordered
[2023-05-15] MEDS: Furosemide 40 MG/4 ML VIAL IVPUSH (09:47)
[2023-05-15] MEDS: Metoprolol Succinate ER 100 MG TAB.ER.24H PO (09:47)
[2023-05-15] MEDS: Potassium Chloride ER 20 MEQ TAB.ER.PRT PO ×2 (09:47→20:49)
[2023-05-15] MEDS: Escitalopram Oxalate 5 MG TABLET PO (09:48)
[2023-05-15] MEDS: Gabapentin 100 MG CAPSULE 200 MG PO (09:48)
[2023-05-15] MEDS: 0.9 % Sodium Chloride Flush 3 ML SYRINGE IVFLUSH ×2 (09:48→20:49)
[2023-05-15] MEDS: Apixaban 5 MG TABLET PO ×2 (09:48→20:49)
[2023-05-15] MEDS: Carbidopa/Levodopa 25/100 TABLET 2 TAB PO ×3 (09:48→20:49)
[2023-05-15] MEDS: lisinopriL 10 MG TABLET PO (09:48)
[2023-05-15] MEDS: 0.9 % Sodium Chloride 500 ML 75 ML IVCONT (09:48)
--- NOTE | 2023-05-15 09:55 | PM.PNCARD ---
Subjective Subjective Date of Service: 05/15/23 Interval history: He seems a bit better. However, still not too communicative. Review of Systems Review of Systems Still not able to provide full review of systems. Physical Exam Vital Signs: Last Vital Signs Temp 97.4 F 05/15/23 08:00 Pulse 63 05/15/23 08:00 Resp 22 H 05/15/23 08:00 BP 121/71 05/15/23 08:00 Pulse Ox 96 05/15/23 08:00 O2 Del Method Room Air 05/15/23 08:00 O2 Flow Rate 2 05/14/23 07:13 Oxygen Flow Rate 2 05/13/23 23:32 BMI result Body Mass Index 18.0 Const General: ill appearing, lethargic and tired appearing Orientation/consciousness: No patient oriented x3 and lethargic HEENT Other: Unremarkable Head: Yes normal to inspection Neck Neck: Yes normal visual inspection Chest Chest palpation & inspection: normal inspection of the chest Resp Other: Diminished breath sounds with minimal crackles at the bases Cardio Palpation: normal PMI Heart sounds: S1 normal heart sound present, S2 normal heart sound present, no gallops, no murmurs and no rubs GI Palpation (GI): Soft to palpation Back/Spine/Pelvis Other: unremarkable Skin General skin exam: no rashes or lesions noted Neuro General: No patient oriented x3 Extrem General: Yes normal to inspection Psych Mental Status: mental status grossly abnormal Objective Labs and Meds 05/14/23 07:08 05/15/23 07:00 Lab results: Laboratory Results - last 24 hr 05/14/23 05/15/23 11:22 07:00 Hold Purple Top SEE NOTE Sodium 149 H Potassium 3.0 L Chloride 109 H Carbon Dioxide 30 H Anion Gap 13 BUN 31 H Creatinine 1.57 H Estim Creat Clear Calc 35.6 Estimated GFR 44 Random Glucose 88 Calcium 8.7 Troponin I High Sens 98.2 H Progress Note: A&P Assessment and plan (1) Atrial fibrillation with rapid ventricular response: Status: Inactive (2) Cardiomyopathy: Status: Acute Plan On telemetry, ventricular rate is significantly improved compared to yesterday. It is only in the 60s to 70s. Labs are somewhat abnormal with high sodium, low potassium and worsening renal function. May continue beta-blockers but hold off on digoxin at this time. Anticoagulation. Can hold off on diuretics IV again due to renal dysfunction. Overall prognosis is still guarded considering frailty, comorbidities and significant cardiac dysfunction. Discussed with Cristy Spangler. Time Spent With Patient Time: Total time managing care of this patient today 45 minutes. This includes time spent in evaluating patient, discussed with hospitalist, documentation, coordination of care. Progress Note: Quality Stroke Does the patient have a stroke diagnosis?: No Procedures Date of Service Date of Service: 05/15/23
[2023-05-15 10:49] VITALS: BMI 18.0
--- NOTE | 2023-05-15 10:55 | MHC.CLN ---
PT IS MODERATELY MALNOURISHED PT WITH MILDLY DEPLETED SUBCUTANEOUS FAT AND MUSCLE MASS, BMI 18 WITH 26% SIGNIFICANT WT LOSS X 6 MONTHS AND CHRONIC POOR PO INTAKE <50% PT WITH INCREASED NUTRITION RISK R/T PRESSURE INJURY DIET RX: REGULAR-APPROPRIATE RECOMMEND ADDING MAGIC CUP AND ENSURE MAX BID TO PROMOTE WOUND HEALING MONITOR PO INTAKE AND ENCOURAGE SUPPLEMENTS SEE ALSO FULL CLINICAL NUTRITION ASSESSMENT
[2023-05-15 12:00] VITALS: BP 133/73; PULSE 73; RESP 20; TEMP 36.4; O2SAT 94
[2023-05-15 12:57] LABS: Anion Gap 12 (12-20); Blood Urea Nitrogen 32 mg/dL (9-16); Calcium 8.7 mg/dL (8.4-10.2); Carbon Dioxide 34 mmol/L (22-29); Chloride 108 mmol/L (96-108); Creatinine Clr Calc Pharmacy 37.3; Estimated Glomerular Filt Rate 46; Glucose Random 77 mg/dL (60-115); Potassium 3.1 mmol/L (3.3-5.1); Sodium 151 mmol/L (135-145)
[2023-05-15 15:38] VITALS: BP 119/69; PULSE 105; RESP 19; TEMP 37.2; O2SAT 94
[2023-05-15 20:00] VITALS: BP 117/71; PULSE 98; RESP 20; TEMP 37.6; O2SAT 92
[2023-05-15] MEDS: Gabapentin 300 MG CAPSULE PO (20:49)
[2023-05-15] MEDS: QUEtiapine Fumarate 25 MG TABLET PO (20:49)
[2023-05-15 22:50] VITALS: BP 120/71; PULSE 84; RESP 18; TEMP 37.1; O2SAT 92
[2023-05-16] VITALS (7 sets, daily range): BP systolic 99–128; BP diastolic 57–70; PULSE 73–104; RESP 16–30; TEMP 36.6–38.2; O2SAT 86–93
[2023-05-16 06:40] LABS: Anion Gap 12 (12-20); Blood Urea Nitrogen 43 mg/dL (9-16); Calcium 8.9 mg/dL (8.4-10.2); Carbon Dioxide 26 mmol/L (22-29); Chloride 115 mmol/L (96-108); Creatinine Clr Calc Pharmacy 41.7; Estimated Glomerular Filt Rate 53; Glucose Random 103 mg/dL (60-115); Potassium 3.4 mmol/L (3.3-5.1); Sodium 150 mmol/L (135-145)
[2023-05-16] MEDS: Apixaban 5 MG TABLET PO (09:09)
[2023-05-16] MEDS: Potassium Chloride ER 20 MEQ TAB.ER.PRT PO (09:09)
[2023-05-16] MEDS: Metoprolol Succinate ER 100 MG TAB.ER.24H PO (09:09)
[2023-05-16] MEDS: Escitalopram Oxalate 5 MG TABLET PO (09:09)
[2023-05-16] MEDS: Furosemide 40 MG/4 ML VIAL IVPUSH (09:10)
[2023-05-16] MEDS: lisinopriL 10 MG TABLET PO (09:10)
[2023-05-16] MEDS: Gabapentin 100 MG CAPSULE 200 MG PO (09:10)
[2023-05-16] MEDS: Carbidopa/Levodopa 25/100 TABLET 2 TAB PO ×2 (09:12→12:06)
[2023-05-16] MEDS: 0.9 % Sodium Chloride Flush 3 ML SYRINGE IVFLUSH ×2 (09:19→21:18)
[2023-05-16] MEDS: Dextrose 5 % 1,000 ML 75 ML IVCONT ×2 (09:19→21:18)
--- NOTE | 2023-05-16 10:40 | MHC.CLN ---
F/U PT IS MODERATELY MALNOURISHED SEE ALSO FULL CLINICAL NUTRITION ASSESSMENT DATED 05/15/23 PT WITH INCREASED NUTRITION RISK R/T PRESSURE INJURY PO INTAKE 25-75%; FAIR TO GOOD DIET RX: REGULAR-APPROPRIATE PT RECEIVING MAGIC CUP AND ENSURE MAX BID TO PROMOTE WOUND HEALING MONITOR PO INTAKE AND ENCOURAGE SUPPLEMENTS
--- NOTE | 2023-05-16 11:04 | MHC.CM.PN ---
Per MD rounds, patient not medically cleared for DC at this time. PT recommending STR, referrals in place. CM will continue to follow.
--- NOTE | 2023-05-16 11:55 | HO.PM.IMPN ---
Subjective Subjective Date of Service: 05/16/23 Interval History: Follow up afib rvr doing better today HR under better sitting up eating breakfast Review of Systems Review of Systems: Yes all other systems are reviewed and are negative Physical Exam Vital Signs: Vital Signs: Last Vital Signs Temp 98.1 F 05/16/23 11:22 Pulse 90 05/16/23 11:22 Resp 16 05/16/23 11:22 BP 99/64 05/16/23 11:22 Pulse Ox 92 05/16/23 11:22 O2 Del Method Room Air 05/16/23 11:22 O2 Flow Rate 2 05/14/23 07:13 Oxygen Flow Rate 2 05/13/23 23:32 BMI result Body Mass Index 18.0 Appearing in no acute distress lung sounds are clear to auscultation heart regular rate rhythm, clear S1, S2 positive bowel sounds, abdomen is soft, nontender neuro patient is alert, confused Objective Data Active Medications Acetaminophen (Acetaminophen 325 Mg Tablet) 650 mg PO Q6H PRN PRN Reason: Pain, Mild (Pain Scale 1-3) Last Admin: 05/14/23 13:42 Dose: 650 mg Documented By: KIMBERLY Apixaban (Apixaban 5 Mg Tablet) 5 mg PO BID [facility] Last Admin: 05/16/23 09:09 Dose: 5 mg Documented By: JONATHON Carbidopa/Levodopa (Carbidopa/Levodopa 25/100 Tablet) 2 tab PO TID@0800,1200,2100 [facility] Last Admin: 05/16/23 09:12 Dose: 2 tab Documented By: JONATHON Docusate Sodium (Docusate Sodium 100 Mg Capsule) 100 mg PO DAILY PRN PRN Reason: Constipation Escitalopram Oxalate (Escitalopram Oxalate 5 Mg Tablet) 5 mg PO DAILY [facility] Last Admin: 05/16/23 09:09 Dose: 5 mg Documented By: JONATHON Furosemide (Furosemide 40 Mg/4 Ml Vial) 40 mg IVPUSH BID@0800,1700 [facility]; Protocol Last Admin: 05/16/23 09:10 Dose: 40 mg Documented By: JONATHON Gabapentin (Gabapentin 100 Mg Capsule) 200 mg PO DAILY [facility] Last Admin: 05/16/23 09:10 Dose: 200 mg Documented By: JONATHON Gabapentin (Gabapentin 300 Mg Capsule) 300 mg PO BEDTIME [facility] Last Admin: 05/15/23 20:49 Dose: 300 mg Documented By: TATE Dextrose (D5w) 1,000 mls @ 75 mls/hr IVCONT .[id number] [facility] Last Admin: 05/16/23 09:19 Dose: 75 mls/hr Documented By: JONATHON Lisinopril (Lisinopril 10 Mg Tablet) 10 mg PO DAILY [facility]; Protocol Last Admin: 05/16/23 09:10 Dose: 10 mg Documented By: JONATHON Melatonin (Melatonin 3 Mg Tablet) 3 mg PO BEDTIME PRN PRN Reason: Sleep Metoprolol Succinate (Metoprolol Succinate Er 100 Mg Tab.Er.24h) 100 mg PO DAILY [facility]; Protocol Last Admin: 05/16/23 09:09 Dose: 100 mg Documented By: JONATHON Ondansetron HCl (Ondansetron Hcl 4 Mg/2 Ml Vial) 4 mg IVPUSH Q8H PRN PRN Reason: Nausea and Vomiting Pharmacy Consult (Consult Rx Vancomycin Dosing) 1 each MISCELLANE DAILY PRN PRN Reason: Consult order Potassium Chloride (Potassium Chloride Er 20 Meq Tab.Er.Prt) 20 meq PO BID [facility] Last Admin: 05/16/23 09:09 Dose: 20 meq Documented By: JONATHON Quetiapine Fumarate (Quetiapine Fumarate 25 Mg Tablet) 25 mg PO BEDTIME [facility] Last Admin: 05/15/23 20:49 Dose: 25 mg Documented By: TATE Sodium Chloride (0.9 % Sodium Chloride Flush 3 Ml Syringe) 3 ml IVFLUSH QSHIFT [facility] Last Admin: 05/16/23 09:19 Dose: 3 ml Documented By: JONATHON Labs 05/14/23 07:08 05/16/23 12:09 Labs: Laboratory Results - last 24 hr 05/15/23 05/16/23 11:58 06:12 Hold Purple Top SEE NOTE Anion Gap 12 12 Estim Creat Clear Calc 37.3 41.7 Estimated GFR 46 53 Random Glucose 77 103 Calcium 8.7 8.9 Microbiology Microbiology Results: Microbiology 05/13/23 21:57 Blood Culture - Preliminary Blood - Venous No growth after 48 hours. 05/13/23 21:23 Blood Culture - Preliminary Blood - Venous No growth after 48 hours. Assessment and Plan (1) Atrial fibrillation with rapid ventricular response: Status: Acute Plan 68-year-old male past medical history of AFib on Eliquis, CHF with ejection fraction of 15-20% presents the hospital with failure to thrive, decreased oral intake found to have multiple abnormalities Hypernatremia Likely secondary to hypovolemia D5W @75 check BMP this afternoon urine lytes>na 21, serum osmo 328 GABO. Unknown etiology, possibly related to vancomycin Vancomycin stopped as well as lasix Recheck BMP this evening resolved after IV fluids Hyperkalemia Repleted and resolved acute on chronic AFib with RVR. Resolved likely related to CHF exacerbation last echo 03/2023 with EF of 15-20% s/p Digoxin loaded Metoprolol 100 mg daily on eliquis cardiology following HFrEF acute on chronic does not appear to be in overt failure, although BNP over 3000 s/p IV lasix On jardiance at home elevated troponin likely type 2 in the setting of AFib with RVR monitor SIRS. Resolved tachycardia and fever although tachycardia was likely related to rapid ventricular response no clear source s/p broad-spectrum antibiotics negative blood cultures after 48 hours Parkinson's disease continue carbidopa levodopa mental health continue home medications Mod malnutrition/BMI 18 add ensure to diet DVT prophylaxis: Diego Attending Dr. Wood Full tresa, had conversation with significant other Emerita. She stated that she would discuss code status with patient to revisit the possibility of DNR /DNI. Continue hospitalization for treatment of multiple electrolyte abnormalities Time Spent With Patient Time: Total time managing care of this patient today ____ minutes. Quality Stroke Does the patient have a stroke diagnosis?: No VTE Prior VTE?: No VTE Risk Level:: Medical - moderate - high VTE Device Contraindication: Treatment Not Indicated VTE Drug Contraindication: N/A - Med Ordered
[2023-05-16 12:25] LABS: Sodium 153 mmol/L (135-145)
[2023-05-16 12:37] LABS: Osmolality, Serum 328 mosm/kg (281-305)
[2023-05-16 12:38] LABS: Vancomycin Random 7.7 mcg/mL (15-20)
[2023-05-16 13:18] LABS: Potassium Urine Random 64.4 mmol/L
[2023-05-16 15:55] LABS: Anion Gap 18 (12-20); Blood Urea Nitrogen 44 mg/dL (9-16); Calcium 9.3 mg/dL (8.4-10.2); Carbon Dioxide 27 mmol/L (22-29); Chloride 111 mmol/L (96-108); Creatinine Clr Calc Pharmacy 36.3; Estimated Glomerular Filt Rate 45; Glucose Random 95 mg/dL (60-115); Potassium 3.5 mmol/L (3.3-5.1); Sodium 152 mmol/L (135-145)
--- NOTE | 2023-05-16 20:00 | PM.EVENT ---
Event Note Date of Service: 05/17/23 Event Note: Desat to 86 or room air, no resp distress, look very frail, hardly able to communicate, gurgle sound,O2 sat is better after O2. temp 100.7, high risk for aspiraton. CXR PNA, Empiric Ceftriaoxone for aspiration PNA or pneumonitis. Speech/swallow eval in the morning Code status discussed with partner and HCP and is to remain full code at this time, will attempt suctioning to see if mucus pluging maybe playing a role. His a mouth breather and seems to be doing on mask Time Spent With Patient Time: Total time managing care of this patient today ____ minutes.
[2023-05-16 20:58] LABS: Sodium 149 mmol/L (135-145)
[2023-05-16] MEDS: cefTRIAXone sodium 1 GM in 0.9 % Sodium Chloride 50 ML IV (21:12)
--- NOTE | 2023-05-16 23:07 | PC.NURSE ---
2200-pt came in via stretcher, on BIPAP with RT assist on transport. Pt is alert and oriented. while on the floor, he keeps on desating to 70 intermittently. MD notified. Pt O2 sats goes back up when awake.
--- NOTE | 2023-05-16 23:48 | PC.NURSE ---
Pt was desating at 86% on room air. Pt little drowsy/lethargic. MD notified. Pt was suctioned deeply and given 2-3L O2. Moderate thin secretions noted during deep suctioning. Placed on cont tele monitor. NSR /ST on tele.
[2023-05-17] VITALS (8 sets, daily range): BP systolic 116–149; BP diastolic 53–88; PULSE 79–107; RESP 16–22; TEMP 36.3–38.4; O2SAT 92–94
--- NOTE | 2023-05-17 01:30 | MHC.PIE ---
P.TEMP 101.2 I.PT NOTED TO BE WARM,RECTAL TEMP 101.2,SATS 88-89% ON O2 2L VIA OXYMASK.O2 INCREASED TO 3 THEN 4L,SATS 91%,OCC NEELAM NPC.PREVIOUS CXR DONE AT 8PM WAS UNREMARKABLE.REPORTED TO ,PRN TYLENOL SUPP ORDERED,KEEP SATS 88 OR GREATER,SUCTION PRN.MED WITH TYLENOL SUPP. E.CONT TO MONITOR
[2023-05-17] MEDS: Acetaminophen Supp 650 MG SUPP.RECT PR (01:45)
--- NOTE | 2023-05-17 09:41 | PC.NURSE ---
pt failed bedside nursing swallow eval. provider notified.
[2023-05-17] MEDS: Apixaban 5 MG TABLET PO ×2 (10:18→20:02)
[2023-05-17] MEDS: Carbidopa/Levodopa 25/100 TABLET 2 TAB PO ×3 (10:18→20:01)
[2023-05-17] MEDS: Escitalopram Oxalate 5 MG TABLET PO (10:18)
[2023-05-17] MEDS: Dextrose 5 % 1,000 ML 75 ML IVCONT ×2 (10:47→22:41)
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
--- NOTE | 2023-05-17 11:55 | HO.PM.IMPN ---
Subjective Subjective Date of Service: 05/17/23 Interval History: seen and examined this morning follow up for CHF desaturated overnight, probable aspiration event and started on ceftriaxone awake and alert, answers some simple questions with one word answers, limited history/ROS Physical Exam Vital Signs: Vital Signs: Last Vital Signs Temp 99.3 F 05/17/23 11:36 Pulse 85 05/17/23 11:36 Resp 22 H 05/17/23 07:29 BP 116/88 05/17/23 11:36 Pulse Ox 93 05/17/23 11:36 O2 Del Method Room Air 05/17/23 11:36 O2 Flow Rate 5 05/17/23 07:29 Oxygen Flow Rate 2 05/13/23 23:32 BMI result Body Mass Index 18.0 Const: Other: thin, frail, chronically ill appearing General: alert and awake Orientation/consciousness: oriented to person and oriented to place Resp: Other: diminished breath sounds, decreased respiratory effort, no respiratory distress intermittent cough Effort & Inspection: no use of accessory muscles Cardio: Rate: regular rate GI: Inspection: No distended Palpation (GI): Soft to palpation and nontender : Other: barton present Neuro: Other: moves all extremities, following basic commands, slow to answer General: oriented to person and oriented to place Objective Data Active Medications Acetaminophen (Acetaminophen 325 Mg Tablet) 650 mg PO Q6H PRN PRN Reason: Pain, Mild (Pain Scale 1-3) Last Admin: 05/17/23 11:52 Dose: 650 mg Documented By: JONATHON Acetaminophen (Acetaminophen Supp 650 Mg Supp.Rect) 650 mg [place] Q6H PRN PRN Reason: Fever >100.4 Last Admin: 05/17/23 01:45 Dose: 650 mg Documented By: JUVENAL Apixaban (Apixaban 5 Mg Tablet) 5 mg PO BID [facility] Last Admin: 05/17/23 10:18 Dose: 5 mg Documented By: JONATHON Carbidopa/Levodopa (Carbidopa/Levodopa 25/100 Tablet) 2 tab PO TID@0800,1200,2100 [facility] Last Admin: 05/17/23 11:54 Dose: 2 tab Documented By: JONATHON Docusate Sodium (Docusate Sodium 100 Mg Capsule) 100 mg PO DAILY PRN PRN Reason: Constipation Escitalopram Oxalate (Escitalopram Oxalate 5 Mg Tablet) 5 mg PO DAILY [facility] Last Admin: 05/17/23 10:18 Dose: 5 mg Documented By: JONATHON Gabapentin (Gabapentin 100 Mg Capsule) 200 mg PO DAILY [facility] Last Admin: 05/17/23 10:18 Dose: 200 mg Documented By: JONATHON Gabapentin (Gabapentin 300 Mg Capsule) 300 mg PO BEDTIME [facility] Last Admin: 05/16/23 21:37 Dose: Not Given Documented By: REBA Non-Admin Reason: unable to swallow Dextrose (D5w) 1,000 mls @ 75 mls/hr IVCONT .[id number] [facility] Last Admin: 05/17/23 10:47 Dose: 75 mls/hr Documented By: JONATHON Ceftriaxone Sodium 1 gm/ (Sodium Chloride) 50 mls @ 100 mls/hr IV Q24H [facility] Last Infusion: 05/16/23 22:10 Dose: Infused Documented By: REBA Melatonin (Melatonin 3 Mg Tablet) 3 mg PO BEDTIME PRN PRN Reason: Sleep Metoprolol Succinate (Metoprolol Succinate Er 100 Mg Tab.Er.24h) 100 mg PO DAILY [facility]; Protocol Last Admin: 05/17/23 10:18 Dose: 100 mg Documented By: JONATHON Ondansetron HCl (Ondansetron Hcl 4 Mg/2 Ml Vial) 4 mg IVPUSH Q8H PRN PRN Reason: Nausea and Vomiting Quetiapine Fumarate (Quetiapine Fumarate 25 Mg Tablet) 25 mg PO BEDTIME [facility] Last Admin: 05/16/23 21:36 Dose: Not Given Documented By: REBA Non-Admin Reason: unable to swallow Sodium Chloride (0.9 % Sodium Chloride Flush 3 Ml Syringe) 3 ml IVFLUSH QSHIFT [facility] Last Admin: 05/17/23 10:01 Dose: Not Given Documented By: JONATHON Non-Admin Reason: IV Running Labs 05/14/23 07:08 05/17/23 12:27 Labs: Laboratory Results - last 24 hr 05/16/23 05/16/23 05/16/23 12:09 12:45 14:50 Anion Gap 18 Estim Creat Clear Calc 36.3 Estimated GFR 45 Random Glucose 95 Osmolality 328 H Calcium 9.3 Ur Random Sodium 21.0 Ur Random Potassium 64.4 Ur Random Chloride 20.0 Random Vancomycin 7.7 L Assessment and Plan (1) Atrial fibrillation with rapid ventricular response: Status: Acute Plan 68-year-old male past medical history of AFib on Eliquis, CHF with ejection fraction of 15-20% presents the hospital with failure to thrive, decreased oral intake found to have multiple abnormalities acute respiratory failure with hypoxia noted to have episode of hypoxia on evening of 05/16 - likely due to aspiration cxr negative, will continue ceftraixone for possible aspiration pneumonia seen by speech, rec NDD3, nectar thick wean oxygen as tolerate Hypernatremia secondary to hypovolemia, down to 147 today with IVF continue gentle IVF - D5W @75 follow BMP nephro following GABO. ?r/t hypovolemia Vancomycin stopped as well as lasix lisinopril has been on hold SCr improved to 1.19 with IV fluids toxic metatolic encephalopathy seems to be improving since admission, but still not back to baseline multifactorial r/t hypernatremia, GABO, hypoxia brain CT from 05/13 negative for acute changes - showing significant atrophy and chronic changes likely underlying cognitive dysfunction due to parkinson's disease Hypokalemia Replaced and resolved acute on chronic AFib with RVR. Resolved likely related to CHF exacerbation last echo 03/2023 with EF of 15-20% Metoprolol 100 mg daily, hold off on digoxin per cardiology on eliquis cardiology following HFrEF acute on chronic does not appear to be in overt failure, although BNP over 3000 s/p IV lasix On jardiance at home watch fluid status closely not candidate for any aggressive therapy per cardiology elevated troponin likely type 2 in the setting of AFib with RVR monitor SIRS. initially on admission tachycardia and fever although tachycardia was likely related to rapid ventricular response no clear source s/p broad-spectrum antibiotics negative blood cultures after 48 hours Parkinson's disease continue carbidopa levodopa mental health continue home medications Mod malnutrition/BMI 18 add ensure to diet DVT prophylaxis: Diego Attending Dr. Nava Full code, had conversation with significant other/HCP Emerita. She stated that she would discuss code status with patient to revisit the possibility of DNR /DNI Continue hospitalization for treatment of multiple electrolyte abnormalities, hypoxia requiring supplemental oxygen Time Spent With Patient Time: Total time managing care of this patient today ____ minutes. Quality Stroke Does the patient have a stroke diagnosis?: No VTE Prior VTE?: No VTE Risk Level:: Medical - moderate - high VTE Device Contraindication: Treatment Not Indicated VTE Drug Contraindication: N/A - Med Ordered
[2023-05-17 12:52] LABS: Anion Gap 19 (12-20); Blood Urea Nitrogen 41 mg/dL (9-16); Carbon Dioxide 26 mmol/L (22-29); Chloride 106 mmol/L (96-108); Estimated Glomerular Filt Rate > 60; Glucose Random 125 mg/dL (60-115); Potassium 3.5 mmol/L (3.3-5.1); Sodium 147 mmol/L (135-145)
[2023-05-18] VITALS (7 sets, daily range): BP systolic 109–163; BP diastolic 54–92; PULSE 77–93; RESP 18–20; TEMP 36.6–37.2; O2SAT 91–96
[2023-05-18 07:33] LABS: Anion Gap 15 (12-20); Blood Urea Nitrogen 37 mg/dL (9-16); Calcium 8.5 mg/dL (8.4-10.2); Carbon Dioxide 25 mmol/L (22-29); Chloride 107 mmol/L (96-108); Creatinine Clr Calc Pharmacy 51.8; Estimated Glomerular Filt Rate > 60; Glucose Random 116 mg/dL (60-115); Potassium 3.3 mmol/L (3.3-5.1); Sodium 144 mmol/L (135-145)
[2023-05-18] MEDS: Apixaban 5 MG TABLET PO (09:22)
--- NOTE | 2023-05-18 11:51 | MHC.CLN ---
F/U PO INTAKE 25-75%; FAIR TO GOOD DIET RX: REGULAR CHOPPED WITH NT LIQ-APPROPRIATE WILL RE-START MAGIC CUP AND ENSURE MAX BID TO PROMOTE WOUND HEALING ENSURE MAX PROVIDES 300KCALS, 60G PROTEIN WITH 100% ACCEPTANCE MONITOR PO INTAKE AND ENCOURAGE SUPPLEMENTS
--- NOTE | 2023-05-18 12:02 | HO.PM.IMPN ---
Subjective Subjective Date of Service: 05/18/23 Interval History: seen and examined this morning follow up for aspiration pna pt awake, alert and sitting up answers some simple questions. denies sob. unable to obtain full ROS Physical Exam Vital Signs: Vital Signs: Last Vital Signs Temp 98.4 F 05/18/23 11:40 Pulse 92 05/18/23 11:40 Resp 20 05/18/23 11:40 BP 163/92 H 05/18/23 11:40 Pulse Ox 91 L 05/18/23 11:40 O2 Del Method Nasal Cannula 05/18/23 11:40 O2 Flow Rate 3 05/18/23 11:40 Oxygen Flow Rate 2 05/13/23 23:32 BMI result Body Mass Index 18.0 Const: Other: thin, frail, chronically ill appearing General: alert and awake Orientation/consciousness: oriented to person and oriented to place Resp: Other: diminished breath sounds, decreased respiratory effort, no respiratory distress intermittent cough Effort & Inspection: no use of accessory muscles Cardio: Rate: regular rate GI: Inspection: No distended Palpation (GI): Soft to palpation and nontender : Other: barton present Neuro: Other: moves all extremities, following basic commands, slow to answer General: oriented to person and oriented to place Objective Data Active Medications Acetaminophen (Acetaminophen 325 Mg Tablet) 650 mg PO Q6H PRN PRN Reason: Pain, Mild (Pain Scale 1-3) Last Admin: 05/17/23 11:52 Dose: 650 mg Documented By: JONATHON Acetaminophen (Acetaminophen Supp 650 Mg Supp.Rect) 650 mg [place] Q6H PRN PRN Reason: Fever >100.4 Last Admin: 05/17/23 01:45 Dose: 650 mg Documented By: JUVENAL Apixaban (Apixaban 5 Mg Tablet) 5 mg PO BID [facility] Last Admin: 05/18/23 09:22 Dose: 5 mg Documented By: GIANFRANCO Carbidopa/Levodopa (Carbidopa/Levodopa 25/100 Tablet) 2 tab PO TID@0800,1200,2100 [facility] Last Admin: 05/18/23 09:22 Dose: 2 tab Documented By: GIANFRANCO Docusate Sodium (Docusate Sodium 100 Mg Capsule) 100 mg PO DAILY PRN PRN Reason: Constipation Escitalopram Oxalate (Escitalopram Oxalate 5 Mg Tablet) 5 mg PO DAILY [facility] Last Admin: 05/18/23 09:22 Dose: 5 mg Documented By: GIANFRANCO Gabapentin (Gabapentin 100 Mg Capsule) 200 mg PO DAILY [facility] Last Admin: 05/18/23 09:22 Dose: 200 mg Documented By: GIANFRANCO Gabapentin (Gabapentin 300 Mg Capsule) 300 mg PO BEDTIME [facility] Last Admin: 05/17/23 20:02 Dose: 300 mg Documented By: KEITH Ceftriaxone Sodium 1 gm/ (Sodium Chloride) 50 mls @ 100 mls/hr IV Q24H [facility] Last Infusion: 05/17/23 20:31 Dose: Infused Documented By: KEITH Melatonin (Melatonin 3 Mg Tablet) 3 mg PO BEDTIME PRN PRN Reason: Sleep Metoprolol Succinate (Metoprolol Succinate Er 100 Mg Tab.Er.24h) 100 mg PO DAILY [facility]; Protocol Last Admin: 05/18/23 09:22 Dose: 100 mg Documented By: GIANFRANCO Ondansetron HCl (Ondansetron Hcl 4 Mg/2 Ml Vial) 4 mg IVPUSH Q8H PRN PRN Reason: Nausea and Vomiting Quetiapine Fumarate (Quetiapine Fumarate 25 Mg Tablet) 25 mg PO BEDTIME [facility] Last Admin: 05/17/23 20:01 Dose: 25 mg Documented By: KEITH Sodium Chloride (0.9 % Sodium Chloride Flush 3 Ml Syringe) 3 ml IVFLUSH QSHIFT [facility] Last Admin: 05/18/23 09:24 Dose: Not Given Documented By: GIANFRANCO Non-Admin Reason: IV Running Labs 05/18/23 06:52 05/18/23 06:52 Labs: Laboratory Results - last 24 hr 05/17/23 05/17/23 05/18/23 12:27 12:32 06:52 MCV 92.5 MCH 28.6 MCHC 30.9 L RDW 14.1 Plt Count 232 MPV 10.6 Absolute Nucleated RBC 0.000 Nucleated RBC % (auto) 0.0 Hold Purple Top SEE NOTE Anion Gap 19 15 Estim Creat Clear Calc 47.0 51.8 Estimated GFR > 60 > 60 Random Glucose 125 H 116 H Calcium 9.0 8.5 Hold Yellow Top See Note Assessment and Plan (1) Decubitus ulcer of sacral region, unstageable: Status: Acute (2) Aspiration pneumonia: Status: Acute Plan 68-year-old male past medical history of AFib on Eliquis, CHF with ejection fraction of 15-20% presents the hospital with failure to thrive, decreased oral intake admitted for Afib with RVR, hospital course complicated by respiratory failure secondary to aspiration pneumonia. acute respiratory failure with hypoxia noted to have episode of hypoxia on evening of 05/16 - likely due to aspiration cxr negative, will continue ceftraixone for likely aspiration pneumonia seen by speech, downgraded to NDD2 with nectar thick liqs wean oxygen as tolerate Hypernatremia secondary to hypovolemia, down to 144 today with IVF will d/c d5w follow BMP nephro following GABO. ?r/t hypovolemia Vancomycin stopped as well as lasix lisinopril has been on hold resolved with IVF toxic metatolic encephalopathy seems to be improving since admission, but still not back to baseline multifactorial r/t hypernatremia, GABO, hypoxia brain CT from 05/13 negative for acute changes - showing significant atrophy and chronic changes likely underlying cognitive dysfunction due to parkinson's disease HTN bp soft, lisinopril previously d/c due to increasing renal function BP beginning to trend up, may need to resume lisinopril will follow BP trend Hypokalemia Replaced and resolved acute on chronic AFib with RVR. Resolved likely related to CHF exacerbation last echo 03/2023 with EF of 15-20% Metoprolol 100 mg daily, hold off on digoxin per cardiology continue AC with eliquis cardiology following HFrEF acute on chronic does not appear to be in overt failure, although BNP over 3000 s/p IV lasix On jardiance at home watch fluid status closely not candidate for any aggressive therapy per cardiology elevated troponin likely type 2 in the setting of AFib with RVR no further workup necessary at this time Parkinson's disease continue carbidopa levodopa mental health continue home medications Mod malnutrition/BMI 18 add ensure to diet sacral decubitus ulcer, unstagable present on admission malnutrition, bedbound status at baseline contributing seen by surgery - not a good candidate for surgical debridement given multiple medical comorbidities continue local wound care, frequent position changes DVT prophylaxis: Diego Attending Dr. Jones dispo - PT rec LTC, CM will discuss with HCP Full code, had conversation with significant other/HCP Emerita. She stated that she would discuss code status with patient to revisit the possibility of DNR /DNI. Re-addressed today, she is still thinking/talking it over with patient. Continue hospitalization for treatment of hypoxia requiring supplemental oxygen and safe disposition Time Spent With Patient Time: Total time managing care of this patient today ____ minutes. Quality Stroke Does the patient have a stroke diagnosis?: No VTE Prior VTE?: No VTE Risk Level:: Medical - moderate - high VTE Device Contraindication: Treatment Not Indicated VTE Drug Contraindication: N/A - Med Ordered
--- NOTE | 2023-05-18 13:21 | PM.CNGS ---
History of Present Illness Consult details Consult date: 05/18/23 Requesting physician: Nancy Pisano Narrative: 68-year-old male patient with history of Parkinson's, AFib, CHF with EF of 15-20% and cardiomegaly presenting with failure to thrive. Patient was admitted to the hospitalist service on 05/14/2023. Patient was found to have a fever 101 with tachycardia and elevated heart rate. Per his he had some redness in the skin over the coccyx while at home. She has been applying Desitin cream to the site as a protection. Since his admission the skin has become more bluish in color. Surgical consultation is requested for further management. There have been no previous ulcers in this location. Review of Systems Review of Systems: Yes Unobtainable due to mental condition PMFSH Past Medical History Medical History Cardiomyopathy Atrial fibrillation with rapid ventricular response CHF (congestive heart failure) HTN (hypertension) Parkinson disease Family History Family History Mother CAD (coronary artery disease) Surgical History Surgical History H/O spinal fusion Social History Social History Household Members: Unknown / Unable to assess Housing: Unknown / Unable to assess Do you presently have visiting nurse or other home services: Yes Unable to assess alcohol history related to: Unknown Alcohol intake: never Patient Tobacco Use Status: Former Tobacco user e-Cigarette/Vaping Use: Never Used Substance Use Type: Marijuana Advance Directives Date on File: 12/27/21 service: No Current occupational status: retired Meds Allergies Allergy/AdvReac Type Severity Reaction Status Date / Time No Known Allergies Allergy Verified 04/27/23 18:39 Active Medications: Current Medications Acetaminophen (Acetaminophen 325 Mg Tablet) 650 mg PO Q6H PRN PRN Reason: Pain, Mild (Pain Scale 1-3) Last Admin: 05/17/23 11:52 Dose: 650 mg Acetaminophen (Acetaminophen Supp 650 Mg Supp.Rect) 650 mg [place] Q6H PRN PRN Reason: Fever >100.4 Last Admin: 10/05/23 01:45 Dose: 650 mg Apixaban (Apixaban 5 Mg Tablet) 5 mg PO BID [facility] Last Admin: 05/18/23 09:22 Dose: 5 mg Carbidopa/Levodopa (Carbidopa/Levodopa 25/100 Tablet) 2 tab PO TID@0800,1200,2100 [facility] Last Admin: 05/18/23 12:23 Dose: 2 tab Docusate Sodium (Docusate Sodium 100 Mg Capsule) 100 mg PO DAILY PRN PRN Reason: Constipation Escitalopram Oxalate (Escitalopram Oxalate 5 Mg Tablet) 5 mg PO DAILY [facility] Last Admin: 05/18/23 09:22 Dose: 5 mg Gabapentin (Gabapentin 100 Mg Capsule) 200 mg PO DAILY [facility] Last Admin: 05/18/23 09:22 Dose: 200 mg Gabapentin (Gabapentin 300 Mg Capsule) 300 mg PO BEDTIME [facility] Last Admin: 05/17/23 20:02 Dose: 300 mg Ceftriaxone Sodium 1 gm/ (Sodium Chloride) 50 mls @ 100 mls/hr IV Q24H [facility] Last Infusion: 05/17/23 20:31 Dose: Infused Melatonin (Melatonin 3 Mg Tablet) 3 mg PO BEDTIME PRN PRN Reason: Sleep Metoprolol Succinate (Metoprolol Succinate Er 100 Mg Tab.Er.24h) 100 mg PO DAILY [facility]; Protocol Last Admin: 05/18/23 09:22 Dose: 100 mg Ondansetron HCl (Ondansetron Hcl 4 Mg/2 Ml Vial) 4 mg IVPUSH Q8H PRN PRN Reason: Nausea and Vomiting Quetiapine Fumarate (Quetiapine Fumarate 25 Mg Tablet) 25 mg PO BEDTIME [facility] Last Admin: 05/17/23 20:01 Dose: 25 mg Sodium Chloride (0.9 % Sodium Chloride Flush 3 Ml Syringe) [facility] Admin: 05/18/23 09:24 Dose: Not Given Home Medications Medication Instructions Recorded Confirmed Last Taken Type carbidopa 25 mg-levodopa 100 mg 2 tab PO TID@0800,1200,2100 12/23/21 05/14/23 12/26/22 History tablet gabapentin 100 mg capsule 200 mg PO DAILY 12/23/21 05/14/23 12/26/22 History gabapentin 300 mg capsule 300 mg PO BEDTIME 12/23/21 05/14/23 12/25/22 History melatonin 3 mg tablet 3 mg PO BEDTIME PRN Sleep 12/23/21 05/14/23 Unknown History escitalopram oxalate 5 mg tablet 5 mg PO DAILY 04/10/23 05/14/23 Unknown History quetiapine 25 mg tablet 25 mg PO BEDTIME 04/10/23 05/14/23 Unknown History digoxin 125 mcg (0.125 mg) tablet 125 mcg PO Q OTHER DAY 05/14/23 05/14/23 Unknown History empagliflozin 10 mg tablet 10 mg PO DAILY 05/14/23 05/14/23 Unknown History (Jardiance) lisinopril 10 mg tablet 10 mg PO DAILY 05/14/23 05/14/23 Unknown History metoprolol succinate 100 mg 100 mg PO DAILY 05/14/23 05/14/23 Unknown History tablet,extended release 24 hr Physical Exam Vital Signs: Vital Signs: Last Vital Signs Temp 98.4 F 05/18/23 11:40 Pulse 92 05/18/23 11:40 Resp 20 05/18/23 11:40 BP 163/92 H 05/18/23 11:40 Pulse Ox 91 L 05/18/23 11:40 O2 Del Method Nasal Cannula 05/18/23 11:40 O2 Flow Rate 3 05/18/23 11:40 Oxygen Flow Rate 2 05/13/23 23:32 BMI result Body Mass Index 18.0 Const: General: lethargic Nutritional Appearance: thin Orientation/consciousness: lethargic Limitations: physical limitations HEENT: Head: Yes normocephalic and Yes atraumatic Resp: Effort & Inspection: normal respiratory effort, no cough and no respiratory distress GI: Inspection: Yes normal to inspection Palpation (GI): Soft to palpation, nontender and no guarding Back/Spine/Pelvis: Other: Unstageable skin changes noted over the coccyx and sacrum consistent with pressure change. Wound is protected with a pink foam dressing and Desitin. No open wounds are identified. Results Labs 05/18/23 06:52 05/18/23 06:52 Labs: Abnormal lab results 05/18/23 Range/Units 06:52 RBC 4.02 L (4.60-5.80) X10*6/uL Hgb 11.5 L (14.0-18.0) g/dl Hct 37.2 L (42.0-52.0) % MCHC 30.9 L (31.0-36.0) g/dl BUN 37 H (9-16) mg/dL Random Glucose 116 H (60-115) mg/dL Short CBC 05/18/23 Range/Units 06:52 WBC 8.8 (4.8-10.8) X10*3/uL Hgb 11.5 L (14.0-18.0) g/dl Hct 37.2 L (42.0-52.0) % Plt Count 232 (160-400) X10*3/uL BMP 05/18/23 06:52 Sodium 144 Potassium 3.3 Chloride 107 Carbon Dioxide 25 BUN 37 H Creatinine 1.08 Calcium 8.5 Urine 05/13/23 Range/Units 21:55 Urine Color Dark Yellow Urine Appearance Clear Urine pH 5.5 (5.0-9.0) Ur Specific [place] >= 1.030 H (1.005-1.025) Urine Protein 100 (2+) H (Neg-Trace) mg/dL Urine Glucose (UA) >=1000 H (Negative) mg/dL All other labs normal. Assessment and Plan (1) Decubitus ulcer of sacral region, unstageable: Status: Acute Plan Unfortunate 68-year-old male patient with Parkinson's disease and multiple other medical problems, who is mostly bedbound now found to have evidence of a sacral decubitus. Examination reveals ischemic changes in the skin overnight extensive area of the sacrum and coccyx. Patient is currently on oral anticoagulation for AFib. Patient may eventually require debridement however the patient's overall medical condition is quite poor with low ejection fraction and CHF, making debridement under anesthesia unsafe. Recommend turning patient [id number] keeping all pressure off for his back. Continue foam dressing for additional protection. Will continue to monitor. Time Spent With Patient Time: Total time managing care of this patient today ____ minutes. Procedures Date of Service Date of Service: 05/18/23
--- NOTE | 2023-05-18 14:51 | MHC.SL.SWA ---
Speech Pathologist Impression: Oropharyngeal dysphagia, Risk of aspiration. Risk of Aspiration Due to: Neurological Condition History of Pneumonia Poor PO Intake Reduced Cognition Dysphasia Diet Status: DOWNGRADE to ground/mech altered Ensure beverages must be COLD to be considered nectar thick consistency. If cold, administration via cup is OK. If not cold, Ensure must be administered via teaspoon. Liquid Consistency and Strategies for Safe Swallow: Liquid Intake Recommendation: [place] Thick Liquid Intake Strategies: Small Sips No Straws Ensure beverages must be COLD to be considered nectar thick consistency. If cold, administration via cup is OK. If not cold, Ensure must be administered via teaspoon. Solid Food Consistency: Dietary Recommendations: Grnd/Mech Altered (NDD2) Additional Modifications to Solid Foods: Patient will require 1-1 assistance with meal, however encourage independence by seating patient well, having food on tray in front of patient, hand over hand guidance/support to orient intake of food. NO STRAWS, Liquids by tsp or controlled cup sip. Alternate liquids and solids. Do not attempt if patient is lethargic. Discontinue with clinical signs of aspiration: Coughing, throat clearing, increased upper airway noise, drop in 02 sats without rebound. Oral Medication Intake: Crushed with Puree Please contact the pharmacy regarding appropriate crushable or liquid drug formulations that are available whenever modified delivery is recommended. Compensatory Strategies and Precautions to be Taken for Safe Swallow: Sitting Upright (90 deg) No Straw Liquids from Cup Liquids from Spoon Small Bites and Sips Alternate Liquids/Solids Rate of Ingestion Change Supervision While Eating and Drinking for Safe Swallow: Total Assistance (1:1) Foods to Avoid: Mixed consistencies, difficult to chew solids. Nutritional supplements must be cold to be at [place] THICK consistency. Only administer via teaspoon if not appropriately chilled. Swallowing Recommended Treatments: Compens. Strategy Educat. Recommendation for Speech: Inpatient Speech Therapy Modified Barium Swallow Study - Outpatient Patient seen 2X by STAFFING ASSISTANT on this date. During morning visit, patient tolerated nectar thick liquids via cup sip and thin liquids via teaspoon. No solids trialed in morning visit. Patient seen again for lunch. Patient's tray had chopped chicken. Patient presented w/ severely prolonged mastication, therefore patient downgraded to ground solids. Recommend patient DOWNGRADE with Ground Mechanical/Altered solids (NDD2), [place] Thick Liquids, Pills crushed in puree. Ice chips and thin liquid via teaspoon ok w/ STAFFING ASSISTANT voice professor supervision. Requires 1-1 assist. Do not feed if patient is too lethargic and not engaged. Ensure beverages must be COLD to be considered nectar thick consistency. If cold, administration via cup is OK. If not cold, Ensure must be administered via teaspoon. Continue to recommend outpatient MBS to better analyze and document swallow function due to hx Parkinsons and previous hx aspiration pna. This was discussed w/ patient's on this date. Frequency/Duration: M-F while inpatient Postmaster Relief Clinican/Clinical Fellow: No Supervisory Statement: I have reviewed and agree with the student/clinical fellow's documentation: N/A Speech Language Pathologist: Martha Olvera M.A., CCC-STAFFING ASSISTANT
--- NOTE | 2023-05-18 15:36 | MHC.CM.PN ---
CM MET WITH PT AND HCP, TERRA ELLISON REPORTS SHE IS CONSIDERING LTC PLACEMENT FOR THE PT MARCELLUS EXPLAINED THE PROCESS AND INFORMED HER [place]FERR[place] [facility] [place] SHE REPORTS SHE KNOWS THEY WILL TAKE HIS ASSETS SINCE THEY ARE NOT AND THE HOME IS HIS SHE STATES SHE WILL THINK ABOUT IT FURTHER AND DISCUSS IT WITH PT SHE IS AWARE THE FS REFERRAL HAS BEEN SENT BUT SHE CAN CHANGE HER MIND IF SHE CHOOSES
[2023-05-19 03:46] VITALS: BP 108/70; PULSE 95; RESP 18; TEMP 37.1; O2SAT 93
--- NOTE | 2023-05-19 06:51 | PM.EVENT ---
Event Note Date of Service: 05/19/23 Event Note: Desat into 70s, no respiratory distress, suctioned and NRB applied, O2 sat now 93%. This has been happening nightly. Repeat CXR, revisit code status with HCP Time Spent With Patient Time: Total time managing care of this patient today ____ minutes.
[2023-05-19 08:00] VITALS: BP 129/79; PULSE 101; RESP 22; TEMP 36.9; O2SAT 92
[2023-05-19 11:36] VITALS: BP 115/58; PULSE 85; RESP 20; TEMP 36.1; O2SAT 90
--- NOTE | 2023-05-19 12:30 | HO.PM.IMPN ---
Subjective Subjective Date of Service: 05/19/23 Interval History: patient seen and examined this morning follow up for multiple issues including aspiration pneumonia, afib with RVR, encephalopathy and malnutrition had continued hypoxia, desaturations overnight less responsive, initially with eyes open but not responding verbally - on follow up eval, patient not opening eyes to verbal stimuli. unable to provide any history or ROS Physical Exam Vital Signs: Vital Signs: Last Vital Signs Temp 97.0 F 05/19/23 11:36 Pulse 85 05/19/23 11:36 Resp 20 05/19/23 11:36 BP 115/58 L 05/19/23 11:36 Pulse Ox 90 L 05/19/23 11:36 O2 Del Method Nasal Cannula 05/19/23 11:36 O2 Flow Rate 3.5 05/19/23 11:36 Oxygen Flow Rate 2 05/13/23 23:32 BMI result Body Mass Index 18.0 Const: Other: patient not responsive to verbal stimuli frail, chronically ill appearing Resp: Other: mild tachypnea Cardio: Rate: regular rate GI: Inspection: No distended Palpation (GI): Soft to palpation Neuro: Other: unable to assess Extrem: General: Yes no pedal edema Objective Data Active Medications Acetaminophen (Acetaminophen Supp 650 Mg Supp.Rect) 650 mg VA Q6H PRN PRN Reason: Fever >100.4 Last Admin: 05/17/23 01:45 Dose: 650 mg Documented By: JUVENAL Albuterol/Ipratropium (Albuterol/Iprat 2.5/0.5mg 3 Ml Ampul.Neb) 3 ml INHALE RQ6H WHILE AWAKE PRN PRN Reason: Shortness of Breath/Wheezing Apixaban (Apixaban 5 Mg Tablet) 5 mg PO BID STEPH Last Admin: 05/19/23 09:52 Dose: 5 mg Documented By: ROSA Lorazepam (Lorazepam 2 Mg/Ml Vial) 0.25 mg IVPUSH Q4H PRN PRN Reason: anxiety/restlessness Morphine Sulfate (Morphine Sulfate 2 Mg/Ml Cartridge) 2 mg IM Q4H PRN PRN Reason: Discomfort/Shortness of breath Ondansetron HCl (Ondansetron Hcl 4 Mg/2 Ml Vial) 4 mg IVPUSH Q8H PRN PRN Reason: Nausea and Vomiting Scopolamine (Scopolamine 1.5 Mg Patch.Td.3) 1.5 mg TRANSDERMA Q72H [facility] Sodium Chloride (0.9 % Sodium Chloride Flush 3 Ml Syringe) 3 ml IVFLUSH QSHIFT STEPH Last Admin: 05/19/23 09:52 Dose: 3 ml Documented By: ROSA Labs 05/18/23 06:52 05/18/23 06:52 Microbiology Microbiology Results: Microbiology 05/13/23 21:57 Blood Culture - Final Blood - Venous No growth after 5 days. 05/13/23 21:23 Blood Culture - Final Blood - Venous No growth after 5 days. Assessment and Plan (1) Aspiration pneumonia: Status: Acute (2) Decubitus ulcer of sacral region, unstageable: Status: Acute (3) Atrial fibrillation with rapid ventricular response: Status: Acute Plan This is a 68-year-old male past medical history of AFib on Eliquis, CHF with ejection fraction of 15-20% presents the hospital with failure to thrive, decreased oral intake admitted for Afib with RVR, hospital course complicated by respiratory failure secondary to aspiration pneumonia who continues to desaturate and has become more lethargic. Overall poor prognosis, multiple underlying medical co-morbidities and failure to improve with current therapies and worsening mental status, progressive hypoxia discussed with HCP/significant other and ultimately elected to change to COMFORT MEASURES ONLY status. acute respiratory failure with hypoxia secondary to aspiration pneumonia toxic metabolic encephalopthy - multifactorial r/t hypoxia, aspiration, hypernatremia, afib, chf and imaging showing significant atrophy and chronic changes indicating likelihood of underlying cognitive dysfunction dysphagia atrial fibrillation with RVR. HFrEF. EF significantly reduced 15-20% Type 2 MA related to demand in the setting of afib with RVR. not a candidate for any aggressive intervention per cardiology. Hypernatremia GABO. HTN Hypokalemia Parkinson's disease. primarily bedbound at baseline. Mod malnutrition/BMI 18 sacral decubitus ulcer, unstagable. present on admission. not a good candidate for surgical debridement given multiple medical comorbidities Will start morphine, ativan and scopolomine for comfort. all other medications will be discontinued. Continue hospitalization for comfort measures Time Spent With Patient Time: Total time managing care of this patient today ____ minutes. Quality Stroke Does the patient have a stroke diagnosis?: No VTE Prior VTE?: No VTE Risk Level:: Medical - moderate - high VTE Device Contraindication: Treatment Not Indicated VTE Drug Contraindication: N/A - Med Ordered
--- NOTE | 2023-05-19 12:47 | MHC.CM.PN ---
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
[2023-05-19 15:13] VITALS: RESP 20
[2023-05-19 18:57] VITALS: RESP 20
--- NOTE | 2023-05-20 06:53 | PM.EVENT ---
Event Note Date of Service: 05/20/23 Event Note: ativan adjusted to 1 mg q4 prn, and morphine 2 mg q1 hrs for comfort Time Spent With Patient Time: Total time managing care of this patient today ____ minutes.
[2023-05-20 07:27] VITALS: RESP 26
--- NOTE | 2023-05-20 11:12 | HO.PM.IMPN ---
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 unable to provide history Physical Exam Vital Signs: Vital Signs: Last Vital Signs Temp 97.0 F 05/19/23 11:36 Pulse 85 05/19/23 11:36 Resp 26 H 05/20/23 07:27 BP 115/58 L 05/19/23 11:36 Pulse Ox 90 L 05/19/23 11:36 O2 Del Method Nasal Cannula 05/19/23 11:36 O2 Flow Rate 3.5 05/19/23 11:36 Oxygen Flow Rate 2 05/13/23 23:32 BMI result Body Mass Index 18.0 Const: Other: eyes open appears comfortable, breathing easy Objective Data Active Medications Acetaminophen (Acetaminophen Supp 650 Mg Supp.Rect) 650 mg DC Q6H PRN PRN Reason: Fever >100.4 Last Admin: 05/17/23 01:45 Dose: 650 mg Documented By: JUVENAL Lorazepam (Lorazepam 2 Mg/Ml Vial) 1 mg IVPUSH Q4H PRN PRN Reason: anxiety/restlessness Last Admin: 05/20/23 07:43 Dose: 1 mg Documented By: ROSA Morphine Sulfate (Morphine Sulfate 2 Mg/Ml Cartridge) 2 mg IVPUSH Q1H PRN PRN Reason: Discomfort/Shortness of breath Last Admin: 05/20/23 10:48 Dose: 2 mg Documented By: ROSA Ondansetron HCl (Ondansetron Hcl 4 Mg/2 Ml Vial) 4 mg IVPUSH Q8H PRN PRN Reason: Nausea and Vomiting Scopolamine (Scopolamine 1.5 Mg Patch.Td.3) 1.5 mg TRANSDERMA Q72H [facility] Last Admin: 05/19/23 13:46 Dose: 1.5 mg Documented By: ROSA Sodium Chloride (0.9 % Sodium Chloride Flush 3 Ml Syringe) 3 ml IVFLUSH QSHIFT [facility] Last Admin: 05/20/23 07:44 Dose: 3 ml Documented By: ROSA Labs 05/18/23 06:52 05/18/23 06:52 Assessment and Plan (1) Aspiration pneumonia: Status: Acute (2) Decubitus ulcer of sacral region, unstageable: Status: Acute (3) Elevated troponin: Status: Acute (4) Atrial fibrillation with rapid ventricular response: Status: Acute Plan This is a 68-year-old male past medical history of AFib on Eliquis, CHF with ejection fraction of 15-20% presents the hospital with failure to thrive, decreased oral intake admitted for Afib with RVR, hospital course complicated by respiratory failure secondary to aspiration pneumonia who continues to desaturate and has become more lethargic. Overall poor prognosis, multiple underlying medical co-morbidities and failure to improve with current therapies and worsening mental status, progressive hypoxia discussed with HCP/significant other and ultimately elected to change to COMFORT MEASURES ONLY status. acute respiratory failure with hypoxia secondary to aspiration pneumonia toxic metabolic encephalopthy - multifactorial r/t hypoxia, aspiration, hypernatremia, afib, chf and imaging showing significant atrophy and chronic changes indicating likelihood of underlying cognitive dysfunction dysphagia atrial fibrillation with RVR. HFrEF. EF significantly reduced 15-20% Type 2 ND related to demand in the setting of afib with RVR. not a candidate for any aggressive intervention per cardiology. Hypernatremia GABO. HTN Hypokalemia Parkinson's disease. primarily bedbound at baseline. Mod malnutrition/BMI 18 sacral decubitus ulcer, unstagable. present on admission. not a good candidate for surgical debridement given multiple medical comorbidities Continue morphine, ativan and scopolomine for comfort. all other medications discontinued. Continue hospitalization for comfort measures Time Spent With Patient Time: Total time managing care of this patient today ____ minutes. Quality Stroke Does the patient have a stroke diagnosis?: No VTE Prior VTE?: No VTE Risk Level:: Medical - moderate - high VTE Device Contraindication: Treatment Not Indicated VTE Drug Contraindication: N/A - Med Ordered
[2023-05-20 15:11] VITALS: RESP 26
[2023-05-20 19:07] VITALS: RESP 24; TEMP 38.8
[2023-05-21] VITALS: RESP 16
[2023-05-21 07:12] VITALS: RESP 22
--- NOTE | 2023-05-21 11:27 | HO.PM.IMPN ---
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 unable to provide history Physical Exam Vital Signs: Vital Signs: Last Vital Signs Temp 101.9 F H 05/20/23 19:07 Pulse 85 05/19/23 11:36 Resp 22 H 05/21/23 07:12 BP 115/58 L 05/19/23 11:36 Pulse Ox 90 L 05/19/23 11:36 O2 Del Method Nasal Cannula 05/19/23 11:36 O2 Flow Rate 3.5 05/19/23 11:36 Oxygen Flow Rate 2 05/13/23 23:32 BMI result Body Mass Index 18.0 Appearing in no acute distress Lungs normal expansion Objective Data Active Medications Acetaminophen (Acetaminophen Supp 650 Mg Supp.Rect) 650 mg [place] Q6H PRN PRN Reason: Fever >100.4 Last Admin: 05/20/23 20:06 Dose: 650 mg Documented By: CHELSEA Lorazepam (Lorazepam 2 Mg/Ml Vial) 1 mg IVPUSH Q4H PRN PRN Reason: anxiety/restlessness Last Admin: 05/21/23 07:36 Dose: 1 mg Documented By: MARGRET Morphine Sulfate (Morphine Sulfate 2 Mg/Ml Cartridge) 2 mg IVPUSH Q1H PRN PRN Reason: Discomfort/Shortness of breath Last Admin: 05/21/23 07:37 Dose: 2 mg Documented By: MARGRET Ondansetron HCl (Ondansetron Hcl 4 Mg/2 Ml Vial) 4 mg IVPUSH Q8H PRN PRN Reason: Nausea and Vomiting Scopolamine (Scopolamine 1.5 Mg Patch.Td.3) 1.5 mg TRANSDERMA Q72H [facility] Last Admin: 05/19/23 13:46 Dose: 1.5 mg Documented By: ROSA Sodium Chloride (0.9 % Sodium Chloride Flush 3 Ml Syringe) [facility] Last Admin: 05/21/23 07:36 Dose: 3 ml Documented By: MARGRET Labs 05/18/23 06:52 05/18/23 06:52 Assessment and Plan (1) Aspiration pneumonia: Status: Acute (2) Decubitus ulcer of sacral region, unstageable: Status: Acute (3) Elevated troponin: Status: Acute (4) Atrial fibrillation with rapid ventricular response: Status: Acute Plan This is a 68-year-old male past medical history of AFib on Eliquis, CHF with ejection fraction of 15-20% presents the hospital with failure to thrive, decreased oral intake admitted for Afib with RVR, hospital course complicated by respiratory failure secondary to aspiration pneumonia who continues to desaturate and has become more lethargic. Overall poor prognosis, multiple underlying medical co-morbidities and failure to improve with current therapies and worsening mental status, progressive hypoxia discussed with HCP/significant other and ultimately elected to change to COMFORT MEASURES ONLY status. acute respiratory failure with hypoxia secondary to aspiration pneumonia toxic metabolic encephalopthy - multifactorial r/t hypoxia, aspiration, hypernatremia, afib, chf and imaging showing significant atrophy and chronic changes indicating likelihood of underlying cognitive dysfunction dysphagia atrial fibrillation with RVR. HFrEF. EF significantly reduced 15-20% Type 2 PA related to demand in the setting of afib with RVR. not a candidate for any aggressive intervention per cardiology. Hypernatremia GABO. HTN Hypokalemia Parkinson's disease. primarily bedbound at baseline. Mod malnutrition/BMI 18 sacral decubitus ulcer, unstagable. present on admission. not a good candidate for surgical debridement given multiple medical comorbidities Continue morphine, ativan and scopolomine for comfort. all other medications discontinued. Continue hospitalization for comfort measures Time Spent With Patient Time: Total time managing care of this patient today ____ minutes. Quality Stroke Does the patient have a stroke diagnosis?: No VTE Prior VTE?: No VTE Risk Level:: Medical - moderate - high VTE Device Contraindication: Treatment Not Indicated VTE Drug Contraindication: N/A - Med Ordered
--- NOTE | 2023-05-21 11:44 | MHC.SL.SWA ---
Addendum entered and electronically signed by Betty Aleman MA, CCC-FOUNTAIN BRUSH ASSEMBLER 05/21/23 11:47: Per TIP SCOURER, ST intervention no longer warranted and to be d/c. 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 Original Note: Speech Pathologist Impression: Risk of aspiration, oropharyngeal dysphagia Risk of Aspiration Due to: Neurological Condition History of Pneumonia Poor PO Intake Reduced Cognition Dysphasia Diet Status: Recommend DOWNGRADE with PUREED solids (NDD1), CONTINUE w/ [place] Thick Liquids, Pills crushed in puree. Ice chips and thin liquid via teaspoon ok w/ FOUNTAIN BRUSH ASSEMBLER land inspector supervision. Do not feed if patient is too lethargic and not engaged. Ensure beverages must be COLD to be considered nectar thick consistency. If cold, administration via cup is OK. If not cold, Ensure must be administered via teaspoon. Liquid Consistency and Strategies for Safe Swallow: Liquid Intake Recommendation: [place] Thick Liquid Intake Strategies: Small Sips No Straws Solid Food Consistency: Dietary Recommendations: Pureed (NDD1) Oral Medication Intake: Crushed with Puree Please contact the pharmacy regarding appropriate crushable or liquid drug formulations that are available whenever modified delivery is recommended. Compensatory Strategies and Precautions to be Taken for Safe Swallow: Sitting Upright (90 deg) Double Swallow No Straw Liquids from Spoon Small Bites and Sips Alternate Liquids/Solids Rate of Ingestion Change Oral Check Avoid Specific Foods Supervision While Eating and Drinking for Safe Swallow: Total Assistance (1:1) Foods to Avoid: Mixed consistencies. Nutritional supplements must be cold to be at [place]CT[place] THICK consistency. Only administer via teaspoon if not appropriately chilled. Swallowing Recommended Treatments: Compens. Strategy Educat. Recommendation for Speech: Inpatient Speech Therapy Mental Health Social Worker Clinican/Clinical Fellow: No Supervisory Statement: I have reviewed and agree with the student/clinical fellow's documentation: N/A Speech Language Pathologist: Betty Aleman M.A., CCC-FOUNTAIN BRUSH ASSEMBLER
--- NOTE | 2023-05-21 11:46 | MHC.CLN ---
F/U PT STATUS CHANGED TO DENIER CONTROL OPERATOR PO INTAKE POOR DIET RX: PUREED WITH NT LIQ WILL D/C SUPPLEMENTS R/T DENIER CONTROL OPERATOR WILL FOLLOW WITH TEAM AND PROVIDE SUPPORT NEEDED
[2023-05-21 15:03] VITALS: RESP 26
[2023-05-21 19:57] VITALS: TEMP 37.5
[2023-05-21 23:40] VITALS: BP 120/89; PULSE 56; RESP 18; TEMP 38.8; O2SAT 76
[2023-05-22 02:30] VITALS: TEMP 37.6
[2023-05-22 08:00] VITALS: RESP 30
--- NOTE | 2023-05-22 13:48 | HO.PM.IMPN ---
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 unable to provide history Physical Exam Vital Signs: Vital Signs: Last Vital Signs Temp 99.6 F 05/22/23 02:30 Pulse 56 05/21/23 23:40 Resp 30 H 05/22/23 08:00 BP 120/89 05/21/23 23:40 Pulse Ox 76 L 05/21/23 23:40 O2 Del Method Nasal Cannula 05/21/23 23:40 O2 Flow Rate 3 05/21/23 23:40 Oxygen Flow Rate 2 05/13/23 23:32 BMI result Body Mass Index 18.0 somnolent Objective Data Active Medications Acetaminophen (Acetaminophen Supp 650 Mg Supp.Rect) 650 mg [place] Q6H PRN PRN Reason: Fever >100.4 Last Admin: 05/21/23 19:12 Dose: 650 mg Documented By: MARGRET Lorazepam (Lorazepam 2 Mg/Ml Vial) 1 mg IVPUSH Q4H PRN PRN Reason: anxiety/restlessness Last Admin: 05/22/23 08:39 Dose: 1 mg Documented By: MARGRET Morphine Sulfate (Morphine Sulfate 2 Mg/Ml Cartridge) 2 mg IVPUSH Q1H PRN PRN Reason: Discomfort/Shortness of breath Last Admin: 05/22/23 11:09 Dose: 2 mg Documented By: MARGRET Ondansetron HCl (Ondansetron Hcl 4 Mg/2 Ml Vial) 4 mg IVPUSH Q8H PRN PRN Reason: Nausea and Vomiting Scopolamine (Scopolamine 1.5 Mg Patch.Td.3) 1.5 mg TRANSDERMA Q72H [facility] Last Admin: 05/22/23 11:09 Dose: 1.5 mg Documented By: MARGRET Sodium Chloride (0.9 % Sodium Chloride Flush 3 Ml Syringe) 3 ml IVFLUSH QSHIFT [facility] Last Admin: 05/22/23 08:40 Dose: 3 ml Documented By: MARGRET Labs 05/18/23 06:52 05/18/23 06:52 Assessment and Plan (1) Aspiration pneumonia: Status: Acute (2) Decubitus ulcer of sacral region, unstageable: Status: Acute (3) Elevated troponin: Status: Acute (4) Atrial fibrillation with rapid ventricular response: Status: Acute Plan This is a 68-year-old male past medical history of AFib on Eliquis, CHF with ejection fraction of 15-20% presents the hospital with failure to thrive, decreased oral intake admitted for Afib with RVR, hospital course complicated by respiratory failure secondary to aspiration pneumonia who continues to desaturate and has become more lethargic. Overall poor prognosis, multiple underlying medical co-morbidities and failure to improve with current therapies and worsening mental status, progressive hypoxia discussed with HCP/significant other and ultimately elected to change to COMFORT MEASURES ONLY status. Continue morphine, ativan and scopolomine for comfort. all other medications discontinued. no lab draws or vital signs scheduled acute respiratory failure with hypoxia secondary to aspiration pneumonia toxic metabolic encephalopthy - multifactorial r/t hypoxia, aspiration, hypernatremia, afib, chf and imaging showing significant atrophy and chronic changes indicating likelihood of underlying cognitive dysfunction dysphagia. Not eating, somnolent atrial fibrillation with RVR. not on manager monitoring HFrEF. EF significantly reduced 15-20%. Type 2 VA related to demand in the setting of afib with RVR. not a candidate for any aggressive intervention per cardiology. GABO.Resolved HTN. not checking at this time. Hypokalemia, hypernatremia. Resolved Parkinson's disease. primarily bedbound at baseline. Mod malnutrition/BMI 18 sacral decubitus ulcer, unstagable. present on admission. not a good candidate for surgical debridement given multiple medical comorbidities Continue hospitalization for comfort measures Time Spent With Patient Time: Total time managing care of this patient today ____ minutes. Quality Stroke Does the patient have a stroke diagnosis?: No VTE Prior VTE?: No VTE Risk Level:: Medical - moderate - high VTE Device Contraindication: Treatment Not Indicated VTE Drug Contraindication: N/A - Med Ordered
--- NOTE | 2023-05-22 14:32 | PC.NURSE ---
Pt seen and evaluated this morning. Pt RR 30. Per OCT, no PRN morphine or ativan was given overnight. This RN administered PRN doses of morphine and ativan this morning; RR reduced to 20. Pt kept comfortable throughout day with frequent administrations of PRN medications. Pt resting comfortably at this time with family at bedside.
[2023-05-22 15:26] VITALS: RESP 9
[2023-05-22 17:04] VITALS: RESP 36
--- NOTE | 2023-05-23 01:04 | PM.EVENT ---
Event Note Date of Service: 05/23/23 Event Note: I was called to patient's bedside to pronounce the patient. No spontaneous movements were present. There was no response to verbal or tactile stimulus. Pupils were mid dilated and fixed. No breath sounds were appreciated over either lung field. No carotid pulses were palpable. No heart sounds were auscultated over entire precordium. Patient was on comfort measures only. Patient pronounced on 05/23/2023 at 00:50. Meena, patient's partner and Health Care proxy was called and notified. Condolences ordered. Time Spent With Patient Time: Total time managing care of this patient today ____ minutes.
--- NOTE | 2023-06-05 15:15 | PM.DDS ---
Discharge Sum: Prov Provider Primary care physician: Lachelle Simon MD Consults: 05/14/23 06:18 Consult to Cardiology Routine Consulting Provider: [facility] [place] Cardiovascular Services Reason for consultation: CHF? Has provider been notified: No 05/16/23 19:39 Consult to Nephrology Routine Consulting Provider: Jonathan Jeff Reason for consultation: Hypernatremia Has provider been notified: No 05/18/23 11:29 Consult to General Surgery Routine Consulting Provider: [facility] [place] General Surgeons Reason for consultation: coccyx wound ?debridement Has provider been notified: No Pronouncing clinician: Vanesa Medrano Discharge Sum: Diag Contributing Factors (1) Aspiration pneumonia: (2) Decubitus ulcer of sacral region, unstageable: (3) Elevated troponin: (4) Atrial fibrillation with rapid ventricular response: Discharge Sum: Summary Date and Time Date of : 05/23/23 Time of : 00:50 Summary Details: HP as per admitting provider. 68-year-old male with past medical history of Parkinson's disease, AFib on Eliquis, CHF with ejection fraction of 15-20 % cardiomegaly presents the emergency room with complaints of 3 days of failure to thrive and decreased oral intake. Patient is oriented to self and place but otherwise confused, not directable, not giving good history. On arrival to the ED patient was found to have a fever of 101, tachycardic with a heart rate in the 110s to 140s, and O2 was 91% on room air. BP stable Patient was found to be in AFib with RVR, with lab significant for troponin of 192 that decreased to 168. Chest x-ray showed unremarkable results, UA negative, CT head and neck negative, COVID influenza and RSV negative. Patient started on antibiotics and CT chest was ordered. Chest CT shows limited detailed evaluation due to respiratory motion artifact but there seems to be interstitial edema, and dependent opacities in the bilateral lower lobes suggestive of atelectasis pronouncing physician note I was called to patient's bedside to pronounce the patient. No spontaneous movements were present. There was no response to verbal or tactile stimulus. Pupils were mid dilated and fixed. No breath sounds were appreciated over either lung field. No carotid pulses were palpable. No heart sounds were auscultated over entire precordium. Patient was on comfort measures only. Patient pronounced on 05/23/2023 at 00:50. Meena, patient's partner and Health Care proxy was called and notified . Condolences ordered. Treated for aspiration pneumonia intially, Patients condition worsened throughout admission and it was decided that patient would be changed to [employer]. He was started on morphine, ativan and scopolomine for comfort. all other medications discontinued. no lab draws or vital signs scheduled Acute respiratory failure with hypoxia secondary to aspiration pneumonia Toxic metabolic encephalopthy - multifactorial r/t hypoxia, aspiration, hypernatremia, afib, chf and imaging showing significant atrophy and chronic changes indicating likelihood of underlying cognitive dysfunction dysphagia. atrial fibrillation with RVR. HFrEF. EF significantly reduced 15-20%. Type 2 ME related to demand in the setting of afib with RVR. GABO. HTN. Hypokalemia, hypernatremia. Resolved Parkinson's disease. Mod malnutrition/BMI 18 sacral decubitus ulcer, unstagable. present on admission. not a good candidate for surgical debridement given multiple medical comorbidities Additional Data Attending physician: Cristy Spangler NP
--- NOTE | 2023-06-14 14:25 | HO.SKINPHOTO ---
Location: Category: Stage: Length: Width: Depth: cm Location: Category: Stage: Length: Width: Depth: cm Location: Category: Stage: Length: Width: Depth: cm Location: Category: Stage: Length: Width: Depth: cm Location: Category: Stage: Length: Width: Depth: cm Location: Category: Stage: Length: Width: Depth: cm
== END 2023-05-23 00:50 | disposition expired ==
LOC: HO.ED 05-14 02:18 → HO.EDOVER 05-14 02:33 → HO.IMC 05-14 09:45
PROVIDERS: Emergency Medicine; Physician Assistant Medical; Admitting Provider Internal Medicine; Emergency Provider Emergency Medicine Emergency Medical Services; PCP Internal Medicine; Visit Provider Nurse Practitioner Acute Care
DX: I48.91 Unspecified atrial fibrillation (principal); G92.8 Other toxic encephalopathy; I21.A1 Myocardial infarction type 2; I50.23 Acute on chronic systolic (congestive) heart failure; J69.0 Pneumonitis due to inhalation of food and vomit; J96.01 Acute respiratory failure with hypoxia; J98.11 Atelectasis; N17.9 Acute kidney failure, unspecified; E87.0 Hyperosmolality and hypernatremia; E44.0 Moderate protein-calorie malnutrition; Z68.1 Body mass index [BMI] 19.9 or less, adult; G20.A1 Parkinson's disease without dyskinesia, without mention of fluctuations; E87.6 Hypokalemia; E86.1 Hypovolemia; I42.9 Cardiomyopathy, unspecified; Z98.1 Arthrodesis status; I11.0 Hypertensive heart disease with heart failure; R13.10 Dysphagia, unspecified; L89.150 Pressure ulcer of sacral region, unstageable; Z74.01 Bed confinement status; Z51.5 Encounter for palliative care; Z20.822 Contact with and (suspected) exposure to COVID-19; Z87.891 Personal history of nicotine dependence; Z79.01 Long term (current) use of anticoagulants; Z79.899 Other long term (current) drug therapy
CPT/HCPCS: 36415; 70450; 71045; 71250; 72125; 73560; 80048; 80053; 80076; 80162; 80202; 80307; 81001; 82436; 82550; 82565; 82803; 83605; 83690; 83735; 83880; 83930; 84133; 84145; 84295; 84300; 84443; 84484; 85025; 85027; 85610; 86140; 86850; 86900; 86901; 87040; 87502; 87635; 92526; 92610; 92950; 93005; 97110; 97162; 99285; C1758; J0131; J0696; J1940; J2060; J2270; J2543; J3371

== ENCOUNTER → 2023-05-14 02:28 | Outpatient (BNV) | payer MEDICARE, SELFPAY | PROVIDERS: Admitting Provider Internal Medicine; Emergency Provider Emergency Medicine Emergency Medical Services; PCP Internal Medicine; Visit Provider Internal Medicine | DX: J69.0 Pneumonitis due to inhalation of food and vomit (principal); L89.150 Pressure ulcer of sacral region, unstageable; R79.89 Other specified abnormal findings of blood chemistry; I48.91 Unspecified atrial fibrillation | CPT/HCPCS: 99223; 99231; 99232; 99233; 99239; 99499 ==

== ENCOUNTER → 2023-05-14 02:28 | Outpatient (BNV) | payer MEDICARE, SELFPAY | PROVIDERS: Admitting Provider Internal Medicine; Emergency Provider Emergency Medicine Emergency Medical Services; PCP Internal Medicine; Visit Provider Internal Medicine | DX: I48.91 Unspecified atrial fibrillation (principal); I42.9 Cardiomyopathy, unspecified | CPT/HCPCS: 99223; 99233 ==

== ENCOUNTER → 2023-05-14 02:28 | Outpatient (BNV) | payer MEDICARE, SELFPAY | PROVIDERS: Admitting Provider Internal Medicine; Emergency Provider Emergency Medicine Emergency Medical Services; PCP Internal Medicine; Visit Provider Surgery | DX: L89.150 Pressure ulcer of sacral region, unstageable (principal) | CPT/HCPCS: 99222; 99232 ==